=== PATIENT | male | born 1980 | race Caucasian/White ===

== ENCOUNTER 2019-06-04 10:26 | Outpatient (CLI) | payer MEDICAID, SELFPAY ==
[2019-06-04 11:35] LABS: Chol HDL Ratio 5.33 mg/dL (1.0-5.00); Cholesterol 192 mg/dL (0-200); HDL Cholesterol 36 mg/dL (60-100); LDL Cholesterol Calculated 110 mg/dL (50-129); LDL HDL Ratio 3.06 RATIO (0.00-3.22); Triglycerides 229 mg/dL (0-150)
[2019-06-04 12:24] LABS: Estmated Average Glucose 235; Hemoglobin A1C 9.8 % (4.0-6.0)
== END 2019-06-04 10:27 | disposition home or self-care (01) ==
LOC: LAB 10:33
PROVIDERS: Family Provider Family Medicine; PCP Family Medicine; Visit Provider Nurse Practitioner
DX: F31.73 Bipolar disorder, in partial remission, most recent episode manic (principal); Z79.899 Other long term (current) drug therapy
CPT/HCPCS: 80061; 83036

== ENCOUNTER → 2019-07-09 07:54 | Outpatient (BNVA) | payer MEDICAID, SELFPAY | PROVIDERS: Family Provider Family Medicine; PCP Family Medicine; Visit Provider Social Worker Clinical | DX: F43.12 Post-traumatic stress disorder, chronic (principal); F33.1 Major depressive disorder, recurrent, moderate; F10.20 Alcohol dependence, uncomplicated | CPT/HCPCS: 90834 ==

== ENCOUNTER 2019-07-10 10:40 | Emergency (ER) | payer MEDICAID, SELFPAY ==
[2019-06-09 16:46] VITALS: BP 162/82; BMI 64.6
== END 2019-07-10 14:25 | disposition admitted as inpatient to this hospital (09) ==
LOC: ER 07-23 10:20
PROVIDERS: Emergency Provider Emergency Medicine; Family Provider Family Medicine
DX: R00.2 Palpitations (principal); I51.7 Cardiomegaly; F17.210 Nicotine dependence, cigarettes, uncomplicated; E66.01 Morbid (severe) obesity due to excess calories; K21.9 Gastro-esophageal reflux disease without esophagitis; F43.10 Post-traumatic stress disorder, unspecified; Z79.82 Long term (current) use of aspirin
CPT/HCPCS: 36415; 80053; 80307; 81001; 84443; 85025; 93005; 99284; 99285; A9270

== ENCOUNTER 2019-07-10 10:40 | Inpatient (IN) | payer MEDICAID, SELFPAY ==
[2019-06-09 16:46] VITALS: BP 162/82; BMI 64.6
[2019-07-10 10:42] VITALS: BP 172/109; PULSE 78; RESP 20; TEMP 36.6; O2SAT 97; BMI 62.5
--- NOTE | 2019-07-10 11:02 | PC.NURSE ---
Unable to place paper scrubs on patient due to size. Patients clothes checked at this time, no strings present in clothes. Boots and jacket obtained from patient at this time. Patient notified that we will need urine for a sample, states he is unable to go at this time, pt provided with ice water at this time. Sitter present with patient.
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
--- NOTE | 2019-07-10 11:11 | ECG_ITS ---
Measurements Intervals [place] Rate: 73 P: 55 [place]: 219 QRS: 26 QRSD: 93 T: 23 QT: 396 QTc: 437 SINUS RHYTHM WITH FIRST DEGREE AV BLOCK LOW QRS VOLTAGE IN PRECORDIAL LEADS [QRS DEFLECTION < 1.0 mV IN CHEST LEADS] Compared to ECG 11/07/2017 00:48:38 Low QRS voltage now present Electronically Signed On 07-10-2019 22:16:28 BACK CLOSER by Hank Mora M.D. [email or web address]
[2019-07-10 11:36] LABS: Basophils % 0.4 %; Eosinophils % 0.5 %; Hemoglobin 13.2 g/dL (11.7-16.6); Lymphocytes # 1.7 10^3/uL (0.8-4.8); Lymphocytes % 21.3 %; Mean Corpuscular HGB Conc 31.4 g/dL (30.0-36.0); Mean Corpuscular Hemoglobin 25.3 pg (28.0-34.0); Mean Corpuscular Volume 80.6 fL (80-94); Mean Platelet Volume 9.7 fL (7.4-10.4); Monocytes # 0.6 10^3/uL (0.2-0.9); Monocytes % 7.9 %; Neutrophils # 5.7 10^3/uL (1.8-7.7); Neutrophils % 69.4 %; Nucleated Red Blood Cells % 0 %; Platelet Count 294 10^3/cmm (130-400); Red Blood Count 5.21 10^6/uL (4.1-5.3); Red Cell Distribution Width 13.2 % (12.1-15.1); White Blood Count 8.1 10^3/uL (4.0-10.0)
[2019-07-10 12:07] LABS: Alanine Aminotransferase 56 U/L (0-41); Albumin Level 4.4 g/dL (3.5-5.2); Alkaline Phosphatase 80 IU/L (40-130); Anion Gap 15.8 (5-19); Aspartate Amino Transferase 31 U/L (0-40); Blood Urea Nitrogen 11 mg/dL (6-20); Calcium 9.7 mg/dL (8.5-10.5); Carbon Dioxide 27 mmol/L (22-29); Chloride 100 mmol/L (98-107); Globulin 3.3 g/dL (1.3-4.6); Glomerular Filtration Rate 83.2 mL/min (90-130); Glucose 166 mg/dL (65-115); Potassium 3.8 mmol/L (3.5-5.1); Sodium 139 mmol/L (136-145); Thyroid Stimulating Hormone 0.81 uIU/mL (0.27-4.20); Total Bilirubin 0.5 mg/dL (0.15-1.2); Total Protein 7.7 g/dL (6.6-8.7)
[2019-07-10 12:09] LABS: Acetaminophen < 5.0 ug/mL (10-30); Alcohol Level < 10 mg/dL (0-10); Salicylate < 0.3 mg/dL (3-10)
[2019-07-10 13:18] LABS: Urine Color Dark Yellow (Yellow)
[2019-07-10 13:19] LABS: Add Urine Microscopic? YES; Bilirubin Urine 1+ (NEGATIVE); Blood Urine Neg (Negative); Glucose Urine UA Norm (Normal); Ketones Urine 1+ (Negative); Leukocyte Esterase Urine Negative (Negative); Nitrate Urine Negative (Negative); Protein Urine Trace (Negative); Urine Appearance Clear (CLEAR); Urobilinogen Urine 1 mg/dL (Negative); pH Urine 5 (5-7)
[2019-07-10 13:21] LABS: Add Urine Culture? No; Amorphous Sediment Urine TRACE; Bacteria Urine TRACE; Mucus Urine 2+; Squamous Epithelial Cell Urine 0-4 (0-5); WBC Urine 0-4 /hpf (0-5)
[2019-07-10 13:41] LABS: Amphetamines Screen Urine Negative (Negative); Barbiturates Screen Urine Negative (Negative); Benzodiazepines Screen Urine Negative (Negative); Cocaine Screen Urine Negative (Negative); Opiate Screen Urine Negative (Negative); PCP Screen Urine Negative (Negative); THC Screen Urine Negative (Negative)
[2019-07-10 14:19] VITALS: BP 157/81; PULSE 81; RESP 20; O2SAT 99
[2019-07-10 14:38] VITALS: BP 156/84; PULSE 79; RESP 20; TEMP 36.9; O2SAT 99
--- NOTE | 2019-07-10 15:46 | XR_ITS ---
WS: [id number] Right hand, 3 views, 07/10/2019 Clinical Data: POSSIBLE FOREIGN BODY IN RIGHT HAND Comparison: Right hand, 07/15/2018 Findings: No fractures or dislocations are seen. The epiphyses are normal. The soft tissues are unremarkable. T he joint spaces are normal. No radiopaque foreign bodies can be seen. XR/XR hand RT min 3V* [id number] Impression: Negative right hand.
[2019-07-10 16:58] LABS: Glucose Point of Care 158 mg/dL (70-110)
[2019-07-10 19:44] LABS: Glucose Point of Care 140 mg/dL (70-110)
[2019-07-10] MEDS: insulin glargine 100 units/1 mL 60 UNIT SUBCUT (20:31)
[2019-07-10 20:37] VITALS: BP 157/76; PULSE 82; RESP 18; TEMP 36.8; O2SAT 97
[2019-07-11 06:00] VITALS: BP 112/70; PULSE 71; RESP 18; TEMP 36.6; O2SAT 97
[2019-07-11 06:37] LABS: Glucose Point of Care 134 mg/dL (70-110)
[2019-07-11] MEDS: acetaminophen 325 mg Tablet 650 MG PO ×2 (06:54→16:35)
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
[2019-07-11] MEDS: insulin glargine 100 units/1 mL 60 UNIT SUBCUT ×2 (08:38→17:30)
[2019-07-11] MEDS: aspirin 81 mg EC Tablet PO (08:39)
[2019-07-11] MEDS: metformin 500 mg Tablet 1000 MG PO ×2 (08:39→17:29)
[2019-07-11] MEDS: hydroCHLOROthiazide 25 mg Tablet 50 MG PO (08:39)
[2019-07-11] MEDS: pantoprazole DR 40 mg Tablet PO (08:39)
[2019-07-11] MEDS: lisinopril 20 mg Tablet 40 MG PO (08:40)
[2019-07-11] MEDS: spironolactone 25 mg Tablet 50 MG PO (08:40)
[2019-07-11 14:00] VITALS: BP 134/89
[2019-07-11] MEDS: lamoTRIgine 25 mg Tablet PO (15:08)
[2019-07-11] MEDS: neomycin-poly-bacitracin oint 28 gm 1 APPLIC TOPICAL (17:29)
[2019-07-11] MEDS: ziprasidone hcl 40 mg Capsule PO (17:30)
[2019-07-11 20:22] LABS: Glucose Point of Care 114 mg/dL (70-110)
[2019-07-11 20:38] VITALS: BP 117/73; PULSE 76; RESP 16; TEMP 36.4; O2SAT 97
[2019-07-12 06:00] VITALS: BP 123/76; PULSE 70; RESP 24; TEMP 36.6; O2SAT 97; BMI 62.5
[2019-07-12 06:32] LABS: Glucose Point of Care 112 mg/dL (70-110)
[2019-07-12] MEDS: ziprasidone hcl 40 mg Capsule PO ×2 (07:32→16:53)
[2019-07-12] MEDS: aspirin 81 mg EC Tablet PO (08:29)
[2019-07-12] MEDS: metformin 500 mg Tablet 1000 MG PO ×2 (08:30→16:54)
[2019-07-12] MEDS: pantoprazole DR 40 mg Tablet PO (08:30)
[2019-07-12] MEDS: hydroCHLOROthiazide 25 mg Tablet 50 MG PO (08:30)
[2019-07-12] MEDS: lisinopril 20 mg Tablet 40 MG PO (08:31)
[2019-07-12] MEDS: lamoTRIgine 25 mg Tablet PO (08:31)
[2019-07-12] MEDS: spironolactone 25 mg Tablet 50 MG PO (08:31)
[2019-07-12] MEDS: insulin glargine 100 units/1 mL 60 UNIT SUBCUT ×2 (08:32→16:54)
[2019-07-12] MEDS: neomycin-poly-bacitracin oint 28 gm 1 APPLIC TOPICAL ×2 (08:32→16:53)
[2019-07-12 13:22] VITALS: BP 140/84
[2019-07-12] MEDS: acetaminophen 325 mg Tablet 650 MG PO ×2 (13:23→19:34)
[2019-07-12 14:02] VITALS: BP 131/81; PULSE 90; RESP 20; TEMP 37.1; O2SAT 97
--- NOTE | 2019-07-12 14:41 | P.PN_ITS ---
Subjective NPU Subjective: Interval history: Tyree presents today reporting that he slept pretty intensely last night. At first he thought it might be something to do with the medication but we discussed the fact that he gets the same dose of medication in the morning that he does in the evening. We reviewed the fact that he had not gotten his CPAP from respiratory yet but will be here tonight. Given his size and level of apnea is much more likely that absence of the CPAP is the reason for his significant somnolence. He is meeting with his significant other at visitation. He wants to see how that's going and how she thinks he's doing. The plan is after discharge will be moving in a trailer with his significant other is with whom he and possibly some children. He reports eating okay. Mental Status Exam MSE Comments: This is a morbidly obese white male with adequate dressing, grooming and eye contact. No abnormal movements except for mild psychomotor retardation. Cooperative with exam in no acute distress. Speech was normal rate and volume. Mood described as better today affect slightly subdued. Thought process organized. Thought content: Patient denied any suicidal or homicidal ideations, there were no delusions reported noted, he denied any auditory or visual hallucinations. Attention and concentration were intact and memory appeared reliable but none were formally tested. He is alert and oriented ?3. Insight and judgment appeared fair. Vitals/I&O/Wt Last Vital Signs Temp 98.8 F 07/12/19 14:02 Pulse 90 07/12/19 14:02 Resp 20 H 07/12/19 14:02 BP 131/81 07/12/19 14:02 Pulse Ox 97 07/12/19 14:02 Weight last 48 hrs Weight 197.766 kg Data NPU : 07/10/19 11:29 07/10/19 11:29 A&P Additional A&P Information This is a morbidly obese middle-aged white male with a long history of trauma, alcohol use disorder and depression who presents off of medication with signs of cluster B pathology who is open to a medication trial as he presents with reports of suicidal ideation and recent cutting for the first time. 1. Continue current medication. 2. Encourage individual, group and milieu therapy. 3. Encourage continued sober living treatment post discharge. 4. Could consider Vyvanse for his reported binge eating disorder. Involuntary Hold Information 96 Hour Hold: 96 Hour Involuntary Admission: No Attestations NPU Medical Necessity Statement*: Inpatient hospitalization is medically necessary in the clinically appropriate intervention at this time. We will monitor medications and titrate as indicated. Likely length of stay 2-4 days. Coding Level of Care Code Acute Educational Manager for Christin Chang
[2019-07-12 20:45] LABS: Glucose Point of Care 141 mg/dL (70-110)
[2019-07-12] MEDS: trazodone 50 mg Tablet PO (20:45)
[2019-07-12 21:39] VITALS: BP 108/70; PULSE 94; RESP 18; TEMP 36.6; O2SAT 97
--- NOTE | 2019-07-12 21:46 | PC.NURSE ---
20:45 Patient given PRN Trazodone for sleep
[2019-07-12 23:30] VITALS: PULSE 95; RESP 16; O2SAT 96
[2019-07-13 06:00] VITALS: BP 134/72; PULSE 69; RESP 17; TEMP 36.3; O2SAT 96
[2019-07-13 06:21] LABS: Glucose Point of Care 105 mg/dL (70-110)
[2019-07-13] MEDS: ziprasidone hcl 40 mg Capsule PO ×2 (06:28→17:26)
[2019-07-13] MEDS: insulin glargine 100 units/1 mL 60 UNIT SUBCUT ×2 (09:14→17:26)
[2019-07-13] MEDS: hydroCHLOROthiazide 25 mg Tablet 50 MG PO (09:16)
[2019-07-13] MEDS: lisinopril 20 mg Tablet 40 MG PO (09:16)
[2019-07-13] MEDS: pantoprazole DR 40 mg Tablet PO (09:16)
[2019-07-13] MEDS: spironolactone 25 mg Tablet 50 MG PO (09:16)
[2019-07-13] MEDS: lamoTRIgine 25 mg Tablet PO (09:16)
[2019-07-13] MEDS: neomycin-poly-bacitracin oint 28 gm 1 APPLIC TOPICAL ×2 (09:17→17:26)
[2019-07-13] MEDS: aspirin 81 mg EC Tablet PO (09:17)
[2019-07-13] MEDS: metformin 500 mg Tablet 1000 MG PO ×2 (09:17→17:26)
[2019-07-13] MEDS: acetaminophen 325 mg Tablet 650 MG PO (11:06)
[2019-07-13 14:00] VITALS: BP 102/68; PULSE 92; RESP 18; TEMP 36.8; O2SAT 97
[2019-07-13 15:00] LABS: Glucose Point of Care 117 mg/dL (70-110)
--- NOTE | 2019-07-13 16:00 | P.PN_ITS ---
Subjective NPU Subjective: Interval history: Tyree presents today reporting that he is managing the medication fairly well and that he has been in conversation with his family about where they go from here. We had another discussion about Lamictal and the risk for Hudson-Deric syndrome as well as our plan for titration of the medication after discharge. We agree that if he continues to d o well and feels safe that we would discharge tomorrow. Mental Status Exam MSE Comments: This is a morbidly obese white male with adequate dressing, grooming and eye contact. No abnormal movements except for mild psychomotor retardation. Cooperative with exam in no acute distress. Speech was normal ra te and volume. Mood described as pretty good affect brighter. Thought process organized. Thought content: Patient denied any suicidal or homicidal ideations, there were no delusions reported noted, he denied any auditory or visual hallucinations. Attention and concentration were intact and memory appeared reliable but none were formally tested. He is alert and oriented ?3. Insight and judgment appeared fair. Vitals/I&O/Wt Last Vital Signs Temp 98.2 F 07/13/19 14:00 Pulse 92 07/13/19 14:00 Resp 18 07/13/19 14:00 BP 102/68 07/13/19 14:00 Pulse Ox 97 07/13/19 14:00 Weight last 48 hrs Weight 197.766 kg Data NPU : 07/10/19 11:29 07/10/19 11:29 A&P Additional A&P Information This is a morbidly obese middle-aged white male with a long history of trauma, alcohol use disorder and depression who presents off of medication with signs of cluster B pathology who is open to a medication trial as he presents with reports of suicidal ideation and recent cutting for the first time. 1. Continue current medication. 2. Encourage individual, group and milieu therapy. 3. Encourage continued sober living treatment post discharge. 4. Could consider Vyvanse for his reported binge eating disorder. Involuntary Hold Information 96 Hour Hold: 96 Hour Involuntary Admission: No Attestations NPU Medical Necessity Statement*: Inpatient hospitalization is medically necessary in the clinically appropriate intervention at this time. We will monitor medications and titrate as indicated. Likely length of stay 1-2 days. Tentative plan for discharge tomorrow. Coding Level of Care Code Acute Documentation Billing Clerk for Christin Chang
[2019-07-13 17:12] LABS: Glucose Point of Care 130 mg/dL (70-110)
[2019-07-13 19:40] LABS: Glucose Point of Care 139 mg/dL (70-110)
[2019-07-13] MEDS: trazodone 50 mg Tablet PO (20:38)
--- NOTE | 2019-07-13 20:40 | PC.NURSE ---
TRAZODONE 50 MG PO GIVEN SLEEP AIDE.
[2019-07-13 22:00] VITALS: BP 136/83; PULSE 101; RESP 19; TEMP 36.7; O2SAT 97
[2019-07-14 01:01] VITALS: PULSE 90; RESP 16; O2SAT 96
[2019-07-14 06:00] VITALS: BP 142/92; PULSE 84; RESP 20; TEMP 36.3; O2SAT 98
[2019-07-14] MEDS: ziprasidone hcl 40 mg Capsule PO (06:11)
[2019-07-14 06:15] LABS: Glucose Point of Care 113 mg/dL (70-110)
[2019-07-14] MEDS: metformin 500 mg Tablet 1000 MG PO (08:57)
[2019-07-14] MEDS: lisinopril 20 mg Tablet 40 MG PO (08:57)
[2019-07-14] MEDS: aspirin 81 mg EC Tablet PO (08:57)
[2019-07-14] MEDS: pantoprazole DR 40 mg Tablet PO (08:57)
[2019-07-14] MEDS: lamoTRIgine 25 mg Tablet PO (08:58)
[2019-07-14] MEDS: spironolactone 25 mg Tablet 50 MG PO (08:58)
[2019-07-14] MEDS: hydroCHLOROthiazide 25 mg Tablet 50 MG PO (08:59)
[2019-07-14] MEDS: insulin glargine 100 units/1 mL 60 UNIT SUBCUT (09:01)
[2019-07-14 12:01] LABS: Glucose Point of Care 123 mg/dL (70-110)
[2019-07-14 14:10] VITALS: BP 142/92; PULSE 84; RESP 20; TEMP 36.3; O2SAT 98
== END 2019-07-14 14:52 | disposition home or self-care (01) | DRG 881 ==
LOC: ER 14:02 → NP 14:16
PROVIDERS: Admitting Provider Psychiatry & Neurology Psychiatry; Emergency Provider Emergency Medicine; Family Provider Family Medicine; PCP Family Medicine; Visit Provider Psychiatry & Neurology Psychiatry
DX: F32.9 Major depressive disorder, single episode, unspecified (principal); Z68.44 Body mass index [BMI] 60.0-69.9, adult; R45.851 Suicidal ideations; E66.01 Morbid (severe) obesity due to excess calories; E11.9 Type 2 diabetes mellitus without complications; I10 Essential (primary) hypertension; F43.11 Post-traumatic stress disorder, acute; F60.89 Other specific personality disorders
CPT/HCPCS: 12345; 36415; 36416; 73130; 80053; 80307; 81001; 82962; 84443; 85025; 93005; 94660; 96372; 99284; A9270; J1815

== ENCOUNTER 2019-07-14 22:54 | Emergency (ER) | payer MEDICAID, SELFPAY ==
[2019-06-09 16:46] VITALS: BP 162/82; BMI 64.6
[2019-07-14 22:56] VITALS: BP 141/83; PULSE 84; RESP 16; TEMP 36.6; O2SAT 100; BMI 61.0
--- NOTE | 2019-07-14 23:13 | ED_ITS ---
HPI - Psych General: Chief Complaint: Psychiatric Symptoms Stated Complaint: Self harm Time Seen by Provider: 07/14/19 23:13 History of Present Illness: HPI Narrative: Patient is a 38-year-old male comes into the ED for self-harm. Patient has a 2 inch superficial cut to Calf. He was discharged from [facility] today and states that he went home and there is significant amount of stress when the to the department. [facility] ED PFSH: Statuses (acute, chronic, etc) shown below reflect problem list status as previously entered and may not be historically accurate Medical History Binge eating disorder DJD (degenerative joint disease) Gallstones GERD (gastroesophageal reflux disease) GI disease Morbid obesity Nephrolithiasis Nephropathy Posttraumatic stress disorder Tinea cruris Social History Smoking and tobacco status: never smoked Discharge Plan Discharge Prescriptions: No Action Aldactazide 50-50 mg Tablet 1 tab PO DAILY RF: 0 metformin 1,000 mg Tablet 1,000 mg PO BID RF: 0 lisinopril 40 mg Tablet 40 mg PO DAILY RF: 0 Dexilant 30 mg Capsule,Biphase Delayed Releas 30 mg PO DAILY RF: 0 Aspir-81 81 mg Tablet,Delayed Release (Dr/Ec) 81 mg PO DAILY RF: 0 Lantus Solostar U-100 Insulin 100 unit/mL (3 mL) Insulin Pen 60 unit SUBCUT BID RF: 0 lamotrigine 25 mg Tablet 25 mg PO DAILY 17 Days Qty: 38 RF: 0 ziprasidone HCl 40 mg Capsule 40 mg PO 0700,1700 30 Days Qty: 60 RF: 1 Lamictal 100 mg tablet 100 mg PO DAILY 30 Days Qty: 30 RF: 1 Coding Level of Care Code ED Technical Sales Support Specialist for Christin Chang
--- NOTE | 2019-07-14 23:26 | XRR_ITS ---
PROCEDURE INFORMATION: Exam: XR Left Hand Exam date and time: 07/15/2019 12:17 AM Age: 38 years old Clinical indication: Pain; Hand; Left; Additional info: Hand pain TECHNIQUE: Imaging protocol: XR Left hand. Views: 3 or more views. COMPARISON: No relevant prior studies available. FINDINGS: Bones/joints: osseous structures of the hand are without an acute process. Distal radioulnar joint and radiocarpal joints grossly normal. Carpus without fracture. Metacarpals and phalangeal without fracture or dislocation. No erosive changes or periarticular calcifications. Soft tissues: See Bones/joints Finding. XR/XR hand LT min 3V* [id number] IMPRESSION: No acute process.
--- NOTE | 2019-07-14 23:29 | ED_ITS ---
Entered by Kajal Levy, acting as scribe for Nancy Vance MD Jul 14, 2019 22:54 HPI - Psych General: Chief Complaint: Psychiatric Symptoms Stated Complaint: Self harm Time Seen by Provider: 07/14/19 23:13 Source: patient Mode of arrival: EMS Limitations: no limitations History of Present Illness: HPI Narrative: 38 yo m came to the er by [facility] for self harm. 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 Pt is not Si or HI, pt did admit to self harm. Pt has scratched his leg in 3 different spots. Pt states that he was just released from [facility] stress unit this afternoon. 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 police captain) Duration: intermittent Relieving factors: none Exacerbating factors: none Associated symptoms: Reports no associated symptoms; Deny depression Treatments prior to arrival: none If self harm: self-inflicted trauma Review of Systems General: Reports: other (negative unless marked) Const: Denies: fever, chills, body aches or change in appetite Eyes: Denies: blurry vision or eye discomfort ENMT: Denies: throat pain or dental pain Card: Denies: chest pain Resp: Denies: shortness of breath GI: Denies: abdominal pain, nausea, vomiting or diarrhea : Denies: painful urination Musc: Denies: neck pain or back pain Skin/Breast: Denies: rash Neuro: Denies: headache Psych: Denies: depression Carl/Lymph: Denies: easy bruising All/Imm: Denies: hives PFSH ED PFSH: Statuses (acute, chronic, etc) shown below reflect problem list status as previously entered and may not be historically accurate Medical History Binge eating disorder DJD (degenerative joint disease) Gallstones GERD (gastroesophageal reflux disease) GI disease Morbid obesity Nephrolithiasis Nephropathy Posttraumatic stress disorder Tinea cruris Social History Smoking and tobacco status: never smoked Physical Exam Const: COMMON NORMALS: no apparent distress, oriented x3 and healthy appearing HENMT: COMMON NORMALS: normocephalic and head/scalp atraumatic HEAD & SCALP: normocephalic and atraumatic Eye: COMMON NORMALS: PERRL and EOMs intact bilaterally PUPIL: Yes PERRL Neck/C-Spine: COMMON NORMALS: full ROM and supple Chest: COMMONS NORMALS: inspection of chest normal and palpation of chest normal Resp: COMMON NORMALS: normal respiratory effort, no retractions, no use of accessory muscles and clear to auscultation bilaterally AUSCULTATION: clear to auscultation bilaterally Cardio: COMMON NORMALS: regular rate, regular rhythm and no murmurs RATE: regular rate RHYTHM: regular rhythm GI: COMMON NORMALS: normal to inspection, nondistended, normoactive bowel sounds, soft to palpation, non-tender and no masses PALPATION: Yes soft Extremity: COMMON NORMALS: normal to inspection and full ROM OTHER: contusion to left hand Neuro: COMMON NORMALS: oriented x3, moves all extremities and no focal motor deficits Psych: COMMON NORMALS: mental status grossly normal, thought process normal and cooperative THOUGHT PROCESS: normal thought process Skin: COMMON NORMALS: no rashes or lesions noted and no wounds GENERAL SKIN EXAM: no rashes or lesions noted MDM - Psych MDM Narrative: Medical decision making narrative: Patient presents with head contusion x-ray shows no fracture. He is not suicidal or homicidal. I feel he is stable for discharge is return if worsening. Imaging Data^: xr L hand: Attestation: I personally reviewed and interpreted this imaging study as follows: My impression: no acute fx Discharge Plan Discharge Patient Disposition: Home, Self-Care Clinical Impression: Contusion of hand, left Qualifiers: Encounter type: initial encounter Qualified Code(s): S60.222A - Contusion of left hand, initial encounter Condition: Stable Prescriptions: No Action Aldactazide 50-50 mg Tablet 1 tab PO DAILY RF: 0 metformin 1,000 mg Tablet 1,000 mg PO BID RF: 0 lisinopril 40 mg Tablet 40 mg PO DAILY RF: 0 Dexilant 30 mg Capsule,Biphase Delayed Releas 30 mg PO DAILY RF: 0 Aspir-81 81 mg Tablet,Delayed Release (Dr/Ec) 81 mg PO DAILY RF: 0 Lantus Solostar U-100 Insulin 100 unit/mL (3 mL) Insulin Pen 60 unit SUBCUT BID RF: 0 lamotrigine 25 mg Tablet 25 mg PO DAILY 17 Days Qty: 38 RF: 0 ziprasidone HCl 40 mg Capsule 40 mg PO 0700,1700 30 Days Qty: 60 RF: 1 Lamictal 100 mg tablet 100 mg PO DAILY 30 Days Qty: 30 RF: 1 Discharge Orders: Discharge Order (Routine); Ordered 07/15/19 Ordered By: Nancy Vance Referrals: Quita Gutiérrez DO [Primary Care Provider] - 4-7 days Discharge Diet: Advance as tolerated Discharge Activity: Resume usual activity Patient Instructions: Contusion in Adults (ED) Discharge Date/Time: 07/15/19 00:33 Coding Level of Care Code ED Car Storer for g Fwmarvel The documentation recorded by the Cam beltran Stephanie Lyn, accurately reflects the service I personally performed and the decisions made by Pinky jenkins Korby, MD Jul 14, 2019 22:54
--- NOTE | 2019-07-15 | PC.NURSE ---
pt stated he had just been discharged from [facility] this afternoon. He went home and had a disagreement with some room mates, locked himself in the bathroom and began cutting . he has a small superficial scratch on his left calf. he denies SI
[2019-07-15 00:32] VITALS: BP 141/83; PULSE 97; RESP 16; O2SAT 95
== END 2019-07-15 00:33 | disposition home or self-care (01) ==
PROVIDERS: Emergency Provider Emergency Medicine; Family Provider Family Medicine; PCP Family Medicine
DX: S60.222A Contusion of left hand, initial encounter (principal); X58.XXXA Exposure to other specified factors, initial encounter
CPT/HCPCS: 73130; 99284

== ENCOUNTER 2019-07-18 21:15 | Emergency (ER) | payer MEDICAID, SELFPAY ==
[2019-06-09 16:46] VITALS: BP 162/82; BMI 64.6
== END 2019-07-18 22:39 | disposition home or self-care (01) ==
LOC: ER 07-28 14:06
PROVIDERS: Emergency Provider Nurse Practitioner Family; Family Provider Family Medicine
DX: S39.012A Strain of muscle, fascia and tendon of lower back, initial encounter (principal); S16.1XXA Strain of muscle, fascia and tendon at neck level, initial encounter; W19.XXXA Unspecified fall, initial encounter; E66.01 Morbid (severe) obesity due to excess calories; F50.81 Binge eating disorder; K21.9 Gastro-esophageal reflux disease without esophagitis; F43.10 Post-traumatic stress disorder, unspecified; F31.9 Bipolar disorder, unspecified; F17.210 Nicotine dependence, cigarettes, uncomplicated; Z79.82 Long term (current) use of aspirin

== ENCOUNTER 2019-07-18 21:15 | Emergency (ER) | payer MEDICAID, SELFPAY ==
[2019-06-09 16:46] VITALS: BP 162/82; BMI 64.6
[2019-07-18 21:26] VITALS: PULSE 111; RESP 18; TEMP 36.9; O2SAT 96; BMI 62.5
--- NOTE | 2019-07-18 21:32 | XR_ITS ---
WS: [id number] XR wrist RT min 3V* [id number] REASON FOR EXAM: fall FINDINGS: The metacarpals carpals are normal. The ulna and radius show no abnormalities or unusual edema. There is no fractures or dislocations of the wrist or proximal hand noted. XR/XR wrist RT min 3V* [id number] IMPRESSION: No acute fractures of the wrist or proximal hand.
--- NOTE | 2019-07-18 21:33 | XR_ITS ---
WS: [id number] XR forearm RT 2V [id number] REASON FOR EXAM: fall FINDINGS: There is mild spurring off the olecranon process at the elbow. The ulna and radius are normal no fractures or displacement. XR/XR forearm RT 2V [id number] IMPRESSION: No fractures of the forearm.
[2019-07-18 22:17] VITALS: BP 146/88; PULSE 111; RESP 18; TEMP 36.9; O2SAT 97
--- NOTE | 2019-07-18 22:26 | W.ED.FALL ---
HPI - Fall General: Chief Complaint: Fall Stated Complaint: fall Time Seen by Provider: 07/18/19 22:02 History of Present Illness: HPI Narrative: Fell and hit table this evening and has pain to his right forearm. complaint: fall Onset (ago): hour(s) Fall from: standing Fall witnessed: no Place fall occurred: home Loss of consciousness: None Symptoms prior to fall: none Context: tripped/slipped Location of injury - extremities: Right: forearm Severity: mild Severity scale (1-10): 3 Quality: aching Associated symptoms-after fall: Reports no associated symptoms; Denies abdominal pain, chest pain or headache(s) Review of Systems Const: Denies: fever, chills or body aches Eyes: Denies: change in vision or blurry vision ENMT: Denies: throat pain or nasal congestion Card: Denies: chest pain or shortness of breath on exertion Resp: Denies: shortness of breath, productive cough or non-productive cough GI: Denies: abdominal pain, nausea or vomiting : Denies: difficulty urinating Musc: Reports: extremity pain Skin/Breast: Denies: rash Neuro: Denies: headache Psych: Denies: anxiety or depression Carl/Lymph: Denies: easy bruising PFSH ED PFSH: Social History Smoking and tobacco status: never smoked Physical Exam Const: COMMON NORMALS: no apparent distress, average body habitus and oriented x3 HENMT: COMMON NORMALS: normocephalic HEAD & SCALP: normal to inspection and normocephalic FACE & SINUS: normal facial exam Eye: COMMON NORMALS: conjunctivae normal GENERAL EYE: normal appearance of both eyes CONJUNCTIVA: Yes conjunctivae normal Neck/C-Spine: COMMON NORMALS: no JVD Chest: COMMONS NORMALS: inspection of chest normal Resp: COMMON NORMALS: normal respiratory effort and clear to auscultation bilaterally AUSCULTATION: clear to auscultation bilaterally Cardio: COMMON NORMALS: no JVD, regular rate and regular rhythm RATE: regular rate RHYTHM: regular rhythm GI: COMMON NORMALS: normal to inspection, nondistended, normoactive bowel sounds Extremity: COMMON NORMALS: full ROM NARRATIVE EXTREMITY EXAM: Mild bruising to the right forearm middle part has good range of motion no swelling neurovascular status intact distal Neuro: COMMON NORMALS: oriented x3 Course Vital Signs: Vital signs: Vital Signs Temperature 98.5 F 07/18/19 22:17 Pulse Rate 111 H 07/18/19 22:17 Respiratory Rate 18 07/18/19 22:17 Blood Pressure 146/88 07/18/19 22:17 Pulse Oximetry 97 07/18/19 22:17 MDM - Fall Imaging Data^: Xray Ortho: My impression: Right radius with possible vein no misalignment seen in the middle aspect of the bone Discharge Plan Discharge Patient Disposition: Home, Self-Care Clinical Impression: Contusion Qualifiers: Encounter type: initial encounter Contusion area: forearm Laterality: right Qualified Code(s): S50.11XA - Contusion of right forearm, initial encounter Condition: Stable Prescriptions: No Action Aldactazide 50-50 mg Tablet 1 tab PO DAILY RF: 0 metformin 1,000 mg Tablet 1,000 mg PO BID RF: 0 lisinopril 40 mg Tablet 40 mg PO DAILY RF: 0 Dexilant 30 mg Capsule,Biphase Delayed Releas 30 mg PO DAILY RF: 0 aspirin [Aspir-81] 81 mg Tablet,Delayed Release (Dr/Ec) 81 mg PO DAILY RF: 0 Lantus Solostar U-100 Insulin 100 unit/mL (3 mL) Insulin Pen 60 unit SUBCUT BID RF: 0 lamotrigine 25 mg Tablet 25 mg PO DAILY 17 Days Qty: 38 RF: 0 ziprasidone HCl 40 mg Capsule 40 mg PO 0700,1700 30 Days Qty: 60 RF: 1 lamotrigine [Lamictal] 100 mg tablet 100 mg PO DAILY 30 Days Qty: 30 RF: 1 Discharge Orders: Discharge Order (Routine); Ordered 07/18/19 Ordered By: Nilay Sorto Referrals: Quita Gutiérrez DO [Family Provider] - Discharge Diet: Advance as tolerated Discharge Activity: Resume usual activity Patient Instructions: Contusion in Adults (ED) Activity Restrictions/Additional Instructions: Ice to the area. Take ibuprofen for discomfort. Follow-up if no significant provement. Coding Level of Care Code ED Data Processing Control Clerk for Christin Fwd Exam Comprehensive
[2019-07-18 22:38] VITALS: BP 140/88; PULSE 100; RESP 18; TEMP 36.9; O2SAT 100
== END 2019-07-18 22:39 | disposition home or self-care (01) ==
PROVIDERS: Emergency Provider Nurse Practitioner Family; Family Provider Family Medicine
DX: S50.11XA Contusion of right forearm, initial encounter (principal); W18.30XA Fall on same level, unspecified, initial encounter; Y92.009 Unspecified place in unspecified non-institutional (private) residence as the place of occurrence of the external cause
CPT/HCPCS: 73090; 73110; 99281; 99283

== ENCOUNTER 2019-07-21 21:54 | Emergency (ER) | payer MEDICAID, SELFPAY ==
[2019-06-09 16:46] VITALS: BP 162/82; BMI 64.6
== END 2019-07-22 02:12 | disposition admitted as inpatient to this hospital (09) ==
LOC: ER 08-27 11:54
PROVIDERS: Emergency Provider Emergency Medicine; Family Provider Family Medicine
DX: Z76.89 Persons encountering health services in other specified circumstances (principal)

== ENCOUNTER 2019-07-21 21:54 | Inpatient (IN) | payer MEDICAID, SELFPAY ==
[2019-06-09 16:46] VITALS: BP 162/82; BMI 64.6
[2019-07-21 22:09] VITALS: BP 142/105; PULSE 93; RESP 16; TEMP 37; O2SAT 97; BMI 63.7
--- NOTE | 2019-07-21 22:14 | ECG_ITS ---
Measurements Intervals [place] Rate: 91 P: 48 LA: 190 QRS: 10 QRSD: 78 T: -1 QT: 346 QTc: 427 SINUS RHYTHM LOW QRS VOLTAGE IN PRECORDIAL LEADS [QRS DEFLECTION < 1.0 mV IN CHEST LEADS] POSSIBLE ANTERIOR MYOCARDIAL INFARCTION , PROBABLY OLD [30 ms Q WAVE IN V3/V4, OR R < 0.2 mV IN V4] PROBABLE INFERIOR MYOCARDIAL INFARCTION , PROBABLY OLD [35 ms Q WAVE IN II/aVF] Compared to ECG 07/10/2019 11:40:40 Myocardial infarct finding now present First degree AV block no longer present Electronically Signed On 07-22-2019 13:17:37 DELIVERY STOCK CLERK by Laura Knapp M.D. [email or web address]
--- NOTE | 2019-07-21 22:15 | ED_ITS ---
Entered by Sandra Grubbs, acting as scribe for Kimberly Yu HPI - Anxiety General: Chief Complaint: Anxiety Stated Complaint: STRESSED Time Seen by Provider: 07/21/19 22:14 Source: patient and EMS Mode of arrival: EMS History of Present Illness: HPI narrative: 38 y/o male presents to the ED with complaint of stress and anxiety. Pt was recently seen for similar complaints. Pt states he had thoughts of harming himself earlier and wrapped a cord around his throat. Pt is here seeking help. He denies SI/HI at this time. complaint: anxiety Onset (ago): hour(s) Severity: similar to previous episodes Quality: constant History of similar episodes: Yes Provoking factors: emotional stress Relieving factors: nothing Associated symptoms: Deny chest pain, chills, confusion, diaphoresis, fever(s), headache(s), malaise, nausea, palpitations, syncope or vomiting Review of Systems General: Reports: other (negative unless marked) Const: Denies: fever, chills, body aches, fatigue, malaise or diaphoresis Eyes: Denies: change in vision or blurry vision ENMT: Denies: throat pain, painful swallowing, hoarseness, ear pain, ear discharge, Change in hearing or nasal discharge Card: Denies: chest pain, palpitations, irregular heart rhythm, syncope, pre- syncope, shortness of breath on exertion or shortness of breath when lying down Resp: Denies: shortness of breath, productive cough, non-productive cough, wheezing, coughing up blood or chest congestion GI: Denies: abdominal pain, nausea, vomiting, vomiting blood, coffee grounds in vomit, diarrhea, constipation, cramping, blood in stool or black tarry stool : Denies: flank pain, difficulty urinating, painful urination, urinary frequency, urinary urgency, decreased urine ouput, urinary incontinence or blood in urine Musc: Denies: neck pain, back pain, extremity pain, extremity swelling, joint pain, joint swelling, joint warmth or joint stiffness Skin/Breast: Denies: rash, skin tenderness or yellow skin Neuro: Denies: headache, numbness in extremities, weakness in extremities, changes in sensation, lack of coordination, difficulty walking, dizziness, vertigo or confusion Endo: Denies: excessive thirst, tired all the time, cold intolerance, excessive sweating, flushing or hot flashes Carl/Lymph: Denies: easy bruising, easy bleeding, petechiae or enlarged lymph nodes All/Imm: Denies: hives, throat swelling, tongue swelling, facial swelling or acute wheezing PFSH ED PFSH: Social History Smoking and tobacco status: former smoker Physical Exam Const: COMMON NORMALS: no apparent distress, oriented x3 and no limitations EXAM LIMITATIONS: no altered mental status GENERAL APPEARANCE: cooperative and well developed ORIENTATION/CONSCIOUSNESS: Yes awake HENMT: COMMON NORMALS: normocephalic, head/scalp atraumatic, hearing grossly normal bilaterally, external ears normal, EAC's normal, external nose normal and moist oral mucous membranes HEAD & SCALP: normal to inspection, normocephalic and atraumatic FACE & SINUS: normal facial exam and face symmetric NOSE: external nose normal and nares normal EXTERNAL EAR: Yes external ears normal EXTERNAL AUDITORY CANAL: EAC's normal MOUTH: oral and palatal mucosa normal and tongue normal Eye: COMMON NORMALS: PERRL, EOMs intact bilaterally, conjunctivae normal and no scleral icterus GENERAL EYE: normal appearance of both eyes and normal light reflex CONJUNCTIVA: Yes conjunctivae normal SCLERA: sclerae normal CORNEA: Yes corneas normal PUPIL: Yes PERRL DIRECT OPHTHALMOSCOPY: Yes normal light reflex Neck/C-Spine: COMMON NORMALS: full ROM, no lymphadenopathy, supple, no meningeal signs and no JVD GENERAL: Yes normal visual inspection and Yes trachea midline CERVICAL SPINE: Yes cervical ROM normal Chest: COMMONS NORMALS: inspection of chest normal and palpation of chest normal Resp: COMMON NORMALS: normal respiratory effort, no retractions, no use of accessory muscles and clear to auscultation bilaterally EFFORT & INSPECTION: Yes able to speak in complete sentences AUSCULTATION: clear to auscultation bilaterally Cardio: COMMON NORMALS: no JVD, regular rate, regular rhythm, S1 normal heart sound, S2 normal heart sound, no gallops, no clicks, no murmurs and no rub JUGULAR VENOUS DISTENTION: no JVD RATE: regular rate RHYTHM: regular rhyth m HEART SOUNDS: S1 normal and S2 normal GI: COMMON NORMALS: soft to palpation, non-tender, no hepatosplenomegaly and no masses INSPECTION: Yes normal to inspection PALPATION: Yes soft and Yes no hepatosplenomegaly : COMMON NORMALS: Yes no CVA tenderness BLADDER/KIDNEY EXAM: Yes no CVA tenderness Back/Pelvis: COMMON NORMALS: no CVA tenderness, thoracic and lumbar spine normal to inspection, no thoracic nor lumbar tenderness and thoraco-lumbar ROM normal Extremity: COMMON NORMALS: normal to inspection, full ROM, normal capillary refill, no joint enlargement, no clubbing, cyanosis or edema and no calf tenderness Neuro: COMMON NORMALS: oriented x3, CN's II-XII intact bilaterally, moves all extremities, no focal motor deficits and no sensory deficits noted MENINGEAL SIGNS: Yes no meningeal signs Skin: COMMON NORMALS: no rashes or lesions noted, skin turgor normal, no jaundice, no petechiae and no mottling GENERAL SKIN EXAM: no rashes or lesions noted and turgor normal Course Vital Signs: Vital signs: Vital Signs Temperature 98 F 07/22/19 02:23 Pulse Rate 87 07/22/19 02:23 Respiratory Rate 22 H 07/22/19 02:23 Blood Pressure 132/85 07/22/19 02:23 Pulse Oximetry 97 07/22/19 02:23 MDM - Anxiety MDM Narrative: Medical decision making narrative: The case was reviewed with Dr. Mallory. He agrees to admit. Affadvits were placed on the chart. EKG Data^: EKG 1: Attestation: I personally reviewed and interpreted this EKG as follows: EKG interpretation date: 07/21/19 EKG interpretation time: 22:46 Interpretation: Normal sinus rhythm at 91 beats a minute, normal intervals, no blocks, normal QTC. Lab Data: Attestation: I reviewed the patient's lab results. Labs: Lab Results 07/21/19 07/21/19 07/21/19 Range/Units 22:28 22:28 22:28 WBC 9.7 (4.0-10.0) 10^3/ uL RBC 5.32 H (4.1-5.3) 10^6/u L Hgb 13.8 (11.7-16.6) g/dL Hct 43.0 (42.0-52.0) % MCV 80.8 (80-94) fL MCH 25.9 L (28.0-34.0) pg MCHC 32.1 (30.0-36.0) g/dL RDW 14.5 (12.1-15.1) % Plt Count 370 (130-400) 10^3/c mm MPV 9.7 (7.4-10.4) fL Neut % (Auto) 69.0 % Lymph % (Auto) 19.7 % [place] % (Auto) 8.2 % Eos % (Auto) 2.3 % Baso % (Auto) 0.5 % Neut # (Auto) 6.7 (1.8-7.7) 10^3/u L Lymph # (Auto) 1.9 (0.8-4.8) 10^3/u L [place] # (Auto) 0.8 (0.2-0.9) 10^3/u L Eos # (Auto) 0.2 (0.0-0.8) 10^3/u L Baso # (Auto) 0.1 (0.0-0.1) 10^3/u L Nucleated RBC % (a uto) 0 % Nucleated RBCs # 0.0 /100WBC Sodium 133 L (136-145) mmol/L Potassium 3.4 L (3.5-5.1) mmol/L Chloride 94 L (98-107) mmol/L Carbon Dioxide 24 (22-29) mmol/L Anion Gap 18.4 (5-19) BUN 6 (6-20) mg/dL Creatinine 0.8 (0.7-1.2) mg/dL GFR Calculation 107.6 (90-130) mL/min Glucose 158 H (65-115) mg/dL Calcium 9.7 (8.5-10.5) mg/dL Total Bilirubin 0.5 (0.15-1.2) mg/dL AST 37 (0-40) U/L ALT 69 H (0-41) U/L Alkaline Phosphata se 84 (40-130) IU/L Total Protein 7.7 (6.6-8.7) g/dL Albumin 4.4 (3.5-5.2) g/dL Globulin 3.3 (1.3-4.6) g/dL TSH 1.26 (0.27-4.20) uIU/ mL Salicylates < 0.3 L (3-10) mg/dL Urine Opiates Scre en (Negative) ng/mL Acetaminophen < 5.0 L (10-30) ug/mL Ur Barbiturates Sc reen (Negative) ng/mL Phenytoin 0.8 L (10-20) ug/mL Valproic Acid 2.8 L (50-100) mcg/mL Carbamazepine 2.0 L (4.0-12.0) ug/mL Ur Phencyclidine S crn (Negative) ng/mL Ur Amphetamines Sc reen (Negative) ng/mL U Benzodiazepines Scrn (Negative) ng/mL [place] 0.1 L (0.6-1.2) mmol/L Urine Cocaine Scre en (Negative) ng/mL U Marijuana (THC) Screen (Negative) ng/mL Ethyl Alcohol < 10 (0-10) mg/dL 07/21/19 Range/Units 22:40 WBC (4.0-10.0) 10^3/ uL RBC (4.1-5.3) 10^6/u L Hgb (11.7-16.6) g/dL Hct (42.0-52.0) % MCV (80-94) fL MCH (28.0-34.0) pg MCHC (30.0-36.0) g/dL RDW (12.1-15.1) % Plt Count (130-400) 10^3/c mm MPV (7.4-10.4) fL Neut % (Auto) % Lymph % (Auto) % [place] % (Auto) % Eos % (Auto) % Baso % (Auto) % Neut # (Auto) (1.8-7.7) 10^3/u L Lymph # (Auto) (0.8-4.8) 10^3/u L [place] # (Auto) (0.2-0.9) 10^3/u L Eos # (Auto) (0.0-0.8) 10^3/u L Baso # (Auto) (0.0-0.1) 10^3/u L Nucleated RBC % (a uto) % Nucleated RBCs # /100WBC Sodium (136-145) mmol/L Potassium (3.5-5.1) mmol/L Chloride (98-107) mmol/L Carbon Dioxide (22-29) mmol/L Anion Gap (5-19) BUN (6-20) mg/dL Creatinine (0.7-1.2) mg/dL GFR Calculation (90-130) mL/min Glucose (65-115) mg/dL Calcium (8.5-10.5) mg/dL Total Bilirubin (0.15-1.2) mg/dL AST (0-40) U/L ALT (0-41) U/L Alkaline Phosphata se (40-130) IU/L Total Protein (6.6-8.7) g/dL Albumin (3.5-5.2) g/dL Globulin (1.3-4.6) g/dL TSH (0.27-4.20) uIU/ mL Salicylates (3-10) mg/dL Urine Opiates Scre en Negative (Negative) ng/mL Acetaminophen (10-30) ug/mL Ur Barbiturates Sc reen Negative (Negative) ng/mL Phenytoin (10-20) ug/mL Valproic Acid (50-100) mcg/mL Carbamazepine (4.0-12.0) ug/mL Ur Phencyclidine S crn Negative (Negative) ng/mL Ur Amphetamines Sc reen Negative (Negative) ng/mL U Benzodiazepines Scrn Negative (Negative) ng/mL [place] (0.6-1.2) mmol/L Urine Cocaine Scre en Negative (Negative) ng/mL U Marijuana (THC) Screen Negative (Negative) ng/mL Ethyl Alcohol (0-10) mg/dL Discharge Plan Discharge Patient Disposition: Admitted As Inpatient Admit Provider: Jareth Mallory Discharge Date/Time: 07/22/19 02:12 Coding Level of Care Code ED Flue Lining Dipper for Chg Fwd Exam Comprehensive The documentation recorded by the Romie beltran Ashley, accurately reflects the service I personally performed and the decisions made by Aimee jenkins Eli N
[2019-07-21 22:36] LABS: Basophils # 0.1 10^3/uL (0.0-0.1); Basophils % 0.5 %; Eosinophils # 0.2 10^3/uL (0.0-0.8); Eosinophils % 2.3 %; Hemoglobin 13.8 g/dL (11.7-16.6); Lymphocytes # 1.9 10^3/uL (0.8-4.8); Lymphocytes % 19.7 %; Mean Corpuscular HGB Conc 32.1 g/dL (30.0-36.0); Mean Corpuscular Hemoglobin 25.9 pg (28.0-34.0); Mean Corpuscular Volume 80.8 fL (80-94); Mean Platelet Volume 9.7 fL (7.4-10.4); Monocytes # 0.8 10^3/uL (0.2-0.9); Monocytes % 8.2 %; Neutrophils # 6.7 10^3/uL (1.8-7.7); Nucleated Red Blood Cells % 0 %; Platelet Count 370 10^3/cmm (130-400); Red Blood Count 5.32 10^6/uL (4.1-5.3); Red Cell Distribution Width 14.5 % (12.1-15.1); White Blood Count 9.7 10^3/uL (4.0-10.0)
[2019-07-21 22:51] LABS: Amphetamines Screen Urine Negative (Negative); Barbiturates Screen Urine Negative (Negative); Benzodiazepines Screen Urine Negative (Negative); Cocaine Screen Urine Negative (Negative); Opiate Screen Urine Negative (Negative); PCP Screen Urine Negative (Negative); THC Screen Urine Negative (Negative)
[2019-07-21 22:52] LABS: Lithium 0.1 mmol/L (0.6-1.2)
[2019-07-21 22:56] LABS: Acetaminophen < 5.0 ug/mL (10-30); Alanine Aminotransferase 69 U/L (0-41); Albumin Level 4.4 g/dL (3.5-5.2); Alcohol Level < 10 mg/dL (0-10); Alkaline Phosphatase 84 IU/L (40-130); Anion Gap 18.4 (5-19); Aspartate Amino Transferase 37 U/L (0-40); Blood Urea Nitrogen 6 mg/dL (6-20); Calcium 9.7 mg/dL (8.5-10.5); Carbon Dioxide 24 mmol/L (22-29); Chloride 94 mmol/L (98-107); Globulin 3.3 g/dL (1.3-4.6); Glomerular Filtration Rate 107.6 mL/min (90-130); Glucose 158 mg/dL (65-115); Phenytoin Dilantin 0.8 ug/mL (10-20); Potassium 3.4 mmol/L (3.5-5.1); Salicylate < 0.3 mg/dL (3-10); Sodium 133 mmol/L (136-145); Total Bilirubin 0.5 mg/dL (0.15-1.2); Total Protein 7.7 g/dL (6.6-8.7); Valproic Acid Level 2.8 mcg/mL (50-100)
[2019-07-21 23:02] LABS: Thyroid Stimulating Hormone 1.26 uIU/mL (0.27-4.20)
[2019-07-21] MEDS: LORazepam 1 mg Tablet 2 MG PO (23:55)
[2019-07-22 02:23] VITALS: BP 132/85; PULSE 87; RESP 22; TEMP 36.6; O2SAT 97
[2019-07-22 06:00] VITALS: BP 137/85; PULSE 78; RESP 19; TEMP 36.5; O2SAT 95
[2019-07-22 06:31] LABS: Glucose Point of Care 126 mg/dL (70-110)
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
[2019-07-22] MEDS: lamoTRIgine 25 mg Tablet PO (11:32)
[2019-07-22] MEDS: lamoTRIgine 100 mg Tablet PO (11:32)
[2019-07-22] MEDS: lisinopril 20 mg Tablet 40 MG PO (11:32)
[2019-07-22] MEDS: aspirin 81 mg EC Tablet PO (11:32)
[2019-07-22 11:42] VITALS: BP 137/85; PULSE 78; RESP 19; TEMP 36.5; O2SAT 95
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
== END 2019-07-22 12:03 | disposition home or self-care (01) | DRG 882 ==
LOC: ER 23:31 → NP 23:49
PROVIDERS: Admitting Provider Psychiatry & Neurology Psychiatry; Emergency Provider Emergency Medicine; Family Provider Family Medicine; Visit Provider Psychiatry & Neurology Psychiatry
DX: F43.24 Adjustment disorder with disturbance of conduct (principal); R45.851 Suicidal ideations; Z87.891 Personal history of nicotine dependence
CPT/HCPCS: 12345; 36415; 36416; 80053; 80156; 80164; 80178; 80185; 80307; 82962; 84443; 85025; 93005; 99282

== ENCOUNTER 2019-07-24 22:45 | Emergency (ER) | payer MEDICAID, SELFPAY ==
[2019-06-09 16:46] VITALS: BP 162/82; BMI 64.6
[2019-07-24 22:52] VITALS: BP 154/102; PULSE 88; RESP 17; TEMP 36.8; O2SAT 98; BMI 64.0
--- NOTE | 2019-07-24 23:24 | ECG_ITS ---
Measurements Intervals [place] Rate: 87 P: 59 PA: 203 QRS: 9 QRSD: 77 T: 28 QT: 348 QTc: 420 SINUS RHYTHM LOW QRS VOLTAGE IN PRECORDIAL LEADS [QRS DEFLECTION < 1.0 mV IN CHEST LEADS] Compared to ECG 07/21/2019 22:46:29 Myocardial infarct finding no longer present Electronically Signed On 07-25-2019 14:09:00 ELECTRICIAN ASSISTANT by Laura Knapp M.D. [id number]
--- NOTE | 2019-07-24 23:24 | XR_ITS ---
WS: [id number] XR chest 1V portable [id number] REASON FOR EXAM: SOB FINDINGS: The cardiac silhouette is enlarged. The cardiothoracic ratio is 20/36. The peripheral lung show no vascular redistribution. No pneumonia, pleural effusion, pulmonary edema, or mass effect. The hilum and apices normal. No osseous abnormalities. XR/XR chest 1V portable [id number] IMPRESSION: Cardiomegaly slightly larger than previous exam exposed November 07, 2017.
[2019-07-24 23:45] LABS: Basophils # 0.1 10^3/uL (0.0-0.1); Basophils % 0.7 %; Eosinophils # 0.3 10^3/uL (0.0-0.8); Hematocrit 42.4 % (42.0-52.0); Hemoglobin 13.5 g/dL (11.7-16.6); Lymphocytes # 2.6 10^3/uL (0.8-4.8); Lymphocytes % 28.6 %; Mean Corpuscular HGB Conc 31.8 g/dL (30.0-36.0); Mean Corpuscular Hemoglobin 25.8 pg (28.0-34.0); Mean Corpuscular Volume 80.9 fL (80-94); Mean Platelet Volume 9.5 fL (7.4-10.4); Monocytes # 0.8 10^3/uL (0.2-0.9); Monocytes % 8.8 %; Neutrophils # 5.2 10^3/uL (1.8-7.7); Neutrophils % 58.6 %; Nucleated Red Blood Cells % 0 %; Platelet Count 346 10^3/cmm (130-400); Red Blood Count 5.24 10^6/uL (4.1-5.3); Red Cell Distribution Width 14.6 % (12.1-15.1)
--- NOTE | 2019-07-24 23:52 | ED_ITS ---
Entered by Kajal Levy, acting as scribe for Jul 24, 2019 22:45 HPI - SOB/Dyspnea General: Chief Complaint: Shortness of Breath/Dyspnea Stated Complaint: sob Time Seen by Provider: 07/24/19 23:53 Source: patient Mode of arrival: ambulatory Limitations: no limitations History of Present Illness: HPI Narrative: 38 yo m came to the er for shortness of breath. Onset was today. Pt states that his room mate told him that he looked like he was having trouble breathing and that he needed to go get checked out. Pt states that he has not been sick any other ways at this time. 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) Timing: intermittent Severity: mild Exacerbating factors: lying flat and exertion Relieving factors: nothing Associated symptoms: Reports no associated symptoms, chest pain and palpitations; Deny abdominal pain, fever(s), nausea or vomiting Review of Systems General: Reports: other (negative unless marked) Const: Denies: fever Eyes: Denies: change in vision ENMT: Denies: throat pain or painful swallowing Card: Reports: chest pain, palpitations and swelling of feet/ankles; Denies: irregular heart rhythm Resp: Reports: shortness of breath GI: Denies: abdominal pain, nausea or vomiting : Denies: flank pain, difficulty urinating or painful urination Musc: Reports: back pain and extremity swelling Skin/Breast: Denies: rash Neuro: Denies: headache or numbness in extremities PFSH ED PFSH: Medical History Binge eating disorder DJD (degenerative joint disease) Gallstones GERD (gastroesophageal reflux disease) GI disease Morbid obesity Nephrolithiasis Nephropathy Posttraumatic stress disorder Tinea cruris Social History Smoking and tobacco status: current every day smoker Physical Exam Const: GENERAL APPEARANCE: well developed ORIENTATION/CONSCIOUSNESS: Yes oriented to person, Yes oriented to place and Yes oriented to time HENMT: COMMON NORMALS: normocephalic, external ears normal and external nose normal HEAD & SCALP: normocephalic; no scalp tenderness FACE & SINUS: normal facial exam NOSE: external nose normal and no nasal discharge EXTERNAL EAR: Yes external ears normal MOUTH: tongue normal TEETH & GINGIVA: no abnormal tooth and associated gingiva THROAT: posterior oropharynx normal; no peritonsillar mass Eye: COMMON NORMALS: PERRL, EOMs intact bilaterally and conjunctivae normal EYELID: eyelids normal CONJUNCTIVA: Yes conjunctivae normal PUPIL: Yes PERRL Chest: COMMONS NORMALS: inspection of chest normal CHEST: No tenderness Resp: COMMON NORMALS: clear to auscultation bilaterally EFFORT & INSPECTION: No tachypneic, No respiratory distress, No retractions, No uses accessory muscles and No tracheal deviation AUSCULTATION: clear to auscultation bilaterally, no rhonchi, no wheezes and lung sounds not diminished Cardio: COMMON NORMALS: regular rate and regular rhythm RATE: regular rate RHYTHM: regular rhythm HEART SOUNDS: no murmurs PERIPHERAL PULSES: radial pulses present GI: INSPECTION: No abdominal distension AUSCULTATION: No hyperactive bowel sounds and No hypoactive bowel sounds PALPATION: No guarding and No rigid PERCUSSION: no dullness to percussion and no tympanic to percussion : COMMON NORMALS: Yes no CVA tenderness BLADDER/KIDNEY EXAM: Yes no CVA tenderness Back/Pelvis: COMMON NORMALS: no CVA tenderness Extremity: GENERAL: Yes edema (+2) Neuro: SENSORIUM/ORIENTATION: Yes oriented to person, Yes oriented to place and Yes oriented to time Psych: COMMON NORMALS: mental status grossly normal Skin: COMMON NORMALS: no rashes or lesions noted GENERAL SKIN EXAM: no rashes or lesions noted Course Vital Signs: Vital signs: Vital Signs Temperature 98.2 F 07/24/19 22:52 Pulse Rate 78 07/25/19 01:30 Respiratory Rate 20 H 07/25/19 01:30 Blood Pressure 147/85 07/25/19 01:30 Pulse Oximetry 96 07/25/19 01:30 MDM - SOB/Dyspnea MDM Narrative: Medical decision making narrative: No ST changes on EKG. His troponin is negative. His chest x-ray is negative. No other lab abnormalities. He does have a history of PSVT. He is in sinus currently without tachycardia he may have had an episode at home sparking his symptoms. Lab Data: Labs: Lab Results 07/24/19 07/24/19 07/24/19 Range/Units 23:40 23:40 23:40 WBC 9.0 (4.0-10.0) 10^3/ uL RBC 5.24 (4.1-5.3) 10^6/u L Hgb 13.5 (11.7-16.6) g/dL Hct 42.4 (42.0-52.0) % MCV 80.9 (80-94) fL MCH 25.8 L (28.0-34.0) pg MCHC 31.8 (30.0-36.0) g/dL RDW 14.6 (12.1-15.1) % Plt Count 346 (130-400) 10^3/c mm MPV 9.5 (7.4-10.4) fL Neut % (Auto) 58.6 % Lymph % (Auto) 28.6 % Dane % (Auto) 8.8 % Eos % (Auto) 3.0 % Baso % (Auto) 0.7 % Neut # (Auto) 5.2 (1.8-7.7) 10^3/u L Lymph # (Auto) 2.6 (0.8-4.8) 10^3/u L Dane # (Auto) 0.8 (0.2-0.9) 10^3/u L Eos # (Auto) 0.3 (0.0-0.8) 10^3/u L Baso # (Auto) 0.1 (0.0-0.1) 10^3/u L Nucleated RBC % (a uto) 0 % Nucleated RBCs # 0.0 /100WBC Sodium 137 (136-145) mmol/L Potassium 3.9 (3.5-5.1) mmol/L Chloride 101 (98-107) mmol/L Carbon Dioxide 25 (22-29) mmol/L Anion Gap 14.9 (5-19) BUN 14 (6-20) mg/dL Creatinine 0.8 (0.7-1.2) mg/dL GFR Calculation 107.6 (90-130) mL/min Glucose 170 H (65-115) mg/dL Calcium 9.9 (8.5-10.5) mg/dL Total Bilirubin 0.4 (0.15-1.2) mg/dL AST 33 (0-40) U/L ALT 64 H (0-41) U/L Alkaline Phosphata se 85 (40-130) IU/L Troponin T Baselin e 6 (0-15) ng/mL Total Protein 7.5 (6.6-8.7) g/dL Albumin 4.2 (3.5-5.2) g/dL Globulin 3.3 (1.3-4.6) g/dL Discharge Plan Discharge Patient Disposition: Home, Self-Care Clinical Impression: Heart palpitations Condition: Stable Prescriptions: No Action Lamictal 25 mg tablet 25 mg PO DAILY RF: 0 Geodon 40 mg capsule 40 mg PO 0700,1700 RF: 0 Aldactazide 50-50 mg Tablet 1 tab PO DAILY RF: 0 metformin 1,000 mg Tablet 1,000 mg PO BID RF: 0 lisinopril 40 mg Tablet 40 mg PO DAILY RF: 0 Dexilant 30 mg Capsule,Biphase Delayed Releas 30 mg PO DAILY RF: 0 aspirin [Aspir-81] 81 mg Tablet,Delayed Release (Dr/Ec) 81 mg PO DAILY RF: 0 Lantus Solostar U-100 Insulin 100 unit/mL (3 mL) Insulin Pen 60 unit SUBCUT BID RF: 0 lamotrigine [Lamictal] 100 mg tablet 100 mg PO DAILY 30 Days Qty: 30 RF: 1 Discharge Orders: Discharge Order (Routine); Ordered 07/25/19 Ordered By: Gallito Branch Referrals: Quita Gutiérrez DO [Family Provider] - Discharge Diet: Advance as tolerated Discharge Activity: Increase activity as tolerated Activity Restrictions/Additional Instructions: Return for repeated episodes of chest pain, significant shortness of breath, fever, other concerning symptoms. Discharge Date/Time: 07/25/19 01:34 Coding Level of Care Code ED Residential Care Officer for Chg Fwd Exam Problem Focused The documentation recorded by the Cam beltran Stephanie Lyn, accurately reflects the service I personally performed and the decisions made by Jose Carlos jenkins Jeremy John, DO Jul 24, 2019 22:45
[2019-07-25 00:03] LABS: Alanine Aminotransferase 64 U/L (0-41); Albumin Level 4.2 g/dL (3.5-5.2); Alkaline Phosphatase 85 IU/L (40-130); Anion Gap 14.9 (5-19); Aspartate Amino Transferase 33 U/L (0-40); Blood Urea Nitrogen 14 mg/dL (6-20); Calcium 9.9 mg/dL (8.5-10.5); Carbon Dioxide 25 mmol/L (22-29); Chloride 101 mmol/L (98-107); Globulin 3.3 g/dL (1.3-4.6); Glomerular Filtration Rate 107.6 mL/min (90-130); Glucose 170 mg/dL (65-115); Potassium 3.9 mmol/L (3.5-5.1); Sodium 137 mmol/L (136-145); Total Bilirubin 0.4 mg/dL (0.15-1.2); Total Protein 7.5 g/dL (6.6-8.7)
[2019-07-25 00:06] LABS: Troponin(5th) Baseline 6 ng/mL (0-15)
[2019-07-25 00:16] VITALS: BP 135/96; PULSE 87; RESP 17; O2SAT 96
[2019-07-25 01:30] VITALS: BP 147/85; PULSE 78; RESP 20; O2SAT 96
== END 2019-07-25 01:34 | disposition home or self-care (01) ==
PROVIDERS: Emergency Provider Emergency Medicine; Family Provider Family Medicine
DX: R00.2 Palpitations (principal); E66.01 Morbid (severe) obesity due to excess calories; F17.200 Nicotine dependence, unspecified, uncomplicated; Z68.44 Body mass index [BMI] 60.0-69.9, adult
CPT/HCPCS: 71045; 80053; 84484; 85025; 93005; 99282; 99283

== ENCOUNTER → 2019-08-05 10:02 | Outpatient (BNVA) | payer MEDICAID, SELFPAY | PROVIDERS: Family Provider Family Medicine; Visit Provider Nurse Practitioner | DX: F31.73 Bipolar disorder, in partial remission, most recent episode manic (principal); F10.21 Alcohol dependence, in remission | CPT/HCPCS: 99214 ==

== ENCOUNTER 2019-08-27 19:50 | Emergency (ER) | payer MEDICAID, SELFPAY ==
[2019-06-09 16:46] VITALS: BP 162/82; BMI 64.6
[2019-08-27 20:03] VITALS: BP 128/99; PULSE 96; RESP 18; TEMP 36.9; O2SAT 96; BMI 63.1
--- NOTE | 2019-08-27 20:06 | W.ED.BACK ---
HPI - Back Pain/Injury General: Chief Complaint: Fall Stated Complaint: lower back/neck pain due to fall Time Seen by Provider: 08/27/19 20:05 Source: patient Mode of arrival: ambulatory Limitations: no limitations History of Present Illness: HPI Narrative: Patient stepped out onto his back porch and it collapsed under his weight. Patient reports some neck discomfort and some low back pain. Patient does exhibit normal range of motion of the back and neck. Patient appears in mild pain. Patient appears well. Patient is morbidly obese and takes routine medications for diabetes and mental health disorder. Review of Systems General: Reports: 10 or more systems reviewed and unremarkable except in HPI and below Musc: Reports: neck pain and back pain PFSH ED PFSH: Medical History (Updated 08/27/19 @ 21:04 by SCOTTY Cuello) Alcohol dependence, in remission Binge eating disorder Bipolar disorder, in partial remission, most recent episode manic DJD (degenerative joint disease) Gallstones GERD (gastroesophageal reflux disease) GI disease Morbid obesity Nephrolithiasis Nephropathy Posttraumatic stress disorder Tinea cruris Social History (Updated 08/05/19 @ 10:23 by Mona Mcfadden LPN) Smoking and tobacco status: current every day smoker cigarettes Smoking risk assessment/counseling performed?: Yes Tobacco counseling given: counseling >3 minutes Physical Exam Const: COMMON NORMALS: no apparent distress and oriented x3 GENERAL APPEARANCE: cooperative HENMT: COMMON NORMALS: normocephalic, external ears normal, EAC's normal, TM's normal bilaterally and external nose normal HEAD & SCALP: normal to inspection and normocephalic FACE & SINUS: normal facial exam NOSE: external nose normal GENERAL EAR: hearing not grossly impaired EXTERNAL EAR: Yes external ears normal EXTERNAL AUDITORY CANAL: EAC's normal TYMPANIC MEMBRANE: TM's normal bilaterally MOUTH: oral and palatal mucosa normal THROAT: posterior oropharynx normal Eye: COMMON NORMALS: PERRL and EOMs intact bilaterally PUPIL: Yes PERRL Neck/C-Spine: COMMON NORMALS: full ROM and no lymphadenopathy CERVICAL SPINE: Yes paracervical muscle tenderness Lymph: LYMPHATIC: no lymphedema noted Chest: COMMONS NORMALS: inspection of chest normal and palpation of chest normal Resp: COMMON NORMALS: normal respiratory effort and clear to auscultation bilaterally AUSCULTATION: clear to auscultation bilaterally Cardio: COMMON NORMALS: regular rate and regular rhythm RATE: regular rate RHYTHM: regular rhythm GI: COMMON NORMALS: normal to inspection, nondistended, normoactive bowel sounds and non-tender : COMMON NORMALS: Yes no CVA tenderness BLADDER/KIDNEY EXAM: Yes no CVA tenderness Back/Pelvis: COMMON NORMALS: no CVA tenderness LUMBAR SPINE/LOWER BACK: Yes paraspinal muscle tenderness Extremity: COMMON NORMALS: normal to inspection GENERAL: No edema Neuro: COMMON NORMALS: oriented x3, moves all extremities and no focal motor deficits Psych: COMMON NORMALS: mental status grossly normal and cooperative Skin: COMMON NORMALS: no rashes or lesions noted GENERAL SKIN EXAM: no rashes or lesions noted Course Vital Signs: Vital signs: Vital Signs Temperature 98.5 F 08/27/19 20:03 Pulse Rate 96 08/27/19 20:03 Respiratory Rate 18 08/27/19 20:03 Blood Pressure 128/99 08/27/19 20:03 Pulse Oximetry 96 08/27/19 20:03 MDM - Back Pain/Injury MDM Narrative: Medical decision making narrative: Patient comes in today for complaints of injury to the back and neck. On exam patient has muscle tenderness of the low back and neck area. Palpable tenderness of the cervical spine and lumbar spine is noted. Patient moves all extremities well. Patient has good range of motion. Skin is warm and dry and color is pink. Respirations are even lungs are clear to auscultation. Differential diagnosis intervertebral disc disease, facet arthropathy, fracture. Radiographic imaging had to be done prior a CT due to patient size. No fracture or injury was noted of the cervical or lumbar area of the spine. Reviewed exam with patient with recommendations for treatment and follow-up. Patient reports understanding agreed to plan. Discharge Plan Discharge Patient Disposition: Home, Self-Care Clinical Impression: Acute lumbar myofascial strain Qualifiers: Encounter type: initial encounter Qualified Code(s): S39.012A - Strain of muscle, fascia and tendon of lower back, initial encounter Acute cervical myofascial strain Qualifiers: Encounter type: initial encounter Qualified Code(s): S16.1XXA - Strain of muscle, fascia and tendon at neck level, initial encounter Condition: Stable Prescriptions: New diclofenac sodium 75 mg tablet,delayed release (DR/EC) 75 mg PO BID Qty: 14 RF: 0 tizanidine 4 mg tablet 4 mg PO Q8H PRN (Reason: muscle spasticity) Qty: 20 RF: 0 No Action Geodon 40 mg capsule 40 mg PO 0700,1700 Qty: 60 RF: 1 lamotrigine [Lamictal] 100 mg tablet 100 mg PO DAILY 30 Days Qty: 30 RF: 1 Aldactazide 50-50 mg Tablet 1 tab PO DAILY RF: 0 metformin 1,000 mg Tablet 1,000 mg PO BID RF: 0 lisinopril 40 mg Tablet 40 mg PO DAILY RF: 0 Dexilant 30 mg Capsule,Biphase Delayed Releas 30 mg PO DAILY RF: 0 aspirin [Aspir-81] 81 mg Tablet,Delayed Release (Dr/Ec) 81 mg PO DAILY RF: 0 Lantus Solostar U-100 Insulin 100 unit/mL (3 mL) Insulin Pen 60 unit SUBCUT BID RF: 0 Referrals: Quita Gutiérrez DO [Family Provider] - Discharge Diet: Usual diet Discharge Activity: Increase activity as tolerated Patient Instructions: Back Pain (ED) Activity Restrictions/Additional Instructions: Activity as tolerated Gentle stretching and range of motion exercise Follow-up with primary care in one week Return to ER for high fever or new concerns Coding Level of Care Code ED Financial Systems Analyst for Christin Fwd Exam Comprehensive
--- NOTE | 2019-08-27 20:21 | CTR_ITS ---
PROCEDURE INFORMATION: Exam: CT Lumbar Spine Without Contrast Exam date and time: 08/27/2019 8:24 PM Age: 38 years old Clinical indication: Injury or trauma; Fall; Initial encounter; Blunt trauma (contusions or hematomas); Additional info: Fall, injury TECHNIQUE: Imaging protocol: Computed tomography images of the lumbar spine without contrast. Total DLP: 1629.42 mGy-cm Radiation optimization: All CT scans at this facility use at least one of these dose optimization techniques: automated exposure control; mA and/or kV adjustment per patient size (includes targeted exams where dose is matched to clinical indication); or iterative reconstruction. COMPARISON: [place] [id number] 08/29/2013 1:32 AM FINDINGS: Vertebrae: No acute fracture. Normal alignment. L1-L2: No disc herniation. No spinal canal stenosis. No neural foraminal narrowing. L2-L3: No disc herniation. No spinal canal stenosis. No neural foraminal narrowing. L3-L4: No disc herniation. No spinal canal stenosis. No neural foraminal narrowing. L4-L5: No disc herniation. No spinal canal stenosis. No neural foraminal narrowing. L5-S1: No disc herniation. No spinal canal stenosis. No neural foraminal narrowing. Soft tissues: Unremarkable. CT/CT lumbar spine wo con* [id number] IMPRESSION: There is no evidence for acute fracture or malalignment. Radiation Dose CTDIVOL = (mGy): DLP = 1629.42 (mGy-cm)
--- NOTE | 2019-08-27 20:21 | CTR_ITS ---
PROCEDURE INFORMATION: Exam: CT Cervical Spine Without Contrast Exam date and time: 08/27/2019 8:24 PM Age: 38 years old Clinical indication: Injury or trauma; Initial encounter; Blunt trauma; Injury details: Fall through porch; Additional info: Fall injury TECHNIQUE: Imaging protocol: Computed tomography images of the cervical spine without contrast. Total DLP: 1165.42 mGy-cm Radiation optimization: All CT scans at this facility use at least one of these dose optimization techniques: automated exposure control; mA and/or kV adjustment per patient size (includes targeted exams where dose is matched to clinical indication); or iterative reconstruction. COMPARISON: No relevant prior studies available. FINDINGS: Vertebrae: No acute fracture. Normal alignment. C2-C3: No disc herniation. No spinal canal stenosis. No neural foraminal narrowing. C3-C4: No disc herniation. No spinal canal stenosis. No neural foraminal narrowing. C4-C5: No disc herniation. No spinal canal stenosis. No neural foraminal narrowing. C5-C6: No disc herniation. No spinal canal stenosis. No neural foraminal narrowing. C6-C7: No disc herniation. No spinal canal stenosis. No neural foraminal narrowing. C7-T1: No disc herniation. No spinal canal stenosis. No neural foraminal narrowing. Soft tissues: Unremarkable. Lungs: Lung apices are normal. CT/CT cervical spin wo con* [id number] IMPRESSION: There is no evidence for fracture or facet dislocation. Radiation Dose CTDIVOL = (mGy): DLP = 1165.42 (mGy-cm)
[2019-08-27] MEDS: HYDROcodone-acetaminophen 10-325 mg Tablet 1 TAB PO (20:28)
[2019-08-27 21:38] VITALS: BP 166/74; PULSE 98; RESP 17; O2SAT 94
== END 2019-08-27 21:39 | disposition home or self-care (01) ==
PROVIDERS: Emergency Provider Nurse Practitioner Family; Family Provider Family Medicine
DX: S39.012A Strain of muscle, fascia and tendon of lower back, initial encounter (principal); S16.1XXA Strain of muscle, fascia and tendon at neck level, initial encounter; E11.9 Type 2 diabetes mellitus without complications; E66.01 Morbid (severe) obesity due to excess calories; Z68.44 Body mass index [BMI] 60.0-69.9, adult; F17.210 Nicotine dependence, cigarettes, uncomplicated; Z79.4 Long term (current) use of insulin
CPT/HCPCS: 12345; 72125; 72131; 99281; 99283

== ENCOUNTER → 2019-08-31 13:49 | Outpatient (BNVA) | payer MEDICAID, SELFPAY | PROVIDERS: Family Provider Family Medicine; Visit Provider Counselor Mental Health | DX: F31.73 Bipolar disorder, in partial remission, most recent episode manic (principal); F50.81 Binge eating disorder | CPT/HCPCS: 90834 ==

== ENCOUNTER → 2019-09-07 15:47 | Outpatient (BNVA) | payer MEDICAID, SELFPAY | PROVIDERS: Family Provider Family Medicine; Visit Provider Counselor Mental Health | DX: F31.73 Bipolar disorder, in partial remission, most recent episode manic (principal); F43.10 Post-traumatic stress disorder, unspecified; F50.81 Binge eating disorder | CPT/HCPCS: 90832 ==

== ENCOUNTER → 2019-09-14 13:29 | Outpatient (BNVA) | payer MEDICAID, SELFPAY | PROVIDERS: Family Provider Family Medicine; Visit Provider Counselor Mental Health | DX: F31.73 Bipolar disorder, in partial remission, most recent episode manic (principal); F43.10 Post-traumatic stress disorder, unspecified; F50.81 Binge eating disorder; F32.9 Major depressive disorder, single episode, unspecified; E66.01 Morbid (severe) obesity due to excess calories | CPT/HCPCS: 90832 ==

== ENCOUNTER 2019-09-14 20:26 | Emergency (ER) | payer MEDICAID, SELFPAY ==
[2019-06-09 16:46] VITALS: BP 162/82; BMI 64.6
[2019-09-14 20:43] VITALS: BP 183/133; PULSE 105; RESP 18; TEMP 36.5; O2SAT 97; BMI 64.5
--- NOTE | 2019-09-14 20:48 | ED_ITS ---
HPI - Extremity Problem General: Chief complaint: Extremity Injury, Upper Stated complaint: right hand pain Time Seen by Provider: 09/14/19 20:45 Source: patient Mode of arrival: ambulatory Limitations: no limitations History of Present Illness: HPI Narrative: Patient comes in for evaluation of his right hand. Patient reports becoming upset and striking the wall with his hand. Patient appears well. Patient appears in no acute distress. No obvious deformity is noted to the hand. Minimal swelling is noted. Review of Systems General: Reports: 10 or more systems reviewed and unremarkable except in HPI and below Musc: Reports: extremity pain PFSH ED PFSH: Medical History (Updated 09/14/19 @ 21:11 by SCOTTY Cuello) Alcohol dependence, in remission Binge eating disorder Bipolar disorder, in partial remission, most recent episode manic DJD (degenerative joint disease) Gallstones GERD (gastroesophageal reflux disease) GI disease Morbid obesity Nephrolithiasis Nephropathy Posttraumatic stress disorder Tinea cruris Social History (Updated 08/05/19 @ 10:23 by Mona Mcfadden LPN) Smoking and tobacco status: light tobacco smoker cigarettes Smoking risk assessment/counseling performed?: Yes Tobacco counseling given: counseling >3 minutes Physical Exam Const: COMMON NORMALS: no apparent distress and oriented x3 GENERAL APPEARANCE: cooperative HENMT: COMMON NORMALS: normocephalic, TM's normal bilaterally and external nose normal HEAD & SCALP: normal to inspection and normocephalic NOSE: external nose normal TYMPANIC MEMBRANE: TM's normal bilaterally MOUTH: oral and palatal mucosa normal THROAT: posterior oropharynx normal Eye: GENERAL EYE: normal appearance of both eyes Neck/C-Spine: COMMON NORMALS: full ROM Lymph: LYMPHATIC: no lymphadenopathy noted Chest: COMMONS NORMALS: inspection of chest normal Resp: COMMON NORMALS: normal respiratory effort EFFORT & INSPECTION: Yes able to speak in complete sentences Cardio: COMMON NORMALS: regular rate and regular rhythm RATE: regular rate RHYTHM: regular rhythm GI: COMMON NORMALS: non-tender : COMMON NORMALS: Yes no CVA tenderness BLADDER/KIDNEY EXAM: Yes no CVA tenderness Back/Pelvis: COMMON NORMALS: no CVA tenderness and thoracic and lumbar spine normal to inspection Extremity: NARRATIVE EXTREMITY EXAM: Some abrasions are noted to the right knuckles that are healing. Some mild tenderness and swelling is noted to the dorsal hand. Normal range of motion of the hand is noted. Normal cap refill is noted. Neuro: COMMON NORMALS: oriented x3 and moves all extremities Psych: COMMON NORMALS: mental status grossly normal and cooperative Skin: COMMON NORMALS: no rashes or lesions noted GENERAL SKIN EXAM: no rashes or lesions noted Course Vital Signs: Vital signs: Vital Signs Temperature 97.7 F 09/14/19 20:43 Pulse Rate 105 H 09/14/19 20:43 Respiratory Rate 18 09/14/19 20:43 Blood Pressure 183/133 09/14/19 20:43 Pulse Oximetry 97 09/14/19 20:43 MDM - Extremity (Nontraumatic) MDM Narrative: Medical decision making narrative: Patient comes in today for complaints of injury to the right hand. Patient struck a wall earlier today and has pain to the dorsal hand. Exam notes normal range of motion of the hand. Distal cap refill is noted normal. Normal range of motion is noted. Vital signs are normal, except for elevated blood pressure. Differential diagnosis included but not limited to fracture, sprain, contusion. X-ray noted no fracture. Suspect just a contusion. Recommend patient conservatively treat and follow-up as needed. Patient reports understanding. Discharge Plan Discharge Patient Disposition: Home, Self-Care Clinical Impression: Contusion of hand Qualifiers: Encounter type: initial encounter Laterality: right Qualified Code(s): S60.221A - Contusion of right hand, initial encounter Condition: Stable Prescriptions: No Action Geodon 40 mg capsule 40 mg PO 0700,1700 Qty: 60 RF: 1 lamotrigine [Lamictal] 100 mg tablet 100 mg PO DAILY 30 Days Qty: 30 RF: 1 diclofenac sodium 75 mg tablet,delayed release (DR/EC) 75 mg PO BID Qty: 14 RF: 0 tizanidine 4 mg tablet 4 mg PO Q8H PRN (Reason: muscle spasticity) Qty: 20 RF: 0 Aldactazide 50-50 mg Tablet 1 tab PO DAILY RF: 0 metformin 1,000 mg Tablet 1,000 mg PO BID RF: 0 lisinopril 40 mg Tablet 40 mg PO DAILY RF: 0 Dexilant 30 mg Capsule,Biphase Delayed Releas 30 mg PO DAILY RF: 0 aspirin [Aspir-81] 81 mg Tablet,Delayed Release (Dr/Ec) 81 mg PO DAILY RF: 0 Lantus Solostar U-100 Insulin 100 unit/mL (3 mL) Insulin Pen 60 unit SUBCUT BID RF: 0 Referrals: Quita Gutiérrez DO [Family Provider] - Discharge Diet: Usual diet Patient Instructions: Contusion in Adults (ED) Activity Restrictions/Additional Instructions: Activity as tolerated Acetaminophen or ibuprofen for pain Ice or heat to the area Follow-up with primary care in one week Return to ER as needed Coding Level of Care Code ED Prototype Machinist for Christin Fwd Exam Comprehensive
--- NOTE | 2019-09-14 20:48 | XR_ITS ---
WS: [id number] RIGHT HAND: 3 VIEW(S) TECHNIQUE: PA, oblique and lateral. HISTORY: injury COMPARISON: 07/18/2019 No acute fracture or dislocation. Mild soft tissue swelling over the dorsal hand at the level of the metacarpal heads. No fracture iden tified. XR/XR hand RT min 3V* [id number] IMPRESSION: Soft tissue edema. No fracture.
[2019-09-14 21:39] VITALS: BP 163/127; PULSE 107; RESP 18; O2SAT 96
== END 2019-09-14 21:39 | disposition home or self-care (01) ==
PROVIDERS: Emergency Provider Nurse Practitioner Family; Family Provider Family Medicine
DX: S60.221A Contusion of right hand, initial encounter (principal); M79.641 Pain in right hand; W22.8XXA Striking against or struck by other objects, initial encounter; E66.01 Morbid (severe) obesity due to excess calories; Z68.44 Body mass index [BMI] 60.0-69.9, adult; F43.10 Post-traumatic stress disorder, unspecified; F60.89 Other specific personality disorders; F50.81 Binge eating disorder; F17.210 Nicotine dependence, cigarettes, uncomplicated
CPT/HCPCS: 12345; 73130; 99281; 99282

== ENCOUNTER → 2019-09-15 07:41 | Outpatient (BNVA) | payer MEDICAID, SELFPAY | PROVIDERS: Family Provider Family Medicine; Visit Provider Nurse Practitioner | DX: F31.73 Bipolar disorder, in partial remission, most recent episode manic (principal); F10.21 Alcohol dependence, in remission; F41.1 Generalized anxiety disorder | CPT/HCPCS: 99213 ==

== ENCOUNTER → 2019-09-21 08:22 | Outpatient (BNVA) | payer MEDICAID, SELFPAY | PROVIDERS: Family Provider Family Medicine; Visit Provider Counselor Mental Health | DX: F43.11 Post-traumatic stress disorder, acute (principal); F31.73 Bipolar disorder, in partial remission, most recent episode manic; F10.21 Alcohol dependence, in remission; F32.9 Major depressive disorder, single episode, unspecified; M79.641 Pain in right hand; R60.9 Edema, unspecified | CPT/HCPCS: 90832; 73130 ==

== ENCOUNTER 2019-09-25 20:43 | Emergency (ER) | payer MEDICAID, SELFPAY ==
[2019-06-09 16:46] VITALS: BP 162/82; BMI 64.6
[2019-09-25] VITALS (19 sets, daily range): BP systolic 147–187; BP diastolic 95–145; PULSE 116; RESP 24; O2SAT 96–99; BMI 65.9
[2019-09-25] MEDS: HYDROmorphone 1 mg/mL INJ 1 mL 1.5 MG IVP (20:59)
[2019-09-25] MEDS: lactated ringers 1,000 ML 250 ML IV (20:59)
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
== END 2019-09-25 22:15 ==
LOC: ER 21:58
PROVIDERS: Emergency Provider Emergency Medicine; Family Provider Family Medicine; PCP Family Medicine
DX: T21.31XA Burn of third degree of chest wall, initial encounter (principal); T20.20XA Burn of second degree of head, face, and neck, unspecified site, initial encounter; T20.27XA Burn of second degree of neck, initial encounter; T21.22XA Burn of second degree of abdominal wall, initial encounter; T23.102A Burn of first degree of left hand, unspecified site, initial encounter; T23.101A Burn of first degree of right hand, unspecified site, initial encounter; T23.222A Burn of second degree of single left finger (nail) except thumb, initial encounter; X76.XXXA Intentional self-harm by smoke, fire and flames, initial encounter; F17.210 Nicotine dependence, cigarettes, uncomplicated
CPT/HCPCS: 12345; 96374; 99283; J1170

== ENCOUNTER → 2019-10-05 08:40 | Outpatient (BNVA) | payer MEDICAID, SELFPAY | PROVIDERS: Family Provider Family Medicine; PCP Family Medicine; Visit Provider Counselor Mental Health | DX: F10.21 Alcohol dependence, in remission (principal); F31.73 Bipolar disorder, in partial remission, most recent episode manic; F43.10 Post-traumatic stress disorder, unspecified; F32.9 Major depressive disorder, single episode, unspecified | CPT/HCPCS: 90834 ==

== ENCOUNTER → 2019-10-12 08:41 | Outpatient (BNVA) | payer MEDICAID, SELFPAY | PROVIDERS: Family Provider Family Medicine; PCP Family Medicine; Visit Provider Counselor Mental Health | DX: F31.73 Bipolar disorder, in partial remission, most recent episode manic (principal); F43.12 Post-traumatic stress disorder, chronic; F32.9 Major depressive disorder, single episode, unspecified | CPT/HCPCS: 90832 ==

== ENCOUNTER 2019-10-20 19:44 | Emergency (ER) | payer MEDICAID, SELFPAY ==
[2019-10-12 15:15] VITALS: BP 162/82; BMI 64.6
[2019-10-20 19:48] VITALS: BP 158/92; PULSE 79; RESP 18; TEMP 36.6; O2SAT 95; BMI 64.1
--- NOTE | 2019-10-20 21:32 | ED_ITS ---
HPI - Extremity Problem General: Chief complaint: Extremity Injury, Upper Stated complaint: blisters on hand Time Seen by Provider: 10/20/19 21:27 Source: patient Mode of arrival: ambulatory Limitations: no limitations History of Present Illness: HPI Narrative: 39-year-old male states he noticed couple blisters on his left hand today. He denies any new injury. He states they are not painful nature. Patient is unsure how he got them. He denies any worsening or improving factors. Associated symptoms: Deny chest pain, fever(s) or rash Review of Systems Const: Denies: fever(s), chills, body aches or change in appetite Eyes: Denies: blurry vision or eye discomfort ENMT: Denies: throat pain or dental pain Card: Denies: chest pain Resp: Denies: dyspnea GI: Denies: abdominal pain, nausea, vomiting or diarrhea : Denies: dysuria Musc: Denies: neck pain or back pain Skin/Breast: Denies: rash Neuro: Denies: headache(s) Psych: Denies: depression Carl/Lymph: Denies: easy bruising All/Imm: Denies: urticaria PFSH ED PFSH: Medical History (Updated 10/20/19 @ 21:33 by Nancy Vance MD) Alcohol dependence, in remission Benign essential HTN Binge eating disorder Bipolar disorder, in partial remission, most recent episode manic DJD (degenerative joint disease) Dyspnea on exertion Gallstones GERD (gastroesophageal reflux disease) GI disease Morbid obesity Morbid obesity Nephrolithiasis Nephropathy Obstructive sleep apnea Posttraumatic stress disorder Supraventricular tachycardia Tinea cruris Surgical History (System 10/05/19 @ 13:18 by Chayito Rodriguez) H/O oral surgery S/P adenoidectomy S/P cholecystectomy S/P hernia repair S/P knee surgery S/P myringotomy with insertion of tube S/P tendon repair S/P vasectomy Social History (System 10/05/19 @ 13:18 by Chayito Rodriguez) Smoking and tobacco status: current every day smoker cigarettes Smoking risk assessment/counseling performed?: Yes Tobacco counseling given: counseling >3 minutes Physical Exam Const: COMMON NORMALS: no acute distress, patient oriented x3 and healthy appearing HENMT: COMMON NORMALS: normocephalic and atraumatic HEAD & SCALP: normocephalic and atraumatic Eye: COMMON NORMALS: Equal, round and reactive pupils present and EOMs intact bilaterally PUPIL: Yes Equal, round and reactive pupils present Neck/C-Spine: COMMON NORMALS: full ROM and supple Chest: COMMONS NORMALS: normal inspection of the chest and normal palpation of entire chest wall Resp: COMMON NORMALS: normal respiratory effort, No retractions, No use of accessory muscles and clear to auscultation bilaterally AUSCULTATION: clear to auscultation bilaterally Cardio: COMMON NORMALS: regular rate, regular rhythm and No murmurs present (Cardio) RATE: regular rate RHYTHM: regular rhythm GI: COMMON NORMALS: Normal to inspection, nondistended, normoactive bowel sounds present, Soft to palpation, non-tender and no masses PALPATION: Yes Soft to palpation Extremity: COMMON NORMALS: normal to inspection and full ROM Neuro: COMMON NORMALS: patient oriented x3, moves all extremities and no focal motor deficits Psych: COMMON NORMALS: mental status grossly normal, Normal thought process present and cooperative THOUGHT PROCESS: Normal thought process present Skin: COMMON NORMALS: no rashes or lesions noted and no wounds NARRATIVE SKIN EXAM: 2 small blisters to left hand GENERAL SKIN EXAM: no rashes or lesions noted Course Vital Signs: Vital signs: Vital Signs Temperature 97.9 F 10/20/19 19:48 Pulse Rate 79 10/20/19 19:48 Respiratory Rate 18 10/20/19 19:48 Blood Pressure 158/92 10/20/19 19:48 Pulse Oximetry 95 10/20/19 19:48 MDM - Extremity (Nontraumatic) MDM Narrative: Medical decision making narrative: Patient presents with 2 blisters is likely due to an injury. He has no signs of secondary syphilis. Informed patient to follow-up with his primary care doctor in 3 to 5 days and return if it is worsening. He understands and agrees to plan. Discharge Plan Discharge Patient Disposition: Home, Self-Care Clinical Impression: Blister (nonthermal) of left hand, initial encounter Condition: Stable Prescriptions: No Action Geodon 40 mg capsule 40 mg PO 0700,1700 Qty: 60 RF: 1 lamotrigine [Lamictal] 100 mg tablet 100 mg PO DAILY 30 Days Qty: 30 RF: 1 digoxin 125 mcg (0.125 mg) tablet 125 mcg PO DAILY RF: 0 diclofenac sodium 75 mg tablet,delayed release (DR/EC) 75 mg PO BID Qty: 14 RF: 0 metformin 1,000 mg Tablet 1,000 mg PO BID RF: 0 lisinopril 40 mg Tablet 40 mg PO DAILY RF: 0 Dexilant 30 mg Capsule,Biphase Delayed Releas 30 mg PO DAILY RF: 0 aspirin [Aspir-81] 81 mg Tablet,Delayed Release (Dr/Ec) 81 mg PO DAILY RF: 0 Lantus Solostar U-100 Insulin 100 unit/mL (3 mL) Insulin Pen 60 unit SUBCUT BID RF: 0 Discharge Orders: Discharge Order (Routine); Ordered 10/20/19 Ordered By: Nancy Vance Discharge Diet: Advance as tolerated Discharge Activity: Resume usual activity Patient Instructions: Blister (ED) Coding Level of Care Code ED Time Study Clerk for Christin Chang
[2019-10-20 22:21] VITALS: PULSE 86; RESP 18; O2SAT 98
== END 2019-10-20 22:21 | disposition home or self-care (01) ==
PROVIDERS: Emergency Provider Emergency Medicine
DX: S60.522A Blister (nonthermal) of left hand, initial encounter (principal); X58.XXXA Exposure to other specified factors, initial encounter; Z79.4 Long term (current) use of insulin; Z79.82 Long term (current) use of aspirin; I10 Essential (primary) hypertension; K21.9 Gastro-esophageal reflux disease without esophagitis; F17.210 Nicotine dependence, cigarettes, uncomplicated
CPT/HCPCS: 12345; 99281

== ENCOUNTER → 2019-10-22 08:03 | Outpatient (BNVA) | payer MEDICAID, SELFPAY ==
[2019-10-12 15:15] VITALS: BP 162/82; BMI 64.6
== END ==
PROVIDERS: Visit Provider Counselor Mental Health
DX: F31.73 Bipolar disorder, in partial remission, most recent episode manic (principal)
CPT/HCPCS: 90832

== ENCOUNTER 2019-11-09 20:00 | Outpatient (CLI) | payer MEDICAID, SELFPAY ==
[2019-10-12 15:15] VITALS: BP 162/82; BMI 64.6
== END 2019-11-09 20:01 | disposition home or self-care (01) ==
LOC: SLEEP 11-10 10:39
PROVIDERS: Visit Provider Nurse Practitioner Family
DX: G47.30 Sleep apnea, unspecified (principal); R40.0 Somnolence
CPT/HCPCS: 95811

== ENCOUNTER → 2019-11-13 07:59 | Outpatient (BNVA) | payer MEDICAID, SELFPAY ==
[2019-10-12 15:15] VITALS: BP 162/82; BMI 64.6
== END ==
PROVIDERS: Visit Provider Counselor Mental Health
DX: F31.73 Bipolar disorder, in partial remission, most recent episode manic (principal); F43.10 Post-traumatic stress disorder, unspecified; F32.9 Major depressive disorder, single episode, unspecified
CPT/HCPCS: 90832

== ENCOUNTER → 2019-11-20 08:01 | Outpatient (BNVA) | payer MEDICAID, SELFPAY ==
[2019-10-12 15:15] VITALS: BP 162/82; BMI 64.6
== END ==
PROVIDERS: Visit Provider Counselor Mental Health
DX: F31.73 Bipolar disorder, in partial remission, most recent episode manic (principal); F43.10 Post-traumatic stress disorder, unspecified; F32.9 Major depressive disorder, single episode, unspecified
CPT/HCPCS: 90832

== ENCOUNTER → 2019-11-27 08:11 | Outpatient (BNVA) | payer MEDICAID, SELFPAY ==
[2019-10-12 15:15] VITALS: BP 162/82; BMI 64.6
== END ==
PROVIDERS: Visit Provider Counselor Mental Health
DX: F31.73 Bipolar disorder, in partial remission, most recent episode manic (principal); F43.10 Post-traumatic stress disorder, unspecified
CPT/HCPCS: 90832

== ENCOUNTER → 2019-12-03 08:18 | Outpatient (BNVA) | payer MEDICAID, SELFPAY ==
[2019-10-12 15:15] VITALS: BP 162/82; BMI 64.6
== END ==
PROVIDERS: Visit Provider Counselor Mental Health
DX: F31.73 Bipolar disorder, in partial remission, most recent episode manic (principal); F43.10 Post-traumatic stress disorder, unspecified; F32.9 Major depressive disorder, single episode, unspecified
CPT/HCPCS: 90832

== ENCOUNTER → 2019-12-11 10:10 | Outpatient (BNVA) | payer MEDICAID, SELFPAY ==
[2019-10-12 15:15] VITALS: BP 162/82; BMI 64.6
== END ==
PROVIDERS: Visit Provider Counselor Mental Health
DX: F31.73 Bipolar disorder, in partial remission, most recent episode manic (principal); F43.10 Post-traumatic stress disorder, unspecified; F32.9 Major depressive disorder, single episode, unspecified
CPT/HCPCS: 90834

== ENCOUNTER → 2019-12-25 08:14 | Outpatient (BNVA) | payer MEDICAID, SELFPAY ==
[2019-10-12 15:15] VITALS: BP 162/82; BMI 64.6
== END ==
PROVIDERS: Visit Provider Counselor Mental Health
DX: F31.73 Bipolar disorder, in partial remission, most recent episode manic (principal); F43.10 Post-traumatic stress disorder, unspecified; F32.9 Major depressive disorder, single episode, unspecified
CPT/HCPCS: 90832

== ENCOUNTER 2019-12-27 15:56 | Emergency (ER) | payer MEDICAID, SELFPAY ==
[2019-10-12 15:15] VITALS: BP 162/82; BMI 64.6
[2019-12-27 15:59] VITALS: BP 149/72; PULSE 89; RESP 14; TEMP 36.9; O2SAT 99; BMI 64.5
--- NOTE | 2019-12-27 17:33 | XRR_ITS ---
PROCEDURE INFORMATION: Exam: XR Chest, 1 View Exam date and time: 12/27/2019 6:06 PM Age: 39 years old Clinical indication: Left-sided chest pain; Prior surgery; Surgery type: Gb, hernia TECHNIQUE: Imaging protocol: XR of the chest Views: 1 view. COMPARISON: AR XR chest 1V portable [id number] 07/25/2019 1:08 AM FINDINGS: Lungs: Lungs are well aerated without a focal area of consolidation. Pleural space: Unremarkable. No pleural effusion. No pneumothorax. Heart/Mediastinum: The cardiac silhouette appears enlarged, some of which is magnification related to the AP projection. Bones/joints: Unremarkable. XR/XR chest 1V portable [id number] IMPRESSION: Lungs are well aerated without a focal area of consolidation.
--- NOTE | 2019-12-27 17:33 | ECG_ITS ---
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 Measurements Intervals [place] Rate: 86 P: 52 UT: 215 QRS: 35 QRSD: 88 T: 16 QT: 331 QTc: 397 Interpretive Statements SINUS RHYTHM WITH FIRST DEGREE AV BLOCK LOW QRS VOLTAGE IN PRECORDIAL LEADS [QRS DEFLECTION < 1.0 mV IN CHEST LEADS] Compared to ECG 07/24/2019 22:59:39 First degree AV block now present Electronically Signed On 12-28-2019 21:29:52 CDT by Laura Knapp M.D. [id number]
[2019-12-27 17:56] VITALS: BP 130/67; PULSE 77; RESP 18; O2SAT 98
--- NOTE | 2019-12-27 18:01 | W.ED.CHESTPA ---
HPI - Chest Pain General: Chief Complaint: Chest Pain Stated Complaint: CHEST PAIN Time Seen by Provider: 12/27/19 17:33 Source: patient Mode of arrival: ambulatory Limitations: no limitations History of Present Illness: HPI narrative: Patient is a 39-year-old male who presents to ED today with a complaint of intermittent chest pains that have been present over the past 3 days. Patient tells me pain seems to come on at rest. He has not found any aggravating factors to his discomfort. He states pain will last between 1-1.5 hours and then subside on its own. He will then have several hours of being completely asymptomatic. Patient denies shortness of breath, difficulty breathing, cough. He denies fever/chills. His pain does not seem to be positional or exertional. Currently he is rating his pain at a 2/10. Patient tells me he has a history of PSVT, HTN, elevated cholesterol, cardiomegaly. Last stress test on file was performed in 2012 and was normal. MD complaint: chest pain Onset (ago): day(s) Timing of current episode: episodic Prior episodes: Yes Onset: during rest Pain location: substernal and left chest Relieving factors: nothing Exacerbating factors: nothing Associated symptoms: Deny abdominal pain, dyspnea, fever(s), nausea, palpitations, syncope or vomiting Treatment prior to arrival: none Risk Factors: Coronary artery disease risk factors: smoking history, hyperlipidemia and hypertension Review of Systems Const: Denies: fever(s), chills or body aches Eyes: Denies: change in vision, blurry vision, photophobia, floaters or seeing flashes Card: Reports: chest pain; Denies: palpitations, irregular heart rhythm, edema, swelling of feet/ankles, lightheadedness, syncope, pre-syncope, dyspnea on exertion, orthopnea or leg pain with exertion Resp: Denies: dyspnea, productive cough, change in phlegm color, hemoptysis or chest congestion GI: Denies: abdominal pain, nausea, vomiting or diarrhea : Denies: flank pain, difficulty urinating, dysuria, urinary frequency or urinary urgency Musc: Denies: neck pain or back pain Skin/Breast: Denies: rash Neuro: Denies: headache(s) PFS ED PFSH: Medical History (Updated 12/27/19 @ 20:03 by BILLIE Willett) Alcohol dependence, in remission Benign essential HTN Binge eating disorder Bipolar disorder, in partial remission, most recent episode manic DJD (degenerative joint disease) Dyspnea on exertion Gallstones GERD (gastroesophageal reflux disease) GI disease Morbid obesity Morbid obesity Nephrolithiasis Nephropathy Obstructive sleep apnea Posttraumatic stress disorder Supraventricular tachycardia Tinea cruris Surgical History (System 10/05/19 @ 13:18 by Chayito Rodriguez) H/O oral surgery S/P adenoidectomy S/P cholecystectomy S/P hernia repair S/P knee surgery S/P myringotomy with insertion of tube S/P tendon repair S/P vasectomy Social History (System 10/05/19 @ 13:18 by Chayito Rodriguez) Smoking and tobacco status: current every day smoker cigarettes Smoking risk assessment/counseling performed?: Yes Tobacco counseling given: counseling >3 minutes Physical Exam Const: COMMON NORMALS: no acute distress, patient oriented x3, no limitations and alert NUTRITIONAL APPEARANCE: obese (BMI of over 64) morbidly obese ORIENTATION/CONSCIOUSNESS: Yes oriented to person, Yes oriented to place and Yes oriented to time HENMT: COMMON NORMALS: normocephalic and atraumatic HEAD & SCALP: normocephalic and atraumatic Chest: COMMONS NORMALS: normal inspection of the chest OTHER: TTP L sternal border Resp: COMMON NORMALS: normal respiratory effort and clear to auscultation bilaterally AUSCULTATION: clear to auscultation bilaterally Cardio: COMMON NORMALS: regular rate and regular rhythm RATE: regular rate RHYTHM: regular rhythm GI: COMMON NORMALS: Normal to inspection, nondistended, normoactive bowel sounds present, Soft to palpation, non-tender, No hepatosplenomegaly present and no masses PALPATION: Yes Soft to palpation and Yes No hepatosplenomegaly present Extremity: COMMON NORMALS: normal to inspection GENERAL: Yes normal exam except as noted Neuro: COMMON NORMALS: patient oriented x3 SENSORIUM/ORIENTATION: Yes alert, Yes oriented to person, Yes oriented to place and Yes oriented to time Skin: COMMON NORMALS: no rashes or lesions noted GENERAL SKIN EXAM: no rashes or lesions noted Course Vital Signs: Vital signs: Vital Signs Temperature 98.5 F 12/27/19 15:59 Pulse Rate 77 12/27/19 17:56 Respiratory Rate 18 12/27/19 17:56 Blood Pressure 130/67 12/27/19 17:56 Pulse Oximetry 98 12/27/19 17:56 MDM - Chest Pain MDM Narrative: Medical decision making narrative: Patient clinically appears well. He currently is in no acute distress. Initial and repeat EKG showing no acute changes. Initial troponin is normal at 7. There is no need for a second troponin as patient has had intermittent symptoms for 3 days now. His HEART is 2. Patient has mildly elevated liver enzymes. These actually appear lower than his baseline. He does have a history of fatty liver and previous alcohol abuse. Glucose at 330. Patient tells me he has been taking his diabetic medications as prescribed. He needs to follow-up with PCP for this. He has no signs or symptoms of DKA. BUN/Cr mildly elevated at 25/1.4. Urine is dark on exam. Patient tells me he has not been drinking very much water. He was given a liter of fluids here and recommend continuing fluids at home. Again he needs to follow-up with PCP and have these repeated in approximately a week. Will go ahead and schedule patient for an outpatient stress test. Lab Data: Labs: Lab Results 12/27/19 12/27/19 12/27/19 Range/Units 18:00 18:00 18:00 WBC 11.8 H (4.0-10.0) 10^3/ uL RBC 4.40 (4.1-5.3) 10^6/u L Hgb 11.7 (11.7-16.6) g/dL Hct 36.5 L (42.0-52.0) % MCV 83.0 (80-94) fL MCH 26.6 L (28.0-34.0) pg MCHC 32.1 (30.0-36.0) g/dL RDW 13.6 (12.1-15.1) % Plt Count 297 (130-400) 10^3/c mm MPV 10.2 (7.4-10.4) fL Neut % (Auto) 63.8 % Lymph % (Auto) 24.8 % [place] % (Auto) 9.0 % Eos % (Auto) 1.3 % Baso % (Auto) 0.7 % Neut # (Auto) 7.56 (1.8-7.7) 10^3/u L Lymph # (Auto) 2.9 (0.8-4.8) 10^3/u L [place] # (Auto) 1.1 H (0.2-0.9) 10^3/u L Eos # (Auto) 0.2 (0.0-0.8) 10^3/u L Baso # (Auto) 0.1 (0.0-0.1) 10^3/u L Nucleated RBC % (a uto) 0 % Nucleated RBCs # 0.0 /100WBC Sodium 131 L (136-145) mmol/L Potassium 5.0 (3.5-5.1) mmol/L Chloride 94 L (98-107) mmol/L Carbon Dioxide 24 (22-29) mmol/L Anion Gap 18.0 (5-19) BUN 25 H (6-20) mg/dL Creatinine 1.4 H (0.7-1.2) mg/dL GFR Calculation 56.1 L (90-130) mL/min Glucose 330 H (65-115) mg/dL Calculated Osmolal ity 282 L (285-295) mOsm/k g Calcium 10.3 (8.5-10.5) mg/dL Total Bilirubin 0.5 (0.15-1.2) mg/dL AST 45 H (0-40) U/L ALT 79 H (0-41) U/L Alkaline Phosphata se 85 (40-130) IU/L Troponin T Baselin e 7 (0-15) ng/L Total Protein 7.3 (6.6-8.7) g/dL Albumin 4.7 (3.5-5.2) g/dL Globulin 2.6 (1.3-4.6) g/dL Digoxin (0.6-1.2) ng/mL 12/27/19 Range/Units 18:58 WBC (4.0-10.0) 10^3/ uL RBC (4.1-5.3) 10^6/u L Hgb (11.7-16.6) g/dL Hct (42.0-52.0) % MCV (80-94) fL MCH (28.0-34.0) pg MCHC (30.0-36.0) g/dL RDW (12.1-15.1) % Plt Count (130-400) 10^3/c mm MPV (7.4-10.4) fL Neut % (Auto) % Lymph % (Auto) % [place] % (Auto) % Eos % (Auto) % Baso % (Auto) % Neut # (Auto) (1.8-7.7) 10^3/u L Lymph # (Auto) (0.8-4.8) 10^3/u L [place] # (Auto) (0.2-0.9) 10^3/u L Eos # (Auto) (0.0-0.8) 10^3/u L Baso # (Auto) (0.0-0.1) 10^3/u L Nucleated RBC % (a uto) % Nucleated RBCs # /100WBC Sodium (136-145) mmol/L Potassium (3.5-5.1) mmol/L Chloride (98-107) mmol/L Carbon Dioxide (22-29) mmol/L Anion Gap (5-19) BUN (6-20) mg/dL Creatinine (0.7-1.2) mg/dL GFR Calculation (90-130) mL/min Glucose (65-115) mg/dL Calculated Osmolal ity (285-295) mOsm/k g Calcium (8.5-10.5) mg/dL Total Bilirubin (0.15-1.2) mg/dL AST (0-40) U/L ALT (0-41) U/L Alkaline Phosphata se (40-130) IU/L Troponin T Baselin e (0-15) ng/L Total Protein (6.6-8.7) g/dL Albumin (3.5-5.2) g/dL Globulin (1.3-4.6) g/dL Digoxin 1.1 (0.6-1.2) ng/mL EKG Data^: EKG 1: EKG interpretation date: 12/27/19 EKG interpretation time: 16:03 Interpretation: Normal sinus rhythm with first-degree AV block Rate [address] elevation or depression changes noted Discharge Plan Discharge Patient Disposition: Home Clinical Impression: Non-cardiac chest pain, Mild renal insufficiency, Elevated LFTs Condition: Stable Prescriptions: No Action Geodon 40 mg capsule 40 mg PO 0700,1700 Qty: 60 RF: 1 lamotrigine [Lamictal] 100 mg tablet 100 mg PO DAILY 30 Days Qty: 30 RF: 1 digoxin 125 mcg (0.125 mg) tablet 125 mcg PO DAILY RF: 0 Lantus Solostar U-100 Insulin 100 unit/mL (3 mL) insulin pen 60 unit SUBCUT BID Qty: 15 RF: 0 diclofenac sodium 75 mg tablet,delayed release (DR/EC) 75 mg PO BID Qty: 14 RF: 0 metformin 1,000 mg Tablet 1,000 mg PO BID RF: 0 lisinopril 40 mg Tablet 40 mg PO DAILY RF: 0 Dexilant 30 mg Capsule,Biphase Delayed Releas 30 mg PO DAILY RF: 0 aspirin [Aspir-81] 81 mg Tablet,Delayed Release (Dr/Ec) 81 mg PO DAILY RF: 0 Discharge Orders: Discharge Order (Routine); Ordered 12/27/19 Ordered By: Stephanie Brewer Activity Restrictions/Additional Instructions: As discussed case management should contact you to set you up with your outpatient stress test. We spoke about your glucose being elevated and your kidney labs being mildly elevated. Continue to drink plenty of fluids. These labs can be rechecked through primary care in approximately a week. Return to the emergency department for worsening chest pain, shortness of breath, fevers, difficulty breathing, any other concerns you may have. Coding Level of Care Code ED Cutting Machine Tender Decorative for Christin Chang Exam Comprehensive
[2019-12-27 18:12] LABS: Basophils # 0.1 10^3/uL (0.0-0.1); Basophils % 0.7 %; Eosinophils # 0.2 10^3/uL (0.0-0.8); Eosinophils % 1.3 %; Hematocrit 36.5 % (42.0-52.0); Hemoglobin 11.7 g/dL (11.7-16.6); Lymphocytes # 2.9 10^3/uL (0.8-4.8); Lymphocytes % 24.8 %; Mean Corpuscular HGB Conc 32.1 g/dL (30.0-36.0); Mean Corpuscular Hemoglobin 26.6 pg (28.0-34.0); Mean Platelet Volume 10.2 fL (7.4-10.4); Monocytes # 1.1 10^3/uL (0.2-0.9); Neutrophils # 7.56 10^3/uL (1.8-7.7); Neutrophils % 63.8 %; Nucleated Red Blood Cells % 0 %; Platelet Count 297 10^3/cmm (130-400); Red Cell Distribution Width 13.6 % (12.1-15.1); White Blood Count 11.8 10^3/uL (4.0-10.0)
[2019-12-27 18:40] LABS: Alanine Aminotransferase 79 U/L (0-41); Albumin Level 4.7 g/dL (3.5-5.2); Alkaline Phosphatase 85 IU/L (40-130); Aspartate Amino Transferase 45 U/L (0-40); Blood Urea Nitrogen 25 mg/dL (6-20); Calcium 10.3 mg/dL (8.5-10.5); Carbon Dioxide 24 mmol/L (22-29); Chloride 94 mmol/L (98-107); Globulin 2.6 g/dL (1.3-4.6); Glomerular Filtration Rate 56.1 mL/min (90-130); Glucose 330 mg/dL (65-115); Osmolality Calculated 282 mOsm/kg (285-295); Sodium 131 mmol/L (136-145); Total Bilirubin 0.5 mg/dL (0.15-1.2); Total Protein 7.3 g/dL (6.6-8.7)
[2019-12-27 18:44] LABS: Troponin(5th) Baseline 7 ng/L (0-15)
[2019-12-27 18:56] VITALS: BP 130/83; PULSE 78; RESP 19; O2SAT 97
[2019-12-27] MEDS: sodium chloride 0.9% 1,000 ML 999 ML IV (19:07)
[2019-12-27 19:24] LABS: Digoxin 1.1 ng/mL (0.6-1.2)
--- NOTE | 2019-12-27 19:33 | ECG_ITS ---
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 Measurements Intervals [place] Rate: 80 P: 61 MD: 209 QRS: 42 QRSD: 86 T: 13 QT: 336 QTc: 389 Interpretive Statements SINUS RHYTHM LOW QRS VOLTAGE IN PRECORDIAL LEADS [QRS DEFLECTION < 1.0 mV IN CHEST LEADS] NONSPECIFIC T-WAVE ABNORMALITY Compared to ECG 12/27/2019 16:03:36 T-wave abnormality now present First degree AV block no longer present Electronically Signed On 12-28-2019 21:41:28 CDT by Laura Knapp M.D. [id number]
[2019-12-27 20:07] VITALS: BP 147/89; PULSE 81; RESP 18; O2SAT 100
--- NOTE | 2019-12-28 09:12 | PC.SOCIAL ---
Called patient to verify PCP who he indicates is Toña LATHAMP. Sent email to Ann davison to update this to account. Sent stress test referral/ order to [facility]. Called Sandra to let her know. They will schedule. Confirmation that fax was successfully sent. Pt updated they should be calling him with an appointment.
--- NOTE | 2020-01-07 14:08 | DCPLANNER ---
Patient had a stress test scheduled for 01.06.20 - patient did attend stress test.
== END 2019-12-27 20:19 | disposition home or self-care (01) ==
PROVIDERS: Emergency Provider Physician Assistant; PCP Nurse Practitioner Family
DX: R07.89 Other chest pain (principal); N28.9 Disorder of kidney and ureter, unspecified; R79.89 Other specified abnormal findings of blood chemistry; Z79.82 Long term (current) use of aspirin; Z79.4 Long term (current) use of insulin; I10 Essential (primary) hypertension; F17.210 Nicotine dependence, cigarettes, uncomplicated
CPT/HCPCS: 12345; 36415; 71045; 80053; 80162; 84484; 85025; 93005; 96360; 99283; 99284; J7030

== ENCOUNTER 2020-01-07 07:37 | Outpatient (CLI) | payer MEDICAID, SELFPAY ==
[2019-10-12 15:15] VITALS: BP 162/82; BMI 64.6
[2020-01-07 07:42] VITALS: BMI 63.6
--- NOTE | 2020-01-07 07:44 | ECG_ITS ---
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 Interpretive Statements NAME OF STUDY: LEXISCAN SESTAMIBI STRESS TEST INDICATION: [Chest Pain] Procedure procedure: At the baseline the blood pressure was 114/60, oxygen saturation 97% with a heart rate of 69. The electrocardiogram showed normal sinus rhythm. Lexiscan was infused over a period Of 20 seconds. A total of 0.4 mg of Lexiscan was infused. The stress phase was continued for a total of 5 minutes. Heart rate at the end of stress phase was 82, oxygen saturation of 98% with a blood pressure of 105/59mmHg. The EKG at the peak infusion revealed sinus rhythm with no significant new changes. Sestamibi was injected 20 seconds after the Lexiscan infusion. Blood pressure at the end of recovery phase was 109/65mmHg, oxygen saturation of 98% with a heart rate of 79 beats per minute. Conclusions: 1. Normal EKG response to Lexiscan infusion. 2. No Lexiscan induced chest pain or cardiac arrhythmia. Mild shortness of breath that improved by the end of procedure. 3. Normal heart rate and blood pressure response. 4. Sestamibi/sestamibi perfusion scan pending see separate report. RESULTS TO VIKAS PARRA [facility] Electronically Signed On 01-08-2020 17:54:53 CDT by Munir Najera M.D. [id number]
--- NOTE | 2020-01-07 07:44 | NMCV_ITS ---
NM babatunde perf SPECT r/s* [id number] Tyree Buckley Age: 39 Gender: M : 1980 Exam Date: 01/07/2020 08:36 Ordering Phys: Stephanie Brewer Technologist: MARIAJOSE Arechiga Exam Location: [facility] Indications: CHEST PAIN STRESS TEST Please see separate stress test [facility] for full findings IMAGE PROTOCOL Rest/Stress 1 Lexiscan Day Radiopharmaceutical Dose (mCi) Administration Site Administered by Rest: Tc-99m 11.5 IV MARIAJOSE Shane Sestamibi Stress:Tc-99m 35.1 IV MARIAJOSE Shane Sestamibi Rest: 07-Jan-2020 60 Discovery 630 Stress: 07-Jan-2020 30 Discovery 630 0.4mg Lexiscan. Images obtained in supine and prone position. SPECT RESULTS Technical Quality: Good Raw Data Analysis: Soft tissue attenuation Image Corrections: No attenuation or motion correction applied Summed Stress Score: 5 Summed Rest Score: 8 Summed Difference Score: 0 PERFUSION FINDINGS There is a moderate size, fixed perfusion defect seen in the apical to mid inferior wall. Likely attenuation artifact as myocardial unction is normal and prone imaging shows improved uptake. FUNCTIONAL RESULTS (calculated via Gated SPECT) Stress Image LV EF (%): 60 Stress EDV (mL):142 TID: 0.91 Stress ESV (mL):57 FUNCTIONAL FINDINGS: There is normal left ventricular systolic function. IMPRESSIONS 1. Abnormal myocardial perfusion imaging with fixed defect of apical to mid inferior wall. Likely attenuation artifact as myocardial function is normal and prone imaging shows improvement. Clinical correlation is advised. 2. Normal LV function with EF of 60%. Munir Najera MD (Electronically Signed) Final Date: 07 January 2020 12:22 S
--- NOTE | 2020-01-07 09:39 | SUR.PREOP ---
Patient reports no pain or discomfort prior to the start of the procedure.
[2020-01-07] MEDS: regadenoson 0.4 Mg/5 ml Syringe IVP (09:40)
[2020-01-07 10:18] VITALS: BP 106/64; PULSE 72
== END 2020-01-07 07:38 | disposition home or self-care (01) ==
LOC: CDL 07:37
PROVIDERS: PCP Nurse Practitioner Family; Visit Provider Physician Assistant
DX: R07.9 Chest pain, unspecified (principal)
CPT/HCPCS: 78452; 93017; A9500; J2785

== ENCOUNTER → 2020-01-08 09:10 | Outpatient (BNVA) | payer MEDICAID, SELFPAY ==
[2019-10-12 15:15] VITALS: BP 162/82; BMI 64.6
== END ==
PROVIDERS: PCP Nurse Practitioner Family; Visit Provider Counselor Mental Health
DX: F31.73 Bipolar disorder, in partial remission, most recent episode manic (principal); F43.10 Post-traumatic stress disorder, unspecified; F32.9 Major depressive disorder, single episode, unspecified
CPT/HCPCS: 90832

== ENCOUNTER → 2020-01-12 08:22 | Outpatient (BNVA) | payer MEDICAID, SELFPAY ==
[2019-10-12 15:15] VITALS: BP 162/82; BMI 64.6
== END ==
PROVIDERS: PCP Nurse Practitioner Family; Visit Provider Counselor Mental Health
DX: F31.73 Bipolar disorder, in partial remission, most recent episode manic (principal); F43.10 Post-traumatic stress disorder, unspecified; F32.9 Major depressive disorder, single episode, unspecified; F10.21 Alcohol dependence, in remission
CPT/HCPCS: 90832

== ENCOUNTER 2020-01-22 20:24 | Emergency (ER) | payer MEDICAID, SELFPAY ==
[2019-10-12 15:15] VITALS: BP 162/82; BMI 64.6
[2020-01-22 21:17] LABS: Basophils # 0.1 10^3/uL (0.0-0.1); Basophils % 0.8 %; Eosinophils # 0.1 10^3/uL (0.0-0.8); Eosinophils % 0.9 %; Hematocrit 39.1 % (42.0-52.0); Hemoglobin 12.7 g/dL (11.7-16.6); Lymphocytes # 2.6 10^3/uL (0.8-4.8); Lymphocytes % 27.6 %; Mean Corpuscular HGB Conc 32.5 g/dL (30.0-36.0); Mean Corpuscular Hemoglobin 27.2 pg (28.0-34.0); Mean Corpuscular Volume 83.7 fL (80-94); Mean Platelet Volume 10.3 fL (7.4-10.4); Monocytes # 0.8 10^3/uL (0.2-0.9); Monocytes % 8.2 %; Neutrophils # 5.85 10^3/uL (1.8-7.7); Neutrophils % 61.9 %; Nucleated Red Blood Cells % 0 %; Platelet Count 348 10^3/cmm (130-400); Red Blood Count 4.67 10^6/uL (4.1-5.3); Red Cell Distribution Width 13.6 % (12.1-15.1); White Blood Count 9.5 10^3/uL (4.0-10.0)
[2020-01-22 21:19] VITALS: BP 115/86; PULSE 105; RESP 20; TEMP 36.8; O2SAT 99; BMI 62.6
--- NOTE | 2020-01-22 21:32 | W.ED.RECABL ---
HPI - Recheck/Abnormal Lab/Rx General: Chief Complaint: Recheck/Abnormal Lab/Rx Stated Complaint: hyperglycemia Time Seen by Provider: 01/22/20 21:32 Source: patient Mode of arrival: ambulatory Limitations: no limitations History of Present Illness: HPI narrative: Patient reports for the last 3 months he has had difficulty with his blood sugar running as high as 600. Patient appears well. Patient appears in no acute distress. Review of Systems General: Reports: 10 or more systems reviewed and unremarkable except in HPI and below Endo: Reports: other (High blood sugar) PFS ED PFSH: Medical History (Updated 01/23/20 @ 01:17 by SCOTTY Cuello) Alcohol dependence, in remission Benign essential HTN Binge eating disorder Bipolar disorder, in partial remission, most recent episode manic DJD (degenerative joint disease) Dyspnea on exertion Gallstones GERD (gastroesophageal reflux disease) GI disease Morbid obesity Morbid obesity Nephrolithiasis Nephropathy Obstructive sleep apnea Posttraumatic stress disorder Supraventricular tachycardia Tinea cruris Surgical History H/O oral surgery S/P adenoidectomy S/P cholecystectomy S/P hernia repair S/P knee surgery S/P myringotomy with insertion of tube S/P tendon repair S/P vasectomy Social History Smoking and tobacco status: current every day smoker cigarettes Smoking risk assessment/counseling performed?: Yes Tobacco counseling given: counseling >3 minutes Physical Exam Const: COMMON NORMALS: no acute distress and patient oriented x3 GENERAL APPEARANCE: cooperative HENMT: COMMON NORMALS: normocephalic and Normal external nose present HEAD & SCALP: normal to inspection and normocephalic NOSE: Normal external nose present MOUTH: Normal oral and palatal mucosa present THROAT: posterior oropharynx normal Eye: GENERAL EYE: appearance normal, both eyes and all related structures Neck/C-Spine: COMMON NORMALS: full ROM Lymph: LYMPHATIC: no lymphadenopathy noted Chest: COMMONS NORMALS: normal inspection of the chest Resp: COMMON NORMALS: normal respiratory effort EFFORT & INSPECTION: Yes able to speak in complete sentences Cardio: COMMON NORMALS: regular rate and regular rhythm RATE: regular rate RHYTHM: regular rhythm GI: COMMON NORMALS: non-tender : COMMON NORMALS: Yes no CVA tenderness BLADDER/KIDNEY EXAM: Yes no CVA tenderness Back/Pelvis: COMMON NORMALS: no CVA tenderness and thoracic and lumbar spine normal to inspection Extremity: COMMON NORMALS: normal to inspection Neuro: COMMON NORMALS: patient oriented x3 and moves all extremities Psych: COMMON NORMALS: mental status grossly normal and cooperative Skin: COMMON NORMALS: no rashes or lesions noted GENERAL SKIN EXAM: no rashes or lesions noted Course Vital Signs: Vital signs: Vital Signs Temperature 98.3 F 01/22/20 21:19 Pulse Rate 111 H 01/22/20 21:46 Respiratory Rate 17 01/22/20 21:46 Blood Pressure 131/91 01/22/20 21:46 Pulse Oximetry 98 01/22/20 21:46 MDM - Recheck/Abnormal Lab/Rx MDM Narrative: Medical decision making narrative: Patient comes in today for concerns of high blood glucose. On exam patient appears well. Respirations are even lungs are clear to auscultation. Skin is warm and dry. Differential diagnosis includes but not limited to diabetic acidosis, uncontrolled diabetes, electrolyte abnormality. Laboratory values noted and normal blood cell count, some mild hyponatremia, elevated glucose at 460, and elevated creatinine at 1.7. Patient had no ketones in serum. Patient was infused with 2 L of IV fluids to correct his mild dehydration. Patient was given 10 units of insulin which lowered his blood glucose from 460 to the 380s. Patient appeared well. Reviewed exam with patient with recommendations for increasing Lantus to 75 units twice a day and continuing with recommendations of fast acting insulin 10 units before each meal. Patient reported understanding of care plan and need for follow-up. Lab Data: Labs: Lab Results 01/22/20 01/22/20 01/22/20 Range/Units 21:11 21:11 21:11 WBC 9.5 (4.0-10.0) 10^3/ uL RBC 4.67 (4.1-5.3) 10^6/u L Hgb 12.7 (11.7-16.6) g/dL Hct 39.1 L (42.0-52.0) % MCV 83.7 (80-94) fL MCH 27.2 L (28.0-34.0) pg MCHC 32.5 (30.0-36.0) g/dL RDW 13.6 (12.1-15.1) % Plt Count 348 (130-400) 10^3/c mm MPV 10.3 (7.4-10.4) fL Neut % (Auto) 61.9 % Lymph % (Auto) 27.6 % [place] % (Auto) 8.2 % Eos % (Auto) 0.9 % Baso % (Auto) 0.8 % Neut # (Auto) 5.85 (1.8-7.7) 10^3/u L Lymph # (Auto) 2.6 (0.8-4.8) 10^3/u L [place] # (Auto) 0.8 (0.2-0.9) 10^3/u L Eos # (Auto) 0.1 (0.0-0.8) 10^3/u L Baso # (Auto) 0.1 (0.0-0.1) 10^3/u L Nucleated RBC % (a uto) 0 % Nucleated RBCs # 0.0 /100WBC Sodium 128 L (136-145) mmol/L Potassium 4.4 (3.5-5.1) mmol/L Chloride 92 L (98-107) mmol/L Carbon Dioxide 22 (22-29) mmol/L Anion Gap 18.4 (5-19) BUN 37 H (6-20) mg/dL Creatinine 1.7 H (0.7-1.2) mg/dL GFR Calculation 44.9 L (90-130) mL/min Glucose 466 H (65-115) mg/dL POC Glucose (70-110) mg/dL Calculated Osmolal ity 284 L (285-295) mOsm/k g Calcium 9.9 (8.5-10.5) mg/dL Total Bilirubin 0.5 (0.15-1.2) mg/dL AST 86 H (0-40) U/L ALT 143 H (0-41) U/L Alkaline Phosphata se 101 (40-130) IU/L Total Protein 7.8 (6.6-8.7) g/dL Albumin 4.4 (3.5-5.2) g/dL Globulin 3.4 (1.3-4.6) g/dL Urine Color (Yellow) Urine Appearance (CLEAR) Urine pH (5-7) Ur Specific Gravit y (1.005-1.030) Urine Protein (Negative) Urine Glucose (UA) (Normal) Urine Ketones (Negative) Urine Blood (Negative) Urine Nitrate (Negative) Urine Bilirubin (NEGATIVE) Urine Urobilinogen (Negative) mg/dL Ur Leukocyte Bethanie ase (Negative) Serum Ketones Negative (Negative) 01/22/20 01/23/20 Range/Units 21:48 01:10 WBC (4.0-10.0) 10^3/ uL RBC (4.1-5.3) 10^6/u L Hgb (11.7-16.6) g/dL Hct (42.0-52.0) % MCV (80-94) fL MCH (28.0-34.0) pg MCHC (30.0-36.0) g/dL RDW (12.1-15.1) % Plt Count (130-400) 10^3/c mm MPV (7.4-10.4) fL Neut % (Auto) % Lymph % (Auto) % [place] % (Auto) % Eos % (Auto) % Baso % (Auto) % Neut # (Auto) (1.8-7.7) 10^3/u L Lymph # (Auto) (0.8-4.8) 10^3/u L [place] # (Auto) (0.2-0.9) 10^3/u L Eos # (Auto) (0.0-0.8) 10^3/u L Baso # (Auto) (0.0-0.1) 10^3/u L Nucleated RBC % (a uto) % Nucleated RBCs # /100WBC Sodium (136-145) mmol/L Potassium (3.5-5.1) mmol/L Chloride (98-107) mmol/L Carbon Dioxide (22-29) mmol/L Anion Gap (5-19) BUN (6-20) mg/dL Creatinine (0.7-1.2) mg/dL GFR Calculation (90-130) mL/min Glucose (65-115) mg/dL POC Glucose 356 (70-110) mg/dL Calculated Osmolal ity (285-295) mOsm/k g Calcium (8.5-10.5) mg/dL Total Bilirubin (0.15-1.2) mg/dL AST (0-40) U/L ALT (0-41) U/L Alkaline Phosphata se (40-130) IU/L Total Protein (6.6-8.7) g/dL Albumin (3.5-5.2) g/dL Globulin (1.3-4.6) g/dL Urine Color Yellow (Yellow) Urine Appearance Clear (CLEAR) Urine pH 5 (5-7) Ur Specific Gravit y 1.020 (1.005-1.030) Urine Protein Neg (Negative) Urine Glucose (UA) 4+ H (Normal) Urine Ketones Negative (Negative) Urine Blood Neg (Negative) Urine Nitrate Negative (Negative) Urine Bilirubin Neg (NEGATIVE) Urine Urobilinogen Norm (Negative) mg/dL Ur Leukocyte Bethanie ase Negative (Negative) Serum Ketones (Negative) Discharge Plan Discharge Patient Disposition: Home Clinical Impression: Uncontrolled diabetes mellitus with hyperglycemia Qualifiers: Diabetes mellitus type: type 2 Qualified Code(s): E11.65 - Type 2 diabetes mellitus with hyperglycemia Condition: Stable Prescriptions: Changed Lantus Solostar U-100 Insulin 100 unit/mL (3 mL) insulin pen 75 unit SUBCUT BID Qty: 15 RF: 0 No Action Geodon 40 mg capsule 40 mg PO 0700,1700 Qty: 60 RF: 1 lamotrigine [Lamictal] 100 mg tablet 100 mg PO DAILY 30 Days Qty: 30 RF: 1 Victoza 2-Henri 0.6 mg/0.1 mL (18 mg/3 mL) pen injector 1.8 mg SUBCUT DAILY RF: 0 insulin aspart U-100 [Novolog PenFill U-100 Insulin] 100 unit/mL cartridge 10 unit SUBCUT TID RF: 0 digoxin 125 mcg (0.125 mg) tablet 125 mcg PO DAILY RF: 0 diclofenac sodium 75 mg tablet,delayed release (DR/EC) 75 mg PO BID Qty: 14 RF: 0 metformin 1,000 mg Tablet 1,000 mg PO BID RF: 0 lisinopril 40 mg Tablet 40 mg PO DAILY RF: 0 Dexilant 30 mg Capsule,Biphase Delayed Releas 30 mg PO DAILY RF: 0 aspirin [Aspir-81] 81 mg Tablet,Delayed Release (Dr/Ec) 81 mg PO DAILY RF: 0 Discharge Orders: Discharge Order (Routine); Ordered 01/23/20 Ordered By: Wyatt Barker Referrals: AIDA,VIKAS R, STAFF PHARMACIST [Primary Care Provider] - Discharge Diet: Usual diet Discharge Activity: Increase activity as tolerated Patient Instructions: Diabetic Hyperglycemia (ED) Activity Restrictions/Additional Instructions: Continue with routine care. Increase Lantus to 75 units twice a day. Continue with recommendations for NovoLog 10 units with each meal. Drink plenty of water. Follow-up with primary care in 1 week. Return to the emergency department for new concerns. Coding Level of Care Code ED Power Press Supervisor for Christin Fwmarvel Exam Comprehensive
[2020-01-22 21:43] LABS: Alanine Aminotransferase 143 U/L (0-41); Albumin Level 4.4 g/dL (3.5-5.2); Alkaline Phosphatase 101 IU/L (40-130); Anion Gap 18.4 (5-19); Aspartate Amino Transferase 86 U/L (0-40); Blood Urea Nitrogen 37 mg/dL (6-20); Calcium 9.9 mg/dL (8.5-10.5); Carbon Dioxide 22 mmol/L (22-29); Chloride 92 mmol/L (98-107); Globulin 3.4 g/dL (1.3-4.6); Glomerular Filtration Rate 44.9 mL/min (90-130); Glucose 466 mg/dL (65-115); Osmolality Calculated 284 mOsm/kg (285-295); Potassium 4.4 mmol/L (3.5-5.1); Sodium 128 mmol/L (136-145); Total Bilirubin 0.5 mg/dL (0.15-1.2); Total Protein 7.8 g/dL (6.6-8.7)
[2020-01-22 21:46] VITALS: BP 131/91; PULSE 111; RESP 17; O2SAT 98
[2020-01-22 21:49] LABS: Ketone (Acetest) Serum Negative (Negative)
[2020-01-22 21:56] LABS: Add Urine Microscopic? NO
[2020-01-22 21:58] LABS: Bilirubin Urine Neg (NEGATIVE); Blood Urine Neg (Negative); Glucose Urine UA 4+ (Normal); Ketones Urine Negative (Negative); Nitrate Urine Negative (Negative); Protein Urine Neg (Negative); Urine Appearance Clear (CLEAR); Urine Color Yellow (Yellow); pH Urine 5 (5-7)
[2020-01-22 21:59] LABS: Leukocyte Esterase Urine Negative (Negative); Urobilinogen Urine Norm (Negative)
[2020-01-22] MEDS: potassium chloride ER 10 mEq Tablet PO (23:45)
[2020-01-22] MEDS: insulin regular-human 100 units/1 mL 10 UNIT IVP (23:50)
[2020-01-23] MEDS: sodium chloride 0.9% 1,000 ML 999 ML IV ×2 (00:06→01:45)
--- NOTE | 2020-01-23 01:12 | PC.NURSE ---
Blood glucose at 0112 is 356 ER Physician is aware.
[2020-01-23 01:15] LABS: Glucose Point of Care 356 mg/dL (70-110)
[2020-01-23 02:46] VITALS: BP 132/62; PULSE 100; RESP 18; O2SAT 99
== END 2020-01-23 02:47 | disposition home or self-care (01) ==
PROVIDERS: Emergency Provider Nurse Practitioner Family; PCP Nurse Practitioner Family
DX: E11.65 Type 2 diabetes mellitus with hyperglycemia (principal); Z79.4 Long term (current) use of insulin; Z79.82 Long term (current) use of aspirin; I10 Essential (primary) hypertension; F17.210 Nicotine dependence, cigarettes, uncomplicated
CPT/HCPCS: 12345; 36415; 36416; 80053; 81003; 82009; 82962; 85025; 96360; 96361; 96374; 99283; J1815; J7030

== ENCOUNTER → 2020-01-25 07:40 | Outpatient (BNVA) | payer MEDICAID, SELFPAY ==
[2019-10-12 15:15] VITALS: BP 162/82; BMI 64.6
== END ==
PROVIDERS: PCP Nurse Practitioner Family; Visit Provider Nurse Practitioner
DX: F43.10 Post-traumatic stress disorder, unspecified (principal); F31.73 Bipolar disorder, in partial remission, most recent episode manic; F10.21 Alcohol dependence, in remission
CPT/HCPCS: 99213

== ENCOUNTER → 2020-02-05 09:02 | Outpatient (BNVA) | payer MEDICAID, SELFPAY ==
[2019-10-12 15:15] VITALS: BP 162/82; BMI 64.6
== END ==
PROVIDERS: PCP Nurse Practitioner Family; Visit Provider Counselor Mental Health
DX: F31.73 Bipolar disorder, in partial remission, most recent episode manic (principal); F43.10 Post-traumatic stress disorder, unspecified; F32.9 Major depressive disorder, single episode, unspecified
CPT/HCPCS: 90834

== ENCOUNTER → 2020-02-19 07:46 | Outpatient (BNVA) | payer MEDICAID, SELFPAY ==
[2019-10-12 15:15] VITALS: BP 162/82; BMI 64.6
== END ==
PROVIDERS: PCP Nurse Practitioner Family; Visit Provider Counselor Mental Health
DX: F31.73 Bipolar disorder, in partial remission, most recent episode manic (principal); F43.10 Post-traumatic stress disorder, unspecified; F32.9 Major depressive disorder, single episode, unspecified; F60.89 Other specific personality disorders
CPT/HCPCS: 90832

== ENCOUNTER → 2020-03-04 08:57 | Outpatient (BNVA) | payer MEDICAID, SELFPAY ==
[2019-10-12 15:15] VITALS: BP 162/82; BMI 64.6
== END ==
PROVIDERS: PCP Nurse Practitioner Family; Visit Provider Counselor Mental Health
DX: F31.73 Bipolar disorder, in partial remission, most recent episode manic (principal); F43.10 Post-traumatic stress disorder, unspecified; F32.9 Major depressive disorder, single episode, unspecified
CPT/HCPCS: 90832

== ENCOUNTER → 2020-03-11 08:24 | Outpatient (BNVA) | payer MEDICAID, SELFPAY ==
[2019-10-12 15:15] VITALS: BP 162/82; BMI 64.6
== END ==
PROVIDERS: PCP Nurse Practitioner Family; Visit Provider Counselor Mental Health
DX: F31.73 Bipolar disorder, in partial remission, most recent episode manic (principal); F43.10 Post-traumatic stress disorder, unspecified; F32.9 Major depressive disorder, single episode, unspecified; F60.89 Other specific personality disorders; F50.81 Binge eating disorder
CPT/HCPCS: 90834

== ENCOUNTER → 2020-03-14 07:42 | Outpatient (BNVA) | payer MEDICAID, SELFPAY ==
[2019-10-12 15:15] VITALS: BP 162/82; BMI 64.6
== END ==
PROVIDERS: PCP Nurse Practitioner Family; Visit Provider Nurse Practitioner
DX: F43.10 Post-traumatic stress disorder, unspecified (principal); F10.21 Alcohol dependence, in remission; F31.73 Bipolar disorder, in partial remission, most recent episode manic
CPT/HCPCS: 99213

== ENCOUNTER → 2020-03-25 08:31 | Outpatient (BNVA) | payer MEDICAID, SELFPAY ==
[2019-10-12 15:15] VITALS: BP 162/82; BMI 64.6
== END ==
PROVIDERS: PCP Nurse Practitioner Family; Visit Provider Counselor Mental Health
DX: F31.73 Bipolar disorder, in partial remission, most recent episode manic (principal); F50.81 Binge eating disorder; F32.9 Major depressive disorder, single episode, unspecified; F43.10 Post-traumatic stress disorder, unspecified
CPT/HCPCS: 90832

== ENCOUNTER 2020-04-18 09:19 | Outpatient (CLI) | payer MEDICAID, SELFPAY ==
[2019-10-12 15:15] VITALS: BP 162/82; BMI 64.6
--- NOTE | 2020-04-18 09:26 | XR_ITS ---
WS: [id number] Exam: XR shoulder RT min 2V* [id number] Date/Time of Exam: 04/18/2020 9:28 AM Reason For Exam: PAIN IN RIGHT SHOULDER No fracture or dislocation. Minimal DJD at the AC joint. Normal soft tissues. XR/XR shoulder RT min 2V* [id number] IMPRESSION: 1. Minimal AC joint DJD. No fracture.
== END 2020-04-18 09:20 | disposition home or self-care (01) ==
LOC: RAD 09:23
PROVIDERS: PCP Nurse Practitioner Family; Visit Provider Nurse Practitioner Family
DX: M25.511 Pain in right shoulder (principal)
CPT/HCPCS: 73030

== ENCOUNTER → 2020-05-20 08:34 | Outpatient (BNVA) | payer OTHER, SELFPAY ==
[2020-04-21 08:35] VITALS: BP 162/82; BMI 64.6
== END ==
PROVIDERS: PCP Nurse Practitioner Family; Visit Provider Nurse Practitioner
DX: F31.73 Bipolar disorder, in partial remission, most recent episode manic (principal); Z79.899 Other long term (current) drug therapy
CPT/HCPCS: 80061; 83036

== ENCOUNTER 2020-05-21 11:56 | Emergency (ER) | payer MEDICAID, SELFPAY ==
[2020-04-21 08:35] VITALS: BP 162/82; BMI 64.6
[2020-05-21 11:58] VITALS: BP 175/123; PULSE 95; RESP 18; TEMP 36.9; O2SAT 97; BMI 62.4
[2020-05-21 12:06] VITALS: BP 151/89; PULSE 101; RESP 18; O2SAT 98
--- NOTE | 2020-05-21 12:06 | ED_ITS ---
HPI - Extremity Problem General: Chief complaint: Extremity Injury, Upper Stated complaint: R SHOULDER PAIN Time Seen by Provider: 05/21/20 12:01 Source: patient Mode of arrival: ambulatory Limitations: no limitations History of Present Illness: HPI Narrative: 39-year-old male patient states that in 1997 he injured his right shoulder pitching while playing baseball. Over the years he has had pain on and off to the right shoulder. Over the last month he has had increased pain and discomfort. Primary care had done check x- rays of his shoulder and it noted arthritis changes. Patient denies any falls or new injuries. Patient appears well. Patient appears obese. Patient has a history of diabetes, and hypertension. MD Complaint: joint pain Review of Systems General: Reports: 10 or more systems reviewed and unremarkable except in HPI and below Musc: Reports: other (Right shoulder pain.) PFS ED PFSH: Medical History (Updated 05/21/20 @ 12:09 by SCOTTY Cuello) Alcohol dependence, in remission Benign essential HTN Binge eating disorder Bipolar disorder, in partial remission, most recent episode manic DJD (degenerative joint disease) Dyspnea on exertion Gallstones GERD (gastroesophageal reflux disease) GI disease Morbid obesity Morbid obesity Nephrolithiasis Nephropathy Obstructive sleep apnea Posttraumatic stress disorder Supraventricular tachycardia Tinea cruris Surgical History H/O oral surgery S/P adenoidectomy S/P cholecystectomy S/P hernia repair S/P knee surgery S/P myringotomy with insertion of tube S/P tendon repair S/P vasectomy Social History (Updated 04/14/20 @ 15:10 by Marva Barth RN) Smoking and tobacco status: current every day smoker e-cigarettes E-Cigarette Details: vaporizer device and with nicotine Smoking risk assessment/counseling performed?: Yes Tobacco counseling given: counseling >3 minutes Alcohol intake: former Year of sobriety/quit date alcohol: 11mo Adopted: Yes Caregiver/support person: No Lives independently: Yes Household members: spouse Housing: Apartment Marital status: Number of children: 2 Highest education level completed: Some College, No Degree service: Yes status: Medically Discharged/Retired branch: [employer] Current occupational status: disabled Pets and animals: Yes Pets & animals: dog(s) History of recent travel: No Leisure activites: games Sexually active: Yes Current gender identity: Male Leda/Mandaeism: None Special leda needs: No Agree to transfusion: Yes Financial difficulty paying for basics: Not Very Hard Physical Exam Const: COMMON NORMALS: no acute distress and patient oriented x3 GENERAL APPEARANCE: cooperative HENMT: COMMON NORMALS: normocephalic and Normal external nose present HEAD & SCALP: normal to inspection and normocephalic NOSE: Normal external nose present MOUTH: Normal oral and palatal mucosa present THROAT: posterior oropharynx normal Neck/C-Spine: COMMON NORMALS: full ROM Chest: COMMONS NORMALS: normal inspection of the chest Resp: COMMON NORMALS: normal respiratory effort EFFORT & INSPECTION: Yes able to speak in complete sentences Cardio: COMMON NORMALS: regular rate and regular rhythm RATE: regular rate RHYTHM: regular rhythm GI: COMMON NORMALS: non-tender Back/Pelvis: COMMON NORMALS: thoracic and lumbar spine normal to inspection Extremity: NARRATIVE EXTREMITY EXAM: Patient has some anterior tenderness to the right shoulder area. Patient has some reduction in abduction and abduction. Pulses and sensations are normal. Neuro: COMMON NORMALS: patient oriented x3 and moves all extremities Psych: COMMON NORMALS: mental status grossly normal and cooperative Skin: COMMON NORMALS: no rashes or lesions noted GENERAL SKIN EXAM: no rashes or lesions noted Course Vital Signs: Vital signs: Vital Signs Temperature 98.4 F 05/21/20 11:58 Pulse Rate 95 05/21/20 11:58 Respiratory Rate 18 05/21/20 11:58 Blood Pressure 175/123 05/21/20 11:58 Pulse Oximetry 97 05/21/20 11:58 MDM - Extremity (Nontraumatic) MDM Narrative: Medical decision making narrative: Patient comes in today for complaints of injury to the right shoulder 22 years ago. Patient reports waxing and waning of pain to the shoulder over the last few years. Over the last month patient reports worsening discomfort. Patient has some reduction in range of motion of the shoulder with some anterior tenderness on palpation. Differential diagnosis includes impingement syndrome, frozen shoulder syndrome, rotator cuff syndrome/injury. Suspect patient may have a old rotator cuff injury that has worsened over the years. Patient also reported a previous x-ray in the primary care office over the last month that showed some arthritic changes. Discussed patient's need to follow-up with primary care for further evaluation and treatment may be with MRI or orthopedic referral. Patient requested orthopedic referral I had placed a case management request and to assist with the referral. Patient be given a few hydrocodone for breakthrough pain but is to use it sparingly and may be at night just for rest. Discussed risk of addiction. Patient reported understanding of plan. Discharge Plan Discharge Patient Disposition: Home Clinical Impression: Pain in right shoulder Qualifiers: Chronicity: acute Qualified Code(s): M25.511 - Pain in right shoulder Condition: Stable Prescriptions: New hydrocodone-acetaminophen 5-325 mg tablet 1 tab PO TID PRN (Reason: pain) Qty: 12 RF: 0 No Action Victoza 2-Henri 0.6 mg/0.1 mL (18 mg/3 mL) pen injector 1.8 mg SUBCUT DAILY RF: 0 insulin aspart U-100 [Novolog PenFill U-100 Insulin] 100 unit/mL cartridge 10 unit SUBCUT TID RF: 0 digoxin 125 mcg (0.125 mg) tablet 125 mcg PO DAILY RF: 0 Geodon 40 mg capsule 40 mg PO 0700,1700 Qty: 60 RF: 2 lamotrigine [Lamictal] 100 mg tablet 100 mg PO DAILY 30 Days Qty: 30 RF: 2 diclofenac sodium 75 mg tablet,delayed release (DR/EC) 75 mg PO BID Qty: 14 RF: 0 metformin 1,000 mg Tablet 1,000 mg PO BID RF: 0 lisinopril 40 mg Tablet 40 mg PO DAILY RF: 0 Dexilant 30 mg Capsule,Biphase Delayed Releas 30 mg PO DAILY RF: 0 aspirin [Aspir-81] 81 mg Tablet,Delayed Release (Dr/Ec) 81 mg PO DAILY RF: 0 Lantus Solostar U-100 Insulin 100 unit/mL (3 mL) insulin pen 75 unit SUBCUT BID Qty: 15 RF: 0 Discharge Orders: Discharge ED (Routine); Ordered 05/21/20 Ordered By: Wyatt Barker Referrals: VIKAS PARRA FNP [Primary Care Provider] - Discharge Diet: Usual diet Discharge Activity: Increase activity as tolerated Patient Instructions: Arthralgia (ED) Activity Restrictions/Additional Instructions: Activity as tolerated. Gentle stretching and range of motion exercises for the shoulder. Use ice or heat to the area for further comfort relief. Continue with meloxicam as directed. Use hydrocodone medication for breakthrough pain or for rest at bedtime. Follow-up with primary care or orthopedics regarding further evaluation with MRI. Return to the emergency department for new concerns. Coding Level of Care Code ED Hospitality Team Member for Christin Chang
[2020-05-21 12:23] VITALS: PULSE 101
[2020-05-21 12:24] VITALS: BP 151/89; PULSE 101; RESP 18; TEMP 37.1; O2SAT 98
--- NOTE | 2020-05-23 08:16 | DCPLANNER ---
logistics solution manager had message to schedule a follow up appointment for patient with ortho. logistics solution manager called the ortho clinc, spoke with Josephine, gave clinic patients information. logistics solution manager was told that patients information would be printed and reviewed. Clinic will call patient with appointment information.
--- NOTE | 2020-05-24 10:58 | DCPLANNER ---
Patient has a follow up appointment scheduled for Sunday, June 07, 2020 at 9:[address] Govea. Clinic will call patient with appointment information.
--- NOTE | 2020-07-15 14:06 | DCPLANNER ---
Patient had a follow up appointment scheduled with ortho - patient did attend appointment.
== END 2020-05-21 12:28 | disposition home or self-care (01) ==
PROVIDERS: Emergency Provider Nurse Practitioner Family; PCP Nurse Practitioner Family
DX: M25.511 Pain in right shoulder (principal); Z79.4 Long term (current) use of insulin; Z79.82 Long term (current) use of aspirin; I10 Essential (primary) hypertension; F17.290 Nicotine dependence, other tobacco product, uncomplicated
CPT/HCPCS: 12345; 99281

== ENCOUNTER 2020-06-03 17:52 | Emergency (ER) | payer MEDICAID, SELFPAY ==
[2020-05-24 16:28] VITALS: BP 132/80; BMI 61.5
[2020-06-03 19:22] VITALS: BP 196/112; PULSE 106; RESP 24; TEMP 36.8; O2SAT 96; BMI 62.4
--- NOTE | 2020-06-03 20:22 | W.ED.BACK ---
HPI - Back Pain/Injury General: Chief Complaint: Back Pain/Injury Stated Complaint: R LOWER BACK PAIN, COVID SYMPTOMS Time Seen by Provider: 06/03/20 20:22 Source: patient Mode of arrival: ambulatory Limitations: no limitations History of Present Illness: HPI Narrative: Patient comes in today for complaints of upper respiratory symptoms since last Saturday. Patient also reports some low back pain. Patient does have chronic back pain and has been using acetaminophen for his pain that has been unable to control it with acetaminophen alone. Patient appears well. Patient appears in no acute distress. Review of Systems General: Reports: 10 or more systems reviewed and unremarkable except in HPI and below Const: Reports: malaise Musc: Reports: back pain PFSH ED PFSH: Medical History (Updated 06/03/20 @ 21:05 by SCOTTY Cuello) Alcohol dependence, in remission Benign essential HTN Binge eating disorder Bipolar disorder, in partial remission, most recent episode manic DJD (degenerative joint disease) Dyspnea on exertion Gallstones GERD (gastroesophageal reflux disease) GI disease Morbid obesity Morbid obesity Nephrolithiasis Nephropathy Obstructive sleep apnea Posttraumatic stress disorder Supraventricular tachycardia Tinea cruris Surgical History H/O oral surgery S/P adenoidectomy S/P cholecystectomy S/P hernia repair S/P knee surgery S/P myringotomy with insertion of tube S/P tendon repair S/P vasectomy Social History (Updated 04/14/20 @ 15:10 by Marva Barth RN) Smoking and tobacco status: current every day smoker e-cigarettes E-Cigarette Details: vaporizer device and with nicotine Smoking risk assessment/counseling performed?: Yes Tobacco counseling given: counseling >3 minutes Alcohol intake: former Year of sobriety/quit date alcohol: 11mo Adopted: Yes Caregiver/support person: No Lives independently: Yes Household members: spouse Housing: Apartment Marital status: Number of children: 2 Highest education level completed: Some College, No Degree service: Yes status: Medically Discharged/Retired branch: [employer] Current occupational status: disabled Pets and animals: Yes Pets & animals: dog(s) History of recent travel: No Leisure activites: games Sexually active: Yes Current gender identity: Male Leda/Worship: None Special leda needs: No Agree to transfusion: Yes Financial difficulty paying for basics: Not Very Hard Physical Exam Const: COMMON NORMALS: no acute distress and patient oriented x3 GENERAL APPEARANCE: cooperative HENMT: COMMON NORMALS: normocephalic, TM's normal bilaterally and Normal external nose present HEAD & SCALP: normal to inspection and normocephalic NOSE: Normal external nose present TYMPANIC MEMBRANE: TM's normal bilaterally MOUTH: Normal oral and palatal mucosa present Eye: GENERAL EYE: appearance normal, both eyes and all related structures Neck/C-Spine: COMMON NORMALS: full ROM Chest: COMMONS NORMALS: normal inspection of the chest Resp: COMMON NORMALS: normal respiratory effort EFFORT & INSPECTION: Yes able to speak in complete sentences Cardio: COMMON NORMALS: regular rate and regular rhythm RATE: regular rate RHYTHM: regular rhythm GI: COMMON NORMALS: non-tender Back/Pelvis: COMMON NORMALS: thoracic and lumbar spine normal to inspection Extremity: COMMON NORMALS: normal to inspection Neuro: COMMON NORMALS: patient oriented x3 and moves all extremities Psych: COMMON NORMALS: mental status grossly normal and cooperative Skin: COMMON NORMALS: no rashes or lesions noted GENERAL SKIN EXAM: no rashes or lesions noted Course Vital Signs: Vital signs: Vital Signs Temperature 98.3 F 06/03/20 19:22 Pulse Rate 92 06/03/20 21:29 Respiratory Rate 24 H 06/03/20 19:22 Blood Pressure 167/97 06/03/20 21:29 Pulse Oximetry 92 06/03/20 21:29 MDM - Back Pain/Injury MDM Narrative: Medical decision making narrative: Patient comes in today for upper respiratory symptoms since last Saturday and concern for COVID-19. Patient also reports some back pain. On exam patient has some muscle tenderness in his low back. Lungs were clear to auscultation. Vital signs were normal except for some mild elevation in blood pressure. Differential diagnosis includes acute exacerbation of chronic back pain. Upper respiratory infection, viral syndrome, COVID-19, lumbar strain, intervertebral disc disease, facet arthropathy. Reviewed exam with patient with recommendations for treatment and follow-up. Patient's COVID-19 was positive. Medical Records: Attestation: I reviewed the patient's medical records. Lab Data: Labs: Lab Results 06/03/20 Range/Units 19:52 SARS-CoV-2 Ag (Rap id) Positive H (Negative) Discharge Plan Discharge Patient Disposition: Home Clinical Impression: COVID-19 Degenerated intervertebral disc Qualifiers: Spinal region: lumbar Qualified Code(s): M51.36 - Other intervertebral disc degeneration, lumbar region Condition: Stable Prescriptions: Continued hydrocodone-acetaminophen 5-325 mg tablet 1 tab PO TID PRN (Reason: pain) Qty: 12 RF: 0 No Action Victoza 2-Henri 0.6 mg/0.1 mL (18 mg/3 mL) pen injector 1.8 mg SUBCUT DAILY RF: 0 insulin aspart U-100 [Novolog PenFill U-100 Insulin] 100 unit/mL cartridge 10 unit SUBCUT TID RF: 0 digoxin 125 mcg (0.125 mg) tablet 125 mcg PO DAILY RF: 0 Geodon 40 mg capsule 40 mg PO 0700,1700 Qty: 60 RF: 2 lamotrigine [Lamictal] 100 mg tablet 100 mg PO DAILY 30 Days Qty: 30 RF: 2 diclofenac sodium 75 mg tablet,delayed release (DR/EC) 75 mg PO BID Qty: 14 RF: 0 metformin 1,000 mg Tablet 1,000 mg PO BID RF: 0 lisinopril 40 mg Tablet 40 mg PO DAILY RF: 0 Dexilant 30 mg Capsule,Biphase Delayed Releas 30 mg PO DAILY RF: 0 aspirin [Aspir-81] 81 mg Tablet,Delayed Release (Dr/Ec) 81 mg PO DAILY RF: 0 Lantus Solostar U-100 Insulin 100 unit/mL (3 mL) insulin pen 75 unit SUBCUT BID Qty: 15 RF: 0 Discharge Orders: Discharge ED (Routine); Ordered 06/03/20 Ordered By: Wyatt Barker Referrals: VIKAS PARRA, [employer] [Primary Care Provider] - Discharge Diet: Usual diet Discharge Activity: Increase activity as tolerated Patient Instructions: Back Pain (ED) Activity Restrictions/Additional Instructions: Activity as tolerated. Gentle stretching and range of motion exercises. Drink plenty of fluids. Use acetaminophen to help with pain and fever. Follow-up with primary care for further treatment. Return to the emergency room for chest pain or shortness of breath regarding your COVID-19 symptoms. Coding Level of Care Code ED Medical Dermatologist for Christin Fwmarvel Exam Comprehensive
[2020-06-03 20:27] VITALS: BP 191/115; PULSE 102; O2SAT 93
[2020-06-03 20:33] LABS: SARS Covid-2 Antigen Positive (Negative)
[2020-06-03] MEDS: HYDROcodone-acetaminophen 7.5-325 mg Tablet 1 TAB PO (21:23)
[2020-06-03 21:29] VITALS: BP 167/97; PULSE 92; O2SAT 92
== END 2020-06-03 21:42 | disposition home or self-care (01) ==
PROVIDERS: Emergency Medicine; Emergency Provider Nurse Practitioner Family; PCP Nurse Practitioner Family
DX: M51.36 Other intervertebral disc degeneration, lumbar region (principal); U07.1 COVID-19; Z79.4 Long term (current) use of insulin; Z79.82 Long term (current) use of aspirin; I10 Essential (primary) hypertension; F17.290 Nicotine dependence, other tobacco product, uncomplicated
CPT/HCPCS: 12345; 87426; 99281; 99283; 99291

== ENCOUNTER → 2020-06-06 08:47 | Outpatient (BNVA) | payer MEDICAID, SELFPAY ==
[2020-05-24 16:28] VITALS: BP 132/80; BMI 61.5
== END ==
PROVIDERS: PCP Nurse Practitioner Family; Visit Provider Counselor Mental Health
DX: F31.73 Bipolar disorder, in partial remission, most recent episode manic (principal); F50.81 Binge eating disorder; F32.9 Major depressive disorder, single episode, unspecified; F43.10 Post-traumatic stress disorder, unspecified
CPT/HCPCS: 90834

== ENCOUNTER → 2020-06-21 08:57 | Outpatient (BNVA) | payer MEDICAID, SELFPAY ==
[2020-05-24 16:28] VITALS: BP 132/80; BMI 61.5
== END ==
PROVIDERS: PCP Nurse Practitioner Family; Visit Provider Counselor Mental Health
DX: F31.73 Bipolar disorder, in partial remission, most recent episode manic (principal); F50.81 Binge eating disorder; F32.9 Major depressive disorder, single episode, unspecified; F43.10 Post-traumatic stress disorder, unspecified
CPT/HCPCS: 90832

== ENCOUNTER → 2020-07-11 09:07 | Outpatient (BNVA) | payer MEDICAID, SELFPAY ==
[2020-07-05 09:13] VITALS: BP 132/80; BMI 61.5
== END ==
PROVIDERS: PCP Nurse Practitioner Family; Visit Provider Counselor Mental Health
DX: F31.73 Bipolar disorder, in partial remission, most recent episode manic (principal); F50.81 Binge eating disorder; F32.9 Major depressive disorder, single episode, unspecified; F43.10 Post-traumatic stress disorder, unspecified
CPT/HCPCS: 90832

== ENCOUNTER 2020-08-02 14:15 | Emergency (ER) | payer MEDICAID, SELFPAY ==
[2020-07-05 09:13] VITALS: BP 132/80; BMI 61.5
[2020-08-02 14:29] VITALS: BP 120/85; PULSE 99; RESP 18; TEMP 37.4; O2SAT 95; BMI 59.1
--- NOTE | 2020-08-02 14:48 | XRR_ITS ---
PROCEDURE INFORMATION: Exam: XR Chest Exam date and time: 08/02/2020 2:49 PM Age: 39 years old Clinical indication: Chest pain; Type not specified; Additional info: Cp TECHNIQUE: Imaging protocol: XR of the chest Views: 1 view. COMPARISON: CR XR chest 1V portable [id number] 12/27/2019 5:38 PM FINDINGS: Lungs: Unremarkable. No consolidation. Pleural spaces: Unremarkable. No pleural effusion. No pneumothorax. Heart/Mediastinum: There is cardiomegaly for projection. Bones/joints: Unremarkable. XR/XR chest 1V portable [id number] IMPRESSION: 1. Cardiomegaly for projection 2. Otherwise No acute findings.
--- NOTE | 2020-08-02 14:48 | ECG_ITS ---
[facility] Test Date: 2020-08-02 Pat Name: Tyree Buckley Department: Room: Gender: Male Eligibility Services Representative: : 1980 Requested By: Rosa M Tadeo I Order Number: [id number] Reading MD: ELIEZER RUVALCABA Measurements Intervals [place] Rate: 99 P: 28 MT: 172 QRS: 47 QRSD: 102 T: 34 QT: 332 QTc: 427 Interpretive Statements SINUS RHYTHM Compared to ECG 12/27/2019 19:12:03 T-wave abnormality no longer present Electronically Signed On 08-02-2020 19:52:33 OFFICE ADMINISTRATOR by ELIEZER RUVALCABA [id number]
[2020-08-02 15:02] VITALS: BP 114/87; PULSE 88; RESP 18; O2SAT 96
--- NOTE | 2020-08-02 15:03 | PC.NURSE ---
patient c/o chest pain 09/10, tolerated pain at this time. no acute distress noted
[2020-08-02 15:14] LABS: Basophils % 0.7 %; Eosinophils # 0.1 10^3/uL (0.0-0.8); Eosinophils % 2.2 %; Hematocrit 45.3 % (42.0-52.0); Lymphocytes # 1.1 10^3/uL (0.8-4.8); Lymphocytes % 18.5 %; Mean Corpuscular HGB Conc 33.1 g/dL (30.0-36.0); Mean Corpuscular Hemoglobin 26.1 pg (28.0-34.0); Mean Corpuscular Volume 78.8 fL (80-94); Mean Platelet Volume 9.5 fL (7.4-10.4); Monocytes # 0.6 10^3/uL (0.2-0.9); Monocytes % 10.3 %; Neutrophils # 3.98 10^3/uL (1.8-7.7); Neutrophils % 67.5 %; Nucleated Red Blood Cells % 0 %; Platelet Count 232 10^3/cmm (130-400); Red Blood Count 5.75 10^6/uL (4.1-5.3); Red Cell Distribution Width 13.8 % (12.1-15.1); White Blood Count 5.9 10^3/uL (4.0-10.0)
[2020-08-02 15:17] LABS: Add Urine Microscopic? NO
[2020-08-02 15:40] LABS: Alanine Aminotransferase 38 U/L (0-41); Albumin Level 4.1 g/dL (3.5-5.2); Alkaline Phosphatase 82 IU/L (40-130); Aspartate Amino Transferase 27 U/L (0-40); Blood Urea Nitrogen 5 mg/dL (6-20); Calcium 8.9 mg/dL (8.5-10.5); Carbon Dioxide 24 mmol/L (22-29); Chloride 95 mmol/L (98-107); Globulin 2.6 g/dL (1.3-4.6); Glomerular Filtration Rate 124.9 mL/min (90-130); Glucose 223 mg/dL (65-115); NT Pro B Type Natriuretic Pept 173 pg/mL (0-125); Osmolality Calculated 276 mOsm/kg (285-295); Sodium 131 mmol/L (136-145); Total Bilirubin 0.9 mg/dL (0.15-1.2); Total Protein 6.7 g/dL (6.6-8.7)
[2020-08-02 15:47] LABS: Troponin(5th) Baseline 8 ng/L (0-15)
[2020-08-02 15:50] LABS: Anion Gap 15.4 (5-19)
[2020-08-02 15:51] LABS: Potassium 3.4 mmol/L (3.5-5.1)
[2020-08-02] MEDS: nitroglycerin 1 gm/inch oint Pkt 1 INCH TOPICAL (15:54)
--- NOTE | 2020-08-02 15:56 | PC.NURSE ---
patient stated he received aspirin by EMT prior to ER, c/o chest pain 08/10 at this time. no acute distress noted
[2020-08-02 15:59] VITALS: BP 126/67; PULSE 96; RESP 20; O2SAT 97
[2020-08-02 16:01] LABS: Bilirubin Urine Neg (Negative); Blood Urine Neg (Negative); Glucose Urine UA 1+ (Normal); Ketones Urine Negative (Negative); Leukocyte Esterase Urine Negative (Negative); Nitrate Urine Negative (Negative); Protein Urine Neg (Negative); Sulfosalicylic Acid Urine Negative (Negative); Urine Appearance Clear (CLEAR); Urine Color Yellow (Yellow); Urobilinogen Urine Norm (Negative); pH Urine 8 (5-7)
--- NOTE | 2020-08-02 16:05 | ED_ITS ---
HPI - Chest Pain General: Chief Complaint: Chest Pain Stated Complaint: CHEST PAIN Time Seen by Provider: 08/02/20 14:21 Source: patient Mode of arrival: EMS Limitations: no limitations History of Present Illness: MD complaint: chest pain Onset (ago): hour(s) (10) Timing of current episode: constant Onset: during rest Pain location: left chest Pain radiation: none Severity: moderate Quality: aching Relieving factors: nothing Exacerbating factors: nothing Associated symptoms: Reports nausea; Deny abdominal pain, diaphoresis, dyspnea, fever(s), leg edema, palpitations, sense of impending doom, syncope or vomiting Treatment prior to arrival: aspirin Review of Systems General: Reports: 10 or more systems reviewed and unremarkable except in HPI and below Const: Denies: fever(s) or diaphoresis Eyes: Denies: change in vision or blurry vision ENMT: Denies: throat pain, enlarged tonsils, odynophagia, hoarseness, mouth pain or swelling of lips/tongue Card: Denies: palpitations or syncope Resp: Denies: dyspnea GI: Reports: nausea; Denies: abdominal pain or vomiting : Denies: flank pain, dysuria, urinary frequency, urinary urgency or urinary hesitancy Musc: Denies: neck pain, back pain or extremity swelling Skin/Breast: Denies: rash, pruritus or erythema Neuro: Denies: headache(s), numbness in extremities or weakness in extremities Endo: Denies: polyuria, polydipsia or tired all the time PFSH ED PFSH: Medical History (Updated 08/02/20 @ 18:09 by Rosa M Tadeo MD, [facility]) Alcohol dependence, in remission Benign essential HTN Binge eating disorder Bipolar disorder, in partial remission, most recent episode manic DJD (degenerative joint disease) Dyspnea on exertion Gallstones GERD (gastroesophageal reflux disease) GI disease Morbid obesity Morbid obesity Nephrolithiasis Nephropathy Obstructive sleep apnea Posttraumatic stress disorder Supraventricular tachycardia Tinea cruris Surgical History (Reviewed 08/02/20 @ 16:13 by Rosa M Tadeo MD, [facility]) H/O oral surgery S/P adenoidectomy S/P cholecystectomy S/P hernia repair S/P knee surgery S/P myringotomy with insertion of tube S/P tendon repair S/P vasectomy Social History (Reviewed 08/02/20 @ 16:13 by Rosa M Tadeo MD, [facility]) Smoking and tobacco status: current every day smoker e-cigarettes E-Cigarette Details: vaporizer device and with nicotine Smoking risk assessment/counseling performed?: Yes Tobacco counseling given: counseling >3 minutes Alcohol intake: former Year of sobriety/quit date alcohol: 11mo Adopted: Yes Caregiver/support person: No Lives independently: Yes Household members: spouse Housing: Apartment Marital status: Number of children: 2 Highest education level completed: Some College, No Degree service: Yes status: Medically Discharged/Retired branch: [employer] Current occupational status: disabled Pets and animals: Yes Pets & animals: dog(s) History of recent travel: No Leisure activites: games Sexually active: Yes Current gender identity: Male Leda/Sabianist: None Special leda needs: No Agree to transfusion: Yes Financial difficulty paying for basics: Not Very Hard Physical Exam Const: COMMON NORMALS: no acute distress, patient oriented x3, no limitations, healthy appearing, alert and well nourished NUTRITIONAL APPEARANCE: obese morbidly obese HENMT: COMMON NORMALS: normocephalic, atraumatic and moist oral mucous membranes HEAD & SCALP: normocephalic and atraumatic Eye: COMMON NORMALS: Equal, round and reactive pupils present, EOMs intact bilaterally, conjunctivae normal and no scleral icterus CONJUNCTIVA: Yes conjunctivae normal PUPIL: Yes Equal, round and reactive pupils present Neck/C-Spine: COMMON NORMALS: no meningeal signs and no JVD Resp: COMMON NORMALS: normal respiratory effort, No retractions, No use of accessory muscles, clear to auscultation bilaterally and percussion normal AUSCULTATION: clear to auscultation bilaterally PERCUSSION: percussion normal Cardio: COMMON NORMALS: no JVD, regular rate, regular rhythm, S1 normal heart sound present, S2 normal heart sound present, No gallops present (Cardio), No clicks present (Cardio), No murmurs present (Cardio), No rub (Cardio) and Peripheral pulses 2+ throughout RATE: regular rate RHYTHM: regular rhythm HEART SOUNDS: S1 normal heart sound present and S2 normal heart sound present PERIPHERAL PULSES: Peripheral pulses 2+ throughout GI: COMMON NORMALS: Normal to inspection, nondistended, normoactive bowel sounds present, Soft to palpation, non-tender, No hepatosplenomegaly present, no masses and no bruits PALPATION: Yes Soft to palpation and Yes No hepatosplenomegaly present Extremity: COMMON NORMALS: normal to inspection, full ROM, capillary refill normal, no calf tenderness and no pedal edema Neuro: COMMON NORMALS: patient oriented x3 SENSORIUM/ORIENTATION: Yes alert MENINGEAL SIGNS: Yes no meningeal signs Skin: COMMON NORMALS: no rashes or lesions noted, no wounds, turgor normal, no jaundice, no petechiae and no mottling GENERAL SKIN EXAM: no rashes or lesions noted and turgor normal Course Reevaluation(s): Reevaluation #1: Discussed his lab and imaging findings with him. Negative for acute findings. Negative high-sensitivity troponin x2. We will discharge him home with no new orders. He voiced understanding and is in agreement with the plan. Time: 18:09 Vital Signs: Vital signs: Vital Signs Temperature 99.4 F 08/02/20 14:29 Pulse Rate 20 L 08/02/20 18:27 Respiratory Rate 86 H 08/02/20 18:27 Blood Pressure 101/59 08/02/20 18:27 Pulse Oximetry 96 08/02/20 18:27 MDM - Chest Pain MDM Narrative: Medical decision making narrative: 39-year-old male who presents to the emergency department with chest pain. Evaluation in the emergency department is unremarkable, he is discharged home with no new orders. Heart score is 2 for risk factors, low risk for a major adverse cardiac event in the next 6 weeks. He is discharged home with no new orders. Medical Records: Attestation: I reviewed the patient's medical records. Lab Data: Attestation: I reviewed the patient's lab results. Labs: Lab Results 08/02/20 08/02/20 08/02/20 Range/Units 14:50 14:58 14:58 WBC 5.9 (4.0-10.0) 10^3/ uL RBC 5.75 H (4.1-5.3) 10^6/u L Hgb 15.0 (11.7-16.6) g/dL Hct 45.3 (42.0-52.0) % MCV 78.8 L (80-94) fL MCH 26.1 L (28.0-34.0) pg MCHC 33.1 (30.0-36.0) g/dL RDW 13.8 (12.1-15.1) % Plt Count 232 (130-400) 10^3/c mm MPV 9.5 (7.4-10.4) fL Neut % (Auto) 67.5 % Lymph % (Auto) 18.5 % Cooke % (Auto) 10.3 % Eos % (Auto) 2.2 % Baso % (Auto) 0.7 % Neut # (Auto) 3.98 (1.8-7.7) 10^3/u L Lymph # (Auto) 1.1 (0.8-4.8) 10^3/u L Cooke # (Auto) 0.6 (0.2-0.9) 10^3/u L Eos # (Auto) 0.1 (0.0-0.8) 10^3/u L Baso # (Auto) 0.0 (0.0-0.1) 10^3/u L Nucleated RBC % (a uto) 0 % Nucleated RBCs # 0.0 /100WBC Sodium 131 L (136-145) mmol/L Potassium 3.4 L (3.5-5.1) mmol/L Chloride 95 L (98-107) mmol/L Carbon Dioxide 24 (22-29) mmol/L Anion Gap 15.4 (5-19) BUN 5 L (6-20) mg/dL Creatinine 0.7 (0.7-1.2) mg/dL GFR Calculation 124.9 (90-130) mL/min Glucose 223 H (65-115) mg/dL Calculated Osmolal ity 276 L (285-295) mOsm/k g Calcium 8.9 (8.5-10.5) mg/dL Total Bilirubin 0.9 (0.15-1.2) mg/dL AST 27 (0-40) U/L ALT 38 (0-41) U/L Alkaline Phosphata se 82 (40-130) IU/L Troponin T Baselin e (0-15) ng/L Troponin T 120 Min rosanna (0-15) ng/L Delta Troponin T (0-10) ABS# NT-Pro-B Natriuret Pep 173 H (0-125) pg/mL Total Protein 6.7 (6.6-8.7) g/dL Albumin 4.1 (3.5-5.2) g/dL Globulin 2.6 (1.3-4.6) g/dL Urine Color Yellow (Yellow) Urine Appearance Clear (CLEAR) Urine pH 8 H (5-7) Ur Specific Gravit y 1.010 (1.005-1.030) Urine Protein Neg (Negative) Urine Glucose (UA) 1+ (Normal) Urine Ketones Negative (Negative) Urine Blood Neg (Negative) Urine Nitrate Negative (Negative) Urine Bilirubin Neg (Negative) Prot Sulfosalicyli c Acd Negative (Negative) Urine Urobilinogen Norm (Negative) mg/dL Ur Leukocyte Bethanie ase Negative (Negative) 08/02/20 08/02/20 Range/Units 14:58 16:56 WBC (4.0-10.0) 10^3/ uL RBC (4.1-5.3) 10^6/u L Hgb (11.7-16.6) g/dL Hct (42.0-52.0) % MCV (80-94) fL MCH (28.0-34.0) pg MCHC (30.0-36.0) g/dL RDW (12.1-15.1) % Plt Count (130-400) 10^3/c mm MPV (7.4-10.4) fL Neut % (Auto) % Lymph % (Auto) % Cooke % (Auto) % Eos % (Auto) % Baso % (Auto) % Neut # (Auto) (1.8-7.7) 10^3/u L Lymph # (Auto) (0.8-4.8) 10^3/u L Cooke # (Auto) (0.2-0.9) 10^3/u L Eos # (Auto) (0.0-0.8) 10^3/u L Baso # (Auto) (0.0-0.1) 10^3/u L Nucleated RBC % (a uto) % Nucleated RBCs # /100WBC Sodium (136-145) mmol/L Potassium (3.5-5.1) mmol/L Chloride (98-107) mmol/L Carbon Dioxide (22-29) mmol/L Anion Gap (5-19) BUN (6-20) mg/dL Creatinine (0.7-1.2) mg/dL GFR Calculation (90-130) mL/min Glucose (65-115) mg/dL Calculated Osmolal ity (285-295) mOsm/k g Calcium (8.5-10.5) mg/dL Total Bilirubin (0.15-1.2) mg/dL AST (0-40) U/L ALT (0-41) U/L Alkaline Phosphata se (40-130) IU/L Troponin T Baselin e 8 (0-15) ng/L Troponin T 120 Min rosanna 10.95 (0-15) ng/L Delta Troponin T 2.95 (0-10) ABS# NT-Pro-B Natriuret Pep (0-125) pg/mL Total Protein (6.6-8.7) g/dL Albumin (3.5-5.2) g/dL Globulin (1.3-4.6) g/dL Urine Color (Yellow) Urine Appearance (CLEAR) Urine pH (5-7) Ur Specific Gravit y (1.005-1.030) Urine Protein (Negative) Urine Glucose (UA) (Normal) Urine Ketones (Negative) Urine Blood (Negative) Urine Nitrate (Negative) Urine Bilirubin (Negative) Prot Sulfosalicyli c Acd (Negative) Urine Urobilinogen (Negative) mg/dL Ur Leukocyte Bethanie ase (Negative) Imaging Data^: CXR: Attestation: I personally reviewed and interpreted this imaging study as follows: Radiologist's impression: [address] [address] XRay Report Signed Patient: Tyree Buckley #: [id number] : 1980Acct#:[id number] Age/Sex: 39 / MADM Date: 08/02/20 Loc: ERRoom/Bed: Attending Dr: Ordering Provider/Ordering MD: Rosa M Tadeo MD, [facility] Date of Service: 08/02/20 Procedure(s): XR chest 1V portable [id number] Accession Number(s): [id number] Report Number: [id number] PROCEDURE INFORMATION: Exam: XR Chest Exam date and time: 08/02/2020 2:49 PM Age: 39 years old Clinical indication: Chest pain; Type not specified; Additional info: Cp TECHNIQUE: Imaging protocol: XR of the chest Views: 1 view. COMPARISON: CR XR chest 1V portable [id number] 12/27/2019 5:38 PM FINDINGS: Lungs: Unremarkable. No consolidation. Pleural spaces: Unremarkable. No pleural effusion. No pneumothorax. Heart/Mediastinum: There is cardiomegaly for projection. Bones/joints: Unremarkable. XR/XR chest 1V portable [id number] IMPRESSION: 1. Cardiomegaly for projection 2. Otherwise No acute findings. Dictated By:Leo Cornelius Signed By:Inna Cornelius Date/Time:08/02/201536 DD/ 34 EKG Data^: EKG 1: Attestation: I personally reviewed and interpreted this EKG as follows: EKG interpretation date: 08/02/20 EKG interpretation time: 14:43 Prior EKG tracings: not available for review Interpretation: Normal sinus rhythm. Heart rate 99 bpm. Normal axis. No ST changes. EKG 2: Attestation: I personally reviewed and interpreted this EKG as follows: EKG interpretation date: 08/02/20 EKG interpretation time: 16:57 Prior EKG tracings: available for review Interpretation: Normal sinus rhythm. Heart rate 89 bpm. Normal axis. No ST changes. No significant change from earlier today Discharge Plan Discharge Patient Disposition: Home Clinical Impression: Chest pain, non-cardiac Condition: Stable Prescriptions: Continued Victoza 2-Henri 0.6 mg/0.1 mL (18 mg/3 mL) pen injector 1.8 mg SUBCUT QAM RF: 0 insulin aspart U-100 [Novolog PenFill U-100 Insulin] 100 unit/mL cartridge 10 unit SUBCUT TID RF: 0 digoxin 125 mcg (0.125 mg) tablet 125 mcg PO QAM RF: 0 metformin 1,000 mg Tablet 1,000 mg PO BID RF: 0 lisinopril 40 mg Tablet 40 mg PO QAM RF: 0 Lantus Solostar U-100 Insulin 100 unit/mL (3 mL) insulin pen 75 unit SUBCUT BID Qty: 15 RF: 0 aspirin 81 mg Tablet,Delayed Release (Dr/Ec) 81 mg PO QAM RF: 0 amlodipine 10 mg tablet 10 mg PO DAILY RF: 0 metoprolol tartrate 50 mg Tablet 50 mg PO BID RF: 0 ProAir HFA 90 mcg/actuation Hfa Aerosol Inhaler 2 puff INHALATION Q6H PRN (Reason: Shortness Of Breath) RF: 0 Lamictal 100 mg tablet 100 mg PO QAM RF: 0 Discharge Orders: Discharge ED (Routine); Ordered 08/02/20 Ordered By: Rosa M Tadeo Referrals: Toña Ivey, SOLOIST DANCER [Primary Care Provider] - 1-3 days Discharge Diet: Usual diet Discharge Activity: Increase activity as tolerated Patient Instructions: Noncardiac Chest Pain (ED) Activity Restrictions/Additional Instructions: Return for any new or worsening symptoms. Follow-up with your primary care provider within 3 days. Continue your home medications as prescribed. Coding Level of Care Code ED Wheel Aligner for Christin Fwd Exam Comprehensive
[2020-08-02 16:28] VITALS: BP 105/58; PULSE 90; RESP 20; O2SAT 96
--- NOTE | 2020-08-02 16:28 | PC.NURSE ---
patient denied any chest pain at this time.
--- NOTE | 2020-08-02 16:48 | ECG_ITS ---
[facility] Test Date: 2020-08-02 Pat Name: Tyree Buckley Department: Room: Gender: Male Sales Correspondence Clerk: : 1980 Requested By: Rosa M Tadeo I Order Number: [id number] Reading MD: ELIEZER RUVALCABA Measurements Intervals [place] Rate: 89 P: 53 SD: 208 QRS: 43 QRSD: 106 T: 42 QT: 357 QTc: 435 Interpretive Statements SINUS RHYTHM Compared to ECG 08/02/2020 14:43:11 No significant changes Electronically Signed On 08-02-2020 20:00:54 AOC OPERATIONS INTELLIGENCE OFFICER by ELIEZER RUVALCABA [id number]
--- NOTE | 2020-08-02 17:20 | PC.PHAR ---
pt states he takes care of his own medications-danny states they havent filled insulin since jan and feb 2020-pts metoprolol hasnt been filled since 02/01/20-pts other bp medcations were filled in apr 2020 for 30d/s-pts digoxin last filled 04/26/20 30d/s-pt states he hasnt had filled for a while because he has a build up of some of his medications
[2020-08-02 17:48] LABS: Troponin 5 2HR 10.95 ng/L (0-15); Troponin 5 2HR Delta 2.95 ABS# (0-10)
[2020-08-02 18:27] VITALS: BP 101/59; PULSE 20; RESP 86; O2SAT 96
== END 2020-08-02 18:30 | disposition home or self-care (01) ==
PROVIDERS: Emergency Provider Family Medicine; PCP Nurse Practitioner Family
DX: R07.89 Other chest pain (principal); Z79.4 Long term (current) use of insulin; Z79.82 Long term (current) use of aspirin; I10 Essential (primary) hypertension; F17.290 Nicotine dependence, other tobacco product, uncomplicated
CPT/HCPCS: 71045; 80053; 81003; 83880; 84484; 85025; 93005; 99284

== ENCOUNTER → 2020-08-10 11:35 | Outpatient (BNVA) | payer MEDICAID, SELFPAY ==
[2020-07-05 09:13] VITALS: BP 132/80; BMI 61.5
== END ==
PROVIDERS: PCP Nurse Practitioner Family; Visit Provider Counselor Mental Health
DX: F31.73 Bipolar disorder, in partial remission, most recent episode manic (principal); F50.81 Binge eating disorder; F32.9 Major depressive disorder, single episode, unspecified; F43.10 Post-traumatic stress disorder, unspecified
CPT/HCPCS: 90834; 90832

== ENCOUNTER → 2020-08-29 07:58 | Outpatient (BNVA) | payer MEDICAID, SELFPAY ==
[2020-07-05 09:13] VITALS: BP 132/80; BMI 61.5
== END ==
PROVIDERS: PCP Nurse Practitioner Family; Visit Provider Counselor Mental Health
DX: F31.73 Bipolar disorder, in partial remission, most recent episode manic (principal); F43.10 Post-traumatic stress disorder, unspecified; F50.81 Binge eating disorder; F32.9 Major depressive disorder, single episode, unspecified
CPT/HCPCS: 90791

== ENCOUNTER → 2020-09-05 07:33 | Outpatient (BNVA) | payer MEDICAID, SELFPAY ==
[2020-08-29 12:34] VITALS: BP 132/80; BMI 61.5
== END ==
PROVIDERS: PCP Nurse Practitioner Family; Visit Provider Counselor Mental Health
DX: F31.73 Bipolar disorder, in partial remission, most recent episode manic (principal); F50.81 Binge eating disorder; F32.0 Major depressive disorder, single episode, mild; F43.10 Post-traumatic stress disorder, unspecified
CPT/HCPCS: 90834

== ENCOUNTER → 2020-09-19 07:50 | Outpatient (BNVA) | payer MEDICAID, SELFPAY ==
[2020-09-16 13:12] VITALS: BP 132/80; BMI 61.5
== END ==
PROVIDERS: PCP Nurse Practitioner Family; Visit Provider Counselor Mental Health
DX: F31.73 Bipolar disorder, in partial remission, most recent episode manic (principal); F50.81 Binge eating disorder; F32.9 Major depressive disorder, single episode, unspecified; F43.10 Post-traumatic stress disorder, unspecified
CPT/HCPCS: 90834

== ENCOUNTER → 2020-10-03 07:51 | Outpatient (BNVA) | payer MEDICAID, SELFPAY ==
[2020-09-16 13:12] VITALS: BP 132/80; BMI 61.5
== END ==
PROVIDERS: PCP Nurse Practitioner Family; Visit Provider Counselor Mental Health
DX: F31.73 Bipolar disorder, in partial remission, most recent episode manic (principal); F50.81 Binge eating disorder; F32.9 Major depressive disorder, single episode, unspecified; F43.10 Post-traumatic stress disorder, unspecified
CPT/HCPCS: 90832

== ENCOUNTER → 2020-10-24 08:20 | Outpatient (BNVA) | payer MEDICAID, SELFPAY ==
[2020-09-16 13:12] VITALS: BP 132/80; BMI 61.5
== END ==
PROVIDERS: PCP Nurse Practitioner Family; Visit Provider Counselor Mental Health
DX: F31.73 Bipolar disorder, in partial remission, most recent episode manic (principal); F50.81 Binge eating disorder; F32.9 Major depressive disorder, single episode, unspecified; F43.10 Post-traumatic stress disorder, unspecified
CPT/HCPCS: 90832

== ENCOUNTER 2020-12-12 09:18 | Outpatient (RCR) | payer OTHER, SELFPAY ==
[2020-09-16 13:12] VITALS: BP 132/80; BMI 61.5
== END 2020-12-31 23:59 | disposition home or self-care (01) ==
LOC: SPT 09:18
PROVIDERS: PCP Nurse Practitioner Family; Referring Provider Orthopaedic Surgery; Visit Provider Orthopaedic Surgery
DX: S46.001D Unspecified injury of muscle(s) and tendon(s) of the rotator cuff of right shoulder, subsequent encounter (principal); X58.XXXD Exposure to other specified factors, subsequent encounter
CPT/HCPCS: 97110; 97161; 97530

== ENCOUNTER 2020-12-12 09:20 | Outpatient (RCR) | payer OTHER, SELFPAY ==
[2020-09-16 13:12] VITALS: BP 132/80; BMI 61.5
== END 2020-12-31 23:59 | disposition home or self-care (01) ==
LOC: SPT 09:20
PROVIDERS: PCP Nurse Practitioner Family; Referring Provider Family Medicine; Visit Provider Family Medicine
DX: M25.579 Pain in unspecified ankle and joints of unspecified foot (principal)
CPT/HCPCS: 97110; 97162

== ENCOUNTER → 2020-12-23 08:39 | Outpatient (BNVA) | payer OTHER, MEDICAID, SELFPAY ==
[2020-09-16 13:12] VITALS: BP 132/80; BMI 61.5
== END ==
PROVIDERS: PCP Nurse Practitioner Family; Visit Provider Counselor Mental Health
DX: F31.73 Bipolar disorder, in partial remission, most recent episode manic (principal); F50.81 Binge eating disorder; F32.9 Major depressive disorder, single episode, unspecified; F43.10 Post-traumatic stress disorder, unspecified
CPT/HCPCS: 90834

== ENCOUNTER 2021-01-01 06:00 | Outpatient (RCR) | payer OTHER, SELFPAY ==
[2020-09-16 13:12] VITALS: BP 132/80; BMI 61.5
== END 2021-01-31 23:59 | disposition home or self-care (01) ==
LOC: SPT 06:00
PROVIDERS: PCP Nurse Practitioner Family; Referring Provider Family Medicine; Visit Provider Family Medicine
DX: M25.579 Pain in unspecified ankle and joints of unspecified foot (principal)
CPT/HCPCS: 97110

== ENCOUNTER 2021-01-01 06:00 | Outpatient (RCR) | payer OTHER, MEDICAID, SELFPAY ==
[2020-09-16 13:12] VITALS: BP 132/80; BMI 61.5
== END 2021-01-31 23:59 | disposition home or self-care (01) ==
LOC: SPT 06:00
PROVIDERS: PCP Nurse Practitioner Family; Referring Provider Orthopaedic Surgery; Visit Provider Orthopaedic Surgery
DX: S46.001D Unspecified injury of muscle(s) and tendon(s) of the rotator cuff of right shoulder, subsequent encounter (principal); X58.XXXD Exposure to other specified factors, subsequent encounter
CPT/HCPCS: 97110; 97164

== ENCOUNTER 2021-01-12 20:27 | Emergency (ER) | payer OTHER, MEDICAID, SELFPAY ==
[2020-09-16 13:12] VITALS: BP 132/80; BMI 61.5
[2021-01-12 20:51] VITALS: BP 189/109; PULSE 87; RESP 18; TEMP 37.1; O2SAT 98; BMI 58.9
--- NOTE | 2021-01-12 21:31 | W.ED.EXTPRO ---
HPI - Extremity Problem General: Chief complaint: Extremity Problem,Nontraumatic Stated complaint: LEFT LEG INJURY Time Seen by Provider: 01/12/21 21:31 History of Present Illness: HPI Narrative: 40-year-old male patient comes in with complaints of discomfort and change in color to the left lower leg. Patient has a old laceration to the left lower leg that he reports a change in the coloration of the scarring over the last 2 days. Patient also reports some increased pain and discomfort to the area. Patient appears well. Patient appears no acute distress. Patient is morbidly obese with diabetes mellitus. Review of Systems General: Reports: 10 or more systems reviewed and unremarkable except in HPI and below Musc: Reports: other (Left lower leg pain) PFSH ED PFSH: Medical History Alcohol dependence, in remission Benign essential HTN Binge eating disorder Bipolar disorder, in partial remission, most recent episode manic DJD (degenerative joint disease) Dyspnea on exertion Gallstones GERD (gastroesophageal reflux disease) GI disease Morbid obesity Morbid obesity Nephrolithiasis Nephropathy Obstructive sleep apnea Posttraumatic stress disorder Supraventricular tachycardia Tinea cruris Surgical History H/O oral surgery S/P adenoidectomy S/P cholecystectomy S/P hernia repair S/P knee surgery S/P myringotomy with insertion of tube S/P tendon repair S/P vasectomy Family History Other Adopted Social History Smoking and tobacco status: current every day smoker e-cigarettes E-Cigarette Details: vaporizer device and with nicotine Smoking risk assessment/counseling performed?: Yes Tobacco counseling given: counseling >3 minutes Alcohol intake: former Year of sobriety/quit date alcohol: 11mo Adopted: Yes Caregiver/support person: No Lives independently: Yes Household members: spouse Housing: Apartment Marital status: Number of children: 2 Highest education level completed: Some College, No Degree service: Yes status: Medically Discharged/Retired branch: [employer] Current occupational status: disabled Pets and animals: Yes Pets & animals: dog(s) History of recent travel: No Leisure activites: games Sexually active: Yes Current gender identity: Male Leda/Amish: None Special leda needs: No Agree to transfusion: Yes Financial difficulty paying for basics: Not Very Hard Physical Exam Const: COMMON NORMALS: no acute distress and patient oriented x3 GENERAL APPEARANCE: cooperative HENMT: COMMON NORMALS: normocephalic and Normal external nose present HEAD & SCALP: normal to inspection and normocephalic NOSE: Normal external nose present Eye: GENERAL EYE: appearance normal, both eyes and all related structures Neck/C-Spine: COMMON NORMALS: full ROM Lymph: LYMPHATIC: no lymphadenopathy noted Chest: COMMONS NORMALS: normal inspection of the chest Resp: COMMON NORMALS: normal respiratory effort EFFORT & INSPECTION: Yes able to speak in complete sentences Cardio: COMMON NORMALS: regular rate and regular rhythm RATE: regular rate RHYTHM: regular rhythm GI: COMMON NORMALS: non-tender Back/Pelvis: COMMON NORMALS: thoracic and lumbar spine normal to inspection Extremity: NARRATIVE EXTREMITY EXAM: Mild redness and tenderness noted to the posterior left lower leg. Distal pulses intact. Neuro: COMMON NORMALS: patient oriented x3 and moves all extremities Psych: COMMON NORMALS: mental status grossly normal and cooperative Skin: COMMON NORMALS: no rashes or lesions noted GENERAL SKIN EXAM: no rashes or lesions noted Course Vital Signs: Vital signs: Vital Signs Temperature 98.7 F 01/12/21 20:51 Pulse Rate 87 01/12/21 20:51 Respiratory Rate 18 01/12/21 20:51 Blood Pressure 189/109 01/12/21 20:51 Pulse Oximetry 98 01/12/21 20:51 MDM - Extremity (Nontraumatic) MDM Narrative: Medical decision making narrative: Patient came in with increased discomfort to the left lower leg with change in coloration of the scar from a previous old injury. On exam patient has tenderness at the area of scarring. No obvious significant redness or fluctuation in the tissue is noted. Distal pulses are intact. No popliteal angle pain is noted. No significant swelling is noted to the extremity. Differential diagnosis includes but not limited to cellulitis, DVT, muscle strain. X-ray noted no significant abnormality or sign of fracture. No sign of DVT was noted. Due to the patient's history of diabetes mellitus I am concerned for a mild cellulitis we will cover with cephalexin 4 times a day for the next 7 days. Patient will also use the mupirocin ointment to the scarred area. Patient reported understanding and agreed to plan. Discharge Plan Discharge Patient Disposition: Home Clinical Impression: Cellulitis Qualifiers: Site of cellulitis: extremity Site of cellulitis of extremity: lower extremity Laterality: left Qualified Code(s): L03.116 - Cellulitis of left lower limb Condition: Stable Prescriptions: New cephalexin 500 mg capsule 500 mg PO QID 7 Days Qty: 28 RF: 0 mupirocin 2 % ointment 1 applic topical BID Qty: 22 RF: 0 No Action Victoza 2-Henri 0.6 mg/0.1 mL (18 mg/3 mL) pen injector 1.8 mg SUBCUT QAM RF: 0 insulin aspart U-100 [Novolog PenFill U-100 Insulin] 100 unit/mL cartridge 10 unit SUBCUT TID RF: 0 digoxin 125 mcg (0.125 mg) tablet 125 mcg PO QAM RF: 0 pantoprazole 20 mg tablet,delayed release (DR/EC) 20 mg PO DAILY RF: 0 simvastatin 20 mg tablet 20 mg PO DAILY RF: 0 isosorbide mononitrate 30 mg tablet extended release 24 hr 30 mg PO DAILY 30 Days Qty: 30 RF: 5 metformin 1,000 mg Tablet 1,000 mg PO BID RF: 0 lisinopril 40 mg Tablet 40 mg PO QAM RF: 0 Lantus Solostar U-100 Insulin 100 unit/mL (3 mL) insulin pen 75 unit SUBCUT BID Qty: 15 RF: 0 aspirin 81 mg Tablet,Delayed Release (Dr/Ec) 81 mg PO QAM RF: 0 amlodipine 10 mg tablet 10 mg PO DAILY RF: 0 Lamictal 100 mg tablet 100 mg PO QAM RF: 0 metoprolol tartrate 50 mg tablet 100 mg PO BID RF: 0 Discharge Orders: Discharge ED (Routine); Ordered 01/12/21 Ordered By: Wyatt Barker Referrals: Toña Ivey, GEOSPATIAL IMAGERY INTELLIGENCE ANALYST [Primary Care Provider] - Discharge Diet: Usual diet Discharge Activity: Increase activity as tolerated Patient Instructions: Cellulitis (ED), Opioid Safety Activity Restrictions/Additional Instructions: Home and rest. Elevate leg. Take antibiotics 4 times a day for the next 7 days. Use antibiotic ointment to the wound site twice a day for the next 7 days. Drink plenty of water with medication. Follow-up with primary care in 1 week for recheck. Return to the ER for worsening redness and swelling or high fever. Coding Level of Care Code ED Corporate General Manager for Christin Chang
--- NOTE | 2021-01-12 21:47 | XRR_ITS ---
PROCEDURE INFORMATION: Exam: XR Left Tibia and Fibula Exam date and time: 01/12/2021 9:47 PM Age: 40 years old Clinical indication: Pain; Lower leg; Left TECHNIQUE: Imaging protocol: XR Left tibia and fibula. Views: 2 views. COMPARISON: No relevant prior studies available. FINDINGS: Bones/joints: No fracture or other acute osseous abnormality. Soft tissues: Mild soft tissue edema. XR/XR tibia fibula LT 2V [id number] IMPRESSION: 1. Mild soft tissue edema. 2. No acute fracture demonstrated.
[2021-01-12] MEDS: cephALEXin 500 mg Capsule PO (22:27)
[2021-01-12 22:44] VITALS: PULSE 89; RESP 18; TEMP 37.1; O2SAT 98
== END 2021-01-12 22:40 | disposition home or self-care (01) ==
PROVIDERS: Emergency Provider Nurse Practitioner Family; PCP Nurse Practitioner Family
DX: L03.116 Cellulitis of left lower limb (principal); I10 Essential (primary) hypertension; E11.21 Type 2 diabetes mellitus with diabetic nephropathy; E66.01 Morbid (severe) obesity due to excess calories; F17.210 Nicotine dependence, cigarettes, uncomplicated; Z79.4 Long term (current) use of insulin
CPT/HCPCS: 73590; 99283

== ENCOUNTER → 2021-01-19 08:40 | Outpatient (BNVA) | payer OTHER, MEDICAID, SELFPAY ==
[2020-09-16 13:12] VITALS: BP 132/80; BMI 61.5
== END ==
PROVIDERS: PCP Nurse Practitioner Family; Visit Provider Counselor Mental Health
DX: F31.73 Bipolar disorder, in partial remission, most recent episode manic (principal); F50.81 Binge eating disorder; F32.9 Major depressive disorder, single episode, unspecified; F43.10 Post-traumatic stress disorder, unspecified
CPT/HCPCS: 90834

== ENCOUNTER 2021-01-24 18:03 | Emergency (ER) | payer OTHER, MEDICAID, SELFPAY ==
[2020-09-16 13:12] VITALS: BP 132/80; BMI 61.5
--- NOTE | 2021-01-24 18:16 | ECG_ITS ---
[facility] Test Date: 2021-01-24 Pat Name: Tyree Buckley Department: Room: Gender: Male Curriculum Coordinator: : 1980 Requested By: Nancy Vance Order Number: [id number] Hermes MD: Munir Najera M.D. Measurements Intervals [place] Rate: 73 P: 57 MA: 236 QRS: 30 QRSD: 83 T: 28 QT: 375 QTc: 414 Interpretive Statements SINUS RHYTHM WITH FIRST DEGREE AV BLOCK POSSIBLE ANTERIOR MYOCARDIAL INFARCTION , PROBABLY OLD [30 ms Q WAVE IN V3/V4, OR R < 0.2 mV IN V4] Compared to ECG 01/24/2021 18:17:49 Myocardial infarct finding now present Electronically Signed On 01-24-2021 21:38:50 CDT by Munir Najera M.D. [id number]
--- NOTE | 2021-01-24 18:16 | XRR_ITS ---
PROCEDURE INFORMATION: Exam: XR Chest Exam date and time: 01/24/2021 6:16 PM Age: 40 years old Clinical indication: Sternal or substernal pain; Patient HX: Chest pain x today; Additional info: Cp TECHNIQUE: Imaging protocol: XR of the chest. Views: 1 view. COMPARISON: CR XR chest 1V portable [id number] 08/02/2020 2:57 PM FINDINGS: Lungs: Lungs are clear. Pleural spaces: There is no pleural effusion or pneumothorax. Heart/Mediastinum: There is moderate cardiac enlargement. Bones/joints: Bones are unremarkable. XR/XR chest 1V portable [id number] IMPRESSION: No acute findings.
[2021-01-24 18:20] VITALS: BP 127/76; PULSE 78; RESP 18; TEMP 36.8; O2SAT 94
--- NOTE | 2021-01-24 20:16 | ECG_ITS ---
[facility] Test Date: 2021-01-24 Pat Name: Tyree Buckley Department: Room: Gender: Male Pallet Stone Inserter: : 1980 Requested By: Nancy Vance Order Number: [id number] Hermes MD: Munir Najera M.D. Measurements Intervals [place] Rate: 74 P: 64 CO: 228 QRS: 37 QRSD: 92 T: 42 QT: 382 QTc: 425 Interpretive Statements SINUS RHYTHM WITH FIRST DEGREE AV BLOCK LOW QRS VOLTAGE IN PRECORDIAL LEADS [QRS DEFLECTION < 1.0 mV IN CHEST LEADS] Compared to ECG 08/02/2020 16:46:58 First degree AV block now present Low QRS voltage now present Electronically Signed On 01-24-2021 21:40:00 CDT by Munir Najera M.D. [id number]
--- NOTE | 2021-01-24 20:34 | W.ED.CHESTPA ---
HPI - Chest Pain General: Chief Complaint: Chest Pain Stated Complaint: CHEST PAIN Time Seen by Provider: 01/24/21 20:32 Source: patient Mode of arrival: ambulatory Limitations: no limitations History of Present Illness: HPI narrative: 40-year-old male who has multiple medical issues along with morbid obesity. He states that the days had intermittent headaches along with mild chest pains. He states the pains been on and off. States that his pain is currently a 2 out of 10. Denies any shortness of breath. States the pain is been a sharp pain in his chest and his head. Denies any nausea. Denies any diaphoresis. Denies any worsening improving factors. Associated symptoms: Deny abdominal pain, dyspnea, fever(s), nausea or vomiting Review of Systems Const: Denies: fever(s), chills, body aches or change in appetite Eyes: Denies: blurry vision or eye discomfort ENMT: Denies: throat pain or dental pain Card: Reports: chest pain Resp: Denies: dyspnea GI: Denies: abdominal pain, nausea, vomiting or diarrhea : Denies: dysuria Musc: Denies: neck pain or back pain Skin/Breast: Denies: rash Neuro: Reports: headache(s) Psych: Denies: depression Carl/Lymph: Denies: easy bruising All/Imm: Denies: urticaria PFSH ED PFSH: Medical History Alcohol dependence, in remission Benign essential HTN Binge eating disorder Bipolar disorder, in partial remission, most recent episode manic DJD (degenerative joint disease) Dyspnea on exertion Gallstones GERD (gastroesophageal reflux disease) GI disease Morbid obesity Morbid obesity Nephrolithiasis Nephropathy Obstructive sleep apnea Posttraumatic stress disorder Supraventricular tachycardia Tinea cruris Surgical History H/O oral surgery S/P adenoidectomy S/P cholecystectomy S/P hernia repair S/P knee surgery S/P myringotomy with insertion of tube S/P tendon repair S/P vasectomy Family History Other Adopted Social History Smoking and tobacco status: current every day smoker e-cigarettes E-Cigarette Details: vaporizer device and with nicotine Smoking risk assessment/counseling performed?: Yes Tobacco counseling given: counseling >3 minutes Alcohol intake: former Year of sobriety/quit date alcohol: 11mo Adopted: Yes Caregiver/support person: No Lives independently: Yes Household members: spouse Housing: Apartment Marital status: Number of children: 2 Highest education level completed: Some College, No Degree service: Yes status: Medically Discharged/Retired branch: [employer] Current occupational status: disabled Pets and animals: Yes Pets & animals: dog(s) History of recent travel: No Leisure activites: games Sexually active: Yes Current gender identity: Male Leda/Adventist: None Special leda needs: No Agree to transfusion: Yes Financial difficulty paying for basics: Not Very Hard Physical Exam Const: COMMON NORMALS: no acute distress and patient oriented x3 NUTRITIONAL APPEARANCE: obese HENMT: COMMON NORMALS: normocephalic and atraumatic HEAD & SCALP: normocephalic and atraumatic Eye: COMMON NORMALS: Equal, round and reactive pupils present and EOMs intact bilaterally PUPIL: Yes Equal, round and reactive pupils present Neck/C-Spine: COMMON NORMALS: full ROM and supple Chest: COMMONS NORMALS: normal inspection of the chest and normal palpation of entire chest wall Resp: COMMON NORMALS: normal respiratory effort, No retractions, No use of accessory muscles and clear to auscultation bilaterally AUSCULTATION: clear to auscultation bilaterally Cardio: COMMON NORMALS: regular rate, regular rhythm and No murmurs present (Cardio) RATE: regular rate RHYTHM: regular rhythm GI: COMMON NORMALS: Normal to inspection, nondistended, normoactive bowel sounds present, Soft to palpation, non-tender and no masses PALPATION: Yes Soft to palpation Extremity: COMMON NORMALS: normal to inspection and full ROM Neuro: COMMON NORMALS: patient oriented x3, moves all extremities and no focal motor deficits Psych: COMMON NORMALS: mental status grossly normal, Normal thought process present and cooperative THOUGHT PROCESS: Normal thought process present Skin: COMMON NORMALS: no rashes or lesions noted and no wounds GENERAL SKIN EXAM: no rashes or lesions noted Course Vital Signs: Vital signs: Vital Signs Temperature 98.2 F 01/24/21 18:20 Pulse Rate 66 01/24/21 22:46 Respiratory Rate 18 01/24/21 22:46 Blood Pressure 108/60 01/24/21 22:46 Pulse Oximetry 98 01/24/21 22:46 MDM - Chest Pain MDM Narrative: Medical decision making narrative: Patient presents here with chest pain along with headache very typical nature. She is a well-appearing here is no signs of acute coronary syndrome. His troponin here is negative EKG is negative. He feels much improved he is stable for discharge Lab Data: Labs: Lab Results 01/24/21 01/24/21 01/24/21 Range/Units 21:20 21:20 21:20 WBC 9.1 (4.0-10.0) 10^3/ uL RBC 5.93 H (4.1-5.3) 10^6/u L Hgb 15.5 (11.7-16.6) g/dL Hct 47.8 (42.0-52.0) % MCV 80.6 (80-94) fl MCH 26.1 L (28.0-34.0) pg MCHC 32.4 (30.0-36.0) g/dL RDW 13.1 (12.1-15.1) % Plt Count 326 (130-400) 10^3/c mm MPV 10.0 (7.4-10.4) fL Neut % (Auto) 52.6 % Lymph % (Auto) 34.8 % Tyler % (Auto) 6.6 % Eos % (Auto) 4.1 % Baso % (Auto) 1.3 % Neut # (Auto) 4.76 (1.8-7.7) 10^3/u L Lymph # (Auto) 3.2 (0.8-4.8) 10^3/u L Tyler # (Auto) 0.6 (0.2-0.9) 10^3/u L Eos # (Auto) 0.4 (0.0-0.8) 10^3/u L Baso # (Auto) 0.1 (0.0-0.1) 10^3/u L Nucleated RBC % (a uto) 0 % Nucleated RBCs # 0.0 /100WBC Sodium 136 (136-145) mmol/L Potassium 3.7 (3.5-5.1) mmol/L Chloride 96 L (98-107) mmol/L Carbon Dioxide 27 (22-29) mmol/L Anion Gap 16.7 (5-19) BUN 10 (6-20) mg/dL Creatinine 0.6 L (0.7-1.2) mg/dL GFR Calculation 148.5 H (90-130) mL/min Glucose 323 H (65-115) mg/dL Calculated Osmolal ity 294 (285-295) mOsm/k g Calcium 9.3 (8.5-10.5) mg/dL Total Bilirubin 0.5 (0.15-1.2) mg/dL AST 24 (0-40) U/L ALT 52 H (0-41) U/L Alkaline Phosphata se 110 (40-130) IU/L Troponin T Baselin e 6 (0-15) ng/L Total Protein 6.6 (6.6-8.7) g/dL Albumin 4.1 (3.5-5.2) g/dL Globulin 2.5 (1.3-4.6) g/dL Digoxin 0.3 L (0.6-1.2) ng/mL Imaging Data^: CXR: Attestation: I personally reviewed and interpreted this imaging study as follows: My impression: no acute abnormality EKG Data^: EKG 1: Attestation: I personally reviewed and interpreted this EKG as follows: EKG interpretation date: 01/24/21 EKG interpretation time: 18:17 Interpretation: nsr hr [address] or t wave abnormalities qrs 92 qtc 409 Discharge Plan Discharge Patient Disposition: Home Clinical Impression: Chest pain Qualifiers: Chest pain type: unspecified Qualified Code(s): R07.9 - Chest pain, unspecified Head ache Qualifiers: Headache type: unspecified Headache chronicity pattern: episodic headache Intractability: not intractable Qualified Code(s): R51.9 - Headache, unspecified Condition: Stable Prescriptions: No Action Victoza 2-Henri 0.6 mg/0.1 mL (18 mg/3 mL) pen injector 1.8 mg SUBCUT QAM RF: 0 insulin aspart U-100 [Novolog PenFill U-100 Insulin] 100 unit/mL cartridge 10 unit SUBCUT TID RF: 0 digoxin 125 mcg (0.125 mg) tablet 125 mcg PO QAM RF: 0 pantoprazole 20 mg tablet,delayed release (DR/EC) 20 mg PO DAILY RF: 0 simvastatin 20 mg tablet 20 mg PO DAILY RF: 0 isosorbide mononitrate 30 mg tablet extended release 24 hr 30 mg PO DAILY 30 Days Qty: 30 RF: 5 metformin 1,000 mg Tablet 1,000 mg PO BID RF: 0 lisinopril 40 mg Tablet 40 mg PO QAM RF: 0 Lantus Solostar U-100 Insulin 100 unit/mL (3 mL) insulin pen 75 unit SUBCUT BID Qty: 15 RF: 0 aspirin 81 mg Tablet,Delayed Release (Dr/Ec) 81 mg PO QAM RF: 0 amlodipine 10 mg tablet 10 mg PO DAILY RF: 0 Lamictal 100 mg tablet 100 mg PO QAM RF: 0 metoprolol tartrate 50 mg tablet 100 mg PO BID RF: 0 mupirocin 2 % ointment 1 applic topical BID Qty: 22 RF: 0 Discharge Orders: Discharge ED (Routine); Ordered 01/24/21 Ordered By: Nancy Vance Referrals: Toña Ivey AIRBRUSH PAINTER [Primary Care Provider] - Discharge Diet: Advance as tolerated Discharge Activity: Resume usual activity Patient Instructions: Headache, Chest Pain (ED) Coding Level of Care Code ED Vector Control Specialist for Valentinag Fwd Exam Comprehensive
[2021-01-24 21:33] LABS: Basophils # 0.1 10^3/uL (0.0-0.1); Basophils % 1.3 %; Eosinophils # 0.4 10^3/uL (0.0-0.8); Eosinophils % 4.1 %; Hematocrit 47.8 % (42.0-52.0); Hemoglobin 15.5 g/dL (11.7-16.6); Lymphocytes # 3.2 10^3/uL (0.8-4.8); Lymphocytes % 34.8 %; Mean Corpuscular HGB Conc 32.4 g/dL (30.0-36.0); Mean Corpuscular Hemoglobin 26.1 pg (28.0-34.0); Mean Corpuscular Volume 80.6 fl (80-94); Monocytes # 0.6 10^3/uL (0.2-0.9); Monocytes % 6.6 %; Neutrophils # 4.76 10^3/uL (1.8-7.7); Neutrophils % 52.6 %; Nucleated Red Blood Cells % 0 %; Platelet Count 326 10^3/cmm (130-400); Red Blood Count 5.93 10^6/uL (4.1-5.3); Red Cell Distribution Width 13.1 % (12.1-15.1); White Blood Count 9.1 10^3/uL (4.0-10.0)
[2021-01-24 21:36] VITALS: BP 150/84; PULSE 72; RESP 22; O2SAT 97
[2021-01-24 21:49] LABS: Alanine Aminotransferase 52 U/L (0-41); Albumin Level 4.1 g/dL (3.5-5.2); Alkaline Phosphatase 110 IU/L (40-130); Anion Gap 16.7 (5-19); Aspartate Amino Transferase 24 U/L (0-40); Blood Urea Nitrogen 10 mg/dL (6-20); Calcium 9.3 mg/dL (8.5-10.5); Carbon Dioxide 27 mmol/L (22-29); Chloride 96 mmol/L (98-107); Digoxin 0.3 ng/mL (0.6-1.2); Globulin 2.5 g/dL (1.3-4.6); Glomerular Filtration Rate 148.5 mL/min (90-130); Glucose 323 mg/dL (65-115); Osmolality Calculated 294 mOsm/kg (285-295); Potassium 3.7 mmol/L (3.5-5.1); Sodium 136 mmol/L (136-145); Total Bilirubin 0.5 mg/dL (0.15-1.2); Total Protein 6.6 g/dL (6.6-8.7)
[2021-01-24 21:50] LABS: Troponin(5th) Baseline 6 ng/L (0-15)
[2021-01-24] MEDS: diphenhydrAMINE 50 mg/mL SDV 1mL IVP (22:39)
[2021-01-24] MEDS: metoclopramide 5 mg/mL SDV 2 mL 10 MG IVP (22:40)
[2021-01-24 22:46] VITALS: BP 108/60; PULSE 66; RESP 18; O2SAT 98
[2021-01-24 23:12] VITALS: BP 129/67; PULSE 69; RESP 20; O2SAT 95
== END 2021-01-24 23:13 | disposition home or self-care (01) ==
PROVIDERS: Emergency Provider Emergency Medicine; PCP Nurse Practitioner Family
DX: R07.9 Chest pain, unspecified (principal); R51.9 Headache, unspecified; I10 Essential (primary) hypertension; E66.01 Morbid (severe) obesity due to excess calories; Z68.44 Body mass index [BMI] 60.0-69.9, adult; F17.210 Nicotine dependence, cigarettes, uncomplicated
CPT/HCPCS: 36415; 71045; 80053; 80162; 84484; 85025; 93005; 96374; 96375; 99284; J1200; J2765

== ENCOUNTER 2021-02-01 06:00 | Outpatient (RCR) | payer OTHER, MEDICAID, SELFPAY ==
[2020-09-16 13:12] VITALS: BP 132/80; BMI 61.5
== END 2021-03-02 23:59 | disposition home or self-care (01) ==
LOC: SPT 06:00
PROVIDERS: PCP Nurse Practitioner Family; Referring Provider Family Medicine; Visit Provider Family Medicine
DX: M12.50 Traumatic arthropathy, unspecified site (principal)
CPT/HCPCS: 97110

== ENCOUNTER 2021-02-08 22:03 | Emergency (ER) | payer OTHER, MEDICAID, SELFPAY ==
[2020-09-16 13:12] VITALS: BP 132/80; BMI 61.5
[2021-02-08 22:25] VITALS: BP 161/99; PULSE 133; RESP 20; TEMP 36.8; O2SAT 98; BMI 60.4
[2021-02-08 22:35] VITALS: BP 160/92; PULSE 109; TEMP 36.6; O2SAT 97
--- NOTE | 2021-02-08 22:35 | ED_ITS ---
HPI - Skin/Abscess/Foreign Bdy General: Chief complaint: Skin/Abscess/Foreign Body Stated complaint: rash on face Time Seen by Provider: 02/08/21 22:33 History of Present Illness: HPI narrative: 40-year-old male patient comes in today with redness to the face. It is patterned as a mask. Patient reports just noticing it tonight. Patient appears well. Patient appears no acute distress. Patient denies any new medications or changes in routine. I do note however patient has recently shaved his gannon. Review of Systems General: Reports: 10 or more systems reviewed and unremarkable except in HPI and below Skin/Breast: Reports: other (Rash to face.) PFSH ED PFSH: Medical History Alcohol dependence, in remission Benign essential HTN Binge eating disorder Bipolar disorder, in partial remission, most recent episode manic DJD (degenerative joint disease) Dyspnea on exertion Gallstones GERD (gastroesophageal reflux disease) GI disease Morbid obesity Morbid obesity Nephrolithiasis Nephropathy Obstructive sleep apnea Posttraumatic stress disorder Supraventricular tachycardia Tinea cruris Surgical History H/O oral surgery S/P adenoidectomy S/P cholecystectomy S/P hernia repair S/P knee surgery S/P myringotomy with insertion of tube S/P tendon repair S/P vasectomy Family History Other Adopted Social History Smoking and tobacco status: current every day smoker e-cigarettes E-Cigarette Details: vaporizer device and with nicotine Smoking risk assessment/counseling performed?: Yes Tobacco counseling given: counseling >3 minutes Alcohol intake: former Year of sobriety/quit date alcohol: 11mo Adopted: Yes Caregiver/support person: No Lives independently: Yes Household members: spouse Housing: Apartment Marital status: Number of children: 2 Highest education level completed: Some College, No Degree service: Yes status: Medically Discharged/Retired branch: [employer] Current occupational status: disabled Pets and animals: Yes Pets & animals: dog(s) History of recent travel: No Leisure activites: games Sexually active: Yes Current gender identity: Male Leda/Druze: None Special leda needs: No Agree to transfusion: Yes Financial difficulty paying for basics: Not Very Hard Physical Exam Const: COMMON NORMALS: no acute distress and patient oriented x3 GENERAL APPEARANCE: cooperative HENMT: COMMON NORMALS: normocephalic and Normal external nose present HEAD & SCALP: normal to inspection and normocephalic NOSE: Normal external nose present MOUTH: Normal oral and palatal mucosa present Eye: GENERAL EYE: appearance normal, both eyes and all related structures Neck/C-Spine: COMMON NORMALS: full ROM Lymph: LYMPHATIC: no lymphadenopathy noted Chest: COMMONS NORMALS: normal inspection of the chest Resp: COMMON NORMALS: normal respiratory effort EFFORT & INSPECTION: Yes able to speak in complete sentences Cardio: COMMON NORMALS: regular rate and regular rhythm RATE: regular rate RHYTHM: regular rhythm GI: COMMON NORMALS: non-tender : COMMON NORMALS: Yes no CVA tenderness BLADDER/KIDNEY EXAM: Yes no CVA tenderness Back/Pelvis: COMMON NORMALS: no CVA tenderness and thoracic and lumbar spine normal to inspection Extremity: COMMON NORMALS: normal to inspection Neuro: COMMON NORMALS: patient oriented x3 and moves all extremities Psych: COMMON NORMALS: mental status grossly normal and cooperative Skin: COMMON NORMALS: no rashes or lesions noted NARRATIVE SKIN EXAM: Patient has a red masklike rash to the face. Mainly involving his forehead bilateral facial cheeks and nose. GENERAL SKIN EXAM: no rashes or lesions noted Course Vital Signs: Vital signs: Vital Signs Temperature 97.9 F 02/08/21 22:35 Pulse Rate 109 H 02/08/21 22:35 Respiratory Rate 20 H 02/08/21 22:25 Blood Pressure 160/92 02/08/21 22:35 Pulse Oximetry 97 02/08/21 22:35 MDM - Skin/Abscess/Foreign Bdy MDM Narrative: Medical decision making narrative: Patient comes in for evaluation of mask-like rash to the face. On exam we note a red mildly indurated rash to the facial cheeks nose and forehead. Patient also has some lending consultant redness in other areas of the face. Patient reports that has some mild burning to it vital signs are normal. Differential diagnosis includes but not limited to rosacea, seborrheic dermatitis, perioral dermatitis, cellulitis. I will start patient on some doxycycline mainly to cover for rosacea and for cellulitis type rash. Patient was also placed on some hydrocortisone to cover for just a mild dermatitis. Encourage patient to follow-up with primary care for further instruction. Or return to the ER for worsening symptoms. Discharge Plan Discharge Patient Disposition: Home Clinical Impression: Dermatitis of face Condition: Stable Prescriptions: New doxycycline monohydrate 100 mg capsule 100 mg PO BID 10 Days Qty: 20 RF: 0 hydrocortisone 1 % cream 1 applic topical BID Qty: 28.4 RF: 0 No Action Victoza 2-Henri 0.6 mg/0.1 mL (18 mg/3 mL) pen injector 1.8 mg SUBCUT QAM RF: 0 insulin aspart U-100 [Novolog PenFill U-100 Insulin] 100 unit/mL cartridge 10 unit SUBCUT TID RF: 0 digoxin 125 mcg (0.125 mg) tablet 125 mcg PO QAM RF: 0 pantoprazole 20 mg tablet,delayed release (DR/EC) 20 mg PO DAILY RF: 0 simvastatin 20 mg tablet 20 mg PO DAILY RF: 0 isosorbide mononitrate 30 mg tablet extended release 24 hr 30 mg PO DAILY 30 Days Qty: 30 RF: 5 metformin 1,000 mg Tablet 1,000 mg PO BID RF: 0 lisinopril 40 mg Tablet 40 mg PO QAM RF: 0 Lantus Solostar U-100 Insulin 100 unit/mL (3 mL) insulin pen 75 unit SUBCUT BID Qty: 15 RF: 0 aspirin 81 mg Tablet,Delayed Release (Dr/Ec) 81 mg PO QAM RF: 0 amlodipine 10 mg tablet 10 mg PO DAILY RF: 0 Lamictal 100 mg tablet 100 mg PO QAM RF: 0 metoprolol tartrate 50 mg tablet 100 mg PO BID RF: 0 mupirocin 2 % ointment 1 applic topical BID Qty: 22 RF: 0 Discharge Orders: Discharge ED (Routine); Ordered 02/08/21 Ordered By: Wyatt Barker Referrals: Toña Ivey, [employer] MANAGER [Primary Care Provider] - Discharge Diet: Usual diet Discharge Activity: Increase activity as tolerated Patient Instructions: Opioid Safety, Seborrheic Dermatitis Activity Restrictions/Additional Instructions: Drink plenty of water with medication. Use hydrocortisone cream twice a day to the face. Use doxycycline twice a day for the next 10 days. Avoid direct sunlight while taking doxycycline as you may be more sensitive to the sun. Follow-up with primary care in 1 week for recheck. Return to the ER for new concerns. Coding Level of Care Code ED Public Address System Mechanic for Christin Chang
[2021-02-08] MEDS: doxycycline 100 mg Tablet PO (23:06)
== END 2021-02-08 23:09 | disposition home or self-care (01) ==
PROVIDERS: Emergency Provider Nurse Practitioner Family; PCP Nurse Practitioner Family
DX: L30.9 Dermatitis, unspecified (principal); Z79.82 Long term (current) use of aspirin; Z79.4 Long term (current) use of insulin; I10 Essential (primary) hypertension; F17.290 Nicotine dependence, other tobacco product, uncomplicated
CPT/HCPCS: 99282

== ENCOUNTER → 2021-02-20 12:26 | Outpatient (BNVA) | payer OTHER, SELFPAY ==
[2020-09-16 13:12] VITALS: BP 132/80; BMI 61.5
== END ==
PROVIDERS: PCP Nurse Practitioner Family; Visit Provider Registered Nurse Neonatal Intensive Care
DX: M79.643 Pain in unspecified hand (principal); M79.644 Pain in right finger(s); Z68.44 Body mass index [BMI] 60.0-69.9, adult; F17.290 Nicotine dependence, other tobacco product, uncomplicated; Z71.89 Other specified counseling
CPT/HCPCS: 73130

== ENCOUNTER 2021-03-03 06:00 | Outpatient (RCR) | payer OTHER, MEDICAID, SELFPAY ==
[2020-09-16 13:12] VITALS: BP 132/80; BMI 61.5
== END 2021-04-02 23:59 | disposition home or self-care (01) ==
LOC: SPT 06:00
PROVIDERS: PCP Nurse Practitioner Family; Referring Provider Family Medicine; Visit Provider Family Medicine
DX: M19.071 Primary osteoarthritis, right ankle and foot (principal)
CPT/HCPCS: 97110

== ENCOUNTER 2021-03-12 21:53 | Emergency (ER) | payer OTHER, MEDICAID, SELFPAY ==
[2020-09-16 13:12] VITALS: BP 132/80; BMI 61.5
--- NOTE | 2021-03-12 21:54 | XRR_ITS ---
PROCEDURE INFORMATION: Exam: XR Left Ankle Exam date and time: 03/12/2021 9:54 PM Age: 40 years old Clinical indication: Pain; Ankle; Left; Additional info: Injury TECHNIQUE: Imaging protocol: XR Left ankle. Views: 3 or more views. COMPARISON: CR Ankle 3 views, LEFT* [id number] 03/28/2016 7:48 PM FINDINGS: Bones/joints: No fracture or other acute osseous abnormality. No joint narrowing, dislocation, or effusion noted. Soft tissues: Mild soft tissue edema. XR/XR ankle LT min 3V* [id number] IMPRESSION: 1. No acute fracture demonstrated. 2. There is no interval change from the prior examination. Radiation Dose CTDIVOL = (mGy): DLP = (mGy-cm)
[2021-03-12 22:10] VITALS: BP 167/93; PULSE 111; RESP 18; TEMP 37; O2SAT 98
--- NOTE | 2021-03-12 22:16 | W.ED.EXTPRO ---
HPI - Extremity Problem General: Chief complaint: Extremity Injury, Lower Stated complaint: Mahesh frost injury Time Seen by Provider: 03/12/21 22:16 History of Present Illness: HPI Narrative: Patient is a 40-year-old male comes to the ED with left ankle injury. Just prior to arrival patient was walking on the road and then stepped up onto a curb and twisted his left ankle foot. He reports some mild pain on left foot and ankle. He is able to weight-bear but does cause some mild discomfort. Mild swelling to lateral aspect of foot and ankle. Patient denies any other injuries or complaints. Associated symptoms: Deny chest pain, fever(s) or rash Review of Systems Const: Denies: fever(s), chills or fatigue Eyes: Denies: change in vision or eye discomfort ENMT: Denies: throat pain, odynophagia, nasal discharge or nasal congestion Card: Denies: chest pain, palpitations, edema, swelling of feet/ankles, dyspnea on exertion or orthopnea Resp: Denies: dyspnea, productive cough or non-productive cough GI: Denies: abdominal pain, nausea, vomiting, diarrhea, constipation or hematochezia : Denies: flank pain, difficulty urinating, dysuria or hematuria Musc: Reports: extremity pain (Left ankle), extremity swelling (Left ankle) and limited range of motion (Left ankle); Denies: neck pain or back pain Skin/Breast: Denies: rash or new lesions Neuro: Denies: headache(s), numbness in extremities or weakness in extremities PFS ED PFSH: Medical History Alcohol dependence, in remission Benign essential HTN Binge eating disorder Bipolar disorder, in partial remission, most recent episode manic DJD (degenerative joint disease) Dyspnea on exertion Gallstones GERD (gastroesophageal reflux disease) GI disease Morbid obesity Morbid obesity Nephrolithiasis Nephropathy Obstructive sleep apnea Posttraumatic stress disorder Supraventricular tachycardia Tinea cruris Surgical History H/O oral surgery S/P adenoidectomy S/P cholecystectomy S/P hernia repair S/P knee surgery S/P myringotomy with insertion of tube S/P tendon repair S/P vasectomy Family History Other Adopted Social History Smoking and tobacco status: current every day smoker e-cigarettes E-Cigarette Details: vaporizer device and with nicotine Smoking risk assessment/counseling performed?: Yes Tobacco counseling given: counseling >3 minutes Alcohol intake: former Year of sobriety/quit date alcohol: 11mo Adopted: Yes Caregiver/support person: No Lives independently: Yes Household members: spouse Housing: Apartment Marital status: Number of children: 2 Highest education level completed: Some College, No Degree service: Yes status: Medically Discharged/Retired branch: [employer] Current occupational status: disabled Pets and animals: Yes Pets & animals: dog(s) History of recent travel: No Leisure activites: games Sexually active: Yes Current gender identity: Male Leda/Hoahaoism: None Special leda needs: No Agree to transfusion: Yes Financial difficulty paying for basics: Not Very Hard Physical Exam Const: COMMON NORMALS: no acute distress, patient oriented x3 and alert GENERAL APPEARANCE: cooperative and comfortable NUTRITIONAL APPEARANCE: obese HENMT: COMMON NORMALS: normocephalic HEAD & SCALP: normocephalic MOUTH: Normal oral and palatal mucosa present THROAT: posterior oropharynx normal and uvula midline Neck/C-Spine: COMMON NORMALS: supple GENERAL: Yes normal visual inspection Resp: COMMON NORMALS: normal respiratory effort, No retractions, No use of accessory muscles and clear to auscultation bilaterally AUSCULTATION: clear to auscultation bilaterally Cardio: COMMON NORMALS: regular rate, regular rhythm, S1 normal heart sound present, S2 normal heart sound present, No gallops present (Cardio), No clicks present (Cardio), No murmurs present (Cardio) and Peripheral pulses 2+ throughout RATE: regular rate RHYTHM: regular rhythm HEART SOUNDS: S1 normal heart sound present and S2 normal heart sound present PERIPHERAL PULSES: Peripheral pulses 2+ throughout GI: COMMON NORMALS: Normal to inspection, nondistended, normoactive bowel sounds present, Soft to palpation, non-tender and no masses PALPATION: Yes Soft to palpation : COMMON NORMALS: Yes no CVA tenderness BLADDER/KIDNEY EXAM: Yes no CVA tenderness Back/Pelvis: COMMON NORMALS: no CVA tenderness Extremity: LEFT LOWER EXTREMITY: Yes ankle joint Left ankle: Yes inspection (No deformity, ecchymosis or swelling seen.), Yes palpation (Nontender), Yes ROM (Full) and Yes neurovascular exam (Intact) and Yes foot & digits Left foot and digits: Yes inspection (No deformity, swelling or ecchymosis seen.), Yes palpation (Tenderness over lateral aspect of foot.), Yes ROM (Full) and Yes neurovascular exam (Intact) Neuro: COMMON NORMALS: patient oriented x3 and moves all extremities SENSORIUM/ORIENTATION: Yes alert Skin: GENERAL SKIN EXAM: dry skin Course Vital Signs: Vital signs: Vital Signs Temperature 98.6 F 03/12/21 22:10 Pulse Rate 111 H 03/12/21 22:10 Respiratory Rate 18 03/12/21 22:10 Blood Pressure 167/93 03/12/21 22:10 Pulse Oximetry 98 03/12/21 22:10 MDM - Extremity (Nontraumatic) MDM Narrative: Medical decision making narrative: Patient is a 40-year-old male comes to the ED with left foot/ankle injury. Exam is benign. X-ray of left foot and ankle show no acute fractures or findings. Patient was diagnosed with left foot injury and discharged home. Rest, ice and elevate left foot and take [id number] Tylenol or Motrin for pain. Return to ED precautions given. Follow-up with PCP in 7 to 10 days for reevaluation. Patient understood and agreed with plan. Imaging Data^: Xray Ortho: Attestation: I personally reviewed and interpreted this imaging study as follows: Radiologist's impression: [address] [id number] ReportSigned Patient: Tyree Buckley #: [id number]: 1980Acct#:[id number]/Sex: 40 / MADM Date: 03/12/21Loc: ERRoom/Bed:Attending Dr: Ordering Provider/Ordering MD: Nancy Vance MD Date of Service: 03/12/21 Procedure(s): XR ankle LT min 3V* [id number] Accession Number(s): [id number] Report Number: [id number] PROCEDURE INFORMATION: Exam: XR Left Ankle Exam date and time: 03/12/2021 9:54 PM Age: 40 years old Clinical indication: Pain; Ankle; Left; Additional info: Injury TECHNIQUE: Imaging protocol: XR Left ankle. Views: 3 or more views. COMPARISON: CR Ankle 3 views, LEFT* [id number] 03/28/2016 7:48 PM FINDINGS: Bones/joints: No fracture or other acute osseous abnormality. No joint narrowing, dislocation, or effusion noted. Soft tissues: Mild soft tissue edema. XR/XR ankle LT min 3V* [id number] IMPRESSION: 1. No acute fracture demonstrated. 2. There is no interval change from the prior examination. Radiation Dose CTDIVOL = (mGy): DLP = (mGy-cm) Dictated By:Matt Guthrie MDSigned By:Matt Guthrie MDSigned Date/Time:03/13/21 0058DD/ [address] [id number] ReportSigned Patient: Tyree Buckley #: [id number]: 1980Acct#:[id number]/Sex: 40 / MADM Date: 03/12/21Loc: ERRoom/Bed:Attending Dr: Ordering Provider/Ordering MD: Homero Khanna Date of Service: 03/12/21 Procedure(s): XR foot LT 2V 97719 Accession Number(s): [id number] Report Number: [id number] PROCEDURE INFORMATION: Exam: XR Left Foot Exam date and time: 03/12/2021 10:49 PM Age: 40 years old Clinical indication: Pain; Foot; Left; Additional info: Trauma TECHNIQUE: Imaging protocol: XR Left foot. Views: 1 or 2 views. COMPARISON: CR Foot 3 views, LEFT* [id number] 03/23/2016 3:59 PM FINDINGS: Bones/joints: No fracture or other acute osseous abnormality. No acute or chronic joint abnormality demonstrated. Soft tissues: The soft tissues appear unremarkable. XR/XR foot LT 2V 88175 IMPRESSION: 1. No acute fracture demonstrated. 2. There is no significant change from the prior examination. Radiation Dose CTDIVOL = (mGy): DLP = (mGy-cm) Dictated By:Matt Guthrie MDSigned By:Matt Guthrie MDSigned Date/Time:03/13/21 0057DD/ 2249 Discharge Plan Discharge Patient Disposition: Home Clinical Impression: Injury of foot, left Qualifiers: Encounter type: initial encounter Qualified Code(s): S99.922A - Unspecified injury of left foot, initial encounter Condition: Stable Prescriptions: No Action Victoza 2-Henri 0.6 mg/0.1 mL (18 mg/3 mL) pen injector 1.8 mg SUBCUT QAM RF: 0 insulin aspart U-100 [Novolog PenFill U-100 Insulin] 100 unit/mL cartridge 10 unit SUBCUT TID RF: 0 (DME) Custom Molded Orthotics See Rx Instructions .Route .MEDSUPPLY Qty: 1 RF: 0 digoxin 125 mcg (0.125 mg) tablet 125 mcg PO QAM RF: 0 pantoprazole 20 mg tablet,delayed release (DR/EC) 20 mg PO DAILY RF: 0 simvastatin 20 mg tablet 20 mg PO DAILY RF: 0 isosorbide mononitrate 30 mg tablet extended release 24 hr 30 mg PO DAILY 30 Days Qty: 30 RF: 5 cephalexin [Keflex] 750 mg capsule 750 mg PO BID 7 Days Qty: 14 RF: 0 silver sulfadiazine 1 % cream 1 applic topical BID 14 Days Qty: 50 RF: 0 acetaminophen-codeine 300-30 mg tablet 1 tab PO Q6H PRN (Reason: pain) 7 Days Qty: 10 RF: 0 hydrocortisone 1 % cream 1 applic topical BID Qty: 28.4 RF: 0 metformin 1,000 mg Tablet 1,000 mg PO BID RF: 0 lisinopril 40 mg Tablet 40 mg PO QAM RF: 0 Lantus Solostar U-100 Insulin 100 unit/mL (3 mL) insulin pen 75 unit SUBCUT BID Qty: 15 RF: 0 aspirin 81 mg Tablet,Delayed Release (Dr/Ec) 81 mg PO QAM RF: 0 amlodipine 10 mg tablet 10 mg PO DAILY RF: 0 Lamictal 100 mg tablet 100 mg PO QAM RF: 0 metoprolol tartrate 50 mg tablet 100 mg PO BID RF: 0 mupirocin 2 % ointment 1 applic topical BID Qty: 22 RF: 0 Discharge Orders: Discharge ED (Routine); Ordered 03/12/21 Ordered By: Homero Clemencia Referrals: Toña Ivey FNP [Primary Care Provider] - Discharge Diet: Regular Discharge Activity: Increase activity as tolerated Activity Restrictions/Additional Instructions: Follow-up with medical provider as directed in 7 to 10 days for reevaluation. Rest, ice and elevate left foot. Take [id number] Tylenol or ibuprofen for pain. Take medications as prescribed. Return to the ER or your medical provider if condition worsens. Please read and understand discharge instructions. Thank you for choosing [facility] for your healthcare needs today. Please realize this is an emergency room and that we are providing you with a medical screening exam and this may not be complete and all inclusive of all the testing and or work up that you may need to determine your ailment or severity of your illness. It is very important that you follow up as instructed or that you return to the Emergency Department should you have concerns or if your condition changes or worsens in any way. Coding Level of Care Code ED Research Editor for Christin Chang Exam Comprehensive
--- NOTE | 2021-03-12 22:49 | XRR_ITS ---
PROCEDURE INFORMATION: Exam: XR Left Foot Exam date and time: 03/12/2021 10:49 PM Age: 40 years old Clinical indication: Pain; Foot; Left; Additional info: Trauma TECHNIQUE: Imaging protocol: XR Left foot. Views: 1 or 2 views. COMPARISON: CR Foot 3 views, LEFT* [id number] 03/23/2016 3:59 PM FINDINGS: Bones/joints: No fracture or other acute osseous abnormality. No acute or chronic joint abnormality demonstrated. Soft tissues: The soft tissues appear unremarkable. XR/XR foot LT 2V 68301 IMPRESSION: 1. No acute fracture demonstrated. 2. There is no significant change from the prior examination. Radiation Dose CTDIVOL = (mGy): DLP = (mGy-cm)
== END 2021-03-12 23:15 | disposition home or self-care (01) ==
PROVIDERS: Emergency Provider Physician Assistant; PCP Nurse Practitioner Family
DX: S99.922A Unspecified injury of left foot, initial encounter (principal); Z79.4 Long term (current) use of insulin; Z79.82 Long term (current) use of aspirin; I10 Essential (primary) hypertension; F17.290 Nicotine dependence, other tobacco product, uncomplicated; X50.1XXA Overexertion from prolonged static or awkward postures, initial encounter
CPT/HCPCS: 73610; 73620; 99282

== ENCOUNTER 2021-03-14 21:13 | Emergency (ER) | payer OTHER, MEDICAID, SELFPAY ==
[2020-09-16 13:12] VITALS: BP 132/80; BMI 61.5
[2021-03-14 21:34] VITALS: BP 173/109; PULSE 97; RESP 16; TEMP 36.8; O2SAT 95
--- NOTE | 2021-03-14 21:59 | ED_ITS ---
HPI - Wound/Laceration General: Chief Complaint: Wound/Laceration Time Seen by Provider: 03/14/21 21:58 History of Present Illness: HPI narrative: Patient is a 40-year-old male who comes to the ED with right toe wound. Patient has a past medical history of diabetes type 2, morbid obesity and hypertension. Patient had his toenail removed by Dr. Womack on March 09. Since removal he has been taking Keflex as prescribed and cleaning, applying Silvadene cream and rebandaging right great toe daily. Today he noticed some possible pus on the medial aspect of great toenail and wanted to be evaluated. His pain is improving but still has some mild tenderness post removal of nail. Associated symptoms: Denies chills, fever(s), nausea or vomiting Review of Systems Const: Denies: fever(s), chills or fatigue Eyes: Denies: change in vision or eye discomfort ENMT: Denies: throat pain, odynophagia, nasal discharge or nasal congestion Card: Denies: chest pain, palpitations, edema, swelling of feet/ankles, dyspnea on exertion or orthopnea Resp: Denies: dyspnea, productive cough or non-productive cough GI: Denies: abdominal pain, nausea, vomiting, diarrhea, constipation or hematochezia : Denies: flank pain, difficulty urinating, dysuria or hematuria Musc: Reports: extremity pain (Right great toe); Denies: neck pain, back pain or extremity swelling Skin/Breast: Reports: surgical incision (Right great toenail removed by - Postop erythema and warmth.); Denies: rash or new lesions Neuro: Denies: headache(s), numbness in extremities or weakness in extremities PFSH ED PFSH: Medical History Alcohol dependence, in remission Benign essential HTN Binge eating disorder Bipolar disorder, in partial remission, most recent episode manic DJD (degenerative joint disease) Dyspnea on exertion Gallstones GERD (gastroesophageal reflux disease) GI disease Morbid obesity Morbid obesity Nephrolithiasis Nephropathy Obstructive sleep apnea Posttraumatic stress disorder Supraventricular tachycardia Tinea cruris Surgical History H/O oral surgery S/P adenoidectomy S/P cholecystectomy S/P hernia repair S/P knee surgery S/P myringotomy with insertion of tube S/P tendon repair S/P vasectomy Family History Other Adopted Social History Smoking and tobacco status: current every day smoker e-cigarettes E-Cigarette Details: vaporizer device and with nicotine Smoking risk assessment/counseling performed?: Yes Tobacco counseling given: counseling >3 minutes Alcohol intake: former Year of sobriety/quit date alcohol: 11mo Adopted: Yes Caregiver/support person: No Lives independently: Yes Household members: spouse Housing: Apartment Marital status: Number of children: 2 Highest education level completed: Some College, No Degree service: Yes status: Medically Discharged/Retired branch: [employer] Current occupational status: disabled Pets and animals: Yes Pets & animals: dog(s) History of recent travel: No Leisure activites: games Sexually active: Yes Current gender identity: Male Leda/Faith: None Special leda needs: No Agree to transfusion: Yes Financial difficulty paying for basics: Not Very Hard Physical Exam Const: COMMON NORMALS: no acute distress, patient oriented x3 and alert GENERAL APPEARANCE: cooperative and comfortable NUTRITIONAL APPEARANCE: obese HENMT: COMMON NORMALS: normocephalic HEAD & SCALP: normocephalic MOUTH: Normal oral and palatal mucosa present THROAT: posterior oropharynx normal and uvula midline Neck/C-Spine: COMMON NORMALS: supple GENERAL: Yes normal visual inspection Resp: COMMON NORMALS: normal respiratory effort, No retractions, No use of accessory muscles and clear to auscultation bilaterally AUSCULTATION: clear to auscultation bilaterally Cardio: COMMON NORMALS: regular rate, regular rhythm, S1 normal heart sound present, S2 normal heart sound present, No gallops present (Cardio), No clicks present (Cardio), No murmurs present (Cardio) and Peripheral pulses 2+ throughout RATE: regular rate RHYTHM: regular rhythm HEART SOUNDS: S1 normal heart sound present and S2 normal heart sound present PERIPHERAL PULSES: Peripheral pulses 2+ throughout GI: COMMON NORMALS: Normal to inspection, nondistended, normoactive bowel sounds present, Soft to palpation, non-tender and no masses PALPATION: Yes Soft to palpation : COMMON NORMALS: Yes no CVA tenderness BLADDER/KIDNEY EXAM: Yes no CVA tenderness Back/Pelvis: COMMON NORMALS: no CVA tenderness Extremity: NARRATIVE EXTREMITY EXAM: Right foot?great toe post nail removal. Some mild erythema and warmth noted. No purulent drainage. GENERAL: Yes normal exam except as noted Neuro: COMMON NORMALS: patient oriented x3 and moves all extremities SENSORIUM/ORIENTATION: Yes alert Skin: NARRATIVE SKIN EXAM: Right foot?great toe post nail removal. Some mild erythema and warmth noted. No purulent drainage. GENERAL SKIN EXAM: dry skin Course Vital Signs: Vital signs: Vital Signs Temperature 98.2 F 03/14/21 21:34 Pulse Rate 68 03/14/21 23:20 Respiratory Rate 18 03/14/21 23:20 Blood Pressure 112/78 03/14/21 23:20 Pulse Oximetry 98 03/14/21 23:20 MDM - Wound/Laceration MDM Narrative: Medical decision making narrative: Patient is a 40-year-old male comes to the ED for evaluation of right great toe post op nail removal. Right great toe appears to be healing well there is a little bit of erythema and warmth around the nailbed. No purulent drainage seen. X-ray of right foot showed no bone fractures or signs of osteomyelitis seen. Patient was given a dose of Rocephin IM while here in the ED to help with some possible mild postop cellulitis. Patient diagnosed with status post surgical removal of nail on toe of right foot. He was told to continue taking his previously prescribed cephalexin. He is going to contact Dr. Womack to have a follow-up appointment for reevaluation in the next 7 to 10 days. Return to ED precautions given. Patient understood and agree with plan. Imaging Data^: Xray Ortho: Attestation: I personally reviewed and interpreted this imaging study as follows: My impression: Right foot x-ray?no acute fractures or great toe bone destruction seen. Radiologist's impression: [address] [place] [address] XRay Report Signed Patient: Tyree Buckley Unit #: [id number] : 1980 Age/Sex: 40 / M ADM Date: 03/14/21 Loc: ER Room/Bed: Attending Dr: Ordering Provider/Ordering MD: Homero Khanna Date of Service: 03/14/21 Procedure(s): XR foot RT min 3V* 38522 Accession Number(s): [id number] Report Number: [id number] PROCEDURE INFORMATION: Exam: XR Right Foot Exam date and time: 03/14/2021 10:24 PM Age: 40 years old Clinical indication: Pain; Foot; Right; Additional info: Great toe possible infection TECHNIQUE: Imaging protocol: XR Right foot. Views: 3 or more views. COMPARISON: No relevant prior studies available. FINDINGS: Bones/joints: Mild 1st metatarsophalangeal joint osteoarthritis, negative for acute findings. Soft tissues: Normal. XR/XR foot RT min 3V* [id number] IMPRESSION: Mild 1st metatarsophalangeal joint osteoarthritis, negative for acute findings. Radiation Dose CTDIVOL = (mGy): DLP = (mGy-cm) Dictated By: Med Millard MD Signed By: Med Millard MD Signed Date/Time: 03/15/21 0013 DD/ 23 Discharge Plan Discharge Patient Disposition: Home Clinical Impression: Status post surgical removal of nail matrix of toe of right foot Condition: Stable Prescriptions: No Action Victoza 2-Henri 0.6 mg/0.1 mL (18 mg/3 mL) pen injector 1.8 mg SUBCUT QAM RF: 0 insulin aspart U-100 [Novolog PenFill U-100 Insulin] 100 unit/mL cartridge 10 unit SUBCUT TID RF: 0 (DME) Custom Molded Orthotics See Rx Instructions .Route .MEDSUPPLY Qty: 1 RF: 0 digoxin 125 mcg (0.125 mg) tablet 125 mcg PO QAM RF: 0 pantoprazole 20 mg tablet,delayed release (DR/EC) 20 mg PO DAILY RF: 0 simvastatin 20 mg tablet 20 mg PO DAILY RF: 0 isosorbide mononitrate 30 mg tablet extended release 24 hr 30 mg PO DAILY 30 Days Qty: 30 RF: 5 cephalexin [Keflex] 750 mg capsule 750 mg PO BID 7 Days Qty: 14 RF: 0 silver sulfadiazine 1 % cream 1 applic topical BID 14 Days Qty: 50 RF: 0 acetaminophen-codeine 300-30 mg tablet 1 tab PO Q6H PRN (Reason: pain) 7 Days Qty: 10 RF: 0 hydrocortisone 1 % cream 1 applic topical BID Qty: 28.4 RF: 0 metformin 1,000 mg Tablet 1,000 mg PO BID RF: 0 lisinopril 40 mg Tablet 40 mg PO QAM RF: 0 Lantus Solostar U-100 Insulin 100 unit/mL (3 mL) insulin pen 75 unit SUBCUT BID Qty: 15 RF: 0 aspirin 81 mg Tablet,Delayed Release (Dr/Ec) 81 mg PO QAM RF: 0 amlodipine 10 mg tablet 10 mg PO DAILY RF: 0 Lamictal 100 mg tablet 100 mg PO QAM RF: 0 metoprolol tartrate 50 mg tablet 100 mg PO BID RF: 0 mupirocin 2 % ointment 1 applic topical BID Qty: 22 RF: 0 Discharge Orders: Discharge ED (Routine); Ordered 03/14/21 Ordered By: Homero Khanna Referrals: Toña Ivey FNP [Primary Care Provider] - Discharge Diet: Regular Discharge Activity: Resume usual activity Activity Restrictions/Additional Instructions: Follow-up with medical provider as directed. Contact Dr. Womack tomorrow morning to set up an appointment with him to have right great toe reevaluated in the next 7 to 10 days. Continue taking medications as prescribed. Make sure to keep right great toe clean daily and apply either triple antibiotic ointment or Silvadene and bandage return to the ER or your medical provider if condition worsens. Please read and understand discharge instructions. Thank you for choosing [facility] for your healthcare needs today. Please realize this is an emergency room and that we are providing you with a medical screening exam and this may not be complete and all inclusive of all the testing and or work up that you may need to determine your ailment or severity of your illness. It is very important that you follow up as instructed or that you return to the Emergency Department should you have concerns or if your condition changes or worsens in any way. Coding Level of Care Code ED Towboat Operator for Christin Chang Exam Comprehensive
--- NOTE | 2021-03-14 22:24 | XRR_ITS ---
PROCEDURE INFORMATION: Exam: XR Right Foot Exam date and time: 03/14/2021 10:24 PM Age: 40 years old Clinical indication: Pain; Foot; Right; Additional info: Great toe possible infection TECHNIQUE: Imaging protocol: XR Right foot. Views: 3 or more views. COMPARISON: No relevant prior studies available. FINDINGS: Bones/joints: Mild 1st metatarsophalangeal joint osteoarthritis, negative for acute findings. Soft tissues: Normal. XR/XR foot RT min 3V* [id number] IMPRESSION: Mild 1st metatarsophalangeal joint osteoarthritis, negative for acute findings. Radiation Dose CTDIVOL = (mGy): DLP = (mGy-cm)
[2021-03-14] MEDS: cefTRIAXone 1,000 MG in lidocaine 1% 2.1 ML 1 MG IM (23:14)
[2021-03-14] MEDS: neomycin-poly-bacitracin oint 0.9 gm Pkt 1 APPLIC TOPICAL (23:14)
--- NOTE | 2021-03-14 23:15 | PC.NURSE ---
Applied dressing to L great toe with telfa and kerlex.
[2021-03-14 23:20] VITALS: BP 112/78; PULSE 68; RESP 18; O2SAT 98
== END 2021-03-14 23:22 | disposition home or self-care (01) ==
PROVIDERS: Emergency Provider Physician Assistant; PCP Nurse Practitioner Family
DX: Z03.89 Encounter for observation for other suspected diseases and conditions ruled out (principal); Z98.890 Other specified postprocedural states; I10 Essential (primary) hypertension; F17.290 Nicotine dependence, other tobacco product, uncomplicated
CPT/HCPCS: 73630; 96372; 99283; J0696

== ENCOUNTER → 2021-03-16 08:23 | Outpatient (BNVA) | payer OTHER, MEDICAID, SELFPAY ==
[2020-09-16 13:12] VITALS: BP 132/80; BMI 61.5
== END ==
PROVIDERS: PCP Nurse Practitioner Family; Referring Provider Family Medicine; Visit Provider Internal Medicine
DX: E11.9 Type 2 diabetes mellitus without complications (principal); B35.1 Tinea unguium; Z98.890 Other specified postprocedural states; Z79.4 Long term (current) use of insulin; F17.210 Nicotine dependence, cigarettes, uncomplicated; Z71.6 Tobacco abuse counseling
CPT/HCPCS: 99204

== ENCOUNTER 2021-03-18 18:20 | Emergency (ER) | payer OTHER, MEDICAID, SELFPAY ==
[2020-09-16 13:12] VITALS: BP 132/80; BMI 61.5
[2021-03-18 18:42] VITALS: BP 167/123; PULSE 101; RESP 18; TEMP 36.9; O2SAT 97; BMI 59.5
--- NOTE | 2021-03-18 18:59 | W.ED.EXTPRO ---
HPI - Extremity Problem General: Chief complaint: Extremity Problem,Nontraumatic Stated complaint: R Big toe Infected Time Seen by Provider: 03/18/21 18:58 History of Present Illness: HPI Narrative: 40-year-old male patient with diabetes had a toenail removed about 1 week ago. Patient states he was evaluated on Saturday and started on some cephalexin 750 mg due to some concerns of purulent drainage from the wound. Patient completed the cephalexin yesterday but was still concerned due to some redness and swelling in the toe. Patient appears well. Patient denies any fever or chills. Respirations are even lungs are clear to auscultation. Review of Systems General: Reports: 10 or more systems reviewed and unremarkable except in HPI and below Skin/Breast: Reports: other (Redness to great toe at site of toenail removal) PFS ED PFSH: Medical History Alcohol dependence, in remission Benign essential HTN Binge eating disorder Bipolar disorder, in partial remission, most recent episode manic DJD (degenerative joint disease) Dyspnea on exertion Gallstones GERD (gastroesophageal reflux disease) GI disease Morbid obesity Morbid obesity Nephrolithiasis Nephropathy Obstructive sleep apnea Posttraumatic stress disorder Supraventricular tachycardia Tinea cruris Surgical History H/O oral surgery S/P adenoidectomy S/P cholecystectomy S/P hernia repair S/P knee surgery S/P myringotomy with insertion of tube S/P tendon repair S/P vasectomy Family History Other Adopted Social History Smoking risk assessment/counseling performed?: Yes Tobacco counseling given: counseling >3 minutes Alcohol intake: former Year of sobriety/quit date alcohol: 11mo Adopted: Yes Caregiver/support person: No Lives independently: Yes Household members: spouse Housing: Apartment Marital status: Number of children: 2 Highest education level completed: Some College, No Degree service: Yes status: Medically Discharged/Retired branch: [employer] Current occupational status: disabled Pets and animals: Yes Pets & animals: dog(s) History of recent travel: No Leisure activites: games Sexually active: Yes Current gender identity: Male Leda/Christianity: None Special leda needs: No Agree to transfusion: Yes Financial difficulty paying for basics: Not Very Hard Physical Exam Const: COMMON NORMALS: no acute distress and patient oriented x3 GENERAL APPEARANCE: cooperative HENMT: COMMON NORMALS: normocephalic and Normal external nose present HEAD & SCALP: normal to inspection and normocephalic NOSE: Normal external nose present Eye: GENERAL EYE: appearance normal, both eyes and all related structures Neck/C-Spine: COMMON NORMALS: full ROM Chest: COMMONS NORMALS: normal inspection of the chest Resp: COMMON NORMALS: normal respiratory effort EFFORT & INSPECTION: Yes able to speak in complete sentences Cardio: COMMON NORMALS: regular rate and regular rhythm RATE: regular rate RHYTHM: regular rhythm GI: COMMON NORMALS: non-tender Extremity: NARRATIVE EXTREMITY EXAM: Minimal redness and swelling is noted to the great toe of the right foot. Bloody wound noted to the area of toenail avulsion. No streaking or significant swelling is noted to the foot. Neuro: COMMON NORMALS: patient oriented x3 and moves all extremities Psych: COMMON NORMALS: mental status grossly normal and cooperative Skin: COMMON NORMALS: no rashes or lesions noted GENERAL SKIN EXAM: no rashes or lesions noted Course Vital Signs: Vital signs: Vital Signs Temperature 98.4 F 03/18/21 18:42 Pulse Rate 101 H 03/18/21 18:42 Respiratory Rate 18 03/18/21 18:42 Blood Pressure 167/123 03/18/21 18:42 Pulse Oximetry 97 03/18/21 18:42 MDM - Extremity (Nontraumatic) MDM Narrative: Medical decision making narrative: 40-year-old male patient comes in for evaluation of wound from a toenail removal. Patient had been on some cephalexin but completed the course but continues to have some redness and swelling to the toe. On exam we note some mild redness and swelling to the great toe of the right foot. Healing wound is noted. No significant swelling or redness is noted to the main foot though. Differential diagnosis includes but not limited to wound infection, cellulitis, osteomyelitis. X-ray noted no bony destruction or fracture. Recommended switching from cephalexin to ciprofloxacin for better coverage. We will also add mupirocin to the treatment with applications to the open wound on the toe until healed. Patient also knows to follow-up with roll slicing machine tender in 2 to 3 days, or follow-up with the ER for high fever or worsening symptoms. Discharge Plan Discharge Patient Disposition: Home Clinical Impression: Wound infection Condition: Stable Prescriptions: New Cipro 500 mg tablet 500 mg PO BID Qty: 14 RF: 0 Continued mupirocin 2 % ointment 1 applic topical BID Qty: 22 RF: 0 No Action Victoza 2-Henri 0.6 mg/0.1 mL (18 mg/3 mL) pen injector 1.8 mg SUBCUT QAM RF: 0 insulin aspart U-100 [Novolog PenFill U-100 Insulin] 100 unit/mL cartridge 10 unit SUBCUT TID RF: 0 (DME) Custom Molded Orthotics See Rx Instructions .Route .MEDSUPPLY Qty: 1 RF: 0 digoxin 125 mcg (0.125 mg) tablet 125 mcg PO QAM RF: 0 pantoprazole 20 mg tablet,delayed release (DR/EC) 20 mg PO DAILY RF: 0 simvastatin 20 mg tablet 20 mg PO DAILY RF: 0 isosorbide mononitrate 30 mg tablet extended release 24 hr 30 mg PO DAILY 30 Days Qty: 30 RF: 5 cephalexin [Keflex] 750 mg capsule 750 mg PO BID 7 Days Qty: 14 RF: 0 silver sulfadiazine 1 % cream 1 applic topical BID 14 Days Qty: 50 RF: 0 acetaminophen-codeine 300-30 mg tablet 1 tab PO Q6H PRN (Reason: pain) 7 Days Qty: 10 RF: 0 hydrocortisone 1 % cream 1 applic topical BID Qty: 28.4 RF: 0 metformin 1,000 mg Tablet 1,000 mg PO BID RF: 0 lisinopril 40 mg Tablet 40 mg PO QAM RF: 0 Lantus Solostar U-100 Insulin 100 unit/mL (3 mL) insulin pen 75 unit SUBCUT BID Qty: 15 RF: 0 aspirin 81 mg Tablet,Delayed Release (Dr/Ec) 81 mg PO QAM RF: 0 amlodipine 10 mg tablet 10 mg PO DAILY RF: 0 Lamictal 100 mg tablet 100 mg PO QAM RF: 0 metoprolol tartrate 50 mg tablet 100 mg PO BID RF: 0 Discharge Orders: Discharge ED (Routine); Ordered 03/18/21 Ordered By: Wyatt Barker Referrals: Toña Ivey, [employer] MOLD MAKER [Primary Care Provider] - Discharge Diet: Usual diet Discharge Activity: Increase activity as tolerated Patient Instructions: Wound Infection (ED), Opioid Safety Activity Restrictions/Additional Instructions: Keep wound clean and dry. Use Cipro 500 mg twice a day for the next 7 days. Use mupirocin ointment twice a day to the wound until healed. Follow-up with roll slicing machine tender and 3 to 5 days for recheck. Return to the ER for new concerns. Coding Level of Care Code ED Small Piece Cutter for Christin Fwd Exam Comprehensive
--- NOTE | 2021-03-18 19:08 | XRR_ITS ---
PROCEDURE INFORMATION: Exam: XR Right Foot Exam date and time: 03/18/2021 7:08 PM Age: 40 years old Clinical indication: Condition or disease; Other: Cellulitis; Additional info: Cellulitis great toe TECHNIQUE: Imaging protocol: XR Right foot. Views: 3 or more views. COMPARISON: CR (LOW EXM, ) 03/14/2021 10:29 PM FINDINGS: Bones/joints: Normal. Mild degenerative changes Soft tissues: Normal. No significant swelling. No gas in the soft tissues XR/XR foot RT min 3V* [id number] IMPRESSION: No significant findings. Radiation Dose CTDIVOL = (mGy): DLP = (mGy-cm)
[2021-03-18] MEDS: ciprofloxacin 500 mg Tablet PO (20:21)
[2021-03-18] MEDS: mupirocin oint 22 gm 1 APPLIC TOPICAL (20:21)
[2021-03-18 20:38] VITALS: BP 159/89; PULSE 89; RESP 18; O2SAT 97
== END 2021-03-18 20:30 | disposition home or self-care (01) ==
PROVIDERS: Emergency Provider Nurse Practitioner Family; PCP Nurse Practitioner Family
DX: L76.82 Other postprocedural complications of skin and subcutaneous tissue (principal); L08.9 Local infection of the skin and subcutaneous tissue, unspecified; Z79.84 Long term (current) use of oral hypoglycemic drugs; Z79.82 Long term (current) use of aspirin; Z79.4 Long term (current) use of insulin; I10 Essential (primary) hypertension
CPT/HCPCS: 73630; 99283

== ENCOUNTER 2021-05-18 20:08 | Emergency (ER) | payer OTHER, MEDICAID, SELFPAY ==
[2020-09-16 13:12] VITALS: BP 132/80; BMI 61.5
[2021-05-18 20:32] VITALS: BP 141/96; PULSE 97; RESP 18; TEMP 36.6; O2SAT 97; BMI 60.2
--- NOTE | 2021-05-18 20:47 | W.ED.EXTPRO ---
HPI - Extremity Problem General: Chief complaint: Extremity Injury, Upper Stated complaint: LEFT HAND INJURY Time Seen by Provider: 05/18/21 20:38 History of Present Illness: HPI Narrative: Patient arrives via ambulance with an abrasion to left hand. Patient punched a bedroom door window and hand started bleeding and he felt he had some shards of glass in his hand. Tetanus is up-to-date MD Complaint: extremity pain Onset (ago): minute(s) Location: left and upper extremity Associated symptoms: Reports no associated symptoms; Deny chest pain, fever(s) or rash Review of Systems Const: Denies: fever(s), chills or body aches Eyes: Denies: change in vision or blurry vision ENMT: Denies: throat pain or nasal congestion Card: Denies: chest pain or dyspnea on exertion Resp: Denies: dyspnea, productive cough or non-productive cough GI: Denies: abdominal pain, nausea or vomiting : Denies: difficulty urinating Musc: Denies: extremity pain Skin/Breast: Reports: other (Cut and abrasion to left hand from punching a window in a door.); Denies: rash Neuro: Denies: headache(s) Psych: Denies: anxiety or depression Carl/Lymph: Denies: easy bruising PFSH ED PFSH: Medical History Alcohol dependence, in remission Benign essential HTN Binge eating disorder Bipolar disorder, in partial remission, most recent episode manic DJD (degenerative joint disease) Dyspnea on exertion Gallstones GERD (gastroesophageal reflux disease) GI disease Hx MRSA infection Morbid obesity Morbid obesity Nephrolithiasis Nephropathy Obstructive sleep apnea Posttraumatic stress disorder Supraventricular tachycardia Tinea cruris Surgical History H/O oral surgery History of ankle surgery S/P adenoidectomy S/P cholecystectomy S/P hernia repair S/P knee surgery S/P myringotomy with insertion of tube S/P tendon repair S/P vasectomy Family History Other Adopted Social History Smoking risk assessment/counseling performed?: Yes Tobacco counseling given: counseling >3 minutes Alcohol intake: former Year of sobriety/quit date alcohol: 11mo Adopted: Yes Caregiver/support person: No Lives independently: Yes Household members: spouse Housing: Apartment Marital status: Number of children: 2 Highest education level completed: Some College, No Degree service: Yes status: Medically Discharged/Retired branch: [employer] Current occupational status: disabled Pets and animals: Yes Pets & animals: dog(s) History of recent travel: No Leisure activites: games Sexually active: Yes Current gender identity: Male Leda/Synagogue: None Special leda needs: No Agree to transfusion: Yes Financial difficulty paying for basics: Not Very Hard Physical Exam Const: COMMON NORMALS: no acute distress GENERAL APPEARANCE: cooperative Psych: COMMON NORMALS: mental status grossly normal APPEARANCE: Yes grossly normal ATTITUDE: Yes calm Skin: OTHER: Patient has 1 abrasion to his left hand dorsal surface below the #4 knuckle. Area was clean 3 small. Pieces of glass less than 1 mm found on the arm nothing in his cut. Area was cleaned bone and movement neurovascular status intact. Course Vital Signs: Vital signs: Vital Signs Temperature 98 F 05/18/21 20:32 Pulse Rate 97 05/18/21 20:32 Respiratory Rate 18 05/18/21 20:32 Blood Pressure 141/96 05/18/21 20:32 Pulse Oximetry 97 05/18/21 20:32 Discharge Plan Discharge Patient Disposition: Home Clinical Impression: Abrasion Condition: Stable Prescriptions: No Action (DME) Custom Molded Orthotics See Rx Instructions .Route .MEDSUPPLY Qty: 1 RF: 0 digoxin 125 mcg (0.125 mg) tablet 125 mcg PO QAM RF: 0 pantoprazole 20 mg tablet,delayed release (DR/EC) 20 mg PO DAILY RF: 0 simvastatin 20 mg tablet 20 mg PO DAILY RF: 0 isosorbide mononitrate 30 mg tablet extended release 24 hr 30 mg PO DAILY 30 Days Qty: 30 RF: 5 silver sulfadiazine 1 % cream 1 applic topical BID 14 Days Qty: 50 RF: 0 acetaminophen-codeine 300-30 mg tablet 1 tab PO Q6H PRN (Reason: pain) 7 Days Qty: 10 RF: 0 sulfamethoxazole-trimethoprim [Bactrim DS] 800-160 mg tablet 1 tab PO BID 7 Days Qty: 14 RF: 0 Lantus Solostar U-100 Insulin 100 unit/mL (3 mL) insulin pen 75 unit SUBCUT BID Qty: 15 RF: 0 Victoza 2-Henri 0.6 mg/0.1 mL (18 mg/3 mL) pen injector 1.8 mg SUBCUT QAM Qty: 6 RF: 0 metformin 1,000 mg tablet 1,000 mg PO BID Qty: 180 RF: 0 insulin aspart U-100 [Novolog Flexpen U-100 Insulin] 100 unit/mL (3 mL) insulin pen 10 unit SUBCUT TID Qty: 15 RF: 0 hydrocortisone 1 % cream 1 applic topical BID Qty: 28.4 RF: 0 lisinopril 40 mg Tablet 40 mg PO QAM RF: 0 aspirin 81 mg Tablet,Delayed Release (Dr/Ec) 81 mg PO QAM RF: 0 amlodipine 10 mg tablet 10 mg PO DAILY RF: 0 Lamictal 100 mg tablet 100 mg PO QAM RF: 0 metoprolol tartrate 50 mg tablet 100 mg PO BID RF: 0 mupirocin 2 % ointment 1 applic topical BID Qty: 22 RF: 0 Discharge Orders: Discharge ED (Routine); Ordered 05/18/21 Ordered By: Pavan Sorto Referrals: Toña Ivey, LAUNCH OPERATOR [Primary Care Provider] - Discharge Diet: Usual diet Discharge Activity: Resume usual activity Patient Instructions: Abrasion (ED) Activity Restrictions/Additional Instructions: Can use Neosporin and/or Vaseline petroleum jelly keep areas of abrasion moist. Watch for any small bits of glass coming out. Keep clean. Follow-up your primary care provider as needed. Coding Level of Care Code ED Academic Director for Christin Chang
== END 2021-05-18 20:55 | disposition home or self-care (01) ==
PROVIDERS: Emergency Provider Nurse Practitioner Family; PCP Family Medicine
DX: S60.512A Abrasion of left hand, initial encounter (principal); Z79.84 Long term (current) use of oral hypoglycemic drugs; Z79.82 Long term (current) use of aspirin; Z79.4 Long term (current) use of insulin; I10 Essential (primary) hypertension; W22.09XA Striking against other stationary object, initial encounter
CPT/HCPCS: 99281

== ENCOUNTER → 2021-05-24 16:39 | Outpatient (BNVA) | payer OTHER, MEDICAID, SELFPAY ==
[2020-09-16 13:12] VITALS: BP 132/80; BMI 61.5
== END ==
PROVIDERS: PCP Family Medicine; Visit Provider Family Medicine
DX: S69.90XA Unspecified injury of unspecified wrist, hand and finger(s), initial encounter (principal); W22.8XXA Striking against or struck by other objects, initial encounter
CPT/HCPCS: 73130

== ENCOUNTER 2021-05-28 07:19 | Emergency (ER) | payer OTHER, MEDICAID, SELFPAY ==
[2020-09-16 13:12] VITALS: BP 132/80; BMI 61.5
--- NOTE | 2021-05-28 07:20 | CTR_ITS ---
PROCEDURE INFORMATION: Exam: CT Abdomen And Pelvis With Contrast Exam date and time: 05/28/2021 7:20 AM Age: 40 years old Clinical indication: Abdominal pain; Prior surgery; Surgery date: 6+ months; Patient HX: Periumbilical pain x 1 day, HX multiple hernia repairs; Additional info: Abd pain TECHNIQUE: Imaging protocol: Computed tomography of the abdomen and pelvis with contrast. Radiation optimization: All CT scans at this facility use at least one of these dose optimization techniques: automated exposure control; mA and/or kV adjustment per patient size (includes targeted exams where dose is matched to clinical indication); or iterative reconstruction. Contrast material: VISIPAQUE 320; Contrast volume: 95 ml; Contrast route: INTRAVENOUS (IV); COMPARISON: CT abdomen pelvis w con* [id number] 05/14/2019 11:28 PM RADIATION DOSE METRICS: Total DLP (mGy-cm): 1910.6 FINDINGS: Tubes, catheters and devices: Previous anterior abdominal wall mesh repair. Liver: Mild diffuse hypoattenuation of the liver is present consistent with hepatic steatosis. Gallbladder and bile ducts: The gallbladder is surgically absent, with metallic clips in the gallbladder fossa. No extrahepatic biliary ductal dilatation or calculus. Pancreas: Normal. No ductal dilation. Spleen: Normal. No splenomegaly. Adrenal glands: Normal. No mass. Kidneys and ureters: Slight interval increase in mild right renal pelvicaliectasis. Stomach and bowel: Unremarkable. No obstruction. No mucosal thickening. Appendix: The vermiform appendix is normal. Intraperitoneal space: No free air. No significant fluid collection. Vasculature: Unremarkable. No abdominal aortic aneurysm. Lymph nodes: No enlarged lymph nodes. Urinary bladder: Unremarkable as visualized. Reproductive: Unremarkable as visualized. Bones/joints: Mild L4-L5 retrolisthesis. Soft tissues: Persistent paraumbilical diastasis recti. CT/CT abdomen pelvis w con* [id number] IMPRESSION: 1. Slight interval increase in mild right renal pelvicaliectasis. No obstructing calculus or mass identified. Clinical correlation with the patient's specific symptomatology is recommended. 2. Previous anterior abdominal wall mesh repair. 3. Persistent paraumbilical diastasis recti. 4. Fatty infiltration of the liver. 5. Prior cholecystectomy.
[2021-05-28 07:24] VITALS: BP 164/108; PULSE 78; RESP 18; TEMP 36.7; O2SAT 97; BMI 60.1
--- NOTE | 2021-05-28 07:45 | ED_ITS ---
HPI - General Adult General: Chief complaint: Abdominal Pain Stated complaint: ABD PAIN Time Seen by Provider: 05/28/21 07:20 History of Present Illness: HPI narrative: Patient is a 40-year-old male with history of DM, morbid obesity, hx of epigastric hernia s/p multiple repairs (most recently in 2016 with mesh) presenting to the emergency room with complaints of acute epigastric bulge and pain for the last 20 minutes. Patient tells me that he was at home when noticed midepigastric bulge and pain. Patient reports significant pain. Denies any nausea/vomiting, fever/chills. Reports still able to pass gas. Denies any difficulty stooling. Patient denies any melena hematochezia, or urinary complaints. Other prior abdominal surgeries include cholecystectomy. No hx of kidney stones. Onset: 20 minutes ago Duration:20 minutes Location:home Severity:moderate Review of Systems Narrative: Constitutional: No fever, no chills. HEENT: No vision changes CV: No chest pain, no palpitations PULM: no cough, no dyspnea. GI: +mid-epgiastric hernia and abdominal pain, no N/V/D. : No dysuria MSKEL: No muscle pain SKIN: No new rashes, no lesions. NEURO: No headache, no focal weakness. HEME: No visible bruises PSYCH: Normal mood PFSH ED PFSH: Medical History Alcohol dependence, in remission Benign essential HTN Binge eating disorder Bipolar disorder, in partial remission, most recent episode manic DJD (degenerative joint disease) Dyspnea on exertion Gallstones GERD (gastroesophageal reflux disease) GI disease Hx MRSA infection Morbid obesity Morbid obesity Nephrolithiasis Nephropathy Obstructive sleep apnea Posttraumatic stress disorder Supraventricular tachycardia Tinea cruris Surgical History H/O oral surgery History of ankle surgery S/P adenoidectomy S/P cholecystectomy S/P hernia repair S/P knee surgery S/P myringotomy with insertion of tube S/P tendon repair S/P vasectomy Family History Other Adopted Social History Smoking and tobacco status: current every day smoker (VAPE) e-cigarettes E- Cigarette Details: vaporizer device and with nicotine Smoking risk assessment/counseling performed?: Yes Tobacco counseling given: counseling >3 minutes Alcohol intake: former Year of sobriety/quit date alcohol: 11mo Adopted: Yes Caregiver/support person: No Lives independently: Yes Household members: spouse Housing: Apartment Marital status: Number of children: 2 Highest education level completed: Some College, No Degree service: Yes status: Medically Discharged/Retired branch: [employer] Current occupational status: disabled Pets and animals: Yes Pets & animals: dog(s) History of recent travel: No Leisure activites: games Sexually active: Yes Current gender identity: Male Leda/Restorationist: None Special leda needs: No Agree to transfusion: Yes Financial difficulty paying for basics: Not Very Hard Physical Exam Narrative: EXAM NARRATIVE: Head: Atraumatic Eyes: PERRL, conjunctiva without injection ENT: Mucous membrane moist NECK: Supple, ROM intact LUNGS: LCTAB, no crackles/rhonchi CV: RRR ABDOMEN: Soft, +moderate mid-epigastric abdominal buldge reducible with mild tenderness to palpation. No superficial hernia erythema/warmth. Hernia does not appear to be reducible. NO guarding rebound, guarding, rigidity. No CVA ten derness to percussion. Neg Cai/Neg McBurney's point tenderness, no suprabupic tenderness to palpation. EXTREMITY: Normal ROM SKIN: No rash or erythema NEURO: Awake and alert, no focal motor deficits PSYCH: Normal mood and affect Course Vital Signs: Vital signs: Vital Signs Temperature 98.0 F 05/28/21 07:24 Pulse Rate 79 05/28/21 08:34 Respiratory Rate 18 05/28/21 07:24 Blood Pressure 175/121 05/28/21 08:34 Pulse Oximetry 95 05/28/21 08:34 MDM - General Adult MDM Narrative: Medical decision making narrative: This 40-year-old male with a history of multiple epigastric hernia repairs presenting to the emergency room with acute abdominal bulge and pain. There is no signs of any erythema, crepitus, warmth to suggest that this is strangulated hernia. Possible incarceration at the present time. Workup: CBC, CMP, lipase, lactic acid, CT abdomen pelvis Prevention: Pain medicine, IVF Work-up today showed count 7.6. Lactic acid within normal limit today. CT abdomen pelvis did not show any signs of incarcerated hernia or gross hernia. Patient's mesh appears to be working and intact. Given the fact the patient has no signs of hernia and intact mesh with reassuring blood work, I do not suspect the patient has acute incarcerated or strangulated hernia at this point time. Patient received GI cocktail the emergency room with significant improvement in pain. Patient is able to tolerate p.o. without any difficulty. Lipase wnl. Present time, patient tells me that he will follow-up with his provider at the [place] [facility] for further evaluation of his abdominal pain Incidental findings of R renal pelvicaliectasis discussed extensively with patient. Patient received a copy of the CT report with the documented findings. Patient is instructed to follow up urgently with specialists. I have given patient follow up with our piano case and bench assembler to be seen by our outpatient Urologist for the R renal pelvicaliectasis. Patient aware of a call from our piano case and bench assembler to schedule for appointment(s) and verbalizes understanding of the importance of following up. Rx tylenol PRN abd pain, maalox/pepcid PRN dyspepsia, and zofran PRN nausea/vomiting Disposition: Discharge. Patient counseled regarding diagnostic impression, treatment plan. Patient given ED strict return precautions to return for continuation, worsening, or development of new symptoms. Instructed to f/u w/ PCP regarding symptoms today. Patient verbalized understanding. Lab Data: Labs: Lab Results 05/28/21 05/28/21 05/28/21 08:37 08:37 08:37 WBC 7.6 10^3/uL 10^3/ uL (4.0-10.0) RBC 6.20 10^6/uL H 10 ^6/uL (4.1-5.3) Hgb 16.2 g/dL g/dL (11.7-16.6) Hct 51.6 % % (42.0-52.0) MCV 83.2 fl fl (80-94) MCH 26.1 pg L pg (28.0-34.0) MCHC 31.4 g/dL g/dL (30.0-36.0) RDW 12.9 % % (12.1-15.1) Plt Count 313 10^3/cmm 10^3 /cmm (130-400) MPV 10.1 fL fL (7.4-10.4) Neut % (Auto) 54.1 % % Lymph % (Auto) 34.3 % % Gentry % (Auto) 7.4 % % Eos % (Auto) 2.5 % % Baso % (Auto) 1.2 % % Neut # (Auto) 4.11 10^3/uL 10^3 /uL (1.8-7.7) Lymph # (Auto) 2.6 10^3/uL 10^3/ uL (0.8-4.8) Gentry # (Auto) 0.6 10^3/uL 10^3/ uL (0.2-0.9) Eos # (Auto) 0.2 10^3/uL 10^3/ uL (0.0-0.8) Baso # (Auto) 0.1 10^3/uL 10^3/ uL (0.0-0.1) Nucleated RBC % (a uto) 0 % % Nucleated RBCs # 0.0 /100WBC /100W BC PT INR APTT Sodium 134 mmol/L L mmol /L (136-145) Potassium 4.0 mmol/L mmol/L (3.5-5.1) Chloride 97 mmol/L L mmol/ L (98-107) Carbon Dioxide 23 mmol/L mmol/L (22-29) Anion Gap 18.0 (5-19) BUN 12 mg/dL mg/dL (6-20) Creatinine 0.7 mg/dL mg/dL (0.7-1.2) GFR Calculation 124.3 mL/min mL/m in (90-130) Glucose 328 mg/dL H mg/dL (65-115) Calculated Osmolal ity 291 mOsm/kg mOsm/ kg (285-295) Lactate 1.4 mmol/L mmol/L (0.5-2.2) Calcium 8.8 mg/dL mg/dL (8.5-10.5) Total Bilirubin 0.9 mg/dL mg/dL (0.15-1.2) AST 39 U/L U/L (0-40) ALT 65 U/L H U/L (0-41) Alkaline Phosphata se 106 IU/L IU/L (40-130) Total Protein 7.4 g/dL g/dL (6.6-8.7) Albumin 4.1 g/dL g/dL (3.5-5.2) Globulin 3.3 g/dL g/dL (1.3-4.6) Lipase 45 U/L U/L (13-60) Urine Color Urine Appearance Urine pH Ur Specific Gravit y Urine Protein Urine Glucose (UA) Urine Ketones Urine Blood Urine Nitrate Urine Bilirubin Urine Urobilinogen Ur Leukocyte Bethanie ase 3 05/28/21 05/28/21 08:37 08:53 WBC RBC Hgb Hct MCV MCH MCHC RDW Plt Count MPV Neut % (Auto) Lymph % (Auto) Gentry % (Auto) Eos % (Auto) Baso % (Auto) Neut # (Auto) Lymph # (Auto) Gentry # (Auto) Eos # (Auto) Baso # (Auto) Nucleated RBC % (a uto) Nucleated RBCs # PT 13.20 SECONDS SEC ONDS (12.1-14.9) INR 0.97 (0.8-1.2) APTT 26.0 SECONDS SECO NDS (23.9-36.7) Sodium Potassium Chloride Carbon Dioxide Anion Gap BUN Creatinine GFR Calculation Glucose Calculated Osmolal ity Lactate Calcium Total Bilirubin AST ALT Alkaline Phosphata se Total Protein Albumin Globulin Lipase Urine Color Straw (Yellow) Urine Appearance Clear (CLEAR) Urine pH 5 (5-7) Ur Specific Gravit y 1.020 (1.005-1.030) Urine Protein Neg (Negative) Urine Glucose (UA) 4+ H (Normal) Urine Ketones Negative (Negative) Urine Blood Neg (Negative) Urine Nitrate Negative (Negative) Urine Bilirubin Neg (Negative) Urine Urobilinogen Norm mg/dL mg/dL (Negative) Ur Leukocyte Bethanie ase Negative (Negative) Imaging Data^: Other Imaging: Radiologist's impression: [address] [id number] Scan ReportSigned with Addenda Patient: Tyree Buckley #: [id number]: 1980Acct#:[id number]/Sex: 40 / MADM Date: 05/28/21Loc: ERRoom/Bed:Attending Dr: Ordering Provider/Ordering MD: Anabel Amaro MD Date of Service: 05/28/21 Procedure(s): CT abdomen pelvis w con* [id number] Accession Number(s): [id number] Report Number: [id number]/CT abdomen pelvis w con* [id number] THIS REPORT CONTAINS FINDINGS THAT MAY BE CRITICAL TO PATIENT CARE. The findings were verbally communicated by me to DR. ANABEL AMARO via telephone conference at 9:28 AM MATHEMATICAL SCIENCES PROFESSOR on 05/28/2021. The findings were acknowledged and understood. Addendum Dictated By: Dann Yeboah MDAddendum Signed By: Dann Yeboah MDSigned Date/Time:05/28/21 0930Addendum Cosigned By: PROCEDURE INFORMATION: Exam: CT Abdomen And Pelvis With Contrast Exam date and time: 05/28/2021 7:20 AM Age: 40 years old Clinical indication: Abdominal pain; Prior surgery; Surgery date: 6+ months; Patient HX: Periumbilical pain x 1 day, HX multiple hernia repairs; Additional info: Abd pain TECHNIQUE: Imaging protocol: Computed tomography of the abdomen and pelvis with contrast. Radiation optimization: All CT scans at this facility use at least one of these dose optimization techniques: automated exposure control; mA and/or kV adjustment per patient size (includes targeted exams where dose is matched to clinical indication); or iterative reconstruction. Contrast material: VISIPAQUE 320; Contrast volume: 95 ml; Contrast route: INTRAVENOUS (IV); COMPARISON: CT abdomen pelvis w con* [id number] 05/14/2019 11:28 PM RADIATION DOSE METRICS: Total DLP (mGy-cm): 1910.6 FINDINGS: Tubes, catheters and devices: Previous anterior abdominal wall mesh repair. Liver: Mild diffuse hypoattenuation of the liver is present consistent with hepatic steatosis. Gallbladder and bile ducts: The gallbladder is surgically absent, with metallic clips in the gallbladder fossa. No extrahepatic biliary ductal dilatation or calculus. Pancreas: Normal. No ductal dilation. Spleen: Normal. No splenomegaly. Adrenal glands: Normal. No mass. Kidneys and ureters: Slight interval increase in mild right renal pelvicaliectasis. Stomach and bowel: Unremarkable. No obstruction. No mucosal thickening. Appendix: The vermiform appendix is normal. Intraperitoneal space: No free air. No significant fluid collection. Vasculature: Unremarkable. No abdominal aortic aneurysm. Lymph nodes: No enlarged lymph nodes. Urinary bladder: Unremarkable as visualized. Reproductive: Unremarkable as visualized. Bones/joints: Mild L4-L5 retrolisthesis. Soft tissues: Persistent paraumbilical diastasis recti. CT/CT abdomen pelvis w con* [id number] IMPRESSION: 1. Slight interval increase in mild right renal pelvicaliectasis. No obstructing calculus or mass identified. Clinical correlation with the patient's specific symptomatology is recommended. 2. Previous anterior abdominal wall mesh repair. 3. Persistent paraumbilical diastasis recti. 4. Fatty infiltration of the liver. 5. Prior cholecystectomy. Dictated By:Dann Yeboah MDSigned By:Dann Yeboah MDSigned Date/Time:05/28/21918DD/ 9 Discharge Plan Discharge Prescriptions: No Action (DME) Custom Molded Orthotics See Rx Instructions .Route .MEDSUPPLY Qty: 1 RF: 0 digoxin 125 mcg (0.125 mg) tablet 125 mcg PO QAM RF: 0 pantoprazole 20 mg tablet,delayed release (DR/EC) 20 mg PO DAILY RF: 0 simvastatin 20 mg tablet 20 mg PO DAILY RF: 0 isosorbide mononitrate 30 mg tablet extended release 24 hr 30 mg PO DAILY 30 Days Qty: 30 RF: 5 silver sulfadiazine 1 % cream 1 applic topical BID 14 Days Qty: 50 RF: 0 cephalexin 500 mg capsule 500 mg PO BID Qty: 14 RF: 0 Lantus Solostar U-100 Insulin 100 unit/mL (3 mL) insulin pen 75 unit SUBCUT BID Qty: 15 RF: 0 Victoza 2-Henri 0.6 mg/0.1 mL (18 mg/3 mL) pen injector 1.8 mg SUBCUT QAM Qty: 6 RF: 0 metformin 1,000 mg tablet 1,000 mg PO BID Qty: 180 RF: 0 insulin aspart U-100 [Novolog Flexpen U-100 Insulin] 100 unit/mL (3 mL) insulin pen 10 unit SUBCUT TID Qty: 15 RF: 0 hydrocortisone 1 % cream 1 applic topical BID Qty: 28.4 RF: 0 lisinopril 40 mg Tablet 40 mg PO QAM RF: 0 aspirin 81 mg Tablet,Delayed Release (Dr/Ec) 81 mg PO QAM RF: 0 amlodipine 10 mg tablet 10 mg PO DAILY RF: 0 Lamictal 100 mg tablet 100 mg PO QAM RF: 0 metoprolol tartrate 50 mg tablet 100 mg PO BID RF: 0 mupirocin 2 % ointment 1 applic topical BID Qty: 22 RF: 0 Coding Level of Care Code ED Slice Plug Cutter Operator for Christin Chang
[2021-05-28] MEDS: sodium chloride 0.9% 1,000 ML 999 ML IV (08:28)
[2021-05-28] MEDS: HYDROmorphone 1 mg/mL INJ 1 mL 0.5 MG IVP (08:30)
[2021-05-28 08:34] VITALS: BP 175/121; PULSE 79; O2SAT 95
[2021-05-28 08:47] LABS: Basophils # 0.1 10^3/uL (0.0-0.1); Basophils % 1.2 %; Eosinophils # 0.2 10^3/uL (0.0-0.8); Eosinophils % 2.5 %; Hematocrit 51.6 % (42.0-52.0); Hemoglobin 16.2 g/dL (11.7-16.6); Lymphocytes # 2.6 10^3/uL (0.8-4.8); Lymphocytes % 34.3 %; Mean Corpuscular HGB Conc 31.4 g/dL (30.0-36.0); Mean Corpuscular Hemoglobin 26.1 pg (28.0-34.0); Mean Corpuscular Volume 83.2 fl (80-94); Mean Platelet Volume 10.1 fL (7.4-10.4); Monocytes # 0.6 10^3/uL (0.2-0.9); Monocytes % 7.4 %; Neutrophils # 4.11 10^3/uL (1.8-7.7); Neutrophils % 54.1 %; Nucleated Red Blood Cells % 0 %; Platelet Count 313 10^3/cmm (130-400); Red Cell Distribution Width 12.9 % (12.1-15.1); White Blood Count 7.6 10^3/uL (4.0-10.0)
[2021-05-28 09:00] LABS: Add Urine Microscopic? NO; Charge for UA Resulting for Rev
[2021-05-28] MEDS: iodixanol 320 mg/mL 100mL Btl IV (09:05)
[2021-05-28 09:07] LABS: Albumin Level 4.1 g/dL (3.5-5.2); Alkaline Phosphatase 106 IU/L (40-130); Aspartate Amino Transferase 39 U/L (0-40); Blood Urea Nitrogen 12 mg/dL (6-20); Calcium 8.8 mg/dL (8.5-10.5); Carbon Dioxide 23 mmol/L (22-29); Chloride 97 mmol/L (98-107); Globulin 3.3 g/dL (1.3-4.6); Glomerular Filtration Rate 124.3 mL/min (90-130); Glucose 328 mg/dL (65-115); Lipase 45 U/L (13-60); Osmolality Calculated 291 mOsm/kg (285-295); Sodium 134 mmol/L (136-145); Total Bilirubin 0.9 mg/dL (0.15-1.2); Total Protein 7.4 g/dL (6.6-8.7)
[2021-05-28 09:08] LABS: Lactate (Lactic Acid level) 1.4 mmol/L (0.5-2.2)
[2021-05-28 09:09] LABS: Urine Appearance Clear (CLEAR); Urine Color Straw (Yellow); pH Urine 5 (5-7)
[2021-05-28 09:10] LABS: Bilirubin Urine Neg (Negative); Blood Urine Neg (Negative); Glucose Urine UA 4+ (Normal); Ketones Urine Negative (Negative); Leukocyte Esterase Urine Negative (Negative); Nitrate Urine Negative (Negative); Protein Urine Neg (Negative); Urobilinogen Urine Norm (Negative)
[2021-05-28 09:14] LABS: INR 0.97 (0.8-1.2)
[2021-05-28 09:37] LABS: Alanine Aminotransferase 65 U/L (0-41)
[2021-05-28 11:21] VITALS: BP 175/121; PULSE 79; O2SAT 95
--- NOTE | 2021-05-30 09:29 | DCPLANNER ---
Addendum entered by Katie Espinosa 06/16/21 06:02: university manager was contacted and was told that patient could follow up with primary care physician. Original Note: university manager had message to schedule a follow up appointment for patient with Dr. Mitchell. university manager sent patients information to Rosibel Giordano at Dr. Ghosh office thru task architect manager. Patients information will be printed and reviewed. Clinic will call patient with appointment information. Patient has [facility] insurance, case sealer sent patients information to Alysia with [facility], for the authorization process could be started.
== END 2021-05-28 11:22 | disposition home or self-care (01) ==
PROVIDERS: Emergency Provider Emergency Medicine
DX: R10.9 Unspecified abdominal pain (principal); Z79.82 Long term (current) use of aspirin; Z79.4 Long term (current) use of insulin; I10 Essential (primary) hypertension; F17.290 Nicotine dependence, other tobacco product, uncomplicated
CPT/HCPCS: 74177; 80053; 81003; 83605; 83690; 85025; 85610; 85730; 96361; 96374; 99284; J1170; J7030; Q9967

== ENCOUNTER → 2021-06-08 09:56 | Outpatient (BNVA) | payer OTHER, MEDICAID, SELFPAY ==
[2020-09-16 13:12] VITALS: BP 132/80; BMI 61.5
== END ==
PROVIDERS: Visit Provider Internal Medicine
DX: E11.9 Type 2 diabetes mellitus without complications (principal); B35.1 Tinea unguium; Z79.4 Long term (current) use of insulin; Z79.84 Long term (current) use of oral hypoglycemic drugs; Z68.43 Body mass index [BMI] 50.0-59.9, adult
CPT/HCPCS: 99214

== ENCOUNTER 2021-06-13 07:46 | Outpatient (CLI) | payer MEDICAID, SELFPAY ==
[2021-06-12 09:39] VITALS: BP 132/80; BMI 61.5
[2021-06-13 09:17] LABS: Estmated Average Glucose 309; Hemoglobin A1C 12.4 % (4.0-6.0)
[2021-06-13 09:20] LABS: Alanine Aminotransferase 45 U/L (0-41); Albumin Level 4.1 g/dL (3.5-5.2); Alkaline Phosphatase 104 IU/L (40-130); Anion Gap 19.1 (5-19); Aspartate Amino Transferase 29 U/L (0-40); Blood Urea Nitrogen 9 mg/dL (6-20); Carbon Dioxide 21 mmol/L (22-29); Chloride 98 mmol/L (98-107); Chol HDL Ratio 4.88 mg/dL (1.0-5.00); Cholesterol 166 mg/dL (0-200); Globulin 2.8 g/dL (1.3-4.6); Glomerular Filtration Rate 124.3 mL/min (90-130); Glucose 300 mg/dL (65-115); HDL Cholesterol 34 mg/dL (60-100); LDL Cholesterol Calculated 89 mg/dL (50-129); LDL HDL Ratio 2.62 RATIO (0.00-3.22); Osmolality Calculated 288 mOsm/kg (285-295); Potassium 4.1 mmol/L (3.5-5.1); Sodium 134 mmol/L (136-145); Thyroid Stimulating Hormone 0.86 uIU/mL (0.27-4.20); Total Bilirubin 0.8 mg/dL (0.15-1.2); Total Protein 6.9 g/dL (6.6-8.7); Triglycerides 213 mg/dL (0-150)
[2021-06-13 10:08] LABS: Cortisol Random 0.77 ug/dL (2.47-19.5)
== END 2021-06-13 07:47 | disposition home or self-care (01) ==
PROVIDERS: Visit Provider Internal Medicine
DX: E11.9 Type 2 diabetes mellitus without complications (principal); E66.01 Morbid (severe) obesity due to excess calories; I47.1 Supraventricular tachycardia; R07.89 Other chest pain
CPT/HCPCS: 36415; 80053; 80061; 82533; 83036; 84443

== ENCOUNTER 2021-06-26 19:39 | Emergency (ER) | payer OTHER, MEDICAID, SELFPAY ==
[2021-06-12 09:39] VITALS: BP 132/80; BMI 61.5
[2021-06-26 21:34] VITALS: BP 159/108; PULSE 87; RESP 20; TEMP 36.8; O2SAT 97; BMI 58.8
--- NOTE | 2021-06-26 23:00 | XRR_ITS ---
PROCEDURE INFORMATION: Exam: XR Lumbosacral Spine Exam date and time: 06/26/2021 11:00 PM Age: 40 years old Clinical indication: Other: Low back pain; Patient HX: Fell today lower back pain; Additional info: Fall injury with low back pain TECHNIQUE: Imaging protocol: XR of the lumbosacral spine. Views: 2 or 3 views. COMPARISON: CT lumbar spine wo con* [id number] 08/27/2019 8:35 PM FINDINGS: Bones/joints: Normal. No acute fracture. Normal alignment. Soft tissues: Unremarkable. XR/XR lumbar spine 2-3V* [id number] IMPRESSION: No acute findings.
--- NOTE | 2021-06-26 23:01 | ED_ITS ---
HPI - Fall General: Chief Complaint: Fall Stated Complaint: Injury Back,Finger lt Hand Time Seen by Provider: 06/26/21 22:35 History of Present Illness: HPI Narrative: Patient is a 40-year-old male comes to the ED with back pain and left finger injury after fall. Patient states fall occurred a couple hours prior to arrival. Says he was helping a [employer] hallway some trash. He picked up a microwave and use the cord to try to swing it into a trash pile. He says the cord broke during mid swing causing him to fall backwards onto lower back. He is not sure how it happened but he noticed that his left hand third digit had small cut to the distal tip of nail and nailbed. Patient is worried about the cut on his finger since he has diabetes and is concerned it could get infected or not heal well. His back pain is located in his lower back and does not radiate anywhere else. He rates his back pain currently an 8 out of 10. He has not taken anything for his back pain. Denies any bladder or bowel incontinence, pelvic anesthesia or weakness to lower extrem ities. Patient is up-to-date on his tetanus. Associated symptoms-after fall: Denies abdominal pain, chest pain, headache(s), hematuria or neck pain Review of Systems Const: Denies: fever(s), chills or fatigue Eyes: Denies: change in vision or eye discomfort ENMT: Denies: throat pain, odynophagia, nasal discharge or nasal congestion Card: Denies: chest pain, palpitations, edema, swelling of feet/ankles, dyspnea on exertion or orthopnea Resp: Denies: dyspnea, productive cough or non-productive cough GI: Denies: abdominal pain, nausea, vomiting, diarrhea, constipation or hematochezia : Denies: flank pain, difficulty urinating, dysuria or hematuria Musc: Reports: back pain; Denies: neck pain or extremity swelling Skin/Breast: Reports: new lesions (Superficial cut to distal tip of third digit.); Denies: rash Neuro: Denies: headache(s), numbness in extremities or weakness in extremities [facility] ED PFSH: Medical History Alcohol dependence, in remission Benign essential HTN Binge eating disorder Bipolar disorder, in partial remission, most recent episode manic DJD (degenerative joint disease) Dyspnea on exertion Gallstones GERD (gastroesophageal reflux disease) GI disease Hx MRSA infection Morbid obesity Morbid obesity Nephrolithiasis Nephropathy Obstructive sleep apnea Posttraumatic stress disorder Supraventricular tachycardia Tinea cruris Surgical History H/O oral surgery History of ankle surgery S/P adenoidectomy S/P cholecystectomy S/P hernia repair S/P knee surgery S/P myringotomy with insertion of tube S/P tendon repair S/P vasectomy Family History Other Adopted Social History Smoking risk assessment/counseling performed?: Yes Tobacco counseling given: counseling >3 minutes Alcohol intake: former Year of sobriety/quit date alcohol: 11mo Adopted: Yes Caregiver/support person: No Lives independently: Yes Household members: spouse Housing: Apartment Marital status: Number of children: 2 Highest education level completed: Some College, No Degree service: Yes status: Medically Discharged/Retired branch: [employer] Current occupational status: disabled Pets and animals: Yes Pets & animals: dog(s) History of recent travel: No Leisure activites: games Sexually active: Yes Current gender identity: Male Leda/Zoroastrianism: None Special leda needs: No Agree to transfusion: Yes Financial difficulty paying for basics: Not Very Hard Physical Exam Const: COMMON NORMALS: no acute distress, patient oriented x3 and alert GENERAL APPEARANCE: cooperative and comfortable NUTRITIONAL APPEARANCE: obese morbidly obese HENMT: COMMON NORMALS: normocephalic HEAD & SCALP: normocephalic MOUTH: Normal oral and palatal mucosa present THROAT: posterior oropharynx normal and uvula midline Neck/C-Spine: COMMON NORMALS: supple GENERAL: Yes normal visual inspection Resp: COMMON NORMALS: normal respiratory effort, No retractions, No use of accessory muscles and clear to auscultation bilaterally AUSCULTATION: clear to auscultation bilaterally Cardio: COMMON NORMALS: regular rate, regular rhythm, S1 normal heart sound present, S2 normal heart sound present, No gallops present (Cardio), No clicks present (Cardio), No murmurs present (Cardio) and Peripheral pulses 2+ throughout RATE: regular rate RHYTHM: regular rhythm HEART SOUNDS: S1 normal heart sound present and S2 normal heart sound present PERIPHERAL PUL SES: Peripheral pulses 2+ throughout GI: COMMON NORMALS: Normal to inspection, nondistended, normoactive bowel sounds present, Soft to palpation, non-tender and no masses PALPATION: Yes Soft to palpation : COMMON NORMALS: Yes no CVA tenderness BLADDER/KIDNEY EXAM: Yes no CVA tenderness Back/Pelvis: COMMON NORMALS: no CVA tenderness LUMBAR SPINE/LOWER BACK: Yes pain with ROM, No lumbar spinal tenderness and Yes paraspinal muscle tenderness Lumbar paraspinal muscle tenderness: bilateral Bilateral lumbar paraspinal muscle tenderness: L3, L4 and L5 Extremity: NARRATIVE EXTREMITY EXAM: Left hand?third digit?distal lateral edge of nail and nailbed has small laceration. No active bleeding. GENERAL: Yes normal exam except as noted Neuro: COMMON NORMALS: patient oriented x3 and moves all extremities SENSORIUM/ORIENTATION: Yes alert Skin: GENERAL SKIN EXAM: dry skin Course ED course: The nurse irrigated the cut on third digit of left hand extensively with normal saline. Then finger was soaked in iodine wash to help disinfected. Nurse then applied triple antibiotic ointment on finger and Band-Aid was applied. Vital Signs: Vital signs: Vital Signs Temperature 98.3 F 06/26/21 21:34 Pulse Rate 82 06/27/21 01:27 Respiratory Rate 18 06/27/21 01:27 Blood Pressure 142/78 06/27/21 01:27 Pulse Oximetry 100 06/27/21 01:27 MDM - Fall MDM Narrative: Medical decision making narrative: Patient is a 40-year-old male who comes to the ED with an injury to lower back and third digit on left hand. Patient was throwing some trash away and fell backwards landing on his lower back. He now has pain in his lower back does not radiate anywhere and he denies any pain radiating down his legs. Denies cauda equina symptoms. Patient up-to-date on tetanus. Patient also has a small laceration to the very distal lateral edge of fingernail and nailbed. Patient also has some para lumbar spinal muscle tenderness bilaterally but no other acute exam findings. Vital stable. No active bleeding. The nurse irrigated the cut with normal saline and then cleaned it with an iodine wash. Triple antibiotic ointment and Band-Aid was applied. X-ray of lumbar spine and left hand showed no acute fractures or findings. Patient was diagnosed with lower back pain and a cut to finger. He was discharged home with a prophylactic prescription for cephalexin, Flexeril and ibuprofen 800 mg tablets. He was told to follow-up with his PCP in 7 to 10 days for reevaluation. Return to ED precautions given. Patient understood and agree with plan. Imaging Data^: Xray Ortho: Attestation: I personally reviewed and interpreted this imaging study as follows: Radiologist's impression: [facility] [address] [place] [address]. [place] [address] XRay Report Signed Patient: Tyree Buckley Unit #: [id number] : 1980 Age/Sex: 40 / M ADM Date: 06/26/21 Loc: ER Room/Bed: Attending Dr: Ordering Provider/Ordering MD: Homero Khanna Date of Service: 06/26/21 Procedure(s): XR lumbar spine 2-3V* [id number] Accession Number(s): [id number] Report Number: [id number] PROCEDURE INFORMATION: Exam: XR Lumbosacral Spine Exam date and time: 06/26/2021 11:00 PM Age: 40 years old Clinical indication: Other: Low back pain; Patient HX: Fell today lower back pain; Additional info: Fall injury with low back pain TECHNIQUE: Imaging protocol: XR of the lumbosacral spine. Views: 2 or 3 views. COMPARISON: CT lumbar spine wo con* [id number] 08/27/2019 8:35 PM FINDINGS: Bones/joints: Normal. No acute fracture. Normal alignment. Soft tissues: Unremarkable. XR/XR lumbar spine 2-3V* [id number] IMPRESSION: No acute findings. Dictated By: Shiv Kelsey Signed By: Shiv Kelsey Signed Date/Time: 06/27/21 0026 DD/ [address] [address] [place] [address] XRay Report Signed Patient: Tyree Buckley Unit #: [id number] : 1980 Age/Sex: 40 / M ADM Date: 06/26/21 Loc: ER Room/Bed: Attending Dr: Ordering Provider/Ordering MD: Homero Khanna Date of Service: 06/26/21 Procedure(s): XR hand LT min 3V* [id number] Accession Number(s): [id number] Report Number: [id number] PROCEDURE INFORMATION: Exam: XR Left Hand Exam date and time: 06/26/2021 11:02 PM Age: 40 years old Clinical indication: Injury or trauma; Fall; Blunt trauma (contusions or hematomas); Hand; Left; Injury date: [place]; Injury details: Fell today pain to 4th fnger; Additional info: Injury to distal end of 3rd digit-distal nail bed injury TECHNIQUE: Imaging protocol: XR Left hand. Views: 3 or more views. COMPARISON: CR XR hand LT min 3V* [id number] 05/24/2021 4:42 PM FINDINGS: Bones/joints: Normal. Soft tissues: Normal. XR/XR hand LT min 3V* [id number] IMPRESSION: No acute findings. Dictated By: Shiv Kelsey Signed By: Shiv Kelsey Signed Date/Time: 06/27/2125 DD/ 01 Discharge Plan Discharge Patient Disposition: Home Clinical Impression: Cut of finger Low back pain Qualifiers: Chronicity: acute Back pain laterality: bilateral Sciatica presence: without sciatica Qualified Code(s): M54.50 - Low back pain, unspecified Condition: Stable Prescriptions: New cephalexin 500 mg capsule 500 mg PO Q6H 3 Days Qty: 12 RF: 0 cyclobenzaprine 10 mg tablet 10 mg PO BID PRN (Reason: muscle spasm) Qty: 20 RF: 0 ibuprofen 800 mg tablet 800 mg PO Q8H PRN (Reason: pain) Qty: 30 RF: 0 No Action (DME) Custom Molded Orthotics See Rx Instructions .Route .MEDSUPPLY Qty: 1 RF: 0 Lantus Solostar U-100 Insulin 100 unit/mL (3 mL) insulin pen 78 unit SUBCUT BID Qty: 15 RF: 3 dexamethasone 1 mg tablet 1 mg PO ONCE Qty: 1 RF: 0 digoxin 125 mcg (0.125 mg) tablet 125 mcg PO QAM RF: 0 pantoprazole 20 mg tablet,delayed release (DR/EC) 20 mg PO DAILY RF: 0 simvastatin 20 mg tablet 20 mg PO DAILY RF: 0 isosorbide mononitrate 30 mg tablet extended release 24 hr 30 mg PO DAILY 30 Days Qty: 30 RF: 5 (DME) Diabetic shoes with 3 sets of insoles See Rx Instructions .Route .MEDSUPPLY Qty: 1 RF: 0 Victoza 2-Henri 0.6 mg/0.1 mL (18 mg/3 mL) pen injector 1.8 mg SUBCUT QAM Qty: 6 RF: 0 metformin 1,000 mg tablet 1,000 mg PO BID Qty: 180 RF: 0 insulin aspart U-100 [Novolog Flexpen U-100 Insulin] 100 unit/mL (3 mL) insulin pen 10 unit SUBCUT TID Qty: 15 RF: 0 hydrocortisone 1 % cream 1 applic topical BID Qty: 28.4 RF: 0 lisinopril 40 mg Tablet 40 mg PO QAM RF: 0 aspirin 81 mg Tablet,Delayed Release (Dr/Ec) 81 mg PO QAM RF: 0 amlodipine 10 mg tablet 10 mg PO DAILY RF: 0 Lamictal 100 mg tablet 100 mg PO QAM RF: 0 metoprolol tartrate 50 mg tablet 100 mg PO BID RF: 0 mupirocin 2 % ointment 1 applic topical BID Qty: 22 RF: 0 Discharge Orders: Discharge ED (Routine); Ordered 06/27/21 Ordered By: Homero Khanna Referrals: [facility] [Primary Care Provider] - Discharge Diet: Regular Discharge Activity: Increase activity as tolerated Patient Instructions: Acute Low Back Pain (ED) Activity Restrictions/Additional Instructions: Follow-up with medical provider as directed in 7 to 10 days reevaluation. Take medications as prescribed. Cyclobenzaprine is a muscle relaxer and can cause some drowsiness so take at night before going to bed. Stretch lower back out daily and apply cold pack or heat on lower back to help with symptoms as well. Clean cut on finger daily apply triple antibiotic ointment on it and bandaged to keep covered. Return to the ER or your medical provider if condition worsens. Please read and understand discharge instructions. Thank you for choosing [facility] for your healthcare needs today. Please realize this is an emergency room and that we are providing you with a medical screening exam and this may not be complete and all inclusive of all the testing and or work up that you may need to determine your ailment or severity of your illness. It is very important that you follow up as instructed or that you return to the Emergency Department should you have concerns or if your condition changes or worsens in any way. Coding Level of Care Code ED Sap [employer] Architect for Christin Chang Exam Comprehensive
--- NOTE | 2021-06-26 23:02 | XRR_ITS ---
PROCEDURE INFORMATION: Exam: XR Left Hand Exam date and time: 06/26/2021 11:02 PM Age: 40 years old Clinical indication: Injury or trauma; Fall; Blunt trauma (contusions or hematomas); Hand; Left; Injury date: ; Injury details: Fell today pain to 4th fnger; Additional info: Injury to distal end of 3rd digit-distal nail bed injury TECHNIQUE: Imaging protocol: XR Left hand. Views: 3 or more views. COMPARISON: CR XR hand LT min 3V* [id number] 05/24/2021 4:42 PM FINDINGS: Bones/joints: Normal. Soft tissues: Normal. XR/XR hand LT min 3V* [id number] IMPRESSION: No acute findings.
[2021-06-26] MEDS: neomycin-poly-bacitracin oint 0.9 gm Pkt 1 APPLIC TOPICAL (23:32)
[2021-06-26] MEDS: HYDROcodone-acetaminophen 7.5-325 mg Tablet 1 TAB PO (23:32)
[2021-06-26] MEDS: orphenadrine 30 mg/mL Inj 2 mL 60 MG IM (23:33)
[2021-06-27 01:27] VITALS: BP 142/78; PULSE 82; RESP 18; O2SAT 100
== END 2021-06-27 01:29 | disposition home or self-care (01) ==
PROVIDERS: Emergency Provider Physician Assistant
DX: M54.50 Low back pain, unspecified (principal); S61.213A Laceration without foreign body of left middle finger without damage to nail, initial encounter; Z79.84 Long term (current) use of oral hypoglycemic drugs; Z79.82 Long term (current) use of aspirin; Z79.4 Long term (current) use of insulin; I25.10 Atherosclerotic heart disease of native coronary artery without angina pectoris
CPT/HCPCS: 72100; 73130; 96372; 99283; J2360

== ENCOUNTER → 2021-06-27 10:02 | Outpatient (BNVA) | payer OTHER, MEDICAID, SELFPAY ==
[2021-06-12 09:39] VITALS: BP 132/80; BMI 61.5
== END ==
PROVIDERS: Visit Provider Counselor Mental Health
DX: F31.73 Bipolar disorder, in partial remission, most recent episode manic (principal); F50.81 Binge eating disorder; F32.9 Major depressive disorder, single episode, unspecified; F43.10 Post-traumatic stress disorder, unspecified
CPT/HCPCS: 90832

== ENCOUNTER → 2021-07-13 08:48 | Outpatient (BNVA) | payer OTHER, MEDICAID, SELFPAY ==
[2021-06-12 09:39] VITALS: BP 132/80; BMI 61.5
== END ==
PROVIDERS: PCP Family Medicine; Visit Provider Counselor Mental Health
DX: F31.73 Bipolar disorder, in partial remission, most recent episode manic (principal); F50.81 Binge eating disorder; F32.9 Major depressive disorder, single episode, unspecified; F43.10 Post-traumatic stress disorder, unspecified
CPT/HCPCS: 90832

== ENCOUNTER → 2021-08-07 10:00 | Outpatient (BNVA) | payer MEDICAID, SELFPAY ==
[2021-06-12 09:39] VITALS: BP 132/80; BMI 61.5
== END ==
PROVIDERS: PCP Family Medicine; Visit Provider Counselor Mental Health
DX: F31.73 Bipolar disorder, in partial remission, most recent episode manic (principal); F50.81 Binge eating disorder; F32.9 Major depressive disorder, single episode, unspecified; F43.10 Post-traumatic stress disorder, unspecified
CPT/HCPCS: 90832

== ENCOUNTER 2021-08-12 15:44 | Outpatient (CLI) | payer OTHER, MEDICAID, SELFPAY ==
[2021-06-12 09:39] VITALS: BP 132/80; BMI 61.5
--- NOTE | 2021-08-12 16:00 | XRR_ITS ---
PROCEDURE INFORMATION: Exam: XR Right Tibia and Fibula Exam date and time: 08/12/2021 4:00 PM Age: 40 years old Clinical indication: Injury or trauma; Fall; Blunt trauma; Lower leg; Right; Additional info: Pain after fall TECHNIQUE: Imaging protocol: XR Right tibia and fibula. Views: 2 views. COMPARISON: No relevant prior studies available. FINDINGS: Bones/joints: No fracture or dislocation is seen. Soft tissues: Mild soft tissue swelling is seen in the lateral leg. XR/XR tibia fibula RT 2V [id number] IMPRESSION: No fracture or dislocation.
--- NOTE | 2021-08-12 16:00 | XRR_ITS ---
PROCEDURE INFORMATION: Exam: XR Lumbosacral Spine Exam date and time: 08/12/2021 4:00 PM Age: 40 years old Clinical indication: Injury or trauma; Fall; Blunt trauma (contusions or hematomas); Additional info: Pain after fall TECHNIQUE: Imaging protocol: XR of the lumbosacral spine. Views: 2 or 3 views. COMPARISON: CT abdomen pelvis w con* [id number] 05/28/2021 9:04 AM FINDINGS: Bones/joints: Normal. No acute fracture. Mild retrolisthesis of L4 over L5 is again noted. Soft tissues: Unremarkable. XR/XR lumbar spine 2-3V* [id number] IMPRESSION: No lumbar spine fracture.
== END 2021-08-12 15:45 | disposition home or self-care (01) ==
PROVIDERS: PCP Family Medicine; Visit Provider Nurse Practitioner
DX: M79.604 Pain in right leg (principal); M54.50 Low back pain, unspecified; W19.XXXA Unspecified fall, initial encounter
CPT/HCPCS: 72100; 73590

== ENCOUNTER 2021-08-15 15:02 | Emergency (ER) | payer OTHER, MEDICAID, SELFPAY ==
[2021-06-12 09:39] VITALS: BP 132/80; BMI 61.5
[2021-08-15 15:19] VITALS: BP 205/108; PULSE 78; RESP 18; TEMP 36.9; O2SAT 96; BMI 58.1
--- NOTE | 2021-08-15 15:25 | ED_ITS ---
HPI - Fall General: Chief Complaint: Fall Stated Complaint: Left Hip/Leg burning Time Seen by Provider: 08/15/21 15:24 Source: patient Mode of arrival: ambulatory Limitations: no limitations History of Present Illness: Patient is a 40-year-old male who presents to ED today with a complaint of left lateral thigh burning and tingling following a fall approximately 3 days ago. Patient states he fell while rollerskating. He was subsequently seen at the walk-in clinic and at that point was complaining of some lower back pain and right lower leg pain. He had XRs of these areas performed which were negative. Discharged with Zanaflex and Ketorolac (he didn't fill this because insurance wouldn't cover). He states since that visit he then began developing some tingling to the lateral aspect of his left leg and complains of some minor hip and knee pain. Patient is full weight bearing ambulatory without a limp. He has no other injuries or complaints at this time. MD complaint: fall Onset (ago): day(s) Fall from: standing Fall witnessed: yes, by family and yes, by bystander Loss of consciousness: None Prolonged down time: no Symptoms prior to fall: none Context: tripped/slipped Quality: burning Associated symptoms-after fall: Denies abdominal pain, chest pain, difficulty walking, headache(s), hematuria or neck pain Review of Systems Card: Denies: chest pain Resp: Denies: dyspnea GI: Denies: abdominal pain : Denies: flank pain, dysuria or hematuria Musc: Reports: back pain, extremity pain and joint pain; Denies: neck pain, extremity swelling, joint swelling, joint redness, joint warmth or limited range of motion Neuro: Reports: sensory changes; Denies: headache(s), weakness in extremities, difficulty walking or dizziness [facility] ED PFSH: Medical History Alcohol dependence, in remission Benign essential HTN Binge eating disorder Bipolar disorder, in partial remission, most recent episode manic DJD (degenerative joint disease) Dyspnea on exertion Gallstones GERD (gastroesophageal reflux disease) GI disease Hx MRSA infection Morbid obesity Morbid obesity Nephrolithiasis Nephropathy Obstructive sleep apnea Posttraumatic stress disorder Supraventricular tachycardia Tinea cruris Surgical History H/O oral surgery History of ankle surgery S/P adenoidectomy S/P cholecystectomy S/P hernia repair S/P knee surgery S/P myringotomy with insertion of tube S/P tendon repair S/P vasectomy Family History Other Adopted Social History Smoking and tobacco status: former smoker Smoking risk assessment/counseling performed?: Yes Tobacco counseling given: counseling >3 minutes Alcohol intake: former Year of sobriety/quit date alcohol: 11mo Adopted: Yes Caregiver/support person: No Lives independently: Yes Household members: spouse Housing: Apartment Marital status: Number of children: 2 Highest education level completed: Some College, No Degree service: Yes status: Medically Discharged/Retired branch: [employer] Current occupational status: disabled Pets and animals: Yes Pets & animals: dog(s) History of recent travel: No Leisure activites: games Sexually active: Yes Current gender identity: Male Leda/Pentecostalism: None Special leda needs: No Agree to transfusion: Yes Financial difficulty paying for basics: Not Very Hard Physical Exam Const: COMMON NORMALS: no acute distress, patient oriented x3, no limitations and alert GENERAL APPEARANCE: cooperative NUTRITIONAL APPEARANCE: obese morbidly obese ORIENTATION/CONSCIOUSNESS: Yes awake, Yes oriented to person, Yes oriented to place and Yes oriented to time HENMT: COMMON NORMALS: normocephalic and atraumatic HEAD & SCALP: normocephalic and atraumatic Back/Pelvis: LUMBAR SPINE/LOWER BACK: Yes normal to inspection, Yes lumbar ROM normal and Yes paraspinal muscle tenderness Lumbar paraspinal muscle tenderness: left PELVIS: Yes buttocks normal SACROILIAC JOINTS: Yes SI joints normal Extremity: GENERAL: Yes normal exam except as noted OTHER: pt has very minor tenderness throughout L knee/hip with full ROM to these areas; again he is full weight bearing with no limp; I don't see an indication for XR imaging based on his exam Neuro: TAMARA COMA SCALE: document GCS findings Tamara coma scale eye opening: Spontaneous Plessis coma scale verbal response: Orientated Plessis coma scale motor response: Obey commands Plessis coma scale total score: 15 COMMON NORMALS: patient oriented x3, moves all extremities, no focal motor deficits, no sensory deficits noted and gait normal SENSORIUM/ORIENTATION: Yes alert, Yes oriented to person, Yes oriented to place and Yes oriented to time GAIT: Yes Normal gait present MOTOR EXAM: 5/5 motor strength present throughout Skin: COMMON NORMALS: no rashes or lesions noted GENERAL SKIN EXAM: no rashes or lesions noted TRAUMA: no lacerations or abrasions Course Vital Signs: Vital signs: Vital Signs Temperature 98.4 F 08/15/21 15:19 Pulse Rate 96 08/15/21 15:28 Respiratory Rate 18 08/15/21 15:28 Blood Pressure 205/108 08/15/21 15:28 Pulse Oximetry 96 08/15/21 15:28 MDM - Fall Medical Decision Making Patient had normal lumbar XRs performed just a few days ago following the fall. He has no acute neurological emergency. Most likely patient having some mild lumbar radiculopathy from recent fall/strain. Recommend continuing to take muscl e relaxer prescribed at urgent care and will add NSAIDS here. Follow up with PCP in 1-2 weeks if symptoms persist. Discharge Plan Discharge Patient Disposition: Home Clinical Impression: Lumbar back sprain Qualifiers: Encounter type: initial encounter Qualified Code(s): S33.5XXA - Sprain of ligaments of lumbar spine, initial encounter Condition: Stable Prescriptions: New ibuprofen 800 mg tablet 800 mg PO Q8H PRN (Reason: pain) Qty: 20 0RF Discontinued ketorolac 10 mg tablet 10 mg PO TID PRN (Reason: pain) 5 Days Qty: 15 0RF No Action (DME) Custom Molded Orthotics See Rx Instructions .Route .MEDSUPPLY Qty: 1 0RF Rx Instructions: As directed [facility] Lantus Solostar U-100 Insulin 100 unit/mL (3 mL) insulin pen 78 unit SUBCUT BID Qty: 15 3RF Rx Instructions: Inject 78 units twice a day. tizanidine 4 mg capsule 4 mg PO BID PRN (Reason: muscle spasticity) 7 Days Qty: 7 0RF digoxin 125 mcg (0.125 mg) tablet 125 mcg PO QAM 0RF pantoprazole 20 mg tablet,delayed release (DR/EC) 20 mg PO DAILY 0RF simvastatin 20 mg tablet 20 mg PO DAILY 0RF isosorbide mononitrate 30 mg tablet extended release 24 hr 30 mg PO DAILY 30 Days Qty: 30 5RF (DME) Diabetic shoes with 3 sets of insoles See Rx Instructions .Route .MEDSUPPLY Qty: 1 0RF Rx Instructions: As directed by [employer] Betty 2-Henri 0.6 mg/0.1 mL (18 mg/3 mL) pen injector 1.8 mg SUBCUT QAM Qty: 6 0RF Rx Instructions: see pharmacy comment metformin 1,000 mg tablet 1,000 mg PO BID Qty: 180 0RF Rx Instructions: Take one tablet by mouth twice a day. insulin aspart U-100 [Novolog Flexpen U-100 Insulin] 100 unit/mL (3 mL) insulin pen 10 unit SUBCUT TID Qty: 15 0RF Rx Instructions: Administer 10 units subcut three times a day before meals. hydrocortisone 1 % cream 1 applic topical BID Qty: 28.4 0RF lisinopril 40 mg Tablet 40 mg PO QAM 0RF aspirin 81 mg Tablet,Delayed Release (Dr/Ec) 81 mg PO QAM 0RF amlodipine 10 mg tablet 10 mg PO DAILY 0RF metoprolol tartrate 50 mg tablet 100 mg PO BID 0RF Rx Instructions: see pharmacy comment Discharge Orders: Discharge ED (Routine); Ordered 08/15/21 Ordered By: Stephanie Brewer Referrals: Manda Raza MD [Primary Care Provider] - Coding Level of Care Code ED Network Support Manager for Christin Chang
[2021-08-15 15:28] VITALS: BP 205/108; PULSE 96; RESP 18; O2SAT 96
[2021-08-15] MEDS: orphenadrine 30 mg/mL Inj 2 mL 60 MG IM (15:42)
[2021-08-15] MEDS: dexamethasone 10 mg/mL INJ 8 MG IM (15:42)
== END 2021-08-15 16:15 | disposition home or self-care (01) ==
PROVIDERS: Emergency Provider Physician Assistant; PCP Family Medicine
DX: S33.5XXA Sprain of ligaments of lumbar spine, initial encounter (principal); Z79.84 Long term (current) use of oral hypoglycemic drugs; Z79.82 Long term (current) use of aspirin; Z79.4 Long term (current) use of insulin; I10 Essential (primary) hypertension; Z87.891 Personal history of nicotine dependence; W19.XXXA Unspecified fall, initial encounter; Y92.331 Roller skating rink as the place of occurrence of the external cause
CPT/HCPCS: 96372; 99283; J1100; J2360

== ENCOUNTER 2021-08-15 20:48 | Emergency (ER) | payer OTHER, MEDICAID, SELFPAY ==
[2021-06-12 09:39] VITALS: BP 132/80; BMI 61.5
[2021-08-15 20:56] VITALS: BP 190/100; PULSE 99; RESP 16; TEMP 36.6; O2SAT 99; BMI 58.1
--- NOTE | 2021-08-15 21:15 | ED_ITS ---
HPI - General Adult General: Chief complaint: General Medical Stated complaint: Injury Fell-Left Leg Knot\Hurts to walk\Here earli Time Seen by Provider: 08/15/21 21:06 History of Present Illness: Patient is a 40-year-old male comes to the ED with a swollen tender nodule on left lateral thigh. Patient says he noticed it at home today. Denies any injury to the left leg to cause tender nodule. He was seen here in the ED earlier today August 15 for lower back pain. Denies any ches t pain, shortness of breath or hemoptysis. He takes a daily baby aspirin but is not on any blood thinners. Associated symptoms: Deny chest pain, dyspnea, headache(s), nausea, rash, palpitations or vomiting Review of Systems Const: Denies: fever(s), chills or fatigue Eyes: Denies: change in vision or eye discomfort ENMT: Denies: throat pain, odynophagia, nasal discharge or nasal congestion Card: Denies: chest pain, palpitations, edema, swelling of feet/ankles, dyspnea on exertion or orthopnea Resp: Denies: dyspnea, productive cough or non-productive cough GI: Denies: abdominal pain, nausea, vomiting, diarrhea, constipation or hematochezia : Denies: flank pain, difficulty urinating, dysuria or hematuria Musc: Reports: extremity pain (Tender nodule on left thigh); Denies: neck pain, back pain or extremity swelling Skin/Breast: Denies: rash or new lesions Neuro: Denies: headache(s), numbness in extremities or weakness in extremities [facility] ED PFSH: Medical History Alcohol dependence, in remission Benign essential HTN Binge eating disorder Bipolar disorder, in partial remission, most recent episode manic DJD (degenerative joint disease) Dyspnea on exertion Gallstones GERD (gastroesophageal reflux disease) GI disease Hx MRSA infection Morbid obesity Morbid obesity Nephrolithiasis Nephropathy Obstructive sleep apnea Posttraumatic stress disorder Supraventricular tachycardia Tinea cruris Surgical History H/O oral surgery History of ankle surgery S/P adenoidectomy S/P cholecystectomy S/P hernia repair S/P knee surgery S/P myringotomy with insertion of tube S/P tendon repair S/P vasectomy Family History Other Adopted Social History Smoking and tobacco status: former smoker Smoking risk assessment/counseling performed?: Yes Tobacco counseling given: counseling >3 minutes Alcohol intake: former Year of sobriety/quit date alcohol: 11mo Adopted: Yes Caregiver/support person: No Lives independently: Yes Household members: spouse Housing: Apartment Marital status: Number of children: 2 Highest education level completed: Some College, No Degree service: Yes status: Medically Discharged/Retired branch: [employer] Current occupational status: disabled Pets and animals: Yes Pets & animals: dog(s) History of recent travel: No Leisure activites: games Sexually active: Yes Current gender identity: Male Leda/Lutheran: None Special leda needs: No Agree to transfusion: Yes Financial difficulty paying for basics: Not Very Hard Physical Exam Const: COMMON NORMALS: no acute distress, patient oriented x3 and alert GENERAL APPEARANCE: cooperative and comfortable NUTRITIONAL APPEARANCE: obese morbidly obese HENMT: COMMON NORMALS: normocephalic HEAD & SCALP: normocephalic MOUTH: Normal oral and palatal mucosa present THROAT: posterior oropharynx normal and uvula midline Neck/C-Spine: COMMON NORMALS: supple GENERAL: Yes normal visual inspection Resp: COMMON NORMALS: normal respiratory effort, No retractions, No use of accessory muscles and clear to auscultation bilaterally AUSCULTATION: clear to auscultation bilaterally Cardio: COMMON NORMALS: regular rate, regular rhythm, S1 normal heart sound present, S2 normal heart sound present, No gallops present (Cardio), No clicks present (Cardio), No murmurs present (Cardio) and Peripheral pulses 2+ throughout RATE: regular rate RHYTHM: regular rhythm HEART SOUNDS: S1 normal heart sound present and S2 normal heart sound present PERIPHERAL PULSES: Peripheral pulses 2+ throughout GI: COMMON NORMALS: Normal to inspection, nondistended, normoactive bowel sounds present, Soft to palpation, non-tender and no masses PALPATION: Yes Soft to palpation : COMMON NORMALS: Yes no CVA tenderness BLADDER/KIDNEY EXAM: Yes no CVA tenderness Back/Pelvis: COMMON NORMALS: no CVA tenderness Extremity: NARRATIVE EXTREMITY EXAM: Patient has some palpable tenderness over left lateral thigh, but no palpable nodule. findings likely suggestive of a sore muscle. Neuro: COMMON NORMALS: patient oriented x3 and moves all extremities SENSORIUM/ORIENTATION: Yes alert Skin: GENERAL SKIN EXAM: dry skin Course Vital Signs: Vital signs: Vital Signs Temperature 98 F 08/15/21 20:56 Pulse Rate 89 08/15/21 22:23 Respiratory Rate 20 H 08/15/21 22:23 Blood Pressure 125/95 08/15/21 22:23 Pulse Oximetry 98 08/15/21 22:23 MDM - General Adult Medical Decision Making Patient is a 40-year-old male that comes to the ED with a tender nodule on lateral aspect of left thigh. Patient did have a fall a couple days ago but states he did not think he hit his left side of his body and only injured his right foot and back. Today he noticed a tender nodule today. Denies any chest pain, shortness of breath or hemoptysis. Vitals are stable. Patient is morbidly obese and appears in no acute distress or pain. Tenderness to palpation of left lateral thigh but no palpable nodule or mass noted. Rest of exam is benign. Ultrasound venous duplex of left leg showed no DVTs. Left thigh pain is likely sore muscle. Patient diagnosed with musculoskeletal thigh pain and discharged home. Is told to follow-up with his PCP in 7 to 10 days for reevaluation. Return to ED precautions given. Patient understood agree with plan. Lab Data Radiology Impressions Venous Duplex 08/15/21 21:21 IMPRESSION: No evidence of deep vein thrombosis. Discharge Plan Discharge Patient Disposition: Home Clinical Impression: Musculoskeletal pain of left thigh Condition: Stable Prescriptions: No Action (DME) Custom Molded Orthotics See Rx Instructions .Route .MEDSUPPLY Qty: 1 0RF Rx Instructions: As directed J P & O Lantus Solostar U-100 Insulin 100 unit/mL (3 mL) insulin pen 78 unit SUBCUT BID Qty: 15 3RF Rx Instructions: Inject 78 units twice a day. tizanidine 4 mg capsule 4 mg PO BID PRN (Reason: muscle spasticity) 7 Days Qty: 7 0RF digoxin 125 mcg (0.125 mg) tablet 125 mcg PO QAM 0RF pantoprazole 20 mg tablet,delayed release (DR/EC) 20 mg PO DAILY 0RF simvastatin 20 mg tablet 20 mg PO DAILY 0RF isosorbide mononitrate 30 mg tablet extended release 24 hr 30 mg PO DAILY 30 Days Qty: 30 5RF (DME) Diabetic shoes with 3 sets of insoles See Rx Instructions .Route .MEDSUPPLY Qty: 1 0RF Rx Instructions: As directed by [facility] Betty 2-Henri 0.6 mg/0.1 mL (18 mg/3 mL) pen injector 1.8 mg SUBCUT QAM Qty: 6 0RF Rx Instructions: see pharmacy comment metformin 1,000 mg tablet 1,000 mg PO BID Qty: 180 0RF Rx Instructions: Take one tablet by mouth twice a day. insulin aspart U-100 [Novolog Flexpen U-100 Insulin] 100 unit/mL (3 mL) insulin pen 10 unit SUBCUT TID Qty: 15 0RF Rx Instructions: Administer 10 units subcut three times a day before meals. hydrocortisone 1 % cream 1 applic topical BID Qty: 28.4 0RF ibuprofen 800 mg tablet 800 mg PO Q8H PRN (Reason: pain) Qty: 20 0RF lisinopril 40 mg Tablet 40 mg PO QAM 0RF aspirin 81 mg Tablet,Delayed Release (Dr/Ec) 81 mg PO QAM 0RF amlodipine 10 mg tablet 10 mg PO DAILY 0RF metoprolol tartrate 50 mg tablet 100 mg PO BID 0RF Rx Instructions: see pharmacy comment Discharge Orders: Discharge ED (Routine); Ordered 08/15/21 Ordered By: Homero Khanna Referrals: Manda Raza MD [Primary Care Provider] - Discharge Diet: Regular Discharge Activity: Increase activity as tolerated Activity Restrictions/Additional Instructions: Follow-up with medical provider as directed in 7 to 10 days for evaluation. Continue taking all home medications as previously prescribed. Return to the ER or your medical provider if condition worsens. Please read and understand discharge instructions. Thank you for choosing [facility] for your healthcare needs today. Please realize this is an emergency room and that we are providing you with a medical screening exam and this may not be complete and all inclusive of all the testing and or work up that you may need to determine your ailment or severity of your illness. It is very important that you follow up as instructed or that you return to the Emergency Department should you have concerns or if your condition changes or worsens in any way. Coding Level of Care Code ED Lamps Tester And Inspector for Christin Fwd Exam Comprehensive
--- NOTE | 2021-08-15 21:21 | USR_ITS ---
PROCEDURE INFORMATION: Exam: US Duplex Left Lower Extremity Veins, Limited Exam date and time: 08/15/2021 9:21 PM Age: 40 years old Clinical indication: Pain; Leg, upper; Left; Additional info: Tender, swollen nodule on thigh TECHNIQUE: Imaging protocol: Real-time Duplex ultrasound of the Left Lower Extremity with 2-D jose scale, color Doppler flow and spectral waveform analysis with image documentation. Limited exam focused on the left lower extremity veins. COMPARISON: CT abdomen pelvis w con* [id number] 05/28/2021 9:04 AM FINDINGS: Left deep veins: Unremarkable. The common femoral, femoral, proximal profunda femoral and popliteal veins are patent without thrombus. Normal Doppler waveforms. Normal compressibility and/or augmentation response. Left superficial veins: Unremarkable. Saphenofemoral junction is patent without thrombus. Soft tissues: Unremarkable. US/CV venous duplex [facility] [id number] IMPRESSION: No evidence of deep vein thrombosis.
[2021-08-15 22:23] VITALS: BP 125/95; PULSE 89; RESP 20; O2SAT 98
== END 2021-08-15 22:24 | disposition home or self-care (01) ==
PROVIDERS: Emergency Provider Physician Assistant; PCP Family Medicine
DX: M79.652 Pain in left thigh (principal); Z79.84 Long term (current) use of oral hypoglycemic drugs; Z79.4 Long term (current) use of insulin; Z79.82 Long term (current) use of aspirin; I10 Essential (primary) hypertension; Z87.891 Personal history of nicotine dependence
CPT/HCPCS: 93971; 99282

== ENCOUNTER → 2021-08-21 08:32 | Outpatient (BNVA) | payer OTHER, MEDICAID, SELFPAY ==
[2021-06-12 09:39] VITALS: BP 132/80; BMI 61.5
== END ==
PROVIDERS: PCP Family Medicine; Visit Provider Counselor Mental Health
DX: F31.73 Bipolar disorder, in partial remission, most recent episode manic (principal); F50.81 Binge eating disorder; F32.9 Major depressive disorder, single episode, unspecified; F43.10 Post-traumatic stress disorder, unspecified
CPT/HCPCS: 90832

== ENCOUNTER 2021-08-27 00:42 | Emergency (ER) | payer OTHER, MEDICAID, SELFPAY ==
[2021-06-12 09:39] VITALS: BP 132/80; BMI 61.5
--- NOTE | 2021-08-27 00:48 | W.ED.LOWEXIN ---
Documented by User: SCOTTY Cuello 08/27/21 02:14 HPI - Extremity Injury (Lower) General: Chief Complaint: Extremity Problem,Nontraumatic Stated Complaint: POSSIBLE LEG INFECTION Time Seen by Provider: 08/27/21 00:45 History of Present Illness: 40-year-old male patient comes in today with some redness to the anterior right lower leg. Patient reports falling 1 week ago and bruising his leg while skating. Over the last 2 to 3 days patient has noticed increasing pain and discomfort to the right lower extremity. Patient denies any calf pain or any significant swelling. Patient does have a history of diabetes, peripheral neuropathy, obstructive sleep apnea, morbid obesity, SVT, and alcoholism. MD complaint: leg injury Onset (ago): day(s) Type of Injury: blunt Review of Systems General: Reports: 10 or more systems reviewed and unremarkable except in HPI and below Const: Denies: fever(s) Card: Denies: chest pain Resp: Denies: dyspnea Musc: Reports: extremity pain (Right lower leg) PFSH ED PFSH: Medical History Alcohol dependence, in remission Benign essential HTN Binge eating disorder Bipolar disorder, in partial remission, most recent episode manic DJD (degenerative joint disease) Dyspnea on exertion Gallstones GERD (gastroesophageal reflux disease) GI disease Hx MRSA infection Morbid obesity Morbid obesity Nephrolithiasis Nephropathy Obstructive sleep apnea Posttraumatic stress disorder Supraventricular tachycardia Tinea cruris Surgical History H/O oral surgery History of ankle surgery S/P adenoidectomy S/P cholecystectomy S/P hernia repair S/P knee surgery S/P myringotomy with insertion of tube S/P tendon repair S/P vasectomy Family History Other Adopted Social History Smoking and tobacco status: former smoker Smoking risk assessment/counseling performed?: Yes Tobacco counseling given: counseling >3 minutes Alcohol intake: former Year of sobriety/quit date alcohol: 11mo Adopted: Yes Caregiver/support person: No Lives independently: Yes Household members: spouse Housing: Apartment Marital status: Number of children: 2 Highest education level completed: Some College, No Degree service: Yes status: Medically Discharged/Retired branch: [employer] Current occupational status: disabled Pets and animals: Yes Pets & animals: dog(s) History of recent travel: No Leisure activites: games Sexually active: Yes Current gender identity: Male Leda/Adventism: None Special leda needs: No Agree to transfusion: Yes Financial difficulty paying for basics: Not Very Hard Physical Exam Const: COMMON NORMALS: alert HENMT: COMMON NORMALS: atraumatic HEAD & SCALP: atraumatic Neck/C-Spine: COMMON NORMALS: full ROM Resp: COMMON NORMALS: normal respiratory effort and clear to auscultation bilaterally AUSCULTATION: clear to auscultation bilaterally Cardio: COMMON NORMALS: regular rate and regular rhythm RATE: regular rate RHYTHM: regular rhythm GI: COMMON NORMALS: non-tender Extremity: NARRATIVE EXTREMITY EXAM: Negative Homans' sign to the right lower leg, no swelling to the foot, prompt capillary refill and normal pulses. RIGHT LOWER EXTREMITY: Yes lower leg (Contusion right lateral leg, localized erythema to the anterior) Right lower leg: Yes inspection, Yes palpation and Yes neurovascular exam Neuro: SENSORIUM/ORIENTATION: Yes alert Skin: RASHES: rashes noted (Right lower leg erythema with warmth) Course Vital Signs: Vital signs: Vital Signs Temperature 98.5 F 08/27/21 01:05 Pulse Rate 90 08/27/21 01:05 Respiratory Rate 18 08/27/21 01:05 Blood Pressure 145/75 08/27/21 01:05 Pulse Oximetry 98 08/27/21 01:05 MDM - Extremity Injury (Lower) Medical Decision Making 40-year-old male patient comes in today with redness and bruising from an injury over the last week. On exam patient has area of erythema and warmth to the right lower extremity and anterior aspect. Patient also has a noticeable contusion to the right lower leg proximally to the extremity. Distal pulses are intact. No significant swelling is noted. Cap refill is intact. Differential diagnosis includes DVT, cellulitis, contusion. Negative Homans' sign and no other sign of DVT is noted. Patient has tenderness to the anterior aspect, patient has mild cellulitis. Patient was given 1 g of ceftriaxone. We will continue with cephalexin 500 mg every 6 hours for 7 days. Patient reported understanding of care plan and need for follow-up or return to the ER. Lab Data : 08/27/21 01:08/27/21 01: Laboratory Results WBC 8.5 10^3/uL (4.0-10.0) 08/27/21: RBC 5.55 10^6/uL (4.1-5.3) H 08/27/21 01: Hgb 14.8 g/dL (11.7-16.6) 08/27/21 01: Hct 44.1 % (42.0-52.0) 08/27/21 01: MCV 79.5 fl (80-94) L 08/27/21 01: MCH 26.7 pg (28.0-34.0) L 08/27/21: MCHC 33.6 g/dL (30.0-36.0) 08/27/21: RDW 12.6 % (12.1-15.1) 08/27/21: Plt Count 310 10^3/cmm (130-400) 08/27/21 01: MPV 10.0 fL (7.4-10.4) 08/27/21 01: Neut % (Auto) 53.6 % 08/27/21 01: Lymph % (Auto) 32.2 % 08/27/21 01: [place] % (Auto) 9.5 % 08/27/21 01: Eos % (Auto) 3.1 % 08/27/21 01: Baso % (Auto) 1.1 % 08/27/21: Neut # (Auto) 4.57 10^3/uL (1.8-7.7) 08/27/21 01: Lymph # (Auto) 2.7 10^3/uL (0.8-4.8) 08/27/21 01: [place] # (Auto) 0.8 10^3/uL (0.2-0.9) 08/27/21 01: Eos # (Auto) 0.3 10^3/uL (0.0-0.8) 08/27/21 01: Baso # (Auto) 0.1 10^3/uL (0.0-0.1) 08/27/21 01:29 Nucleated RBC % (auto) 0 % 08/27/21 01: Nucleated RBCs # 0.0 /100WBC 08/27/21 01:29 Sodium 134 mmol/L (136-145) L 08/27/21 01:29 Potassium 3.4 mmol/L (3.5-5.1) L 08/27/21 01:29 Chloride 97 mmol/L (98-107) L 08/27/21 01:29 Carbon Dioxide 25 mmol/L (22-29) 08/27/21 01:29 Anion Gap 15.4 (5-19) 08/27/21 01:29 BUN 7 mg/dL (6-20) 08/27/21 01:29 Creatinine 0.6 mg/dL (0.7-1.2) L 08/27/21 01:29 GFR Calculation 148.5 mL/min (90-130) H 08/27/21 01:29 Glucose 335 mg/dL (65-115) H 08/27/21 01:29 Calculated Osmolality 289 mOsm/kg (285-295) 08/27/21 01:29 Calcium 9.3 mg/dL (8.5-10.5) 08/27/21 01:29 Total Bilirubin 0.6 mg/dL (0.15-1.2) 08/27/21 01:29 AST 23 U/L (0-40) 08/27/21 01:29 ALT 38 U/L (0-41) 08/27/21 01:29 Alkaline Phosphatase 104 IU/L (40-130) 08/27/21 01:29 C-Reactive Protein 21.5 mg/L (0.0-4.9) H 08/27/21 01:29 Total Protein 6.8 g/dL (6.6-8.7) 08/27/21 01:29 Albumin 4.0 g/dL (3.5-5.2) 08/27/21 01:29 Globulin 2.8 g/dL (1.3-4.6) 08/27/21 01:29 Discharge Plan Discharge Patient Disposition: Home Clinical Impression: Cellulitis Qualifiers: Site of cellulitis: extremity Site of cellulitis of extremity: lower extremity Laterality: right Qualified Code(s): L03.115 - Cellulitis of right lower limb Condition: Stable Prescriptions: New cephalexin 500 mg capsule 500 mg PO Q6H 7 Days Qty: 28 0RF No Action (DME) Custom Molded Orthotics See Rx Instructions .Route .MEDSUPPLY Qty: 1 0RF Rx Instructions: As directed [employer] [place] Solostar U-100 Insulin 100 unit/mL (3 mL) insulin pen 78 unit SUBCUT BID Qty: 15 3RF Rx Instructions: Inject 78 units twice a day. tizanidine 4 mg capsule 4 mg PO BID PRN (Reason: muscle spasticity) 7 Days Qty: 7 0RF digoxin 125 mcg (0.125 mg) tablet 125 mcg PO QAM 0RF pantoprazole 20 mg tablet,delayed release (DR/EC) 20 mg PO DAILY 0RF simvastatin 20 mg tablet 20 mg PO DAILY 0RF isosorbide mononitrate 30 mg tablet extended release 24 hr 30 mg PO DAILY 30 Days Qty: 30 5RF (DME) Diabetic shoes with 3 sets of insoles See Rx Instructions .Route .MEDSUPPLY Qty: 1 0RF Rx Instructions: As directed by [employer]LL[employer]O Victoza 2-Henri 0.6 mg/0.1 mL (18 mg/3 mL) pen injector 1.8 mg SUBCUT QAM Qty: 6 0RF Rx Instructions: see pharmacy comment metformin 1,000 mg tablet 1,000 mg PO BID Qty: 180 0RF Rx Instructions: Take one tablet by mouth twice a day. insulin aspart U-100 [Novolog Flexpen U-100 Insulin] 100 unit/mL (3 mL) insulin pen 10 unit SUBCUT TID Qty: 15 0RF Rx Instructions: Administer 10 units subcut three times a day before meals. hydrocortisone 1 % cream 1 applic topical BID Qty: 28.4 0RF ibuprofen 800 mg tablet 800 mg PO Q8H PRN (Reason: pain) Qty: 20 0RF lisinopril 40 mg Tablet 40 mg PO QAM 0RF aspirin 81 mg Tablet,Delayed Release (Dr/Ec) 81 mg PO QAM 0RF amlodipine 10 mg tablet 10 mg PO DAILY 0RF metoprolol tartrate 50 mg tablet 100 mg PO BID 0RF Rx Instructions: see pharmacy comment Discharge Orders: Discharge ED (Routine); Ordered 08/27/21 Ordered By: Wyatt Barker Referrals: Manda Raza MD [Primary Care Provider] - Discharge Diet: Usual diet Discharge Activity: Increase activity as tolerated Patient Instructions: Cellulitis (ED) Activity Restrictions/Additional Instructions: Home and rest. Elevate leg. Take antibiotics as directed. Drink plenty of water with medications. Monitor blood sugar. Follow-up with primary care in 3 days. Return to ER for high fever greater than 100.3, increasing redness and swelling, or new concerns. Coding Level of Care Code ED Roll Form Operator for Chg Fwd Exam Comprehensive Documented by User: Gallito Branch DO 08/27/21 03:04 HPI - Extremity Injury (Lower) General: Chief Complaint: Extremity Problem,Nontraumatic Stated Complaint: POSSIBLE LEG INFECTION Time Seen by Provider: 08/27/21 00:45 PFSH ED PFSH: Medical History Alcohol dependence, in remission Benign essential HTN Binge eating disorder Bipolar disorder, in partial remission, most recent episode manic DJD (degenerative joint disease) Dyspnea on exertion Gallstones GERD (gastroesophageal reflux disease) GI disease Hx MRSA infection Morbid obesity Morbid obesity Nephrolithiasis Nephropathy Obstructive sleep apnea Posttraumatic stress disorder Supraventricular tachycardia Tinea cruris Surgical History H/O oral surgery History of ankle surgery S/P adenoidectomy S/P cholecystectomy S/P hernia repair S/P knee surgery S/P myringotomy with insertion of tube S/P tendon repair S/P vasectomy Family History Other Adopted Social History Smoking and tobacco status: former smoker Smoking risk assessment/counseling performed?: Yes Tobacco counseling given: counseling >3 minutes Alcohol intake: former Year of sobriety/quit date alcohol: 11mo Adopted: Yes Caregiver/support person: No Lives independently: Yes Household members: spouse Housing: Apartment Marital status: Number of children: 2 Highest education level completed: Some College, No Degree service: Yes status: Medically Discharged/Retired branch: [employer] Current occupational status: disabled Pets and animals: Yes Pets & animals: dog(s) History of recent travel: No Leisure activites: games Sexually active: Yes Current gender identity: Male Leda/Adventism: None Special leda needs: No Agree to transfusion: Yes Financial difficulty paying for basics: Not Very Hard Course Vital Signs: Vital signs: Vital Signs Temperature 98.5 F 08/27/21 01:05 Pulse Rate 90 08/27/21 01:05 Respiratory Rate 18 08/27/21 01:05 Blood Pressure 145/75 08/27/21 01:05 Pulse Oximetry 98 08/27/21 01:05 MDM - Extremity Injury (Lower) Medical Decision Making 40-year-old male patient comes in today with redness and bruising from an injury over the last week. On exam patient has area of erythema and warmth to the right lower extremity and anterior aspect. Patient also has a noticeable contusion to the right lower leg proximally to the extremity. Distal pulses are intact. No significant swelling is noted. Cap refill is intact. Differential diagnosis includes DVT, cellulitis, contusion. Negative Homans' sign and no other sign of DVT is noted. Patient has tenderness to the anterior aspect, patient has mild cellulitis. Patient was given 1 g of ceftriaxone. We will continue with cephalexin 500 mg every 6 hours for 7 days. Patient reported understanding of care plan and need for follow-up or return to the ER. This patient was originally seen by SCOTTY Lee.? I agree with his history, evaluation, and treatment. Lab Data : 08/27/21 01:29 08/27/21 01:29 Laboratory Results WBC 8.5 10^3/uL (4.0-10.0) 08/27/21: RBC 5.55 10^6/uL (4.1-5.3) H 08/27/21: Hgb 14.8 g/dL (11.7-16.6) 08/27/21: Hct 44.1 % (42.0-52.0) 08/27/21: MCV 79.5 fl (80-94) L 08/27/21: MCH 26.7 pg (28.0-34.0) L 08/27/21 01: MCHC 33.6 g/dL (30.0-36.0) 08/27/21 01: RDW 12.6 % (12.1-15.1) 08/27/21 01: Plt Count 310 10^3/cmm (130-400) 08/27/21 01: MPV 10.0 fL (7.4-10.4) 08/27/21 01: Neut % (Auto) 53.6 % 08/27/21 01: Lymph % (Auto) 32.2 % 08/27/21 01: [place] % (Auto) 9.5 % 08/27/21 01: Eos % (Auto) 3.1 % 08/27/21 01: Baso % (Auto) 1.1 % 08/27/21 01: Neut # (Auto) 4.57 10^3/uL (1.8-7.7) 08/27/21 01: Lymph # (Auto) 2.7 10^3/uL (0.8-4.8) 08/27/21 01: [place] # (Auto) 0.8 10^3/uL (0.2-0.9) 08/27/21 01: Eos # (Auto) 0.3 10^3/uL (0.0-0.8) 08/27/21 01: Baso # (Auto) 0.1 10^3/uL (0.0-0.1) 08/27/21 01: Nucleated RBC % (auto) 0 % 08/27/21 01: Nucleated RBCs # 0.0 /100WBC 08/27/21 01: Sodium 134 mmol/L (136-145) L 08/27/21 01: Potassium 3.4 mmol/L (3.5-5.1) L 08/27/21 01: Chloride 97 mmol/L (98-107) L 08/27/21 01: Carbon Dioxide 25 mmol/L (22-29) 08/27/21 01: Anion Gap 15.4 (5-19) 08/27/21 01: BUN 7 mg/dL (6-20) 08/27/21 01:29 Creatinine 0.6 mg/dL (0.7-1.2) L 08/27/21 01:29 GFR Calculation 148.5 mL/min (90-130) H 08/27/21 01:29 Glucose 335 mg/dL (65-115) H 08/27/21 01:29 Calculated Osmolality 289 mOsm/kg (285-295) 08/27/21 01:29 Calcium 9.3 mg/dL (8.5-10.5) 08/27/21 01:29 Total Bilirubin 0.6 mg/dL (0.15-1.2) 08/27/21 01:29 AST 23 U/L (0-40) 08/27/21 01:29 ALT 38 U/L (0-41) 08/27/21 01:29 Alkaline Phosphatase 104 IU/L (40-130) 08/27/21 01:29 C-Reactive Protein 21.5 mg/L (0.0-4.9) H 08/27/21 01:29 Total Protein 6.8 g/dL (6.6-8.7) 08/27/21 01:29 Albumin 4.0 g/dL (3.5-5.2) 08/27/21 01:29 Globulin 2.8 g/dL (1.3-4.6) 08/27/21 01:29 Discharge Plan Discharge Patient Disposition: Home Clinical Impression: Cellulitis Qualifiers: Site of cellulitis: extremity Site of cellulitis of extremity: lower extremity Laterality: right Qualified Code(s): L03.115 - Cellulitis of right lower limb Condition: Stable Prescriptions: New cephalexin 500 mg capsule 500 mg PO Q6H 7 Days Qty: 28 0RF No Action (DME) Custom Molded Orthotics See Rx Instructions .Route .MEDSUPPLY Qty: 1 0RF Rx Instructions: As directed [employer] O Lantus Solostar U-100 Insulin 100 unit/mL (3 mL) insulin pen 78 unit SUBCUT BID Qty: 15 3RF Rx Instructions: Inject 78 units twice a day. tizanidine 4 mg capsule 4 mg PO BID PRN (Reason: muscle spasticity) 7 Days Qty: 7 0RF digoxin 125 mcg (0.125 mg) tablet 125 mcg PO QAM 0RF pantoprazole 20 mg tablet,delayed release (DR/EC) 20 mg PO DAILY 0RF simvastatin 20 mg tablet 20 mg PO DAILY 0RF isosorbide mononitrate 30 mg tablet extended release 24 hr 30 mg PO DAILY 30 Days Qty: 30 5RF (DME) Diabetic shoes with 3 sets of insoles See Rx Instructions .Route .MEDSUPPLY Qty: 1 0RF Rx Instructions: As directed by [facility] Victoza 2-Henri 0.6 mg/0.1 mL (18 mg/3 mL) pen injector 1.8 mg SUBCUT QAM Qty: 6 0RF Rx Instructions: see pharmacy comment metformin 1,000 mg tablet 1,000 mg PO BID Qty: 180 0RF Rx Instructions: Take one tablet by mouth twice a day. insulin aspart U-100 [Novolog Flexpen U-100 Insulin] 100 unit/mL (3 mL) insulin pen 10 unit SUBCUT TID Qty: 15 0RF Rx Instructions: Administer 10 units subcut three times a day before meals. hydrocortisone 1 % cream 1 applic topical BID Qty: 28.4 0RF ibuprofen 800 mg tablet 800 mg PO Q8H PRN (Reason: pain) Qty: 20 0RF lisinopril 40 mg Tablet 40 mg PO QAM 0RF aspirin 81 mg Tablet,Delayed Release (Dr/Ec) 81 mg PO QAM 0RF amlodipine 10 mg tablet 10 mg PO DAILY 0RF metoprolol tartrate 50 mg tablet 100 mg PO BID 0RF Rx Instructions: see pharmacy comment Discharge Orders: Discharge ED (Routine); Ordered 08/27/21 Ordered By: Wyatt Barker Referrals: Manda Raza MD [Primary Care Provider] - Discharge Diet: Usual diet Discharge Activity: Increase activity as tolerated Patient Instructions: Cellulitis (ED) Activity Restrictions/Additional Instructions: Home and rest. Elevate leg. Take antibiotics as directed. Drink plenty of water with medications. Monitor blood sugar. Follow-up with primary care in 3 days. Return to ER for high fever greater than 100.3, increasing redness and swelling, or new concerns. Coding Level of Care Code ED Roll Form Operator for Christin Fwd Exam Comprehensive
[2021-08-27 00:50] VITALS: BP 160/102; PULSE 94; RESP 18; TEMP 36.9; O2SAT 97; BMI 58.1
[2021-08-27 01:05] VITALS: BP 145/75; PULSE 90; RESP 18; TEMP 36.9; O2SAT 98
[2021-08-27 01:34] LABS: Basophils # 0.1 10^3/uL (0.0-0.1); Basophils % 1.1 %; Eosinophils # 0.3 10^3/uL (0.0-0.8); Eosinophils % 3.1 %; Hematocrit 44.1 % (42.0-52.0); Hemoglobin 14.8 g/dL (11.7-16.6); Lymphocytes # 2.7 10^3/uL (0.8-4.8); Lymphocytes % 32.2 %; Mean Corpuscular HGB Conc 33.6 g/dL (30.0-36.0); Mean Corpuscular Hemoglobin 26.7 pg (28.0-34.0); Mean Corpuscular Volume 79.5 fl (80-94); Monocytes # 0.8 10^3/uL (0.2-0.9); Monocytes % 9.5 %; Neutrophils # 4.57 10^3/uL (1.8-7.7); Neutrophils % 53.6 %; Nucleated Red Blood Cells % 0 %; Platelet Count 310 10^3/cmm (130-400); Red Blood Count 5.55 10^6/uL (4.1-5.3); Red Cell Distribution Width 12.6 % (12.1-15.1); White Blood Count 8.5 10^3/uL (4.0-10.0)
[2021-08-27 01:57] LABS: Alanine Aminotransferase 38 U/L (0-41); Alkaline Phosphatase 104 IU/L (40-130); Anion Gap 15.4 (5-19); Aspartate Amino Transferase 23 U/L (0-40); Blood Urea Nitrogen 7 mg/dL (6-20); C Reactive Protein 21.5 mg/L (0.0-4.9); Calcium 9.3 mg/dL (8.5-10.5); Carbon Dioxide 25 mmol/L (22-29); Chloride 97 mmol/L (98-107); Globulin 2.8 g/dL (1.3-4.6); Glomerular Filtration Rate 148.5 mL/min (90-130); Glucose 335 mg/dL (65-115); Osmolality Calculated 289 mOsm/kg (285-295); Potassium 3.4 mmol/L (3.5-5.1); Sodium 134 mmol/L (136-145); Total Bilirubin 0.6 mg/dL (0.15-1.2); Total Protein 6.8 g/dL (6.6-8.7)
[2021-08-27] MEDS: cefTRIAXone 1,000 MG in lidocaine 1% 2.1 ML 2.1 MG IM (03:00)
[2021-08-27 03:04] VITALS: BP 145/75; PULSE 90; RESP 18; TEMP 36.9; O2SAT 98
== END 2021-08-27 03:05 | disposition home or self-care (01) ==
PROVIDERS: Emergency Provider Nurse Practitioner Family; PCP Family Medicine
DX: L03.115 Cellulitis of right lower limb (principal); Z79.84 Long term (current) use of oral hypoglycemic drugs; Z79.82 Long term (current) use of aspirin; Z79.4 Long term (current) use of insulin; I10 Essential (primary) hypertension; Z87.891 Personal history of nicotine dependence
CPT/HCPCS: 80053; 85025; 86140; 96372; 99283; J0696

== ENCOUNTER → 2021-09-15 09:37 | Outpatient (BNVA) | payer OTHER, MEDICAID, SELFPAY ==
[2021-06-12 09:39] VITALS: BP 132/80; BMI 61.5
== END ==
PROVIDERS: PCP Family Medicine; Visit Provider Counselor Mental Health
DX: F31.73 Bipolar disorder, in partial remission, most recent episode manic (principal); F50.81 Binge eating disorder; F32.9 Major depressive disorder, single episode, unspecified; F43.10 Post-traumatic stress disorder, unspecified
CPT/HCPCS: 90832

== ENCOUNTER → 2021-09-21 14:24 | Outpatient (BNVA) | payer OTHER, MEDICAID, SELFPAY ==
[2021-06-12 09:39] VITALS: BP 132/80; BMI 61.5
== END ==
PROVIDERS: PCP Family Medicine; Visit Provider Counselor Mental Health
DX: F31.73 Bipolar disorder, in partial remission, most recent episode manic (principal); F50.81 Binge eating disorder; F32.9 Major depressive disorder, single episode, unspecified; F43.10 Post-traumatic stress disorder, unspecified
CPT/HCPCS: 90834

== ENCOUNTER 2021-09-26 20:34 | Emergency (ER) | payer OTHER, MEDICAID, SELFPAY ==
[2021-06-12 09:39] VITALS: BP 132/80; BMI 61.5
[2021-09-26 20:45] VITALS: BP 158/108; PULSE 71; RESP 20; TEMP 36.4; O2SAT 97; BMI 57.5
--- NOTE | 2021-09-26 20:53 | ED.C_ITS ---
HPI - Psych General: Chief Complaint: Psychiatric Symptoms Stated Complaint: Anxiety Time Seen by Provider: 09/26/21 20:53 History of Present Illness: Mr. Buckley is a 41-year-old gentleman with complex past medical history and psychiatric see history who presents to the emergency department due to depression and feeling overwhelmed. He reports recent social stressors have made his depression worse. He is currently in the process of going through divorce and him and his soon-to-be ex- are behind in rent adding stress to his current symptoms. He reports feeling overwhelmed regarding circumstances today and crying in bed at which point his called EMS. He does endorse cutting his legs superficially last night and thoughts of cutting again today to however he denies that this was for self injury. He does it at times for stress release and taking his mind off current situation. He denies suicidal or homicidal ideation or intent. He has a very remote history of suicide attempt however no recent suicidal thoughts. He follows with [facility] and believes that therapy is helping. Due to issues with losing weight he is not currently on medication however feels that outside the current stressors he has been doing okay. Otherwise denies medical complaints. No other specific changes in health, exacerbating, or alleviating factors identified. Onset (ago): day(s) History of same: Yes Context: not taking psychiatric medications and significant life stressor Review of Systems General: Reports: 10 or more systems reviewed and unremarkable except in HPI and below PFSH ED PFSH: Medical History Alcohol dependence, in remission Benign essential HTN Binge eating disorder Bipolar disorder, in partial remission, most recent episode manic DJD (degenerative joint disease) Dyspnea on exertion Gallstones GERD (gastroesophageal reflux disease) GI disease Hx MRSA infection Morbid obesity Morbid obesity Nephrolithiasis Nephropathy Obstructive sleep apnea Posttraumatic stress disorder Supraventricular tachycardia Tinea cruris Surgical History H/O oral surgery History of ankle surgery S/P adenoidectomy S/P cholecystectomy S/P hernia repair S/P knee surgery S/P myringotomy with insertion of tube S/P tendon repair S/P vasectomy Family History Other Adopted Social History Smoking and tobacco status: current every day smoker (VAPE) e-cigarettes E- Cigarette Details: vaporizer device and without nicotine Smoking risk assessment/counseling performed?: Yes Tobacco counseling given: counseling >3 minutes Alcohol intake: former Year of sobriety/quit date alcohol: 11mo Adopted: Yes Caregiver/support person: No Lives independently: Yes Household members: spouse Housing: Apartment Marital status: Number of children: 2 Highest education level completed: Some College, No Degree service: Yes status: Medically Discharged/Retired branch: [employer] Current occupational status: disabled Pets and animals: Yes Pets & animals: dog(s) History of recent travel: No Leisure activites: games Sexually active: Yes Current gender identity: Male Leda/Zoroastrianism: None Special leda needs: No Agree to transfusion: Yes Financial difficulty paying for basics: Not Very Hard Physical Exam Const: COMMON NORMALS: alert GENERAL APPEARANCE: cooperative and well developed HENMT: COMMON NORMALS: normocephalic and atraumatic HEAD & SCALP: normocephalic and atraumatic Eye: COMMON NORMALS: conjunctivae normal CONJUNCTIVA: Yes conjunctivae normal SCLERA: sclerae normal Neck/C-Spine: COMMON NORMALS: supple GENERAL: Yes trachea midline Resp: COMMON NORMALS: normal respiratory effort EFFORT & INSPECTION: Yes able to speak in complete sentences Cardio: COMMON NORMALS: regular rate and regular rhythm RATE: regular rate RHYTHM: regular rhythm GI: COMMON NORMALS: Soft to palpation PALPATION: Yes Soft to palpation and No Tenderness to palpation present (GI) PERCUSSION: normal to percussion Extremity: GENERAL: Yes normal exam except as noted and No edema Neuro: COMMON NORMALS: moves all extremities SENSORIUM/ORIENTATION: Yes al ert and No Orientation impaired Psych: COMMON NORMALS: mental status grossly normal and Normal thought process present MOOD & AFFECT: Yes depressed mood THOUGHT PROCESS: Normal thought process present Skin: NARRATIVE SKIN EXAM: superficial thigh lacerations. Tdap uptodate Course ED course: - Patient was seen and evaluated by me at bedside -Vital signs obtained - Initial evaluation notable for exam as above, no injuries requiring repair. -Discussed with psychiatry who performed teleconsult. Patient safe for discharge, he denies suicidal or homicidal ideation. - Upon serial reexamination after treatment the patient was similar - Based on patient history, evaluation, and testing as interpreted the most likely cause of the patient's condition is depression - The results of ED evaluation were discussed with the patient including followup plan, and return precautions. The patient verbalized understanding and felt safe for discharge. - Patient discharged in satisfactory condition. Note: Click bubbles or prepopulated cabrera in note writing are used for assistance with data collection and billing and are inherently more limited than narrative and other text portions of this note. Please use narrative for additional clinical history and defer to narrative/free test for any case of contradictory information. If information appears in only free text or click bubble it should be considered present or absent as reported. Please contact note financial writer for clarifications of clinical information or contradictory information. MDM is a brief summary, contradictory or erroneous seeming information should be clarified and full note should be reviewed. Vital Signs: Vital signs: Vital Signs Temperature 97.6 F 09/26/21 20:45 Pulse Rate 71 09/26/21 20:45 Respiratory Rate 20 H 09/26/21 20:45 Blood Pressure 158/108 09/26/21 20:45 Pulse Oximetry 97 09/26/21 20:45 MDM - Psych Medical Decision Making 41 yo male presenting for MHE. teleconsult with psych. Denies HI/SI. Cutting related injuries minor. Satisfactory for outpatient management as patient does not desire admission and no indications for 96hr hold. Medical Records I reviewed the patient's medical records. Lab Data I reviewed the patient's lab results. Discharge Plan Discharge Patient Disposition: Home Clinical Impression: Depression, Deliberate self-cutting Condition: Stable Prescriptions: No Action (DME) Custom Molded Orthotics See Rx Instructions .Route .MEDSUPPLY Qty: 1 0RF Rx Instructions: As directed J P & O Lantus Solostar U-100 Insulin 100 unit/mL (3 mL) insulin pen 78 unit SUBCUT BID Qty: 15 3RF Rx Instructions: Inject 78 units twice a day. tizanidine 4 mg capsule 4 mg PO BID PRN (Reason: muscle spasticity) 7 Days Qty: 7 0RF digoxin 125 mcg (0.125 mg) tablet 125 mcg PO QAM 0RF pantoprazole 20 mg tablet,delayed release (DR/EC) 20 mg PO DAILY 0RF isosorbide mononitrate 30 mg tablet extended release 24 hr 30 mg PO DAILY 30 Days Qty: 30 5RF (DME) Diabetic shoes with 3 sets of insoles See Rx Instructions .Route .MEDSUPPLY Qty: 1 0RF Rx Instructions: As directed by SHELLI&O metformin 1,000 mg tablet 1,000 mg PO BID Qty: 180 0RF Rx Instructions: Take one tablet by mouth twice a day. insulin aspart U-100 [Novolog Flexpen U-100 Insulin] 100 unit/mL (3 mL) insulin pen 10 unit SUBCUT TID Qty: 15 3RF Rx Instructions: Administer 10 units subcut three times a day before meals. Victoza 2-Henri 0.6 mg/0.1 mL (18 mg/3 mL) pen injector 1.8 mg SUBCUT QAM Qty: 9 3RF Rx Instructions: see pharmacy comment lisinopril 40 mg Tablet 40 mg PO QAM 0RF aspirin 81 mg Tablet,Delayed Release (Dr/Ec) 81 mg PO QAM 0RF metoprolol tartrate 50 mg tablet 100 mg PO BID 0RF atorvastatin 20 mg Tablet 20 mg PO QPM 0RF albuterol sulfate 90 mcg/actuation Hfa Aerosol Inhaler 2 puff INHALATION Q6H PRN (Reason: Shortness Of Breath) 0RF Vitamin D3 25 mcg (1,000 unit) Tablet 25 mcg PO DAILY 0RF Discharge Orders: Discharge ED (Routine); Ordered 09/26/21 Ordered By: Jr Sue Discharge Diet: Usual diet Discharge Activity: Resume usual activity Patient Instructions: Depression (ED) Activity Restrictions/Additional Instructions: Thank you for visiting the emergency department. You were seen and evaluated for depression and self-harm behavior. After discussion with psychiatry and ED evaluation it is reasonable to discharge you. Please ensure that you follow-up with your mental health provider within the next few days. Return to the emergency department for thoughts of hurting yourself or others, or anything else that you are concerned about and feel needs emergency department evaluation. Coding Level of Care Code ED Chemistry Technical Officer for Christin Chang
--- NOTE | 2021-09-26 21:21 | PC.PHAR ---
PT STATES HE HAS NOT TAKEN ANY OF HIS MEDICATIONS FOR AT LEAST 2 WEEKS. STATES HE TAKES ISOSORBIDE MONONITRATE, LISINOPRIL, PANTOPRAZOLE, AND TIZANIDINE - PT STATES HE ONLY FILLS AT [facility] BUT NONE OF THESE MEDS SHOW ON EXTERNAL MED LIST.
== END 2021-09-26 22:55 | disposition home or self-care (01) ==
PROVIDERS: Emergency Provider Emergency Medicine
DX: F41.9 Anxiety disorder, unspecified (principal); F32.A Depression, unspecified; S80.922A Unspecified superficial injury of left lower leg, initial encounter; S80.921A Unspecified superficial injury of right lower leg, initial encounter; X78.9XXA Intentional self-harm by unspecified sharp object, initial encounter; F17.290 Nicotine dependence, other tobacco product, uncomplicated
CPT/HCPCS: 99283

== ENCOUNTER → 2021-09-28 07:19 | Outpatient (BNVA) | payer OTHER, MEDICAID, SELFPAY ==
[2021-06-12 09:39] VITALS: BP 132/80; BMI 61.5
== END ==
PROVIDERS: Visit Provider Counselor Mental Health
DX: F31.73 Bipolar disorder, in partial remission, most recent episode manic (principal); F32.9 Major depressive disorder, single episode, unspecified; F43.10 Post-traumatic stress disorder, unspecified; F50.81 Binge eating disorder
CPT/HCPCS: 90834

== ENCOUNTER → 2021-10-04 10:12 | Outpatient (BNVA) | payer OTHER, MEDICAID, SELFPAY ==
[2021-06-12 09:39] VITALS: BP 132/80; BMI 61.5
== END ==
PROVIDERS: Referring Provider Family Medicine; Visit Provider Orthopaedic Surgery
DX: M25.511 Pain in right shoulder (principal); F17.210 Nicotine dependence, cigarettes, uncomplicated
CPT/HCPCS: 99213

== ENCOUNTER 2021-11-03 17:05 | Emergency (ER) | payer OTHER, MEDICAID, SELFPAY ==
[2021-06-12 09:39] VITALS: BP 132/80; BMI 61.5
--- NOTE | 2021-11-03 17:10 | XRR_ITS ---
PROCEDURE INFORMATION: Exam: XR Right Knee Exam date and time: 11/03/2021 5:21 PM Age: 41 years old Clinical indication: Injury or trauma; Fall; Sprain or strain and swelling (edema); Patella or knee; Right; Additional info: Right knee pain and injury TECHNIQUE: Imaging protocol: XR Right knee. Views: 3 views. COMPARISON: No relevant prior studies available. FINDINGS: Bones/joints: Small tricompartmental osteophytes compatible with osteoarthritis. No acute fracture or dislocation or joint effusion. Soft tissues: Normal. Other findings: Three nonweightbearing views submitted. XR/XR knee RT 3V* [id number] IMPRESSION: No acute fracture.
[2021-11-03 17:37] VITALS: BP 158/104; PULSE 117; RESP 18; TEMP 36.4; O2SAT 97; BMI 57.4
--- NOTE | 2021-11-03 17:50 | ED_ITS ---
HPI - Extremity Problem General: Chief complaint: Extremity Problem,Nontraumatic Stated complaint: right knee pain, injury Time Seen by Provider: 11/03/21 17:36 History of Present Illness: Patient is a 41-year-old male that comes to the ED with right knee pain. Patient denies any falls or trauma to cause right knee pain. Symptoms started today. He said [place] and when he was on his walk back home he started feeling the right knee pain. He rates his pain currently a 3 out of 10. Any weightbearing causes worsening pain. Associated symptoms: Deny chest pain, fever(s) or rash Review of Systems Const: Denies: fever(s), chills or fatigue Eyes: Denies: change in vision or eye discomfort ENMT: Denies: throat pain, odynophagia, nasal discharge or nasal congestion Card: Denies: chest pain, palpitations, edema, swelling of feet/ankles, dyspnea on exertion or orthopnea Resp: Denies: dyspnea, productive cough or non-productive cough GI: Denies: abdominal pain, nausea, vomiting, diarrhea, constipation or hematochezia : Denies: flank pain, difficulty urinating, dysuria or hematuria Musc: Reports: extremity pain (right knee pain); Denies: neck pain, back pain or extremity swelling Skin/Breast: Denies: rash or new lesions Neuro: Denies: headache(s), numbness in extremities or weakness in extremities [facility] ED PFSH: Medical History Alcohol dependence, in remission Benign essential HTN Binge eating disorder Bipolar disorder, in partial remission, most recent episode manic DJD (degenerative joint disease) Dyspnea on exertion Gallstones GERD (gastroesophageal reflux disease) GI disease Hx MRSA infection Morbid obesity Morbid obesity Nephrolithiasis Nephropathy Obstructive sleep apnea Posttraumatic stress disorder Supraventricular tachycardia Tinea cruris Surgical History H/O oral surgery History of ankle surgery S/P adenoidectomy S/P cholecystectomy S/P hernia repair S/P knee surgery S/P myringotomy with insertion of tube S/P tendon repair S/P vasectomy Family History Other Adopted Social History Smoking and tobacco status: current every day smoker (VAPE) e-cigarettes E- Cigarette Details: vaporizer device and without nicotine Smoking risk assessment/counseling performed?: Yes Tobacco counseling given: counseling >3 minutes Alcohol intake: former Year of sobriety/quit date alcohol: 11mo Adopted: Yes Caregiver/support person: No Lives independently: Yes Household members: spouse Housing: Apartment Marital status: Number of children: 2 Highest education level completed: Some College, No Degree service: Yes status: Medically Discharged/Retired branch: [employer] Current occupational status: disabled Pets and animals: Yes Pets & animals: dog(s) History of recent travel: No Leisure activites: games Sexually active: Yes Current gender identity: Male Leda/Jainism: None Special leda needs: No Agree to transfusion: Yes Financial difficulty paying for basics: Not Very Hard Physical Exam Const: COMMON NORMALS: no acute distress, patient oriented x3 and alert GENERAL APPEARANCE: cooperative NUTRITIONAL APPEARANCE: obese morbidly obese HENMT: COMMON NORMALS: normocephalic HEAD & SCALP: normocephalic MOUTH: Normal oral and palatal mucosa present THROAT: posterior oropharynx normal and uvula midline Neck/C-Spine: COMMON NORMALS: supple GENERAL: Yes normal visual inspection Resp: COMMON NORMALS: normal respiratory effort, No retractions, No use of accessory muscles and clear to auscultation bilaterally AUSCULTATION: clear to auscultation bilaterally Cardio: COMMON NORMALS: regular rate, regular rhythm, S1 normal heart sound present, S2 normal heart sound present, No gallops present (Cardio), No clicks present (Cardio), No murmurs present (Cardio) and Peripheral pulses 2+ thr oughout RATE: regular rate RHYTHM: regular rhythm HEART SOUNDS: S1 normal heart sound present and S2 normal heart sound present PERIPHERAL PULSES: Peripheral pulses 2+ throughout GI: COMMON NORMALS: Normal to inspection, nondistended, normoactive bowel sounds present, Soft to palpation, non-tender and no masses INSPECTION: Yes central obesity PALPATION: Yes Soft to palpation : COMMON NORMALS: Yes no CVA tenderness BLADDER/KIDNEY EXAM: Yes no CVA tenderness Back/Pelvis: COMMON NORMALS: no CVA tenderness Extremity: COMMON NORMALS: normal to inspection and full ROM Neuro: COMMON NORMALS: patient oriented x3 and moves all extremities SENSORIUM/ORIENTATION: Yes alert Skin: GENERAL SKIN EXAM: dry skin Course Vital Signs: Vital signs: Vital Signs Temperature 97.6 F 11/03/21 17:37 Pulse Rate 117 H 11/03/21 17:37 Respiratory Rate 18 11/03/21 17:37 Blood Pressure 158/104 11/03/21 17:37 Pulse Oximetry 97 11/03/21 17:37 MDM - Extremity (Nontraumatic) Medical Decision Making Patient is a 41-year-old male comes to the ED with right knee pain. Symptoms started after he walked to [employer] and on his way back home he started feeling pain in his right knee. Patient is morbidly obese and no other significant exam findings noted. X-ray right knee shows no acute fractures or findings. I think his right knee pain is due to being morbidly obese and being more up and active walking today. he Was diagnosed with a right knee pain and was discharged home. He was told to follow-up with his PCP in the next week for reevaluation. Return ED precautions given. Patient understood and agreed with plan. Lab Data Radiology Impressions Knee X-Ray 11/03/21 17:10 IMPRESSION: No acute fracture. Discharge Plan Discharge Patient Disposition: Home Clinical Impression: Knee pain, right Qualifiers: Chronicity: acute Qualified Code(s): M25.561 - Pain in right knee Condition: Stable Prescriptions: No Action (DME) Custom Molded Orthotics See Rx Instructions .Route .MEDSUPPLY Qty: 1 0RF Rx Instructions: As directed J P & O Buck Foxar U-100 Insulin 100 unit/mL (3 mL) insulin pen 78 unit SUBCUT BID Qty: 15 3RF Rx Instructions: Inject 78 units twice a day. tizanidine 4 mg capsule 4 mg PO BID PRN (Reason: muscle spasticity) 7 Days Qty: 7 0RF digoxin 125 mcg (0.125 mg) tablet 125 mcg PO QAM 0RF pantoprazole 20 mg tablet,delayed release (DR/EC) 20 mg PO DAILY 0RF isosorbide mononitrate 30 mg tablet extended release 24 hr 30 mg PO DAILY 30 Days Qty: 30 5RF (DME) Diabetic shoes with 3 sets of insoles See Rx Instructions .Route .MEDSUPPLY Qty: 1 0RF Rx Instructions: As directed by SHELLI&O metformin 1,000 mg tablet 1,000 mg PO BID Qty: 180 0RF Rx Instructions: Take one tablet by mouth twice a day. insulin aspart U-100 [Novolog Flexpen U-100 Insulin] 100 unit/mL (3 mL) insulin pen 10 unit SUBCUT TID Qty: 15 3RF Rx Instructions: Administer 10 units subcut three times a day before meals. Victoza 2-Henri 0.6 mg/0.1 mL (18 mg/3 mL) pen injector 1.8 mg SUBCUT QAM Qty: 9 3RF Rx Instructions: see pharmacy comment lisinopril 40 mg Tablet 40 mg PO QAM 0RF aspirin 81 mg Tablet,Delayed Release (Dr/Ec) 81 mg PO QAM 0RF metoprolol tartrate 50 mg tablet 100 mg PO BID 0RF atorvastatin 20 mg Tablet 20 mg PO QPM 0RF albuterol sulfate 90 mcg/actuation Hfa Aerosol Inhaler 2 puff INHALATION Q6H PRN (Reason: Shortness Of Breath) 0RF Vitamin D3 25 mcg (1,000 unit) Tablet 25 mcg PO DAILY 0RF Discharge Orders: Discharge ED (Routine); Ordered 11/03/21 Ordered By: Homero Khanna Discharge Diet: Regular Discharge Activity: Increase activity as tolerated Activity Restrictions/Additional Instructions: Follow-up with medical provider as directed in the next 5 to 7 days reevaluation. Rest, ice and elevate right leg to help with symptoms. Take [id number] Tylenol or Motrin for any pain. Return to the ER or your medical provider if condition worsens. Please read and understand discharge instructions. Thank you for choosing [facility] for your healthcare needs today. Please realize this is an emergency room and that we are providing you with a medical screening exam and this may not be complete and all inclusive of all the testing and or work up that you may need to determine your ailment or severity of your illness. It is very important that you follow up as instructed or that you return to the Emergency Department should you have concerns or if your condition changes or worsens in any way. Coding Level of Care Code ED Director Of Social Services for Christin Fwmarvel Exam Comprehensive
[2021-11-03] MEDS: HYDROcodone-acetaminophen 7.5-325 mg Tablet 1 TAB PO (18:30)
== END 2021-11-03 18:38 | disposition home or self-care (01) ==
PROVIDERS: Emergency Provider Physician Assistant
DX: M25.561 Pain in right knee (principal); E66.01 Morbid (severe) obesity due to excess calories; Z68.43 Body mass index [BMI] 50.0-59.9, adult
CPT/HCPCS: 73562; 99283

== ENCOUNTER → 2021-12-25 10:07 | Outpatient (BNVA) | payer MEDICAID, SELFPAY ==
[2021-06-12 09:39] VITALS: BP 132/80; BMI 61.5
== END ==
PROVIDERS: PCP Nurse Practitioner Family; Visit Provider Internal Medicine Cardiovascular Disease
DX: I10 Essential (primary) hypertension (principal); E66.01 Morbid (severe) obesity due to excess calories; Z68.43 Body mass index [BMI] 50.0-59.9, adult; I47.1 Supraventricular tachycardia; G47.33 Obstructive sleep apnea (adult) (pediatric); E11.9 Type 2 diabetes mellitus without complications; F17.290 Nicotine dependence, other tobacco product, uncomplicated; Z79.4 Long term (current) use of insulin; Z79.84 Long term (current) use of oral hypoglycemic drugs
CPT/HCPCS: 99214

== ENCOUNTER 2021-12-27 15:51 | Emergency (ER) | payer OTHER, MEDICAID, SELFPAY ==
[2021-06-12 09:39] VITALS: BP 132/80; BMI 61.5
[2021-12-27 16:44] VITALS: BP 167/97; PULSE 86; RESP 18; TEMP 36.1; O2SAT 96; BMI 57.4
[2021-12-27 16:56] LABS: Glucose Point of Care 312 mg/dL (70-110)
[2021-12-27 17:12] LABS: Basophils # 0.1 10^3/uL (0.0-0.1); Basophils % 1.1 %; Eosinophils # 0.2 10^3/uL (0.0-0.8); Eosinophils % 2.3 %; Hematocrit 47.1 % (42.0-52.0); Hemoglobin 15.2 g/dL (11.7-16.6); Lymphocytes # 2.7 10^3/uL (0.8-4.8); Lymphocytes % 32.5 %; Mean Corpuscular HGB Conc 32.3 g/dL (30.0-36.0); Mean Corpuscular Hemoglobin 26.2 pg (28.0-34.0); Mean Corpuscular Volume 81.2 fl (80-94); Mean Platelet Volume 9.8 fL (7.4-10.4); Monocytes # 0.7 10^3/uL (0.2-0.9); Neutrophils # 4.58 10^3/uL (1.8-7.7); Neutrophils % 55.9 %; Nucleated Red Blood Cells % 0 %; Platelet Count 299 10^3/cmm (130-400); Red Cell Distribution Width 13.2 % (12.1-15.1); White Blood Count 8.2 10^3/uL (4.0-10.0)
--- NOTE | 2021-12-27 17:19 | ECG_ITS ---
[facility] Test Date: 2021-12-27 Pat Name: Tyree Buckley Department: Room: Gender: Male Application Integration Architect: : 1980 Requested By: Wyatt Hinojosa Order Number: [id number] Hermes MD: Mich Rivas M.D. Measurements Intervals [place] Rate: 88 P: 55 KS: 206 QRS: 31 QRSD: 95 T: 46 QT: 371 QTc: 450 Interpretive Statements SINUS RHYTHM Compared to ECG 01/24/2021 19:04:56 First degree AV block no longer present Myocardial infarct finding no longer present Electronically Signed On 12-28-2021 21:22:24 CDT by Mich Rivas M.D. [id number]
[2021-12-27 17:38] LABS: Alanine Aminotransferase 38 U/L (0-41); Alkaline Phosphatase 104 IU/L (40-130); Aspartate Amino Transferase 24 U/L (0-40); Blood Urea Nitrogen 9 mg/dL (6-20); Calcium 9.4 mg/dL (8.5-10.5); Carbon Dioxide 28 mmol/L (22-29); Chloride 99 mmol/L (98-107); Globulin 2.7 g/dL (1.3-4.6); Glomerular Filtration Rate 123.7 mL/min (90-130); Glucose 293 mg/dL (65-115); Osmolality Calculated 293 mOsm/kg (285-295); Sodium 137 mmol/L (136-145); Total Bilirubin 0.4 mg/dL (0.15-1.2); Total Protein 6.7 g/dL (6.6-8.7)
[2021-12-27 17:43] LABS: Troponin(5th) Baseline 7 ng/L (0-15)
[2021-12-27 18:36] VITALS: BP 138/74; BP 151/81; BP 163/99
--- NOTE | 2021-12-27 18:36 | W.ED.DIZZY ---
HPI - Dizziness General: Chief Complaint: Dizziness Stated Complaint: dizzy, light headed Time Seen by Provider: 12/27/21 18:36 History of Present Illness: HPI Narrative: 41-year-old male patient comes in today with complaints of dizziness. Patient reports approximately 2 to 3 hours ago patient was setting playing a computer he felt dizzy. Patient reports increased dizziness with change of position. Patient is able to ambulate without difficulty. Patient appears nontoxic. Patient appears in no pain. Associated symptoms: Denies chest pain Review of Systems Const: Denies: fever(s) Card: Denies: chest pain Resp: Denies: dyspnea Neuro: Reports: dizziness; Denies: weakness in extremities or difficulty walking PFSH ED PFSH: Medical History Alcohol dependence, in remission Benign essential HTN Binge eating disorder Bipolar disorder, in partial remission, most recent episode manic DJD (degenerative joint disease) Dyspnea on exertion Gallstones GERD (gastroesophageal reflux disease) GI disease Hx MRSA infection Morbid obesity Morbid obesity Nephrolithiasis Nephropathy Obstructive sleep apnea Posttraumatic stress disorder Supraventricular tachycardia Tinea cruris Surgical History H/O oral surgery History of ankle surgery S/P adenoidectomy S/P cholecystectomy S/P hernia repair S/P knee surgery S/P myringotomy with insertion of tube S/P tendon repair S/P vasectomy Family History Other Adopted Social History Smoking and tobacco status: current some day smoker e-cigarettes E-Cigarette Details: vaporizer device and without nicotine Smoking risk assessment/counseling performed?: Yes Tobacco counseling given: counseling >3 minutes Alcohol intake: former Year of sobriety/quit date alcohol: 11mo Adopted: Yes Caregiver/support person: No Lives independently: Yes Household members: spouse Housing: Apartment Marital status: Number of children: 2 Highest education level completed: Some College, No Degree service: Yes status: Medically Discharged/Retired branch: [employer] Current occupational status: disabled Pets and animals: Yes Pets & animals: dog(s) History of recent travel: No Leisure activites: games Sexually active: Yes Current gender identity: Male Leda/Hinduism: None Special leda needs: No Agree to transfusion: Yes Financial difficulty paying for basics: Not Very Hard Physical Exam Const: COMMON NORMALS: alert HENMT: COMMON NORMALS: normocephalic HEAD & SCALP: normocephalic Neck/C-Spine: COMMON NORMALS: full ROM Resp: COMMON NORMALS: normal respiratory effort and clear to auscultation bilaterally AUSCULTATION: clear to auscultation bilaterally Cardio: COMMON NORMALS: regular rate and regular rhythm RATE: regular rate RHYTHM: regular rhythm GI: COMMON NORMALS: non-tender Extremity: COMMON NORMALS: normal to inspection and full ROM Neuro: SENSORIUM/ORIENTATION: Yes alert Skin: COMMON NORMALS: no rashes or lesions noted GENERAL SKIN EXAM: no rashes or lesions noted Course Vital Signs: Vital signs: Vital Signs Temperature 96.9 F L 12/27/21 16:44 Pulse Rate 89 12/27/21 18:37 Respiratory Rate 16 12/27/21 18:37 Blood Pressure 163/99 12/27/21 18:37 Pulse Oximetry 95 12/27/21 18:37 Oxygen Delivery Me thod 12/27/21 18:37 MDM - Dizziness Medical Decision Making Patient comes in today for concerns of dizziness. Patient appears nontoxic. Respirations are even lungs are decreased in the bases. Heart rates regular without normal tones. Carotids are auscultated without any bruits. No edema is noted in lower extremities. Patient moves all extremities well. No focal neural deficits are noted. Differential diagnosis includes but not limited to benign positional vertigo, orthostatic hypotension, Anxiety, stroke syndrome, malingering. Patient ambulates well without any signs of other abnormalities or neural deficits. Suspect patient probably has benign positional vertigo. We will treat patient with some antihistamine to help with his dizziness. Patient reported understanding of care plan and need for follow-up or return to the ER. Lab Data : 12/27/21 17:00 12/27/21 17:00 Laboratory Results WBC 8.2 10^3/uL (4.0-10.0) 12/27/21 17:00 RBC 5.80 10^6/uL (4.1-5.3) H 12/27/21 17:00 Hgb 15.2 g/dL (11.7-16.6) 12/27/21 17:00 Hct 47.1 % (42.0-52.0) 12/27/21 17:00 MCV 81.2 fl (80-94) 12/27/21 17:00 MCH 26.2 pg (28.0-34.0) L 12/27/21 17:00 MCHC 32.3 g/dL (30.0-36.0) 12/27/21 17:00 RDW 13.2 % (12.1-15.1) 12/27/21 17:00 Plt Count 299 10^3/cmm (130-400) 12/27/21 17:00 MPV 9.8 fL (7.4-10.4) 12/27/21 17:00 Neut % (Auto) 55.9 % 12/27/21 17:00 Lymph % (Auto) 32.5 % 12/27/21 17:00 Overton % (Auto) 8.0 % 12/27/21 17:00 Eos % (Auto) 2.3 % 12/27/21 17:00 Baso % (Auto) 1.1 % 12/27/21 17:00 Neut # (Auto) 4.58 10^3/uL (1.8-7.7) 12/27/21 17:00 Lymph # (Auto) 2.7 10^3/uL (0.8-4.8) 12/27/21 17:00 Overton # (Auto) 0.7 10^3/uL (0.2-0.9) 12/27/21 17:00 Eos # (Auto) 0.2 10^3/uL (0.0-0.8) 12/27/21 17:00 Baso # (Auto) 0.1 10^3/uL (0.0-0.1) 12/27/21 17:00 Nucleated RBC % (auto) 0 % 12/27/21 17:00 Nucleated RBCs # 0.0 /100WBC 12/27/21 17:00 Sodium 137 mmol/L (136-145) 12/27/21 17:00 Potassium 4.0 mmol/L (3.5-5.1) 12/27/21 17:00 Chloride 99 mmol/L (98-107) 12/27/21 17:00 Carbon Dioxide 28 mmol/L (22-29) 12/27/21 17:00 Anion Gap 14.0 (5-19) 12/27/21 17:00 BUN 9 mg/dL (6-20) 12/27/21 17:00 Creatinine 0.7 mg/dL (0.7-1.2) 12/27/21 17:00 GFR Calculation 123.7 mL/min (90-130) 12/27/21 17:00 Glucose 293 mg/dL (65-115) H 12/27/21 17:00 POC Glucose 312 mg/dL (70-110) H 12/27/21 16:52 Calculated Osmolality 293 mOsm/kg (285-295) 12/27/21 17:00 Calcium 9.4 mg/dL (8.5-10.5) 12/27/21 17:00 Total Bilirubin 0.4 mg/dL (0.15-1.2) 12/27/21 17:00 AST 24 U/L (0-40) 12/27/21 17:00 ALT 38 U/L (0-41) 12/27/21 17:00 Alkaline Phosphatase 104 IU/L (40-130) 12/27/21 17:00 Troponin T Baseline 7 ng/L (0-15) 12/27/21 17:00 Total Protein 6.7 g/dL (6.6-8.7) 12/27/21 17:00 Albumin 4.0 g/dL (3.5-5.2) 12/27/21 17:00 Globulin 2.7 g/dL (1.3-4.6) 12/27/21 17:00 Discharge Plan Discharge Patient Disposition: Home Clinical Impression: Benign paroxysmal positional vertigo Qualifiers: Laterality: unspecified laterality Qualified Code(s): H81.10 - Benign paroxysmal vertigo, unspecified ear Condition: Stable Prescriptions: New Flonase Allergy Relief 50 mcg/actuation spray,suspension 1 spray intranasal BID Qty: 16 0RF Rx Instructions: administer into each nostril cetirizine 10 mg tablet 10 mg PO BID PRN (Reason: dizziness) Qty: 60 0RF No Action (DME) Custom Molded Orthotics See Rx Instructions .Route .MEDSUPPLY Qty: 1 0RF Rx Instructions: As directed J P & O Lantus Solostar U-100 Insulin 100 unit/mL (3 mL) insulin pen 78 unit SUBCUT BID Qty: 15 3RF Rx Instructions: Inject 78 units twice a day. tizanidine 4 mg capsule 4 mg PO BID PRN (Reason: muscle spasticity) 7 Days Qty: 7 0RF digoxin 125 mcg (0.125 mg) tablet 125 mcg PO QAM pantoprazole 20 mg tablet,delayed release (DR/EC) 20 mg PO DAILY (DME) Diabetic shoes with 3 sets of insoles See Rx Instructions .Route .MEDSUPPLY Qty: 1 0RF Rx Instructions: As directed by SHELLI&O isosorbide mononitrate 60 mg tablet extended release 24 hr 60 mg PO DAILY Qty: 90 3RF metformin 1,000 mg tablet 1,000 mg PO BID Qty: 180 0RF Rx Instructions: Take one tablet by mouth twice a day. insulin aspart U-100 [Novolog Flexpen U-100 Insulin] 100 unit/mL (3 mL) insulin pen 10 unit SUBCUT TID Qty: 15 3RF Rx Instructions: Administer 10 units subcut three times a day before meals. Victoza 2-Henri 0.6 mg/0.1 mL (18 mg/3 mL) pen injector 1.8 mg SUBCUT QAM Qty: 9 3RF Rx Instructions: see pharmacy comment lisinopril 40 mg Tablet 40 mg PO QAM aspirin 81 mg Tablet,Delayed Release (Dr/Ec) 81 mg PO QAM metoprolol tartrate 50 mg tablet 100 mg PO BID atorvastatin 20 mg Tablet 20 mg PO QPM albuterol sulfate 90 mcg/actuation Hfa Aerosol Inhaler 2 puff INHALATION Q6H PRN (Reason: Shortness Of Breath) Vitamin D3 25 mcg (1,000 unit) Tablet 25 mcg PO DAILY Discharge Orders: Discharge ED (Routine); Ordered 12/27/21 Ordered By: Wyatt Barker Referrals: Toña Ivey, CEPHALOMETRIC TRACER [Primary Care Provider] - Discharge Diet: Usual diet Discharge Activity: Increase activity as tolerated Patient Instructions: Benign Paroxysmal Positional Vertigo (ED) Activity Restrictions/Additional Instructions: Take cetirizine 10 mg 1 tablet twice a day to control dizziness. Drink plenty of water with meds. Use Flonase 1 spray each nostril twice a day to help with nasal drainage and equalizing pressure in the ears to control dizziness. Follow-up with primary care in 1 week. Return to ER for severe headache, fever greater than 100.4, or chest pain, or new concerns. Coding Level of Care Code ED Lawn And Garden Technician for Chg Fwd Exam Comprehensive
[2021-12-27 18:37] VITALS: BP 163/99; PULSE 89; RESP 16; O2SAT 95
[2021-12-27] MEDS: cetirizine 10 mg Tablet PO (18:54)
== END 2021-12-27 18:56 | disposition home or self-care (01) ==
PROVIDERS: Emergency Provider Nurse Practitioner Family; PCP Nurse Practitioner Family
DX: H81.10 Benign paroxysmal vertigo, unspecified ear (principal); Z79.84 Long term (current) use of oral hypoglycemic drugs; Z79.82 Long term (current) use of aspirin; Z79.4 Long term (current) use of insulin; I10 Essential (primary) hypertension; F17.290 Nicotine dependence, other tobacco product, uncomplicated
CPT/HCPCS: 36416; 80053; 82962; 84484; 85025; 93005; 99285

== ENCOUNTER → 2022-01-02 09:28 | Outpatient (BNVA) | payer OTHER, MEDICAID, SELFPAY ==
[2021-06-12 09:39] VITALS: BP 132/80; BMI 61.5
== END ==
PROVIDERS: PCP Nurse Practitioner Family; Visit Provider Podiatrist Foot & Ankle Surgery
DX: E11.8 Type 2 diabetes mellitus with unspecified complications (principal); E11.42 Type 2 diabetes mellitus with diabetic polyneuropathy; L60.3 Nail dystrophy; M21.41 Flat foot [pes planus] (acquired), right foot; M21.42 Flat foot [pes planus] (acquired), left foot; Z79.84 Long term (current) use of oral hypoglycemic drugs; Z79.4 Long term (current) use of insulin
CPT/HCPCS: 11721

== ENCOUNTER 2022-01-21 11:18 | Emergency (ER) | payer OTHER, MEDICAID, SELFPAY ==
[2021-06-12 09:39] VITALS: BP 132/80; BMI 61.5
[2022-01-21 11:36] VITALS: BP 167/91; PULSE 74; RESP 16; TEMP 36.6; O2SAT 98; BMI 58.5
--- NOTE | 2022-01-21 11:51 | XRR_ITS ---
PROCEDURE INFORMATION: Exam: XR Right Foot Exam date and time: 01/21/2022 12:09 PM Age: 41 years old Clinical indication: Pain; Foot; Right; Additional info: Possible foreign body TECHNIQUE: Imaging protocol: Radiologic exam of the Right foot. Views: 3 or more views. COMPARISON: No relevant prior studies available. FINDINGS: Bones/joints: There is a benign os peroneus accessory ossicle. Enthesophytes are present off the os calcis at the Achilles insertion and plantar fascia origin. Soft tissues: There are benign-appearing soft tissue calcifications. XR/XR foot RT min 3V* 66070 IMPRESSION: No acute findings.Non acute findings as described above.
--- NOTE | 2022-01-21 12:33 | ED_ITS ---
HPI - Extremity Problem General: Chief complaint: Extremity Injury, Lower Stated complaint: glass in right foot Time Seen by Provider: 01/21/22 11:43 Source: patient Mode of arrival: wheelchair Limitations: no limitations History of Present Illness: 41-year-old male with a history of type 2 diabetes presents to the ER today for possible foreign body in the right foot. Patient reports he thinks he might of stepped on a piece of glass yesterday. Patient reports over the last 24 hours is become increasingly painful to bear weight on the right foot. Patient reports he had his roommate look at the bottom of the foot and there is an area that appears to have some broken skin where the pain is. Patient denies seeing the glass he stepped on though. Patient denies any bleeding or discharge from the area of pain. Patient reports he has some neuropathy but still has feeling in his feet. Review of Systems General: Reports: 10 or more systems reviewed and unremarkable except in HPI and below PFSH ED PFSH: Medical History Alcohol dependence, in remission Benign essential HTN Binge eating disorder Bipolar disorder, in partial remission, most recent episode manic DJD (degenerative joint disease) Dyspnea on exertion Gallstones GERD (gastroesophageal reflux disease) GI disease Hx MRSA infection Morbid obesity Morbid obesity Nephrolithiasis Nephropathy Obstructive sleep apnea Posttraumatic stress disorder Supraventricular tachycardia Tinea cruris Surgical History H/O oral surgery History of ankle surgery S/P adenoidectomy S/P cholecystectomy S/P hernia repair S/P knee surgery S/P myringotomy with insertion of tube S/P tendon repair S/P vasectomy Family History Other Adopted Social History Smoking and tobacco status: current every day smoker (VAPE) e-cigarettes E- Cigarette Details: vaporizer device and without nicotine Smoking risk assessment/counseling performed?: Yes Tobacco counseling given: counseling >3 minutes Alcohol intake: former Year of sobriety/quit date alcohol: 11mo Adopted: Yes Caregiver/support person: No Lives independently: Yes Household members: spouse Housing: Apartment Marital status: Number of children: 2 Highest education level completed: Some College, No Degree service: Yes status: Medically Discharged/Retired branch: [employer] Current occupational status: disabled Pets and animals: Yes Pets & animals: dog(s) History of recent travel: No Leisure activites: games Sexually active: Yes Current gender identity: Male Leda/Faith: None Special leda needs: No Agree to transfusion: Yes Financial difficulty paying for basics: Not Very Hard Physical Exam Const: COMMON NORMALS: no acute distress, patient oriented x3, no limitations, alert and well nourished Resp: COMMON NORMALS: normal respiratory effort EFFORT & INSPECTION: Yes able to speak in complete sentences Cardio: COMMON NORMALS: regular rate and regular rhythm RATE: regular rate RHYTHM: regular rhythm Extremity: NARRATIVE EXTREMITY EXAM: There is no erythema or signs of infection noted. There is an area on the plantar aspect of the right foot that has a callus/hard area. Patient reports there is mild tenderness with deep palpation of that area. No obvious signs of injury of a piece of glass or obvious piece of glass or foreign body noted. Neuro: COMMON NORMALS: patient oriented x3 SENSORIUM/ORIENTATION: Yes alert Psych: COMMON NORMALS: mental status grossly normal, Normal thought process present and cooperative THOUGHT PROCESS: Normal thought process present Skin: NARRATIVE SKIN EXAM: Of aThere is an area harder piece of callus that is noted. No obvious foreign body or piece of glass is noted of that area. This is only mildly tender to palpation. Course ED course: 41-year-old male presents to the ER today with concerns of a piece of glass or foreign body in the right foot. Patient reports he thinks he stepped on it yesterday and has become increasingly painful over the last 24 hours. Patient reports he has not seen anything in the bottom of his foot however a roommate thinks he saw something. He reports pain is with weightbearing. Denies any bleeding or signs of infection. Patient reports he is a type II diabetic and concerned for infection. Using pickups, I palpated and searched the area of concern. No obvious foreign body is noted. I was not able to remove anything. We will go ahead and get an x-ray at this time. Vital Signs: Vital signs: Vital Signs Temperature 97.9 F 01/21/22 11:36 Pulse Rate 74 01/21/22 11:36 Respiratory Rate 16 01/21/22 11:36 Blood Pressure 167/91 01/21/22 11:36 Pulse Oximetry 98 01/21/22 11:36 Oxygen Delivery Me thod 01/21/22 11:36 MDM - Extremity (Nontraumatic) Medical Decision Making 41-year-old male presents to the ER today with concerns of a piece of glass or foreign body in the right foot. Patient reports he thinks he stepped on it yesterday and has become increasingly painful over the last 24 hours. Patient reports he has not seen anything in the bottom of his foot however a roommate thinks he saw something. He reports pain is with weightbearing. Denies any bleeding or signs of infection. Patient reports he is a type II diabetic and concerned for infection. X-ray is normal. No foreign body seen on x-ray. Discussed findings with patient. I would recommend he try PRID drawing salve over area of concern. He should follow-up with his PCP in a couple of days. If pain persists I would recommend a referral to podiatry. I think this is more of a corn/callus that is causing pain versus a foreign body. Return to the ER with new or worsening symptoms. Patient verbalized understanding and was in agreement with the treatment plan. Lab Data Radiology Impressions Foot X-Ray 01/21/22 11:51 IMPRESSION: No acute findings.Non acute findings as described above. Critical Care Time Critical Care Time: Critical Care Time: No Discharge Plan Discharge Patient Disposition: Home Clinical Impression: Acute pain of right foot Condition: Stable Prescriptions: No Action (DME) Custom Molded Orthotics See Rx Instructions .Route .MEDSUPPLY Qty: 1 0RF Rx Instructions: As directed J P & O Lantus Solostar U-100 Insulin 100 unit/mL (3 mL) insulin pen 78 unit SUBCUT BID Qty: 15 3RF Rx Instructions: Inject 78 units twice a day. tizanidine 4 mg capsule 4 mg PO BID PRN (Reason: muscle spasticity) 7 Days Qty: 7 0RF digoxin 125 mcg (0.125 mg) tablet 125 mcg PO QAM pantoprazole 20 mg tablet,delayed release (DR/EC) 20 mg PO DAILY (DME) Diabetic shoes with 3 sets of insoles See Rx Instructions .Route .MEDSUPPLY Qty: 1 0RF Rx Instructions: As directed by SHELL[facility]O isosorbide mononitrate 60 mg tablet extended release 24 hr 60 mg PO DAILY Qty: 90 3RF metformin 1,000 mg tablet 1,000 mg PO BID Qty: 180 0RF Rx Instructions: Take one tablet by mouth twice a day. insulin aspart U-100 [Novolog Flexpen U-100 Insulin] 100 unit/mL (3 mL) insulin pen 10 unit SUBCUT TID Qty: 15 3RF Rx Instructions: Administer 10 units subcut three times a day before meals. Victoza 2-Henri 0.6 mg/0.1 mL (18 mg/3 mL) pen injector 1.8 mg SUBCUT QAM Qty: 9 3RF Rx Instructions: see pharmacy comment lisinopril 40 mg Tablet 40 mg PO QAM aspirin 81 mg Tablet,Delayed Release (Dr/Ec) 81 mg PO QAM metoprolol tartrate 50 mg tablet 100 mg PO BID Flonase Allergy Relief 50 mcg/actuation spray,suspension 1 spray intranasal BID Qty: 16 0RF Rx Instructions: administer into each nostril cetirizine 10 mg tablet 10 mg PO BID PRN (Reason: dizziness) Qty: 60 0RF atorvastatin 20 mg Tablet 20 mg PO QPM albuterol sulfate 90 mcg/actuation Hfa Aerosol Inhaler 2 puff INHALATION Q6H PRN (Reason: Shortness Of Breath) Vitamin D3 25 mcg (1,000 unit) Tablet 25 mcg PO DAILY Discharge Orders: Discharge ED (Routine); Ordered 01/21/22 Ordered By: Amaya Mendosa Referrals: Toña Ivey, ELASTIC ATTACHER OVERLOCK [Primary Care Provider] - Discharge Diet: Diabetic Discharge Activity: Increase activity as tolerated Patient Instructions: Opioid Safety Activity Restrictions/Additional Instructions: Do daily foot checks. Follow-up with PCP in 2 to 3 days and discuss possible referral to podiatry if pain continues. Return to the ER with new or worsening symptoms. Coding Level of Care Code ED Writer Technical Publications for Christin Fwd Exam Expanded Problem Focused
== END 2022-01-21 13:01 | disposition home or self-care (01) ==
PROVIDERS: Emergency Provider Physician Assistant; PCP Nurse Practitioner Family
DX: M79.671 Pain in right foot (principal); Z79.84 Long term (current) use of oral hypoglycemic drugs; Z79.82 Long term (current) use of aspirin; Z79.4 Long term (current) use of insulin; F17.290 Nicotine dependence, other tobacco product, uncomplicated; I10 Essential (primary) hypertension; E11.9 Type 2 diabetes mellitus without complications
CPT/HCPCS: 73630; 99283

== ENCOUNTER 2022-03-11 11:25 | Emergency (ER) | payer OTHER, SELFPAY ==
[2021-06-12 09:39] VITALS: BP 132/80; BMI 61.5
[2022-03-11 11:29] VITALS: BP 175/99; PULSE 98; RESP 18; TEMP 36.7; O2SAT 97; BMI 58.8
--- NOTE | 2022-03-11 11:33 | XRR_ITS ---
PROCEDURE INFORMATION: Exam: XR Right Foot Exam date and time: 03/11/2022 11:49 AM Age: 41 years old Clinical indication: Injury or trauma; Other: Hit side medial side of foot with softball; Blunt trauma; Right; Additional info: Softball injury TECHNIQUE: Imaging protocol: Radiologic exam of the Right foot. Views: 3 or more views. COMPARISON: No relevant prior studies available. FINDINGS: Bones/joints: Negative for acute bone abnormality Soft tissues: Normal. XR/XR foot RT min 3V* 11618 IMPRESSION: No acute findings.
--- NOTE | 2022-03-11 11:48 | ED_ITS ---
HPI - General Adult General: Chief complaint: Extremity Injury, Lower Stated complaint: Softball to the Right foot Time Seen by Provider: 03/11/22 11:47 History of Present Illness: Patient is a 41-year-old male with history diabetes, hypertension who presents the emergency room with complaints of right inner foot pain. 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 Since then, patient reports pain with ambulation and mild swelling of the right inner foot. This happened yesterday afternoon around 2 PM. Patient would like to get imaging today to determine whether he has any injuries. Denies any anticoagulation, any ankle pain, or any other focal pain or injuries. Onset:2pm yesterday Duration: ongoing Location:outside Severity:mild/moderate Associated symptoms: Deny chest pain, dyspnea, nausea, rash, palpitations or vomiting Review of Systems Const: Denies: fever(s) or chills Eyes: Denies: change in vision ENMT: Denies: mouth pain Card: Denies: chest pain or palpitations Resp: Denies: dyspnea or non-productive cough GI: Denies: abdominal pain, nausea, vomiting or diarrhea : Denies: dysuria Musc: Reports: extremity pain (R inner foot pain) Skin/Breast: Denies: rash or new lesions Neuro: Denies: weakness in extremities Psych: Reports: other (Normal mood) Carl/Lymph: Denies: easy bruising PFS ED PFSH: Medical History Alcohol dependence, in remission Benign essential HTN Binge eating disorder Bipolar disorder, in partial remission, most recent episode manic DJD (degenerative joint disease) Dyspnea on exertion Gallstones GERD (gastroesophageal reflux disease) GI disease Hx MRSA infection Morbid obesity Morbid obesity Nephrolithiasis Nephropathy Obstructive sleep apnea Posttraumatic stress disorder Supraventricular tachycardia Tinea cruris Surgical History H/O oral surgery History of ankle surgery S/P adenoidectomy S/P cholecystectomy S/P hernia repair S/P knee surgery S/P myringotomy with insertion of tube S/P tendon repair S/P vasectomy Family History Other Adopted Social History Smoking and tobacco status: current every day smoker (VAPE) e-cigarettes E- Cigarette Details: vaporizer device and without nicotine Smoking risk assessment/counseling performed?: Yes Tobacco counseling given: counseling >3 minutes Alcohol intake: former Year of sobriety/quit date alcohol: 11mo Adopted: Yes Caregiver/support person: No Lives independently: Yes Household members: spouse Housing: Apartment Marital status: Number of children: 2 Highest education level completed: Some College, No Degree service: Yes status: Medically Discharged/Retired branch: [employer] Current occupational status: disabled Pets and animals: Yes Pets & animals: dog(s) History of recent travel: No Leisure activites: games Sexually active: Yes Current gender identity: Male Leda/Worship: None Special leda needs: No Agree to transfusion: Yes Financial difficulty paying for basics: Not Very Hard Physical Exam Const: COMMON NORMALS: alert HENMT: COMMON NORMALS: atraumatic HEAD & SCALP: atraumatic MOUTH: moist mucous membranes not abnormal Eye: COMMON NORMALS: EOMs intact bilaterally and conjunctivae normal CONJUNCTIVA: Yes conjunctivae normal Neck/C-Spine: COMMON NORMALS: full ROM and supple Resp: COMMON NORMALS: normal respiratory effort and clear to auscultation bilaterally AUSCULTATION: clear to auscultation bilaterally Cardio: COMMON NORMALS: regular rate RATE: regular rate GI: COMMON NORMALS: Soft to palpation and non-tender PALPATION: Yes Soft to palpation OTHER: No focal TTP. NO guarding rebound, guarding, rigidity. No CVA tenderness to percussion. Neg Cai/Neg McBurney's point tenderness, no suprabupic tenderness to palpation. Extremity: COMMON NORMALS: full ROM NARRATIVE EXTREMITY EXAM: +R inner foot tenderness to palpation, no ankle tenderness to palpation +No lisfranc area tenderness +2+DP/Pt pulses on the R foot + Sensation intact in the right lower extremity Neuro: SENSORIUM/ORIENTATION: Yes alert MOTOR EXAM: No Abnormal motor strength present and Other motor observations present (no focal motor deficits) Psych: COMMON NORMALS: speech normal SPEECH: Yes normal speech MOOD & AFFECT: Yes euthymic mood Course Vital Signs: Vital signs: Vital Signs Temperature 98.0 F 03/11/22 11:29 Pulse Rate 98 03/11/22 11:29 Respiratory Rate 18 03/11/22 11:29 Blood Pressure 175/99 03/11/22 11:29 Pulse Oximetry 97 03/11/22 11:29 Oxygen Delivery Me thod 03/11/22 11:29 MDM - General Adult Medical Decision Making Patient is a 41-year-old male with history diabetes, hypertension who presents the emergency room with complaints of right inner foot pain. On exam patient has a R medial foot midfoot tenderness to palpation. Neurovascular exam intact. XR foot is negative for any findings. Patient is instructed to follow up with PCP for repeat XR if pain is persistent. Rx: Tylenol, lidocaine patch, and menthol PRN pain Disposition: Discharge. Patient counseled regarding diagnostic impression, treatment plan. Patient given ED strict return precautions to return for continuation, worsening, or development of new symptoms. Instructed to f/u w/ PCP regarding symptoms today. Patient verbalized understanding. f Lab Data Radiology Impressions Foot X-Ray 03/11/22 11:33 IMPRESSION: No acute findings. Imaging Data Other Imaging: Radiologist's impression: [address] [address] XRay Report Signed Patient: Tyree Buckley Unit #: [id number] : 1980 Age/Sex: 41 / M ADM Date: 03/11/22 Loc: ER Room/Bed: Attending Dr: Ordering Provider/Ordering MD: Anabel Amaro MD Date of Service: 03/11/22 Procedure(s): XR foot RT min 3V* [id number] Accession Number(s): [id number] Report Number: [id number] PROCEDURE INFORMATION: Exam: XR Right Foot Exam date and time: 03/11/2022 11:49 AM Age: 41 years old Clinical indication: Injury or trauma; Other: Hit side medial side of foot with softball; Blunt trauma; Right; Additional info: Softball injury TECHNIQUE: Imaging protocol: Radiologic exam of the Right foot. Views: 3 or more views. COMPARISON: No relevant prior studies available. FINDINGS: Bones/joints:? Negative for acute bone abnormality Soft tissues: Normal. XR/XR foot RT min 3V* [id number] IMPRESSION: No acute findings. ? Dictated By: Leo Cornelius Signed By: Leo Cornelius Signed Date/Time: 03/11/22 1224 DD/ 1149 Discharge Plan Discharge Patient Disposition: Home Clinical Impression: Foot pain Condition: Stable Prescriptions: New acetaminophen 500 mg tablet 500 mg PO Q6H PRN (Reason: pain) 5 Days Qty: 20 0RF lidocaine 5 % adhesive patch,medicated 1 patch topical DAILY PRN (Reason: pain) 30 Days Qty: 30 0RF Rx Instructions: leave on most painful area for up to 12 hrs Biofreeze (menthol) 5 % gel 1 ea topical BID PRN (Reason: pain) 10 Days Qty: 1 0RF No Action (DME) Custom Molded Orthotics See Rx Instructions .Route .MEDSUPPLY Qty: 1 0RF Rx Instructions: As directed J P & O Lantus Solostar U-100 Insulin 100 unit/mL (3 mL) insulin pen 78 unit SUBCUT BID Qty: 15 3RF Rx Instructions: Inject 78 units twice a day. tizanidine 4 mg capsule 4 mg PO BID PRN (Reason: muscle spasticity) 7 Days Qty: 7 0RF digoxin 125 mcg (0.125 mg) tablet 125 mcg PO QAM pantoprazole 20 mg tablet,delayed release (DR/EC) 20 mg PO DAILY (DME) Diabetic shoes with 3 sets of insoles See Rx Instructions .Route .MEDSUPPLY Qty: 1 0RF Rx Instructions: As directed by SHELLI&O isosorbide mononitrate 60 mg tablet extended release 24 hr 60 mg PO DAILY Qty: 90 3RF metformin 1,000 mg tablet 1,000 mg PO BID Qty: 180 0RF Rx Instructions: Take one tablet by mouth twice a day. insulin aspart U-100 [Novolog Flexpen U-100 Insulin] 100 unit/mL (3 mL) insulin pen 10 unit SUBCUT TID Qty: 15 3RF Rx Instructions: Administer 10 units subcut three times a day before meals. Victoza 2-Henri 0.6 mg/0.1 mL (18 mg/3 mL) pen injector 1.8 mg SUBCUT QAM Qty: 9 3RF Rx Instructions: see pharmacy comment lisinopril 40 mg Tablet 40 mg PO QAM aspirin 81 mg Tablet,Delayed Release (Dr/Ec) 81 mg PO QAM metoprolol tartrate 50 mg tablet 100 mg PO BID Flonase Allergy Relief 50 mcg/actuation spray,suspension 1 spray intranasal BID Qty: 16 0RF Rx Instructions: administer into each nostril cetirizine 10 mg tablet 10 mg PO BID PRN (Reason: dizziness) Qty: 60 0RF atorvastatin 20 mg Tablet 20 mg PO QPM albuterol sulfate 90 mcg/actuation Hfa Aerosol Inhaler 2 puff INHALATION Q6H PRN (Reason: Shortness Of Breath) Vitamin D3 25 mcg (1,000 unit) Tablet 25 mcg PO DAILY Discharge Orders: Discharge ED (Routine); Ordered 03/11/22 Ordered By: Anabel Amaro Referrals: Toña Ivey HEALTH SCIENCES MANAGER [Primary Care Provider] - Discharge Diet: Advance as tolerated Discharge Activity: Increase activity as tolerated Patient Instructions: Arthralgia (ED), Pain Management Activity Restrictions/Additional Instructions: Come back if you have any new or concerning issues. Repeat x-ray in 1 week to ensure that there is no any occult fracture. Come back to the emergency have any new concerning complaints. Please use your medicine as instructed for pain control. 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
== END 2022-03-11 12:37 | disposition home or self-care (01) ==
PROVIDERS: Emergency Provider Emergency Medicine; PCP Nurse Practitioner Family
DX: M79.671 Pain in right foot (principal); Z79.84 Long term (current) use of oral hypoglycemic drugs; Z79.02 Long term (current) use of antithrombotics/antiplatelets; Z79.82 Long term (current) use of aspirin; Z79.4 Long term (current) use of insulin; F17.290 Nicotine dependence, other tobacco product, uncomplicated; I10 Essential (primary) hypertension
CPT/HCPCS: 73630; 99283

== ENCOUNTER 2022-03-14 17:09 | Emergency (ER) | payer OTHER, SELFPAY ==
[2021-06-12 09:39] VITALS: BP 132/80; BMI 61.5
--- NOTE | 2022-03-14 17:15 | XRR_ITS ---
PROCEDURE INFORMATION: Exam: XR Left Hand Exam date and time: 03/14/2022 6:14 PM Age: 41 years old Clinical indication: Pain; Hand; Left; Additional info: Possibly broken TECHNIQUE: Imaging protocol: Radiologic exam of the Left hand. Views: 3 or more views. COMPARISON: No relevant prior studies available. FINDINGS: Bones/joints: Osseous structures are intact. Negative for fracture. Joint spaces are preserved. Soft tissues: Normal. XR/XR hand LT min 3V* [id number] IMPRESSION: No acute findings.
[2022-03-14 18:01] VITALS: BP 181/96; PULSE 85; RESP 18; TEMP 36.4; O2SAT 96; BMI 58.8
--- NOTE | 2022-03-14 18:53 | W.ED.EXTPRO ---
HPI - Extremity Problem General: Chief complaint: Extremity Injury, Upper Stated complaint: left finger injury Time Seen by Provider: 03/14/22 18:52 History of Present Illness: 41-year-old male patient was walking his dog and the dog got under foot causing him to fall and catch himself. Patient injured his left middle finger during the fall. This incident occurred this afternoon. On exam patient has some mild swelling but no obvious deformity. Associated symptoms: Deny fever(s) Review of Systems General: Reports: 10 or more systems reviewed and unremarkable except in HPI and below Const: Denies: fever(s) Musc: Reports: extremity pain PFS ED PFSH: Medical History Alcohol dependence, in remission Benign essential HTN Binge eating disorder Bipolar disorder, in partial remission, most recent episode manic DJD (degenerative joint disease) Dyspnea on exertion Gallstones GERD (gastroesophageal reflux disease) GI disease Hx MRSA infection Morbid obesity Morbid obesity Nephrolithiasis Nephropathy Obstructive sleep apnea Posttraumatic stress disorder Supraventricular tachycardia Tinea cruris Surgical History H/O oral surgery History of ankle surgery S/P adenoidectomy S/P cholecystectomy S/P hernia repair S/P knee surgery S/P myringotomy with insertion of tube S/P tendon repair S/P vasectomy Family History Other Adopted Social History Smoking and tobacco status: current every day smoker (VAPE) e-cigarettes E-Cigarette Details: vaporizer device and without nicotine Smoking risk assessment/counseling performed?: Yes Tobacco counseling given: counseling >3 minutes Alcohol intake: former Year of sobriety/quit date alcohol: 11mo Adopted: Yes Caregiver/support person: No Lives independently: Yes Household members: spouse Housing: Apartment Marital status: Number of children: 2 Highest education level completed: Some College, No Degree service: Yes status: Medically Discharged/Retired branch: [employer] Current occupational status: disabled Pets and animals: Yes Pets & animals: dog(s) History of recent travel: No Leisure activites: games Sexually active: Yes Current gender identity: Male Leda/Denominational: None Special leda needs: No Agree to transfusion: Yes Financial difficulty paying for basics: Not Very Hard Physical Exam Const: COMMON NORMALS: alert HENMT: COMMON NORMALS: normocephalic HEAD & SCALP: normocephalic Neck/C-Spine: COMMON NORMALS: full ROM Resp: COMMON NORMALS: normal respiratory effort Cardio: COMMON NORMALS: regular rate RATE: regular rate Extremity: LEFT UPPER EXTREMITY: Yes hand & digits (Tenderness to the proximal phalanx left middle finger) Left hand and digits: Yes inspection, Yes palpation and Yes ROM Neuro: SENSORIUM/ORIENTATION: Yes alert Course Vital Signs: Vital signs: Vital Signs Temperature 97.6 F 03/14/22 18:01 Pulse Rate 85 03/14/22 18:01 Respiratory Rate 18 03/14/22 18:01 Blood Pressure 181/96 03/14/22 18:01 Pulse Oximetry 96 03/14/22 18:01 Oxygen Delivery Me thod 03/14/22 18:01 MDM - Extremity (Nontraumatic) Medical Decision Making Patient comes in for injury to the left hand middle finger. On exam there is some swelling and tenderness on palpation to the middle finger of the left hand. No obvious deformity. Differential diagnosis includes fracture, sprain, contusion. X-ray notes no fracture. Reviewed exam with patient with recommendations for treatment and follow-up. They reported understanding agreed to plan. Lab Data Radiology Impressions Hand X-Ray 03/14/22 17:15 IMPRESSION: No acute findings. Discharge Plan Discharge Patient Disposition: Home Clinical Impression: Finger sprain Qualifiers: Encounter type: initial encounter Finger: middle finger Sprain of finger site: interphalangeal joint Laterality: left Qualified Code(s): S63.633A - Sprain of interphalangeal joint of left middle finger, initial encounter Condition: Stable Prescriptions: No Action (DME) Custom Molded Orthotics See Rx Instructions .Route .MEDSUPPLY Qty: 1 0RF Rx Instructions: As directed J P & O Lantus Solostar U-100 Insulin 100 unit/mL (3 mL) insulin pen 78 unit SUBCUT BID Qty: 15 3RF Rx Instructions: Inject 78 units twice a day. tizanidine 4 mg capsule 4 mg PO BID PRN (Reason: muscle spasticity) 7 Days Qty: 7 0RF digoxin 125 mcg (0.125 mg) tablet 125 mcg PO QAM pantoprazole 20 mg tablet,delayed release (DR/EC) 20 mg PO DAILY (DME) Diabetic shoes with 3 sets of insoles See Rx Instructions .Route .MEDSUPPLY Qty: 1 0RF Rx Instructions: As directed by SHELLI&O isosorbide mononitrate 60 mg tablet extended release 24 hr 60 mg PO DAILY Qty: 90 3RF metformin 1,000 mg tablet 1,000 mg PO BID Qty: 180 0RF Rx Instructions: Take one tablet by mouth twice a day. insulin aspart U-100 [Novolog Flexpen U-100 Insulin] 100 unit/mL (3 mL) insulin pen 10 unit SUBCUT TID Qty: 15 3RF Rx Instructions: Administer 10 units subcut three times a day before meals. Victoza 2-Henri 0.6 mg/0.1 mL (18 mg/3 mL) pen injector 1.8 mg SUBCUT QAM Qty: 9 3RF Rx Instructions: see pharmacy comment lisinopril 40 mg Tablet 40 mg PO QAM aspirin 81 mg Tablet,Delayed Release (Dr/Ec) 81 mg PO QAM metoprolol tartrate 50 mg tablet 100 mg PO BID Flonase Allergy Relief 50 mcg/actuation spray,suspension 1 spray intranasal BID Qty: 16 0RF Rx Instructions: administer into each nostril cetirizine 10 mg tablet 10 mg PO BID PRN (Reason: dizziness) Qty: 60 0RF atorvastatin 20 mg Tablet 20 mg PO QPM albuterol sulfate 90 mcg/actuation Hfa Aerosol Inhaler 2 puff INHALATION Q6H PRN (Reason: Shortness Of Breath) Vitamin D3 25 mcg (1,000 unit) Tablet 25 mcg PO DAILY acetaminophen 500 mg tablet 500 mg PO Q6H PRN (Reason: pain) 5 Days Qty: 20 0RF lidocaine 5 % adhesive patch,medicated 1 patch topical DAILY PRN (Reason: pain) 30 Days Qty: 30 0RF Rx Instructions: leave on most painful area for up to 12 hrs Biofreeze (menthol) 5 % gel 1 ea topical BID PRN (Reason: pain) 10 Days Qty: 1 0RF Discharge Orders: Discharge ED (Routine); Ordered 03/14/22 Ordered By: Wyatt Barker Referrals: Toña Ivey FNP [Primary Care Provider] - Discharge Diet: Usual diet Discharge Activity: Increase activity as tolerated Patient Instructions: Finger Sprain (ED) Activity Restrictions/Additional Instructions: Take the third and fourth finger together to support the injured finger. Use acetaminophen or ibuprofen as needed for pain. Increase activity as tolerated. Follow-up with primary care for further instruction. Return to ED for new concerns. Coding Level of Care Code ED [employer] Laminating Operator for Christin Chang
== END 2022-03-14 19:10 | disposition home or self-care (01) ==
PROVIDERS: Emergency Provider Nurse Practitioner Family; PCP Nurse Practitioner Family
DX: S63.633A Sprain of interphalangeal joint of left middle finger, initial encounter (principal); Z79.84 Long term (current) use of oral hypoglycemic drugs; Z79.82 Long term (current) use of aspirin; Z79.4 Long term (current) use of insulin; F17.290 Nicotine dependence, other tobacco product, uncomplicated; I10 Essential (primary) hypertension; W01.0XXA Fall on same level from slipping, tripping and stumbling without subsequent striking against object, initial encounter
CPT/HCPCS: 73130; 99283

== ENCOUNTER 2022-04-08 14:29 | Emergency (ER) | payer OTHER, SELFPAY ==
[2022-03-15 08:05] VITALS: BP 132/80; BMI 61.5
[2022-04-08] VITALS (7 sets, daily range): BP systolic 135–187; BP diastolic 70–110; PULSE 70–85; RESP 15–20; O2SAT 94–100; BMI 58.1
--- NOTE | 2022-04-08 14:37 | ECG_ITS ---
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 Measurements Intervals [place] Rate: 82 P: 59 MA: 209 QRS: 28 QRSD: 89 T: 37 QT: 350 QTc: 411 Interpretive Statements SINUS RHYTHM Compared to ECG 12/27/2021 17:19:57 No significant changes Electronically Signed On 04-08-2022 15:56:43 ETL INFORMATICA ARCHITECT by Laura Knapp M.D. [email or web address]
--- NOTE | 2022-04-08 14:43 | XRR_ITS ---
PROCEDURE INFORMATION: Exam: XR Chest Exam date and time: 04/08/2022 3:53 PM Age: 41 years old Clinical indication: Pain; Chest pressure; Additional info: Chest pain TECHNIQUE: Imaging protocol: Radiologic exam of the chest. Views: 1 view. COMPARISON: CR XR chest 1V portable [id number] 01/24/2021 6:52 PM FINDINGS: Lungs: Cardiac silhouette size, and vascularity are somewhat accentuated, likely related to poor inspiration/expansion however clinical correlation for mild CHF should be obtained. Upper lungs are clear. Lung bases are suboptimally assessed. Pleural spaces: No pleural effusion. No pneumothorax. Heart/Mediastinum: As above. Bones/joints: No acute osseous findings. Other findings: Single view was submitted. XR/XR chest 1V portable [id number] IMPRESSION: 1. Accentuated cardiac silhouette size and vascularity. See discussion above. 2. No obvious acute consolidation. Suboptimal lung base assessment. Followup including lateral view may be obtained if clinically indicated.
--- NOTE | 2022-04-08 14:45 | W.ED.CHESTPA ---
HPI - Chest Pain General: Chief Complaint: Chest Pain Stated Complaint: CHEST PAIN Time Seen by Provider: 04/08/22 14:31 History of Present Illness: 39-year-old male with a history of hypertension, diabetes, hyperlipidemia and obesity who presents with chest pain. He has been having the pain off and on since yesterday. He had attributed it to eating jalapeno peppers yesterday morning and had tried antacids yesterday with some relief. Today the pain started coming on with exertion. He states he started having pain this morning and its been constant all day. With activity, did become more severe, stating his pain was 8 out of a 10 at its worst today. He states is currently 4 out of 10. He was given 4 baby aspirin by EMS. He tried antacids today without improvement. Patient states he has a history of SVT. No prior history of coronary artery disease. He has had a stress test in the past. No history of DVT or pulmonary emboli. He denies leg pain or leg swelling. Associated symptoms: Reports dyspnea; Deny abdominal pain, fever(s), nausea or vomiting Review of Systems Const: Denies: fever(s) ENMT: Denies: throat pain, ear or mastoid pain, nasal discharge, nasal congestion or sinus pain Card: Reports: chest pain and dyspnea on exertion; Denies: edema, swelling of feet/ankles, orthopnea or leg pain with exertion Resp: Reports: dyspnea; Denies: wheezing GI: Denies: abdominal pain, nausea, vomiting or diarrhea Musc: Denies: extremity pain or extremity swelling Skin/Breast: Reports: other (foot pain. ); Denies: rash Neuro: Denies: headache(s) Psych: Denies: difficulty concentrating PFSH ED PFSH: Medical History Alcohol dependence, in remission Benign essential HTN Binge eating disorder Bipolar disorder, in partial remission, most recent episode manic DJD (degenerative joint disease) Dyspnea on exertion Gallstones GERD (gastroesophageal reflux disease) GI disease Hx MRSA infection Morbid obesity Morbid obesity Nephrolithiasis Nephropathy Obstructive sleep apnea Posttraumatic stress disorder Supraventricular tachycardia Tinea cruris Surgical History H/O oral surgery History of ankle surgery S/P adenoidectomy S/P cholecystectomy S/P hernia repair S/P knee surgery S/P myringotomy with insertion of tube S/P tendon repair S/P vasectomy Family History Other Adopted Social History Smoking and tobacco status: current every day smoker e-cigarettes E-Cigarette Details: vaporizer device and without nicotine Smoking risk assessment/counseling performed?: Yes Tobacco counseling given: counseling >3 minutes Alcohol intake: former Year of sobriety/quit date alcohol: 11mo Adopted: Yes Caregiver/support person: No Lives independently: Yes Household members: spouse Housing: Apartment Marital status: Number of children: 2 Highest education level completed: Some College, No Degree service: Yes status: Medically Discharged/Retired branch: [employer] Current occupational status: disabled Pets and animals: Yes Pets & animals: dog(s) History of recent travel: No Leisure activites: games Sexually active: Yes Current gender identity: Male Leda/Lutheran: None Special leda needs: No Agree to transfusion: Yes Financial difficulty paying for basics: Not Very Hard Physical Exam Const: COMMON NORMALS: no acute distress, patient oriented x3 and alert OTHER: Patient is obese HENMT: COMMON NORMALS: normocephalic, atraumatic, external ears normal, Normal nasal mucous membranes and turbinates present and moist oral mucous membranes HEAD & SCALP: normocephalic and atraumatic NOSE: Normal nasal mucous membranes and turbinates present EXTERNAL EAR: Yes external ears normal Eye: COMMON NORMALS: Equal, round and reactive pupils present, EOMs intact bilaterally and conjunctivae normal CONJUNCTIVA: Yes conjunctivae normal PUPIL: Yes Equal, round and reactive pupils present Neck/C-Spine: COMMON NORMALS: full ROM and no JVD Resp: COMMON NORMALS: normal respiratory effort, No use of accessory muscles and clear to auscultation bilaterally AUSCULTATION: clear to auscultation bilaterally Cardio: COMMON NORMALS: no JVD, regular rate, regular rhythm, S1 normal heart sound present and S2 normal heart sound present RATE: regular rate RHYTHM: regular rhythm HEART SOUNDS: S1 normal heart sound present and S2 normal heart sound present GI: COMMON NORMALS: Normal to inspection, nondistended, normoactive bowel sounds present, Soft to palpation and non-tender PALPATION: Yes Soft to palpation Extremity: GENERAL: No calf tenderness and No edema OTHER: Negative Homans bilaterally Neuro: COMMON NORMALS: patient oriented x3 SENSORIUM/ORIENTATION: Yes alert Skin: COMMON NORMALS: no rashes or lesions noted GENERAL SKIN EXAM: no rashes or lesions noted Course ED course: Patient's been evaluated in the emergency department. He presents with chest pain. He does have associated hypertension with slightly elevated blood pressure readings here. He has had serial EKGs as well as serial troponins both of which remain unremarkable. His EKG he has no acute ischemic changes. Repeat EKG remains unchanged. His first troponin was 6, repeat troponin remains unchanged at 6. His D-dimer was negative. Chest x-ray is unremarkable other than cardiomegaly which is unchanged from prior. Pain was 2 out of 10, relieved with nitro. He does have persistently slightly elevated blood pressure readings, systolics 140s to 180s, diastolics in the 90s to 100s. With normal EKGs and negative troponins, I do not feel the patient needs emergent admission. He has stress test about a year ago which was unremarkable. I have instructed the patient he needs to check his blood pressure daily and record those values. He needs to continue on a baby aspirin daily. Have instructed him to follow-up with his primary care doctor this week for blood pressure evaluation and to get set up for an outpatient stress test. Has been instructed to return to the ER if his blood pressure remains persistently high or if his chest pain returns and worsens and persists. Vital Signs: Vital signs: Vital Signs Pulse Rate 70 04/08/22 18:29 Respiratory Rate 20 H 04/08/22 18:29 Blood Pressure 144/96 04/08/22 18:29 Pulse Oximetry 100 04/08/22 18:29 Oxygen Delivery Me thod 04/08/22 15:09 MDM - Chest Pain Medical Decision Making -year-old male with a history of hypertension, diabetes, hyperlipidemia and obesity who presents with chest pain. He has been having exertional chest pain but constant all day today. EKG appears normal. We will obtain a chest x-ray and serial troponins. We will give the patient nitroglycerin in the ER to see if it helps. He is already been given aspirin per EMS. We will also obtain a D-dimer. [place] includes acid reflux, cardiac ischemia, PE, chest wall pain, pancreatitis. Lab Data : 04/08/22 14:44 04/08/22 14:44 Radiology Impressions Chest X-Ray 04/08/22 14:43 IMPRESSION: 1. Accentuated cardiac silhouette size and vascularity. See discussion above. 2. No obvious acute consolidation. Suboptimal lung base assessment. Followup including lateral view may be obtained if clinically indicated. Laboratory Results WBC 9.0 10^3/uL (4.0-10.0) 04/08/22 14:44 RBC 5.74 10^6/uL (4.1-5.3) H 04/08/22 14:44 Hgb 15.1 g/dL (11.7-16.6) 04/08/22 14:44 Hct 46.1 % (42.0-52.0) 04/08/22 14:44 MCV 80.3 fl (80-94) 04/08/22 14:44 MCH 26.3 pg (28.0-34.0) L 04/08/22 14:44 MCHC 32.8 g/dL (30.0-36.0) 04/08/22 14:44 RDW 13.1 % (12.1-15.1) 04/08/22 14:44 Plt Count 333 10^3/cmm (130-400) 04/08/22 14:44 MPV 9.7 fL (7.4-10.4) 04/08/22 14:44 Neut % (Auto) 54.8 % 04/08/22 14:44 Lymph % (Auto) 32.9 % 04/08/22 14:44 [place] % (Auto) 7.4 % 04/08/22 14:44 Eos % (Auto) 3.3 % 04/08/22 14:44 Baso % (Auto) 1.2 % 04/08/22 14:44 Neut # (Auto) 4.90 10^3/uL (1.8-7.7) 04/08/22 14:44 Lymph # (Auto) 3.0 10^3/uL (0.8-4.8) 04/08/22 14:44 [place] # (Auto) 0.7 10^3/uL (0.2-0.9) 04/08/22 14:44 Eos # (Auto) 0.3 10^3/uL (0.0-0.8) 04/08/22 14:44 Baso # (Auto) 0.1 10^3/uL (0.0-0.1) 04/08/22 14:44 Nucleated RBC % (auto) 0 % 04/08/22 14:44 Nucleated RBCs # 0.0 /100WBC 04/08/22 14:44 D-Dimer 0.31 ug/mIFEU (0-0.59) 04/08/22 14:44 Sodium 133 mmol/L (136-145) L 04/08/22 14:44 Potassium 4.1 mmol/L (3.5-5.1) 04/08/22 14:44 Chloride 97 mmol/L (98-107) L 04/08/22 14:44 Carbon Dioxide 26 mmol/L (22-29) 04/08/22 14:44 Anion Gap 14.1 (5-19) 04/08/22 14:44 BUN 8 mg/dL (6-20) 04/08/22 14:44 Creatinine 0.7 mg/dL (0.7-1.2) 04/08/22 14:44 GFR Calculation 123.7 mL/min (90-130) 04/08/22 14:44 Glucose 274 mg/dL (65-115) H 04/08/22 14:44 Calculated Osmolality 284 mOsm/kg (285-295) L 04/08/22 14:44 Calcium 9.2 mg/dL (8.5-10.5) 04/08/22 14:44 Total Bilirubin 0.3 mg/dL (0.15-1.2) 04/08/22 14:44 AST 23 U/L (0-40) 04/08/22 14:44 ALT 43 U/L (0-41) H 04/08/22 14:44 Alkaline Phosphatase 113 U/L (40-130) 04/08/22 14:44 Troponin T Baseline 6 ng/L (0-15) 04/08/22 14:44 Troponin T 120 Minute 6.00 ng/L (0-15) 04/08/22 18:17 NT-Pro-B Natriuret Pep 27 pg/mL (0-125) 04/08/22 14:44 Total Protein 7.1 g/dL (6.6-8.7) 04/08/22 14:44 Albumin 4.3 g/dL (3.5-5.2) 04/08/22 14:44 Globulin 2.8 g/dL (1.3-4.6) 04/08/22 14:44 Lipase 36 U/L (13-60) 04/08/22 14:44 Digoxin < 0.3 ng/mL (0.6-1.2) L 04/08/22 14:44 EKG Data EKG 1: EKG interpretation date: 04/08/22 EKG interpretation time: 14:53 Interpretation: Normal sinus rhythm, normal axis, normal intervals, no acute ST or T wave changes EKG 2: EKG interpretation date: 04/08/22 EKG interpretation time: 16:53 Interpretation: Normal sinus rhythm, first-degree AV block, no ST or T wave changes Discharge Plan Discharge Patient Disposition: Home Clinical Impression: Chest pain, Benign essential HTN Condition: Stable Prescriptions: No Action (DME) Custom Molded Orthotics See Rx Instructions .Route .MEDSUPPLY Qty: 1 0RF Rx Instructions: As directed J P & O Lantus Solostar U-100 Insulin 100 unit/mL (3 mL) insulin pen 78 unit SUBCUT BID Qty: 15 3RF Rx Instructions: Inject 78 units twice a day. tizanidine 4 mg capsule 4 mg PO BID PRN (Reason: muscle spasticity) 7 Days Qty: 7 0RF digoxin 125 mcg (0.125 mg) tablet 125 mcg PO QAM pantoprazole 20 mg tablet,delayed release (DR/EC) 20 mg PO DAILY (DME) Diabetic shoes with 3 sets of insoles See Rx Instructions .Route .MEDSUPPLY Qty: 1 0RF Rx Instructions: As directed by SHELLI&O isosorbide mononitrate 60 mg tablet extended release 24 hr 60 mg PO DAILY Qty: 90 3RF metformin 1,000 mg tablet 1,000 mg PO BID Qty: 180 0RF Rx Instructions: Take one tablet by mouth twice a day. insulin aspart U-100 [Novolog Flexpen U-100 Insulin] 100 unit/mL (3 mL) insulin pen 10 unit SUBCUT TID Qty: 15 3RF Rx Instructions: Administer 10 units subcut three times a day before meals. Victoza 2-Henri 0.6 mg/0.1 mL (18 mg/3 mL) pen injector 1.8 mg SUBCUT QAM Qty: 9 3RF lisinopril 40 mg Tablet 40 mg PO QAM aspirin 81 mg Tablet,Delayed Release (Dr/Ec) 81 mg PO QAM metoprolol tartrate 50 mg tablet 100 mg PO BID cetirizine 10 mg tablet 10 mg PO BID PRN (Reason: dizziness) Qty: 60 0RF Flonase Allergy Relief 50 mcg/actuation spray,suspension 1 spray intranasal BID PRN (Reason: Nasal Congestion) Rx Instructions: administer into each nostril atorvastatin 20 mg Tablet 20 mg PO QPM albuterol sulfate 90 mcg/actuation Hfa Aerosol Inhaler 2 puff INHALATION Q6H PRN (Reason: Shortness Of Breath) cholecalciferol (vitamin D3) [Vitamin D3] 25 mcg (1,000 unit) Tablet 25 mcg PO DAILY lidocaine 5 % adhesive patch,medicated 1 patch topical DAILY PRN (Reason: pain) 30 Days Qty: 30 0RF Rx Instructions: leave on most painful area for up to 12 hrs Discharge Orders: Discharge ED (Routine); Ordered 04/08/22 Ordered By: Janette Avina Referrals: Toña Ivey FNP [Primary Care Provider] - Discharge Diet: Advance as tolerated Discharge Activity: Resume usual activity Patient Instructions: Chest Pain (ED), Opioid Safety, Pain Management Activity Restrictions/Additional Instructions: Continue current medications. Check your blood pressure and keep a record of his values all your blood pressure was slightly elevated here. If you are having persistently elevated blood pressure readings, you need to follow-up with your primary care doctor to have adjustments in her blood pressure medications. Take a baby aspirin daily. If you have worsening chest pain, return to the ER. Follow-up with your primary care doctor to get set up for stress test as an outpatient. Coding Level of Care Code ED Shipping Point Inspector for Christin Chang Exam Comprehensive
[2022-04-08 14:55] LABS: Basophils # 0.1 10^3/uL (0.0-0.1); Basophils % 1.2 %; Eosinophils # 0.3 10^3/uL (0.0-0.8); Eosinophils % 3.3 %; Hematocrit 46.1 % (42.0-52.0); Hemoglobin 15.1 g/dL (11.7-16.6); Lymphocytes % 32.9 %; Mean Corpuscular HGB Conc 32.8 g/dL (30.0-36.0); Mean Corpuscular Hemoglobin 26.3 pg (28.0-34.0); Mean Corpuscular Volume 80.3 fl (80-94); Mean Platelet Volume 9.7 fL (7.4-10.4); Monocytes # 0.7 10^3/uL (0.2-0.9); Monocytes % 7.4 %; Neutrophils % 54.8 %; Nucleated Red Blood Cells % 0 %; Platelet Count 333 10^3/cmm (130-400); Red Blood Count 5.74 10^6/uL (4.1-5.3); Red Cell Distribution Width 13.1 % (12.1-15.1)
--- NOTE | 2022-04-08 15:00 | PC.NURSE ---
PT PLACED ON CONTINUOUS NIBP, SPO2, AND CM
[2022-04-08] MEDS: nitroglycerin 0.4 mg sublingual Tablet SUBLINGUAL (15:12)
[2022-04-08 15:13] LABS: D Dimer 0.31 ug/mIFEU (0-0.59)
[2022-04-08 15:25] LABS: Troponin(5th) Baseline 6 ng/L (0-15)
[2022-04-08 15:36] LABS: Digoxin < 0.3 ng/mL (0.6-1.2)
[2022-04-08 15:41] LABS: Alanine Aminotransferase 43 U/L (0-41); Albumin Level 4.3 g/dL (3.5-5.2); Alkaline Phosphatase 113 U/L (40-130); Anion Gap 14.1 (5-19); Aspartate Amino Transferase 23 U/L (0-40); Blood Urea Nitrogen 8 mg/dL (6-20); Calcium 9.2 mg/dL (8.5-10.5); Carbon Dioxide 26 mmol/L (22-29); Chloride 97 mmol/L (98-107); Globulin 2.8 g/dL (1.3-4.6); Glomerular Filtration Rate 123.7 mL/min (90-130); Glucose 274 mg/dL (65-115); Lipase 36 U/L (13-60); NT Pro B Type Natriuretic Pept 27 pg/mL (0-125); Osmolality Calculated 284 mOsm/kg (285-295); Potassium 4.1 mmol/L (3.5-5.1); Sodium 133 mmol/L (136-145); Total Bilirubin 0.3 mg/dL (0.15-1.2); Total Protein 7.1 g/dL (6.6-8.7)
--- NOTE | 2022-04-08 16:44 | ECG_ITS ---
[facility] Test Date: 2022-04-08 Pat Name: Tyree Buckley Department: Room: Gender: Male Band Tumbler: : 1980 Requested By: Janette Avina Order Number: [id number] Mirza MD: Laura Knapp M.D. Measurements Intervals [place] Rate: 71 P: 54 AL: 227 QRS: 18 QRSD: 80 T: 13 QT: 372 QTc: 405 Interpretive Statements SINUS RHYTHM WITH FIRST DEGREE AV BLOCK Compared to ECG 04/08/2022 14:37:12 First degree AV block now present Electronically Signed On 04-10-2022 12:14:42 ASSOCIATE DATA SCIENTIST by Laura Knapp M.D. [id number]
[2022-04-08 19:02] LABS: Troponin 5 2HR Delta 0 ABS# (0-10)
== END 2022-04-08 19:01 | disposition home or self-care (01) ==
PROVIDERS: Emergency Provider Emergency Medicine; PCP Nurse Practitioner Family
DX: I10 Essential (primary) hypertension (principal); E11.9 Type 2 diabetes mellitus without complications; E78.5 Hyperlipidemia, unspecified; Z68.43 Body mass index [BMI] 50.0-59.9, adult; E66.01 Morbid (severe) obesity due to excess calories; F17.290 Nicotine dependence, other tobacco product, uncomplicated; Z79.4 Long term (current) use of insulin; Z79.84 Long term (current) use of oral hypoglycemic drugs; Z79.82 Long term (current) use of aspirin
CPT/HCPCS: 71045; 80053; 80162; 83690; 83880; 84484; 85025; 85378; 93005; 99285

== ENCOUNTER → 2022-04-24 15:14 | Outpatient (BNVA) | payer OTHER, MEDICAID, SELFPAY ==
[2022-03-15 08:05] VITALS: BP 132/80; BMI 61.5
== END ==
PROVIDERS: PCP Nurse Practitioner Family; Referring Provider Family Medicine; Visit Provider Orthopaedic Surgery
DX: M19.011 Primary osteoarthritis, right shoulder (principal)
CPT/HCPCS: 73030; 99213

== ENCOUNTER → 2022-05-08 09:29 | Outpatient (BNVA) | payer OTHER, SELFPAY ==
[2022-03-15 08:05] VITALS: BP 132/80; BMI 61.5
== END ==
PROVIDERS: PCP Nurse Practitioner Family; Visit Provider Podiatrist Foot & Ankle Surgery
DX: E11.42 Type 2 diabetes mellitus with diabetic polyneuropathy (principal); L60.3 Nail dystrophy; M21.41 Flat foot [pes planus] (acquired), right foot; M21.42 Flat foot [pes planus] (acquired), left foot; S90.31XA Contusion of right foot, initial encounter; Z79.84 Long term (current) use of oral hypoglycemic drugs; Z79.4 Long term (current) use of insulin; W21.07XA Struck by softball, initial encounter
CPT/HCPCS: 11721; 73630; 99214

== ENCOUNTER → 2022-05-14 08:38 | Outpatient (BNVA) | payer OTHER, SELFPAY ==
[2022-03-15 08:05] VITALS: BP 132/80; BMI 61.5
== END ==
PROVIDERS: PCP Nurse Practitioner Family; Visit Provider Podiatrist Foot & Ankle Surgery
DX: E11.42 Type 2 diabetes mellitus with diabetic polyneuropathy (principal); Z79.4 Long term (current) use of insulin; L60.3 Nail dystrophy; M21.41 Flat foot [pes planus] (acquired), right foot; M21.42 Flat foot [pes planus] (acquired), left foot; S90.31XA Contusion of right foot, initial encounter; M84.374A Stress fracture, right foot, initial encounter for fracture; Z79.84 Long term (current) use of oral hypoglycemic drugs; W21.07XA Struck by softball, initial encounter
CPT/HCPCS: 73600; 73630

== ENCOUNTER 2022-05-14 14:00 | Outpatient (CLI) | payer OTHER, SELFPAY ==
[2022-03-15 08:05] VITALS: BP 132/80; BMI 61.5
== END 2022-05-14 14:01 | disposition home or self-care (01) ==
LOC: SPT 14:02
PROVIDERS: PCP Nurse Practitioner Family; Visit Provider Podiatrist Foot & Ankle Surgery
DX: E11.42 Type 2 diabetes mellitus with diabetic polyneuropathy (principal); Z46.89 Encounter for fitting and adjustment of other specified devices; M25.571 Pain in right ankle and joints of right foot; L60.3 Nail dystrophy; M21.41 Flat foot [pes planus] (acquired), right foot; M21.42 Flat foot [pes planus] (acquired), left foot
CPT/HCPCS: 11721; 97760; 99213; L4361

== ENCOUNTER → 2022-05-21 09:17 | Outpatient (BNVA) | payer OTHER, SELFPAY ==
[2022-03-15 08:05] VITALS: BP 132/80; BMI 61.5
== END ==
PROVIDERS: PCP Nurse Practitioner Family; Visit Provider Podiatrist Foot & Ankle Surgery
DX: E11.42 Type 2 diabetes mellitus with diabetic polyneuropathy (principal); M84.374A Stress fracture, right foot, initial encounter for fracture; W21.03XA Struck by baseball, initial encounter; L60.3 Nail dystrophy; M21.41 Flat foot [pes planus] (acquired), right foot; M21.42 Flat foot [pes planus] (acquired), left foot; Z79.4 Long term (current) use of insulin; Z79.84 Long term (current) use of oral hypoglycemic drugs; S90.31XA Contusion of right foot, initial encounter
CPT/HCPCS: 11721; 73630; 99213

== ENCOUNTER → 2022-05-22 09:10 | Outpatient (BNVA) | payer OTHER, SELFPAY ==
[2022-03-15 08:05] VITALS: BP 132/80; BMI 61.5
== END ==
PROVIDERS: PCP Nurse Practitioner Family; Visit Provider Student in an Organized Health Care Education/Training Program
DX: M65.4 Radial styloid tenosynovitis [de Quervain] (principal); M24.831 Other specific joint derangements of right wrist, not elsewhere classified
CPT/HCPCS: 20610; 73110; 99204

== ENCOUNTER → 2022-06-05 09:43 | Outpatient (BNVA) | payer MEDICAID, SELFPAY ==
[2022-03-15 08:05] VITALS: BP 132/80; BMI 61.5
== END ==
PROVIDERS: PCP Nurse Practitioner Family; Visit Provider Podiatrist Foot & Ankle Surgery
DX: E11.42 Type 2 diabetes mellitus with diabetic polyneuropathy (principal); L60.3 Nail dystrophy; M21.41 Flat foot [pes planus] (acquired), right foot; M21.42 Flat foot [pes planus] (acquired), left foot; M84.374A Stress fracture, right foot, initial encounter for fracture; Z79.84 Long term (current) use of oral hypoglycemic drugs; S90.31XA Contusion of right foot, initial encounter; X58.XXXA Exposure to other specified factors, initial encounter; Z79.4 Long term (current) use of insulin
CPT/HCPCS: 73630; 99214

== ENCOUNTER 2022-06-07 11:53 | Outpatient (CLI) | payer MEDICAID, SELFPAY ==
[2022-03-15 08:05] VITALS: BP 132/80; BMI 61.5
--- NOTE | 2022-06-07 12:12 | XRR_ITS ---
PROCEDURE INFORMATION: Exam: XR Right Hand Exam date and time: 06/07/2022 12:28 PM Age: 41 years old Clinical indication: Injury or trauma; Other: Laceration; Right; Injury details: Cut 1st digit, taking a chunk out of it and physician wants to make sure that no debri remains. HX tendon repair on pointer finger on RT hand; Prior surgery; Additional info: Pain in R thumb/eval for foreign body or other cause of pain TECHNIQUE: Imaging protocol: Radiologic exam of the Right hand. Views: 1 or 2 views. COMPARISON: CR XR hand RT min 3V* [id number] 02/20/2021 12:30 PM FINDINGS: Bones/joints: No fracture or dislocation. Soft tissues: Normal. No radiopaque foreign body identified. XR/XR hand RT 2V [id number] IMPRESSION: No acute finding.
== END 2022-06-07 11:54 | disposition home or self-care (01) ==
PROVIDERS: PCP Nurse Practitioner Family; Visit Provider Family Medicine
DX: S61.011A Laceration without foreign body of right thumb without damage to nail, initial encounter (principal); W45.8XXA Other foreign body or object entering through skin, initial encounter
CPT/HCPCS: 73120

== ENCOUNTER → 2022-06-18 14:08 | Outpatient (BNVA) | payer MEDICAID, SELFPAY ==
[2022-03-15 08:05] VITALS: BP 132/80; BMI 61.5
== END ==
PROVIDERS: PCP Nurse Practitioner Family; Visit Provider Podiatrist Foot & Ankle Surgery
DX: E11.42 Type 2 diabetes mellitus with diabetic polyneuropathy (principal); L60.3 Nail dystrophy; M21.41 Flat foot [pes planus] (acquired), right foot; M21.42 Flat foot [pes planus] (acquired), left foot; Z79.84 Long term (current) use of oral hypoglycemic drugs; Z79.4 Long term (current) use of insulin
CPT/HCPCS: 99214

== ENCOUNTER 2022-06-23 20:59 | Emergency (ER) | payer OTHER, SELFPAY ==
[2022-03-15 08:05] VITALS: BP 132/80; BMI 61.5
[2022-06-23 21:01] VITALS: BP 169/108; PULSE 92; RESP 18; TEMP 37; O2SAT 97; BMI 60.0
--- NOTE | 2022-06-23 21:24 | ED_ITS ---
HPI - Extremity Problem General: Chief complaint: Extremity Injury, Lower Stated complaint: GLASS IN THE FOOT Time Seen by Provider: 06/23/22 21:07 Source: patient Mode of arrival: ambulatory Limitations: no limitations History of Present Illness: Patient is a 41-year-old male who presents to ED today with a concern that he might have glass in his left foot. Patient states earlier today he broke something on the kitchen floor and in the process of sweeping the glass shards, he believes he stepped on one. MD Complaint: extremity pain Onset (ago): hour(s) Location: left and lower extremity (foot) Radiation: none Exacerbating factors: weight bearing Associated symptoms: Reports no associated symptoms Review of Systems Musc: Reports: extremity pain (L foot); Denies: extremity swelling PFSH ED PFSH: Medical History Alcohol dependence, in remission Benign essential HTN Binge eating disorder Bipolar disorder, in partial remission, most recent episode manic Contusion of right foot Crepitus of joint of right wrist De Quervain's tenosynovitis, right DJD (degenerative joint disease) Dyspnea on exertion Gallstones GERD (gastroesophageal reflux disease) GI disease Hx MRSA infection Morbid obesity Morbid obesity Nephrolithiasis Nephropathy Obstructive sleep apnea Posttraumatic stress disorder Supraventricular tachycardia Tinea cruris Surgical History H/O oral surgery History of ankle surgery S/P adenoidectomy S/P cholecystectomy S/P hernia repair S/P knee surgery S/P myringotomy with insertion of tube S/P tendon repair S/P vasectomy Family History Other Adopted Social History Smoking and tobacco status: current every day smoker e-cigarettes E-Cigarette Details: vaporizer device and without nicotine Smoking risk assessment/counseling performed?: Yes Tobacco counseling given: counseling >3 minutes Alcohol intake: former Year of sobriety/quit date alcohol: 11mo Adopted: Yes Caregiver/support person: No Lives independently: Yes Household members: spouse Housing: Apartment Marital status: Number of children: 2 Highest education level completed: Some College, No Degree service: Yes status: Medically Discharged/Retired branch: [employer] Current occupational status: disabled Pets and animals: Yes Pets & animals: dog(s) History of recent travel: No Leisure activites: games Sexually active: Yes Current gender identity: Male Leda/Caodaism: None Special leda needs: No Agree to transfusion: Yes Financial difficulty paying for basics: Not Very Hard Physical Exam Const: COMMON NORMALS: no acute distress, no limitations and alert NUTRITIONAL APPEARANCE: obese morbidly obese Extremity: GENERAL: Yes normal exam except as noted LEFT LOWER EXTREMITY: Yes foot & digits OTHER: a very small jesus of glass palpated on patient's proximal plantar surface; this was easily expressed manually; will obtain XR to assess for any further retained pieces; no redness, swelling, drainage Neuro: SENSORIUM/ORIENTATION: Yes alert Course Vital Signs: Vital signs: Vital Signs Temperature 98.6 F 06/23/22 21:01 Pulse Rate 92 06/23/22 21:01 Respiratory Rate 18 06/23/22 21:01 Blood Pressure 169/108 06/23/22 21:01 Pulse Oximetry 97 06/23/22 21:01 Oxygen Delivery Me thod 06/23/22 21:01 MDM - Extremity (Nontraumatic) Medical Decision Making Small jesus of glass was easily removed manually-it was not embedded into foot. XR negative. Return to ED precautions given. Lab Data Radiology Impressions Foot X-Ray 06/23/22 21:24 IMPRESSION: No acute findings. No definite foreign body noted. Discharge Plan Discharge Patient Disposition: Home Clinical Impression: Foreign body in left foot Qualifiers: Encounter type: initial encounter Qualified Code(s): S90.852A - Superficial foreign body, left foot, initial encounter Condition: Stable Prescriptions: No Action (DME) Custom Molded Orthotics See Rx Instructions .Route .MEDSUPPLY Qty: 1 0RF Rx Instructions: As directed J P & O Lantus Solostar U-100 Insulin 100 unit/mL (3 mL) insulin pen 78 unit SUBCUT BID Qty: 15 3RF Rx Instructions: Inject 78 units twice a day. tizanidine 4 mg capsule 4 mg PO BID PRN (Reason: muscle spasticity) 7 Days Qty: 7 0RF digoxin 125 mcg (0.125 mg) tablet 125 mcg PO QAM pantoprazole 20 mg tablet,delayed release (DR/EC) 20 mg PO DAILY (DME) Diabetic shoes with 3 sets of insoles See Rx Instructions .Route .MEDSUPPLY Qty: 1 0RF Rx Instructions: As directed by SHELLI&O isosorbide mononitrate 60 mg tablet extended release 24 hr 60 mg PO DAILY Qty: 90 3RF triamcinolone acetonide [Kenalog] 40 mg/mL suspension 40 mg intra-articular ONCE Qty: 1 0RF ropivacaine (PF) 5 mg/mL (0.5 %) solution 5 mg intrathecal ONCE Qty: 0.75 0RF (DME) Cam boot to right See Rx Instructions .Route .MEDSUPPLY Qty: 1 0RF Rx Instructions: As directed (DME) Diabetic High Top Velcro Tennis Shoes with Custom Molded Orthotics See Rx Instructions .Route .MEDSUPPLY Qty: 1 0RF Rx Instructions: As directed HOME metformin 1,000 mg tablet 1,000 mg PO BID Qty: 180 0RF Rx Instructions: Take one tablet by mouth twice a day. insulin aspart U-100 [Novolog FlexPen U-100 Insulin] 100 unit/mL (3 mL) insulin pen 10 unit SUBCUT TID Qty: 15 3RF Rx Instructions: Administer 10 units subcut three times a day before meals. Victoza 2-Henri 0.6 mg/0.1 mL (18 mg/3 mL) pen injector 1.8 mg SUBCUT QAM Qty: 9 3RF lisinopril 40 mg Tablet 40 mg PO QAM aspirin 81 mg Tablet,Delayed Release (Dr/Ec) 81 mg PO QAM metoprolol tartrate 50 mg tablet 100 mg PO BID cetirizine 10 mg tablet 10 mg PO BID PRN (Reason: dizziness) Qty: 60 0RF Flonase Allergy Relief 50 mcg/actuation spray,suspension 1 spray intranasal BID PRN (Reason: Nasal Congestion) Rx Instructions: administer into each nostril atorvastatin 20 mg Tablet 20 mg PO QPM albuterol sulfate 90 mcg/actuation Hfa Aerosol Inhaler 2 puff INHALATION Q6H PRN (Reason: Shortness Of Breath) cholecalciferol (vitamin D3) [Vitamin D3] 25 mcg (1,000 unit) Tablet 25 mcg PO DAILY Discharge Orders: Discharge ED (Routine); Ordered 06/23/22 Ordered By: Stephanie Brewer Referrals: Toña Ivey FNP [Primary Care Provider] - Coding Level of Care Code ED Territory Outside Sales Manager for Christin Chang
--- NOTE | 2022-06-23 21:24 | XRR_ITS ---
PROCEDURE INFORMATION: Exam: XR Left Foot Exam date and time: 06/23/2022 9:30 PM Age: 41 years old Clinical indication: Injury or trauma; Blunt trauma; Left; Injury date: Today; Prior surgery; Surgery date: 6+ months; Surgery type: Ankle surgery; Patient HX: Stepped on glass-was some in ball of foot. They have removed what they see; Additional info: Poss glass in foot TECHNIQUE: Imaging protocol: Radiologic exam of the Left foot. Views: 3 or more views. COMPARISON: No relevant prior studies available. FINDINGS: Bones/joints: Normal. Soft tissues: Normal. XR/XR foot LT min 3V* [id number] IMPRESSION: No acute findings. No definite foreign body noted.
== END 2022-06-23 22:10 | disposition home or self-care (01) ==
PROVIDERS: Emergency Provider Physician Assistant; PCP Nurse Practitioner Family
DX: S90.852A Superficial foreign body, left foot, initial encounter (principal); W22.8XXA Striking against or struck by other objects, initial encounter; Z79.4 Long term (current) use of insulin; Z79.82 Long term (current) use of aspirin; F17.290 Nicotine dependence, other tobacco product, uncomplicated; I10 Essential (primary) hypertension
CPT/HCPCS: 73630; 99283

== ENCOUNTER → 2022-06-25 15:07 | Outpatient (BNVA) | payer OTHER, SELFPAY ==
[2022-03-15 08:05] VITALS: BP 132/80; BMI 61.5
== END ==
PROVIDERS: PCP Family Medicine; Visit Provider Nurse Practitioner Family
DX: I10 Essential (primary) hypertension (principal); I47.1 Supraventricular tachycardia; R07.89 Other chest pain
CPT/HCPCS: 99214

== ENCOUNTER → 2022-07-05 10:05 | Outpatient (BNVA) | payer MEDICAID, SELFPAY ==
[2022-03-15 08:05] VITALS: BP 132/80; BMI 61.5
== END ==
PROVIDERS: PCP Family Medicine; Visit Provider Student in an Organized Health Care Education/Training Program
DX: M65.4 Radial styloid tenosynovitis [de Quervain] (principal); M24.831 Other specific joint derangements of right wrist, not elsewhere classified
CPT/HCPCS: 99213

== ENCOUNTER → 2022-07-11 14:44 | Outpatient (BNVA) | payer MEDICAID, SELFPAY ==
[2022-03-15 08:05] VITALS: BP 132/80; BMI 61.5
== END ==
PROVIDERS: PCP Family Medicine; Visit Provider Thoracic Surgery (Cardiothoracic Vascular Surgery)
DX: S61.216D Laceration without foreign body of right little finger without damage to nail, subsequent encounter (principal); X58.XXXD Exposure to other specified factors, subsequent encounter
CPT/HCPCS: 10060; 99213

== ENCOUNTER → 2022-08-21 13:08 | Outpatient (BNVA) | payer MEDICAID, SELFPAY ==
[2022-03-15 08:05] VITALS: BP 132/80; BMI 61.5
== END ==
PROVIDERS: PCP Family Medicine; Visit Provider Orthopaedic Surgery
DX: M25.511 Pain in right shoulder (principal); E11.42 Type 2 diabetes mellitus with diabetic polyneuropathy; L60.3 Nail dystrophy; M21.41 Flat foot [pes planus] (acquired), right foot; M21.42 Flat foot [pes planus] (acquired), left foot
CPT/HCPCS: 11721; 99213

== ENCOUNTER 2022-09-07 06:00 | Outpatient (RCR) | payer OTHER, SELFPAY ==
[2022-03-15 08:05] VITALS: BP 132/80; BMI 61.5
== END 2022-09-30 23:59 | disposition home or self-care (01) ==
LOC: SPT 06:00
PROVIDERS: Visit Provider Orthopaedic Surgery
DX: M25.511 Pain in right shoulder (principal)
CPT/HCPCS: 97110; 97161

== ENCOUNTER 2022-09-13 14:35 | Outpatient (CLI) | payer MEDICAID, SELFPAY ==
[2022-03-15 08:05] VITALS: BP 132/80; BMI 61.5
== END 2022-09-13 14:36 | disposition home or self-care (01) ==
LOC: SPT 14:36
PROVIDERS: Visit Provider Student in an Organized Health Care Education/Training Program
DX: Z46.89 Encounter for fitting and adjustment of other specified devices (principal); M25.531 Pain in right wrist
CPT/HCPCS: 97760; 99213; L3908

== ENCOUNTER 2022-09-27 08:09 | Outpatient (CLI) | payer OTHER, SELFPAY ==
[2022-03-15 08:05] VITALS: BP 132/80; BMI 61.5
--- NOTE | 2022-09-27 08:45 | MR_ITS ---
WS: [id number] MRI RIGHT WRIST without CONTRAST. COMPARISON: None Multiplanar, multisequence imaging is performed without contrast. History: Prior wrist fracture 1998. Now with pain sensation and popping. No marrow edema or fracture. Normal carpal alignment. No osteochondral lesions. Marker is placed jessenia g the dorsal surface of the hand at the level of the proximal second metacarpal. There is no underlyi ng abnormality. There is a very small amount of fluid near the distal radial ulnar joint. There is also narrowing and small osteophyte involving the distal radial ulnar joint. Increased signal towards the ulnar portion of the TFCC. This is predominantly intrasubstance and suspect there is a tear especially correlating with the small amount of fluid in the distal radial ulnar joint. The flexion-extension tendons appear normal. No loose bodies are identified. MR/MR wrist RT wo con* [id number] IMPRESSION: 1. No fractures or marrow edema or displacement. No loose bodies. 2. Abnormal signal in the TFCC. Highly suspicious for tear especially towards the ulnar styloid portion of the complex. There is a small amount of fluid in t he distal radioulnar joint along with arthritis.
== END 2022-09-27 08:10 | disposition home or self-care (01) ==
PROVIDERS: Visit Provider Student in an Organized Health Care Education/Training Program
DX: M24.831 Other specific joint derangements of right wrist, not elsewhere classified (principal)
CPT/HCPCS: 73221

== ENCOUNTER 2022-10-01 06:00 | Outpatient (RCR) | payer OTHER, SELFPAY ==
[2022-03-15 08:05] VITALS: BP 132/80; BMI 61.5
== END 2022-10-31 23:59 | disposition home or self-care (01) ==
LOC: SPT 06:00
PROVIDERS: Visit Provider Orthopaedic Surgery
DX: M25.511 Pain in right shoulder (principal)
CPT/HCPCS: 97110

== ENCOUNTER → 2022-10-03 09:36 | Outpatient (BNVA) | payer MEDICAID, SELFPAY ==
[2022-03-15 08:05] VITALS: BP 132/80; BMI 61.5
== END ==
PROVIDERS: Visit Provider Nurse Practitioner Family
DX: M24.831 Other specific joint derangements of right wrist, not elsewhere classified (principal); E66.01 Morbid (severe) obesity due to excess calories; Z68.43 Body mass index [BMI] 50.0-59.9, adult
CPT/HCPCS: 99213

== ENCOUNTER → 2022-10-15 09:57 | Outpatient (BNVA) | payer MEDICAID, SELFPAY ==
[2022-03-15 08:05] VITALS: BP 132/80; BMI 61.5
== END ==
PROVIDERS: Visit Provider Student in an Organized Health Care Education/Training Program
DX: S63.591A Other specified sprain of right wrist, initial encounter (principal); X58.XXXA Exposure to other specified factors, initial encounter; M24.831 Other specific joint derangements of right wrist, not elsewhere classified
CPT/HCPCS: 99213

== ENCOUNTER 2022-11-03 12:54 | Emergency (ER) | payer OTHER, SELFPAY ==
[2022-03-15 08:05] VITALS: BP 132/80; BMI 61.5
[2022-11-03 12:55] VITALS: BP 132/71; PULSE 65; RESP 18; TEMP 36.9; O2SAT 97
[2022-11-03 13:05] LABS: Glucose Point of Care 162 mg/dL (70-110)
--- NOTE | 2022-11-03 13:22 | W.ED.WEAKNES ---
HPI - Weakness General: Chief complaint: Weakness Stated complaint: WEAKNESS Time Seen by Provider: 11/03/22 12:57 Source: patient and EMS Mode of arrival: EMS Limitations: no limitations History of Present Illness: 42-year-old male states that he has a long history of diabetes he states that he is feeling slightly fatigued this morning states blood sugar was in the 80s that is very atypical for him. He did eat at 162 down he has no other complaints denies any fever denies any pain anywhere. Associated symptoms: Denies chest pain, chills, dysuria, fever(s), headache(s), nausea or vomiting Review of Systems Const: Reports: fatigue and malaise; Denies: fever(s) or chills ENMT: Denies: throat pain or dental pain Card: Denies: chest pain Resp: Denies: dyspnea GI: Denies: abdominal pain, nausea, vomiting or diarrhea : Denies: dysuria Musc: Denies: neck pain or back pain Skin/Breast: Denies: rash Neuro: Denies: headache(s) PFSH ED PFSH: Medical History Alcohol dependence, in remission Benign essential HTN Binge eating disorder Bipolar disorder, in partial remission, most recent episode manic Contusion of right foot Crepitus of joint of right wrist De Quervain's tenosynovitis, right DJD (degenerative joint disease) Dyspnea on exertion Gallstones GERD (gastroesophageal reflux disease) GI disease Hx MRSA infection Morbid obesity Morbid obesity Nephrolithiasis Nephropathy Obstructive sleep apnea Posttraumatic stress disorder Supraventricular tachycardia Tinea cruris Surgical History H/O oral surgery History of ankle surgery S/P adenoidectomy S/P cholecystectomy S/P hernia repair S/P knee surgery S/P myringotomy with insertion of tube S/P tendon repair S/P vasectomy Family History Other Adopted Social History Smoking and tobacco status: current every day smoker e-cigarettes E-Cigarette Details: vaporizer device and without nicotine Smoking risk assessment/counseling performed?: Yes Tobacco counseling given: counseling >3 minutes Alcohol intake: former Year of sobriety/quit date alcohol: 11mo Substance/Drug Use: current Other substance/drug use details: CBD Adopted: Yes Caregiver/support person: No Lives independently: Yes Household members: spouse Housing: Apartment Marital status: Number of children: 2 Highest education level completed: Some College, No Degree service: Yes status: Medically Discharged/Retired branch: [employer] Current occupational status: disabled Pets and animals: Yes Pets & animals: dog(s) Leisure activites: games Sexually active: Yes Do you think of yourself as: Straight/Heterosexual Current gender identity: Male Leda/Scientology: None Special leda needs: No Agree to transfusion: Yes Financial difficulty paying for basics: Not Very Hard Physical Exam Const: COMMON NORMALS: no acute distress, average body habitus and patient oriented x3 HENMT: COMMON NORMALS: normocephalic and atraumatic HEAD & SCALP: normocephalic and atraumatic Eye: COMMON NORMALS: Equal, round and reactive pupils present PUPIL: Yes Equal, round and reactive pupils present Neck/C-Spine: COMMON NORMALS: full ROM Chest: COMMONS NORMALS: normal inspection of the chest Resp: COMMON NORMALS: normal respiratory effort Cardio: COMMON NORMALS: regular rate and regular rhythm RATE: regular rate RHYTHM: regular rhythm GI: INSPECTION: Yes normal to inspection Extremity: COMMON NORMALS: normal to inspection Neuro: COMMON NORMALS: patient oriented x3 Psych: COMMON NORMALS: mental status grossly normal Course Vital Signs: Vital signs: Vital Signs Temperature 98.4 F 11/03/22 12:55 Pulse Rate 66 11/03/22 13:36 Respiratory Rate 18 11/03/22 12:55 Blood Pressure 144/72 11/03/22 13:36 Pulse Oximetry 97 11/03/22 13:36 Oxygen Delivery Me thod Room Air 11/03/22 13:36 MDM - Weakness Medical Decision Making Patient presents here with some mild hypoglycemia at home his blood sugars here have been normal he feels improved blood work is normal he is stable for discharge she is to follow-up with PCP and return if worsening. No critically low episodes. Medical Records I reviewed the patient's medical records. Lab Data I reviewed the patient's lab results. 11/03/22 13:12 11/03/22 13:12 Laboratory Results WBC 7.4 10^3/uL (4.0-10.0) 11/03/22 13:12 RBC 6.01 10^6/uL (4.1-5.3) H 11/03/22 13:12 Hgb 15.7 g/dL (11.7-16.6) 11/03/22 13:12 Hct 48.4 % (42.0-52.0) 11/03/22 13:12 MCV 80.5 fl (80-94) 11/03/22 13:12 MCH 26.1 pg (28.0-34.0) L 11/03/22 13:12 MCHC 32.4 g/dL (30.0-36.0) 11/03/22 13:12 RDW 13.2 % (12.1-15.1) 11/03/22 13:12 Plt Count 269 10^3/cmm (130-400) 11/03/22 13:12 MPV 9.7 fL (7.4-10.4) 11/03/22 13:12 Neut % (Auto) 58.3 % 11/03/22 13:12 Lymph % (Auto) 30.0 % 11/03/22 13:12 Lanier % (Auto) 7.2 % 11/03/22 13:12 Eos % (Auto) 3.2 % 11/03/22 13:12 Baso % (Auto) 0.9 % 11/03/22 13:12 Neut # (Auto) 4.31 10^3/uL (1.8-7.7) 11/03/22 13:12 Lymph # (Auto) 2.2 10^3/uL (0.8-4.8) 11/03/22 13:12 Lanier # (Auto) 0.5 10^3/uL (0.2-0.9) 11/03/22 13:12 Eos # (Auto) 0.2 10^3/uL (0.0-0.8) 11/03/22 13:12 Baso # (Auto) 0.1 10^3/uL (0.0-0.1) 11/03/22 13:12 Nucleated RBC % (auto) 0 % 11/03/22 13:12 Nucleated RBCs # 0.0 /100WBC 11/03/22 13:12 Sodium 139 mmol/L (136-145) 11/03/22 13:12 Potassium 3.7 mmol/L (3.5-5.1) 11/03/22 13:12 Chloride 100 mmol/L (98-107) 11/03/22 13:12 Carbon Dioxide 28 mmol/L (22-29) 11/03/22 13:12 Anion Gap 14.7 (5-19) 11/03/22 13:12 BUN 11 mg/dL (6-20) 11/03/22 13:12 Creatinine 0.6 mg/dL (0.7-1.2) L 11/03/22 13:12 GFR Calculation 147.0 mL/min (90-130) H 11/03/22 13:12 Glucose 153 mg/dL (65-115) H 11/03/22 13:12 POC Glucose 162 mg/dL (70-110) H 11/03/22 13:01 Calculated Osmolality 290 mOsm/kg (285-295) 11/03/22 13:12 Calcium 8.9 mg/dL (8.5-10.5) 11/03/22 13:12 Total Bilirubin 0.6 mg/dL (0.15-1.2) 11/03/22 13:12 AST 26 U/L (0-40) 11/03/22 13:12 ALT 39 U/L (0-41) 11/03/22 13:12 Alkaline Phosphatase 79 U/L (40-130) 11/03/22 13:12 Total Protein 6.8 g/dL (6.6-8.7) 11/03/22 13:12 Albumin 4.1 g/dL (3.5-5.2) 11/03/22 13:12 Globulin 2.7 g/dL (1.3-4.6) 11/03/22 13:12 Discharge Plan Discharge Patient Disposition: Home Clinical Impression: Weakness, Hypoglycemia Condition: Stable Prescriptions: No Action (DME) Custom Molded Orthotics See Rx Instructions .Route .MEDSUPPLY Qty: 1 0RF Rx Instructions: As directed J P & O Lantus Solostar U-100 Insulin 100 unit/mL (3 mL) insulin pen 78 unit SUBCUT BID Qty: 15 3RF Rx Instructions: Inject 78 units twice a day. tizanidine 4 mg capsule 4 mg PO BID PRN (Reason: muscle spasticity) 7 Days Qty: 7 0RF digoxin 125 mcg (0.125 mg) tablet 125 mcg PO QAM pantoprazole 20 mg tablet,delayed release (DR/EC) 20 mg PO DAILY (DME) Diabetic shoes with 3 sets of insoles See Rx Instructions .Route .MEDSUPPLY Qty: 1 0RF Rx Instructions: As directed by SHELLI&O isosorbide mononitrate 60 mg tablet extended release 24 hr 60 mg PO DAILY Qty: 90 3RF hydralazine 25 mg tablet 25 mg PO BID amlodipine 10 mg tablet 10 mg PO DAILY Jardiance 25 mg tablet 25 mg PO DAILY (DME) Cam boot to right See Rx Instructions .Route .MEDSUPPLY Qty: 1 0RF Rx Instructions: As directed (DME) Diabetic High Top Velcro Tennis Shoes with Custom Molded Orthotics See Rx Instructions .Route .MEDSUPPLY Qty: 1 0RF Rx Instructions: As directed HOME (DME) cock up wrist splint See Rx Instructions .Route .MEDSUPPLY Qty: 1 0RF Rx Instructions: As directed metformin 1,000 mg tablet 1,000 mg PO BID Qty: 180 0RF Rx Instructions: Take one tablet by mouth twice a day. insulin aspart U-100 [Novolog FlexPen U-100 Insulin] 100 unit/mL (3 mL) insulin pen 10 unit SUBCUT TID Qty: 15 3RF Rx Instructions: Administer 10 units subcut three times a day before meals. Victoza 2-Henri 0.6 mg/0.1 mL (18 mg/3 mL) pen injector 1.8 mg SUBCUT QAM Qty: 9 3RF diazepam [Valium] 10 mg tablet 10 mg PO ONCE PRN (Reason: anxiety) Qty: 1 0RF Rx Instructions: tAKE TABLET 1 HR PRIOR TO mri lisinopril 40 mg tablet 30 mg PO QAM aspirin 81 mg Tablet,Delayed Release (Dr/Ec) 81 mg PO QAM metoprolol tartrate 50 mg tablet 100 mg PO BID cetirizine 10 mg tablet 10 mg PO BID PRN (Reason: dizziness) Qty: 60 0RF atorvastatin 20 mg Tablet 20 mg PO QPM albuterol sulfate 90 mcg/actuation Hfa Aerosol Inhaler 2 puff INHALATION Q6H PRN (Reason: Shortness Of Breath) cholecalciferol (vitamin D3) [Vitamin D3] 25 mcg (1,000 unit) Tablet 25 mcg PO DAILY Discharge Orders: Discharge ED (Routine); Ordered 11/03/22 Ordered By: Nancy Vance Discharge Diet: Advance as tolerated Discharge Activity: Resume usual activity Patient Instructions: Hypoglycemia in a Person with Diabetes (ED), Weakness (ED) Coding Level of Care Code ED Form Setter [employer] Forms for Christin Chang
[2022-11-03 13:30] LABS: Basophils # 0.1 10^3/uL (0.0-0.1); Basophils % 0.9 %; Eosinophils # 0.2 10^3/uL (0.0-0.8); Eosinophils % 3.2 %; Hematocrit 48.4 % (42.0-52.0); Hemoglobin 15.7 g/dL (11.7-16.6); Lymphocytes # 2.2 10^3/uL (0.8-4.8); Mean Corpuscular HGB Conc 32.4 g/dL (30.0-36.0); Mean Corpuscular Hemoglobin 26.1 pg (28.0-34.0); Mean Corpuscular Volume 80.5 fl (80-94); Mean Platelet Volume 9.7 fL (7.4-10.4); Monocytes # 0.5 10^3/uL (0.2-0.9); Monocytes % 7.2 %; Neutrophils # 4.31 10^3/uL (1.8-7.7); Neutrophils % 58.3 %; Nucleated Red Blood Cells % 0 %; Platelet Count 269 10^3/cmm (130-400); Red Blood Count 6.01 10^6/uL (4.1-5.3); Red Cell Distribution Width 13.2 % (12.1-15.1); White Blood Count 7.4 10^3/uL (4.0-10.0)
[2022-11-03 13:36] VITALS: BP 144/72; PULSE 66; O2SAT 97
[2022-11-03 13:43] LABS: Alanine Aminotransferase 39 U/L (0-41); Albumin Level 4.1 g/dL (3.5-5.2); Alkaline Phosphatase 79 U/L (40-130); Aspartate Amino Transferase 26 U/L (0-40); Blood Urea Nitrogen 11 mg/dL (6-20); Calcium 8.9 mg/dL (8.5-10.5); Carbon Dioxide 28 mmol/L (22-29); Chloride 100 mmol/L (98-107); Globulin 2.7 g/dL (1.3-4.6); Glucose 153 mg/dL (65-115); Osmolality Calculated 290 mOsm/kg (285-295); Sodium 139 mmol/L (136-145); Total Bilirubin 0.6 mg/dL (0.15-1.2); Total Protein 6.8 g/dL (6.6-8.7)
[2022-11-03 13:44] LABS: Anion Gap 14.7 (5-19); Potassium 3.7 mmol/L (3.5-5.1)
== END 2022-11-03 14:08 | disposition home or self-care (01) ==
PROVIDERS: Emergency Provider Emergency Medicine; PCP Nurse Practitioner Family
DX: R53.1 Weakness (principal); E11.649 Type 2 diabetes mellitus with hypoglycemia without coma; Z79.82 Long term (current) use of aspirin; Z79.4 Long term (current) use of insulin; Z79.84 Long term (current) use of oral hypoglycemic drugs; I10 Essential (primary) hypertension; F17.290 Nicotine dependence, other tobacco product, uncomplicated
CPT/HCPCS: 36416; 80053; 82962; 85025; 99283

== ENCOUNTER 2022-11-24 19:22 | Emergency (ER) | payer OTHER, SELFPAY ==
[2022-03-15 08:05] VITALS: BP 132/80; BMI 61.5
[2022-11-24 19:32] VITALS: BP 154/102; PULSE 107; RESP 18; TEMP 36.9; O2SAT 97
--- NOTE | 2022-11-24 21:01 | USR_ITS ---
PROCEDURE INFORMATION: Exam: US Duplex Left Lower Extremity Veins, Limited Exam date and time: 11/24/2022 10:00 PM Age: 42 years old Clinical indication: Pain; Leg, lower; Left; Additional info: Pain swelling left calf TECHNIQUE: Imaging protocol: Real-time duplex ultrasound of the left extremity with 2-D jose scale, color Doppler flow and spectral waveform analysis including responses to compression and other maneuvers (when performed) with image documentation. Limited exam focused on the left lower extremity veins. COMPARISON: CT abdomen pelvis w con* [id number] 05/28/2021 9:04 AM FINDINGS: Left deep veins: Unremarkable. The common femoral, femoral, proximal profunda femoral and popliteal veins are patent without thrombus. Normal Doppler waveforms. Normal compressibility and/or augmentation response. Left superficial veins: Unremarkable. Saphenofemoral junction is patent without thrombus. Soft tissues: Unremarkable. US/CV venous duplex [facility] [id number] IMPRESSION: No evidence of deep vein thrombosis.
--- NOTE | 2022-11-24 22:00 | PC.NURSE ---
to Ultrasound via wheelchair
[2022-11-24 23:36] VITALS: BP 152/85; PULSE 91; RESP 17; O2SAT 98
[2022-11-24] MEDS: oxyCODONE-APAP 5-325 mg Tablet 2 TAB PO (23:58)
--- NOTE | 2022-11-27 21:30 | ED_ITS ---
HPI - Extremity Problem General: Chief complaint: Extremity Injury, Lower Stated complaint: left leg injury Time Seen by Provider: 11/24/22 23:24 Source: patient History of Present Illness: 42 year old male who injured his left leg three days ago. He felt a pop, and had swelling. He continued activities including a softball game and other things. He presents with left leg swelling, increasing pain, and trouble weight bearing. The pain seemed to worsen today despite being three days in. No fever. No chest pain or shortness of breath. MD Complaint: extremity pain and extremity swelling Onset (ago): day(s) Pain Consistency: constant Location: left and lower extremity Radiation: none Exacerbating factors: weight bearing Associated symptoms: Reports rash; Deny arthralgias, chest pain, fever(s) or short of breath Review of Systems Const: Denies: fever(s) Eyes: Denies: change in vision Card: Denies: chest pain Resp: Denies: dyspnea or productive cough GI: Denies: abdominal pain or nausea : Denies: flank pain Musc: Reports: joint swelling; Denies: joint redness Skin/Breast: Reports: rash Neuro: Denies: numbness in extremities PFSH ED PFSH: Medical History Alcohol dependence, in remission Benign essential HTN Binge eating disorder Bipolar disorder, in partial remission, most recent episode manic Contusion of right foot Crepitus of joint of right wrist De Quervain's tenosynovitis, right DJD (degenerative joint disease) Dyspnea on exertion Gallstones GERD (gastroesophageal reflux disease) GI disease Hx MRSA infection Morbid obesity Morbid obesity Nephrolithiasis Nephropathy Obstructive sleep apnea Posttraumatic stress disorder Supraventricular tachycardia Tinea cruris Surgical History H/O oral surgery History of ankle surgery S/P adenoidectomy S/P cholecystectomy S/P hernia repair S/P knee surgery S/P myringotomy with insertion of tube S/P tendon repair S/P vasectomy Family History Other Adopted Social History Smoking and tobacco status: current every day smoker e-cigarettes E-Cigarette Details: vaporizer device and without nicotine Smoking risk assessment/counseling performed?: Yes Tobacco counseling given: counseling >3 minutes Alcohol intake: former Year of sobriety/quit date alcohol: 11mo Substance/Drug Use: current Other substance/drug use details: CBD Adopted: Yes Caregiver/support person: No Lives independently: Yes Household members: spouse Housing: Apartment Marital status: Number of children: 2 Highest education level completed: Some College, No Degree service: Yes status: Medically Discharged/Retired branch: [employer] Current occupational status: disabled Pets and animals: Yes Pets & animals: dog(s) Leisure activites: games Sexually active: Yes Do you think of yourself as: Straight/Heterosexual Current gender identity: Male Leda/Presybeterian: None Special leda needs: No Agree to transfusion: Yes Financial difficulty paying for basics: Not Very Hard Course Vital Signs: Vital signs: Vital Signs Temperature 98.4 F 11/24/22 19:32 Pulse Rate 91 11/24/22 23:36 Respiratory Rate 17 11/24/22 23:36 Blood Pressure 152/85 11/24/22 23:36 Pulse Oximetry 98 11/24/22 23:36 Oxygen Delivery Me thod Room Air 11/24/22 23:36 MDM - Extremity (Nontraumatic) Medical Decision Making Ultrasound for DVT is negative. Patient likely has a tennis leg versus medial soleus strain, vs plantaris rupture based on exam. Protected weight bearing, early motion, and decrease activities. Ice. PCP follow up. Lab Data Radiology Impressions Venous Duplex 11/24/22 21:01 IMPRESSION: No evidence of deep vein thrombosis. Discharge Plan Discharge Patient Disposition: Home Clinical Impression: Strain of calf muscle Condition: Stable Prescriptions: New ketorolac 10 mg tablet 10 mg PO TID PRN (Reason: pain) Qty: 10 0RF No Action (DME) Custom Molded Orthotics See Rx Instructions .Route .MEDSUPPLY Qty: 1 0RF Rx Instructions: As directed J P & O Lantus Solostar U-100 Insulin 100 unit/mL (3 mL) insulin pen 78 unit SUBCUT BID Qty: 15 3RF Rx Instructions: Inject 78 units twice a day. tizanidine 4 mg capsule 4 mg PO BID PRN (Reason: muscle spasticity) 7 Days Qty: 7 0RF digoxin 125 mcg (0.125 mg) tablet 125 mcg PO QAM pantoprazole 20 mg tablet,delayed release (DR/EC) 20 mg PO DAILY (DME) Diabetic shoes with 3 sets of insoles See Rx Instructions .Route .MEDSUPPLY Qty: 1 0RF Rx Instructions: As directed by SHELLI&O isosorbide mononitrate 60 mg tablet extended release 24 hr 60 mg PO DAILY Qty: 90 3RF hydralazine 25 mg tablet 25 mg PO BID amlodipine 10 mg tablet 10 mg PO DAILY Jardiance 25 mg tablet 25 mg PO DAILY (DME) Cam boot to right See Rx Instructions .Route .MEDSUPPLY Qty: 1 0RF Rx Instructions: As directed (DME) Diabetic High Top Velcro Tennis Shoes with Custom Molded Orthotics See Rx Instructions .Route .MEDSUPPLY Qty: 1 0RF Rx Instructions: As directed HOME (DME) cock up wrist splint See Rx Instructions .Route .MEDSUPPLY Qty: 1 0RF Rx Instructions: As directed metformin 1,000 mg tablet 1,000 mg PO BID Qty: 180 0RF Rx Instructions: Take one tablet by mouth twice a day. insulin aspart U-100 [Novolog FlexPen U-100 Insulin] 100 unit/mL (3 mL) insulin pen 10 unit SUBCUT TID Qty: 15 3RF Rx Instructions: Administer 10 units subcut three times a day before meals. Victoza 2-Henri 0.6 mg/0.1 mL (18 mg/3 mL) pen injector 1.8 mg SUBCUT QAM Qty: 9 3RF diazepam [Valium] 10 mg tablet 10 mg PO ONCE PRN (Reason: anxiety) Qty: 1 0RF Rx Instructions: tAKE TABLET 1 HR PRIOR TO mri lisinopril 40 mg tablet 30 mg PO QAM aspirin 81 mg Tablet,Delayed Release (Dr/Ec) 81 mg PO QAM metoprolol tartrate 50 mg tablet 100 mg PO BID cetirizine 10 mg tablet 10 mg PO BID PRN (Reason: dizziness) Qty: 60 0RF atorvastatin 20 mg Tablet 20 mg PO QPM albuterol sulfate 90 mcg/actuation Hfa Aerosol Inhaler 2 puff INHALATION Q6H PRN (Reason: Shortness Of Breath) cholecalciferol (vitamin D3) [Vitamin D3] 25 mcg (1,000 unit) Tablet 25 mcg PO DAILY Discharge Orders: Discharge ED (Routine); Ordered 11/24/22 Ordered By: Gallito Branch Referrals: Toña Ivey, [facility] [employer] [employer] [facility] [Primary Care Provider] - 4-7 days Patient Instructions: Muscle Strain (ED), Opioid Safety, Pain Management Activity Restrictions/Additional Instructions: Ice frequently. Protected weightbearing with crutches. Follow-up with your doctor. Physical therapy may be needed for ongoing symptoms. Medication as directed. Coding Level of Care Code ED Radiation Control Specialist for Christin Chang
== END 2022-11-25 00:05 | disposition home or self-care (01) ==
PROVIDERS: Emergency Provider Emergency Medicine; PCP Nurse Practitioner Family
DX: S86.112A Strain of other muscle(s) and tendon(s) of posterior muscle group at lower leg level, left leg, initial encounter (principal); Z79.82 Long term (current) use of aspirin; Z79.84 Long term (current) use of oral hypoglycemic drugs; Z79.4 Long term (current) use of insulin; F17.290 Nicotine dependence, other tobacco product, uncomplicated; I10 Essential (primary) hypertension; X58.XXXA Exposure to other specified factors, initial encounter
CPT/HCPCS: 93971; 99284; E0114

== ENCOUNTER 2022-12-04 22:24 | Emergency (ER) | payer OTHER, SELFPAY ==
[2022-03-15 08:05] VITALS: BP 132/80; BMI 61.5
--- NOTE | 2022-12-04 22:25 | XRR_ITS ---
PROCEDURE INFORMATION: Exam: XR Right Wrist Exam date and time: 12/04/2022 10:44 PM Age: 42 years old Clinical indication: Injury or trauma; Other: Punched wall; Blunt trauma (contusions or hematomas); Wrist; Right TECHNIQUE: Imaging protocol: Radiologic exam of the right wrist. Views: 3 or more views. COMPARISON: CR XR hand RT min 3V* [id number] 02/20/2021 12:30 PM FINDINGS: Bones/joints: No acute fracture or dislocation is noted. The skeletal structures seem age-appropriate. Mild right wrist degenerative change. Soft tissues: Unremarkable. XR/XR wrist RT min 3V* [id number] IMPRESSION: No acute findings.
[2022-12-04 22:26] VITALS: BP 157/116; PULSE 86; RESP 16; TEMP 36.7; O2SAT 94; BMI 58.8
--- NOTE | 2022-12-04 23:30 | W.ED.EXTPRO ---
HPI - Extremity Problem General: Chief complaint: Extremity Injury, Upper Stated complaint: Right wrist injury Time Seen by Provider: 12/04/22 22:32 History of Present Illness: 42 yo male patient presents with right wrist pain. Pt states he banged it against a wall yesterday and has pain and swelling today. Pt denies any numbness or tingling. pt is walking back to room holdnig cell phone and keys in right hand. Associated symptoms: Deny chest pain, fever(s) or rash Review of Systems Const: Denies: fever(s), chills, body aches, change in appetite, change in weight, fatigue, malaise or diaphoresis Eyes: Denies: change in vision, blurry vision, blind spots, photophobia, eye discomfort, eye discharge, eye redness, floaters or seeing flashes ENMT: Denies: throat pain, uvular edema, enlarged tonsils, odynophagia, hoarseness, mouth pain, swelling of lips/tongue, oral sores, bleeding gums, dental pain, dry mouth, ear or mastoid pain, ear discharge, change in hearing, tinnitus, disequilibrium, nasal discharge, nasal congestion, post nasal drip or sinus pain Card: Denies: chest pain, palpitations, irregular heart rhythm, edema, swelling of feet/ankles, lightheadedness, syncope, pre-syncope, dyspnea on exertion, orthopnea, leg pain with exertion or acrocyanosis Resp: Denies: dyspnea, productive cough, non-productive cough, wheezing, stridor, pain on inspiration, change in phlegm color, hemoptysis or chest congestion GI: Denies: abdominal pain, nausea, vomiting, hematemesis, dysphagia, diarrhea, constipation, GI cramping, change in bowel habits or rectal pain : Denies: flank pain, dysuria, urinary frequency, urinary urgency, urinary hesitancy or hematuria Musc: Denies: neck pain, back pain, joint pain, joint swelling, joint redness, joint warmth or deformity Skin/Breast: Denies: rash, pruritus, erythema, sores, new lesions, changes in skin color or dry skin Neuro: Denies: headache(s), numbness in extremities, weakness in extremities, sensory changes, lack of coordination, difficulty walking, frequent falls, dizziness, vertigo, confusion, behavioral changes, Slurred speech present, difficulty communicating thoughts or seizure-like activity Psych: Denies: anxiety, depression, suicidal ideation or homicidal ideation Endo: Denies: polyuria, polydipsia, tired all the time, cold intolerance, excessive sweating, flushing, hot flashes or heat intolerance Carl/Lymph: Denies: easy bruising, easy bleeding, petechiae, purpura, enlarged lymph nodes or tender lymph nodes All/Imm: Denies: urticaria, throat swelling, tongue swelling, facial swelling, acute wheezing or itchy eyes PFSH ED PFSH: Medical History Alcohol dependence, in remission Benign essential HTN Binge eating disorder Bipolar disorder, in partial remission, most recent episode manic Contusion of right foot Crepitus of joint of right wrist De Quervain's tenosynovitis, right DJD (degenerative joint disease) Dyspnea on exertion Gallstones GERD (gastroesophageal reflux disease) GI disease Hx MRSA infection Morbid obesity Morbid obesity Nephrolithiasis Nephropathy Obstructive sleep apnea Posttraumatic stress disorder Supraventricular tachycardia Tinea cruris Surgical History H/O oral surgery History of ankle surgery S/P adenoidectomy S/P cholecystectomy S/P hernia repair S/P knee surgery S/P myringotomy with insertion of tube S/P tendon repair S/P vasectomy Family History Other Adopted Social History Smoking and tobacco status: current every day smoker e-cigarettes E-Cigarette Details: vaporizer device and without nicotine Smoking risk assessment/counseling performed?: Yes Tobacco counseling given: counseling >3 minutes Alcohol intake: former Year of sobriety/quit date alcohol: 11mo Substance/Drug Use: current Other substance/drug use details: CBD Adopted: Yes Caregiver/support person: No Lives independently: Yes Household members: spouse Housing: Apartment Marital status: Number of children: 2 Highest education level completed: Some College, No Degree service: Yes status: Medically Discharged/Retired branch: [employer] Current occupational status: disabled Pets and animals: Yes Pets & animals: dog(s) Leisure activites: games Sexually active: Yes Do you think of yourself as: Straight/Heterosexual Current gender identity: Male Leda/Buddhist: None Special leda needs: No Agree to transfusion: Yes Financial difficulty paying for basics: Not Very Hard Physical Exam Const: COMMON NORMALS: no acute distress and patient oriented x3 HENMT: THROAT: no uvular edema Resp: COMMON NORMALS: normal respiratory effort and No retractions Cardio: COMMON NORMALS: regular rate and regular rhythm RATE: regular rate RHYTHM: regular rhythm Extremity: NARRATIVE EXTREMITY EXAM: right wrist has diffuse tenderness and swelling pt is NVi distally. Neuro: COMMON NORMALS: patient oriented x3 Psych: COMMON NORMALS: mental status grossly normal, denies homicidal ideation and denies suicidal ideation Skin: COMMON NORMALS: no rashes or lesions noted and no wounds GENERAL SKIN EXAM: no rashes or lesions noted Course Vital Signs: Vital signs: Vital Signs Temperature 98.0 F 12/04/22 22:26 Pulse Rate 86 12/04/22 22:26 Respiratory Rate 16 12/04/22 22:26 Blood Pressure 157/116 12/04/22 22:26 Pulse Oximetry 94 12/04/22 22:26 Oxygen Delivery Me thod Room Air 12/04/22 22:26 MDM - Extremity (Nontraumatic) Medical Decision Making Patient is well appearing non toxic and in no acute distress. 42 yo male patient presents with right wrist pain. Pt states he banged it against a wall yesterday and has pain and swelling today. Pt denies any numbness or tingling. pt is walking back to room holdnig cell phone and keys in right hand. xray does not reveal any fracture or dislocation. Pt is nvi distally. Patient did not want a plint as he states he has one at home he will use. Patient advised if no improvement to follow up for xray in 1-2 weeks. Return precautions and home care reveiwed Lab Data Radiology Impressions Wrist X-Ray 12/04/22 22:25 IMPRESSION: No acute findings. Discharge Plan Discharge Patient Disposition: Home Clinical Impression: Sprain and strain of wrist Condition: Stable Prescriptions: No Action (DME) Custom Molded Orthotics See Rx Instructions .Route .MEDSUPPLY Qty: 1 0RF Rx Instructions: As directed J P & O Lantus Solostar U-100 Insulin 100 unit/mL (3 mL) insulin pen 78 unit SUBCUT BID Qty: 15 3RF Rx Instructions: Inject 78 units twice a day. tizanidine 4 mg capsule 4 mg PO BID PRN (Reason: muscle spasticity) 7 Days Qty: 7 0RF digoxin 125 mcg (0.125 mg) tablet 125 mcg PO QAM pantoprazole 20 mg tablet,delayed release (DR/EC) 20 mg PO DAILY (DME) Diabetic shoes with 3 sets of insoles See Rx Instructions .Route .MEDSUPPLY Qty: 1 0RF Rx Instructions: As directed by SHELLI&O isosorbide mononitrate 60 mg tablet extended release 24 hr 60 mg PO DAILY Qty: 90 3RF hydralazine 25 mg tablet 25 mg PO BID amlodipine 10 mg tablet 10 mg PO DAILY Jardiance 25 mg tablet 25 mg PO DAILY (DME) Cam boot to right See Rx Instructions .Route .MEDSUPPLY Qty: 1 0RF Rx Instructions: As directed (DME) Diabetic High Top Velcro Tennis Shoes with Custom Molded Orthotics See Rx Instructions .Route .MEDSUPPLY Qty: 1 0RF Rx Instructions: As directed HOME (DME) cock up wrist splint See Rx Instructions .Route .MEDSUPPLY Qty: 1 0RF Rx Instructions: As directed metformin 1,000 mg tablet 1,000 mg PO BID Qty: 180 0RF Rx Instructions: Take one tablet by mouth twice a day. insulin aspart U-100 [Novolog FlexPen U-100 Insulin] 100 unit/mL (3 mL) insulin pen 10 unit SUBCUT TID Qty: 15 3RF Rx Instructions: Administer 10 units subcut three times a day before meals. Victoza 2-Henri 0.6 mg/0.1 mL (18 mg/3 mL) pen injector 1.8 mg SUBCUT QAM Qty: 9 3RF diazepam [Valium] 10 mg tablet 10 mg PO ONCE PRN (Reason: anxiety) Qty: 1 0RF Rx Instructions: tAKE TABLET 1 HR PRIOR TO mri lisinopril 40 mg tablet 30 mg PO QAM aspirin 81 mg Tablet,Delayed Release (Dr/Ec) 81 mg PO QAM metoprolol tartrate 50 mg tablet 100 mg PO BID cetirizine 10 mg tablet 10 mg PO BID PRN (Reason: dizziness) Qty: 60 0RF atorvastatin 20 mg Tablet 20 mg PO QPM albuterol sulfate 90 mcg/actuation Hfa Aerosol Inhaler 2 puff INHALATION Q6H PRN (Reason: Shortness Of Breath) cholecalciferol (vitamin D3) [Vitamin D3] 25 mcg (1,000 unit) Tablet 25 mcg PO DAILY ketorolac 10 mg tablet 10 mg PO TID PRN (Reason: pain) Qty: 10 0RF Discharge Orders: Discharge ED (Routine); Ordered 12/04/22 Ordered By: Rashmi Smith Referrals: Toña Ivey FNP [Primary Care Provider] - Discharge Diet: Advance as tolerated Discharge Activity: Increase activity as tolerated Patient Instructions: Opioid Safety, Pain Management Activity Restrictions/Additional Instructions: Please wear wrist splint Ice Elevate follow up for repat xray if no improvement in 1 week Coding Level of Care Code ED Shell Mold Bonding Machine Operator for Christin Chang
== END 2022-12-04 23:47 | disposition home or self-care (01) ==
PROVIDERS: Emergency Provider Registered Nurse; PCP Nurse Practitioner Family
DX: S63.501A Unspecified sprain of right wrist, initial encounter (principal); S66.911A Strain of unspecified muscle, fascia and tendon at wrist and hand level, right hand, initial encounter; Z79.4 Long term (current) use of insulin; Z79.84 Long term (current) use of oral hypoglycemic drugs; Z79.82 Long term (current) use of aspirin; F17.290 Nicotine dependence, other tobacco product, uncomplicated; I10 Essential (primary) hypertension; W22.8XXA Striking against or struck by other objects, initial encounter
CPT/HCPCS: 73110; 99283

== ENCOUNTER → 2023-01-07 13:45 | Outpatient (BNVA) | payer MEDICAID, SELFPAY ==
[2022-03-15 08:05] VITALS: BP 132/80; BMI 61.5
== END ==
PROVIDERS: PCP Nurse Practitioner Family; Visit Provider Internal Medicine Cardiovascular Disease
DX: R07.9 Chest pain, unspecified (principal); F31.73 Bipolar disorder, in partial remission, most recent episode manic; I10 Essential (primary) hypertension; R06.00 Dyspnea, unspecified; E66.01 Morbid (severe) obesity due to excess calories; Z68.43 Body mass index [BMI] 50.0-59.9, adult; G47.33 Obstructive sleep apnea (adult) (pediatric); E11.9 Type 2 diabetes mellitus without complications; I47.1 Supraventricular tachycardia; Z79.4 Long term (current) use of insulin
CPT/HCPCS: 99214

== ENCOUNTER 2023-01-26 10:23 | Emergency (ER) | payer OTHER, SELFPAY ==
[2022-03-15 08:05] VITALS: BP 132/80; BMI 61.5
[2023-01-26 10:25] VITALS: BP 128/76; PULSE 99; RESP 18; TEMP 36.8; O2SAT 97; BMI 58.6
--- NOTE | 2023-01-26 10:33 | W.ED.GENADLT ---
HPI - General Adult General: Chief complaint: General Medical Stated complaint: heat exhaustion Time Seen by Provider: 01/26/23 10:28 Source: patient Mode of arrival: EMS Limitations: no limitations History of Present Illness: 42yo male Presents via EMS for evaluation of possible heat exhaustion. 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 Patient reports he does have a history of heat exhaustion and was concerned that it may be starting again. Patient reports that he did drink over a gallon of water this morning. He denies increased activities over the past few days, fever, chills, recent illness PFSH ED PFSH: Medical History Alcohol dependence, in remission Benign essential HTN Binge eating disorder Bipolar disorder, in partial remission, most recent episode manic Contusion of right foot Crepitus of joint of right wrist De Quervain's tenosynovitis, right DJD (degenerative joint disease) Dyspnea on exertion Gallstones GERD (gastroesophageal reflux disease) GI disease Hx MRSA infection Morbid obesity Morbid obesity Nephrolithiasis Nephropathy Obstructive sleep apnea Posttraumatic stress disorder Psychiatric care Supraventricular tachycardia Tinea cruris Surgical History H/O oral surgery History of ankle surgery S/P adenoidectomy S/P cholecystectomy S/P hernia repair S/P knee surgery S/P myringotomy with insertion of tube S/P tendon repair S/P vasectomy Family History Other Adopted Social History Smoking and tobacco status: current every day smoker e-cigarettes E-Cigarette Details: vaporizer device and without nicotine Smoking risk assessment/counseling performed?: Yes Tobacco counseling given: counseling >3 minutes Alcohol intake: former Year of sobriety/quit date alcohol: 11mo Substance/Drug Use: current Other substance/drug use details: CBD Adopted: Yes Caregiver/support person: No Lives independently: Yes Household members: spouse Housing: Apartment Marital status: Number of children: 2 Highest education level completed: Some College, No Degree service: Yes status: Medically Discharged/Retired branch: [employer] Current occupational status: disabled Pets and animals: Yes Pets & animals: dog(s) Leisure activites: games Sexually active: Yes Do you think of yourself as: Straight/Heterosexual Current gender identity: Male Leda/Holiness: None Special leda needs: No Agree to transfusion: Yes Financial difficulty paying for basics: Not Very Hard Physical Exam Const: COMMON NORMALS: no acute distress and alert GENERAL APPEARANCE: cooperative NUTRITIONAL APPEARANCE: obese (BMI 58.7) OTHER: Patient is sitting upright on the stretcher in no acute distress. He is able to give history with no difficulty. No family is at bedside at time of exam HENMT: COMMON NORMALS: normocephalic and Normal external nose present HEAD & SCALP: normocephalic NOSE: Normal external nose present MOUTH: lip normal Eye: GENERAL EYE: appearance normal, both eyes and all related structures Chest: CHEST: Yes Symmetrical chest wall rise Resp: COMMON NORMALS: normal respiratory effort EFFORT & INSPECTION: Yes able to speak in complete sentences Cardio: COMMON NORMALS: regular rate and regular rhythm RATE: regular rate RHYTHM: regular rhythm GI: COMMON NORMALS: Soft to palpation PALPATION: Yes Soft to palpation Extremity: COMMON NORMALS: full ROM and capillary refill normal Neuro: SENSORIUM/ORIENTATION: Yes alert SPEECH: speech normal Psych: COMMON NORMALS: cooperative and speech normal ATTITUDE: Yes calm SPEECH: Yes normal speech Course Vital Signs: Vital signs: Vital Signs Temperature 98.2 F 01/26/23 10:25 Pulse Rate 99 01/26/23 10:25 Respiratory Rate 18 01/26/23 10:25 Blood Pressure 128/76 01/26/23 10:25 Pulse Oximetry 97 01/26/23 10:25 Oxygen Delivery Me thod Room Air 01/26/23 10:25 MDM - General Adult Medical Decision Making 42yo male With a history of diabetes and hypertension here via EMS for concern of possible heat exhaustion. Patient reports that he did have softball practice this morning where he began to experience cramping in his calves and tingling in his upper body. 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 Patient states that he is still having some cramping in his legs. Reports that he does have a history of heat exhaustion and was concerned that it may be returning. Patient denies any recent illness, fever, cough, congestion, difficulty breathing, shortness of breath, chest pain. Patient is nontoxic in appearance. Vital signs are stable. Sodium noted to be mildly decreased at 131, glucose is elevated at 188. CK is noted to be in the normal range. No indication of dehydration noted on labs today. Discussed findings with patient. Advised his symptoms were likely related to heat cramps. Encouraged patient to increase his fluid intake and use electrolyte drinks when he is active in the heat. Recommend he continue to monitor for symptoms. Advised to follow-up with primary care, call Saturday with an update of symptoms and to discuss recheck. Emergency department if any rapid worsening symptoms and as needed. Differential Diagnosis Heat related illness, , dehydration, hypoglycemia Medical Records I reviewed the patient's medical records. Lab Data I reviewed the patient's lab results. 01/26/23 10:44 01/26/23 10:44 Laboratory Results WBC 8.44 10^3/uL (3.29-11.43) 01/26/23 10:44 RBC 5.94 10^6/uL (3.85-5.65) H 01/26/23 10:44 Hgb 15.70 g/dL (11.27-16.99) 01/26/23 10:44 Hct 48.8 % (37-53) 01/26/23 10:44 MCV 82.2 fl (82-101) 01/26/23 10:44 MCH 26.4 pg (27-33) L 01/26/23 10:44 MCHC 32.2 g/dL (30-55) 01/26/23 10:44 RDW 13.2 % (12.1-15.1) 01/26/23 10:44 Plt Count 318 10^3/cmm (157-399) 01/26/23 10:44 MPV 9.6 fL (7.4-10.4) 01/26/23 10:44 Neut % (Auto) 63.4 % 01/26/23 10:44 Lymph % (Auto) 25.7 % 01/26/23 10:44 Coles % (Auto) 7.6 % 01/26/23 10:44 Eos % (Auto) 1.9 % 01/26/23 10:44 Baso % (Auto) 0.9 % 01/26/23 10:44 Neut # (Auto) 5.35 10^3/uL (1.8-7.7) 01/26/23 10:44 Lymph # (Auto) 2.2 10^3/uL (0.8-4.8) 01/26/23 10:44 Coles # (Auto) 0.6 10^3/uL (0.2-0.9) 01/26/23 10:44 Eos # (Auto) 0.2 10^3/uL (0.0-0.8) 01/26/23 10:44 Baso # (Auto) 0.1 10^3/uL (0.0-0.1) 01/26/23 10:44 Nucleated RBC % (auto) 0 % 01/26/23 10:44 Nucleated RBCs # 0.0 /100WBC 01/26/23 10:44 Sodium 131 mmol/L (136-145) L 01/26/23 10:44 Potassium 4.0 mmol/L (3.5-5.1) 01/26/23 10:44 Chloride 94 mmol/L (98-107) L 01/26/23 10:44 Carbon Dioxide 26 mmol/L (22-29) 01/26/23 10:44 Anion Gap 15.0 (5-19) 01/26/23 10:44 BUN 8 mg/dL (6-20) 01/26/23 10:44 Creatinine 0.8 mg/dL (0.7-1.2) 01/26/23 10:44 GFR Calculation 105.5 mL/min (90-130) 01/26/23 10:44 Glucose 188 mg/dL (65-115) H 01/26/23 10:44 POC Glucose 180 mg/dL (70-110) H 01/26/23 10:42 Calculated Osmolality 275 mOsm/kg (285-295) L 01/26/23 10:44 Calcium 9.5 mg/dL (8.5-10.5) 01/26/23 10:44 Creatine Kinase 64 U/L (39-308) 01/26/23 10:44 Discharge Plan Discharge Patient Disposition: Home Clinical Impression: Heat cramp, initial encounter Condition: Stable Prescriptions: No Action (DME) Custom Molded Orthotics See Rx Instructions .Route .MEDSUPPLY Qty: 1 0RF Rx Instructions: As directed J P [employer] O Lantus Solostar U-100 Insulin 100 unit/mL (3 mL) insulin pen 78 unit SUBCUT BID Qty: 15 3RF Rx Instructions: Inject 78 units twice a day. tizanidine 4 mg capsule 4 mg PO BID PRN (Reason: muscle spasticity) 7 Days Qty: 7 0RF digoxin 125 mcg (0.125 mg) tablet 125 mcg PO QAM pantoprazole 20 mg tablet,delayed release (DR/EC) 20 mg PO DAILY (DME) Diabetic shoes with 3 sets of insoles See Rx Instructions .Route .MEDSUPPLY Qty: 1 0RF Rx Instructions: As directed by [facility] isosorbide mononitrate 60 mg tablet extended release 24 hr 60 mg PO DAILY Qty: 90 3RF amlodipine 10 mg tablet 10 mg PO DAILY Jardiance 25 mg tablet 25 mg PO DAILY (DME) Cam boot to right See Rx Instructions .Route .MEDSUPPLY Qty: 1 0RF Rx Instructions: As directed ([facility] [place]) Diabetic High Top Velcro Tennis Shoes with Custom Molded Orthotics See Rx Instructions .Route .MEDSUPPLY Qty: 1 0RF Rx Instructions: As directed HOME hydralazine 50 mg tablet 50 mg PO BID Qty: 60 5RF (DME) cock up wrist splint See Rx Instructions .Route .MEDSUPPLY Qty: 1 0RF Rx Instructions: As directed metformin 1,000 mg tablet 1,000 mg PO BID Qty: 180 0RF Rx Instructions: Take one tablet by mouth twice a day. insulin aspart U-100 [Novolog FlexPen U-100 Insulin] 100 unit/mL (3 mL) insulin pen 10 unit SUBCUT TID Qty: 15 3RF Rx Instructions: Administer 10 units subcut three times a day before meals. lisinopril 40 mg tablet 30 mg PO QAM aspirin 81 mg Tablet,Delayed Release (Dr/Ec) 81 mg PO QAM metoprolol tartrate 50 mg tablet 100 mg PO BID cetirizine 10 mg tablet 10 mg PO BID PRN (Reason: dizziness) Qty: 60 0RF atorvastatin 20 mg Tablet 20 mg PO QPM albuterol sulfate 90 mcg/actuation Hfa Aerosol Inhaler 2 puff INHALATION Q6H PRN (Reason: Shortness Of Breath) cholecalciferol (vitamin D3) [Vitamin D3] 25 mcg (1,000 unit) Tablet 25 mcg PO DAILY ketorolac 10 mg tablet 10 mg PO TID PRN (Reason: pain) Qty: 10 0RF Discharge Orders: Discharge ED (Routine); Ordered 01/26/23 Ordered By: Darryn Molina Referrals: Toña Ivey, LENS GRINDER [Primary Care Provider] - Discharge Diet: Usual diet Discharge Activity: Increase activity as tolerated Patient Instructions: Heat Cramps - Adult Activity Restrictions/Additional Instructions: Continue to monitor your symptoms Increase fluid intake. Drink an electrolyte solution when out in the heat (gatorade, powerade, etc) Follow up with your doctor, call Saturday with an update of symptoms and for a recheck Return to the emergency department as needed Coding Level of Care Code ED Receiving Room Clerk for Christin Chang
[2023-01-26 10:46] LABS: Glucose Point of Care 180 mg/dL (70-110)
[2023-01-26 10:50] LABS: Basophils # 0.1 10^3/uL (0.0-0.1); Basophils % 0.9 %; Eosinophils # 0.2 10^3/uL (0.0-0.8); Eosinophils % 1.9 %; Hematocrit 48.8 % (37-53); Lymphocytes # 2.2 10^3/uL (0.8-4.8); Lymphocytes % 25.7 %; Mean Corpuscular HGB Conc 32.2 g/dL (30-55); Mean Corpuscular Hemoglobin 26.4 pg (27-33); Mean Corpuscular Volume 82.2 fl (82-101); Mean Platelet Volume 9.6 fL (7.4-10.4); Monocytes # 0.6 10^3/uL (0.2-0.9); Monocytes % 7.6 %; Neutrophils # 5.35 10^3/uL (1.8-7.7); Neutrophils % 63.4 %; Nucleated Red Blood Cells % 0 %; Platelet Count 318 10^3/cmm (157-399); Red Blood Count 5.94 10^6/uL (3.85-5.65); Red Cell Distribution Width 13.2 % (12.1-15.1); White Blood Count 8.44 10^3/uL (3.29-11.43)
[2023-01-26 11:15] LABS: Blood Urea Nitrogen 8 mg/dL (6-20); Calcium 9.5 mg/dL (8.5-10.5); Carbon Dioxide 26 mmol/L (22-29); Chloride 94 mmol/L (98-107); Creatine Phosphokinase 64 U/L (39-308); Glomerular Filtration Rate 105.5 mL/min (90-130); Glucose 188 mg/dL (65-115); Osmolality Calculated 275 mOsm/kg (285-295); Sodium 131 mmol/L (136-145)
[2023-01-26 11:32] VITALS: RESP 18; O2SAT 98
== END 2023-01-26 11:35 | disposition home or self-care (01) ==
PROVIDERS: Emergency Provider Nurse Practitioner; PCP Nurse Practitioner Family
DX: T67.2XXA Heat cramp, initial encounter (principal); X30.XXXA Exposure to excessive natural heat, initial encounter; Y93.64 Activity, baseball
CPT/HCPCS: 36415; 36416; 80048; 82550; 82962; 85025; 99283

== ENCOUNTER → 2023-01-29 07:45 | Outpatient (BNVA) | payer OTHER, SELFPAY ==
[2022-03-15 08:05] VITALS: BP 132/80; BMI 61.5
== END ==
PROVIDERS: PCP Nurse Practitioner Family; Visit Provider Podiatrist Foot & Ankle Surgery
DX: E11.42 Type 2 diabetes mellitus with diabetic polyneuropathy; L60.3 Nail dystrophy; M21.41 Flat foot [pes planus] (acquired), right foot; M21.42 Flat foot [pes planus] (acquired), left foot; E11.8 Type 2 diabetes mellitus with unspecified complications; Z79.84 Long term (current) use of oral hypoglycemic drugs; Z79.4 Long term (current) use of insulin
CPT/HCPCS: 11721

== ENCOUNTER 2023-03-04 08:20 | Emergency (ER) | payer OTHER, SELFPAY ==
[2022-03-15 08:05] VITALS: BP 132/80; BMI 61.5
[2023-03-04 08:22] VITALS: BP 176/95; PULSE 79; RESP 18; TEMP 36.4; O2SAT 97; BMI 58.3
[2023-03-04 08:25] VITALS: BP 176/95; PULSE 75; RESP 18; O2SAT 98
--- NOTE | 2023-03-04 08:43 | XRR_ITS ---
PROCEDURE INFORMATION: Exam: XR Chest Exam date and time: 03/04/2023 8:59 AM Age: 42 years old Clinical indication: Cough and dyspnea; Additional info: Dyspnea/cough TECHNIQUE: Imaging protocol: Radiologic exam of the chest. Views: 1 view. COMPARISON: CR XR chest 1V portable [id number] 04/08/2022 3:53 PM FINDINGS: Lungs: The lung parenchyma is clear. Pleural spaces: No pneumothorax. No pleural effusion. Heart/Mediastinum: The heart is mildly enlarged for size, similar to prior exam. Bones/joints: Unremarkable. XR/XR chest 1V portable [id number] IMPRESSION: Stable mild cardiomegaly.
--- NOTE | 2023-03-04 08:43 | ECG_ITS ---
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 Measurements Intervals [place] Rate: 70 P: 48 [place]: 221 QRS: 34 QRSD: 102 T: 30 QT: 406 QTc: 439 Interpretive Statements SINUS RHYTHM WITH FIRST DEGREE AV BLOCK LOW QRS VOLTAGE IN PRECORDIAL LEADS [QRS DEFLECTION < 1.0 mV IN CHEST LEADS] Compared to ECG 04/08/2022 16:53:10 Low QRS voltage now present Electronically Signed On 03-04-2023 10:28:21 CDT by Laura Knapp M.D. [email or web address]
[2023-03-04 08:54] LABS: ABG PH Result 7.41 (7.35-7.45); Alveolar-Arterial Oxygen Gradi 2.6 mmHg (5-10); Arterial Blood Gas Hematocrit 47.8 % (42-52); Base Excess ABG 1.8 mmol/L (-2.0-2.0); Blood Gas Allen Test Pos; Blood Gas Operator Identificat CAK; Blood Gas Sample Site Radial, left; Blood Gas Sample Type Arterial; Carboxyhemoglobin 1.2 %THgb (0.4-20.1); HCO3 ABG 26.9 mmol/L (22-26); HGB O2 Sat 95.1 % (95-100); Ionized Calcium Level - ABG 1.2 mmol/L (1.1-1.4); Methemoglobin 0.1 % (0.4-1.5); Oxygen Device ROOM AIR; Oxygen Saturation ABG 96.4; Total Hemoglobin 15.6 g/dL (14-18)
[2023-03-04 08:55] LABS: Basophils # 0.1 10^3/uL (0.0-0.1); Basophils % 1.6 %; Eosinophils # 0.3 10^3/uL (0.0-0.8); Eosinophils % 4.6 %; Hematocrit 47.5 % (37-53); Lymphocytes # 1.9 10^3/uL (0.8-4.8); Lymphocytes % 27.3 %; Mean Corpuscular HGB Conc 32.6 g/dL (30-55); Mean Corpuscular Hemoglobin 26.6 pg (27-33); Mean Corpuscular Volume 81.5 fl (82-101); Mean Platelet Volume 9.6 fL (7.4-10.4); Monocytes # 0.5 10^3/uL (0.2-0.9); Monocytes % 6.7 %; Neutrophils % 59.5 %; Nucleated Red Blood Cells % 0 %; Platelet Count 300 10^3/cmm (157-399); Red Blood Count 5.83 10^6/uL (3.85-5.65); Red Cell Distribution Width 13.3 % (12.1-15.1); White Blood Count 6.89 10^3/uL (3.29-11.43)
[2023-03-04] MEDS: ondansetron 2 mg/ML SDV 2 mL 4 MG IVP (09:09)
[2023-03-04] MEDS: sodium chloride 0.9% 1,000 ML 999 ML IV (09:10)
--- NOTE | 2023-03-04 09:15 | ED_ITS ---
HPI - Nausea/Vomiting/Diarrhea General: Chief complaint: Nausea/Vomiting/Diarrhea Stated complaint: diabetic Time Seen by Provider: 03/04/23 08:21 Source: patient Mode of arrival: ambulatory History of Present Illness: 42-year-old male presents emergency room complaining of nausea and vomiting that began overnight. He taken his Ozempic which she has been on for a while and overnight began to have nausea vomiting denies any fever sweats or chills any anosmia or cough. His blood sugars did improve after he took the Ozempic his blood sugar on arrival here is 179. He denies any hematemesis or coffee-ground emesis no dysuria urgency or frequency no abdominal pain no chest pain or shortness of breath or cough MD elicited complaint: nausea and vomiting Onset (ago): minute(s) Associated nausea: Yes Associated abdominal pain: No Exacerbating factors: none Relieving factors: none Associated symtoms: Reports fatigue, anorexia, malaise and nausea; Denies anxiety, bloating, change in vision, chest pain, cough, diaphoresis, decreased urine output, dizziness, dysuria, epistaxis, fecal incontinence, fevers/chills, headache(s), myalgias, numbness, palpitations, rash, short of breath, syncope, tenesmus, tinnitus or weakness Review of Systems Const: Reports: fatigue and malaise; Denies: fever(s), chills or diaphoresis Eyes: Denies: change in vision ENMT: Denies: throat pain, ear or mastoid pain, tinnitus, nasal congestion or epistaxis Card: Denies: chest pain, palpitations or syncope Resp: Denies: dyspnea, productive cough or non-productive cough GI: Reports: nausea and vomiting; Denies: abdominal pain, diarrhea, bloating or fecal incontinence : Denies: dysuria, urinary frequency or urinary urgency Skin/Breast: Denies: rash or pruritus Neuro: Denies: headache(s) or dizziness Psych: Denies: anxiety PFSH ED PFSH: Medical History Alcohol dependence, in remission Benign essential HTN Binge eating disorder Bipolar disorder, in partial remission, most recent episode manic Contusion of right foot Crepitus of joint of right wrist De Quervain's tenosynovitis, right DJD (degenerative joint disease) Dyspnea on exertion Gallstones GERD (gastroesophageal reflux disease) GI disease Hx MRSA infection Morbid obesity Morbid obesity Nephrolithiasis Nephropathy Obstructive sleep apnea Posttraumatic stress disorder Psychiatric care Supraventricular tachycardia Tinea cruris Surgical History H/O oral surgery History of ankle surgery S/P adenoidectomy S/P cholecystectomy S/P hernia repair S/P knee surgery S/P myringotomy with insertion of tube S/P tendon repair S/P vasectomy Family History Other Adopted Social History Smoking and tobacco status: current every day smoker e-cigarettes E-Cigarette Details: vaporizer device and without nicotine Smoking risk assessment/counseling performed?: Yes Tobacco counseling given: counseling >3 minutes Alcohol intake: former Year of sobriety/quit date alcohol: 11mo Substance/Drug Use: current Other substance/drug use details: CBD Adopted: Yes Caregiver/support person: No Lives independently: Yes Household members: spouse Housing: Apartment Marital status: Number of children: 2 Highest education level completed: Some College, No Degree service: Yes status: Medically Discharged/Retired branch: [employer] Current occupational status: disabled Pets and animals: Yes Pets & animals: dog(s) Leisure activites: games Sexually active: Yes Do you think of yourself as: Straight/Heterosexual Current gender identity: Male Leda/Restorationism: None Special leda needs: No Agree to transfusion: Yes Financial difficulty paying for basics: Not Very Hard Physical Exam Const: GENERAL APPEARANCE: cooperative and comfortable ORIENTATION/CONSCIOUSNESS: Yes awake, Yes oriented to person, Yes oriented to place and Yes oriented to time HENMT: COMMON NORMALS: normocephalic, atraumatic and hearing grossly normal bilaterally HEAD & SCALP: normocephalic and atraumatic Resp: COMMON NORMALS: normal respiratory effort, No retractions, No use of accessory muscles and clear to auscultation bilaterally AUSCULTATION: clear to auscultation bilaterally Cardio: COMMON NORMALS: regular rate, regular rhythm and No murmurs present (Cardio) RATE: regular rate RHYTHM: regular rhythm GI: COMMON NORMALS: Soft to palpation and No hepatosplenomegaly present AUSCULTATION: Yes normoactive bowel sounds PALPATION: Yes Soft to palpation, No Tenderness to palpation present (GI), No Guarding due to palpation present (GI) and Yes No hepatosplenomegaly present Extremity: COMMON NORMALS: normal to inspection, capillary refill normal, no clubbing, cyanosis or edema, no calf tenderness and no pedal edema Neuro: SENSORIUM/ORIENTATION: Yes oriented to person, Yes oriented to place and Yes oriented to time Skin: COMMON NORMALS: no rashes or lesions noted GENERAL SKIN EXAM: no rashes or lesions noted Course Vital Signs: Vital signs: Vital Signs Temperature 97.6 F 03/04/23 08:22 Pulse Rate 67 03/04/23 10:59 Respiratory Rate 15 03/04/23 10:59 Blood Pressure 142/91 03/04/23 10:59 Pulse Oximetry 99 03/04/23 10:59 Oxygen Delivery Me thod Room Air 03/04/23 10:43 MDM - Nausea/Vomiting/Diarrhea Medical Decision Making Labs reviewed. Patient has improved with fluids and nausea medication will discharge patient home promethazine suspect this is in large part driven by the Ozempic. There is no sign of DKA clear liquid diet advance as tolerated discussed with primary care if they wish to continue the Ozempic. Medical Records I reviewed the patient's medical records. Lab Data I reviewed the patient's lab results. 03/04/23 08:48 03/04/23 08:48 Radiology Impressions Chest X-Ray 03/04/23 08:43 IMPRESSION: Stable mild cardiomegaly. Laboratory Results WBC 6.89 10^3/uL (3.29-11.43) 03/04/23 08:48 RBC 5.83 10^6/uL (3.85-5.65) H 03/04/23 08:48 Hgb 15.50 g/dL (11.27-16.99) 03/04/23 08:48 Hct 47.5 % (37-53) 03/04/23 08:48 MCV 81.5 fl (82-101) L 03/04/23 08:48 MCH 26.6 pg (27-33) L 03/04/23 08:48 MCHC 32.6 g/dL (30-55) 03/04/23 08:48 RDW 13.3 % (12.1-15.1) 03/04/23 08:48 Plt Count 300 10^3/cmm (157-399) 03/04/23 08:48 MPV 9.6 fL (7.4-10.4) 03/04/23 08:48 Neut % (Auto) 59.5 % 03/04/23 08:48 Lymph % (Auto) 27.3 % 03/04/23 08:48 [place] % (Auto) 6.7 % 03/04/23 08:48 Eos % (Auto) 4.6 % 03/04/23 08:48 Baso % (Auto) 1.6 % 03/04/23 08:48 Neut # (Auto) 4.10 10^3/uL (1.8-7.7) 03/04/23 08:48 Lymph # (Auto) 1.9 10^3/uL (0.8-4.8) 03/04/23 08:48 [place] # (Auto) 0.5 10^3/uL (0.2-0.9) 03/04/23 08:48 Eos # (Auto) 0.3 10^3/uL (0.0-0.8) 03/04/23 08:48 Baso # (Auto) 0.1 10^3/uL (0.0-0.1) 03/04/23 08:48 Nucleated RBC % (auto) 0 % 03/04/23 08:48 Nucleated RBCs # 0.0 /100WBC 03/04/23 08:48 Specimen Type Arterial 03/04/23 08:43 Sample Site Radial, left 03/04/23 08:43 ABG pH 7.41 (7.35-7.45) 03/04/23 08:43 ABG pCO2 43.0 mmHg (35-45) 03/04/23 08:43 ABG pO2 78.0 mmHg (80.0-100.0) L 03/04/23 08:43 ABG HCO3 26.9 mmol/L (22-26) H 03/04/23 08:43 ABG O2 Saturation 96.4 03/04/23 08:43 ABG Base Excess 1.8 mmol/L (-2.0-2.0) 03/04/23 08:43 Zeus Test Pos 03/04/23 08:43 A-a O2 Gradient 2.6 mmHg (5-10) L 03/04/23 08:43 Hematocrit 47.8 % (42-52) 03/04/23 08:43 Hgb O2 Saturation 95.1 % (95-100) 03/04/23 08:43 Carboxyhemoglobin 1.2 %THgb (0.4-20.1) 03/04/23 08:43 Methemoglobin 0.1 % (0.4-1.5) L 03/04/23 08:43 Total Hemoglobin 15.6 g/dL (14-18) 03/04/23 08:43 Sodium 140.0 mmol/L (131-143) 03/04/23 08:43 Potassium 4.0 mmol/L (3.5-5.0) 03/04/23 08:43 Glucose 227.0 mg/dL (70-115) H 03/04/23 08:43 Ionized Calcium 1.2 mmol/L (1.1-1.4) 03/04/23 08:43 O2 Delivery Device Room air 03/04/23 08:43 FiO2 21.0 % 03/04/23 08:43 Molding Cutter ID Cak 03/04/23 08:43 Sodium 139 mmol/L (136-145) 03/04/23 08:48 Potassium 4.4 mmol/L (3.5-5.1) 03/04/23 08:48 Chloride 103 mmol/L (98-107) 03/04/23 08:48 Carbon Dioxide 26 mmol/L (22-29) 03/04/23 08:48 Anion Gap 14.4 (5-19) 03/04/23 08:48 BUN 7 mg/dL (6-20) 03/04/23 08:48 Creatinine 0.8 mg/dL (0.7-1.2) 03/04/23 08:48 GFR Calculation 105.5 mL/min (90-130) 03/04/23 08:48 Glucose 233 mg/dL (65-115) H 03/04/23 08:48 Calculated Osmolality 293 mOsm/kg (285-295) 03/04/23 08:48 Lactic Acid 1.7 mmol/L (0.5-2.2) 03/04/23 08:48 Calcium 9.2 mg/dL (8.5-10.5) 03/04/23 08:48 Total Bilirubin 0.5 mg/dL (0.15-1.2) 03/04/23 08:48 AST 30 U/L (0-40) 03/04/23 08:48 ALT 40 U/L (0-41) 03/04/23 08:48 Alkaline Phosphatase 91 U/L (40-130) 03/04/23 08:48 Total Protein 6.9 g/dL (6.6-8.7) 03/04/23 08:48 Albumin 4.0 g/dL (3.5-5.2) 03/04/23 08:48 Globulin 2.9 g/dL (1.3-4.6) 03/04/23 08:48 Lipase 24 U/L (13-60) 03/04/23 08:48 Urine Color Yellow (Yellow) 03/04/23 08:56 Urine Appearance Hazy (CLEAR) A 03/04/23 08:56 Urine pH 7 (5-7) 03/04/23 08:56 Ur Specific [place] 1.015 (1.005-1.030) 03/04/23 08:56 Urine Protein 1+ (Negative) H 03/04/23 08:56 Urine Glucose (UA) 1+ (Normal) H 03/04/23 08:56 Urine Ketones Negative (Negative) 03/04/23 08:56 Urine Blood Neg (Negative) 03/04/23 08:56 Urine Nitrate Negative (Negative) 03/04/23 08:56 Urine Bilirubin Neg (Negative) 03/04/23 08:56 Urine Urobilinogen Norm mg/dL (Negative) 03/04/23 08:56 Ur Leukocyte Esterase Negative (Negative) 03/04/23 08:56 Urine RBC 0-4 /hpf (0-2) H 03/04/23 08:56 Urine WBC 0-4 /hpf (0-5) H 03/04/23 08:56 Ur Squamous Epith Cells 0-4 /hpf (0-5) H 03/04/23 08:56 Amorphous Sediment 4+ /hpf 03/04/23 08:56 Urine Bacteria Trace /hpf (NONE) 03/04/23 08:56 Serum Ketones Negative (Negative) 03/04/23 08:48 All radiology interpretation(s) finalized by discharge Discharge Plan Discharge Patient Disposition: Home Clinical Impression: Nausea & vomiting, Medication side effects Condition: Stable Prescriptions: New promethazine 25 mg tablet 25 mg PO Q6H PRN (Reason: nausea and vomiting) Qty: 20 0RF No Action (DME) Custom Molded Orthotics See Rx Instructions .Route .MEDSUPPLY Qty: 1 0RF Rx Instructions: As directed J P & O Lantus Solostar U-100 Insulin 100 unit/mL (3 mL) insulin pen 78 unit SUBCUT BID Qty: 15 3RF Rx Instructions: Inject 78 units twice a day. tizanidine 4 mg capsule 4 mg PO BID PRN (Reason: muscle spasticity) 7 Days Qty: 7 0RF digoxin 125 mcg (0.125 mg) tablet 125 mcg PO QAM pantoprazole 20 mg tablet,delayed release (DR/EC) 20 mg PO DAILY (DME) Diabetic shoes with 3 sets of insoles See Rx Instructions .Route .MEDSUPPLY Qty: 1 0RF Rx Instructions: As directed by SHELLI&O isosorbide mononitrate 60 mg tablet extended release 24 hr 60 mg PO DAILY Qty: 90 3RF amlodipine 10 mg tablet 10 mg PO DAILY Jardiance 25 mg tablet 25 mg PO DAILY (DME) Cam boot to right See Rx Instructions .Route .MEDSUPPLY Qty: 1 0RF Rx Instructions: As directed (DME) Diabetic High Top Velcro Tennis Shoes with Custom Molded Orthotics See Rx Instructions .Route .MEDSUPPLY Qty: 1 0RF Rx Instructions: As directed HOME hydralazine 50 mg tablet 50 mg PO BID Qty: 60 5RF (DME) cock up wrist splint See Rx Instructions .Route .MEDSUPPLY Qty: 1 0RF Rx Instructions: As directed metformin 1,000 mg tablet 1,000 mg PO BID Qty: 180 0RF Rx Instructions: Take one tablet by mouth twice a day. lisinopril 40 mg tablet 30 mg PO QAM aspirin 81 mg Tablet,Delayed Release (Dr/Ec) 81 mg PO QAM metoprolol tartrate 50 mg tablet 100 mg PO BID cetirizine 10 mg tablet 10 mg PO BID PRN (Reason: Allergic Symptoms) Novolog FlexPen U-100 Insulin 100 unit/mL (3 mL) insulin pen 15 unit SUBCUT TID Rx Instructions: Administer 15 units subcut three times a day before meals. atorvastatin 20 mg Tablet 20 mg PO QPM albuterol sulfate 90 mcg/actuation Hfa Aerosol Inhaler 2 puff INHALATION Q6H PRN (Reason: Shortness Of Breath) cholecalciferol (vitamin D3) [Vitamin D3] 25 mcg (1,000 unit) Tablet 25 mcg PO DAILY ketorolac 10 mg tablet 10 mg PO TID PRN (Reason: pain) Qty: 10 0RF Discharge Orders: Discharge ED (Routine); Ordered 03/04/23 Ordered By: Miquel Marlow Referrals: Toña Ivey, PASTEURIZING MACHINE OPERATOR [Primary Care Provider] - Patient Instructions: Opioid Safety, Pain Management Coding Level of Care Code ED Street Openings Inspector for Christin Chang
[2023-03-04 09:16] LABS: Alanine Aminotransferase 40 U/L (0-41); Alkaline Phosphatase 91 U/L (40-130); Anion Gap 14.4 (5-19); Aspartate Amino Transferase 30 U/L (0-40); Blood Urea Nitrogen 7 mg/dL (6-20); Calcium 9.2 mg/dL (8.5-10.5); Carbon Dioxide 26 mmol/L (22-29); Chloride 103 mmol/L (98-107); Globulin 2.9 g/dL (1.3-4.6); Glomerular Filtration Rate 105.5 mL/min (90-130); Glucose 233 mg/dL (65-115); Lipase 24 U/L (13-60); Osmolality Calculated 293 mOsm/kg (285-295); Potassium 4.4 mmol/L (3.5-5.1); Sodium 139 mmol/L (136-145); Total Bilirubin 0.5 mg/dL (0.15-1.2); Total Protein 6.9 g/dL (6.6-8.7)
[2023-03-04 09:17] LABS: Lactic Sepsis W/Reflex 1.7 mmol/L (0.5-2.2)
[2023-03-04 09:19] LABS: Ketone (Acetest) Serum Negative (Negative)
[2023-03-04 09:36] LABS: Bilirubin Urine Neg (Negative); Blood Urine Neg (Negative); Glucose Urine UA 1+ (Normal); Ketones Urine Negative (Negative); Leukocyte Esterase Urine Negative (Negative); Nitrate Urine Negative (Negative); Protein Urine 1+ (Negative); Specific Gravity, Urine 1.015 (1.005-1.030); Urine Appearance Hazy (CLEAR); Urine Color Yellow (Yellow); Urobilinogen Urine Norm (Negative); pH Urine 7 (5-7)
[2023-03-04 09:37] LABS: Add Urine Culture? No; Add Urine Microscopic? YES; Amorphous Sediment Urine 4+ /hpf; Bacteria Urine TRACE /hpf; RBC Urine 0-4 /hpf (0-2); Squamous Epithelial Cell Urine 0-4 /hpf (0-5); WBC Urine 0-4 /hpf (0-5)
--- NOTE | 2023-03-04 09:44 | PC.PHAR ---
waiting for [facility] med list to be faxed- pt sts he takes whatever is on the list
[2023-03-04 10:43] VITALS: BP 142/91; PULSE 67; RESP 15; O2SAT 99
[2023-03-04] MEDS: promethazine 25 mg/mL SDV 1 mL IM (10:44)
[2023-03-04 10:59] VITALS: BP 142/91; PULSE 67; RESP 15; O2SAT 99
== END 2023-03-04 11:00 | disposition home or self-care (01) ==
PROVIDERS: Emergency Provider Family Medicine; PCP Nurse Practitioner Family
DX: R11.2 Nausea with vomiting, unspecified (principal); T50.995A Adverse effect of other drugs, medicaments and biological substances, initial encounter; Z79.4 Long term (current) use of insulin; Z79.84 Long term (current) use of oral hypoglycemic drugs; Z79.82 Long term (current) use of aspirin; F17.290 Nicotine dependence, other tobacco product, uncomplicated; I10 Essential (primary) hypertension
CPT/HCPCS: 36415; 36600; 71045; 80051; 80053; 81001; 82009; 82330; 82805; 83605; 83690; 85025; 93005; 96361; 96372; 96374; 99285; J2405; J2550; J7030

== ENCOUNTER 2023-03-21 05:38 | Emergency (ER) | payer OTHER, SELFPAY ==
[2022-03-15 08:05] VITALS: BP 132/80; BMI 61.5
[2023-03-21 05:39] VITALS: BP 140/80; PULSE 76; RESP 20; TEMP 36.7; O2SAT 99; BMI 58.1
--- NOTE | 2023-03-21 05:40 | ECG_ITS ---
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 Measurements Intervals [place] Rate: 75 P: 52 FL: 230 QRS: 30 QRSD: 93 T: 12 QT: 377 QTc: 423 Interpretive Statements SINUS RHYTHM WITH FIRST DEGREE AV BLOCK LOW QRS VOLTAGE IN PRECORDIAL LEADS [QRS DEFLECTION < 1.0 mV IN CHEST LEADS] Compared to ECG 03/04/2023 08:49:38 No significant changes Electronically Signed On 03-22-2023 0:46:50 CDT by Mich Rivas M.D. [email or web address]
--- NOTE | 2023-03-21 05:43 | XRR_ITS ---
PROCEDURE INFORMATION: Exam: XR Chest Exam date and time: 03/21/2023 5:57 AM Age: 42 years old Clinical indication: Cough and shortness of breath; Sternal or substernal pain; Additional info: Dyspnea/cough TECHNIQUE: Imaging protocol: Radiologic exam of the chest. Views: 1 view. COMPARISON: CR XR chest 1V portable [id number] 03/04/2023 8:59 AM FINDINGS: Lungs: Unremarkable. No consolidation. Pleural spaces: Unremarkable. No pleural effusion. No pneumothorax. Heart/Mediastinum: Unremarkable. No cardiomegaly. Bones/joints: Unremarkable. XR/XR chest 1V portable [id number] IMPRESSION: No acute findings.
--- NOTE | 2023-03-21 05:45 | W.ED.CHESTPA ---
HPI - Chest Pain General: Chief Complaint: Chest Pain Stated Complaint: Cp Time Seen by Provider: 03/21/23 05:41 Source: patient Mode of arrival: ambulatory History of Present Illness: 42-year-old male presents emergency room complaining of chest pain via EMS. Chest pain began last night after he ate Serbian food does not radiate, no associated shortness of breath or diaphoresis. He took some Tums before he went to bed that seem to help and then worsened again this morning when he woke up around 430 its resolved at this time. EKG showed no changes serial cardiac enzymes are negative. Pain began again overnight. He has a history of SVT however his rate is controlled when he arrives here. Stress testing in January 2020 was negative. Patient is a diabetic. He was seen earlier this month with chest discomfort that seem to be more GI in nature. His symptoms resolved with thought it might be his Ozempic, decreasing it did seem to help. MD complaint: chest pain Onset (ago): hour(s) Timing of current episode: episodic Prior episodes: Yes Onset: during rest Pain location: substernal Pain radiation: none Relieving factors: nothing Exacerbating factors: nothing Associated symptoms: Reports leg edema and nausea; Deny abdominal pain, diaphoresis, dyspnea, fever(s), palpitations, sense of impending doom, syncope or vomiting Treatment prior to arrival: none Review of Systems Const: Denies: fever(s), chills or diaphoresis Card: Denies: chest pain, palpitations or syncope Resp: Denies: dyspnea GI: Reports: nausea; Denies: abdominal pain or vomiting : Denies: dysuria, urinary frequency or urinary urgency Musc: Denies: neck pain or back pain Skin/Breast: Denies: rash PFSH ED PFSH: Medical History (Updated 03/21/23 @ 09:14 by Miquel Marlow DO) Alcohol dependence, in remission Benign essential HTN Binge eating disorder Bipolar disorder, in partial remission, most recent episode manic Diabetic peripheral neuropathy associated with type 2 diabetes mellitus DM type 2 (diabetes mellitus, type 2) GERD (gastroesophageal reflux disease) Hx MRSA infection Morbid obesity Nephrolithiasis Nephropathy Obstructive sleep apnea Posttraumatic stress disorder Supraventricular tachycardia Tinea cruris Surgical History H/O oral surgery History of ankle surgery S/P adenoidectomy S/P cholecystectomy S/P hernia repair S/P knee surgery S/P myringotomy with insertion of tube S/P tendon repair S/P vasectomy Family History Other Adopted Social History Smoking and tobacco/nicotine status: current every day tobacco/nicotine user e-cigarettes E-Cigarette Details: vaporizer device and without nicotine Alcohol intake: former Year of sobriety/quit date alcohol: 11mo Substance/Drug Use: current Other substance/drug use details: CBD Adopted: Yes Caregiver/support person: No Lives independently: Yes Household members: spouse Housing: Apartment Marital status: Number of children: 2 Highest education level completed: Some College, No Degree service: Yes status: Medically Discharged/Retired branch: [employer] Current occupational status: disabled Pets and animals: Yes Pets & animals: dog(s) Leisure activites: games Sexually active: Yes Do you think of yourself as: Straight/Heterosexual Current gender identity: Male Leda/Voodoo: None Special leda needs: No Agree to transfusion: Yes Physical Exam Const: COMMON NORMALS: no acute distress GENERAL APPEARANCE: cooperative and comfortable NUTRITIONAL APPEARANCE: obese morbidly obese (BMI 58) ORIENTATION/CONSCIOUSNESS: Yes awake, Yes oriented to person, Yes oriented to place and Yes oriented to time HENMT: COMMON NORMALS: normocephalic, atraumatic and hearing grossly normal bilaterally HEAD & SCALP: normocephalic and atraumatic Resp: COMMON NORMALS: normal respiratory effort, No retractions, No use of accessory muscles and clear to auscultation bilaterally AUSCULTATION: clear to auscultation bilaterally Cardio: COMMON NORMALS: regular rate, regular rhythm and No murmurs present (Cardio) RATE: regular rate RHYTHM: regular rhythm GI: COMMON NORMALS: Soft to palpation and No hepatosplenomegaly present AUSCULTATION: Yes normoactive bowel sounds PALPATION: Yes Soft to palpation, No Tenderness to palpation present (GI), No Guarding due to palpation present (GI) and Yes No hepatosplenomegaly present Extremity: COMMON NORMALS: normal to inspection, capillary refill normal, no clubbing, cyanosis or edema, no calf tenderness and no pedal edema Neuro: SENSORIUM/ORIENTATION: Yes oriented to person, Yes oriented to place and Yes oriented to time Skin: COMMON NORMALS: no rashes or lesions noted GENERAL SKIN EXAM: no rashes or lesions noted Course Vital Signs: Vital signs: Vital Signs Temperature 98.1 F 03/21/23 05:39 Pulse Rate 76 03/21/23 05:39 Respiratory Rate 20 H 03/21/23 05:39 Blood Pressure 140/80 03/21/23 05:39 Pulse Oximetry 98 03/21/23 05:50 MDM - Chest Pain Medical Decision Making EKG does not show any acute ST changes reviewed as found in the chart. Troponins did not show any significant elevation. Suspect this may still be related to the Ozempic is taking a reduced dose. He is feeling somewhat better now we will discharge him home recommend he stop the Ozempic completely start Reglan to use as needed follow-up with his primary care doctor we will set him up for an outpatient graded exercise stress test. Medical Records I reviewed the patient's medical records. Lab Data I reviewed the patient's lab results. 03/21/23 05:41 03/21/23 05:41 Radiology Impressions Chest X-Ray 03/21/23 05:43 IMPRESSION: No acute findings. Laboratory Results WBC 8.85 10^3/uL (3.29-11.43) 03/21/23 05:41 RBC 5.57 10^6/uL (3.85-5.65) 03/21/23 05:41 Hgb 15.10 g/dL (11.27-16.99) 03/21/23 05:41 Hct 45.5 % (37-53) 03/21/23 05:41 MCV 81.7 fl (82-101) L 03/21/23 05:41 MCH 27.1 pg (27-33) 03/21/23 05:41 MCHC 33.2 g/dL (30-55) 03/21/23 05:41 RDW 13.2 % (12.1-15.1) 03/21/23 05:41 Plt Count 317 10^3/cmm (157-399) 03/21/23 05:41 MPV 9.8 fL (7.4-10.4) 03/21/23 05:41 Neut % (Auto) 55.6 % 03/21/23 05:41 Lymph % (Auto) 29.0 % 03/21/23 05:41 [place] % (Auto) 8.0 % 03/21/23 05:41 Eos % (Auto) 6.0 % 03/21/23 05:41 Baso % (Auto) 0.9 % 03/21/23 05:41 Neut # (Auto) 4.92 10^3/uL (1.8-7.7) 03/21/23 05:41 Lymph # (Auto) 2.6 10^3/uL (0.8-4.8) 03/21/23 05:41 [place] # (Auto) 0.7 10^3/uL (0.2-0.9) 03/21/23 05:41 Eos # (Auto) 0.5 10^3/uL (0.0-0.8) 03/21/23 05:41 Baso # (Auto) 0.1 10^3/uL (0.0-0.1) 03/21/23 05:41 Nucleated RBC % (auto) 0 % 03/21/23 05:41 Nucleated RBCs # 0.0 /100WBC 03/21/23 05:41 D-Dimer 0.45 ug/mLFEU (0-0.59) 03/21/23 05:41 Sodium 139 mmol/L (136-145) 03/21/23 05:41 Potassium 4.2 mmol/L (3.5-5.1) 03/21/23 05:41 Chloride 100 mmol/L (98-107) 03/21/23 05:41 Carbon Dioxide 26 mmol/L (22-29) 03/21/23 05:41 Anion Gap 17.2 (5-19) 03/21/23 05:41 BUN 9 mg/dL (6-20) 03/21/23 05:41 Creatinine 0.7 mg/dL (0.7-1.2) 03/21/23 05:41 GFR Calculation 123.1 mL/min (90-130) 03/21/23 05:41 Glucose 251 mg/dL (65-115) H 03/21/23 05:41 Calculated Osmolality 295 mOsm/kg (285-295) 03/21/23 05:41 Calcium 9.2 mg/dL (8.5-10.5) 03/21/23 05:41 Total Bilirubin 0.5 mg/dL (0.15-1.2) 03/21/23 05:41 AST 24 U/L (0-40) 03/21/23 05:41 ALT 37 U/L (0-41) 03/21/23 05:41 Alkaline Phosphatase 96 U/L (40-130) 03/21/23 05:41 Troponin T Baseline 8 ng/L (0-15) 03/21/23 05:41 Troponin T 120 Minute 7.14 ng/L (0-15) 03/21/23 07:29 Delta Troponin T -0.86 ABS# (0-10) L 03/21/23 07:29 Total Protein 6.9 g/dL (6.6-8.7) 03/21/23 05:41 Albumin 4.2 g/dL (3.5-5.2) 03/21/23 05:41 Globulin 2.7 g/dL (1.3-4.6) 03/21/23 05:41 All radiology interpretation(s) finalized by discharge Discharge Plan Discharge Patient Disposition: Home Clinical Impression: Atypical chest pain, Diabetic gastroparesis, Medication side effect Condition: Stable Prescriptions: New Reglan 10 mg tablet 10 mg PO Q6H PRN (Reason: nausea and vomiting) Qty: 30 0RF No Action (DME) Custom Molded Orthotics See Rx Instructions .Route .MEDSUPPLY Qty: 1 0RF Rx Instructions: As directed J P & O [place] U-100 Insulin 100 unit/mL (3 mL) insulin pen 78 unit SUBCUT BID Qty: 15 3RF Rx Instructions: Inject 78 units twice a day. tizanidine 4 mg capsule 4 mg PO BID PRN (Reason: muscle spasticity) 7 Days Qty: 7 0RF digoxin 125 mcg (0.125 mg) tablet 125 mcg PO QAM pantoprazole 20 mg tablet,delayed release (DR/EC) 20 mg PO DAILY (DME) Diabetic shoes with 3 sets of insoles See Rx Instructions .Route .MEDSUPPLY Qty: 1 0RF Rx Instructions: As directed by SHELLI&O isosorbide mononitrate 60 mg tablet extended release 24 hr 60 mg PO DAILY Qty: 90 3RF amlodipine 10 mg tablet 10 mg PO DAILY Jardiance 25 mg tablet 25 mg PO DAILY (DME) Cam boot to right See Rx Instructions .Route .MEDSUPPLY Qty: 1 0RF Rx Instructions: As directed (DME) Diabetic High Top Velcro Tennis Shoes with Custom Molded Orthotics See Rx Instructions .Route .MEDSUPPLY Qty: 1 0RF Rx Instructions: As directed HOME hydralazine 50 mg tablet 50 mg PO BID Qty: 60 5RF (DME) cock up wrist splint See Rx Instructions .Route .MEDSUPPLY Qty: 1 0RF Rx Instructions: As directed metformin 1,000 mg tablet 1,000 mg PO BID Qty: 180 0RF Rx Instructions: Take one tablet by mouth twice a day. lisinopril 40 mg tablet 30 mg PO QAM aspirin 81 mg Tablet,Delayed Release (Dr/Ec) 81 mg PO QAM metoprolol tartrate 50 mg tablet 100 mg PO BID cetirizine 10 mg tablet 10 mg PO BID PRN (Reason: Allergic Symptoms) Novolog FlexPen U-100 Insulin 100 unit/mL (3 mL) insulin pen 15 unit SUBCUT TID Rx Instructions: Administer 15 units subcut three times a day before meals. promethazine 25 mg tablet 25 mg PO Q6H PRN (Reason: nausea and vomiting) Qty: 20 0RF atorvastatin 20 mg Tablet 20 mg PO QPM albuterol sulfate 90 mcg/actuation Hfa Aerosol Inhaler 2 puff INHALATION Q6H PRN (Reason: Shortness Of Breath) cholecalciferol (vitamin D3) [Vitamin D3] 25 mcg (1,000 unit) Tablet 25 mcg PO DAILY ketorolac 10 mg tablet 10 mg PO TID PRN (Reason: pain) Qty: 10 0RF Discharge Orders: Discharge ED (Routine); Ordered 03/21/23 Ordered By: Miquel Marlow Referrals: Toña Ivey, ASSOCIATE PROFESSOR OF BIBLICAL STUDIES [Primary Care Provider] - Patient Instructions: Opioid Safety, Pain Management Coding Level of Care Code ED Dba Developer for Christin Chang
[2023-03-21 05:50] VITALS: O2SAT 98
[2023-03-21] MEDS: lidocaine 2% viscous 15 ML, aluminum-mag hydrox-simethicon 30 ML, sucralfate oral liq 1 GM PO (05:55)
[2023-03-21] MEDS: metoclopramide 5 mg/mL SDV 2 mL 10 MG IVP (05:58)
[2023-03-21 06:07] LABS: Basophils # 0.1 10^3/uL (0.0-0.1); Basophils % 0.9 %; D Dimer 0.45 ug/mLFEU (0-0.59); Eosinophils # 0.5 10^3/uL (0.0-0.8); Hematocrit 45.5 % (37-53); Lymphocytes # 2.6 10^3/uL (0.8-4.8); Mean Corpuscular HGB Conc 33.2 g/dL (30-55); Mean Corpuscular Hemoglobin 27.1 pg (27-33); Mean Corpuscular Volume 81.7 fl (82-101); Mean Platelet Volume 9.8 fL (7.4-10.4); Monocytes # 0.7 10^3/uL (0.2-0.9); Neutrophils # 4.92 10^3/uL (1.8-7.7); Neutrophils % 55.6 %; Nucleated Red Blood Cells % 0 %; Platelet Count 317 10^3/cmm (157-399); Red Blood Count 5.57 10^6/uL (3.85-5.65); Red Cell Distribution Width 13.2 % (12.1-15.1); White Blood Count 8.85 10^3/uL (3.29-11.43)
[2023-03-21 06:12] LABS: Troponin(5th) Baseline 8 ng/L (0-15)
[2023-03-21 06:17] LABS: Alanine Aminotransferase 37 U/L (0-41); Albumin Level 4.2 g/dL (3.5-5.2); Alkaline Phosphatase 96 U/L (40-130); Anion Gap 17.2 (5-19); Aspartate Amino Transferase 24 U/L (0-40); Blood Urea Nitrogen 9 mg/dL (6-20); Calcium 9.2 mg/dL (8.5-10.5); Carbon Dioxide 26 mmol/L (22-29); Chloride 100 mmol/L (98-107); Globulin 2.7 g/dL (1.3-4.6); Glomerular Filtration Rate 123.1 mL/min (90-130); Glucose 251 mg/dL (65-115); Osmolality Calculated 295 mOsm/kg (285-295); Potassium 4.2 mmol/L (3.5-5.1); Sodium 139 mmol/L (136-145); Total Bilirubin 0.5 mg/dL (0.15-1.2); Total Protein 6.9 g/dL (6.6-8.7)
--- NOTE | 2023-03-21 07:20 | ECG_ITS ---
[facility] Test Date: 2023-03-21 Pat Name: Tyree Buckley Department: Room: Gender: Male Canvas Baster: : 1980 Requested By: Miquel Aragon Order Number: [id number] Hermes MD: Mich Rivas M.D. Measurements Intervals [place] Rate: 75 P: 57 LA: 223 QRS: 39 QRSD: 89 T: 14 QT: 388 QTc: 435 Interpretive Statements SINUS RHYTHM WITH FIRST DEGREE AV BLOCK Compared to ECG 03/21/2023 05:40:38 No significant changes Electronically Signed On 03-22-2023 1:30:21 CDT by Mich Rivas M.D. [email or web address]
[2023-03-21 07:54] LABS: Troponin 5 2HR 7.14 ng/L (0-15)
[2023-03-21 07:55] LABS: Troponin 5 2HR Delta -0.86 ABS# (0-10)
--- NOTE | 2023-03-22 17:57 | DCPLANNER ---
I sent a referral to heart care service since patient has [employer] insurance for the graded exercise stress test. Heart care will contact patient to see if this test is needed so that the [facility] insurance will pay.
== END 2023-03-21 09:37 | disposition home or self-care (01) ==
PROVIDERS: Emergency Provider Family Medicine; PCP Nurse Practitioner Family
DX: R07.89 Other chest pain (principal); E11.43 Type 2 diabetes mellitus with diabetic autonomic (poly)neuropathy; K31.84 Gastroparesis; T50.995A Adverse effect of other drugs, medicaments and biological substances, initial encounter; Z79.4 Long term (current) use of insulin; Z79.84 Long term (current) use of oral hypoglycemic drugs; Z79.82 Long term (current) use of aspirin; F17.290 Nicotine dependence, other tobacco product, uncomplicated; I10 Essential (primary) hypertension; E11.42 Type 2 diabetes mellitus with diabetic polyneuropathy
CPT/HCPCS: 36415; 71045; 80053; 84484; 85025; 85378; 93005; 96374; 99284; J2765

== ENCOUNTER 2023-03-22 07:35 | Outpatient (CLI) | payer OTHER, MEDICAID, SELFPAY ==
[2022-03-15 08:05] VITALS: BP 132/80; BMI 61.5
--- NOTE | 2023-03-22 08:00 | USCV_ITS ---
Tyree Buckley Age: 42 Gender: M : 1980 Exam Date: 03/22/2023 08:24 Ordering Phys: Manda Raza MD Technologist: Giselle Reynaga [place] [facility] [place]ication: cardiomyopathy BP: 181 / 87 HR: 71 Rhythm: Sinus Technical Quality: MEASUREMENTS (Male / Female) Normal Values 2D ECHO LV Diastolic Diameter PLAX 4.4 cm 4.2 - 5.9 / 3.9 - 5.3 cm LV Systolic Diameter PLAX 2.1 cm IVS Diastolic Thickness 1.5 cm 0.6 - 1.0 / 0.6 - 0.9 cm IVS Systolic Thickness 1.7 cm LVPW Diastolic Thickness 1.0 cm 0.6 - 1.0 / 0.6 - 0.9 cm LVPW Systolic Thickness 2.4 cm LVOT Diameter 2.1 cm LV Ejection Fraction 2D Teich 83.0 % LV Ejection Fraction MOD 2C 44.3 % LV Ejection Fraction 2C AL 47.6 % LA Diameter 3.7 cm LA Width 3.8 cm LA Height 5.4 cm RA Width 4.7 cm RA Height 5.6 cm Aorta at Sinotubular Diameter 3.2 cm IVC Diameter 1.8 cm M-MODE Aortic Annulus Diameter 2.7 cm LA Ao Ratio MM 1.5 MV E Point Septal Separation 0.2 cm DOPPLER AV Peak Velocity 126.0 cm/s LVOT Peak Velocity 67.0 cm/s AV Area Cont Eq vti 2.5 cm squared AV Area Cont Eq pk 1.8 cm squared MV Peak Velocity 91.0 cm/s MV Area PHT 4.4 cm squared Mitral E to A Ratio 1.6 MV E' Velocity 45.0 cm/s Mitral E to MV E' Ratio 6.8 Mitral E to LV E' Lateral Ratio 7.2 Mitral E to LV E' Septal Ratio 6.5 TR Peak Velocity 70.7 cm/s TR Peak Gradient 2.0 mmHg Right Atrial Pressure 5.0 mmHg Pulmonary Artery Systolic Pressu 7.0 mmHg PV Peak Velocity 153.0 cm/s RV Acceleration Time 0.1 s RV Ejection Time 0.4 s RV AcT/ET 0.4 FINDINGS Left Ventricle Normal LV size with the possibly normal ejection fraction of 55%. No gross wall motion normalities noted Right Ventricle The right ventricle is normal in size and function. Right Atrium The right atrium is normal in size. Left Atrium Mildly dilated left atrium Mitral Valve No gross abnormalities noted Aortic Valve No gross abnormalities noted Tricuspid Valve No gross abnormalities noted Pulmonic Valve No gross abnormalities noted Pericardium Normal pericardium without effusion. Aorta Normal ascending aorta dimension. IVC The inferior vena cava appears normal. CONCLUSIONS Normal LV size with the possibly normal ejection fraction of 55%. No gross wall motion abnormalities noted. Mildly dilated left atrium There is no pericardial effusion. There are no intracardiac masses. Compared to the previous study from 09/29/2018, there may not be a significant change Dr Mich Rivas MD FACC (Electronically Signed) Final Date: 22 March 2023 12:49 S
== END 2023-03-22 07:36 | disposition home or self-care (01) ==
PROVIDERS: PCP Nurse Practitioner Family; Visit Provider Family Medicine
DX: I42.9 Cardiomyopathy, unspecified (principal); I51.7 Cardiomegaly
CPT/HCPCS: 93306

== ENCOUNTER → 2023-04-02 08:48 | Outpatient (BNVA) | payer MEDICAID, SELFPAY ==
[2022-03-15 08:05] VITALS: BP 132/80; BMI 61.5
== END ==
PROVIDERS: PCP Nurse Practitioner Family; Referring Provider Family Medicine; Visit Provider Nurse Practitioner Family
DX: I10 Essential (primary) hypertension (principal); R07.89 Other chest pain
CPT/HCPCS: 99214

== ENCOUNTER 2023-04-03 18:56 | Emergency (ER) | payer OTHER, SELFPAY ==
[2022-03-15 08:05] VITALS: BP 132/80; BMI 61.5
[2023-04-03 18:59] VITALS: BP 177/116; PULSE 102; RESP 18; TEMP 36.8; O2SAT 96; BMI 58.1
--- NOTE | 2023-04-03 20:15 | W.ED.WOUNDLC ---
HPI - Wound/Laceration General: Chief Complaint: Wound/Laceration Stated Complaint: Stitches Trying to Come Out Time Seen by Provider: 04/03/23 20:09 Source: patient Mode of arrival: ambulatory Limitations: no limitations History of Present Illness: 42-year-old male with a head surgery last week on his left thumb he had a tendon release for decor veins he had this done at [facility] states he is concerned because he had felt like a string was loose on the suture he denies any redness denies any bleeding denies any pain just when have the suture check. Associated symptoms: Denies chills, fever(s), nausea or vomiting Review of Systems Const: Denies: fever(s), chills, body aches or change in appetite ENMT: Denies: throat pain or dental pain Card: Denies: chest pain Resp: Denies: dyspnea GI: Denies: abdominal pain, nausea, vomiting or diarrhea Musc: Denies: neck pain or back pain Skin/Breast: Denies: rash Neuro: Denies: headache(s) PFSH ED PFSH: Medical History Alcohol dependence, in remission Benign essential HTN Binge eating disorder Bipolar disorder, in partial remission, most recent episode manic Diabetic peripheral neuropathy associated with type 2 diabetes mellitus DM type 2 (diabetes mellitus, type 2) GERD (gastroesophageal reflux disease) Hx MRSA infection Morbid obesity Nephrolithiasis Nephropathy Obstructive sleep apnea Posttraumatic stress disorder Supraventricular tachycardia Tinea cruris Surgical History H/O oral surgery History of ankle surgery S/P adenoidectomy S/P cholecystectomy S/P hernia repair S/P knee surgery S/P myringotomy with insertion of tube S/P tendon repair S/P vasectomy Family History Other Adopted Social History Smoking and tobacco/nicotine status: current every day tobacco/nicotine user e-cigarettes E-Cigarette Details: vaporizer device and without nicotine Alcohol intake: former Year of sobriety/quit date alcohol: 11mo Substance/Drug Use: current Other substance/drug use details: CBD Adopted: Yes Caregiver/support person: No Lives independently: Yes Household members: spouse Housing: Apartment Marital status: Number of children: 2 Highest education level completed: Some College, No Degree service: Yes status: Medically Discharged/Retired branch: [employer] Current occupational status: disabled Pets and animals: Yes Pets & animals: dog(s) Leisure activites: games Sexually active: Yes Do you think of yourself as: Straight/Heterosexual Current gender identity: Male Leda/Anglican: None Special leda needs: No Agree to transfusion: Yes Physical Exam Const: COMMON NORMALS: no acute distress and patient oriented x3 HENMT: COMMON NORMALS: normocephalic and atraumatic HEAD & SCALP: normocephalic and atraumatic Neck/C-Spine: COMMON NORMALS: supple Chest: COMMONS NORMALS: normal inspection of the chest Resp: COMMON NORMALS: normal respiratory effort Extremity: OTHER: Sutures in place to left wrist no bleeding no redness wound is well-appearing Neuro: COMMON NORMALS: patient oriented x3 Psych: COMMON NORMALS: mental status grossly normal Skin: COMMON NORMALS: no rashes or lesions noted GENERAL SKIN EXAM: no rashes or lesions noted Course Vital Signs: Vital signs: Vital Signs Temperature 98.2 F 04/03/23 20:27 Pulse Rate 102 H 04/03/23 20:27 Respiratory Rate 18 04/03/23 20:27 Blood Pressure 177/116 04/03/23 20:27 Pulse Oximetry 96 04/03/23 20:27 Oxygen Delivery Me thod Room Air 04/03/23 18:59 MDM - Wound/Laceration Medical Decision Making Patient presents with wound check his sutures are in place wounds well-appearing he is stable for discharge at this time he is to follow-up next week as scheduled with his hand surgeon No radiology studies performed this visit Discharge Plan Discharge Patient Disposition: Home Clinical Impression: Visit for wound check Condition: Stable Prescriptions: No Action (DME) Custom Molded Orthotics See Rx Instructions .Route .MEDSUPPLY Qty: 1 0RF Rx Instructions: As directed [facility] P [employer] O Lantus Solostar U-100 Insulin 100 unit/mL (3 mL) insulin pen 78 unit SUBCUT BID Qty: 15 3RF Rx Instructions: Inject 78 units twice a day. tizanidine 4 mg capsule 4 mg PO BID PRN (Reason: muscle spasticity) 7 Days Qty: 7 0RF digoxin 125 mcg (0.125 mg) tablet 125 mcg PO QAM pantoprazole 20 mg tablet,delayed release (DR/EC) 20 mg PO DAILY (DME) Diabetic shoes with 3 sets of insoles See Rx Instructions .Route .MEDSUPPLY Qty: 1 0RF Rx Instructions: As directed by [facility] isosorbide mononitrate 60 mg tablet extended release 24 hr 60 mg PO DAILY Qty: 90 3RF amlodipine 10 mg tablet 10 mg PO DAILY Jardiance 25 mg tablet 25 mg PO DAILY (DME) Cam boot to right See Rx Instructions .Route .MEDSUPPLY Qty: 1 0RF Rx Instructions: As directed ([facility] [place]) Diabetic High Top Velcro Tennis Shoes with Custom Molded Orthotics See Rx Instructions .Route .MEDSUPPLY Qty: 1 0RF Rx Instructions: As directed HOME hydralazine 50 mg tablet 50 mg PO BID Qty: 60 5RF (DME) cock up wrist splint See Rx Instructions .Route .MEDSUPPLY Qty: 1 0RF Rx Instructions: As directed metformin 1,000 mg tablet 1,000 mg PO BID Qty: 180 0RF Rx Instructions: Take one tablet by mouth twice a day. lisinopril 40 mg tablet 30 mg PO QAM aspirin 81 mg Tablet,Delayed Release (Dr/Ec) 81 mg PO QAM metoprolol tartrate 50 mg tablet 100 mg PO BID cetirizine 10 mg tablet 10 mg PO BID PRN (Reason: Allergic Symptoms) Novolog FlexPen U-100 Insulin 100 unit/mL (3 mL) insulin pen 15 unit SUBCUT TID Rx Instructions: Administer 15 units subcut three times a day before meals. promethazine 25 mg tablet 25 mg PO Q6H PRN (Reason: nausea and vomiting) Qty: 20 0RF Reglan 10 mg tablet 10 mg PO Q6H PRN (Reason: nausea and vomiting) Qty: 30 0RF atorvastatin 20 mg Tablet 20 mg PO QPM albuterol sulfate 90 mcg/actuation Hfa Aerosol Inhaler 2 puff INHALATION Q6H PRN (Reason: Shortness Of Breath) cholecalciferol (vitamin D3) [Vitamin D3] 25 mcg (1,000 unit) Tablet 25 mcg PO DAILY ketorolac 10 mg tablet 10 mg PO TID PRN (Reason: pain) Qty: 10 0RF Discharge Orders: Discharge ED (Routine); Ordered 04/03/23 Ordered By: Nancy Vance Referrals: Toañ Ivey MEDICAL PHYSICS RESEARCHER [Primary Care Provider] - 1-3 days Discharge Diet: Advance as tolerated Discharge Activity: Resume usual activity Patient Instructions: Care For Your Stitches (ED) Coding Level of Care Code ED Medical Billing Associate for Crhistin Chang
[2023-04-03 20:27] VITALS: BP 177/116; PULSE 102; RESP 18; TEMP 36.8; O2SAT 96
== END 2023-04-03 20:28 | disposition home or self-care (01) ==
PROVIDERS: Emergency Provider Emergency Medicine; PCP Nurse Practitioner Family
DX: Z48.01 Encounter for change or removal of surgical wound dressing (principal); Z79.82 Long term (current) use of aspirin; Z79.4 Long term (current) use of insulin; Z79.84 Long term (current) use of oral hypoglycemic drugs; Z98.890 Other specified postprocedural states; F17.290 Nicotine dependence, other tobacco product, uncomplicated; I10 Essential (primary) hypertension; E11.42 Type 2 diabetes mellitus with diabetic polyneuropathy
CPT/HCPCS: 99281

== ENCOUNTER → 2023-04-09 12:44 | Outpatient (BNVA) | payer OTHER, MEDICAID, SELFPAY ==
[2022-03-15 08:05] VITALS: BP 132/80; BMI 61.5
== END ==
PROVIDERS: PCP Nurse Practitioner Family; Visit Provider Student in an Organized Health Care Education/Training Program
DX: M17.11 Unilateral primary osteoarthritis, right knee (principal); M65.342 Trigger finger, left ring finger
CPT/HCPCS: 20550; 20610; 73560; 73565; 99214; J3301; J3490

== ENCOUNTER → 2023-04-30 08:00 | Outpatient (BNVA) | payer OTHER, SELFPAY ==
[2022-03-15 08:05] VITALS: BP 132/80; BMI 61.5
== END ==
PROVIDERS: PCP Nurse Practitioner Family; Visit Provider Podiatrist Foot & Ankle Surgery
DX: E11.8 Type 2 diabetes mellitus with unspecified complications (principal); E11.42 Type 2 diabetes mellitus with diabetic polyneuropathy; L60.3 Nail dystrophy; Z79.4 Long term (current) use of insulin; Z79.84 Long term (current) use of oral hypoglycemic drugs
CPT/HCPCS: 11721

== ENCOUNTER → 2023-07-02 13:07 | Outpatient (BNVA) | payer OTHER, SELFPAY ==
[2022-03-15 08:05] VITALS: BP 132/80; BMI 61.5
== END ==
PROVIDERS: PCP Nurse Practitioner Family; Referring Provider Nurse Practitioner Family; Visit Provider Podiatrist Foot & Ankle Surgery
DX: E11.42 Type 2 diabetes mellitus with diabetic polyneuropathy; M21.41 Flat foot [pes planus] (acquired), right foot; M21.42 Flat foot [pes planus] (acquired), left foot; M76.71 Peroneal tendinitis, right leg; Z79.84 Long term (current) use of oral hypoglycemic drugs; Z79.4 Long term (current) use of insulin
CPT/HCPCS: 99213

== ENCOUNTER 2023-07-04 10:59 | Outpatient (CLI) | payer MEDICAID, SELFPAY ==
[2022-03-15 08:05] VITALS: BP 132/80; BMI 61.5
--- NOTE | 2023-07-04 11:34 | FL_ITS ---
WS: [id number] Modified barium swallow, 07/04/2023 Clinical Data: Oral dysphagia Comparison: None. Fluoroscopy time: 1min [id number] # of spot films: 1 Findings: The patient had difficulty with oral preparation. There was oral residue which did clear with multipl e swallows. There was premature spillage. There was residual barium on the vallecula and piriform sin uses but they cleared with swallowing. There was no aspiration or penetration. The barium tablet was only visualized in the oropharynx and hypopharynx but the limits of the equipment did not allow visu alization in the esophagus or stomach. Impression: 1. Difficulty with oral preparation and premature spillage but residue cleaned with multiple swallows . 2. Residual barium in the vallecula and piriform sinuses cleared with swallowing. 3. Negative for aspiration or penetration.
== END 2023-07-04 11:00 | disposition home or self-care (01) ==
LOC: RAD 11:00
PROVIDERS: PCP Nurse Practitioner Family; Visit Provider Family Medicine
DX: R13.11 Dysphagia, oral phase (principal)
CPT/HCPCS: 74230; 92611

== ENCOUNTER → 2023-07-23 09:05 | Outpatient (BNVA) | payer MEDICAID, SELFPAY ==
[2022-03-15 08:05] VITALS: BP 132/80; BMI 61.5
== END ==
PROVIDERS: PCP Family Medicine; Visit Provider Nurse Practitioner Family
DX: I10 Essential (primary) hypertension (principal); I47.10 Supraventricular tachycardia, unspecified; M17.11 Unilateral primary osteoarthritis, right knee; M65.342 Trigger finger, left ring finger; M23.306 Other meniscus derangements, unspecified meniscus, right knee
CPT/HCPCS: 99213; 99214

== ENCOUNTER → 2023-07-25 08:37 | Outpatient (BNVA) | payer MEDICAID, SELFPAY ==
[2022-03-15 08:05] VITALS: BP 132/80; BMI 61.5
== END ==
PROVIDERS: PCP Family Medicine; Referring Provider Family Medicine; Visit Provider Surgery
DX: R13.10 Dysphagia, unspecified (principal); R10.9 Unspecified abdominal pain; K21.9 Gastro-esophageal reflux disease without esophagitis
CPT/HCPCS: 99204

== ENCOUNTER 2023-08-09 07:02 | Outpatient (CLI) | payer OTHER, SELFPAY ==
[2022-03-15 08:05] VITALS: BP 132/80; BMI 61.5
--- NOTE | 2023-08-09 07:15 | MR_ITS ---
WS: [id number] MRI RIGHT KNEE HISTORY: KNEE PAIN COMPARISON: 11/17/2014 Anterior cruciate ligament: Intact. Posterior cruciate ligament: Intact. Medial collateral ligament: Intact. Posterior lateral corner structures: Intact. Medial menisci: Abnormal signal involving a large portion of the posterior horn. Does appear to be a radial tear towards the free edge and additional increased signal toward the mid and posterior body e xtending to the super articular surface. Anterior horn is partially subluxed. Lateral meniscus: Intact. Normal signal, size and shape. Extensor mechanism: Distal quadriceps tendon and patellar tendons are intact. Fluid and soft tissue: Very small suprapatellar joint effusion. No Payne's cyst. Osseous and articular structures: Patellofemoral compartment: Normal position of the patella. Mild chondromalacia along the patellar em inence and medial patellar facet. Medial compartment: Moderate narrowing with small marginal osteophytes. Moderate diffuse chondromalac ia. Greater involvement of the cartilage along the weightbearing surface of the femoral condyle. Lateral compartment: Mild narrowing of the lateral compartment with mild chondromalacia. Small subcho ndral cyst lateral tibial plateau. IMPRESSION: 1. The study is compromised by body habitus. 2. Radial tear posterior horn medial meniscus with additional increasing signal throughout the anthropology instructor ior horn extending to the super articular surface. 3. Anterior horn of the medial meniscus is partially extruded from the joint line. 4. No ACL tear. 5. Mild chondromalacia of the patellar eminence and medial patellar facet. 6. Moderate narrowing medial compartment with marginal osteophytes and moderate diffuse chondromalaci a. 7. Mild narrowing of the lateral compartment with mild chondromalacia.
== END 2023-08-09 07:03 | disposition home or self-care (01) ==
LOC: RAD 07:03
PROVIDERS: PCP Family Medicine; Visit Provider Student in an Organized Health Care Education/Training Program
DX: S83.241A Other tear of medial meniscus, current injury, right knee, initial encounter (principal); X58.XXXA Exposure to other specified factors, initial encounter; M22.41 Chondromalacia patellae, right knee; M25.761 Osteophyte, right knee
CPT/HCPCS: 73721

== ENCOUNTER → 2023-08-15 07:40 | Outpatient (BNVA) | payer OTHER, SELFPAY ==
[2022-03-15 08:05] VITALS: BP 132/80; BMI 61.5
== END ==
PROVIDERS: PCP Family Medicine; Visit Provider Physician Assistant
DX: M17.11 Unilateral primary osteoarthritis, right knee; S83.241A Other tear of medial meniscus, current injury, right knee, initial encounter; X58.XXXA Exposure to other specified factors, initial encounter
CPT/HCPCS: 20610; 99213; J7318

== ENCOUNTER 2023-08-28 09:33 | Day surgery (SDC) | payer MEDICAID, SELFPAY ==
[2022-03-15 08:05] VITALS: BP 132/80; BMI 61.5
[2023-08-28 10:01] VITALS: BP 189/106; PULSE 74; RESP 18; TEMP 36.5; O2SAT 97; BMI 58.9
[2023-08-28] MEDS: sodium chloride 0.9% 1,000 ML 30 ML IV (10:24)
[2023-08-28 10:26] LABS: Glucose Point of Care 199 mg/dL (70-110)
--- NOTE | 2023-08-28 10:27 | ANES.PREANE2 ---
Pre-Anesthetic Assessment Height/Weight: Height 1.78 m Weight 186.426 kg Temp Pulse Resp BP Pulse Ox O2 Del Method 97.7 F 74 18 189/106 97 Room Air 08/28/23 10:08/28/23 10:08/28/23 10:08/28/23 10:01 08/28/23 10:08/28/23 10:01 Preop Diagnosis: Gerd, Dysphagia, Abdominal Pain. Operation Date: 08/28/23 11:00 Proposed Procedures p 85889 egd w/ balloon dial 97572 colonoscopy G0105 screen colon h risk K21.9,R10.9,R13.10(Not Applicable) - Onur Scott DO s Colonoscopy(Not Applicable) - Onur Scott DO Last intake: Intake Last Liquid Date 08/27/23 Last Liquid Time 21:30 Last Solid Date 08/26/23 Last Solid Time 21:00 Social Tobacco (denies vaping today.) and No alcohol (sober 2 years) Exam alert, oriented x 3, clear to auscultation bilaterally and regular rate & rhythm Airway Submandibular: within normal limits Cervical ROM: within normal limits Mallampati: Class II Dentition: chipped and loose Comments: Comments: extremely poor dentition multiple missing and chipped visible tooth decay. Pulmonary Asthma (exercise induced per patient) and Sleep Apnea (CPAP compliant) CV/HEM Arrythmia (PSVT last episode greater than a year per patient) and Hypertension None reported Hepatic Fatty Liver GI Gastroesophageal Reflux Disease Metabolic Diabetes Mellitus (Last A1C 9 per patient), Hyperlipidemia and Morbid Obesity [facility] [place] None reported Neuropsych Anxiety, Bipolar and Depression Anesthetic Plan ASA status: 3 Anesthesia: General and MAC Medications/Allergies Home Medications Medication Instructions Recorded Confirmed Last Taken Type digoxin 125 mcg (0.125 mg) tablet 125 mcg PO QAM 09/21/19 08/28/23 08/27/23 History aspirin 81 mg tablet,delayed 81 mg PO QAM 08/02/20 08/28/23 08/27/23 History release metoprolol tartrate 50 mg tablet 100 mg PO BID 08/18/20 08/28/23 08/27/23 History metformin 1,000 mg tablet 1,000 mg PO BID #180 tabs 04/17/21 08/28/23 08/27/23 08:00 Rx insulin glargine 100 unit/mL (3 78 unit (0.78 mL) SUBCUT BID #15 mL 06/09/21 08/28/23 08/21/23 Rx mL) subcutaneous pen (Lantus Solostar U-100 Insulin) albuterol sulfate 90 mcg/actuation 2 puff inhalation Q6H PRN 09/26/21 08/28/23 Unknown History aerosol inhaler Shortness Of Breath atorvastatin 20 mg tablet 20 mg PO QPM 09/26/21 08/28/23 08/27/23 History cholecalciferol (vitamin D3) 25 25 mcg PO QAM 09/26/21 08/28/23 08/27/23 History mcg (1,000 unit) tablet (Vitamin D3) High Top Velcro Tennis Shoes #1 ea 06/18/22 08/15/23 Unknown Rx amlodipine 10 mg tablet 10 mg PO DAILY 06/25/22 08/28/23 08/27/23 History empagliflozin 25 mg tablet 25 mg PO QAM 06/25/22 08/28/23 08/27/23 History (Jardiance) lisinopril 40 mg tablet 30 mg PO QAM 06/25/22 08/28/23 08/27/23 History ketorolac 10 mg tablet 10 mg PO TID PRN pain #10 tabs 11/24/22 08/28/23 08/27/23 Rx hydralazine 50 mg tablet 50 mg PO BID #60 tabs 01/07/23 08/28/23 08/27/23 Rx cetirizine 10 mg tablet 10 mg PO BID PRN Allergic Symptoms 01/26/23 08/28/23 08/27/23 History insulin aspart U-100 100 unit/mL 15 unit SUBCUT TID 01/26/23 08/28/23 08/27/23 12:00 History (3 mL) subcutaneous pen (Novolog 15 FlexPen U-100 Insulin aspart) Diabetic shoes #1 ea 07/02/23 08/15/23 Unknown Rx pantoprazole 40 mg tablet,delayed 40 mg PO BID 6 weeks #84 tabs 07/25/23 08/28/23 08/27/23 Rx release (Protonix) isosorbide mononitrate 60 mg 60 mg PO QAM 08/26/23 08/28/23 08/27/23 History tablet,extended release 24 hr Allergies Allergy/AdvReac Type Severity Reaction Status Date / Time fentanyl Allergy ADR-Itching Verified 08/28/23 09:57 morphine Allergy ADR-Confusi Verified 08/28/23 09:57 on Current Medications Generic Name Dose Route Start Last Admin Trade Name Eduardoq PRN Reason Stop Dose Admin Sodium Chloride 1,000 mls @ 30 mls/hr 08/28/23 10:00 08/28/23 10:24 Sodium Chloride 0.9% IV 08/29/23 09:59 30 mls/hr .Q24H RAUL Administration PFSH Anesthesia Medical History Diabetic peripheral neuropathy associated with type 2 diabetes mellitus Hx MRSA infection DM type 2 (diabetes mellitus, type 2) Obstructive sleep apnea Morbid obesity Benign essential HTN Supraventricular tachycardia Alcohol dependence, in remission Bipolar disorder, in partial remission, most recent episode manic Posttraumatic stress disorder Binge eating disorder Tinea cruris Nephropathy Nephrolithiasis GERD (gastroesophageal reflux disease) Surgical History [place]ophagogastroduoden[place]) [place] [facility] [place]x [place] [facility] [place] History of ankle surgery S/P cholecystectomy S/P knee surgery S/P adenoidectomy S/P vasectomy S/P hernia repair H/O oral surgery S/P tendon repair S/P myringotomy with insertion of tube Family History Other Adopted Social History Smoking and tobacco/nicotine status: current every day tobacco/nicotine user e-cigarettes E-Cigarette Details: vaporizer device and without nicotine Alcohol intake: former Year of sobriety/quit date alcohol: 11mo Substance/Drug Use: current Other substance/drug use details: CBD Adopted: Yes Caregiver/support person: No Lives independently: Yes Household members: spouse Housing: Apartment Marital status: Number of children: 2 Highest education level completed: Some College, No Degree service: Yes status: Medically Discharged/Retired branch: [employer] Current occupational status: disabled Pets and animals: Yes Pets & animals: dog(s) Leisure activites: games Sexually active: Yes Do you think of yourself as: Straight/Heterosexual Current gender identity: Male Leda/Evangelical: None Special leda needs: No Agree to transfusion: Yes Data Anesthesia Cardiac Studies: Echocardiogram 03/22/23 Sestamibi Stress Test (Cardiology) 01/07/20
--- NOTE | 2023-08-28 10:58 | P.HP_ITS ---
Providers/Chief Complaint Primary Care Provider: Manda Raza MD Chief Complaint: K21.9 History of Present Illness Tyree Buckley is a 42 year old male Review of Systems General: Reports: 10 or more systems reviewed and unremarkable except in HPI and below Medications/Allergies Home Medications Medication Instructions Recorded Confirmed Last Taken Type digoxin 125 mcg (0.125 mg) tablet 125 mcg PO QAM 09/21/19 08/28/23 08/27/23 History aspirin 81 mg tablet,delayed 81 mg PO QAM 08/02/20 08/28/23 08/27/23 History release metoprolol tartrate 50 mg tablet 100 mg PO BID 08/18/20 08/28/23 08/27/23 History metformin 1,000 mg tablet 1,000 mg PO BID #180 tabs 04/17/21 08/28/23 08/27/23 08:00 Rx insulin glargine 100 unit/mL (3 78 unit (0.78 mL) SUBCUT BID #15 mL 06/09/21 08/28/23 08/21/23 Rx mL) subcutaneous pen (Lantus Solostar U-100 Insulin) albuterol sulfate 90 mcg/actuation 2 puff inhalation Q6H PRN 09/26/21 08/28/23 Unknown History aerosol inhaler Shortness Of Breath atorvastatin 20 mg tablet 20 mg PO QPM 09/26/21 08/28/23 08/27/23 History cholecalciferol (vitamin D3) 25 25 mcg PO QAM 09/26/21 08/28/23 08/27/23 History mcg (1,000 unit) tablet (Vitamin D3) High Top Velcro Tennis Shoes #1 ea 06/18/22 08/15/23 Unknown Rx amlodipine 10 mg tablet 10 mg PO DAILY 06/25/22 08/28/23 08/27/23 History empagliflozin 25 mg tablet 25 mg PO QAM 06/25/22 08/28/23 08/27/23 History (Jardiance) lisinopril 40 mg tablet 30 mg PO QAM 06/25/22 08/28/23 08/27/23 History ketorolac 10 mg tablet 10 mg PO TID PRN pain #10 tabs 11/24/22 08/28/23 08/27/23 Rx hydralazine 50 mg tablet 50 mg PO BID #60 tabs 01/07/23 08/28/23 08/27/23 Rx cetirizine 10 mg tablet 10 mg PO BID PRN Allergic Symptoms 01/26/23 08/28/23 08/27/23 History insulin aspart U-100 100 unit/mL 15 unit SUBCUT TID 01/26/23 08/28/23 08/27/23 12:00 History (3 mL) subcutaneous pen (Novolog 15 FlexPen U-100 Insulin aspart) Diabetic shoes #1 ea 07/02/23 08/15/23 Unknown Rx pantoprazole 40 mg tablet,delayed 40 mg PO BID 6 weeks #84 tabs 07/25/23 08/28/23 08/27/23 Rx release (Protonix) isosorbide mononitrate 60 mg 60 mg PO QAM 08/26/23 08/28/23 08/27/23 History tablet,extended release 24 hr Allergies Allergy/AdvReac Type Severity Reaction Status Date / Time fentanyl Allergy ADR-Itching Verified 08/28/23 09:57 morphine Allergy ADR-Confusi Verified 08/28/23 09:57 on PFSH Acute PFSH: Medical History Diabetic peripheral neuropathy associated with type 2 diabetes mellitus Hx MRSA infection DM type 2 (diabetes mellitus, type 2) Obstructive sleep apnea Morbid obesity Benign essential HTN Supraventricular tachycardia Alcohol dependence, in remission Bipolar disorder, in partial remission, most recent episode manic Posttraumatic stress disorder Binge eating disorder Tinea cruris Nephropathy Nephrolithiasis GERD (gastroesophageal reflux disease) Surgical History [place]) [place] [facility] [place] [facility] [place] of ankle surgery S/P cholecystectomy S/P knee surgery S/P adenoidectomy S/P vasectomy S/P hernia repair H/O oral surgery S/P tendon repair S/P myringotomy with insertion of tube Family History Other Adopted Social History Smoking and tobacco/nicotine status: current every day tobacco/nicotine user e- cigarettes E-Cigarette Details: vaporizer device and without nicotine Alcohol intake: former Year of sobriety/quit date alcohol: 11mo Substance/Drug Use: current Other substance/drug use details: CBD Adopted: Yes Caregiver/support person: No Lives independently: Yes Household members: spouse Housing: Apartment Marital status: Number of children: 2 Highest education level completed: Some College, No Degree service: Yes status: Medically Discharged/Retired branch: [employer] Current occupational status: disabled Pets and animals: Yes Pets & animals: dog(s) Leisure activites: games Sexually active: Yes Do you think of yourself as: Straight/Heterosexual Current gender identity: Male Leda/Scientologist: None Special leda needs: No Agree to transfusion: Yes Vitals/I&O/Wt Last Vital Signs Temp 97.7 F 08/28/23 10:01 Pulse 74 08/28/23 10:01 Resp 18 08/28/23 10:01 BP 189/106 08/28/23 10:01 Pulse Ox 97 08/28/23 10:01 O2 Del Method Room Air 08/28/23 10:01 Weight last 48 hrs Weight 411 lb A&P Assessment and plan (1) Colon cancer screening: (2) Dysphagia: Plan EGD with possible balloon dilation Colonoscopy Attestations Medical Necessity Statement*: Home Coding Level of Care Code Acute Code for Chg Fwd Diagnoses Colon cancer screening Z12.11 Dysphagia R13.10
[2023-08-28 11:30] VITALS: BP 191/111; PULSE 66; RESP 14; TEMP 36.4; O2SAT 100
[2023-08-28 11:40] VITALS: BP 188/112; PULSE 60; RESP 16; O2SAT 100
[2023-08-28 11:50] VITALS: BP 160/104; PULSE 70; RESP 18; O2SAT 96
--- NOTE | 2023-08-28 12:30 | ANE.PACU2 ---
Inpatient post-anesthesia follow up: Airway intact: Yes Vital signs: Temperature 97.5 F Pulse Rate 70 Respiratory Rate 18 Blood Pressure 160/104 Pulse Oximetry 96 Oxygen Delivery Me thod Room Air Oxygen Flow Rate Fraction of Inspir ed Oxygen Hydration adequate: Yes Nausea and vomiting: No Pain level: 1 Mental status: Baseline
== END 2023-08-28 12:34 | disposition home or self-care (01) ==
PROVIDERS: PCP Family Medicine; Visit Provider Surgery
PROC: 0DJD8ZZ Inspection of Lower Intestinal Tract, Via Natural or Artificial Opening Endoscopic (ICD-10-PCS; CPT 45378; 2023-08-28 11:00)
DX: Z12.11 Encounter for screening for malignant neoplasm of colon (principal); D12.8 Benign neoplasm of rectum; K21.9 Gastro-esophageal reflux disease without esophagitis; Z79.82 Long term (current) use of aspirin; Z79.4 Long term (current) use of insulin; R13.10 Dysphagia, unspecified; K29.70 Gastritis, unspecified, without bleeding; E11.42 Type 2 diabetes mellitus with diabetic polyneuropathy; K52.9 Noninfective gastroenteritis and colitis, unspecified; Z86.14 Personal history of Methicillin resistant Staphylococcus aureus infection; G47.33 Obstructive sleep apnea (adult) (pediatric); E66.01 Morbid (severe) obesity due to excess calories; Z68.43 Body mass index [BMI] 50.0-59.9, adult; I10 Essential (primary) hypertension; F17.200 Nicotine dependence, unspecified, uncomplicated
CPT/HCPCS: 36416; 43239; 45380; 45385; 82962; 88305; 88342; J2704; J3490; J7030

== ENCOUNTER → 2023-09-09 09:34 | Outpatient (BNVA) | payer MEDICAID, SELFPAY ==
[2022-03-15 08:05] VITALS: BP 132/80; BMI 61.5
== END ==
PROVIDERS: PCP Family Medicine; Visit Provider Surgery
DX: Z09 Encounter for follow-up examination after completed treatment for conditions other than malignant neoplasm (principal); R13.10 Dysphagia, unspecified; K31.819 Angiodysplasia of stomach and duodenum without bleeding; K76.0 Fatty (change of) liver, not elsewhere classified; E66.01 Morbid (severe) obesity due to excess calories; K63.5 Polyp of colon
CPT/HCPCS: 99214

== ENCOUNTER 2023-09-16 18:50 | Emergency (ER) | payer MEDICAID, SELFPAY ==
[2022-03-15 08:05] VITALS: BP 132/80; BMI 61.5
--- NOTE | 2023-09-16 18:52 | XRR_ITS ---
PROCEDURE INFORMATION: Exam: XR Chest Exam date and time: 09/16/2023 6:57 PM Age: 42 years old Clinical indication: Cough and shortness of breath; Additional info: SOB TECHNIQUE: Imaging protocol: Radiologic exam of the chest. Views: 1 view. COMPARISON: CR XR chest 1V portable [id number] 03/21/2023 5:57 AM FINDINGS: Lungs: Unremarkable. No consolidation. Pleural spaces: Unremarkable. No pleural effusion. No pneumothorax. Heart/Mediastinum: Unremarkable. No cardiomegaly. Bones/joints: Unremarkable. XR/XR chest 1V portable [id number] IMPRESSION: No acute findings.
[2023-09-16 19:04] VITALS: BP 177/111; PULSE 97; RESP 18; TEMP 36.9; O2SAT 93
--- NOTE | 2023-09-16 20:15 | ED_ITS ---
Documented by User: BILLIE Nash 09/17/23 00:17 HPI - URI/Sore Throat General: Chief Complaint: Upper Respiratory Infection Stated Complaint: cough, sob Time Seen by Provider: 09/16/23 19:41 Source: patient Mode of arrival: ambulatory Limitations: no limitations History of Present Illness: Patient is a 42-year-old male present to the emergency department complaining of cough for the past few days. Cough is not productive. He is also complaining of some pain with coughing, however he does not feel short of breath. He notes he is also having some congestion and upper respiratory symptoms with a history of sinus infections. He states he is just concerned that this will become a bronchitis, as he has had this in the past. He denies any fever, vomiting, or any other symptoms at this time. He is taking cough medicine and states that this is not helping. MD elicited complaint: cough Onset (ago): day(s) Consistency: constant Severity: moderate Able to tolerate fluids by mouth: Yes Associated symptoms: Reports nasal congestion; Deny abdominal pain, chills, chest pain, diarrhea, ear or mastoid pain, fever(s), headache(s), nausea or vomiting Review of Systems General: Reports: 10 or more systems reviewed and unremarkable except in HPI and below Const: Denies: fever(s), chills or fatigue Eyes: Denies: change in vision ENMT: Reports: nasal discharge and nasal congestion; Denies: throat pain or ear or mastoid pain Card: Denies: chest pain, palpitations, swelling of feet/ankles or lightheadedness Resp: Reports: non-productive cough; Denies: dyspnea or wheezing GI: Denies: abdominal pain, nausea, vomiting, diarrhea or constipation : Denies: flank pain, difficulty urinating, dysuria or urinary frequency Musc: Denies: neck pain, back pain or joint pain Skin/Breast: Denies: rash Neuro: Denies: headache(s), numbness in extremities or weakness in extremities PFS ED PFSH: Medical History Morbid obesity Diabetic peripheral neuropathy associated with type 2 diabetes mellitus Hx MRSA infection DM type 2 (diabetes mellitus, type 2) Obstructive sleep apnea Morbid obesity Benign essential HTN Supraventricular tachycardia Alcohol dependence, in remission Bipolar disorder, in partial remission, most recent episode manic Posttraumatic stress disorder Binge eating disorder Tinea cruris Nephropathy Nephrolithiasis GERD (gastroesophageal reflux disease) Surgical History [place]) [place] [facility] [place] [facility] [place] of ankle surgery S/P cholecystectomy S/P knee surgery S/P adenoidectomy S/P vasectomy S/P hernia repair H/O oral surgery S/P tendon repair S/P myringotomy with insertion of tube Family History Other Adopted Social History Smoking and tobacco/nicotine status: current every day tobacco/nicotine user e- cigarettes E-Cigarette Details: vaporizer device and without nicotine Alcohol intake: former Year of sobriety/quit date alcohol: 11mo Substance/Drug Use: current Other substance/drug use details: CBD Adopted: Yes Caregiver/support person: No Lives independently: Yes Household members: spouse Housing: Apartment Marital status: Number of children: 2 Highest education level completed: Some College, No Degree service: Yes status: Medically Discharged/Retired branch: [employer] Current occupational status: disabled Pets and animals: Yes Pets & animals: dog(s) Leisure activites: games Sexually active: Yes Do you think of yourself as: Straight/Heterosexual Current gender identity: Male Leda/Evangelical: None Special leda needs: No Agree to transfusion: Yes Physical Exam Const: COMMON NORMALS: no acute distress and healthy appearing GENERAL APPEARANCE: cooperative, comfortable and well developed NUTRITIONAL APPEARANCE: obese morbidly obese HENMT: COMMON NORMALS: normocephalic, atraumatic, hearing grossly normal bilaterally, external ears normal, EAC's normal, TM's normal bilaterally, Normal external nose present and Normal nasal mucous membranes and turbinates present HEAD & SCALP: normal to inspection, normocephalic and atraumatic FACE & SINUS: normal facial exam and sinuses nontender NOSE: Normal external nose present, Normal nares present, No nasal polyps present and Normal nasal mucous membranes and turbinates present EXTERNAL EAR: Yes external ears normal EXTERNAL AUDITORY CANAL: EAC's normal TYMPANIC MEMBRANE: TM's normal bilaterally MOUTH: Normal oral and palatal mucosa present THROAT: posterior oropharynx normal and tonsils normal Eye: COMMON NORMALS: EOMs intact bilaterally, conjunctivae normal and normal visual cabrera by confrontation GENERAL EYE: appearance normal, both eyes and all related structures CONJUNCTIVA: Yes conjunctivae normal Neck/C-Spine: COMMON NORMALS: full ROM, no lymphadenopathy, supple and no meningeal signs GENERAL: Yes normal visual inspection Chest: COMMONS NORMALS: normal inspection of the chest Resp: COMMON NORMALS: normal respiratory effort and clear to auscultation bilaterally EFFORT & INSPECTION: Yes able to speak in complete sentences A USCULTATION: clear to auscultation bilaterally Cardio: COMMON NORMALS: regular rate, regular rhythm, S1 normal heart sound present and S2 normal heart sound present RATE: regular rate RHYTHM: regular rhythm HEART SOUNDS: S1 normal heart sound present, S2 normal heart sound present, no gallops, no murmurs and no rubs GI: COMMON NORMALS: Soft to palpation and No hepatosplenomegaly present INSPECTION: Yes normal to inspection PALPATION: Yes Soft to palpation and Yes No hepatosplenomegaly present Extremity: COMMON NORMALS: normal to inspection, full ROM and capillary refill normal Neuro: MENINGEAL SIGNS: Yes no meningeal signs Skin: COMMON NORMALS: no rashes or lesions noted GENERAL SKIN EXAM: no rashes or lesions noted Course Vital Signs: Vital signs: Vital Signs Temperature 98.5 F 09/16/23 19:04 Pulse Rate 84 09/16/23 20:48 Respiratory Rate 20 H 09/16/23 20:48 Blood Pressure 174/89 09/16/23 20:48 Pulse Oximetry 95 09/16/23 20:48 Oxygen Delivery Me thod Room Air 09/16/23 19:04 MDM - URI/Sore Throat Medical Decision Making Patient seen and evaluated due to cough for the past few days. On arrival patient's vitals unremarkable have remained stable throughout his ED course. Examination showed an obese male, however normal to cardiopulmonary auscultation. Chest x-ray obtained unremarkable. Swab for flu was positive for influenza B. I instructed the patient on return precautions such as if he begins to develop shortness of breath or any severe worsening of his cough. I will treat with Promethazine DM and informed him to take Tylenol for any fevers or myalgias. Contagion precaution given to patient. All other questions and concerns addressed at this time. Lab Data Radiology Impressions Chest X-Ray 09/16/23 18:52 IMPRESSION: No acute findings. Laboratory Results Influenza Type A Ag negative (Negative) 09/16/23 20:03 Influenza Type B Ag positive (Negative) H 09/16/23 20:03 SARS-CoV-2 Ag (Rapid) negative (Negative) 09/16/23 20:03 No radiology studies performed this visit Discharge Plan Discharge Patient Disposition: Home Clinical Impression: Influenza B Condition: Stable Prescriptions: New promethazine-DM 6.25-15 mg/5 mL syrup 10 ml PO Q6H PRN (Reason: cough) Qty: 118 0RF No Action Lantus Solostar U-100 Insulin 100 unit/mL (3 mL) insulin pen 78 unit SUBCUT BID Qty: 15 3RF Rx Instructions: Inject 78 units twice a day. digoxin 125 mcg (0.125 mg) tablet 125 mcg PO QAM amlodipine 10 mg tablet 10 mg PO DAILY Jardiance 25 mg tablet 25 mg PO QAM ([facility] [place]) Diabetic shoes See Rx Instructions .Route .MEDSUPPLY Qty: 1 0RF Rx Instructions: with one pair of custom molded inserts As directed by the margy mcknight ([facility] [place]) Diabetic High Top Velcro Tennis Shoes with Custom Molded Orthotics See Rx Instructions .Route .MEDSUPPLY Qty: 1 0RF Rx Instructions: As directed HOME hydralazine 50 mg tablet 50 mg PO BID Qty: 60 5RF pantoprazole [Protonix] 40 mg tablet,delayed release (DR/EC) 40 mg PO BID 42 Days Qty: 84 1RF metformin 1,000 mg tablet 1,000 mg PO BID Qty: 180 0RF Rx Instructions: Take one tablet by mouth twice a day. lisinopril 40 mg tablet 30 mg PO QAM aspirin 81 mg Tablet,Delayed Release (Dr/Ec) 81 mg PO QAM metoprolol tartrate 50 mg tablet 100 mg PO BID cetirizine 10 mg tablet 10 mg PO BID PRN (Reason: Allergic Symptoms) insulin aspart U-100 [Novolog FlexPen U-100 Insulin] 100 unit/mL (3 mL) insulin pen 15 unit SUBCUT TID Rx Instructions: Administer 15 units subcut three times a day before meals. atorvastatin 20 mg Tablet 20 mg PO QPM albuterol sulfate 90 mcg/actuation Hfa Aerosol Inhaler 2 puff INHALATION Q6H PRN (Reason: Shortness Of Breath) cholecalciferol (vitamin D3) [Vitamin D3] 25 mcg (1,000 unit) Tablet 25 mcg PO QAM ketorolac 10 mg tablet 10 mg PO TID PRN (Reason: pain) Qty: 10 0RF Hold Instructions: Resume on 08/30/23. isosorbide mononitrate 60 mg tablet extended release 24 hr 60 mg PO QAM Discharge Orders: Discharge ED (Routine); Ordered 09/16/23 Ordered By: Jorge Del Rosario Referrals: Beverly Doss DO [Primary Care Provider] - Discharge Diet: Usual diet Discharge Activity: Increase activity as tolerated Patient Instructions: Influenza (ED) Activity Restrictions/Additional Instructions: Tylenol for any fevers. Cough medicine as needed. Continue your Zyrtec. Monitor for any worsening of symptoms such as increased breathing difficulties, and return for reevaluation. Otherwise, you may follow-up with your primary care provider. Plenty of fluids. Contagion precaution. Coding Level of Care Code ED Tour Narrator for Chg Fwd Documented by User: Miquel Marlow DO 09/18/23 06:03 HPI - URI/Sore Throat General: Chief Complaint: Upper Respiratory Infection Stated Complaint: cough, sob Time Seen by Provider: 09/16/23 19:41 PFSH ED PFSH: Medical History Morbid obesity Diabetic peripheral neuropathy associated with type 2 diabetes mellitus Hx MRSA infection DM type 2 (diabetes mellitus, type 2) Obstructive sleep apnea Morbid obesity Benign essential HTN Supraventricular tachycardia Alcohol dependence, in remission Bipolar disorder, in partial remission, most recent episode manic Posttraumatic stress disorder Binge eating disorder Tinea cruris Nephropathy Nephrolithiasis GERD (gastroesophageal reflux disease) Surgical History [place]ast[place]) [place] [facility] [place] [facility] [place] of ankle surgery S/P cholecystectomy S/P knee surgery S/P adenoidectomy S/P vasectomy S/P hernia repair H/O oral surgery S/P tendon repair S/P myringotomy with insertion of tube Family History Other Adopted Social History Smoking and tobacco/nicotine status: current every day tobacco/nicotine user e- cigarettes E-Cigarette Details: vaporizer device and without nicotine Alcohol intake: former Year of sobriety/quit date alcohol: 11mo Substance/Drug Use: current Other substance/drug use details: CBD Adopted: Yes Caregiver/support person: No Lives independently: Yes Household members: spouse Housing: Apartment Marital status: Number of children: 2 Highest education level completed: Some College, No Degree service: Yes status: Medically Discharged/Retired branch: [employer] Current occupational status: disabled Pets and animals: Yes Pets & animals: dog(s) Leisure activites: games Sexually active: Yes Do you think of yourself as: Straight/Heterosexual Current gender identity: Male Leda/Evangelical: None Special leda needs: No Agree to transfusion: Yes Course Vital Signs: Vital signs: Vital Signs Temperature 98.5 F 09/16/23 19:04 Pulse Rate 84 09/16/23 20:48 Respiratory Rate 20 H 09/16/23 20:48 Blood Pressure 174/89 09/16/23 20:48 Pulse Oximetry 95 09/16/23 20:48 Oxygen Delivery Me thod Room Air 09/16/23 19:04 MDM - URI/Sore Throat Medical Decision Making Patient seen and evaluated due to cough for the past few days. On arrival patient's vitals unremarkable have remained stable throughout his ED course. Examination showed an obese male, however normal to cardiopulmonary auscultation. Chest x-ray obtained unremarkable. Swab for flu was positive for influenza B. I instructed the patient on return precautions such as if he begins to develop shortness of breath or any severe worsening of his cough. I will treat with Promethazine DM and informed him to take Tylenol for any fevers or myalgias. Contagion precaution given to patient. All other questions and concerns addressed at this time. Chart reviewed Lab Data Radiology Impressions Chest X-Ray 09/16/23 18:52 IMPRESSION: No acute findings. Laboratory Results Influenza Type A Ag negative (Negative) 09/16/23 20:03 Influenza Type B Ag positive (Negative) H 09/16/23 20:03 SARS-CoV-2 Ag (Rapid) negative (Negative) 09/16/23 20:03 Discharge Plan Discharge Patient Disposition: Home Clinical Impression: Influenza B Condition: Stable Prescriptions: New promethazine-DM 6.25-15 mg/5 mL syrup 10 ml PO Q6H PRN (Reason: cough) Qty: 118 0RF No Action Lantus Solostar U-100 Insulin 100 unit/mL (3 mL) insulin pen 78 unit SUBCUT BID Qty: 15 3RF Rx Instructions: Inject 78 units twice a day. digoxin 125 mcg (0.125 mg) tablet 125 mcg PO QAM amlodipine 10 mg tablet 10 mg PO DAILY Jardiance 25 mg tablet 25 mg PO QAM (DME) Diabetic shoes See Rx Instructions .Route .MEDSUPPLY Qty: 1 0RF Rx Instructions: with one pair of custom molded inserts As directed by the margy mcknight ([facility] [place]) Diabetic High Top Velcro Tennis Shoes with Custom Molded Orthotics See Rx Instructions .Route .MEDSUPPLY Qty: 1 0RF Rx Instructions: As directed HOME hydralazine 50 mg tablet 50 mg PO BID Qty: 60 5RF pantoprazole [Protonix] 40 mg tablet,delayed release (DR/EC) 40 mg PO BID 42 Days Qty: 84 1RF metformin 1,000 mg tablet 1,000 mg PO BID Qty: 180 0RF Rx Instructions: Take one tablet by mouth twice a day. lisinopril 40 mg tablet 30 mg PO QAM aspirin 81 mg Tablet,Delayed Release (Dr/Ec) 81 mg PO QAM metoprolol tartrate 50 mg tablet 100 mg PO BID cetirizine 10 mg tablet 10 mg PO BID PRN (Reason: Allergic Symptoms) insulin aspart U-100 [Novolog FlexPen U-100 Insulin] 100 unit/mL (3 mL) insulin pen 15 unit SUBCUT TID Rx Instructions: Administer 15 units subcut three times a day before meals. atorvastatin 20 mg Tablet 20 mg PO QPM albuterol sulfate 90 mcg/actuation Hfa Aerosol Inhaler 2 puff INHALATION Q6H PRN (Reason: Shortness Of Breath) cholecalciferol (vitamin D3) [Vitamin D3] 25 mcg (1,000 unit) Tablet 25 mcg PO QAM ketorolac 10 mg tablet 10 mg PO TID PRN (Reason: pain) Qty: 10 0RF Hold Instructions: Resume on 08/30/23. isosorbide mononitrate 60 mg tablet extended release 24 hr 60 mg PO QAM Discharge Orders: Discharge ED (Routine); Ordered 09/16/23 Ordered By: Jorge Del Rosario Referrals: Beverly Doss DO [Primary Care Provider] - Discharge Diet: Usual diet Discharge Activity: Increase activity as tolerated Patient Instructions: Influenza (ED) Activity Restrictions/Additional Instructions: Tylenol for any fevers. Cough medicine as needed. Continue your Zyrtec. Monitor for any worsening of symptoms such as increased breathing difficulties, and return for reevaluation. Otherwise, you may follow-up with your primary care provider. Plenty of fluids. Contagion precaution. Coding Level of Care Code ED Tour Narrator for Christin Chang
[2023-09-16 20:30] LABS: Influenza A by IFA negative (Negative); Influenza B by IFA positive (Negative); SARS Covid-2 Antigen negative (Negative)
[2023-09-16 20:48] VITALS: BP 174/89; PULSE 84; RESP 20; O2SAT 95
== END 2023-09-16 20:49 | disposition home or self-care (01) ==
PROVIDERS: Emergency Provider Physician Assistant; PCP Family Medicine
DX: J10.1 Influenza due to other identified influenza virus with other respiratory manifestations (principal); Z79.82 Long term (current) use of aspirin; Z79.84 Long term (current) use of oral hypoglycemic drugs; Z79.4 Long term (current) use of insulin; Z11.52 Encounter for screening for COVID-19; F17.290 Nicotine dependence, other tobacco product, uncomplicated; I10 Essential (primary) hypertension; E11.42 Type 2 diabetes mellitus with diabetic polyneuropathy; E11.21 Type 2 diabetes mellitus with diabetic nephropathy
CPT/HCPCS: 71045; 87426; 87804; 99284

== ENCOUNTER 2023-09-22 18:27 | Emergency (ER) | payer MEDICAID, SELFPAY ==
[2022-03-15 08:05] VITALS: BP 132/80; BMI 61.5
[2023-09-22 18:38] VITALS: BP 129/70; PULSE 84; RESP 17; TEMP 36.6; O2SAT 95; BMI 58.1
--- NOTE | 2023-09-22 19:44 | ED_ITS ---
HPI - Neck Pain/Injury General: Chief Complaint: Neck Pain/Injury Stated Complaint: NECK AND SHOULDER TINGLING Time Seen by Provider: 09/22/23 19:05 History of Present Illness: 43-year-old male patient comes in today for complaints of lower cervical spine pain with radiation of numbness in the upper extremities. 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 Patient reports he started having some pain and discomfort on Saturday. Patient did perform in the weightlifting meet on Saturday but only does bench presses and lifting. Patient has normal range of motion of extremities. Patient denies any falls or injuries. Patient appears nontoxic. Review of Systems General: Reports: 10 or more systems reviewed and unremarkable except in HPI and below PFSH ED PFSH: Medical History Morbid obesity Diabetic peripheral neuropathy associated with type 2 diabetes mellitus Hx MRSA infection DM type 2 (diabetes mellitus, type 2) Obstructive sleep apnea Morbid obesity Benign essential HTN Supraventricular tachycardia Alcohol dependence, in remission Bipolar disorder, in partial remission, most recent episode manic Posttraumatic stress disorder Binge eating disorder Tinea cruris Nephropathy Nephrolithiasis GERD (gastroesophageal reflux disease) Surgical History History of [place]ophagogastroduodenoscopy ([place]) 6[place] [facility] [place] [facility] [place] History of ankle surgery S/P cholecystectomy S/P knee surgery S/P adenoidectomy S/P vasectomy S/P hernia repair H/O oral surgery S/P tendon repair S/P myringotomy with insertion of tube Family History Other Adopted Social History Smoking and tobacco/nicotine status: current every day tobacco/nicotine user e- cigarettes E-Cigarette Details: vaporizer device and without nicotine Alcohol intake: former Year of sobriety/quit date alcohol: 11mo Substance/Drug Use: current Other substance/drug use details: CBD Adopted: Yes Caregiver/support person: No Lives independently: Yes Household members: spouse Housing: Apartment Marital status: Number of children: 2 Highest education level completed: Some College, No Degree service: Yes status: Medically Discharged/Retired branch: [employer] Current occupational status: disabled Pets and animals: Yes Pets & animals: dog(s) Leisure activites: games Sexually active: Yes Do you think of yourself as: Straight/Heterosexual Current gender identity: Male Leda/Amish: None Special leda needs: No Agree to transfusion: Yes Physical Exam Const: COMMON NORMALS: alert HENMT: COMMON NORMALS: normocephalic HEAD & SCALP: normocephalic Neck/C-Spine: CERVICAL SPINE: Yes Cervical spine tenderness C6 and C7 Chest: COMMONS NORMALS: normal palpation of entire chest wall Resp: COMMON NORMALS: normal respiratory effort Cardio: COMMON NORMALS: regular rate RATE: regular rate Back/Pelvis: COMMON NORMALS: thoracic and lumbar spine normal to inspection Extremity: COMMON NORMALS: normal to inspection Neuro: SENSORIUM/ORIENTATION: Yes alert Skin: COMMON NORMALS: turgor normal GENERAL SKIN EXAM: turgor normal Course Vital Signs: Vital signs: Vital Signs Temperature 98 F 09/22/23 18:38 Pulse Rate 84 09/22/23 18:38 Respiratory Rate 17 09/22/23 18:38 Blood Pressure 129/70 09/22/23 18:38 Pulse Oximetry 95 09/22/23 18:38 Oxygen Delivery Me thod Room Air 09/22/23 18:38 MDM - Neck Pain/Injury Medical Decision Making 43-year-old male patient comes in today for complaints of neck pain with radiation of numbness down both extremities. On exam patient appears nontoxic. Patient moves all extremities well. Patient does have some tenderness along the cervical spine at around C7 and C6 area. Differential diagnosis includes intervertebral disc disease, facet arthropathy, cervical strain. No signs of severe injury or illnesses noted. Believe patient probably has some intervertebral disc disease that is chronic and has exacerbated. No recent injuries are reported. Recommend acetaminophen along with an NSAID and muscle relaxer for pain improvement. Recommended repeat evaluation in 7 to 10 days by primary care and at that time he may need to have further evaluation with imaging to rule out significant disc protrusion. Patient reports understanding of care plan and need for follow-up or return to the ER. No radiology studies performed this visit Discharge Plan Discharge Patient Disposition: Home Clinical Impression: Cervical radiculopathy Condition: Stable Prescriptions: New celecoxib 200 mg capsule 200 mg PO BID Qty: 20 0RF cyclobenzaprine 10 mg tablet 10 mg PO BID PRN (Reason: muscle spasm) Qty: 20 0RF No Action Lantus Solostar U-100 Insulin 100 unit/mL (3 mL) insulin pen 78 unit SUBCUT BID Qty: 15 3RF Rx Instructions: Inject 78 units twice a day. digoxin 125 mcg (0.125 mg) tablet 125 mcg PO QAM amlodipine 10 mg tablet 10 mg PO DAILY Jardiance 25 mg tablet 25 mg PO QAM (DME) Diabetic shoes See Rx Instructions .Route .MEDSUPPLY Qty: 1 0RF Rx Instructions: with one pair of custom molded inserts As directed by the margy mcknight (DME) Diabetic High Top Velcro Tennis Shoes with Custom Molded Orthotics See Rx Instructions .Route .MEDSUPPLY Qty: 1 0RF Rx Instructions: As directed HOME hydralazine 50 mg tablet 50 mg PO BID Qty: 60 5RF pantoprazole [Protonix] 40 mg tablet,delayed release (DR/EC) 40 mg PO BID 42 Days Qty: 84 1RF metformin 1,000 mg tablet 1,000 mg PO BID Qty: 180 0RF Rx Instructions: Take one tablet by mouth twice a day. lisinopril 40 mg tablet 30 mg PO QAM aspirin 81 mg Tablet,Delayed Release (Dr/Ec) 81 mg PO QAM metoprolol tartrate 50 mg tablet 100 mg PO BID cetirizine 10 mg tablet 10 mg PO BID PRN (Reason: Allergic Symptoms) insulin aspart U-100 [Novolog FlexPen U-100 Insulin] 100 unit/mL (3 mL) insulin pen 15 unit SUBCUT TID Rx Instructions: Administer 15 units subcut three times a day before meals. atorvastatin 20 mg Tablet 20 mg PO QPM albuterol sulfate 90 mcg/actuation Hfa Aerosol Inhaler 2 puff INHALATION Q6H PRN (Reason: Shortness Of Breath) cholecalciferol (vitamin D3) [Vitamin D3] 25 mcg (1,000 unit) Tablet 25 mcg PO QAM ketorolac 10 mg tablet 10 mg PO TID PRN (Reason: pain) Qty: 10 0RF Hold Instructions: Resume on 08/30/23. isosorbide mononitrate 60 mg tablet extended release 24 hr 60 mg PO QAM promethazine-DM 6.25-15 mg/5 mL syrup 10 ml PO Q6H PRN (Reason: cough) Qty: 118 0RF Discharge Orders: Discharge ED (Routine); Ordered 09/22/23 Ordered By: Wyatt Barker Referrals: Beverly Doss DO [Primary Care Provider] - Patient Instructions: Cervical Radiculopathy (ED) Activity Restrictions/Additional Instructions: Activity as tolerated. Take celecoxib 200 mg twice a day for pain and inflammation. Use cyclobenzaprine for muscle laxation. Use ice or heat for further pain relief. Gentle stretching and range of motion exercises. Follow- up with primary care in 3 to 5 days for recheck. Return to ED for new concerns or worsening symptoms such as high fever or shortness of breath. Coding Level of Care Code ED Track Laminating Machine Tender for Christin Chang
[2023-09-22] MEDS: ketorolac 30 mg/mL INJ IM (20:00)
[2023-09-22] MEDS: cyclobenzaprine 10 mg Tablet PO (20:00)
[2023-09-22 20:10] VITALS: BP 129/70; PULSE 84; RESP 17; TEMP 36.6; O2SAT 95
== END 2023-09-22 20:11 | disposition home or self-care (01) ==
PROVIDERS: Emergency Provider Nurse Practitioner Family; PCP Family Medicine
DX: M54.12 Radiculopathy, cervical region (principal); Z79.82 Long term (current) use of aspirin; Z79.84 Long term (current) use of oral hypoglycemic drugs; Z79.4 Long term (current) use of insulin; F17.290 Nicotine dependence, other tobacco product, uncomplicated; E11.42 Type 2 diabetes mellitus with diabetic polyneuropathy; I10 Essential (primary) hypertension
CPT/HCPCS: 96372; 99284; J1885

== ENCOUNTER → 2023-10-01 10:06 | Outpatient (BNVA) | payer MEDICAID, SELFPAY ==
[2022-03-15 08:05] VITALS: BP 132/80; BMI 61.5
== END ==
PROVIDERS: PCP Family Medicine; Visit Provider Podiatrist Foot & Ankle Surgery
DX: E11.42 Type 2 diabetes mellitus with diabetic polyneuropathy (principal); I73.9 Peripheral vascular disease, unspecified; L60.3 Nail dystrophy; Z79.4 Long term (current) use of insulin
CPT/HCPCS: 11721

== ENCOUNTER 2023-11-14 10:15 | Outpatient (CLI) | payer OTHER, SELFPAY ==
[2022-03-15 08:05] VITALS: BP 132/80; BMI 61.5
== END 2023-11-14 10:16 | disposition home or self-care (01) ==
LOC: SPT 10:16
PROVIDERS: PCP Family Medicine; Visit Provider Student in an Organized Health Care Education/Training Program
DX: Z46.89 Encounter for fitting and adjustment of other specified devices (principal); M25.561 Pain in right knee
CPT/HCPCS: 20610; 97760; 99213; J3301; L1852

== ENCOUNTER 2023-11-18 20:54 | Emergency (ER) | payer OTHER, MEDICAID, SELFPAY ==
[2022-03-15 08:05] VITALS: BP 132/80; BMI 61.5
[2023-11-18 21:17] LABS: Glucose Point of Care 225 mg/dL (70-110)
--- NOTE | 2023-11-18 21:56 | CTR_ITS ---
PROCEDURE INFORMATION: Exam: CT Head Without Contrast Exam date and time: 11/18/2023 10:01 PM Age: 43 years old Clinical indication: Visual disturbance; Additional info: Acute blurry vision TECHNIQUE: Imaging protocol: Computed tomography of the head without contrast. Radiation optimization: All CT scans at this facility use at least one of these dose optimization techniques: automated exposure control; mA and/or kV adjustment per patient size (includes targeted exams where dose is matched to clinical indication); or iterative reconstruction. COMPARISON: CT cervical spin wo con* [id number] 08/27/2019 8:31 PM RADIATION DOSE METRICS: Total DLP (mGy-cm): 1114.2 FINDINGS: Brain: Normal. No hemorrhage. Unremarkable white matter. No mass effect. Cerebral ventricles: No ventriculomegaly. Paranasal sinuses: Visualized sinuses are unremarkable. No fluid levels. Mastoid air cells: Visualized mastoid air cells are well aerated. Bones: Unremarkable. No acute fracture. Soft tissues: Unremarkable. CT/CT head wo con* [id number] IMPRESSION: No acute intracranial abnormality.
[2023-11-18 21:58] VITALS: BP 145/93; PULSE 71; RESP 18; O2SAT 94
--- NOTE | 2023-11-18 22:20 | W.ED.HA ---
HPI - Headache General: Chief Complaint: Headache Stated Complaint: pressure/blurriness in eyes Time Seen by Provider: 11/18/23 21:19 Source: patient Mode of arrival: ambulatory Limitations: no limitations History of Present Illness: Patient presents emergency department today for evaluation treatment of complaints of bilateral blurry vision and pressure behind bilateral eyes. Patient states is not really a headache but just discomfort behind both eyes. Patient is unsure whether it started suddenly or developed with time. He denies injury or trauma to his head recently. He has not been sick recently. He denies nasal congestion or sinus congestion. Patient does wear corrective lenses. He is denying visual field loss including any peripheral vision loss or central vision loss. Patient is a diabetic. He also takes a daily aspirin. Patient has not been vomiting. No fever. Review of Systems General: Reports: 10 or more systems reviewed and unremarkable except in HPI and below PFSH ED PFSH: Medical History Morbid obesity Diabetic peripheral neuropathy associated with type 2 diabetes mellitus Hx MRSA infection DM type 2 (diabetes mellitus, type 2) Obstructive sleep apnea Morbid obesity Benign essential HTN Supraventricular tachycardia Alcohol dependence, in remission Bipolar disorder, in partial remission, most recent episode manic Posttraumatic stress disorder Binge eating disorder Tinea cruris Nephropathy Nephrolithiasis GERD (gastroesophageal reflux disease) Surgical History History of esophagogastroduodenoscopy (EGD) 6-7 yrs ago at [facility] [place] Hx of colonoscopy [facility] [place] History of ankle surgery S/P cholecystectomy S/P knee surgery S/P adenoidectomy S/P vasectomy S/P hernia repair H/O oral surgery S/P tendon repair S/P myringotomy with insertion of tube Family History Other Adopted Social History Smoking and tobacco/nicotine status: current some day tobacco/nicotine user e-cigarettes E-Cigarette Details: vaporizer device and without nicotine Alcohol intake: former Year of sobriety/quit date alcohol: 11mo Substance/Drug Use: current Other substance/drug use details: CBD Adopted: Yes Caregiver/support person: No Lives independently: Yes Household members: spouse Housing: Apartment Marital status: Number of children: 2 Highest education level completed: Some College, No Degree service: Yes status: Medically Discharged/Retired branch: [employer] Current occupational status: disabled Pets and animals: Yes Pets & animals: dog(s) Leisure activites: games Sexually active: Yes Do you think of yourself as: Straight/Heterosexual Current gender identity: Male Leda/Hinduism: None Special leda needs: No Agree to transfusion: Yes Physical Exam Const: COMMON NORMALS: no acute distress, patient oriented x3 and alert OTHER: Patient is pleasant, social. He is laughing. Eye: COMMON NORMALS: Equal, round and reactive pupils present, EOMs intact bilaterally and conjunctivae normal CONJUNCTIVA: Yes conjunctivae normal PUPIL: Yes Equal, round and reactive pupils present Neck/C-Spine: COMMON NORMALS: no JVD OTHER: Full range of motion to the neck. Lymph: LYMPHATIC: no lymphadenopathy noted Resp: COMMON NORMALS: normal respiratory effort, No retractions and No use of accessory muscles Cardio: COMMON NORMALS: no JVD and regular rate RATE: regular rate GI: OTHER: Abdomen soft. Nontender on palpation. Back/Pelvis: COMMON NORMALS: thoracic and lumbar spine normal to inspection and thoraco-lumbar ROM normal Extremity: COMMON NORMALS: normal to inspection and full ROM OTHER: Patient is independently ambulatory and weightbearing. Neuro: COMMON NORMALS: patient oriented x3 SENSORIUM/ORIENTATION: Yes alert OTHER: No meningeal signs. Skin: COMMON NORMALS: no rashes or lesions noted and turgor normal GENERAL SKIN EXAM: no rashes or lesions noted and turgor normal Course Vital Signs: Vital signs: Vital Signs Pulse Rate 71 11/18/23 21:58 Respiratory Rate 18 11/18/23 21:58 Blood Pressure 174/82 11/18/23 22:45 Pulse Oximetry 96 11/18/23 22:45 Oxygen Delivery Me thod Room Air 11/18/23 22:45 MDM - Headache Medical Decision Making Patient presented to the emergency department today for complaints of pressure behind the eyes bilaterally and bilateral blurred vision. Patient does wear corrective lenses. He indicates no vomiting, no fever. When asked about his headache he indicates it is not a headache but just a pressure behind the eyes. He states he has not had any nasal congestion or sinus congestion recently. Pain does not radiate. Patient has not been dizzy or lightheaded. He has been eating and drinking without any difficulty. Patient is a diabetic and states he receives annual diabetic eye exams. Patient's lab work shows no signs of elevated white blood cell count concerning for infection. Physical examination shows no obvious physical abnormalities or flexions to the eyes. Scan shows no signs of masses, lesions, or bleeds. Second opinion provided by Dr. Corey who agrees that through the ER, no emergent findings are appreciated. Patient's visual acuity is left eye 20/25, right eye 20/30, and corrected 20/20. Patient complains of a blurry vision but denies visual field loss including peripheral visual field loss or central visual field loss. He indicates that his symptoms are to both eyes. This makes concerns for things like retinal detachment, retinal vein occlusion, etc. much less likely. Patient is requested to call his watch and clock repair clerk in the morning to request an eye examination for further evaluation of the back wall of his eye. However, strict return precautions were given to the patient for which she would need to come back to the emergency department. He verbalizes understanding and agreement to treatment plan. Differential Diagnosis Unlikely migraine, tension headache, subarachnoid hemorrhage, meningitis, sinusitis or postconcussion syndrome Lab Data 11/18/23 22:22 11/18/23 22:[address] 11/18/23 21:56 IMPRESSION: No acute intracranial abnormality. Laboratory Results WBC 10.30 10^3/uL (3.29-11.43) 11/18/23 22: RBC 5.85 10^6/uL (3.85-5.65) H 11/18/23 22:22 Hgb 15.30 g/dL (11.27-16.99) 11/18/23 22:22 Hct 46.4 % (37-53) 11/18/23 22:22 MCV 79.3 fl (82-101) L 11/18/23 22:22 MCH 26.2 pg (27-33) L 11/18/23 22: MCHC 33.0 g/dL (30-55) 11/18/23 22:22 RDW 13.6 % (12.1-15.1) 11/18/23 22:22 Plt Count 297 10^3/cmm (157-399) 11/18/23 22:22 MPV 9.3 fL (7.4-10.4) 11/18/23 22:22 Neut % (Auto) 61.6 % 11/18/23 22:22 Lymph % (Auto) 28.1 % 11/18/23 22:22 [place] % (Auto) 7.8 % 11/18/23 22:22 Eos % (Auto) 0.9 % 11/18/23 22:22 Baso % (Auto) 1.0 % 11/18/23 22:22 Neut # (Auto) 6.36 10^3/uL (1.8-7.7) 11/18/23 22:22 Lymph # (Auto) 2.9 10^3/uL (0.8-4.8) 11/18/23 22:22 [place] # (Auto) 0.8 10^3/uL (0.2-0.9) 11/18/23 22:22 Eos # (Auto) 0.1 10^3/uL (0.0-0.8) 11/18/23 22:22 Baso # (Auto) 0.1 10^3/uL (0.0-0.1) 11/18/23 22:22 Nucleated RBC % (auto) 0 % 11/18/23 22:22 Nucleated RBCs # 0.0 /100WBC 11/18/23 22:22 Sodium 136 mmol/L (136-145) 11/18/23 22:22 Potassium 3.7 mmol/L (3.5-5.1) 11/18/23 22:22 Chloride 99 mmol/L (98-107) 11/18/23 22:22 Carbon Dioxide 26 mmol/L (22-29) 11/18/23 22:22 Anion Gap 14.7 (5-19) 11/18/23 22:22 BUN 13 mg/dL (6-20) 11/18/23 22:22 Creatinine 0.7 mg/dL (0.7-1.2) 11/18/23 22:22 GFR Calculation 122.5 mL/min (90-130) 11/18/23 22:22 Glucose 231 mg/dL (65-115) H 11/18/23 22:22 POC Glucose 225 mg/dL (70-110) H 11/18/23 21:13 Calculated Osmolality 289 mOsm/kg (285-295) 11/18/23 22:22 Calcium 8.8 mg/dL (8.5-10.5) 11/18/23 22:22 Total Bilirubin 0.4 mg/dL (0.15-1.2) 11/18/23 22:22 AST 15 U/L (0-40) 11/18/23 22:22 ALT 28 U/L (0-41) 11/18/23 22:22 Alkaline Phosphatase 98 U/L (40-130) 11/18/23 22:22 Total Protein 6.7 g/dL (6.6-8.7) 11/18/23 22:22 Albumin 3.9 g/dL (3.5-5.2) 11/18/23 22:22 Globulin 2.8 g/dL (1.3-4.6) 11/18/23 22:22 All radiology interpretation(s) finalized by discharge Discharge Plan Discharge Patient Disposition: Home Clinical Impression: Vision changes Condition: Stable Prescriptions: No Action Lantus Solostar U-100 Insulin 100 unit/mL (3 mL) insulin pen 78 unit SUBCUT BID Qty: 15 3RF Rx Instructions: Inject 78 units twice a day. digoxin 125 mcg (0.125 mg) tablet 125 mcg PO QAM amlodipine 10 mg tablet 10 mg PO DAILY Jardiance 25 mg tablet 25 mg PO QAM (DME) Diabetic shoes See Rx Instructions .Route .MEDSUPPLY Qty: 1 0RF Rx Instructions: with one pair of custom molded inserts As directed by the margy mcknight (DME) Diabetic High Top Velcro Tennis Shoes with Custom Molded Orthotics See Rx Instructions .Route .MEDSUPPLY Qty: 1 0RF Rx Instructions: As directed HOME hydralazine 50 mg tablet 50 mg PO BID Qty: 60 5RF pantoprazole [Protonix] 40 mg tablet,delayed release (DR/EC) 40 mg PO BID 42 Days Qty: 84 1RF (DME) RIGHT KNEE HEAD OF ACADEMIC TECHNOLOGY BRACE See Rx Instructions .Route .MEDSUPPLY Qty: 1 0RF Rx Instructions: As directed metformin 1,000 mg tablet 1,000 mg PO BID Qty: 180 0RF Rx Instructions: Take one tablet by mouth twice a day. lisinopril 40 mg tablet 30 mg PO QAM aspirin 81 mg Tablet,Delayed Release (Dr/Ec) 81 mg PO QAM metoprolol tartrate 50 mg tablet 100 mg PO BID cetirizine 10 mg tablet 10 mg PO BID PRN (Reason: Allergic Symptoms) insulin aspart U-100 [Novolog FlexPen U-100 Insulin] 100 unit/mL (3 mL) insulin pen 15 unit SUBCUT TID Rx Instructions: Administer 15 units subcut three times a day before meals. celecoxib 200 mg capsule 200 mg PO BID Qty: 20 0RF cyclobenzaprine 10 mg tablet 10 mg PO BID PRN (Reason: muscle spasm) Qty: 20 0RF atorvastatin 20 mg Tablet 20 mg PO QPM albuterol sulfate 90 mcg/actuation Hfa Aerosol Inhaler 2 puff INHALATION Q6H PRN (Reason: Shortness Of Breath) cholecalciferol (vitamin D3) [Vitamin D3] 25 mcg (1,000 unit) Tablet 25 mcg PO QAM ketorolac 10 mg tablet 10 mg PO TID PRN (Reason: pain) Qty: 10 0RF Hold Instructions: Resume on 08/30/23. isosorbide mononitrate 60 mg tablet extended release 24 hr 60 mg PO QAM promethazine-DM 6.25-15 mg/5 mL syrup 10 ml PO Q6H PRN (Reason: cough) Qty: 118 0RF Discharge Orders: Discharge ED (Routine); Ordered 11/19/23 Ordered By: Dorys Allen Referrals: Beverly Doss DO [Primary Care Provider] - Discharge Diet: Usual diet Discharge Activity: Increase activity as tolerated Patient Instructions: Blurred Vision (ED) Activity Restrictions/Additional Instructions: Based on the description of your symptoms we did check several things. I did look at some lab work just to make sure we were not dealing with any signs of any infection and, lab work appears unremarkable. I also scanned your head to make sure there were no signs of any growing masses, lesions, or bleeds causing interference with your optic nerves. We found no abnormalities on your head scan. Based of these negative findings, the big, emergent concerns regarding visual changes are ruled out here today but, there is still on examination we would like you to have. Please call your watch and clock repair clerk first thing in the morning to discuss having an eye examination. They have special lamps and medications to do a thorough examination of the inside of your eyeball to look at the back wall for any signs of abnormalities. We highly recommend you have this evaluation done to complete the evaluation of your visual changes from today. If you develop fever, stiff neck, vomiting, or loss of visual field either in the periphery or centrally located in your vision you need to return back to the ER immediately. Coding Level of Care Code ED [facility] for Christin Chang
[2023-11-18 22:28] LABS: Basophils # 0.1 10^3/uL (0.0-0.1); Eosinophils # 0.1 10^3/uL (0.0-0.8); Eosinophils % 0.9 %; Hematocrit 46.4 % (37-53); Lymphocytes # 2.9 10^3/uL (0.8-4.8); Lymphocytes % 28.1 %; Mean Corpuscular Hemoglobin 26.2 pg (27-33); Mean Corpuscular Volume 79.3 fl (82-101); Mean Platelet Volume 9.3 fL (7.4-10.4); Monocytes # 0.8 10^3/uL (0.2-0.9); Monocytes % 7.8 %; Neutrophils # 6.36 10^3/uL (1.8-7.7); Neutrophils % 61.6 %; Nucleated Red Blood Cells % 0 %; Platelet Count 297 10^3/cmm (157-399); Red Blood Count 5.85 10^6/uL (3.85-5.65); Red Cell Distribution Width 13.6 % (12.1-15.1)
[2023-11-18 22:44] LABS: Alanine Aminotransferase 28 U/L (0-41); Albumin Level 3.9 g/dL (3.5-5.2); Alkaline Phosphatase 98 U/L (40-130); Anion Gap 14.7 (5-19); Aspartate Amino Transferase 15 U/L (0-40); Blood Urea Nitrogen 13 mg/dL (6-20); Calcium 8.8 mg/dL (8.5-10.5); Carbon Dioxide 26 mmol/L (22-29); Chloride 99 mmol/L (98-107); Creatinine Clr Calc Pharmacy 223.3943; Globulin 2.8 g/dL (1.3-4.6); Glomerular Filtration Rate 122.5 mL/min (90-130); Glucose 231 mg/dL (65-115); Osmolality Calculated 289 mOsm/kg (285-295); Potassium 3.7 mmol/L (3.5-5.1); Sodium 136 mmol/L (136-145); Total Bilirubin 0.4 mg/dL (0.15-1.2); Total Protein 6.7 g/dL (6.6-8.7)
[2023-11-18 22:45] VITALS: BP 174/82; O2SAT 96
[2023-11-19 00:28] VITALS: BP 167/71; PULSE 79; RESP 18; O2SAT 97
== END 2023-11-19 00:31 | disposition home or self-care (01) ==
PROVIDERS: Emergency Provider Physician Assistant; PCP Family Medicine
DX: H53.9 Unspecified visual disturbance (principal); Z79.4 Long term (current) use of insulin; Z79.82 Long term (current) use of aspirin; Z79.84 Long term (current) use of oral hypoglycemic drugs; F17.290 Nicotine dependence, other tobacco product, uncomplicated; E11.42 Type 2 diabetes mellitus with diabetic polyneuropathy; I10 Essential (primary) hypertension
CPT/HCPCS: 36415; 36416; 70450; 80053; 82962; 85025; 99284

== ENCOUNTER → 2023-12-25 12:18 | Outpatient (BNVA) | payer MEDICAID, SELFPAY ==
[2022-03-15 08:05] VITALS: BP 132/80; BMI 61.5
== END ==
PROVIDERS: PCP Family Medicine; Visit Provider Internal Medicine Cardiovascular Disease
DX: I47.10 Supraventricular tachycardia, unspecified (principal); I10 Essential (primary) hypertension; E11.51 Type 2 diabetes mellitus with diabetic peripheral angiopathy without gangrene; Z79.4 Long term (current) use of insulin; R06.00 Dyspnea, unspecified; F32.9 Major depressive disorder, single episode, unspecified; F31.73 Bipolar disorder, in partial remission, most recent episode manic; F10.21 Alcohol dependence, in remission; E66.01 Morbid (severe) obesity due to excess calories; Z68.43 Body mass index [BMI] 50.0-59.9, adult
CPT/HCPCS: 99213

== ENCOUNTER → 2023-12-31 10:42 | Outpatient (BNVA) | payer MEDICAID, SELFPAY ==
[2022-03-15 08:05] VITALS: BP 132/80; BMI 61.5
== END ==
PROVIDERS: PCP Family Medicine; Visit Provider Podiatrist Foot & Ankle Surgery
DX: E11.42 Type 2 diabetes mellitus with diabetic polyneuropathy (principal); I73.9 Peripheral vascular disease, unspecified; L60.3 Nail dystrophy; Z79.4 Long term (current) use of insulin; Z79.84 Long term (current) use of oral hypoglycemic drugs
CPT/HCPCS: 11721

== ENCOUNTER 2024-01-10 12:15 | Emergency (ER) | payer OTHER, MEDICAID, SELFPAY ==
[2022-03-15 08:05] VITALS: BP 132/80; BMI 61.5
[2024-01-10 12:22] VITALS: BP 151/87; PULSE 75; RESP 18; TEMP 36.7; O2SAT 97; BMI 58.8
--- NOTE | 2024-01-10 13:20 | ED_ITS ---
HPI - Headache General: Chief Complaint: Headache Stated Complaint: headache Time Seen by Provider: 01/10/24 13:19 Source: patient Mode of arrival: ambulatory Limitations: no limitations History of Present Illness: Patient is a 43-year-old male here with complaints of a migraine headache over the past 2 days. He states he a has a longstanding history of migraine headaches. He states he does not see a neurologist or primary care headache specialist for his headaches. He has no prophylactic or abortive therapies at home. He states he usually just comes to the emergency department when he has a severe headache. He states he tried OTC analgesics without relief. He states his symptoms today feel identical to previous migraines. He has no neck pain or stiffness or fevers or visual changes. MD elicited complaint: headache and migraine Pertinent past history: migraines Onset (ago): day(s) Onset description: gradually Location: frontal and retro-orbital Severity: moderate Pain scale (0-10): 6 Exacerbating factors: light Relieving factors: nothing Associated symptoms: Reports no associated symptoms; Deny chest pain, confusion, fever(s), lightheadedness, malaise, nausea or vomiting Treatments prior to arrival: acetaminophen and ibuprofen Review of Systems Const: Denies: fever(s), chills, body aches, fatigue or malaise Eyes: Reports: photophobia; Denies: change in vision, blurry vision, floaters or seeing flashes ENMT: Denies: throat pain, odynophagia, ear or mastoid pain, nasal discharge, nasal congestion or sinus pain Card: Denies: chest pain, palpitations or lightheadedness Resp: Denies: dyspnea GI: Denies: nausea or vomiting Musc: Denies: neck pain Neuro: Reports: headache(s); Denies: numbness in extremities, weakness in extremities, sensory changes, lack of coordination, difficulty walking, frequent falls, dizziness, vertigo, confusion, behavioral changes, Slurred speech present or difficulty communicating thoughts PFSH ED PFSH: Medical History Morbid obesity Diabetic peripheral neuropathy associated with type 2 diabetes mellitus Hx MRSA infection DM type 2 (diabetes mellitus, type 2) Obstructive sleep apnea Morbid obesity Benign essential HTN Supraventricular tachycardia Alcohol dependence, in remission Bipolar disorder, in partial remission, most recent episode manic Posttraumatic stress disorder Binge eating disorder Tinea cruris Nephropathy Nephrolithiasis GERD (gastroesophageal reflux disease) Surgical History History of esophagogastroduodenoscopy (EGD) 6-7 yrs ago at [facility] [place] Hx of colonoscopy [facility] [place] History of ankle surgery S/P cholecystectomy S/P knee surgery S/P adenoidectomy S/P vasectomy S/P hernia repair H/O oral surgery S/P tendon repair S/P myringotomy with insertion of tube Family History Other Adopted Social History Smoking and tobacco/nicotine status: current every day tobacco/nicotine user e- cigarettes E-Cigarette Details: vaporizer device and without nicotine Alcohol intake: former Year of sobriety/quit date alcohol: 11mo Substance/Drug Use: current Other substance/drug use details: CBD Adopted: Yes Caregiver/support person: No Lives independently: Yes Household members: spouse Housing: Apartment Marital status: Number of children: 2 Highest education level completed: Some College, No Degree service: Yes status: Medically Discharged/Retired branch: [employer] Current occupational status: disabled Pets and animals: Yes Pets & animals: dog(s) Leisure activites: games Sexually active: Yes Do you think of yourself as: Straight/Heterosexual Current gender identity: Male Leda/Jainism: None Special leda needs: No Agree to transfusion: Yes Physical Exam Const: COMMON NORMALS: no acute distress, patient oriented x3, no limitations and alert GENERAL APPEARANCE: cooperative NUTRITIONAL APPEARANCE: obese morbidly obese (BMI is 58.8) ORIENTATION/CONSCIOUSNESS: Yes awake, Yes oriented to person, Yes oriented to place and Yes oriented to time HENMT: COMMON NORMALS: normocephalic and atraumatic HEAD & SCALP: normal to inspection, normocephalic and atraumatic FACE & SINUS: normal facial exam, sinuses nontender and face symmetric Eye: COMMON NORMALS: Equal, round and reactive pupils present and EOMs intact bilaterally GENERAL EYE: appearance normal, both eyes and all related structures and normal light reflex PUPIL: Yes Equal, round and reactive pupils present DIRECT OPHTHALMOSCOPY: Yes normal light reflex Neck/C-Spine: COMMON NORMALS: full ROM, no lymphadenopathy and no meningeal signs Neuro: TAMARA COMA SCALE: document GCS findings Tamara coma scale eye opening: Spontaneous [place] coma scale verbal response: Orientated Tamara coma scale motor response: Obey commands Tamara coma scale total score: 15 COMMON NORMALS: patient oriented x3, CN's II-XII intact bilaterally, moves all extremities, no focal motor deficits, no sensory deficits noted and gait normal SENSORIUM/ORIENTATION: Yes alert, Yes oriented to person, Yes oriented to place and Yes oriented to time MENINGEAL SIGNS: Yes no meningeal signs MOTOR EXAM: 5/5 motor strength present throughout Skin: COMMON NORMALS: no rashes or lesions noted GENERAL SKIN EXAM: no rashes or lesions noted Course Vital Signs: Vital signs: Vital Signs Temperature 98.1 F 01/10/24 12:22 Pulse Rate 75 01/10/24 12:22 Respiratory Rate 18 01/10/24 12:22 Blood Pressure 151/87 01/10/24 12:22 Pulse Oximetry 97 01/10/24 12:22 Oxygen Delivery Me thod Room Air 01/10/24 12:22 MDM - Headache Medical Decision Making Pain trending downward after IV fluids/medications given here. He feels comfortable going home at this time. Return precautions discussed. Differential Diagnosis Likely migraine, tension headache, headache and meningitis Medical Records I reviewed the patient's medical records. No radiology studies performed this visit Discharge Plan Discharge Patient Disposition: Home Clinical Impression: Headache, migraine Qualifiers: Migraine type: unspecified Status migrainosus presence: without status migrainosus Intractability: not intractable Qualified Code(s): G43.909 - Migraine, unspecified, not intractable, without status migrainosus Condition: Stable Prescriptions: No Action Lantus Solostar U-100 Insulin 100 unit/mL (3 mL) insulin pen 78 unit SUBCUT BID Qty: 15 3RF Rx Instructions: Inject 78 units twice a day. digoxin 125 mcg (0.125 mg) tablet 125 mcg PO QAM amlodipine 10 mg tablet 10 mg PO DAILY Jardiance 25 mg tablet 25 mg PO QAM (DME) Diabetic shoes See Rx Instructions .Route .MEDSUPPLY Qty: 1 0RF Rx Instructions: with one pair of custom molded inserts As directed by the shoe gumelissa (DME) Diabetic High Top Velcro Tennis Shoes with Custom Molded Orthotics See Rx Instructions .Route .MEDSUPPLY Qty: 1 0RF Rx Instructions: As directed HOME hydralazine 50 mg tablet 50 mg PO BID Qty: 60 5RF pantoprazole [Protonix] 40 mg tablet,delayed release (DR/EC) 40 mg PO BID 42 Days Qty: 84 1RF (DME) RIGHT KNEE DIRECTOR UTILIZATION MANAGEMENT BRACE See Rx Instructions .Route .MEDSUPPLY Qty: 1 0RF Rx Instructions: As directed metformin 1,000 mg tablet 1,000 mg PO BID Qty: 180 0RF Rx Instructions: Take one tablet by mouth twice a day. lisinopril 40 mg tablet 30 mg PO QAM aspirin 81 mg Tablet,Delayed Release (Dr/Ec) 81 mg PO QAM metoprolol tartrate 50 mg tablet 100 mg PO BID cetirizine 10 mg tablet 10 mg PO BID PRN (Reason: Allergic Symptoms) insulin aspart U-100 [Novolog FlexPen U-100 Insulin] 100 unit/mL (3 mL) insulin pen 15 unit SUBCUT TID Rx Instructions: Administer 15 units subcut three times a day before meals. cyclobenzaprine 10 mg tablet 10 mg PO BID PRN (Reason: muscle spasm) Qty: 20 0RF atorvastatin 20 mg Tablet 20 mg PO QPM albuterol sulfate 90 mcg/actuation Hfa Aerosol Inhaler 2 puff INHALATION Q6H PRN (Reason: Shortness Of Breath) cholecalciferol (vitamin D3) [Vitamin D3] 25 mcg (1,000 unit) Tablet 25 mcg PO QAM ketorolac 10 mg tablet 10 mg PO TID PRN (Reason: pain) Qty: 10 0RF Hold Instructions: Resume on 08/30/23. isosorbide mononitrate 60 mg tablet extended release 24 hr 60 mg PO QAM promethazine-DM 6.25-15 mg/5 mL syrup 10 ml PO Q6H PRN (Reason: cough) Qty: 118 0RF Discharge Orders: Discharge ED (Routine); Ordered 01/10/24 Ordered By: Stephanie Brewer Referrals: Beverly Doss DO [Primary Care Provider] - Patient Instructions: Headache - Migraine (Adult), Migraine Headache (ED) Coding Level of Care Code ED [employer] Sales Manager for Valentinag Charlene
[2024-01-10] MEDS: ketorolac 60 mg/2 mL INJ 30 MG IVP (13:47)
[2024-01-10] MEDS: diphenhydrAMINE 50 mg/mL SDV 1mL IVP (13:48)
[2024-01-10] MEDS: ondansetron 2 mg/ML SDV 2 mL 4 MG IVP (13:50)
[2024-01-10] MEDS: sodium chloride 0.9% 1,000 ML 999 ML IV (13:51)
== END 2024-01-10 14:51 | disposition home or self-care (01) ==
PROVIDERS: Emergency Provider Physician Assistant; PCP Family Medicine
DX: G43.909 Migraine, unspecified, not intractable, without status migrainosus (principal)
CPT/HCPCS: 96374; 96375; 99284; J1200; J1885; J2405; J7030

== ENCOUNTER 2024-02-08 10:58 | Emergency (ER) | payer OTHER, MEDICAID, SELFPAY ==
[2022-03-15 08:05] VITALS: BP 132/80; BMI 61.5
[2024-02-08 10:59] VITALS: BP 167/120; PULSE 88; RESP 20; TEMP 36.6; O2SAT 95; BMI 59.5
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
[2024-02-08] MEDS: HYDROcodone-acetaminophen 5-325 mg Tablet 1 TAB PO (11:53)
[2024-02-08] MEDS: tetanus-dipt-pertussis 0.5 mL SDV IM (11:53)
[2024-02-08 12:10] VITALS: BP 158/101; PULSE 76; RESP 16; O2SAT 97
== END 2024-02-08 12:09 | disposition home or self-care (01) ==
PROVIDERS: Emergency Provider Emergency Medicine; PCP Family Medicine
DX: S61.412A Laceration without foreign body of left hand, initial encounter (principal); Z79.4 Long term (current) use of insulin; Z79.84 Long term (current) use of oral hypoglycemic drugs; F17.290 Nicotine dependence, other tobacco product, uncomplicated; E11.42 Type 2 diabetes mellitus with diabetic polyneuropathy; I10 Essential (primary) hypertension; W25.XXXA Contact with sharp glass, initial encounter; Z23 Encounter for immunization
CPT/HCPCS: 73130; 90715; 99283

== ENCOUNTER 2024-02-13 07:19 | Emergency (ER) | payer OTHER, MEDICAID, SELFPAY ==
[2022-03-15 08:05] VITALS: BP 132/80; BMI 61.5
--- NOTE | 2024-02-13 07:29 | XR_ITS ---
WS: [id number] XR finger LT min 2V [id number] REASON FOR EXAM: L 5th finger FINDINGS: Examination is unchanged compared to previous study of 02/08/2024. No fracture or dislocation identifie d. No radiopaque soft tissue foreign body. XR/XR finger LT min 2V [id number] IMPRESSION: Stable examination with no acute abnormality.
[2024-02-13 07:44] VITALS: BP 144/92; PULSE 74; RESP 16; TEMP 36.9; O2SAT 98; BMI 58.8
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
[2024-02-13 09:30] VITALS: BP 124/74; PULSE 76; O2SAT 96
== END 2024-02-13 09:31 | disposition home or self-care (01) ==
PROVIDERS: Emergency Provider Family Medicine; PCP Family Medicine
DX: S63.617A Unspecified sprain of left little finger, initial encounter (principal); Z79.4 Long term (current) use of insulin; Z79.84 Long term (current) use of oral hypoglycemic drugs; Z79.82 Long term (current) use of aspirin; F17.290 Nicotine dependence, other tobacco product, uncomplicated; E11.42 Type 2 diabetes mellitus with diabetic polyneuropathy; I10 Essential (primary) hypertension; W22.09XA Striking against other stationary object, initial encounter
CPT/HCPCS: 73140; 99283

== ENCOUNTER → 2024-02-18 08:55 | Outpatient (BNVA) | payer OTHER, MEDICAID, SELFPAY ==
[2022-03-15 08:05] VITALS: BP 132/80; BMI 61.5
== END ==
PROVIDERS: PCP Family Medicine; Visit Provider Student in an Organized Health Care Education/Training Program
DX: S63.617A Unspecified sprain of left little finger, initial encounter; M20.022 Boutonniere deformity of left finger(s); W22.8XXA Striking against or struck by other objects, initial encounter
CPT/HCPCS: 73130; 99213

== ENCOUNTER 2024-03-15 18:53 | Emergency (ER) | payer OTHER, MEDICAID, SELFPAY ==
[2024-02-27 15:55] VITALS: BP 126/80; BMI 59.7
[2024-03-15 18:59] VITALS: BP 182/130; PULSE 90; RESP 18; TEMP 36.7; O2SAT 98
--- NOTE | 2024-03-15 18:59 | XRR_ITS ---
PROCEDURE INFORMATION: Exam: XR Left Knee Exam date and time: 03/15/2024 7:48 PM Age: 43 years old Clinical indication: Pain; Knee; Left; Prior surgery; Surgery date: 6+ months; Surgery type: Lt meniscus repair x 2; Additional info: Lt lateral/posterior knee pain; HX lt meniscus repair x 2 TECHNIQUE: Imaging protocol: Radiologic exam of the left knee. Views: 3 views. COMPARISON: CR XR foot LT min 3V* [id number] 06/23/2022 9:30 PM FINDINGS: Bones/joints: Moderate tricompartmental osteoarthritis with marginal osteophytes. No evidence of acute fracture or subluxation. Small joint effusion. Questionable intra-articular bodies in the posterior joint recess. Soft tissues: No gross soft tissue abnormality. XR/XR knee LT 3V* [id number] IMPRESSION: 1. Osteoarthritis without evidence of acute fracture or subluxation.
--- NOTE | 2024-03-15 19:27 | ED_ITS ---
HPI - Extremity Problem General: Chief complaint: Extremity Injury, Lower Stated complaint: left knee/leg pain Time Seen by Provider: 03/15/24 19:26 History of Present Illness: 43-year-old male patient comes in today with injury to the left knee. Patient reports playing flag football this morning when he twisted his knee wrong. Patient does have a history of of meniscal tear to the knee in the past and has had to have repair of the tears. Patient does see Dr. Khanna for his orthopedic surgery. Patient appears nontoxic. Patient came in due to persistent pain. Patient reports injury occurred this morning around 8:00. Related Data Home Medications Medication Instructions Recorded Confirmed digoxin 125 mcg (0.125 mg) tablet 125 mcg PO QAM 09/21/19 02/25/24 aspirin 81 mg tablet,delayed 81 mg PO QAM 08/02/20 02/25/24 release metoprolol tartrate 50 mg tablet 100 mg PO BID 08/18/20 02/25/24 albuterol sulfate 90 mcg/actuation 2 puff inhalation Q6H PRN 09/26/21 02/25/24 aerosol inhaler Shortness Of Breath atorvastatin 20 mg tablet 20 mg PO QPM 09/26/21 02/25/24 cholecalciferol (vitamin D3) 25 25 mcg PO QAM 09/26/21 02/25/24 mcg (1,000 unit) tablet (Vitamin D3) amlodipine 10 mg tablet 10 mg PO DAILY 06/25/22 02/25/24 empagliflozin 25 mg tablet 25 mg PO QAM 06/25/22 02/25/24 (Jardiance) lisinopril 40 mg tablet 30 mg PO QAM 06/25/22 02/25/24 cetirizine 10 mg tablet 10 mg PO BID PRN Allergic Symptoms 01/26/23 02/25/24 insulin aspart U-100 100 unit/mL 15 unit SUBCUT TID 01/26/23 02/25/24 (3 mL) subcutaneous pen (Novolog FlexPen U-100 Insulin aspart) isosorbide mononitrate 60 mg 60 mg PO QAM 08/26/23 02/25/24 tablet,extended release 24 hr Lactobacillus acidophilus 1 tab PO DAILY 02/19/24 02/25/24 blood-glucose sensor 02/19/24 02/25/24 calcium polycarbophil 625 mg tablet 625 mg PO DAILY PRN 02/19/24 02/25/24 diclofenac sodium 1 % topical gel 2 g topical ONCE PRN 02/19/24 02/25/24 (Arthritis Pain (diclofenac)) glipizide 10 mg tablet 10 mg PO TID 02/19/24 02/25/24 lamotrigine 200 mg tablet 200 mg PO DAILY 02/19/24 02/25/24 omega 4-aal-ndg-fish oil 1,000 mg 1 cap PO TID 02/19/24 02/25/24 (120 mg-180 mg) capsule (Fish Oil) omeprazole 40 mg capsule,delayed 40 mg PO DAILY 02/19/24 02/25/24 release psyllium 2 tsp PO DAILY PRN 02/19/24 02/25/24 rosuvastatin 40 mg tablet 40 mg PO DAILY 02/19/24 02/25/24 Previous Rx's Medication Instructions Recorded metformin 1,000 mg tablet 1,000 mg PO BID #180 tabs 04/17/21 insulin glargine 100 unit/mL (3 78 unit (0.78 mL) SUBCUT BID #15 mL 06/09/21 mL) subcutaneous pen (Lantus Solostar U-100 Insulin) High Top Velcro Tennis Shoes #1 ea 06/18/22 ketorolac 10 mg tablet 10 mg PO TID PRN pain #10 tabs 11/24/22 hydralazine 50 mg tablet 50 mg PO BID #60 tabs 01/07/23 Diabetic shoes #1 ea 07/02/23 pantoprazole 40 mg tablet,delayed 40 mg PO BID 6 weeks #84 tabs 07/25/23 release (Protonix) promethazine-DM 6.25 mg-15 mg/5 mL 10 ml PO Q6H PRN cough #118 mL 09/16/23 oral syrup cyclobenzaprine 10 mg tablet 10 mg PO BID PRN muscle spasm #20 09/22/23 tabs RIGHT KNEE STATE SU[employer] BRACE #1 ea 11/14/23 diclofenac sodium 50 mg 50 mg PO BID PRN pain #14 tabs 02/08/24 tablet,delayed release diclofenac sodium 75 mg 75 mg PO Q12H PRN pain #20 tabs 02/13/24 tablet,delayed release PIP extension splint #1 ea 02/18/24 amoxicillin 875 mg tablet 875 mg PO BID 7 days #14 tabs 02/25/24 hydrocodone 5 mg-acetaminophen 325 1 tab PO Q6H PRN pain 3 days #10 03/15/24 mg tablet tabs Allergies Allergy/AdvReac Type Severity Reaction Status Date / Time fentanyl Allergy ADR-Itching Verified 03/15/24 19:03 morphine AdvReac ADR-Confusi Verified 03/15/24 19:03 on Review of Systems General: Reports: 10 or more systems reviewed and unremarkable except in HPI and below Musc: Reports: joint pain (Left knee pain) PFSH ED PFSH: Medical History Morbid obesity Diabetic peripheral neuropathy associated with type 2 diabetes mellitus Hx MRSA infection DM type 2 (diabetes mellitus, type 2) Obstructive sleep apnea Morbid obesity Benign essential HTN Supraventricular tachycardia Alcohol dependence, in remission Bipolar disorder, in partial remission, most recent episode manic Posttraumatic stress disorder Binge eating disorder Tinea cruris Nephropathy Nephrolithiasis GERD (gastroesophageal reflux disease) Surgical History History of esophagogastroduodenoscopy (EGD) 6-7 yrs ago at [facility] [place] Hx of colonoscopy [facility] [place] History of ankle surgery S/P cholecystectomy S/P knee surgery S/P adenoidectomy S/P vasectomy S/P hernia repair H/O oral surgery S/P tendon repair S/P myringotomy with insertion of tube Family History Other Adopted Social History Smoking and tobacco/nicotine status: current some day tobacco/nicotine user e- cigarettes E-Cigarette Details: vaporizer device and without nicotine Alcohol intake: former Year of sobriety/quit date alcohol: 11mo Substance/Drug Use: current Other substance/drug use details: CBD Adopted: Yes Caregiver/support person: No Lives independently: Yes Household members: spouse Housing: Apartment Marital status: Number of children: 2 Highest education level completed: Some College, No Degree service: Yes status: Medically Discharged/Retired branch: [employer] Current occupational status: disabled Pets and animals: Yes Pets & animals: dog(s) Leisure activites: games Sexually active: Yes Do you think of yourself as: Straight/Heterosexual Current gender identity: Male Leda/Protestant: None Special leda needs: No Agree to transfusion: Yes Physical Exam Const: COMMON NORMALS: alert HENMT: COMMON NORMALS: normocephalic HEAD & SCALP: normocephalic Neck/C-Spine: COMMON NORMALS: full ROM Resp: COMMON NORMALS: normal respiratory effort and clear to auscultation bilaterally AUSCULTATION: clear to auscultation bilaterally Cardio: COMMON NORMALS: regular rate RATE: regular rate Back/Pelvis: COMMON NORMALS: thoracic and lumbar spine normal to inspection Extremity: LEFT LOWER EXTREMITY: Yes knee joint (No significant swelling, no redness.) Left knee: Yes inspection, Yes palpation and Yes ROM (Decreased range of motion due to pain) Neuro: SENSORIUM/ORIENTATION: Yes alert Skin: COMMON NORMALS: turgor normal GENERAL SKIN EXAM: turgor normal Course Vital Signs: Vital signs: Vital Signs Temperature 98.1 F 03/15/24 18:59 Pulse Rate 88 03/15/24 20:17 Respiratory Rate 18 03/15/24 18:59 Blood Pressure 162/92 03/15/24 20:17 Pulse Oximetry 98 03/15/24 20:17 Oxygen Delivery Me thod Room Air 03/15/24 19:42 MDM - Extremity (Nontraumatic) Medical Decision Making 43-year-old male patient comes in today for complaints of left knee pain. On exam patient appears nontoxic. Patient appears no acute distress. Respirations are even. Lungs are clear to auscultation. Patient has some joint line tenderness to the left knee with minimal swelling and no redness. Differential diagnosis includes meniscal injury, patellar fracture, osteoarthritis, sprain, tibial plateau fracture, ligament injury. Wet read of the x-ray of the knee noted no fracture or dislocation. Patient degenerative changes. Patient be treated for a sprain of the knee with recommendations for follow-up and reevaluation. Patient reported understanding. XR interpretation done by ED provider, pending radiology final review Discharge Plan Discharge Patient Disposition: Home Clinical Impression: Left knee sprain Qualifiers: Encounter type: initial encounter Involved ligament of knee: unspecified ligament Qualified Code(s): S83.92XA - Sprain of unspecified site of left knee, initial encounter Condition: Stable Prescriptions: New hydrocodone-acetaminophen 5-325 mg tablet 1 tab PO Q6H PRN (Reason: pain) 3 Days Qty: 10 0RF Rx Instructions: dx: knee sprain No Action Lantus Solostar U-100 Insulin 100 unit/mL (3 mL) insulin pen 78 unit SUBCUT BID Qty: 15 3RF Rx Instructions: Inject 78 units twice a day. digoxin 125 mcg (0.125 mg) tablet 125 mcg PO QAM amlodipine 10 mg tablet 10 mg PO DAILY Jardiance 25 mg tablet 25 mg PO QAM (DME) Diabetic shoes See Rx Instructions .Route .MEDSUPPLY Qty: 1 0RF Rx Instructions: with one pair of custom molded inserts As directed by the shoe roxanna diclofenac sodium [Arthritis Pain (diclofenac)] 1 % gel 2 g topical ONCE PRN Rx Instructions: apply to single elbow, wrist or hand; for hand includes palm/fingers/back of hand rosuvastatin 40 mg tablet 40 mg PO DAILY glipizide 10 mg tablet 10 mg PO TID Lactobacillus acidophilus Tablet,Chewable 1 tab PO DAILY lamotrigine 200 mg tablet 200 mg PO DAILY psyllium Powder 2 tsp PO DAILY PRN Rx Instructions: mix into at least 4 oz water or juice before administering calcium polycarbophil 625 mg tablet 625 mg PO DAILY PRN omeprazole 40 mg capsule,delayed release(DR/EC) 40 mg PO DAILY (DME) blood-glucose sensor Device See Rx Instructions .Route Rx Instructions: As directed omega 1-osm-csb-fish oil [Fish Oil] 1,000 mg (120 mg-180 mg) capsule 1 cap PO TID (DME) PIP extension splint See Rx Instructions .Route .MEDSUPPLY Qty: 1 0RF Rx Instructions: As directed amoxicillin 875 mg tablet 875 mg PO BID 7 Days Qty: 14 0RF (DME) Diabetic High Top Velcro Tennis Shoes with Custom Molded Orthotics See Rx Instructions .Route .MEDSUPPLY Qty: 1 0RF Rx Instructions: As directed HOME hydralazine 50 mg tablet 50 mg PO BID Qty: 60 5RF pantoprazole [Protonix] 40 mg tablet,delayed release (DR/EC) 40 mg PO BID 42 Days Qty: 84 1RF (DME) RIGHT KNEE STATE [employer]ACE See Rx Instructions .Route .MEDSUPPLY Qty: 1 0RF Rx Instructions: As directed metformin 1,000 mg tablet 1,000 mg PO BID Qty: 180 0RF Rx Instructions: Take one tablet by mouth twice a day. lisinopril 40 mg tablet 30 mg PO QAM aspirin 81 mg Tablet,Delayed Release (Dr/Ec) 81 mg PO QAM metoprolol tartrate 50 mg tablet 100 mg PO BID cetirizine 10 mg tablet 10 mg PO BID PRN (Reason: Allergic Symptoms) insulin aspart U-100 [Novolog FlexPen U-100 Insulin] 100 unit/mL (3 mL) insulin pen 15 unit SUBCUT TID Rx Instructions: Administer 15 units subcut three times a day before meals. cyclobenzaprine 10 mg tablet 10 mg PO BID PRN (Reason: muscle spasm) Qty: 20 0RF diclofenac sodium 50 mg tablet,delayed release (DR/EC) 50 mg PO BID PRN (Reason: pain) Qty: 14 0RF diclofenac sodium 75 mg tablet,delayed release (DR/EC) 75 mg PO Q12H PRN (Reason: pain) Qty: 20 0RF atorvastatin 20 mg Tablet 20 mg PO QPM albuterol sulfate 90 mcg/actuation Hfa Aerosol Inhaler 2 puff INHALATION Q6H PRN (Reason: Shortness Of Breath) cholecalciferol (vitamin D3) [Vitamin D3] 25 mcg (1,000 unit) Tablet 25 mcg PO QAM ketorolac 10 mg tablet 10 mg PO TID PRN (Reason: pain) Qty: 10 0RF Hold Instructions: Resume on 08/30/23. isosorbide mononitrate 60 mg tablet extended release 24 hr 60 mg PO QAM promethazine-DM 6.25-15 mg/5 mL syrup 10 ml PO Q6H PRN (Reason: cough) Qty: 118 0RF Discharge Orders: Discharge ED (Routine); Ordered 03/15/24 Ordered By: Wyatt Barker Referrals: Beverly Doss DO [Primary Care Provider] - Discharge Diet: Usual diet Discharge Activity: Increase activity as tolerated Patient Instructions: Knee Pain (ED) Activity Restrictions/Additional Instructions: Activity as tolerated. Use crutches to help with ambulation. Use ice along with acetaminophen and ibuprofen to control pain. Use hydrocodone for severe pain. Follow-up with primary care for further instructions. Return to ED for new concerns. Coding Level of Care Code ED Car Runner for Christin Chang
[2024-03-15] MEDS: HYDROcodone-acetaminophen 7.5-325 mg Tablet 1 TAB PO (19:41)
[2024-03-15 19:42] VITALS: BP 184/100; PULSE 98; O2SAT 98
[2024-03-15 20:17] VITALS: BP 162/92; PULSE 88; O2SAT 98
== END 2024-03-15 20:15 | disposition home or self-care (01) ==
PROVIDERS: Emergency Provider Nurse Practitioner Family; PCP Family Medicine
DX: S83.92XA Sprain of unspecified site of left knee, initial encounter (principal); Z79.4 Long term (current) use of insulin; Z79.84 Long term (current) use of oral hypoglycemic drugs; Z79.82 Long term (current) use of aspirin; E11.42 Type 2 diabetes mellitus with diabetic polyneuropathy; I10 Essential (primary) hypertension; F17.290 Nicotine dependence, other tobacco product, uncomplicated; X50.1XXA Overexertion from prolonged static or awkward postures, initial encounter; Y93.62 Activity, american flag or touch football
CPT/HCPCS: 73562; 99283

== ENCOUNTER → 2024-03-20 08:26 | Outpatient (BNVA) | payer OTHER, SELFPAY ==
[2024-02-27 15:55] VITALS: BP 126/80; BMI 59.7
== END ==
PROVIDERS: PCP Family Medicine; Visit Provider Student in an Organized Health Care Education/Training Program
DX: S83.92XA Sprain of unspecified site of left knee, initial encounter (principal); R03.0 Elevated blood-pressure reading, without diagnosis of hypertension; X58.XXXA Exposure to other specified factors, initial encounter
CPT/HCPCS: 99213

== ENCOUNTER → 2024-03-25 09:18 | Outpatient (BNVA) | payer MEDICAID, SELFPAY ==
[2024-02-27 15:55] VITALS: BP 126/80; BMI 59.7
== END ==
PROVIDERS: PCP Family Medicine; Referring Provider Family Medicine; Visit Provider Nurse Practitioner Family
DX: L91.8 Other hypertrophic disorders of the skin (principal); L82.1 Other seborrheic keratosis; D22.5 Melanocytic nevi of trunk; F17.200 Nicotine dependence, unspecified, uncomplicated; B07.8 Other viral warts
CPT/HCPCS: 17110; 99203

== ENCOUNTER → 2024-03-31 08:06 | Outpatient (BNVA) | payer OTHER, SELFPAY ==
[2024-02-27 15:55] VITALS: BP 126/80; BMI 59.7
== END ==
PROVIDERS: PCP Family Medicine; Visit Provider Podiatrist Foot & Ankle Surgery
DX: S63.619A Unspecified sprain of unspecified finger, initial encounter (principal); M20.029 Boutonniere deformity of unspecified finger(s); X58.XXXA Exposure to other specified factors, initial encounter
CPT/HCPCS: 11721; 73130; 99213

== ENCOUNTER 2024-04-02 12:23 | Outpatient (RCR) | payer SELFPAY ==
[2024-02-27 15:55] VITALS: BP 126/80; BMI 59.7
== END 2024-04-02 23:59 | disposition home or self-care (01) ==
LOC: SOT 12:23
PROVIDERS: Visit Provider Student in an Organized Health Care Education/Training Program
DX: M20.022 Boutonniere deformity of left finger(s) (principal)
CPT/HCPCS: 97110; 97165; L3925

== ENCOUNTER 2024-04-03 06:00 | Outpatient (RCR) | payer OTHER, SELFPAY ==
[2024-02-27 15:55] VITALS: BP 126/80; BMI 59.7
== END 2024-05-02 23:59 | disposition home or self-care (01) ==
LOC: SOT 06:00
PROVIDERS: Visit Provider Student in an Organized Health Care Education/Training Program
DX: M20.022 Boutonniere deformity of left finger(s) (principal)
CPT/HCPCS: 97110; 97140

== ENCOUNTER 2024-04-04 16:08 | Emergency (ER) | payer OTHER, MEDICAID, SELFPAY ==
[2024-02-27 15:55] VITALS: BP 126/80; BMI 59.7
[2024-04-04 16:16] VITALS: BP 164/118; PULSE 84; RESP 20; TEMP 36.8; O2SAT 98; BMI 60.2
--- NOTE | 2024-04-04 16:25 | XRR_ITS ---
PROCEDURE INFORMATION: Exam: XR Left Knee Exam date and time: 04/04/2024 5:09 PM Age: 43 years old Clinical indication: Left; Prior surgery; Surgery date: 6+ months; Surgery type: Lt meniscus repair x 2; Patient HX: Lt knee pain after twisting incident/hearing pop today; HX meniscus repair x 2 per PT TECHNIQUE: Imaging protocol: Radiologic exam of the left knee. Views: 1 or 2 views. COMPARISON: DX XR knee LT 3V* [id number] 03/17/2024 12:19 PM FINDINGS: Bones/joints: Tricompartmental small marginal osteophyte formation. Soft tissues: Normal. XR/XR knee LT 1-2V [id number] IMPRESSION: There are tricompartmental small marginal osteophyte formations consistent with primary osteoarthritic change.
--- NOTE | 2024-04-04 18:38 | ED_ITS ---
HPI - Extremity Problem General: Chief complaint: Extremity Injury, Lower Stated complaint: knee pain Time Seen by Provider: 04/04/24 17:56 History of Present Illness: 43-year-old male well-known to the emerg ency department. He states that he injured his knee twice now in 2 weeks bowling. Earlier this afternoon, he felt and heard a pop in his knee during bowling. He had immediate pain. He had some swelling. Pain is to the back of the knee he says. He has significant increa sed pain with weightbearing Related Data Home Medications Medication Instructions Recorded Confirmed digoxin 125 mcg (0.125 mg) tablet 125 mcg PO QAM 09/21/19 03/31/24 aspirin 81 mg tablet,delayed 81 mg PO QAM 08/02/20 03/31/24 release metoprolol tartrate 50 mg tablet 100 mg PO BID 08/18/20 03/31/24 albuterol sulfate 90 mcg/actuation 2 puff inhalation Q6H PRN 09/26/21 03/31/24 aerosol inhaler Shortness Of Breath atorvastatin 20 mg tablet 20 mg PO QPM 09/26/21 03/31/24 cholecalciferol (vitamin D3) 25 25 mcg PO QAM 09/26/21 03/31/24 mcg (1,000 unit) tablet (Vitamin D3) amlodipine 10 mg tablet 10 mg PO DAILY 06/25/22 03/31/24 empagliflozin 25 mg tablet 25 mg PO QAM 06/25/22 03/31/24 (Jardiance) lisinopril 40 mg tablet 30 mg PO QAM 06/25/22 03/31/24 cetirizine 10 mg tablet 10 mg PO BID PRN Allergic Symptoms 01/26/23 03/31/24 insulin aspart U-100 100 unit/mL 15 unit SUBCUT TID 01/26/23 03/31/24 (3 mL) subcutaneous pen (Novolog FlexPen U-100 Insulin aspart) isosorbide mononitrate 60 mg 60 mg PO QAM 08/26/23 03/31/24 tablet,extended release 24 hr Lactobacillus acidophilus 1 tab PO DAILY 02/19/24 03/31/24 blood-glucose sensor 02/19/24 03/31/24 calcium polycarbophil 625 mg tablet 625 mg PO DAILY PRN 02/19/24 03/31/24 diclofenac sodium 1 % topical gel 2 g topical ONCE PRN 02/19/24 03/31/24 (Arthritis Pain (diclofenac)) glipizide 10 mg tablet 10 mg PO TID 02/19/24 03/31/24 lamotrigine 200 mg tablet 200 mg PO DAILY 02/19/24 03/31/24 omega 7-unb-xap-fish oil 1,000 mg 1 cap PO TID 02/19/24 03/31/24 (120 mg-180 mg) capsule (Fish Oil) omeprazole 40 mg capsule,delayed 40 mg PO DAILY 02/19/24 03/31/24 release psyllium 2 tsp PO DAILY PRN 02/19/24 03/31/24 rosuvastatin 40 mg tablet 40 mg PO DAILY 02/19/24 03/31/24 Previous Rx's Medication Instructions Recorded metformin 1,000 mg tablet 1,000 mg PO BID #180 tabs 04/17/21 insulin glargine 100 unit/mL (3 78 unit (0.78 mL) SUBCUT BID #15 mL 06/09/21 mL) subcutaneous pen (Lantus Solostar U-100 Insulin) High Top Velcro Tennis Shoes #1 ea 06/18/22 ketorolac 10 mg tablet 10 mg PO TID PRN pain #10 tabs 11/24/22 hydralazine 50 mg tablet 50 mg PO BID #60 tabs 01/07/23 Diabetic shoes #1 ea 07/02/23 pantoprazole 40 mg tablet,delayed 40 mg PO BID 6 weeks #84 tabs 07/25/23 release (Protonix) promethazine-DM 6.25 mg-15 mg/5 mL 10 ml PO Q6H PRN cough #118 mL 09/16/23 oral syrup cyclobenzaprine 10 mg tablet 10 mg PO BID PRN muscle spasm #20 09/22/23 tabs 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 #1 ea 11/14/23 diclofenac sodium 75 mg 75 mg PO Q12H PRN pain #20 tabs 02/13/24 tablet,delayed release PIP extension splint #1 ea 02/18/24 amoxicillin 875 mg tablet 875 mg PO BID 7 days #14 tabs 02/25/24 prednisone 20 mg tablet 20 mg PO DAILY #15 tabs 03/20/24 diclofenac sodium 50 mg 50 mg PO BID PRN pain #14 tabs 04/04/24 tablet,delayed release Allergies Allergy/AdvReac Type Severity Reaction Status Date / Time fentanyl Allergy ADR-Itching Verified 03/31/24 08:37 morphine AdvReac ADR-Confusi Verified 03/31/24 08:37 on PFSH ED PFSH: Medical History Morbid obesity Diabetic peripheral neuropathy associated with type 2 diabetes mellitus Hx MRSA infection DM type 2 (diabetes mellitus, type 2) Obstructive sleep apnea Morbid obesity Benign essential HTN Supraventricular tachycardia Alcohol dependence, in remission Bipolar disorder, in partial remission, most recent episode manic Posttraumatic stress disorder Binge eating disorder Tinea cruris Nephropathy Nephrolithiasis GERD (gastroesophageal reflux disease) Surgical History [place]) [place] [facility] [place] [facility] [place] of ankle surgery S/P cholecystectomy S/P knee surgery S/P adenoidectomy S/P vasectomy S/P hernia repair H/O oral surgery S/P tendon repair S/P myringotomy with insertion of tube Family History Other Adopted Social History Smoking and tobacco/nicotine status: unknown if used tobacco/nicotine Alcohol intake: former Year of sobriety/quit date alcohol: 11mo Substance/Drug Use: current Other substance/drug use details: CBD Adopted: Yes Caregiver/support person: No Lives independently: Yes Household members: spouse Housing: Apartment Marital status: Number of children: 2 Highest education level completed: Some College, No Degree service: Yes status: Medically Discharged/Retired branch: [employer] Current occupational status: disabled Pets and animals: Yes Pets & animals: dog(s) Leisure activites: games Sexually active: Yes Do you think of yourself as: Straight/Heterosexual Current gender identity: Male Leda/Orthodoxy: None Special leda needs: No Agree to transfusion: Yes Physical Exam Const: COMMON NORMALS: no acute distress GENERAL APPEARANCE: cooperative; not ill appearing and not frail appearing HENMT: COMMON NORMALS: normocephalic, atraumatic and Normal external nose present HEAD & SCALP: normocephalic and atraumatic FACE & SINUS: normal facial exam and face symmetric NOSE: Normal external nose present Eye: COMMON NORMALS: Equal, round and reactive pupils present and EOMs intact bilaterally PUPIL: Yes Equal, round and reactive pupils present Neck/C-Spine: GENERAL: Yes trachea midline Chest: CHEST: Yes Symmetrical chest wall rise Resp: COMMON NORMALS: normal respiratory effort, No retractions and No use of accessory muscles Cardio: COMMON NORMALS: regular rate and regular rhythm RATE: regular rate RHYTHM: regular rhythm GI: COMMON NORMALS: Normal to inspection, nondistended, normoactive bowel sounds present Extremity: NARRATIVE EXTREMITY EXAM: Exam the left lower extremity reveals no deformity. There is a slight knee joint effusion. No joint line tenderness. No MCL or LCL tenderness. There is tenderness to the posterior knee. Extensor mechanism is intact. Neuro: TAMARA COMA SCALE: document GCS findings Tamara coma scale eye opening: Spontaneous Corning coma scale verbal response: Orientated Corning coma scale motor response: Obey commands Corning coma scale total score: 15 SENSORY EXAM: Yes extremities (intact) Psych: COMMON NORMALS: speech normal SPEECH: Yes normal speech Skin: COMMON NORMALS: no rashes or lesions noted GENERAL SKIN EXAM: no rashes or lesions noted Course Vital Signs: Vital signs: Vital Signs Temperature 98.3 F 04/04/24 16:16 Pulse Rate 71 04/04/24 18:47 Respiratory Rate 20 H 04/04/24 16:16 Blood Pressure 198/92 04/04/24 18:47 Pulse Oximetry 98 04/04/24 18:47 Oxygen Delivery Me thod Room Air 04/04/24 16:16 MDM - Extremity (Nontraumatic) Medical Decision Making 43-year-old male with knee injury. He has minimal effusion. No deformity. X- ray shows no fractures. There is tricompartmental osteoarthritic change. No ligamentous injury evidence. Potentially meniscal injury. Leg is too big for our knee immobilizer here. He is encouraged to compress with Phillip wrap. Use crutches for weightbearing until he is able to weight-bear on his own. He can follow-up with orthopedics or his primary. Ice and anti-inflammatories. Lab Data Radiology Impressions Knee X-Ray 04/04/24 16:25 IMPRESSION: There are tricompartmental small marginal osteophyte formations consistent with primary osteoarthritic change. All radiology interpretation(s) finalized by discharge Discharge Plan Discharge Patient Disposition: Home Clinical Impression: Injury of knee, left, Osteoarthritis of left knee Condition: Stable Prescriptions: Continued diclofenac sodium 50 mg tablet,delayed release (DR/EC) 50 mg PO BID PRN (Reason: pain) Qty: 14 0RF No Action Lantus Solostar U-100 Insulin 100 unit/mL (3 mL) insulin pen 78 unit SUBCUT BID Qty: 15 3RF Rx Instructions: Inject 78 units twice a day. digoxin 125 mcg (0.125 mg) tablet 125 mcg PO QAM amlodipine 10 mg tablet 10 mg PO DAILY Jardiance 25 mg tablet 25 mg PO QAM (DME) Diabetic shoes See Rx Instructions .Route .MEDSUPPLY Qty: 1 0RF Rx Instructions: with one pair of custom molded inserts As directed by the shoe roxanna prednisone 20 mg tablet 20 mg PO DAILY Qty: 15 0RF Rx Instructions: 60mg X3 days 40mg X2 days 20mg X 2days diclofenac sodium [Arthritis Pain (diclofenac)] 1 % gel 2 g topical ONCE PRN Rx Instructions: apply to single elbow, wrist or hand; for hand includes palm/fingers/back of hand rosuvastatin 40 mg tablet 40 mg PO DAILY glipizide 10 mg tablet 10 mg PO TID Lactobacillus acidophilus Tablet,Chewable 1 tab PO DAILY lamotrigine 200 mg tablet 200 mg PO DAILY psyllium Powder 2 tsp PO DAILY PRN Rx Instructions: mix into at least 4 oz water or juice before administering calcium polycarbophil 625 mg tablet 625 mg PO DAILY PRN omeprazole 40 mg capsule,delayed release(DR/EC) 40 mg PO DAILY (DME) blood-glucose sensor Device See Rx Instructions .Route Rx Instructions: As directed omega 6-wre-srz-fish oil [Fish Oil] 1,000 mg (120 mg-180 mg) capsule 1 cap PO TID (DME) PIP extension splint See Rx Instructions .Route .MEDSUPPLY Qty: 1 0RF Rx Instructions: As directed amoxicillin 875 mg tablet 875 mg PO BID 7 Days Qty: 14 0RF (DME) Diabetic High Top Velcro Tennis Shoes with Custom Molded Orthotics See Rx Instructions .Route .MEDSUPPLY Qty: 1 0RF Rx Instructions: As directed HOME hydralazine 50 mg tablet 50 mg PO BID Qty: 60 5RF pantoprazole [Protonix] 40 mg tablet,delayed release (DR/EC) 40 mg PO BID 42 Days Qty: 84 1RF (DME) 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 See Rx Instructions .Route .MEDSUPPLY Qty: 1 0RF Rx Instructions: As directed metformin 1,000 mg tablet 1,000 mg PO BID Qty: 180 0RF Rx Instructions: Take one tablet by mouth twice a day. lisinopril 40 mg tablet 30 mg PO QAM aspirin 81 mg Tablet,Delayed Release (Dr/Ec) 81 mg PO QAM metoprolol tartrate 50 mg tablet 100 mg PO BID cetirizine 10 mg tablet 10 mg PO BID PRN (Reason: Allergic Symptoms) insulin aspart U-100 [Novolog FlexPen U-100 Insulin] 100 unit/mL (3 mL) in sulin pen 15 unit SUBCUT TID Rx Instructions: Administer 15 units subcut three times a day before meals. cyclobenzaprine 10 mg tablet 10 mg PO BID PRN (Reason: muscle spasm) Qty: 20 0RF diclofenac sodium 75 mg tablet,delayed release (DR/EC) 75 mg PO Q12H PRN (Reason: pain) Qty: 20 0RF atorvastatin 20 mg Tablet 20 mg PO QPM albuterol sulfate 90 mcg/actuation Hfa Aerosol Inhaler 2 puff INHALATION Q6H PRN (Reason: Shortness Of Breath) cholecalciferol (vitamin D3) [Vitamin D3] 25 mcg (1,000 unit) Tablet 25 mcg PO QAM ketorolac 10 mg tablet 10 mg PO TID PRN (Reason: pain) Qty: 10 0RF Hold Instructions: Resume on 08/30/23. isosorbide mononitrate 60 mg tablet extended release 24 hr 60 mg PO QAM promethazine-DM 6.25-15 mg/5 mL syrup 10 ml PO Q6H PRN (Reason: cough) Qty: 118 0RF Discharge Orders: Discharge ED (Routine); Ordered 04/04/24 Ordered By: Gallito Branch Patient Instructions: Osteoarthritis (ED), Swollen Knee Joint (ED), Knee Pain (ED), Opioid Safety, Pain Management Activity Restrictions/Additional Instructions: Ice frequently, especially for the next 48 hours. Medication as directed. Use crutches for weightbearing as tolerated. Follow-up with your doctor next week. Coding Level of Care Code ED Substation Electrician for Christin Chang
[2024-04-04] MEDS: oxyCODONE-APAP 5-325 mg Tablet 2 TAB PO (18:42)
[2024-04-04] MEDS: ketorolac 30 mg/mL INJ 60 MG IM (18:43)
[2024-04-04 18:47] VITALS: BP 198/92; PULSE 71; O2SAT 98
== END 2024-04-04 18:47 | disposition home or self-care (01) ==
PROVIDERS: Emergency Provider Emergency Medicine
DX: S89.92XA Unspecified injury of left lower leg, initial encounter (principal); M17.12 Unilateral primary osteoarthritis, left knee; X58.XXXA Exposure to other specified factors, initial encounter; Y93.54 Activity, bowling; E11.42 Type 2 diabetes mellitus with diabetic polyneuropathy; I10 Essential (primary) hypertension; Z79.84 Long term (current) use of oral hypoglycemic drugs; Z79.82 Long term (current) use of aspirin; Z79.4 Long term (current) use of insulin
CPT/HCPCS: 73560; 96372; 99284; J1885

== ENCOUNTER → 2024-04-15 08:18 | Outpatient (BNVA) | payer MEDICAID, SELFPAY ==
[2024-02-27 15:55] VITALS: BP 126/80; BMI 59.7
== END ==
PROVIDERS: Visit Provider Nurse Practitioner Family
DX: L91.8 Other hypertrophic disorders of the skin (principal); F17.200 Nicotine dependence, unspecified, uncomplicated; B07.8 Other viral warts
CPT/HCPCS: 11900; 99213

== ENCOUNTER → 2024-05-12 08:13 | Outpatient (BNVA) | payer OTHER, SELFPAY ==
[2024-02-27 15:55] VITALS: BP 126/80; BMI 59.7
== END ==
PROVIDERS: PCP Family Medicine; Visit Provider Student in an Organized Health Care Education/Training Program
DX: S63.617A Unspecified sprain of left little finger, initial encounter; M20.022 Boutonniere deformity of left finger(s); X58.XXXA Exposure to other specified factors, initial encounter
CPT/HCPCS: 99213

== ENCOUNTER 2024-05-21 09:46 | Outpatient (RCR) | payer SELFPAY ==
[2024-02-27 15:55] VITALS: BP 126/80; BMI 59.7
== END 2024-06-02 23:59 | disposition home or self-care (01) ==
LOC: SOT 09:46
PROVIDERS: Visit Provider Student in an Organized Health Care Education/Training Program
DX: M20.022 Boutonniere deformity of left finger(s) (principal)
CPT/HCPCS: 97110; 97140; 97165

== ENCOUNTER 2024-06-03 06:30 | Outpatient (RCR) | payer SELFPAY ==
[2024-02-27 15:55] VITALS: BP 126/80; BMI 59.7
== END 2024-07-03 23:59 | disposition home or self-care (01) ==
LOC: SOT 06:30
PROVIDERS: Visit Provider Student in an Organized Health Care Education/Training Program
DX: M20.022 Boutonniere deformity of left finger(s) (principal)
CPT/HCPCS: 97110; 97140

== ENCOUNTER → 2024-06-25 08:25 | Outpatient (BNVA) | payer SELFPAY ==
[2024-02-27 15:55] VITALS: BP 126/80; BMI 59.7
== END ==
PROVIDERS: Visit Provider Student in an Organized Health Care Education/Training Program
DX: S83.92XA Sprain of unspecified site of left knee, initial encounter (principal); R03.0 Elevated blood-pressure reading, without diagnosis of hypertension; X50.1XXA Overexertion from prolonged static or awkward postures, initial encounter; Y93.62 Activity, american flag or touch football
CPT/HCPCS: 20610; 99213; J3301

== ENCOUNTER → 2024-06-30 08:19 | Outpatient (BNVA) | payer OTHER, SELFPAY ==
[2024-02-27 15:55] VITALS: BP 126/80; BMI 59.7
== END ==
PROVIDERS: Visit Provider Podiatrist Foot & Ankle Surgery
DX: E11.8 Type 2 diabetes mellitus with unspecified complications (principal); E11.42 Type 2 diabetes mellitus with diabetic polyneuropathy; I73.9 Peripheral vascular disease, unspecified; L60.3 Nail dystrophy; S63.617A Unspecified sprain of left little finger, initial encounter; M20.022 Boutonniere deformity of left finger(s); X58.XXXA Exposure to other specified factors, initial encounter; Z79.4 Long term (current) use of insulin; Z79.84 Long term (current) use of oral hypoglycemic drugs
CPT/HCPCS: 11721; 99213

== ENCOUNTER → 2024-07-03 07:53 | Outpatient (BNVA) | payer MEDICAID, SELFPAY ==
[2024-02-27 15:55] VITALS: BP 126/80; BMI 59.7
== END ==
PROVIDERS: Visit Provider Nurse Practitioner Family
DX: L91.8 Other hypertrophic disorders of the skin (principal); L81.4 Other melanin hyperpigmentation; B07.8 Other viral warts; L29.89 Other pruritus; L53.8 Other specified erythematous conditions
CPT/HCPCS: 17110; 99213

== ENCOUNTER 2024-07-07 16:14 | Outpatient (CLI) | payer OTHER, SELFPAY ==
[2024-02-27 15:55] VITALS: BP 126/80; BMI 59.7
--- NOTE | 2024-07-07 07:15 | MR_ITS ---
WS: [id number] MRI LEFT KNEE NONCONTRAST TECHNIQUE: Axial PD, coronal PD fat sat, coronal PD, sagittal PD, and sagittal PD fat-sat images obtained. CLINICAL INFORMATION: R/O meniscal tear COMPARISON: MRI 2008 FINDINGS: Moderate tricompartmental arthritis advanced for patient this age. This is progressed since 2008. Distal quadriceps and patella tendons are intact. Hypertrophic patella. Grade III chondromalacia patella. Soft tissue edema about the joint line. Trace suprapatellar fluid. ACL and PCL are intact. Discoid configuration to the lateral meniscus. High-grade complex tear involving the posterior horn medial meniscus at the meniscal root with narrowing of the medial joint compartment. Medial and lateral collateral ligaments appear intact. Normal popliteal fossa. Fibular head appears normal. Osteophytosis along the dorsal tibial plateau. MR/MR knee LT wo con* [id number] IMPRESSION: 1. 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 2. Complex tear involving the posterior horn medial meniscus at the meniscal r oot with blunting. 3. Discoid configuration to the lateral meniscus. 4. Moderate chondromalacia patella. 5. Soft tissue edema along the joint line. 6. No other acute findings. Outbridge grading: grade III: partial-thickness cartilage loss with focal ulcer ation
== END 2024-07-07 16:15 | disposition home or self-care (01) ==
LOC: RAD 16:15
PROVIDERS: PCP Family Medicine; Visit Provider Student in an Organized Health Care Education/Training Program
DX: M13.862 Other specified arthritis, left knee (principal); S83.232A Complex tear of medial meniscus, current injury, left knee, initial encounter; X58.XXXA Exposure to other specified factors, initial encounter; R93.6 Abnormal findings on diagnostic imaging of limbs; M22.42 Chondromalacia patellae, left knee
CPT/HCPCS: 73721

== ENCOUNTER → 2024-09-01 10:41 | Outpatient (BNVA) | payer OTHER, SELFPAY ==
[2024-02-27 15:55] VITALS: BP 126/80; BMI 59.7
== END ==
PROVIDERS: PCP Family Medicine; Visit Provider Student in an Organized Health Care Education/Training Program
DX: S83.242A Other tear of medial meniscus, current injury, left knee, initial encounter (principal); M17.12 Unilateral primary osteoarthritis, left knee; E11.42 Type 2 diabetes mellitus with diabetic polyneuropathy; X58.XXXA Exposure to other specified factors, initial encounter; Z79.4 Long term (current) use of insulin; Z79.84 Long term (current) use of oral hypoglycemic drugs
CPT/HCPCS: 99214

== ENCOUNTER → 2024-09-02 10:33 | Outpatient (BNVA) | payer OTHER, SELFPAY ==
[2024-02-27 15:55] VITALS: BP 126/80; BMI 59.7
== END ==
PROVIDERS: PCP Family Medicine; Referring Provider Family Medicine; Visit Provider Student in an Organized Health Care Education/Training Program
DX: M65.342 Trigger finger, left ring finger (principal)
CPT/HCPCS: 73130; 99214

== ENCOUNTER 2024-09-06 19:35 | Emergency (ER) | payer OTHER, SELFPAY ==
[2024-02-27 15:55] VITALS: BP 126/80; BMI 59.7
[2024-09-06 19:41] VITALS: BP 181/146; PULSE 113; RESP 18; TEMP 36.4; O2SAT 96; BMI 56.2
--- NOTE | 2024-09-06 20:08 | XRR_ITS ---
PROCEDURE INFORMATION: Exam: XR Lumbosacral Spine Exam date and time: 09/06/2024 8:35 PM Age: 43 years old Clinical indication: Prior surgery; Surgery date: 6+ months; Surgery type: Hernia mesh; C/O low back pain. No injury. TECHNIQUE: Imaging protocol: Radiologic exam of the lumbosacral spine. Views: 2 or 3 views. COMPARISON: CR XR lumbar spine 2-3V* [id number] 08/12/2021 4:06 PM FINDINGS: Bones/joints: No acute fracture. Vertebral body heights are maintained. Spinal alignment is intact. Similar mild grade 1 retrolisthesis of L4 on L5. Soft tissues: Hernia repair with mesh. XR/XR lumbar spine 2-3V* [id number] IMPRESSION: No acute osseous findings.
--- NOTE | 2024-09-06 20:13 | W.ED.BACK ---
HPI - Back Pain/Injury General: Chief Complaint: Back Pain/Injury Stated Complaint: back pain Time Seen by Provider: 09/06/24 19:44 History of Present Illness: 43-year-old male patient well-known to the emergency department. He presents with upper lumbar back pain radiating down to his sacrum for the past 2 days or so. He does not remember an injury. He has had back pain on and off for several years. No radicular pain down the legs. No loss of bowel or bladder function. No groin anesthesia or saddle anesthesia. Related Data Home Medications ?Medication ?Instructions ?Recorded ?Confirmed digoxin 125 mcg (0.125 mg) tablet 125 mcg PO QAM 09/21/19 09/02/24 aspirin 81 mg tablet,delayed 81 mg PO QAM 08/02/20 09/02/24 release metoprolol tartrate 50 mg tablet 100 mg PO BID 08/18/20 09/02/24 albuterol sulfate 90 mcg/actuation 2 puff inhalation Q6H PRN 09/26/21 09/02/24 aerosol inhaler Shortness Of Breath atorvastatin 20 mg tablet 20 mg PO QPM 09/26/21 09/02/24 cholecalciferol (vitamin D3) 25 25 mcg PO QAM 09/26/21 09/02/24 mcg (1,000 unit) tablet (Vitamin D3) amlodipine 10 mg tablet 10 mg PO DAILY 06/25/22 09/02/24 empagliflozin 25 mg tablet 25 mg PO QAM 06/25/22 09/02/24 (Jardiance) lisinopril 40 mg tablet 30 mg PO QAM 06/25/22 09/02/24 cetirizine 10 mg tablet 10 mg PO BID PRN Allergic Symptoms 01/26/23 09/02/24 insulin aspart U-100 100 unit/mL 15 unit SUBCUT TID 01/26/23 09/02/24 (3 mL) subcutaneous pen (Novolog FlexPen U-100 Insulin aspart) isosorbide mononitrate 60 mg 60 mg PO QAM 08/26/23 09/02/24 tablet,extended release 24 hr Lactobacillus acidophilus 1 tab PO DAILY 02/19/24 09/02/24 blood-glucose sensor 02/19/24 09/02/24 calcium polycarbophil 625 mg tablet 625 mg PO DAILY PRN 02/19/24 09/02/24 diclofenac sodium 1 % topical gel 2 g topical ONCE PRN 02/19/24 09/02/24 (Arthritis Pain (diclofenac)) glipizide 10 mg tablet 10 mg PO TID 02/19/24 09/02/24 lamotrigine 200 mg tablet 200 mg PO DAILY 02/19/24 09/02/24 omega 1-jje-xht-fish oil 1,000 mg 1 cap PO TID 02/19/24 09/02/24 (120 mg-180 mg) capsule (Fish Oil) omeprazole 40 mg capsule,delayed 40 mg PO DAILY 02/19/24 09/02/24 release psyllium 2 tsp PO DAILY PRN 02/19/24 09/02/24 rosuvastatin 40 mg tablet 40 mg PO DAILY 02/19/24 09/02/24 Previous Rx's ?Medication ?Instructions ?Recorded metformin 1,000 mg tablet 1,000 mg PO BID #180 tabs 04/17/21 insulin glargine 100 unit/mL (3 78 unit (0.78 mL) SUBCUT BID #15 mL 06/09/21 mL) subcutaneous pen (Lantus Solostar U-100 Insulin) High Top Velcro Tennis Shoes #1 ea 06/18/22 ketorolac 10 mg tablet 10 mg PO TID PRN pain #10 tabs 11/24/22 Held on 08/28/23. Instructions: Resume on 08/30/23. hydralazine 50 mg tablet 50 mg PO BID #60 tabs 01/07/23 Diabetic shoes #1 ea 07/02/23 pantoprazole 40 mg tablet,delayed 40 mg PO BID 6 weeks #84 tabs 07/25/23 release (Protonix) promethazine-DM 6.25 mg-15 mg/5 mL 10 ml PO Q6H PRN cough #118 mL 09/16/23 oral syrup cyclobenzaprine 10 mg tablet 10 mg PO BID PRN muscle spasm #20 09/22/23 tabs RIGHT KNEE MANAGER REAL ESTATE BRACE #1 ea 11/14/23 PIP extension splint #1 ea 02/18/24 diclofenac sodium 50 mg 50 mg PO BID PRN pain #14 tabs 04/04/24 tablet,delayed release methocarbamol 750 mg tablet 750 mg PO TID #7 tabs 09/06/24 oxycodone-acetaminophen 7.5 mg-325 1 tab PO Q6H PRN pain #7 tabs 09/06/24 mg tablet (Percocet) Allergies Allergy/AdvReac Type Severity Reaction Status Date / Time fentanyl Allergy ADR-Itching Verified 09/02/24 10:55 morphine AdvReac ADR-Confusi Verified 09/02/24 10:55 on PFSH ED PFSH: Medical History Morbid obesity Diabetic peripheral neuropathy associated with type 2 diabetes mellitus Hx MRSA infection DM type 2 (diabetes mellitus, type 2) Obstructive sleep apnea Morbid obesity Benign essential HTN Supraventricular tachycardia Alcohol dependence, in remission Bipolar disorder, in partial remission, most recent episode manic Posttraumatic stress disorder Binge eating disorder Tinea cruris Nephropathy Nephrolithiasis GERD (gastroesophageal reflux disease) Surgical History [place]og[place] 6[place] [facility] [place] [facility] [place] of ankle surgery S/P cholecystectomy S/P knee surgery S/P adenoidectomy S/P vasectomy S/P hernia repair H/O oral surgery S/P tendon repair S/P myringotomy with insertion of tube Family History Other Adopted Social History Smoking and tobacco/nicotine status: current some day tobacco/nicotine user e-cigarettes E-Cigarette Details: vaporizer device and without nicotine Alcohol intake: former Year of sobriety/quit date alcohol: 11mo Substance/Drug Use: current Other substance/drug use details: CBD Adopted: Yes Caregiver/support person: No Lives independently: Yes Household members: spouse Housing: Apartment Marital status: Number of children: 2 Highest education level completed: Some College, No Degree service: Yes status: Medically Discharged/Retired branch: [employer] Current occupational status: disabled Pets and animals: Yes Pets & animals: dog(s) Leisure activites: games Sexually active: Yes Do you think of yourself as: Straight/Heterosexual Current gender identity: Male Leda/Pentecostal: None Special leda needs: No Agree to transfusion: Yes Physical Exam Const: COMMON NORMALS: no acute distress GENERAL APPEARANCE: cooperative; not ill appearing and not frail appearing HENMT: COMMON NORMALS: normocephalic, atraumatic and Normal external nose present HEAD & SCALP: normocephalic and atraumatic FACE & SINUS: normal facial exam and face symmetric NOSE: Normal external nose present Eye: COMMON NORMALS: Equal, round and reactive pupils present and EOMs intact bilaterally PUPIL: Yes Equal, round and reactive pupils present Neck/C-Spine: GENERAL: Yes trachea midline Chest: CHEST: Yes Symmetrical chest wall rise Resp: COMMON NORMALS: normal respiratory effort, No retractions, No use of accessory muscles and clear to auscultation bilaterally AUSCULTATION: clear to auscultation bilaterally Cardio: COMMON NORMALS: regular rate and regular rhythm RATE: regular rate RHYTHM: regular rhythm GI: COMMON NORMALS: Normal to inspection, nondistended, normoactive bowel sounds present Back/Pelvis: OTHER: Exam of the lumbar spine reveals L1 tenderness. It is in the midline. Minimal paraspinal tenderness. No muscular spasm. No significant pain lower or above. Extremity: COMMON NORMALS: no pedal edema Neuro: TAMARA COMA SCALE: document GCS findings Tamara coma scale eye opening: Spontaneous Tamara coma scale verbal response: Orientated Tamara coma scale motor response: Obey commands Tamara coma scale total score: 15 SENSORY EXAM: Yes extremities (intact) Psych: COMMON NORMALS: speech normal SPEECH: Yes normal speech Skin: COMMON NORMALS: no rashes or lesions noted GENERAL SKIN EXAM: no rashes or lesions noted Course Vital Signs: Vital signs: Vital Signs Temperature 97.6 F 09/06/24 19:41 Pulse Rate 104 H 09/06/24 21:43 Respiratory Rate 20 H 09/06/24 21:33 Blood Pressure 164/120 09/06/24 21:43 Pulse Oximetry 98 09/06/24 21:43 Oxygen Delivery Me thod Room Air 09/06/24 19:41 MDM - Back Pain/Injury Medical Decision Making X-ray does not show significant arthrosis, displaced narrowing, etc. Urinalysis is clean. He is improved after medication here. Short course of pain medication and muscle relaxers. Outpatient follow-up Labs Radiology Impressions Lumbar Spine X-Ray 09/06/24 20:08 IMPRESSION: No acute osseous findings. Laboratory Results Urine Color Yellow (Yellow) 09/06/24 20:00 Urine Appearance Clear (CLEAR) 09/06/24 20:00 Urine pH 6 (5-7) 09/06/24 20:00 Ur Specific [place] 1.020 (1.005-1.030) 09/06/24 20:00 Urine Protein 1+ (Negative) H 09/06/24 20:00 Urine Glucose (UA) 4+ (Normal) H 09/06/24 20:00 Urine Ketones Negative (Negative) 09/06/24 20:00 Urine Blood Neg (Negative) 09/06/24 20:00 Urine Nitrate Negative (Negative) 09/06/24 20:00 Urine Bilirubin Neg (Negative) 09/06/24 20:00 Urine Urobilinogen Norm mg/dL (Negative) 09/06/24 20:00 Ur Leukocyte Esterase Negative (Negative) 09/06/24 20:00 Urine RBC 0-2 /hpf (0-2) 09/06/24 20:00 Urine WBC 0-5 /hpf (0-5) 09/06/24 20:00 Ur Squamous Epith Cells 0-5 /hpf (0-5) 09/06/24 20:00 Amorphous Sediment Not Reportable 09/06/24 20:00 Urine Bacteria None seen /hpf (NONE) 09/06/24 20:00 Hyaline Casts 0-4 /lpf H 09/06/24 20:00 All radiology interpretation(s) finalized by discharge Discharge Plan Discharge Patient Disposition: Home Clinical Impression: Back pain of thoracolumbar region Condition: Stable Prescriptions: New oxycodone-acetaminophen [Percocet] 7.5-325 mg tablet 1 tab PO Q6H PRN (Reason: pain) Qty: 7 0RF methocarbamol 750 mg tablet 750 mg PO TID Qty: 7 0RF No Action Lantus Solostar U-100 Insulin 100 unit/mL (3 mL) insulin pen 78 unit SUBCUT BID Qty: 15 3RF Rx Instructions: Inject 78 units twice a day. digoxin 125 mcg (0.125 mg) tablet 125 mcg PO QAM amlodipine 10 mg tablet 10 mg PO DAILY Jardiance 25 mg tablet 25 mg PO QAM (DME) Diabetic shoes See Rx Instructions .Route .MEDSUPPLY Qty: 1 0RF Rx Instructions: with one pair of custom molded inserts As directed by the shoe roxanna diclofenac sodium [Arthritis Pain (diclofenac)] 1 % gel 2 g topical ONCE PRN Rx Instructions: apply to single elbow, wrist or hand; for hand includes palm/fingers/back of hand rosuvastatin 40 mg tablet 40 mg PO DAILY glipizide 10 mg tablet 10 mg PO TID Lactobacillus acidophilus Tablet,Chewable 1 tab PO DAILY lamotrigine 200 mg tablet 200 mg PO DAILY psyllium Powder 2 tsp PO DAILY PRN Rx Instructions: mix into at least 4 oz water or juice before administering calcium polycarbophil 625 mg tablet 625 mg PO DAILY PRN omeprazole 40 mg capsule,delayed release(DR/EC) 40 mg PO DAILY (DME) blood-glucose sensor Device See Rx Instructions .Route Rx Instructions: As directed omega 8-zxy-rss-fish oil [Fish Oil] 1,000 mg (120 mg-180 mg) capsule 1 cap PO TID (DME) PIP extension splint See Rx Instructions .Route .MEDSUPPLY Qty: 1 0RF Rx Instructions: As directed (DME) Diabetic High Top Velcro Tennis Shoes with Custom Molded Orthotics See Rx Instructions .Route .MEDSUPPLY Qty: 1 0RF Rx Instructions: As directed HOME hydralazine 50 mg tablet 50 mg PO BID Qty: 60 5RF pantoprazole [Protonix] 40 mg tablet,delayed release (DR/EC) 40 mg PO BID 42 Days Qty: 84 1RF (DME) RIGHT KNEE MANAGER REAL ESTATE BRACE See Rx Instructions .Route .MEDSUPPLY Qty: 1 0RF Rx Instructions: As directed metformin 1,000 mg tablet 1,000 mg PO BID Qty: 180 0RF Rx Instructions: Take one tablet by mouth twice a day. lisinopril 40 mg tablet 30 mg PO QAM aspirin 81 mg Tablet,Delayed Release (Dr/Ec) 81 mg PO QAM metoprolol tartrate 50 mg tablet 100 mg PO BID cetirizine 10 mg tablet 10 mg PO BID PRN (Reason: Allergic Symptoms) insulin aspart U-100 [Novolog FlexPen U-100 Insulin] 100 unit/mL (3 mL) insulin pen 15 unit SUBCUT TID Rx Instructions: Administer 15 units subcut three times a day before meals. cyclobenzaprine 10 mg tablet 10 mg PO BID PRN (Reason: muscle spasm) Qty: 20 0RF atorvastatin 20 mg Tablet 20 mg PO QPM albuterol sulfate 90 mcg/actuation Hfa Aerosol Inhaler 2 puff INHALATION Q6H PRN (Reason: Shortness Of Breath) cholecalciferol (vitamin D3) [Vitamin D3] 25 mcg (1,000 unit) Tablet 25 mcg PO QAM ketorolac 10 mg tablet 10 mg PO TID PRN (Reason: pain) Qty: 10 0RF isosorbide mononitrate 60 mg tablet extended release 24 hr 60 mg PO QAM promethazine-DM 6.25-15 mg/5 mL syrup 10 ml PO Q6H PRN (Reason: cough) Qty: 118 0RF diclofenac sodium 50 mg tablet,delayed release (DR/EC) 50 mg PO BID PRN (Reason: pain) Qty: 14 0RF Discharge Orders: Discharge ED (Routine); Ordered 09/06/24 Ordered By: Gallito Branch Referrals: Manda Raza MD [Primary Care Provider] - 1-3 days Patient Instructions: Back Pain (ED), Opioid Safety, Pain Management Activity Restrictions/Additional Instructions: Return for fever, vomiting, other concerning symptoms. See your doctor next week. Call for an appointment. Print Language: Comoran Coding Level of Care Code ED Dehydrogenation Supervisor for Christin Chang
[2024-09-06 20:20] LABS: Bacteria Urine None Seen /hpf; Hyaline Casts Urine 0-4 /lpf; RBC Urine 0-2 /hpf (0-2); Squamous Epithelial Cell Urine 0-5 /hpf (0-5); WBC Urine 0-5 /hpf (0-5)
[2024-09-06 20:26] LABS: Urine Appearance Clear (CLEAR); Urine Color Yellow (Yellow)
[2024-09-06 20:27] LABS: Bilirubin Urine Neg (Negative); Blood Urine Neg (Negative); Glucose Urine UA 4+ (Normal); Ketones Urine Negative (Negative); Leukocyte Esterase Urine Negative (Negative); Nitrate Urine Negative (Negative); Protein Urine 1+ (Negative); Urobilinogen Urine Norm (Negative); pH Urine 6 (5-7)
[2024-09-06 21:33] VITALS: RESP 20; O2SAT 96
[2024-09-06] MEDS: oxyCODONE-APAP 5-325 mg Tablet 2 TAB PO (21:33)
[2024-09-06] MEDS: ketorolac 60 mg/2 mL INJ IM (21:34)
[2024-09-06] MEDS: orphenadrine 30 mg/mL Inj 2 mL 60 MG IM (21:35)
[2024-09-06 21:43] VITALS: BP 164/120; PULSE 104; O2SAT 98
== END 2024-09-06 21:40 | disposition home or self-care (01) ==
PROVIDERS: Emergency Provider Emergency Medicine; PCP Family Medicine
DX: M54.89 Other dorsalgia (principal); Z79.82 Long term (current) use of aspirin; Z79.4 Long term (current) use of insulin; F17.290 Nicotine dependence, other tobacco product, uncomplicated; I10 Essential (primary) hypertension; E11.42 Type 2 diabetes mellitus with diabetic polyneuropathy
CPT/HCPCS: 72100; 81001; 96372; 99284; J1885; J2360; J9999

== ENCOUNTER 2024-09-10 09:58 | Outpatient (RCR) | payer OTHER, SELFPAY ==
[2024-02-27 15:55] VITALS: BP 126/80; BMI 59.7
== END 2024-09-29 12:21 | disposition home or self-care (01) ==
LOC: SPT 09:58
PROVIDERS: PCP Family Medicine; Visit Provider Family Medicine
DX: M54.2 Cervicalgia (principal)
CPT/HCPCS: 97110; 97140; 97161

== ENCOUNTER → 2024-09-11 10:37 | Outpatient (BNVA) | payer OTHER, SELFPAY ==
[2024-02-27 15:55] VITALS: BP 126/80; BMI 59.7
== END ==
PROVIDERS: PCP Family Medicine; Visit Provider Psychiatry & Neurology Psychiatry
DX: F31.73 Bipolar disorder, in partial remission, most recent episode manic (principal)
CPT/HCPCS: 80061; 83036

== ENCOUNTER 2024-09-22 10:04 | Outpatient (CLI) | payer OTHER, SELFPAY ==
[2024-09-15 12:35] VITALS: BP 201/110; BMI 56.7
[2024-09-22 10:52] LABS: Basophils # 0.1 10^3/uL (0.0-0.1); Basophils % 1.3 %; Eosinophils # 0.4 10^3/uL (0.0-0.8); Eosinophils % 4.7 %; Hematocrit 47.6 % (37-53); Lymphocytes # 2.4 10^3/uL (0.8-4.8); Lymphocytes % 30.9 %; Mean Corpuscular HGB Conc 33.4 g/dL (30-55); Mean Corpuscular Hemoglobin 26.5 pg (27-33); Mean Corpuscular Volume 79.5 fl (82-101); Mean Platelet Volume 9.7 fL (7.4-10.4); Monocytes # 0.6 10^3/uL (0.2-0.9); Monocytes % 7.5 %; Neutrophils # 4.36 10^3/uL (1.8-7.7); Neutrophils % 55.1 %; Nucleated Red Blood Cells % 0 %; Platelet Count 283 10^3/cmm (157-399); Red Blood Count 5.99 10^6/uL (3.85-5.65); Red Cell Distribution Width 13.2 % (12.1-15.1)
[2024-09-22 11:04] LABS: Estmated Average Glucose 269
[2024-09-22 11:10] LABS: Alanine Aminotransferase 33 U/L (0-41); Alkaline Phosphatase 90 U/L (40-130); Anion Gap 16.1 (5-19); Aspartate Amino Transferase 20 U/L (0-40); Blood Urea Nitrogen 8 mg/dL (6-20); Calcium 9.2 mg/dL (8.5-10.5); Carbon Dioxide 26 mmol/L (22-29); Chloride 102 mmol/L (98-107); Glomerular Filtration Rate 145.7 mL/min (90-130); Glucose 291 mg/dL (65-115); Osmolality Calculated 299 mOsm/kg (285-295); Potassium 4.1 mmol/L (3.5-5.1); Sodium 140 mmol/L (136-145); Total Bilirubin 0.6 mg/dL (0.15-1.2)
== END 2024-09-22 10:05 | disposition home or self-care (01) ==
LOC: LAB 10:05
PROVIDERS: PCP Family Medicine; Visit Provider Student in an Organized Health Care Education/Training Program
DX: Z01.818 Encounter for other preprocedural examination (principal); E11.9 Type 2 diabetes mellitus without complications; E11.42 Type 2 diabetes mellitus with diabetic polyneuropathy
CPT/HCPCS: 36415; 80053; 83036; 85025

== ENCOUNTER → 2024-09-25 10:38 | Outpatient (BNVA) | payer OTHER, SELFPAY ==
[2024-09-15 12:35] VITALS: BP 201/110; BMI 56.7
== END ==
PROVIDERS: PCP Family Medicine; Visit Provider Family Medicine
DX: Z01.818 Encounter for other preprocedural examination (principal)
CPT/HCPCS: 93005

== ENCOUNTER → 2024-09-29 08:29 | Outpatient (BNVA) | payer OTHER, SELFPAY ==
[2024-09-15 12:35] VITALS: BP 201/110; BMI 56.7
== END ==
PROVIDERS: PCP Family Medicine; Visit Provider Podiatrist Foot & Ankle Surgery
DX: E11.42 Type 2 diabetes mellitus with diabetic polyneuropathy (principal); L60.3 Nail dystrophy; L84 Corns and callosities; E11.8 Type 2 diabetes mellitus with unspecified complications; I73.9 Peripheral vascular disease, unspecified; Z79.84 Long term (current) use of oral hypoglycemic drugs; Z79.4 Long term (current) use of insulin
CPT/HCPCS: 11056; 11721

== ENCOUNTER 2024-12-28 07:39 | Emergency (ER) | payer OTHER, SELFPAY ==
[2024-09-15 12:35] VITALS: BP 201/110; BMI 56.7
--- OUTSIDE RECORDS SUMMARY | 2024-12-17 08:08 | XMS_ITS | Continuity of Care Document ---
Author Name [facility] Organization [facility] Care Team Providers Care Site Supervisor Name Role Phone [facility] Unavailable Unavailable Problems Combined list of problems from Department of Defense and Veterans Affairs facilities. It does not include entries that were removed or entered in error. Problem Status Onset Date Problem Type Date of Resolution Comments Source Alcohol abuse Active Condition [facility] Alcoholic fatty liver (SNOMED CT 15324336) Active Condition [facility] Allergic asthma (SNOMED CT 757968027) Active Condition [facility] Benign essential hypertension (SNOMED CT 9726777) Active Condition [facility] Binge eating disorder Active Condition [facility] Bipolar disorder (SNOMED CT 26024667) Active Condition [facility] Cardiomegaly (SCT 3275115) Active Condition Mar 06, 2023 Entered By: THOMAS BLACK Comment: needds 2d echo usApr 29, 2023 Entered By: THOMAS BLACK Comment: echo 03/2023 = 55% normal size and ejection, miled dilated left atrium, no significant change from echo on 09/2018 [facility] Chronic nonalcoholic liver disease (SNOMED CT 95523592) Active Condition [facility] COVID-19 Active Condition Jun 27 Entered By: THOMAS BLACK Comment: positive 06/03/2020 [facility] Depression Active Condition [facility] DM - Diabetes mellitus (SNOMED CT 25274050) Active Condition [facility] Dysphagia (SCT 89543189) Active Condition October 08, 2023 Entered By: THOMAS BLACK Comment: egd 08/28/23 = mild gastritis [facility] Gastroesophageal Reflux Disease (SNOMED CT 230930697) Active Condition [facility] GERD - Gastro-Esophageal Reflux Disease (SCT 326341280) Active Condition Sep 11, 2023 Entered By: THOMAS BLACK Comment: egd 08/28/23 biopsyApr 2023 Entered By: THOMAS BLACK Comment: watermelon ston=mach seeing superspecialist rfs in [facility] 2023 Entered By: THOMAS BLACK Comment: said on fu no watermelon stomach, all resolved, think it is maybe from ozempic [facility] [facility] [facility] Headache (SCT 11331973) Active Condition Jan 15, 2024 Entered By: THOMAS BLACK Comment: hx migraines [facility] [facility] History of Polyp of Colon (SCT 231045717) Active Condition Sep 25, 2023 Entered By: THOMAS BLACK Comment: 08/28/23 colonoscopy biopsy = precancer, needs fu 08/2028 [place] [facility] HLD - Hyperlipidemia (SNOMED CT 98142974) Active Condition [facility] [facility] [facility] Homeless (SNOMED CT 48267137) Active Condition [place] [facility] [facility] Housing problem Active Condition [facility] Intermittent explosive disorder Active Condition [place] [facility] Knee pain (SNOMED CT 60788854) Active Condition [facility] left thumb surgery Active Condition [facility] [facility] Low back pain Active Condition [facility] Low income Active Condition [facility] Morbid obesity (SNOMED CT 023924801) Active Condition [place] [facility] Nondependent alcohol abuse in remission Active Condition [facility] [facility] Obstructive sleep apnea Active Condition October 26, 2016 Entered By: EARNESTINE GRANDE Comment: per nonVA sleep study report received, date of service 06/16/12 [facility] Osteoarthritis of Knee (SCT 240440742) Active Condition Mar 01, 2023 Entered By: THOMAS BLACK Comment: right, ortho [facility] [facility] [facility] Pain in right foot Active Condition O ct 2021 Entered By: THOMAS BLACK Comment: needs repeat xrayFeb 2022 Entered By: THOMAS BLACK Comment: PEs Planus bilateral feet [place] [facility] [facility] Pain of left hip joint Active Condition October 25, 2023 Entered By: THOMAS BLACK Comment: minimal degenerative disease [facility] Peripheral Neuropathy With Type 2 Diabetes (SCT 4183570588674) Active Condition [facility] Posttraumatic stress disorder Active Condition [facility] [place] [facility] [facility] Social phobia Active Condition [facility] Supraventricular tachycardia Active Condition Mar 25, 2023 Entered By: THOMAS BLACK Comment: ed visit 03/21/23 atypical CP, DM gastroparesis, = saw cardiology 03/22/23Ma2023 Entered By: THOMAS BLACK Comment: atypical cp, sees Dr Rivas, SVT since on digoxin no more issue [facility] Trigger finger Active Condition [facility] Umbilical hernia (SNOMED CT 814631641) Active Condition [facility] Unresolved Active Condition [facility] Diagnosis: ICD-10-CM E11.65 Type 2 diabetes mellitus with hyperglycemia Active Diagnosis [facility] Diagnosis: ICD-10-CM Z71.89 Other specified counseling Active Diagnosis [facility] Diagnosis: ICD-10-CM M54.59 Other low back pain Active Diagnosis [facility] Diagnosis: ICD-10-CM Z00.01 Encounter for general adult medical exam w abnormal findings Active Diagnosis [facility] Diagnosis: ICD-10-CM R60.9 Edema, unspecified Active Diagnosis [facility] Diagnosis: ICD-10-CM E66.01 Morbid (severe) obesity due to excess calories Active Diagnosis [facility] Diagnosis: ICD-10-CM F31.76 Bipolar disorder, in full remis, most recent episode depress Active Diagnosis [facility] Diagnosis: ICD-10-CM M54.2 Cervicalgia Active Diagnosis [facility] Diagnosis: ICD-10-CM R21 Rash and other nonspecific skin eruption Active Diagnosis [facility] Diagnosis: ICD-10-CM F33.1 Major depressive disorder, recurrent, moderate Active Diagnosis [facility] Diagnosis: ICD-10-CM M25.562 Pain in left knee Active Diagnosis [facility] Diagnosis: ICD-10-CM F10.94 Alcohol use, unspecified with alcohol-induced mood disorder Active Diagnosis [facility] Diagnosis: ICD-10-CM F10.11 Alcohol abuse, in remission Active Diagnosis [facility] Diagnosis: ICD-10-CM F31.9 Bipolar disorder, unspecified Active Diagnosis [facility] Diagnosis: ICD-10-CM F10.20 Alcohol dependence, uncomplicated Active Diagnosis [facility] Diagnosis: ICD-10-CM H60.501 Unspecified acute noninfective otitis externa, right ear Active Diagnosis [facility] Diagnosis: ICD-10-CM Z02.89 Encounter for other administrative examinations Active Diagnosis [facility] Diagnosis: ICD-10-CM S91.341A Puncture wound with foreign body, right foot, init encntr Active Diagnosis [facility] Diagnosis: ICD-10-CM F50.81 Binge eating disorder Active Diagnosis [facility] Diagnosis: ICD-10-CM K21.9 Gastro-esophageal reflux disease without esophagitis Active Diagnosis [facility] Diagnosis: ICD-10-CM S76.012A Strain of muscle, fascia and tendon of left hip, init encntr Active Diagnosis [facility] Diagnosis: ICD-10-CM M25.552 Pain in left hip Active Diagnosis [facility] Diagnosis: ICD-10-CM S66.510A Strain intrns musc/fasc/tend r idx fngr at wrs/hnd lv, init Active Diagnosis [facility] Diagnosis: ICD-10-CM M79.641 Pain in right hand Active Diagnosis [facility] Diagnosis: ICD-10-CM M25.529 Pain in unspecified elbow Active Diagnosis [facility] Medications Combined list of outpatient medications from Department of Defense and Veterans Affairs facilities.Medications provided include 1) outpatient medications from the last 15 months, and 2) patient-reported medications. Medication Details Route Status Patient Instructions Prescription Expires Prescription Number Last Dispense Date Ordering Provider Order Date Order Qty Source AMLODIPINE BESYLATE 10MG TAB TAKE ONE TABLET BY MOUTH ONCE A DAY FOR HIGH BLOOD PRESSURE ORAL ACTIVE 11/07/2025 [id number] SIMIN BLACK 2024 90 [facility] AMLODIPINE BESYLATE 10MG TAB TAKE ONE TABLET BY MOUTH ONCE A DAY FOR HIGH BLOOD PRESSURE ORAL DISCONT INUED 10/25/2024 [id number] 5 SIMIN BLACK 2023 90 [facility] ASPIRIN 81MG TAB,EC TAKE ONE TABLET BY MOUTH ONCE A DAY FOR CARDIOVA SCULAR DISEASE TAKE WITH FOOD. ORAL ACTIVE 11/07/2025 [id number] 5 SIMIN BLACK 2024 120 [facility] ASPIRIN 81MG TAB,EC TAKE ONE TABLET BY MOUTH ONCE A DAY FOR CARDIOVA SCULAR DISEASE TAKE WITH FOOD. ORAL DISCONT INUED 10/25/2024 [id number] 5 SIMIN BLACK 2023 120 [facility] CALCIUM CARBONATE 650MG TAB TAKE ONE TABLET BY MOUTH TWICE A DAY FOR CALCIUM SUPPLEME NTATION ORAL ACTIVE 11/24/2025 [id number] 5 IRVING KIRKPATRICK [address] [place] [address] [facility] CALCIUM POLYCARBOPH [place] 625MG TAB TAKE ONE TABLET BY MOUTH TWICE A DAY FOR FIBER SUPPLEME NTATION ORAL 09/25/2024 [id number] 5 TANG VALVERDE 2023 180 [facility] CHOLECALCIF TING 25MCG (1,000UNIT) TAB TAKE THREE TABLETS BY MOUTH ONCE A DAY ORAL 03/25/2024 [id number] 4 SIMIN BLACK 2022 100 [facility] DEXTROMETHO RPHAN HBR 10MG/GUAIFE NESIN 100MG/5ML (AF & SF) LIQUID TAKE 10 ML BY MOUTH FOUR TIMES A DAY NEEDED FOR COUGH/CO NGESTION (TAKE WITH 8 OUNCE GLASS OF WATER) ORAL 09/20/2024 [id number] 4 SIMIN BLACK 2023 360 [facility] DICLOFENAC NA 1% GEL,TOP APPLY 2 GM TO AFFECTED AREA(S) THREE TIMES A DAY NEEDED FOR PAIN DO NOT EXCEED MORE THAN 16 GRAMS DAILY TO ANY LOWER EXTREMIT Y JOINT. NOT MORE THAN 8 GRAMS DAILY TO ANY UPPER EXTREMIT Y JOINT. MAX 32GM/DAY OVER ALL JOINTS. (MEASURE DOSE WITH RULER ATTACHED INSIDE BOX) TOPICA L ACTIVE 02/04/2025 [id number] 5 SIMIN BLACK 2023 100 [place] [facility] DICLOFENAC NA 1% GEL,TOP APPLY 2 GM TO AFFECTED AREA(S) THREE TIMES A DAY NEEDED FOR PAIN DO NOT EXCEED MORE THAN 16 GRAMS DAILY TO ANY LOWER EXTREMIT Y JOINT. NOT MORE THAN 8 GRAMS DAILY TO ANY UPPER EXTREMIT Y JOINT. MAX 32GM/DAY OVER ALL JOINTS. (MEASURE DOSE WITH RULER ATTACHED INSIDE BOX) TOPICA L DISCONT INUED 02/26/2024 [id number] 4 SIMIN BLACK 2022 300 [facility] DIGOXIN 125MCG TAB TAKE ONE TABLET BY MOUTH ONCE A DAY FOR HEART ARRHYTHM IAS ORAL ACTIVE 11/07/2025 [id number] 5 SIMIN BLACK 2024 90 [facility] DIGOXIN 125MCG TAB TAKE ONE TABLET BY MOUTH ONCE A DAY FOR HEART ARRHYTHM IAS ORAL DISCONT INUED 10/25/2024 [id number] 5 SIMIN BLACK 2023 90 [facility] EMPAGLIFLOZ IN 25MG TAB TAKE ONE TABLET BY MOUTH ONCE A DAY FOR DIABETES ORAL ACTIVE 01/17/2025 [id number] 5 TANG VALVERDE 2023 90 [facility] ERGOCALCIFE ROL 1,250MCG (50,000UNIT ) CAP TAKE ONE CAPSULE BY MOUTH EVERY WEEK FOR VITAMIN D DEFICIEN CY ORAL ACTIVE 02/18/2025 [id number] 5 SIMIN BLACK 2024 12 [facility] FISH OIL 1000MG CAP,ORAL TAKE 2 CAPSULES BY MOUTH THREE TIMES A DAY WITH MEALS ORAL ACTIVE TANG VALVERDE 2022 [place] [facility] FLUTICASONE PROPIONATE 50MCG/SPRAY SOLN,NASAL, 16GM INSTILL 1 SPRAY IN NOSTRIL( S) ONCE A DAY FOR RHINITIS (MUST BE USED DIRECTED FOR MINIMUM OF 21 DAYS TO PROVIDE ADEQUATE BENEFITS ) NASAL ACTIVE 02/24/2025 [id number] 5 [facility] 10[facility] TAB TAKE ONE TABLET BY MOUTH THREE TIMES A DAY BEFORE MEALS FOR DIABETES TAKE 30 MINUTES BEFORE EATING. ORAL DISCONT INUED BY PROVIDE R 10/25/2024 [id number] 5 SIMIN BLACK R 2023 270 [facility] HYDROCORTIS ONE 1% CREAM,TOP APPLY SPARINGL Y TO AFFECTED AREA(S) THREE TIMES A DAY NEEDED FOR SEBORRHE IC DERMATIT IS FOR EXTERNAL USE ONLY. APPLY SPARINGL Y. TOPICA L ACTIVE 11/21/2025 [id number] 5 SIMIN BLACK R 2024 90 [facility] INSULIN,ASP ART,HUMAN (EQV-NOVOLO G) 100 UNIT/ML,FLE XPEN,3ML INJECT 20 UNITS UNDER THE SKIN THREE TIMES A DAY BEFORE MEALS FOR DIABETES ADMINIST ER 10 MINUTES BEFORE FOOD DIRECTED . REFRIGER ATE UN-OPENE D PENS. DISCARD CARTRIDG E 28 DAYS AFTER OPENING. SUBCUT ANEOUS 10/25/2024 [id number] 5 SIMIN BLACK R 2023 20 [facility] INSULIN,GLA RGINE,HUMAN 100 UNIT/ML INJ,SOLOSTA R,3ML INJECT 85 UNITS UNDER THE SKIN TWICE A DAY FOR DIABETES ADMINIST ER AT SAME TIME EACH DAY DIRECTED . DISCARD ANY OPEN CARTRIDG E AFTER 28 DAYS. SUBCUT ANEOUS ACTIVE 04/04/2025 [id number] 5 SIMIN BLACK R 2023 50 [facility] INSULIN,GLA RGINE-YFGN 100UNIT/ML INJ PEN,3ML INJECT 85 UNITS UNDER THE SKIN TWICE A DAY FOR DIABETES ADMINIST ER AT SAME TIME EACH DAY DIRECTED . DISCARD ANY OPEN CARTRIDG E AFTER 28 DAYS. SUBCUT ANEOUS DISCONT INUED 10/25/2024 [id number] 4 SIMIN BLACK R 2023 30 [facility] ISOSORBIDE MONONITRATE 30MG TAB,SA TAKE ONE TABLET BY MOUTH TWICE A DAY FOR CHEST PAIN TAKE ON EMPTY STOMACH. SWALLOW WHOLE. DO NOT CRUSH OR CHEW. ORAL 10/25/2024 [id number] 5 SIMIN BLACK R 2023 180 [facility] KETOCONAZOL E 2% CREAM,TOP APPLY SPARINGL Y TO AFFECTED AREA(S) TWICE A DAY FOR SEBORRHE IC DERMATIT IS (EXTERNA L USE ONLY) TOPICA L ACTIVE 11/21/2025 [id number] 5 SIMIN BLACK R 2024 60 [facility] KETOCONAZOL E 2% SHAMPOO USE SHAMPOO TO AFFECTED AREA(S) ONCE A DAY FOR SEBORRHE IC DERMATIT IS (EXTERNA L USE ONLY) (SHAKE WELL) TOPICA L ACTIVE 11/21/2025 [id number] 5 SIMIN BLACK 2024 360 [facility] LACTOBACILL US ACIDOPHILUS TAB,CHEWABL E CHEW AND SWALLOW 2 CAP/TABS BY MOUTH THREE TIMES A DAY FOR NUTRITIO N/DIETAR Y SUPPLEME NTATION FOLLOW EACH DOSE WITH A SMALL AMOUNT OF MILK, FRUIT JUICE, OR WATER. KEEP REFRIGER ATED AFTER OPENING BOTTLE. ORAL 10/25/2024 [id number] 4 SIMIN BLACK 2023 600 [facility] LAMOTRIGINE 200MG TAB TAKE ONE-HALF TABLET BY MOUTH ONCE A DAY NEEDED FOR BIPOLAR DISORDER ORAL ACTIVE 06/24/2025 [id number] 5 THANH BLEVINS R 2024 45 [facility] LAMOTRIGINE 200MG TAB TAKE ONE-HALF TABLET BY MOUTH ONCE A DAY NEEDED FOR BIPOLAR DISORDER ORAL DISCONT INUED 03/24/2025 [id number] 5 THANH BLEVINS R 2023 45 [facility] LAMOTRIGINE 200MG TAB TAKE ONE-HALF TABLET BY MOUTH ONCE A DAY NEEDED FOR BIPOLAR DISORDER ORAL DISCONT INUED (EDIT) 10/25/2024 [id number] 4 SIMIN BLACK R 2023 45 [facility] LAMOTRIGINE 200MG TAB TAKE ONE-HALF TABLET BY MOUTH ONCE A DAY NEEDED FOR BIPOLAR DISORDER ORAL DISCONT INUED 10/25/2024 [id number] 4 SIMIN BLACK 2023 90 [facility] LISINOPRIL 40MG TAB TAKE TWO TABLETS BY MOUTH ONCE A DAY FOR HIGH BLOOD PRESSURE DOSE INCREASE ORAL ACTIVE 02/24/2025 [id number] 5 SIMIN BLACK 2023 180 [facility] LISINOPRIL 40MG TAB TAKE ONE AND ONE-HALF TABLETS BY MOUTH ONCE A DAY FOR HIGH BLOOD PRESSURE ORAL DISCONT INUED (EDIT) 10/25/2024 [id number] 4 SIMIN BLACK 2023 135 [facility] LURASIDONE HCL 40MG TAB TAKE ONE TABLET BY MOUTH ONCE A DAY FOR BIPOLAR DISORDER - TAKE WITH LARGEST MEAL OF THE DAY ORAL ACTIVE 03/24/2025 [id number] 5 THANH BLEVINS R 2023 90 [facility] LURASIDONE HCL 40MG TAB TAKE ONE TABLET BY MOUTH ONCE A DAY FOR BIPOLAR DISORDER - TAKE WITH LARGEST MEAL OF THE DAY ORAL DISCONT INUED (EDIT) 06/27/2024 [id number] 4 THANH BLEVINS R 2023 90 [facility] METFORMIN HCL 500MG 24HR TAB,SA TAKE ONE TABLET BY MOUTH TWICE A DAY FOR 1 WEEK, THEN TAKE TWO TABLETS EVERY MORNING AND TAKE ONE TABLET EVERY EVENING FOR 1 WEEK, THEN TAKE TWO TABLETS TWICE A DAY FOR DIABETES TAKE WITH FOOD. AVOID ALCOHOL. DISCONTI NUE BEFORE GETTING XRAY DYE. ORAL ACTIVE 11/24/2025 [id number] 5 IRVING KIRKPATRICK 2024 290 [facility] METFORMIN HCL 500MG 24HR TAB,SA TAKE TWO TABLETS BY MOUTH ONCE A DAY FOR DIABETES TAKE WITH FOOD. AVOID ALCOHOL. DISCONTI NUE BEFORE GETTING XRAY DYE. ORAL 10/25/2024 [id number] 4 SIMIN BLACK 2023 60 [facility] METOPROLOL TARTRATE 50MG TAB TAKE ONE-HALF TABLET BY MOUTH TWICE A DAY FOR HIGH BLOOD PRESSURE TAKE WITH OR IMMEDIAT ZECHARIAH FOLLOWIN G FOOD. ORAL 10/25/2024 [id number] 5 SIMIN BLACK R 2023 90 [facility] NALTREXONE (EQV-REVIA) 50MG TAB TAKE ONE TABLET BY MOUTH ONCE A DAY FOR ASSISTAN CE WITH DEPENDEN CY ORAL ACTIVE 06/24/2025 [id number] 5 THANH BLEVINS R [address] [place] [address] [facility] OMEPRAZOLE 40MG CAP,EC TAKE ONE CAPSULE BY MOUTH EVERY MORNING BEFORE A MEAL FOR GASTROES OPHAGEAL REFLUX DISEASE TAKE 30 MINUTES PRIOR TO FOOD. ORAL ACTIVE 11/07/2025 [id number] 5 SIMIN BLACK R 2024 90 [facility] OMEPRAZOLE 40MG CAP,EC TAKE ONE CAPSULE BY MOUTH EVERY MORNING BEFORE A MEAL FOR GASTROES OPHAGEAL REFLUX DISEASE TAKE 30 MINUTES PRIOR TO FOOD. ORAL DISCONT INUED 09/20/2024 [id number] 5 SIMIN BLACK 2023 90 [facility] PSYLLIUM PWDR,ORAL MIX AND DRINK 2 TEASPOON FULS BY MOUTH ONCE A DAY FOR CONSTIPA TION MIX IN GLASS OF WATER/JU ICE. FLAVOR SUBSTITU TIONS MAY/WILL OCCUR AND SPECIFIC VARIETIE S WILL NOT BE PROVIDED . ORAL 10/25/2024 [id number] 4 SIMIN BLACK 2023 1170 [facility] ROSUVASTATI N CA 40MG TAB TAKE ONE TABLET BY MOUTH EVERY EVENING FOR HIGH CHOLESTE ROL ORAL ACTIVE 01/17/2025 [id number] 5 TANG VALVERDE 2023 90 [facility] SIMVASTATIN 80MG TAB TAKE ONE-HALF TABLET BY MOUTH EVERY EVENING FOR HIGH CHOLESTE ROL ORAL DISCONT INUED (EDIT) 10/25/2024 [id number] 4 SIMIN BLACK 2023 45 [facility] SITAGLIPTIN (EQV-ZITUVI O) 100MG TAB TAKE ONE TABLET BY MOUTH ONCE A DAY FOR DIABETES ORAL DISCONT INUED BY PROVIDE R 01/17/2025 [id number] 5 ABRAMTANG 2023 90 [facility] TIRZEPATIDE 2.5MG/0.5ML INJ,SOLN PACK,4 INJECT 2.5MG(0. 5ML) UNDER THE SKIN EVERY WEEK FOR DIABETES (ADMINIS TER DOSE AT ANY TIME OF DAY, WITH OR WITHOUT MEALS) SUBCUT ANEOUS ACTIVE 11/25/2025 [id number] 5 IRVING KIRKPATRICK 2024 1 [facility] TIRZEPATIDE 2.5MG/0.5ML INJ,SOLN PACK,4 INJECT 2.5MG(0. 5ML) UNDER THE SKIN EVERY WEEK FOR DIABETES (ADMINIS TER DOSE AT ANY TIME OF DAY, WITH OR WITHOUT MEALS) SUBCUT ANEOUS DISCONT INUED (EDIT) 11/25/2025 [id number] 5 IRVING KIRKPATRICK 2024 1 [facility] Allergies, Adverse Reactions, Alerts Combined list of allergies from Department of Defense and Veterans Affairs facilities. It does not include entries that were removed or entered in error. Substance Category Reaction Severity Reaction type Status Date Reported Comments Source FENTANYL Propensity to adverse reactions to drug (finding) Urticaria active 5 [facility] MORPHINE Propensity to adverse reactions to drug (finding) Delirium active 3 [facility] OZEMPIC Propensity to adverse reactions to drug (finding) Constipation MODERATE active 4 [facility] Immunizations Combined list of available immunizations from the Department of Defense and Veterans Affairs facilities. Immunization Series Date Given Administered By Site Reaction Lot Number CVX Code Drug Trapper Animal Status Comments Source PNEUMOCOCCAL CONJUGATE PCV20, POLYSACCHARID E [id number] CONJUGATE, ADJUVANT, PF 2024 CÉSAR CLANCY LEFT DELTO ID [id number] 216 complet ed [facility] INFLUENZA, SPLIT VIRUS, TRIVALENT, PF 2 2023 140 complet ed HISTORICA L INFORMATI ON - FROM OTHER REGISTRY, [facility] TDAP 2 2023 115 complet ed HISTORICA L INFORMATI ON - FROM OTHER REGISTRY, [facility] INFLUENZA, INJECTABLE, QUADRIVALENT, PRESERVATIVE FREE 1 2021 150 complet ed HISTORICA L INFORMATI ON - FROM OTHER [facility], [facility] INFLUENZA, INJECTABLE, QUADRIVALENT, PRESERVATIVE FREE 2020 150 complet [facility] TDAP 2020 115 complet [facility] TDAP 1 2019 115 [facility] ed HISTORICA L INFORMATI ON - FROM OTHER REGISTRY, [facility] INFLUENZA, INJECTABLE, QUADRIVALENT, PRESERVATIVE FREE 2019 150 complet ed [facility] INFLUENZA, INJECTABLE, QUADRIVALENT, PRESERVATIVE FREE [address] [facility] INFLUENZA, SEASONAL, INJECTABLE, PRESERVATIVE FREE 2016 140 complet [facility] PNEUMOCOCCAL POLYSACCHARID E PPV23 2016 [facility], SEASONAL, INJECTABLE, PRESERVATIVE FREE 2014 140 [facility] INFLUENZA, UNSPECIFIED FORMULATION 2013 [facility], UNSPECIFIED FORMULATION [address] [facility] TDAP 2009 115 complet ed [facility] Results Combined list of recent chemistry, hematology and other laboratory results from Department of Defense and Veterans Affairs, ranging from 15 months to all on record, depending upon the facility. Order Name Results Value Reference Range Date Interpretation Specimen Comments Source LAMOTRIGIN E LAMOTRIGINE [MASS/VOLUM E] IN SERUM OR PLASMA <0.5ug /mL 2.5 - 15.0 11/03 L Specimen Type: SERUM Comment: This test was developed and its analytical performance characterist ics have been determined by [place] It has not been cleared or approved by the U.S. Food and Drug Administrati on. This assay has been validated pursuant to the CLIA regulations and is used for clinical purposes. Test Performed by [facility], [facility], [address] [place], [place] Boo Helms M.D., Ph.D., Director of Laboratories , CLIA [id number] Ordering Provider: THOMAS BLACK Report Released Date/Time: October 23, 2024 02:50 PM Reporting Lab: [facility] [address] [facility] [address] Performing Lab[facility] [address] [facility] [address] [facility] CYSTATIN C EGFR PANELS ([facility] ) CYSTATIN C [MASS/VOLUM E] IN SERUM OR PLASMA 1.10 mg/L 0.57 - 1.80 11/03 Specimen Type: PLASMA Comment: Choice of which of the reported eGFR values to use depends on the clinical situation. For example, for patients with severe muscle wasting or reduced muscle mass, eGFR calculated using the 2012 cystatin equation may be preferred. Ordering Provider: THOMAS BLACK Report Released Date/Time: October 23, 2024 02:53 PM Reporting Lab: [facility] [address] [address] Performing Lab: [address] [address] [facility] CYSTATIN C EGFR PANELS ([facility] ) CKD-EPI CYSTATIN C (2011) 72.8 60 11/03 Specimen Type: PLASMA Comment: Choice of which of the reported eGFR values to use depends on the clinical situation. For example, for patients with severe muscle wasting or reduced muscle mass, eGFR calculated using the 2012 cystatin equation may be preferred. Ordering Provider: THOMAS BLACK Report Released Date/Time: October 23, 2024 02:53 PM Reporting Lab: [facility] [address] [address] Performing Lab: [address] [address] [facility] CYSTATIN C EGFR PANELS ([facility] ) CKD-EPI CREAT-CYSC (2020) 91.1 60 11/03 Specimen Type: PLASMA Comment: Choice of which of the reported eGFR values to use depends on the clinical situation. For example, for patients with severe muscle wasting or reduced muscle mass, eGFR calculated using the 2011 cystatin equation may be preferred. Ordering Provider: THOMAS BLACK Report Released Date/Time: October 23, 2024 02:53 PM Reporting Lab: [facility] [address] [address] Performing Lab: [facility] [address] [place] [phone] [facility] CYSTATIN C EGFR PANELS ([facility]-PB-[facility] ) CREATININE [MASS/VOLUM E] IN SERUM OR PLASMA 0.73 mg/dL 0.7 - 1.3 11/03 Specimen Type: PLASMA Comment: Choice of which of the reported eGFR values to use depends on the clinical situation. For example, for patients with severe muscle wasting or reduced muscle mass, eGFR calculated using the 2011 cystatin equation may be preferred. Ordering Provider: THOMAS BLACK Report Released Date/Time: October 23, 2024 02:53 PM Reporting Lab: [facility] [address] [address] Performing Lab: [address] [address] [facility] HGA1C HEMOGLOBIN A1C/HEMOGLO BIN.TOTAL IN BLOOD 11.3 4.0 - 6.0 11/03 H Specimen Type: BLOOD No comment entered. Ordering Provider: THOMAS BLACK Report Released Date/Time: October 23, 2024 02:50 PM Reporting Lab: [place] [facility] [address] [place] [facility] [address] Performing Lab: [place] [facility] [address] [facility] [address] [place] [facility] CHOLESTERO L PANEL (PB) CHOLESTEROL [MASS/VOLUM E] IN SERUM OR PLASMA 185 mg/dL 0 - 200 11/03 Specimen Type: PLASMA Comment: LDL calculation invalid when Triglyceride exceeds 250 mg/dl Ordering Provider: THOMAS BLACK Report Released Date/Time: October 23, 2024 02:50 PM Reporting Lab: [place] [facility] [address] [place] [address] Performing Lab: [place] [facility] [address] [place] [address] [place] [facility] CHOLESTERO L PANEL (PB) TRIGLYCERID E [MASS/VOLUM E] IN SERUM OR PLASMA 293 mg/dL 0 - 150 11/03 H Specimen Type: PLASMA Comment: LDL calculation invalid when Triglyceride exceeds 250 mg/dl Ordering Provider: THOMAS BLACK Report Released Date/Time: October 23, 2024 02:50 PM Reporting Lab: [place] [facility] [address] [place] [address] Performing Lab: [place] [facility] [address] [place] [address] [place] [facility] CHOLESTERO L PANEL (PB) CHOLESTEROL IN LDL [MASS/VOLUM E] IN SERUM OR PLASMA BY CALCULATION commen tmg/dL 11/03 Specimen Type: PLASMA Comment: LDL calculation invalid when Triglyceride exceeds 250 mg/dl Ordering Provider: THOMAS BLACK Report Released Date/Time: October 23, 2024 02:50 PM Reporting Lab: [place] [facility] [address] [place] [address] Performing Lab: [place] [facility] [address] [place] [address] [place] [facility] CHOLESTERO L PANEL (PB) CHOLESTEROL IN HDL [MASS/VOLUM E] IN SERUM OR PLASMA 42.0 mg/dL 40 11/03 H Specimen Type: PLASMA Comment: LDL calculation invalid when Triglyceride exceeds 250 mg/dl Ordering Provider: THOMAS BLACK Report Released Date/Time: October 23, 2024 02:50 PM Reporting Lab: [place] [facility] [address] [place] [address] Performing Lab: [place] [facility] [address] [place] [address] [place] [facility] CHOLESTERO L PANEL (PB) CHOLESTEROL IN HDL/CHOLEST TING.TOTAL [MASS RATIO] IN SERUM OR PLASMA 22.7 25 11/03 Specimen Type: PLASMA Comment: LDL calculation invalid when Triglyceride exceeds 250 mg/dl Ordering Provider: THOMAS BLACK Report Released Date/Time: October 23, 2024 02:50 PM Reporting Lab: [place] [facility] [address] [place] [address] Performing Lab: [place] [facility] [address] [place] [address] [place] [facility] CHOLESTERO L PANEL (PB) CHOLESTEROL IN LDL [MASS/VOLUM E] IN SERUM OR PLASMA BY DIRECT ASSAY 119.9 mg/dL 0 - 99.9 11/03 H Specimen Type: PLASMA Comment: LDL calculation invalid when Triglyceride exceeds 250 mg/dl Ordering Provider: THOMAS BLACK Report Released Date/Time: October 23, 2024 02:50 PM Reporting Lab: [place] [facility] [address] [place] [address] Performing Lab: [place] [facility] [address] [place] [address] [place] [facility] MAGNESIUM MAGNESIUM [MASS/VOLUM E] IN SERUM OR PLASMA 1.69 mg/dL 1.6 - 2.6 11/03 Specimen Type: PLASMA Comment: LDL calculation invalid when Triglyceride exceeds 250 mg/dl Ordering Provider: THOMAS BLACK Report Released Date/Time: October 23, 2024 02:50 PM Reporting Lab: [place] [facility] [address] [place] [address] Performing Lab: [place] [facility] [address] [place] [address] [place] [facility] COMPREHENS NIEVES METABOLIC PANEL CREATININE [MASS/VOLUM E] IN SERUM OR PLASMA 0.75 mg/dL 0.7 - 1.3 11/03 Specimen Type: PLASMA Comment: LDL calculation invalid when Triglyceride exceeds 250 mg/dl Ordering Provider: THOMAS BLACK Report Released Date/Time: October 23, 2024 02:50 PM Reporting Lab: [place] [facility] [address] [place] [address] Performing Lab: [place] [facility] [address] [place] [address] [place] [facility] COMPREHENS NIEVES METABOLIC PANEL UREA NITROGEN [MASS/VOLUM E] IN SERUM OR PLASMA 11 mg/dL 9 - 25 11/03 Specimen Type: PLASMA Comment: LDL calculation invalid when Triglyceride exceeds 250 mg/dl Ordering Provider: THOMAS BLACK Report Released Date/Time: October 23, 2024 02:50 PM Reporting Lab: [place] [facility] [address] [place] [address] Performing Lab: [place] [facility] [address] [place] [address] [place] [facility] COMPREHENS NIEVES METABOLIC PANEL GLUCOSE [MASS/VOLUM E] IN SERUM OR PLASMA 296 mg/dL 72 - 99 11/03 H Specimen Type: PLASMA Comment: LDL calculation invalid when Triglyceride exceeds 250 mg/dl Ordering Provider: THOMAS BLACK Report Released Date/Time: October 23, 2024 02:50 PM Reporting Lab: [place] [facility] [address] [place] [address] Performing Lab: [place] [facility] [address] [place] [address] [place] [facility] COMPREHENS NIEVES METABOLIC PANEL SODIUM [MOLES/VOLU ME] IN SERUM OR PLASMA 139 meq/L 136 - 145 11/03 Specimen Type: PLASMA Comment: LDL calculation invalid when Triglyceride exceeds 250 mg/dl Ordering Provider: THOMAS BLACK Report Released Date/Time: October 23, 2024 02:50 PM Reporting Lab: [place] [facility] [address] [place] [address] Performing Lab: [place] [facility] [address] [place] [address] [place] [facility] COMPREHENS NIEVES METABOLIC PANEL POTASSIUM [MOLES/VOLU ME] IN SERUM OR PLASMA 3.7 meq/L 3.5 - 5 11/03 Specimen Type: PLASMA Comment: LDL calculation invalid when Triglyceride exceeds 250 mg/dl Ordering Provider: THOMAS BLACK Report Released Date/Time: October 23, 2024 02:50 PM Reporting Lab: [place] [facility] [address] [place] [address] Performing Lab: [place] [facility] [address] [place] [address] [place] [facility] COMPREHENS NIEVES METABOLIC PANEL CHLORIDE [MOLES/VOLU ME] IN SERUM OR PLASMA 103 meq/L 98 - 107 11/03 Specimen Type: PLASMA Comment: LDL calculation invalid when Triglyceride exceeds 250 mg/dl Ordering Provider: THOMAS BLACK Report Released Date/Time: October 23, 2024 02:50 PM Reporting Lab: [place] [facility] [address] [place] [address] Performing Lab: [place] [facility] [address] [place] [address] [place] [facility] COMPREHENS NIEVES METABOLIC PANEL CARBON DIOXIDE, TOTAL [MOLES/VOLU ME] IN SERUM OR PLASMA 24 meq/L 22 - 31 11/03 Specimen Type: PLASMA Comment: LDL calculation invalid when Triglyceride exceeds 250 mg/dl Ordering Provider: THOMAS BLACK Report Released Date/Time: October 23, 2024 02:50 PM Reporting Lab: [place] [facility] [address] [place] [address] Performing Lab: [place] [facility] [address] [place] [address] [place] [facility] COMPREHENS NIEVES METABOLIC PANEL CALCIUM [MASS/VOLUM E] IN SERUM OR PLASMA 9.1 mg/dL 8.4 - 10.4 11/03 Specimen Type: PLASMA Comment: LDL calculation invalid when Triglyceride exceeds 250 mg/dl Ordering Provider: THOMAS BLACK Report Released Date/Time: October 23, 2024 02:50 PM Reporting Lab: [place] [facility] [address] [place] [address] Performing Lab: [place] [facility] [address] [place] [address] [place] [facility] COMPREHENS NIEVES METABOLIC PANEL PROTEIN [MASS/VOLUM E] IN SERUM OR PLASMA 7.1 g/dL 6 - 8.6 11/03 Specimen Type: PLASMA Comment: LDL calculation invalid when Triglyceride exceeds 250 mg/dl Ordering Provider: THOMAS BLACK Report Released Date/Time: October 23, 2024 02:50 PM Reporting Lab: [place] [facility] [address] [place] [address] Performing Lab: [place] [facility] [address] [place] [address] [place] [facility] COMPREHENS NIEVES METABOLIC PANEL ALBUMIN [MASS/VOLUM E] IN SERUM OR PLASMA 4.2 g/dL 3.4 - 5 11/03 Specimen Type: PLASMA Comment: LDL calculation invalid when Triglyceride exceeds 250 mg/dl Ordering Provider: THOMAS BLACK Report Released Date/Time: October 23, 2024 02:50 PM Reporting Lab: [place] [facility] [address] [place] [address] Performing Lab: [place] [facility] [address] [place] [address] [place] [facility] COMPREHENS NIEVES METABOLIC PANEL BILIRUBIN.T OTAL [MASS/VOLUM E] IN SERUM OR PLASMA 0.6 mg/dL 0.2 - 1.2 11/03 Specimen Type: PLASMA Comment: LDL calculation invalid when Triglyceride exceeds 250 mg/dl Ordering Provider: THOMAS BLACK Report Released Date/Time: October 23, 2024 02:50 PM Reporting Lab: [place] [facility] [address] [place] [address] Performing Lab: [place] [facility] [address] [place] [address] [place] [facility] COMPREHENS NIEVES METABOLIC PANEL ALKALINE PHOSPHATASE [ENZYMATIC ACTIVITY/VO LUME] IN SERUM OR PLASMA 100 U/L 40 - 150 11/03 Specimen Type: PLASMA Comment: LDL calculation invalid when Triglyceride exceeds 250 mg/dl Ordering Provider: THOMAS BLACK Report Released Date/Time: October 23, 2024 02:50 PM Reporting Lab: [place] [facility] [address] [place] [address] Performing Lab: [place] [facility] [address] [place] [address] [place] [facility] COMPREHENS NIEVES METABOLIC PANEL ASPARTATE AMINOTRANSF ERASE [ENZYMATIC ACTIVITY/VO LUME] IN SERUM OR PLASMA 30 U/L 5 - 34 11/03 Specimen Type: PLASMA Comment: LDL calculation invalid when Triglyceride exceeds 250 mg/dl Ordering Provider: THOMAS BLACK Report Released Date/Time: October 23, 2024 02:50 PM Reporting Lab: [place] [facility] [address] [place] [address] Performing Lab: [place] [facility] [address] [place] [address] [place] [facility] COMPREHENS NIEVES METABOLIC PANEL ALANINE AMINOTRANSF ERASE [ENZYMATIC ACTIVITY/VO LUME] IN SERUM OR PLASMA 41 U/L 8 - 40 11/03 H Specimen Type: PLASMA Comment: LDL calculation invalid when Triglyceride exceeds 250 mg/dl Ordering Provider: THOMAS BLACK Report Released Date/Time: October 23, 2024 02:50 PM Reporting Lab: [place] [facility] [address] [place] [address] Performing Lab: [place] [facility] [address] [place] [address] [place] [facility] COMPREHENS NIEVES METABOLIC PANEL GLOMERULAR FILTRATION RATE/1.73 SQ M.PREDICTED [VOLUME RATE/AREA] IN SERUM, PLASMA OR BLOOD BY CREATININE- BASED FORMULA (CKD-EPI 2020) 113 11/03 Specimen Type: PLASMA Comment: LDL calculation invalid when Triglyceride exceeds 250 mg/dl Ordering Provider: THOMAS BLACK Report Released Date/Time: October 23, 2024 02:50 PM Reporting Lab: [place] [facility] [address] [place] [address] Performing Lab: [place] [facility] [address] [place] [address] [place] [facility] VITAMIN D, 25-HYDROXY 25-HYDROXYV ITAMIN D3 [MASS/VOLUM E] IN SERUM OR PLASMA 24.4 ng/mL 30 - 96 11/03 L Specimen Type: SERUM No comment entered. Ordering Provider: THOMAS BLACK Report Released Date/Time: October 23, 2024 02:50 PM Reporting Lab: [place] [facility] [address] [place] [address] Performing Lab: [place] [facility] [address] [place] [address] [place] [facility] TSH (MA-PB) THYROTROPIN [UNITS/VOLU ME] IN SERUM OR PLASMA 1.015 u[IU]/ mL 0.47 - 5 11/03 Specimen Type: SERUM No comment entered. Ordering Provider: THOMAS BLACK Report Released Date/Time: October 23, 2024 02:50 PM Reporting Lab: [place] [facility] [address] [place] [address] Performing Lab: [place] [facility] [address] [place] [address] [place] [facility] URINE ALBUMIN PROFILE-ih (PB) ALBUMIN [MASS/VOLUM E] IN URINE 62.05 mg/L 11/03 Specimen Type: URINE No comment entered. Ordering Provider: THOMAS BLACK Report Released Date/Time: October 23, 2024 02:50 PM Reporting Lab: [place] [facility] [address] [place] [address] Performing Lab: [place] [facility] [address] [place] [address] [place] [facility] URINE ALBUMIN PROFILE-ih (PB) ALBUMIN/CRE ATININE [MASS RATIO] IN URINE 46.31 mg/g 0 - 30 11/03 H Specimen Type: URINE No comment entered. Ordering Provider: THOMAS BLACK Report Released Date/Time: October 23, 2024 02:50 PM Reporting Lab: [place] [facility] [address] [place] [address] Performing Lab: [place] [facility] [address] [place] [address] [place] [facility] URINE ALBUMIN PROFILE-ih (PB) CREATININE [MASS/VOLUM E] IN URINE 133.99 mg/dL 11/03 Specimen Type: URINE No comment entered. Ordering Provider: THOMAS BLACK Report Released Date/Time: October 23, 2024 02:50 PM Reporting Lab: [place] [facility] [address] [place] [address] Performing Lab: [place] [facility] [address] [place] [address] [place] [facility] DIGOXIN DIGOXIN [MASS/VOLUM E] IN SERUM OR PLASMA <0.19n g/mL 0.8 - 2 11/03 L Specimen Type: PLASMA Comment: LDL calculation invalid when Triglyceride exceeds 250 mg/dl Ordering Provider: THOMAS BALCK Report Released Date/Time: October 23, 2024 02:50 PM Reporting Lab: [place] [facility] [address] [place] [address] Performing Lab: [place] [facility] [address] [place] [address] [place] [facility] Vital Signs Combined list of inpatient and outpatient Vital Signs from Department of Defense and Veterans Affairs, ranging from 12 months to all on record, depending upon the facility. Vital Sign Value Date Comments Source SYSTOLIC BLOOD PRESSURE 128 11/20/2024 08:40:35 [facility] DIASTOLIC BLOOD PRESSURE 89 11/20/2024 08:40:35 [facility] PULSE OXIMETRY 97 % 11/20/2024 08:40:35 [facility] WEIGHT 393.5 11/20/2024 08:40:35 [facility] BMI 57 kg/m2 11/20/2024 08:40:35 [place] [facility] PAIN 5 11/20/2024 08:40:35 [facility] TEMPERATURE 98.4 11/20/2024 08:40:35 [facility] PULSE 82 11/20/2024 08:40:35 [facility] RESPIRATION 20 11/20/2024 08:40:35 [facility] SYSTOLIC BLOOD PRESSURE 105 11/17/2024 09:54:00 [facility] DIASTOLIC BLOOD PRESSURE 71 11/17/2024 09:54:00 [facility] TEMPERATURE 97.9 11/17/2024 09:54:00 [place] [facility] PULSE 112 11/17/2024 09:54:00 [place] [facility] SYSTOLIC BLOOD PRESSURE 128 08/26/2024 15:24:00 [facility] DIASTOLIC BLOOD PRESSURE 78 08/26/2024 15:24:00 [facility] TEMPERATURE 98 08/26/2024 15:24:00 [place] [facility] PULSE 68 08/26/2024 15:24:00 [facility] SYSTOLIC BLOOD PRESSURE 134 08/19/2024 10:26:36 [facility] DIASTOLIC BLOOD PRESSURE 100 08/19/2024 10:26:36 [facility] PULSE OXIMETRY 96 08/19/2024 10:26:36 [facility] [place] [facility] WEIGHT 392.2 08/19/2024 10:26:36 [facility] BMI 56 kg/m2 08/19/2024 10:26:36 [place] [facility] PAIN 4 08/19/2024 10:26:36 [place] [facility] TEMPERATURE 97.8 08/19/2024 10:26:36 [place] [facility] PULSE 84 08/19/2024 10:26:36 [place] [facility] RESPIRATION 22 08/19/2024 10:26:36 [place] [facility] SYSTOLIC BLOOD PRESSURE 108 05/05/2024 14:30:00 [place] [facility] DIASTOLIC BLOOD PRESSURE 78 05/05/2024 14:30:00 [place] [facility] TEMPERATURE 98.1 05/05/2024 14:30:00 [place] [facility] PULSE 52 05/05/2024 14:30:00 [place] [facility] Encounters Combined list of: 1) Encounters from Department of Veterans Affairs facilities going backup to the last 18 months, not all VA inpatient encounters are included; 2) Encounters from the Department of Defense facilities going backup to 280 months. Location Location Details Encounter Type Encounter Number Reason For Visit Attending Provider ADM Date DC Date Status Disposition Source [facility] Outpatient Encounter [id number] 06/19 [facility] Outpatient Encounter [id number] DAREK NAVARRO L 06/24 [facility] N [facility] Outpatient Encounter [id number] 06/26 [facility] OFFICE O/P EST SF 10 MIN [id number] Diagnos is: ICD-10- CM F31.9 Bipolar disorde r, unspeci fied SCHAOMAR Richardson R 06/27 [facility] PSYTX W PT 60 MINUTES [id number] Diagnos is: ICD-10- CM F33.1 Major depress nieves disorde r, recurre nt, moderat e MARCELO,CHR ISSOM J 07/01 [facility] Outpatient Encounter [id number] 07/02 [facility] Outpatient Encounter [id number] 07/02 [facility] Outpatient Encounter [id number] 07/03 [facility] Outpatient Encounter [id number] 07/03 [facility] OFF/OP EST MAY X REQ PHY/QHP [id number] Diagnos is: ICD-10- CM M25.529 Pain in unspeci fied elbow CUSTRED,TO RRI J 07/08 [facility] OFF/OP EST MAY X REQ PHY/QHP [id number] Diagnos is: ICD-10- CM M79.641 Pain in right hand Ashish COATES 07/08 [facility] OFFICE O/P EST MOD 30 MIN [id number] Diagnos is: ICD-10- CM S66.510 A Strain intrns musc/fa sc/tend r idx fngr at wrs/hnd lv, init BILL MAGAÑAMaggi STEL G 07/08 [facility] Outpatient Encounter [id number] CASEYROSSANA RIL L 07/[address] [facility] Outpatient Encounter [id number] 07/[address] [facility] Outpatient Encounter [id number] 07/17 [facility] Outpatient Encounter [id number] 07/26 [facility] PSYTX W PT 60 MINUTES [id number] Diagnos is: ICD-10- CM F33.1 Major depress nieves disorde r, recurre nt, moderat e MARCELO,CHR ISSOM J 07/31 [facility] Outpatient Encounter [id number] 08/01 [facility] Outpatient Encounter [id number] Diagnos is: ICD-10- CM E11.65 Type 2 diabete s mellitu s with hypergl ycemia Ashish VALVERDE TAYLOR W 08/07 [facility] Outpatient Encounter [id number] 08/14 [facility] Outpatient Encounter [id number] 08/18 [facility] Outpatient Encounter [id number] 08/20 [facility] Outpatient Encounter [id number] 08/25 [facility] Outpatient Encounter [id number] 08/27 [facility] Outpatient Encounter [id number] Diagnos is: ICD-10- CM E11.65 Type 2 diabete s mellitu s with hypergl ycemia Ashish VALVERDE W 08/29 [facility] [place] [facility] QNHP OL DIG ASSMT&MGMT 11-20 [id number] Diagnos is: ICD-10- CM E11.65 Type 2 diabete s mellitu s with hypergl ycemia CEZARZULY YE R 08/29 [place] [facility] Outpatient Encounter [id number] 09/02 [facility] OFF/OP EST MAY X REQ PHY/QHP [id number] Diagnos is: ICD-10- CM M25.552 Pain in left hip Ashish COATES 09/03 [facility] OFFICE O/P EST LOW 20 MIN [id number] Diagnos is: ICD-10- CM S76.012 A Strain of muscle, fascia and tendon of left hip, init encntr TRENT MAGAÑA 09/03 [facility] Outpatient Encounter [id number] HILARY DELGADO 09/09 [facility] Outpatient Encounter [id number] Diagnos is: ICD-10- CM E11.65 Type 2 diabete s mellitu s with hypergl ycemia Ashish VALVERDE W 09/09 [facility] QNHP OL DIG ASSMT&MGMT 5-10 [id number] Diagnos is: ICD-10- CM E11.65 Type 2 diabete s mellitu s with hypergl ycemia SHIREEN SIN V 09/10 [facility] OFFICE O/P EST LOW 20 MIN [id number] Diagnos is: ICD-10- CM F31.9 Bipolar disorde r, unspeci OMAR Magallanes R 09/10 [facility] Outpatient Encounter [id number] 09/19 [facility] OFFICE O/P EST LOW 20 MIN [id number] Diagnos is: ICD-10- CM K21.9 Gastro- esophag eal reflux disease without esophag itTHOMAS Redman 09/19 [facility] Outpatient Encounter [id number] 09/22 [facility] Outpatient Encounter [id number] 09/24 [facility] Outpatient Encounter [id number] 09/24 [facility] Outpatient Encounter [id number] Diagnos is: ICD-10- CM E11.65 Type 2 diabete s mellitu s with hypergl ycemia Ashish VALVERDE W 09/24 [facility] Outpatient Encounter [id number] 09/25 [facility] PSYTX W PT 60 MINUTES [id number] Diagnos is: ICD-10- CM F33.1 Major depress nieves disorde r, recurre nt, moderat e SHAWN WRAY P 09/25 [facility] Outpatient Encounter [id number] 09/29 [facility] Outpatient Encounter [id number] 09/29 [facility] Outpatient Encounter 80109-6.65 [id number] 09/30 [facility] Outpatient Encounter 90653-3.65 [id number] 9 10/01 [facility] Outpatient Encounter 76364-6.65 [id number] 8 10/02 [facility] Outpatient Encounter 51591-8.65 [id number] 8 10/08 [facility] Outpatient Encounter 83279-8.65 [id number] 5 10/08 [facility] Outpatient Encounter 61783-1.65 [id number] 5 10/08 [facility] Outpatient Encounter 90957-5.65 [id number] 2 10/13 [facility] OFFICE O/P EST HI 40 MIN 09755-9.65 [id number] 147 Diagnos is: ICD-10- CM F33.1 Major depress nieves distalya r, recurre nt, moderat e THOMAS BLACK 10/24 [facility] Outpatient Encounter [id number] [id number] 1 10/24 [facility] Outpatient Encounter 05421-1.65 [id number] 1 10/29 [facility] MTMS BY PHARM ADDL 15 MIN 94226-5.65 [id number] Diagnos is: ICD-10- CM E11.65 Type 2 diabete s mellitu s with hypergl ycemia Ashish VALVERDE W 10/31 [facility] Outpatient Encounter [id number] [id number] 601 11/06 [facility] Outpatient Encounter 52122-9.65 [id number] 11/13 [facility] OFFICE O/P EST MOD 30 MIN 72009-7.65 [id number] 675 Diagnos is: ICD-10- CM F50.81 Binge eating calos r THOMAS BLACK 11/13 [facility] HC PRO PHONE CALL 5-10 MIN 88561-4.65 [id number] Diagnos is: ICD-10- CM 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 Outpatient Encounter 32647-6.65 [id number] 12/30 [facility] PSYTX W PT 60 MINUTES 46209-9.65 [id number] 966 Diagnos is: ICD-10- CM F33.1 Major depress nieves disorde r, recurre nt, SHAWN Bui P 12/31 [facility] Outpatient Encounter 57712-4.65 [id number] 01/12 [facility] Outpatient Encounter 08468-9.65 [id number] HUMZA CUNNINGHAM J 01/12 [facility] MTMS BY PHARM ADDL 15 MIN 91901-9.65 [id number] Diagnos is: ICD-10- CM E11.65 Type 2 diabete s mellitu s with hypergl ycemia Ashish VALVERDE W 01/16 [facility] Outpatient Encounter [id number] [id number] 01/19 [facility] FEE 16687-1.65 [id number] Diagnos is: ICD-10- CM Z02.89 Encount er for other adminis trative examina tions TAZ DINH 01/22 [facility] Outpatient Encounter 34481-0.65 [id number] 669 Diagnos is: ICD-10- CM Z02.89 Encount er for other adminis trative examina tions TAZ DINH 01/22 [facility] [place] [facility] Outpatient Encounter 86012-4.65 [id number] 509 Diagnos is: ICD-10- CM Z02.89 Encount er for other adminis trative examina tions NOLBERTOAYAN VALENTIN 02/05 [facility] Outpatient Encounter 57867-5.65 [id number] 02/07 [facility] Outpatient Encounter 65513-7.65 [id number] ROSSANA PEÑA RIL L 02/09 [facility] Outpatient Encounter 43949-2.65 [id number] 9 CASEY,AP RIL L 02/13 [facility] Outpatient Encounter 26797-3.65 [id number] 1 02/18 [facility] OFF/OP EST OCTOBER X REQ PHY/QHP 83162-7.65 [id number] Diagnos is: ICD-10- CM H60.501 Unspeci fied acute noninfe ctive otitis externa , right ear LINDEN HOPKINS R 02/23 [facility] PSYTX W PT 60 MINUTES 23730-2.65 [id number] 180 Diagnos is: ICD-10- CM F33.1 Major depress nieves disorde r, recurre nt, moderat e WRAY,SHAWN TRIPP P 03/09 [facility] Outpatient Encounter 27649-5.65 [id number] 03/10 [facility] Outpatient Encounter 68895-0.65 [id number] 03/11 [facility] Outpatient Encounter 90996-5.65 [id number] ROSSANA PEÑA L 03/17 [facility] [place] [facility] PSYTX W PT 30 MINUTES 04248-3.65 [id number] 215 Diagnos is: ICD-10- CM F10.20 Alcohol depende nce, uncompl icated MARLA TERRELL D 03/17 [place] [facility] OFF/OP EST OCTOBER X REQ PHY/QHP 79075-6.65 [id number] 829 Diagnos is: ICD-10- CM M25.562 Pain in left knee GUTIÉRREZ,CAMPBELL NESSA D 03/17 [facility] Outpatient Encounter 88500-9.65 [id number] HILARY DELGADO M 03/20 [facility] [place] [facility] PT EDUCATION NOC GROUP 25930-4.65 [id number] Diagnos is: ICD-10- CM F10.11 Alcohol abuse, in remissi on Lori ZARATE T 03/23 [place] [facility] [place] [facility] Outpatient Encounter 42862-5.65 [id number] MAKI RAI P 03/23 [place] [facility] [place] [facility] GROUP PSYCHOTHER APY 40487-5 [id number] Diagnos is: ICD-10- CM F10.94 Alcohol use, unspeci fied with alcohol -induce d mood disorde r MAKI RAI P 03/23 [place] [facility] [place] [facility] Outpatient Encounter [id number] MAKI RAI P 03/23 [place] [facility] OFFICE O/P EST LOW 20 MIN [id number]. [id number] Diagnos is: ICD-10- CM F31.9 Bipolar disorde r, unspeci fied OMAR BLEVINS 03/23 [facility] [place] [facility] PSYCHOTHER APY 70447-8 [id number] 703 Diagnos is: ICD-10- CM F10.11 Alcohol abuse, in remissi on Lori ZARATE T 03/24 [place] [facility] [place] [facility] GROUP PSYCHOTHER APY 53357-4 [id number] 485 Diagnos is: ICD-10- CM F10.94 Alcohol use, unspeci fied with alcohol -induce d mood disorde r Lori ZARATE T 03/25 [place] [facility] [place] [facility] SELF-HELP/ PEER SVC PER 15MIN 14559-6.70 [id number] 724 Diagnos is: ICD-10- CM F10.94 Alcohol use, unspeci fied with alcohol -induce d mood disorde r Herbie DILLARD ODD A 03/26 [place] [facility] [place] [facility] GROUP PSYCHOTHER APY 66686-2 [id number] 667 Diagnos is: ICD-10- CM F10.94 Alcohol use, unspeci fied with alcohol -induce d mood disorde r MARLA TERRELL 03/26 [place] [facility] [place] [facility] GROUP PSYCHOTHER APY 19070-4 [id number] 537 Diagnos is: ICD-10- CM F10.94 Alcohol use, unspeci fied with alcohol -induce d mood disorde r Lori ZARATE T 03/27 [place] [facility] [place] [facility] Outpatient Encounter 51198-9.65 [id number] 03/30 [place] [facility] Outpatient Encounter 82888-7. [id number] 03/30 [facility] Outpatient Encounter 90496-3 [id number] 03/31 [facility] En[facility] 20653-5 [id number] 03/31 [place] [facility] Outpatient Encounter 38904-4. [id number] 03/31 [facility] [place] [facility] GROUP PSYCHOTHER APY 82127-8 [id number] Diagnos is: ICD-10- CM F10.94 Alcohol use, unspeci fied with alcohol -induce d mood disorde r DURGA ARREGUIN 03/31 [place] [facility] Outpatient Encounter [id number] [id number] 5 03/31 [facility] Outpatient Encounter [id number] [id number] 2 04/01 [facility] [place] [facility] SELF-HELP/ PEER SVC PER 15MIN 31825-9.65 [id number] 307 Diagnos is: ICD-10- CM F10.94 Alcohol use, unspeci fied with alcohol -induce d mood disorde Herbie Mcnulty ODD A 04/02 [place] [facility] [place] [facility] Outpatient Encounter 14902-4.65 [id number] MARLA TERRELL 04/02 [place] [facility] Outpatient Encounter 06742-0.65 [id number] 3 04/03 [facility] Outpatient Encounter 75983-9.65 [id number] 3 ROSSANA PEÑA 04/06 [facility] [place] [facility] Outpatient Encounter 04147-9.65 [id number] 04/06 [place] [facility] [place] [facility] Outpatient Encounter 37269-1.65 [id number] 04/06 [place] [facility] [place] [facility] PSYCHOTHER APY [id number] [id number] 911 Diagnos is: ICD-10- CM F10.94 Alcohol use, unspeci fied with alcohol -induce d mood disorde MARLA Sanchez 04/07 [place] [facility] [place] [facility] PSYTX W PT 30 MINUTES 57455-4.65 [id number] 125 Diagnos is: ICD-10- CM F10.94 Alcohol use, unspeci fied with alcohol -induce d mood disordMARLA Farias 04/10 [place] [facility] [place] [facility] Outpatient Encounter 71495-7.65 [id number] 04/17 [place] [facility] Outpatient Encounter 26990-7.65 [id number] 04/21 [facility] [place] [facility] Outpatient Encounter 65508-4.65 [id number] 600 04/22 [place] [facility] Outpatient Encounter 78752-1.65 [id number] 04/22 [facility] Outpatient Encounter 68298-9.65 [id number] 04/24 [facility] Outpatient Encounter 68302-8.65 [id number] 05/04 [facility] PSYTX W PT 60 MINUTES 11966-2.65 [id number] Diagnos is: ICD-10- CM F33.1 Major depress nieves disorde r, recurre nt, SHAWN Bui P 05/05 [facility] OFF/OP EST OCTOBER X REQ PHY/QHP 37040-4.65 [id number] 117 Diagnos is: ICD-10- CM M25.562 Pain in left knee CUSTRED,TO RRI J 05/05 [facility] Outpatient Encounter [id number] [id number] 05/07 [facility] MTMS BY PHARM ADDL 15 MIN [id number] [id number] Diagnos is: ICD-10- CM E11.65 Type 2 diabete s mellitu s with hypergl ycemia Ashish VALVERDE W 05/12 [facility] [place] [facility] QNHP OL DIG ASSMT&MGMT 5-10 03041-1.65 [id number] 037 Diagnos is: ICD-10- CM E11.65 Type 2 diabete s mellitu s with hypergl ycemia JANUARY,SHIREEN V 05/13 [facility] Outpatient Encounter 92384-3.65 [id number] 05/13 [facility] Outpatient Encounter 70011-2.65 [id number] 05/18 [facility]counter 07575-5.65 [id number] JOANN REA 05/22 [facility] MTMS BY PHARM ADDL 15 MIN [id number] [id number] Diagnos is: ICD-10- CM E11.65 Type 2 diabete s mellitu s with hypergl ycemia ABRAM,J TAYLOR W 05/28 [facility] [place] [facility] Outpatient Encounter 45818-6.65 [id number] 547 DIVMANDOEDIZAID 06/05 [place] [facility] MTMS BY PHARM ADDL 15 MIN 25033-4.65 [id number] Diagnos is: ICD-10- CM E11.65 Type 2 diabete s mellitu s with hypergl ycemia ABRAM,J TAYLOR W 06/23 [facility] OFFICE O/P EST LOW 20 MIN 38483-1.65 [id number] 419 Diagnos is: ICD-10- CM F31.76 Bipolar disorde r, in full remis, most recent episode depress OMAR BLEVINS 06[facility] [place] [facility] Outpatient Encounter 71826-1.65 [id number] 06/25 [place] [facility] Outpatient Encounter 44861-1.65 [id number] 06/25 [facility] Outpatient Encounter 73783-9.65 [id number] 06/30 [facility] MTMS BY PHARM ADDL 15 MIN 10977-6.65 [id number] 158 Diagnos is: ICD-10- CM E11.65 Type 2 diabete s mellitu s with hypergl ycemia Ashish VALVERDE TAYLOR W 06/30 [facility] PSYTX W PT 60 MINUTES 30794-6.65 [id number] 518 Diagnos is: ICD-10- CM F33.1 Major depress nieves disorde r, recurre nt, SHAWN Bui P 06/30 [facility] Outpatient Encounter 29206-7.65 [id number] 06/30 [facility] Outpatient Encounter 64868-7.65 [id number] 07/01 [facility] Outpatient Encounter 91877-2.65 [id number] 07/09 [facility] Outpatient Encounter 37046-3.65 [id number] 07/14 [facility] Outpatient Encounter 16727-5.65 [id number] 07/16 [facility] PSYTX W PT 60 MINUTES 86738-3.65 [id number] 532 Diagnos is: ICD-10- CM F33.1 Major depress nieves disorde r, recurre nt, SHAWN Bui P 07/28 [facility] Outpatient Encounter 40739-2.65 [id number] 5 CUSTRED,TO RRI J 08/05 [facility] Encounter 54487-1.65 [id number] 08/06 [facility] PSYTX W PT 60 MINUTES 65447-6.65 [id number] Diagnos is: ICD-10- CM F33.1 Major depress nieves disorde r, recurre nt, SHAWN Bui P 08/17 [facility] FEE 88033-8.65 [id number] 435 Diagnos is: ICD-10- CM M54.2 Cervica xuan DOCKERYTHOMAS HENRY R 08/19 [facility] SYNCH AUDIO-VIDE O EST LOW 20 61588-9.65 [id number] 285 Diagnos is: ICD-10- CM M54.2 Cervica xuan DOCKERYCARLTHOMAS R 08/19 [facility] Outpatient Encounter 96252-7.65 [id number] 08/24 [facility] OFF/OP EST MAY X REQ PHY/QHP 59694-5.65 [id number] 580 Diagnos is: ICD-10- CM R21 Rash and other nonspec ific skin eruptio n CUSTRED,TO RRI J 08/26 [facility] Outpatient Encounter 32104-9.65 [id number] 4 09/01 [facility] Outpatient Encounter 25762-6.65 [id number] 7 09/02 [facility] Outpatient Encounter 84953-2.65 [id number] 5 09/06 [facility] Outpatient Encounter 58508-7.65 [id number] 3 ROSSANA PEÑA 09/07 [facility] Outpatient Encounter 35308-9.65 [id number] 6 09/10 [facility] Outpatient Encounter 25170-7.65 [id number] 9 09/16 [facility] Outpatient Encounter 11270-6.65 [id number] HILARY DELGADO M 09/17 [facility] Outpatient Encounter 55093-1.65 [id number] 09/18 [facility] Outpatient Encounter 83949-0.65 [id number] 09/18 [facility] Outpatient Encounter 37781-7.65 [id number] 09/21 [facility] OFFICE O/P NEW LOW 30 MIN 03896-9.65 [id number] Diagnos is: ICD-10- CM M54.2 Cervica geneia ANDRE MARTE 09/21 [facility] Outpatient Encounter 47033-4.65 [id number] 6 09/21 [facility] Outpatient Encounter 77364-6.65 [id number] 09/23 [facility] OFFICE O/P EST MOD 30 MIN 96631-6.65 [id number] Diagnos is: ICD-10- CM F31.76 Bipolar disorde r, in full remis, most recent episode depress OMAR BLEVINS 09/24 [facility] Outpatient Encounter 04217-3.65 [id number] 2 09/25 [facility] Outpatient Encounter 25007-0.65 [id number] 09/29 [facility] Outpatient Encounter 17947-8.65 [id number] 5 10/02 [facility] CHIROPRACT MANJ XTRSPINL 1/ 60477-3.65 [id number] 052 Diagnos is: ICD-10- CM M54.59 Other low back pain ANDRE MARTE 10/09 [facility] Outpatient Encounter 16809-8.65 [id number] 3 10/09 [facility] SYNCH AUDIO-ONLY EST SF 10 75609-1.65 [id number] 942 Diagnos is: ICD-10- CM E66.01 Morbid (severe ) obesity due to excess calorie s THOMAS BLACK R 10/09 [facility] Outpatient Encounter 14028-7.65 [id number] 2 10/12 [facility] Outpatient Encounter 76098-4.65 [id number] WALT WHITE R 10/12 [facility] Outpatient Encounter 08615-0.65 [id number] 5 10/13 [facility] Outpatient Encounter 55453-5.65 [id number] 10/16 [facility] Outpatient Encounter 23782-1.65 [id number] 3 10/16 [facility] Outpatient Encounter 29720-0.65 [id number] 10/27 [facility] Outpatient Encounter 59926-4.65 [id number] 10/27 [facility] Outpatient Encounter 01652-0.65 [id number] 5 11/03 [facility] CHIROPRACT MANJ XTRSPINL 1/ 91093-5.65 [id number] 907 Diagnos is: ICD-10- CM M54.59 Other low back pain ANDRE MARTE ASE NICOLEL 11/06 [facility] Outpatient Encounter 97558-3.65 [id number] 1 11/11 [facility] OFF/OP EST OCTOBER X REQ PHY/QHP 95686-2.65 [id number] 605 Diagnos is: ICD-10- CM R60.9 Edema, unspeci fied CUSTRED,TO RRI J 11/17 [facility] OFFICE O/P EST HI 40 MIN 85846-8.65 [id number] 178 Diagnos is: ICD-10- CM Z00.01 Encount er for general adult medical exam w abnorma l finding s THOMAS BLACK 11/20 [facility] Outpatient Encounter 51873-8.65 [id number] HUGH VALENTIN NNIFER 11/23 [facility] MTMS BY PHARM ADDL 15 MIN 08718-2.65 [id number] 567 Diagnos is: ICD-10- CM E11.65 Type 2 diabete s mellitu s with hypergl ycemia IRVING KIRKPATRICK 11/23 [facility] [facility] [place] [facility] MTMS BY PHARM [address] 15 MIN 54227-9.65 [id number] 637 Diagnos is: ICD-10- CM E11.65 Type 2 diabete s mellitu s with hypergl ycemia SHIREEN SIN V 11/24 [place] [facility] Outpatient Encounter 56743-5.65 [id number] 11/25 [facility] CHIROPRACT MANJ XTRSPINL 1/> 26451-1.65 [id number] Diagnos is: ICD-10- CM M54.59 Other low back pain ANDRE MARTE NICOLLE 11/27 [facility] Outpatient Encounter 56060-1.65 [id number] 12/01 [facility] En[facility] 16729-6.65 [id number] 922 12/08 [place] [facility] [place] [facility] PH1 ASSMT&MGMT NQHP 5-10 70314-4.65 [id number] 543 Diagnos is: ICD-10- CM 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 Social History Type Response Date Comment Sourc e Tobacco smoking status NHIS VA-TOBACCO SCREEN FOLLOW-UP 11/20/2024 [facility] History of tobacco use VA-TOBACCO USE ADVICE 11/20/2024 [facility] History of tobacco use VA-TOBACCO USE SOME DAYS CIGARETTES 09/17/2024 [facility] History of tobacco use VA-TOBACCO USER EVERY DAY 09/10/2023 [facility] History of tobacco use VA-TOBACCO FORMER USER 09/19/2022 [facility] History of tobacco use [place]-TO[place]ACCO DOESNT USE WI 30 MIN WAKEUP 03/20/2021 [facility] History of tobacco use [place] FORMER USER 03/07/2020 [facility] History of tobacco use QUIT TOBACCO >12 MO and <7 YRS AGO 03/11/2018 [facility] History of tobacco use QUIT TOBACCO >7 YEARS AGO 08/12/2015 [facility] History of tobacco use QUIT TOBACCO IN THE LAST 12 MONTHS 04/15/2014 [facility] History of tobacco use QUIT TOBACCO >12 MO and <7 YRS AGO 01/28/2013 [facility] Plan of Care List of future care activities from [facility] facilities. Additional future care activities may be listed in the Assessment and Plan section. Date/Time Care Activity Care Activity Detail Vilma roca 01/05/2025 [facility]BUL[facility] - MEDICINE AM[facility]ULATORY - [facility]ICI [facility] [place] [facility]
[2024-12-28 07:45] VITALS: BP 156/126; PULSE 88; RESP 16; TEMP 36.7; O2SAT 94; BMI 56.4
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
--- OUTSIDE RECORDS SUMMARY | 2024-12-28 07:46 | XMS_ITS | Data Portability ---
Author Organization [facility]ton Larios [facility] Address [address] [address] Assessment No assessment recorded. Plan of Treatment Reminders Order Date Submit Date Provider Last Modified By Organization Details Last Modified Time Details Appointments None recorded. Lab None recorded. Referral None recorded. Procedures None recorded. Surgeries None recorded. Imaging None recorded. Medication Orders salicylic acid 26 % topical liquid 2023 024 [facility], [address], [place], [address], 4 11:50:49 Patient TargetsNo targets recorded. Patient InstructionsNo instructions recorded. Reason for Referral None Reported. Problems Name Problem SNOMED Code Status Onset Date Resolution Date Notes Provider Name and Address Organization Details Recorded Time Backache 305940590 Active 2012 back pain; 9:54AM by Alysia Mehta LPN, Office Visit; Promote d; acuity set as *; Not Available [facility] 3 03:08:12 Bipolar disorder 40780380 Active 2012 Bipolar ; 9:54AM by Alysia Mehta LPN, Office Visit; Promote d; acuity set as *; Not Available [facility] 3 03:08:12 History of adenoidectom y 116662832 Active 2012 Adenoid ectomy; 9:54AM by Alysia Mehta LPN, Office Visit; Promote d; acuity set as *; Not Available [facility] 3 03:08:12 Hyperlipidem ia 93162989 Active 2012 Hyperli pidemia ; 9:54AM by Alysia Mehta LPN, Office Visit; Promote d; acuity set as *; Not Available [facility] 3 03:08:12 Vasectomy Active 2012 Vasecto my; 9:54AM by Alysia Mehta LPN, Office Visit; Promote d; acuity set as *; [facility] 3 03:08:12 Obesity 865362407 Active 2012 Obesity ; 9:54AM by Alysia Mehta LPN, Office Visit; Promote d; acuity set as *; Not Available [facility] 3 03:08:12 Asthma 916853451 Active 2012 Asthma; 9:54AM by Alysia Mehta LPN, Office Visit; Promote d; acuity set as *; [facility] 3 03:08:12 Cholecystect markus Active 2012 cholecy stectom y; 9:54AM by Alysia Mehta LPN, Office Visit; Promote d; acuity set as *; [facility] Available [facility] 3 03:08:12 Benign essential hypertension 6301014 Active 2012 Hyperte nsion; 9:54AM by Alysia Mehta LPN, Office Visit; Promote d; acuity set as *; [facility] Available [facility] 3 03:08:12 Problem Notes None recorded. Medical Equipment None Reported. Allergies Allergen ID Allergen Name Allergen Category Reaction Reaction Severity Criticality Documentation Date Start Date Code Code System Note Provider Name and Address Organization Details Recorded Time 48972 morphine sulfate medicatio n other Not available Not available 12/29/2022 56366 RxNorm React ion: _didn t recog nize any famil y membe rs_; Comme nt: Recor ded 04/07 9:54A M by Alysia griffin LPN, Offic e Visit ; Promo vargas; Efren montes ce: *; ; Not Available [facility] 3 02:27:20 27404 fentanyl medicatio n Not available Not available Not available 06/17/2023 4337 RxNorm ROSALIND Chris [facility], [place]ain 4 11:32:37 Medications Name Sig Start Date Stop Date Status Note LastModified by Organization Details LastModified Time amoxicilli n 500 mg capsule TAKE 1 CAPSULE BY MOUTH THREE TIMES DAILY UNTIL GONE active Not Available Not Available No t Available doxycyclin e hyclate 100 mg capsule TAKE 1 CAPSULE BY MOUTH TWICE DAILY active Not Available Not Available No t Available trazodone 50 mg tablet TAKE 1 TABLET BY MOUTH AT BEDTIME active Not Available Not Available No t Available meloxicam 15 mg tablet TAKE 1 TABLET BY MOUTH ONCE DAILY active Not Available Not Available No t Available Wellbutrin SR 150 mg tablet, 12 hr sustained- release bid active 0; Recorded 3 9:55AM by Alysia Mehta LPN, Office Visit; Not Available Not Available Not Available Ultram 50 mg tablet active 0; Recorded 3 9:55AM by Alysia Mehta LPN, Office Visit; Not Available Not Available Not Available hydralazin e 25 mg tablet TAKE 1 TABLET BY MOUTH TWICE DAILY active Not Available Not Available No t Available Zyrtec 10 mg tablet daily 2014 active 436; Recorded 5 11:22AM by Sahra Reed LPN (Authoriz ed through Armando Ballesteros MD), Refill Request; Refill Quantity: 30; Tablet; Not Available Not Available Not Available amlodipine 10 mg tablet TAKE 1 TABLET BY MOUTH ONCE DAILY active Not Available Not Available No t Available gemfibrozi l 600 mg tablet two times daily 2011 active Recorded 3 9:55AM by Alysia Mehta LPN, Office Visit; Refill Quantity: 60; Tablet; Not Available Not Available Not Available metformin 1,000 mg tablet TAKE 1 TABLET BY MOUTH TWICE DAILY active Not Available Not Available No t Available ranitidine 150 mg tablet daily active 0; Recorded 3 9:55AM by Alysia Mehta LPN, Office Visit; Not Available Not Available Not Available lisinopril 30 mg tablet TAKE 2 TABLETS BY MOUTH ONCE DAILY active Not Available Not Available No t Available Trileptal 300 mg tablet tid active 0; Recorded 3 9:55AM by Alysia Mehta LPN, Office Visit; Not Available Not Available Not Available digoxin 125 mcg (0.125 mg) tablet TAKE 1 TABLET BY MOUTH ONCE DAILY active Not Available Not Available No t Available diazepam 10 mg tablet TAKE 1 TABLET ONCE NEEDED FOR ANXIETY 1 HOUR PRIOR TO MRI active Not Available Not Available No t Available lisinopril 40 mg tablet TAKE 1 TABLET BY MOUTH ONCE DAILY active Not Available Not Available No t Available Novolog FlexPen U-100 Insulin aspart 100 unit/mL (3 mL) subcutaneo us INJECT 15 UNITS SUBCUTANE OUSLY THREE TIMES DAILY BEFORE MEAL(S) active Not Available Not Available No t Available lisinopril -hydrochlo rothiazide daily 2012 active 436; Recorded 3 10:31AM by Sahra Reed LPN (Authoriz ed through Armando Ballesteros MD), Refill Request; Refill Quantity: 30; Tablet; Not Available Not Available Not Available digoxin daily 2013 active needs yearly appt for refills; 436; Recorded 4 5:43PM by Sahra Reed LPN (Authoriz ed through Armando Ballesteros MD), Refill Request; Refill Quantity: 0; Not Available Not Available Not Available Aspirin EC daily 2014 active 436; Recorded 5 12:23PM by Sahra Reed LPN (Authoriz ed through Armando Ballesteros MD), Refill Request; Refill Quantity: 100; Tablet; Not Available Not Available Not Available ibuprofen tid 2010 active Recorded 3 9:54AM by Alysia Mehta LPN, Office Visit; Refill Quantity: 90; Tablet; Not Available Not Available Not Available pravastati n daily 2012 active 436; Recorded 3 10:40AM by Sahra Reed LPN (Authoriz ed through Armando Ballesteros MD), Refill Request; Refill Quantity: 30; Tablet; Not Available Not Available Not Available Prilosec daily 2012 active 436; Recorded 3 12:35PM by Sahra Reed LPN (Authoriz ed through Armando Ballesteros MD), Refill Request; Refill Quantity: 30; Tablet; Not Available Not Available Not Available naproxen sodium active 0; Recorded 3 9:55AM by Alysia Mehta LPN, Office Visit; Not Available Not Available Not Available Diltiazem HCL ER daily 2013 active needs yearly appt for refills; 436; Recorded 4 5:43PM by Sahra Reed LPN (Authoriz ed through Armando Ballesteros MD), Refill Request; Refill Quantity: 0; Not Available Not Available Not Available Novolog U-100 Insulin aspart active mild ss; 0; Recorded 3 9:55AM by Alysia Mehta LPN, Office Visit; Not Available Not Available Not Available Potassium Chloride ER bid 2013 active 436; Recorded 4 11:33AM by Sahra Reed LPN (Authoriz ed through Armando Ballesteros MD), Refill Request; Refill Quantity: 60; Capsule; Not Available Not Available Not Available Lovaza 1 gram capsule bid 2012 active 436; Recorded 3 12:25PM by Sharon Connelly LPN (Authoriz ed through rAmando Ballesteros MD), Annotatio n/Addendu m; Refill Quantity: 120; Capsule; Not Available Not Available Not Available Lantus Solostar U-100 Insulin 100 unit/mL (3 mL) subcutaneo us pen INJECT 70 UNITS SUBCUTANE OUSLY TWICE DAILY active Not Available Not Available No t Available salicylic acid 26 % topical liquid APPLY TWICE DAILY FOR 4 WEEKS 2023 active Not Available Not Available Not Avai lable Victoza 0.6 mg/0.1 mL (18 mg/3 mL) subcutaneo us pen injector sc once daily 2011 active has failed metformin due to side effects; 436; Recorded 2 3:11PM by Sahra Reed LPN (Authoriz ed through Armando Ballesteros MD), Annotatio n/Addendu m; Refill Quantity: 1; Injectabl e; Not Available Not Available Not Available Multivitam ins daily 2014 active am/as; 436; Recorded 5 2:04PM by Megan Weiner RN (Authoriz ed through Armando Ballesteros MD), Refill Request; Refill Quantity: 30; Tablet; Not Available Not Available Not Available Jardiance 25 mg tablet TAKE 1 TABLET BY MOUTH ONCE DAILY active Not Available Not Available No t Available Vitals Date Recorded Body height Body mass index (BMI) Body weight Oxygen saturation Oxygen saturation in Arterial blood by Pulse oximetry Heart rate Body temperature Systolic And Diastolic Provider Name and Address Organization Details Last Updated DateTime 4 177.8 cm 58.7 kg/m2 350122. 28 g 99 % 99 % 75 /min 97.3 [degF] 156/98 mm[Hg] Tosha Seth [facility] 4 11:32:09 Social History None recorded. Functional Status None recorded. Mental Status None recorded. Family History Nothing Reported. Medical History No medical history recorded. Immunizations Vaccine Type Date Status Note Provider Nam e and Address Organization Details Recorded Time Tdap 0 completed Not Available [facility] 12/29/2022 02:50:29 Influenza, split virus, trivalent, preservative 0 completed Not Available [facility] 12/29/2022 02:50:30 Past Encounters Encounter ID Performer Location Encounter Start Date Encounter Closed Date Diagnosis/Indication Diagnosis SNOMED-CT Code Diagnosis ICD10 Code Diagnosis Note [id number] [facility] ([facility] [address] [place] [phone] 06/17/2023 11:15:52 06/17/2023 12:24:04 Hand wart 850828901 B07.8 Will start salicylic acid twice daily for 4 weeks. Discussed with patient that these generally take several weeks to improve. If no improvemen t in 2 months, should follow up with PCP for repeat cryotherap y. Patient is agreeable to plan of care. Health Concerns Section Related Observation LastModified by Organization Detai ls LastModified Time None Recorded Concern Status LastModified by Organization Details LastModified Time None Recorded Advance Directives Directive None Recorded Payers Insurance Date Sequence Insurance Name Policy Number Policy More[place] Covered Member ID Moreira Member ID Guarantor Name 06/17/2023 1 [place] Tyree Buckley [id number] Tyree Buckley 06/19/2023 [place] [facility] Tyree Buckley [id number] Tyree Buckley
--- OUTSIDE RECORDS SUMMARY | 2024-12-28 07:46 | XMS_ITS | Patient Health Record ---
Author Organization [facility] Address [address] [place] [address] Support Name Relationship Address Phone Tyree Buckley Guarantor Unknown Reason For Referral No Information Plan Of Treatment Next Appt Details Provider Name:Venus Jack, 02/02/2025 09:40:00 AM, [address] [facility] [place], [address],
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
[2024-12-28 08:08] LABS: Hematocrit 46.0 % (37-53); Hemoglobin 15.20 g/dL (11.27-16.99); Mean Corpuscular HGB Conc 33.0 g/dL (30-55); Mean Corpuscular Hemoglobin 26.2 pg (27-33); Mean Corpuscular Volume 79.3 fl (82-101); Nucleated Red Blood Cells % 0 %; Platelet Count 283 10^3/cmm (157-399); Red Blood Count 5.80 10^6/uL (3.85-5.65); White Blood Count 7.54 10^3/uL (3.29-11.43)
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
[2024-12-28 08:31] LABS: Alanine Aminotransferase 30 U/L (0-41); Albumin Level 3.9 g/dL (3.5-5.2); Alkaline Phosphatase 90 U/L (40-130); Anion Gap 15.7 (5-19); Aspartate Amino Transferase 20 U/L (0-40); Blood Urea Nitrogen 7 mg/dL (6-20); Calcium 9.0 mg/dL (8.5-10.5); Carbon Dioxide 23 mmol/L (22-29); Chloride 103 mmol/L (98-107); Creatinine Clr Calc Pharmacy 253.1240; Globulin 3.0 g/dL (1.3-4.6); Glucose 183 mg/dL (65-115); Osmolality Calculated 289 mOsm/kg (285-295); Potassium 3.7 mmol/L (3.5-5.1); Sodium 138 mmol/L (136-145); Total Protein 6.9 g/dL (6.6-8.7)
[2024-12-28 08:59] VITALS: BP 146/119; PULSE 76; O2SAT 96
[2024-12-28 09:20] LABS: Glucose Urine UA Negative (Normal); Nitrate Urine Negative (Negative); Specific Gravity, Urine 1.027 (1.005-1.030)
[2024-12-28 09:26] LABS: Add Urine Microscopic? YES
[2024-12-28 09:40] VITALS: BP 149/119; PULSE 76; O2SAT 98
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
== END 2024-12-28 09:54 | disposition home or self-care (01) ==
PROVIDERS: Emergency Provider Family Medicine; PCP Family Medicine
DX: S39.012A Strain of muscle, fascia and tendon of lower back, initial encounter (principal); Z79.84 Long term (current) use of oral hypoglycemic drugs; Z79.82 Long term (current) use of aspirin; Z79.4 Long term (current) use of insulin; F17.290 Nicotine dependence, other tobacco product, uncomplicated; E11.42 Type 2 diabetes mellitus with diabetic polyneuropathy; V89.2XXA Person injured in unspecified motor-vehicle accident, traffic, initial encounter
CPT/HCPCS: 72100; 72131; 80053; 81001; 85025; 99284

== ENCOUNTER → 2024-12-29 07:09 | Outpatient (BNVA) | payer OTHER, SELFPAY ==
[2024-09-15 12:35] VITALS: BP 201/110; BMI 56.7
== END ==
PROVIDERS: PCP Family Medicine; Visit Provider Podiatrist Foot & Ankle Surgery
DX: E11.42 Type 2 diabetes mellitus with diabetic polyneuropathy (principal); L60.3 Nail dystrophy; L84 Corns and callosities; I73.9 Peripheral vascular disease, unspecified; R23.4 Changes in skin texture; M21.41 Flat foot [pes planus] (acquired), right foot; M21.42 Flat foot [pes planus] (acquired), left foot; Z79.4 Long term (current) use of insulin; Z79.84 Long term (current) use of oral hypoglycemic drugs
CPT/HCPCS: 11056; 11721; 99213

== ENCOUNTER 2025-01-20 10:08 | Emergency (ER) | payer OTHER, SELFPAY ==
[2024-09-15 12:35] VITALS: BP 201/110; BMI 56.7
--- OUTSIDE RECORDS SUMMARY | 2025-01-19 06:00 | XMS_ITS | Encounter Summary ---
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 Date/Time Encounter Type Encounter Description Reason Provider Source Jan 19, 2025 11:00 AM SYNCH AUDIO-VIDEO EST MOD [facility] - [place] ICD-10-CM F43.10 Post-traumatic stress disorder, unspecified OMAR BLEVINS Sera Encounter Template Text not used by [place] Assessments - Encounter Diagnoses This section includes the primary and secondary diagnoses documented for the Encounter. Date/Time Primary/Secondary Diagnosis Diagnosis Name Provider Source Jan 19, 2025 12:46 PM PRIMARY Post-traumatic stress disorder, unspecified OMAR BLEVINS [facility] Jan 19, 2025 12:46 PM SECONDARY Alcohol abuse, in remission OMAR BLEVINS [facility] Jan 19, 2025 12:46 PM SECONDARY Bipolar disorder, in full remis, most recent episode depress OMAR BLEVINS [facility] Plan of Treatment: Future Appointments (+ 6 [...] 20 appointments. The data comes from all [facility]. Appointment Date/Time Appointment Type Appointme nt Facility Name Jan 20, 2025 09:00 AM AMBULATORY - MEDICINE [facility] Jan 21, 2025 08:30 AM AMBULATORY - MEDICINE [facility] Jan 21, 2025 08:32 AM AMBULATORY - MEDICINE [place] [facility] Jan 26, 2025 09:00 AM AMBULATORY - MEDICINE [facility] Feb 02, 2025 09:40 AM AMBULATORY - MEDICINE [place] [facility] Feb 02, 2025 01:00 PM AMBULATORY - MEDICINE [facility] Feb 09, 2025 09:00 AM AMBULATORY - MEDICINE [facility] Feb 19, 2025 09:20 AM AMBULATORY - MEDICINE [facility] Feb 24, 2025 01:20 PM AMBULATORY - MEDICINE [facility] Mar 09, 2025 10:00 AM AMBULATORY - MEDICINE [facility] Mar 23, 2025 09:00 AM AMBULATORY - MEDICINE [facility] Apr 06, 2025 08:20 AM AMBULATORY - MEDICINE [facility] Apr 20, 2025 08:40 AM AMBULATORY - MEDICINE [facility] May 04, 2025 09:20 AM AMBULATORY - MEDICINE [facility] Active, Pending, and Scheduled Orders This section includes a listing of several types of active, pending, and scheduled orders, including clinic medications orders, diagnostic test orders, procedure orders and consult orders; where the start date of the order is 45 days before the date of the Encounter or 45 days after the date of theEncounter. The data comes from all [facility]. Test Date/Time Test Type Test Details Facility Name Jan 05, 2025 08:39 AM Consult Order PROSTHETIC S REQUEST - FLOW SHOES AND INSERTS 657A4 Cons Utility System Repairer's Choice [facility] Jan 06, 2025 12:00 AM Laboratory - Chemi stry Order OCCULT BLOOD FIT X1 SCREEN STOOL FECES SP [facility] Jan 20, 2025 09:53 AM Consult Order COMMUNITY CARE-EMERGENCY ROOM [id number] Cons Utility System Repairer's Choice [facility] Feb 20, 2025 12:00 AM Laboratory - Chemi stry Order TESTOSTERONE, TOTAL (PB-MA) GOLD/RED SST SERUM [facility] Feb 20, 2025 12:00 AM Laboratory - Chemi stry Order VITAMIN D, 25-HYDROXY GOLD/RED SST SERUM [facility] Lab Results: +/- 30 days of the encounter This section includes the Chemistry and Hematology Lab Results on record with [place] for the patient. Radiology Reports and Pathology Reports are provided separately, in subsequent sections. Lab Results This section contains the Chemistry/Hematology Results that were resulted 30 days before or 30 daysafter the date of the Encounter. Date/Time Source Result Type Result - Unit Interpretation Reference Range Specimen Type Comment Jan 06, 2025 01:43 PM [facility] HGA1C BLOOD Specimen Type: BLOOD No comment entered. Ordering Provider: IRVING KIRKPATRICK Report Released Date/Time: Jan 05, 2025 12:48 PM Reporting Lab: [place] [facility] [address] [place] [id number] Performing Lab: [place] [facility] [address] [place] [id number] HGA1C 9.6 H 4.0-6.0 Jan 06, 2025 01:43 PM [facility] BASIC METABOLIC PANEL PLASMA Specimen Type: PL ASMA No comment entered. Ordering Provider: IRVING KIRKPATRICK Report Released Date/Time: Jan 05, 2025 12:48 PM Reporting Lab: [place] [facility] [address] [place] [id number] Performing Lab: [place] [facility] [address] [place] [id number] CREATININE 0.80 mg/dL 0.7-1.3 UREA NITROGEN 8 [...] and tobacco- related health factors from the [place] facility where the Encounter took place. Current Smoking Status This section includes the most current smoking, or tobacco-related health factor, from the [place] facility where the Encounter took place. Date/Time Current Smoking Status Comment Facil ity Nov 20, 2024 08:30 AM VA-TOBACCO USE ADVICE [facility] Tobacco Use History This section includes a history of the smoking, or tobacco-related health factors, that were collected on or before the date of the Encounter. The data comes from the [place] facility where the Encounter took place. 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 [facility] Nov 20, 2024 08:30 AM VA-TOBACCO USE MED NO [facility] Sep 19, 2022 10:00 AM VA-TOBACCO FORMER USER [facility] Sep 19, 2022 10:00 AM VA-TOBACCO QUIT 5 TO < 15 YRS [facility] Mar 20, 2021 10:30 AM VA-TOBACCO DOESNT USE WI 30 MIN WAKEUP [facility] Mar 20, 2021 10:30 AM VA-TOBACCO USE > 1 5 LESS THAN 30 YEARS [facility] Mar 20, 2021 10:30 AM VA-TOBACCO USE ADVICE [facility] Mar 20, 2021 10:30 AM VA-TOBACCO USE 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 YES interested in patches [facility] Mar 20, 2021 10:30 AM VA-TOBACCO USE MED NOTIFY PROVIDER Interested in patches [facility] Mar 20, 2021 10:30 AM VA-TOBACCO USER EVERY DAY [facility] Mar 07, 2020 02:00 PM VA-TOBACCO FORMER USER [facility] Mar 07, 2020 02:00 PM VA-TOBACCO QUIT 1 TO < 5 YRS [facility] Mar 11, 2018 11:32 AM QUIT TOBACCO >12 M O & <7 YRS AGO [facility] Aug 12, 2015 11:21 AM QUIT TOBACCO >7 YEARS AGO [facility] Apr 15, 2014 01:29 PM QUIT TOBACCO >12 M O & <7 YRS AGO [facility] Apr 15, 2014 01:29 PM QUIT TOBACCO IN TH E LAST 12 MONTHS [facility] Jan 28, 2013 01:13 PM QUIT TOBACCO >12 M O & <7 YRS AGO [facility] Encounter Notes: All associated encounter notes This section contains the clinical notes associated to the Encounter. Date/Time Encounter Note(s) Provider Source Jan 19, 2025 11:30 AM PRIMARY CARE EDUCA TION NOTE: LOCAL TITLE: OPT PHY INSTR AUTO PB STANDARD TITLE: PRIMARY CARE EDUCATION NOTE DATE OF NOTE: JAN 19, 2025@11:30 ENTRY DATE: JAN 19, 2025@12:47:18 AUTHOR: OMAR BLEVINS COSIGNER: URGENCY: STATUS: COMPLETED This documentation is related to: . F/U Visit Description of Today's Injury/Illness: MH MED MGMT Mental Health Testing: None RETURN TO CLINIC: Return appointment is needed. . Special Instructions: . None. MEDICATION REVIEW/ASSESSMENT & PLAN: 1. Continue medications 2. Continue therapy 3. RTC 6 months Allergies/ADRs (Tool #5) FACILITY ALLERGY/ADR -------- No Remote Allergy/ADR Data available for this patient [facility] FENT[facility]L [facility] MORPHINE [facility] OZ[facility] Med. Reconciliation (Tool #1) INCLUDED IN THIS LIST: Alphabetical list of active outpatient prescriptions dispensed from this VA (local) and dispensed from another VA or DoD facility (remote) as well as inpatient orders (local pending and active), local clinic medications, locally documented non-VA medications, and local prescriptions that have or been discontinued in the past 90 days. Non-VA Meds Last Documented On: Sep 25, 2023 NOTE The display of VA prescriptions dispensed from another [place] or DoD facility (remote) is limited to active outpatient prescription entries matched to National Drug File at the originating site and may not include some items such as investigational drugs, compounds, etc. NOT INCLUDED IN THIS LIST: Medications self-entered by the patient into personal health records (i.e. [facility]) are NOT included in this list. Non-VA medications documented outside this [place], remote inpatient orders (regardless of status) and remote clinic medications are NOT included in this list. The patient and provider must always discuss medications the patient is taking, regardless of where the medication was dispensed or obtained. OUTPT AMLODIPINE BESYLATE 10MG TAB (Status = Discontinued) TAKE ONE TABLET BY MOUTH ONCE A DAY FOR HIGH BLOOD PRESSURE Rx# [id number] Last Released: 06/30/24 Qty/Days Supply: 90/ Rx Expiration Date: 10/25/24 Refills Remainin Indication: FOR HIGH BLOOD PRESSURE OUTPT AMLODIPINE BESYLATE 10MG TAB (Status = Active) TAKE ONE TABLET BY MOUTH ONCE A DAY FOR HIGH BLOOD PRESSURE Rx# [id number] Last Released: 11/09/24 Qty/Days Supply: 90/ Rx Expiration Date: 11/07/25 Refills Remainin Indication: FOR HIGH BLOOD PRESSURE OUTPT ASPIRIN 81MG EC TAB (Status = Discontinued) TAKE ONE TABLET BY MOUTH ONCE A DAY FOR CARDIOVASCULAR DISEASE TAKE WITH FOOD. Rx# [id number] Last Released: 07/04/24 Qty/Days Supply: 120/90 Rx Expiration Date: 10/25/24 Refills Remainin Indication: FOR CARDIOVASCULAR DISEASE OUTPT ASPIRIN 81MG EC TAB (Status = Active) TAKE ONE TABLET BY MOUTH ONCE A DAY FOR CARDIOVASCULAR DISEASE TAKE WITH FOOD. Rx# [id number] Last Released: 11/11/24 Qty/Days Supply: 120/90 Rx Expiration Date: 11/07/25 Refills Remainin Indication: FOR CARDIOVASCULAR DISEASE OUTPT CALCIUM CARBONATE 650MG (CA 260MG) TAB (Status = Active) TAKE ONE TABLET BY MOUTH TWICE A DAY FOR CALCIUM SUPPLEMENTATION Rx# [id number] Last Released: 11/25/24 Qty/Days Supply: 180/90 Rx [...] DOSE WITH RULER ATTACHED INSIDE BOX) Rx# [id number] Last Released: 11/04/24 Qty/Days Supply: 100/30 Rx Expiration Date: 02/04/25 Refills Remainin Indication: FOR PAIN OUTPT DIGOXIN 125MCG TAB (Status = Discontinued) TAKE ONE TABLET BY MOUTH ONCE A DAY FOR HEART ARRHYTHMIAS Rx# [id number] Last Released: 07/04/24 Qty/Days Supply: Rx Expiration Date: 10/25/24 Refills Remainin Indication: FOR HEART ARRHYTHMIAS OUTPT DIGOXIN 125MCG TAB (Status = Active) TAKE ONE TABLET BY MOUTH ONCE A DAY FOR HEART ARRHYTHMIAS Rx# [id number] Last Released: 11/10/24 Qty/Days Supply: Rx Expiration Date: 11/07/25 Refills Remainin Indication: FOR HEART ARRHYTHMIAS OUTPT EMPAGLIFLOZIN 25MG TAB (Status = ) TAKE ONE TABLET BY MOUTH ONCE A DAY FOR DIABETES Rx# [id number] Last Released: 11/04/24 Qty/Days Supply: Rx Expiration Date: 01/17/25 Refills Remainin Indication: FOR DIABETES OUTPT ERGOCALCIF 1,250MCG (D2-50,000UNIT) CAP (Status = Active) TAKE ONE CAPSULE BY MOUTH EVERY WEEK FOR VITAMIN D DEFICIENCY Rx# [id number] Last Released: 11/24/24 Qty/Days Supply: Rx Expiration Date: 02/18/25 Refills Remainin Indication: FOR VITAMIN D DEFICIENCY Non-VA FISH OIL 1000MG ORAL CAP TAKE 2 CAPSULES BY MOUTH THREE TIMES A DAY WITH MEALS Sep 20, 2022 Non-VA medication recommended by [place] provider. Patient wants to buy from Non-VA pharmacy. increased dose AND freq. Indication: FOR HIGH TRIGLYCERIDES OUTPT FLUTICASONE PROP 50MCG 120D NASAL INHL (Status = Active) INSTILL 1 SPRAY IN NOSTRIL(S) ONCE A DAY FOR RHINITIS (MUST BE USED DIRECTED FOR MINIMUM OF 21 DAYS TO PROVIDE ADEQUATE BENEFITS) Rx# [id number] Last Released: 11/05/24 Qty/Days Supply: Rx Expiration Date: 02/24/25 Refills Remainin Indication: FOR RHINITIS OUTPT GLIPIZIDE 10MG TAB (Status = Discontinued) TAKE ONE TABLET BY MOUTH THREE TIMES A DAY BEFORE MEALS FOR DIABETES TAKE 30 MINUTES BEFORE EATING. Rx# [id number] Last Released: 07/04/24 Qty/Days Supply: 270 Rx Expiration Date: 10/25/24 Refills Remainin Indication: FOR DIABETES OUTPT HYDROCORTISONE 1% CREAM (Status = Active) APPLY SPARINGLY TO AFFECTED AREA(S) THREE TIMES A DAY NEEDED FOR SEBORRHEIC DERMATITIS FOR EXTERNAL USE ONLY. APPLY SPARINGLY. Rx# [id number] Last Released: 11/24/24 Qty/Days Supply: Rx Expiration Date: 11/21/25 Refills Remainin Indication: FOR SEBORRHEIC DERMATITIS OUTPT INSULIN,ASPART(EQV-NOVLG)100UN /ML FLXPEN (Status = ) INJECT 20 UNITS UNDER THE SKIN THREE TIMES A DAY BEFORE MEALS FOR DIABETES ADMINISTER 10 MINUTES BEFORE FOOD DIRECTED. REFRIGERATE UN-OPENED PENS. DISCARD CARTRIDGE 28 DAYS AFTER OPENING. Rx# [id number] Last Released: 07/02/24 Qty/Days Supply: Rx Expiration Date: 10/25/24 Refills Remainin Indication: FOR DIABETES OUTPT INSULIN,GLARGINE 100 UNT/ML 3ML SOLOSTAR (Status = Active) INJECT 85 UNITS UNDER THE SKIN TWICE A DAY FOR DIABETES ADMINISTER AT SAME TIME EACH DAY DIRECTED. DISCARD ANY OPEN CARTRIDGE AFTER 28 DAYS. Rx# [id number] Last Released: 11/09/24 Qty/Days Supply: 50 Rx Expiration Date: 04/04/25 Refills Remainin Indication: FOR DIABETES OUTPT ISOSORBIDE MONONITRATE 30MG SA TAB (Status = ) TAKE ONE TABLET BY MOUTH TWICE A DAY FOR CHEST PAIN TAKE ON EMPTY STOMACH. SWALLOW WHOLE. DO NOT CRUSH OR CHEW. Rx# [id number] Last Released: 07/02/24 Qty/Days Supply: 180/90 Rx Expiration Date: 10/25/24 Refills Remainin Indication: FOR CHEST PAIN OUTPT KETOCONAZOLE 2% CREAM (Status = Active) APPLY SPARINGLY TO AFFECTED AREA(S) TWICE A DAY FOR SEBORRHEIC DERMATITIS (EXTERNAL USE ONLY) Rx# [id number] Last Released: 11/24/24 Qty/Days Supply: 60/90 Rx Expiration Date: 11/21/25 Refills Remainin Indication: FOR SEBORRHEIC DERMATITIS OUTPT KETOCONAZOLE 2% SHAMPOO (Status = Active) USE SHAMPOO TO AFFECTED AREA(S) ONCE A DAY FOR SEBORRHEIC DERMATITIS (EXTERNAL USE ONLY) (SHAKE WELL) Rx# [id number] Last Released: 11/24/24 Qty/Days Supply: 360/90 Rx Expiration Date: 11/21/25 Refills Remainin Indication: FOR SEBORRHEIC DERMATITIS OUTPT LACTOBACILLUS ACIDOPHILUS CHEW TAB (Status = ) CHEW AND SWALLOW 2 CAP/TABS BY MOUTH THREE TIMES A DAY FOR NUTRITION/DIETARY SUPPLEMENTATION FOLLOW EACH DOSE WITH A SMALL AMOUNT OF MILK, FRUIT JUICE, OR WATER. KEEP REFRIGERATED AFTER OPENING BOTTLE. Rx# [id number] Last Released: 04/04/24 Qty/Days Supply: 600/90 Rx Expiration Date: 10/25/24 Refills Remainin Indication: FOR NUTRITION/DIETARY SUPPLEMENTATION OUTPT LAMOTRIGINE 200MG TAB (Status = Active) TAKE ONE-HALF TABLET BY MOUTH ONCE A DAY NEEDED FOR BIPOLAR DISORDER Rx# [id number] Last Released: 11/17/24 Qty/Days Supply: 45/ Rx Expiration Date: 06/24/25 Refills Remainin Indication: FOR BIPOLAR DISORDER OUTPT LISINOPRIL 40MG TAB (Status = Active) TAKE TWO TABLETS BY MOUTH ONCE A DAY FOR HIGH BLOOD PRESSURE DOSE INCREASE Rx# [id number] Last Released: 11/05/24 Qty/Days Supply: 180/90 Rx Expiration Date: 02/24/25 Refills Remainin Indication: FOR HIGH BLOOD PRESSURE OUTPT LURASIDONE HCL 40MG TAB (Status = Active) TAKE ONE TABLET BY MOUTH ONCE A DAY FOR BIPOLAR DISORDER - TAKE WITH LARGEST MEAL OF THE DAY Rx# [id number] Last Released: 11/05/24 Qty/Days Supply: 90/90 Rx Expiration Date: 03/24/25 Refills Remainin Indication: FOR BIPOLAR DISORDER OUTPT METFORMIN HCL 500MG 24HR SA TAB (Status = ) TAKE TWO TABLETS BY MOUTH ONCE A DAY FOR DIABETES TAKE WITH FOOD. AVOID ALCOHOL. DISCONTINUE BEFORE GETTING XRAY DYE. Rx# [id number] Last Released: 05/05/24 Qty/Days Supply: 60/30 Rx [...] ALCOHOL. DISCONTINUE BEFORE GETTING XRAY DYE. Rx# [id number] Last Released: 11/25/24 Qty/Days Supply: 290/90 Rx Expiration Date: 11/24/25 Refills Remainin Indication: FOR DIABETES OUTPT METOPROLOL TARTRATE 50MG TAB (Status = ) TAKE ONE-HALF TABLET BY MOUTH TWICE A DAY FOR HIGH BLOOD PRESSURE TAKE WITH OR IMMEDIATELY FOLLOWING FOOD. Rx# [id number] Last Released: 06/29/24 Qty/Days Supply: 90/90 Rx Expiration Date: 10/25/24 Refills Remainin Indication: FOR HIGH BLOOD PRESSURE OUTPT NALTREXONE (EQV-REVIA) 50MG TAB (Status = Active) TAKE ONE TABLET BY MOUTH ONCE A DAY FOR ASSISTANCE WITH DEPENDENCY Rx# [id number] Last Released: 11/05/24 Qty/Days Supply: 90/90 Rx Expiration Date: 06/24/25 Refills Remainin Indication: FOR ASSISTANCE WITH DEPENDENCY OUTPT OMEPRAZOLE 40MG EC CAP (Status = Active) TAKE ONE CAPSULE BY MOUTH EVERY MORNING BEFORE A MEAL FOR GASTROESOPHAGEAL REFLUX DISEASE TAKE 30 MINUTES PRIOR TO FOOD. Rx# [id number] Last Released: 11/10/24 Qty/Days Supply: 90/90 Rx Expiration Date: 11/07/25 Refills Remainin Indication: FOR GASTROESOPHAGEAL REFLUX DISEASE OUTPT PSYLLIUM ORAL PWD (Status = ) MIX AND DRINK 2 TEASPOONFULS BY MOUTH ONCE A DAY FOR CONSTIPATION MIX IN GLASS OF WATER/JUICE. FLAVOR SUBSTITUTIONS MAY/WILL OCCUR AND SPECIFIC VARIETIES WILL NOT BE PROVIDED. Rx# [id number] Last Released: 03/18/24 Qty/Days Supply: 1170/ Rx Expiration Date: 10/25/24 Refills Remainin Indication: FOR CONSTIPATION OUTPT ROSUVASTATIN CA 40MG TAB (Status = ) TAKE ONE TABLET BY MOUTH EVERY EVENING FOR HIGH CHOLESTEROL Rx# [id number] Last Released: 11/04/24 Qty/Days Supply: Rx Expiration Date: 01/17/25 Refills Remainin Indication: FOR HIGH CHOLESTEROL OUTPT SITAGLIPTIN (EQV-ZITUVIO) 100MG TAB (Status = Discontinued) TAKE ONE TABLET BY MOUTH ONCE A DAY FOR DIABETES Rx# [id number] Last Released: 11/05/24 Qty/Days Supply: Rx Expiration Date: 01/17/25 Refills Remainin Indication: FOR DIABETES OUTPT TIRZEPATIDE 2.5MG/0.5ML INJ,SOLN PACK,4 (Status = Discontinued) INJECT 2.5MG(0.5ML) UNDER THE SKIN EVERY WEEK FOR DIABETES (ADMINISTER DOSE AT ANY TIME OF DAY, WITH OR WITHOUT MEALS) Rx# [id number] Last Released: Supply: 07/02 Rx Expiration Date: 11/25/25 Refills Remainin Indication: FOR DIABETES OUTPT TIRZEPATIDE 2.5MG/0.5ML INJ,SOLN PACK,4 (Status = Discontinued) INJECT 2.5MG(0.5ML) UNDER THE SKIN EVERY WEEK FOR DIABETES (ADMINISTER DOSE AT ANY TIME OF DAY, WITH OR WITHOUT MEALS) Rx# [id number] Last Released: 11/30/24 Qty/Days Supply: 07/02 Rx Expiration Date: 11/25/25 Refills Remainin Indication: FOR DIABETES OUTPT TIRZEPATIDE 5MG/0.5ML INJ,SOLN PACK,4 (Status = Active) INJECT 5MG(0.5ML) UNDER THE SKIN EVERY WEEK FOR DIABETES (ADMINISTER DOSE AT ANY TIME OF DAY, WITH OR WITHOUT MEALS) Rx# [id number] Last Released: 01/11/25 Qty/Days Supply: 07/02 Rx Expiration Date: 01/06/26 Refills Remainin Indication: FOR DIABETES OUTPT UREA 40% CREAM (Status = Active) APPLY TOPICALLY TO AFFECTED AREA(S) ONCE A DAY RUB IN UNTIL COMPLETELY ABSORBED. FOR TOPICAL USE ONLY. Rx# [id number] Last Released: 12/30/24 Qty/Days Supply: Rx Expiration Date: 12/30/25 Refills Remainin SUPPLIES OUTPT GLUCOSE SENSOR FREESTYLE ALFREDO 3 (Status = Discontinued) USE SENSOR EVERY 2 WEEKS FOR BLOOD SUGAR MONITORING CHANGE SENSOR/SITE EVERY 14 DAYS. TO REPLACE SENSOR FOR ANY REASON OR FOR TECHNICAL HELP PLEASE CALL [facility] DESK: -SPECIFIC PHONE NUMBER: [phone]). Rx# [id number] Last Released: 11/05/24 Qty/Days Supply: Rx Expiration Date: 05/14/25 Refills Remainin Indication: FOR BLOOD SUGAR MONITORING OUTPT GLUCOSE SENSOR FREESTYLE ALFREDO 3 PLUS (Status = Active) USE SENSOR EVERY 15 DAYS FOR BLOOD SUGAR MONITORING CHANGE SENSOR/SITE EVERY 15 DAYS. TO REPLACE SENSOR FOR ANY REASON OR FOR TECHNICAL HELP PLEASE CALL [facility] DESK: -SPECIFIC PHONE NUMBER: ([phone]). Rx# [id number] Last Released: 11/25/24 Qty/Days Supply: Rx Expiration Date: 11/24/25 Refills Remainin Indication: FOR BLOOD SUGAR MONITORING OUTPT NEEDLE,PEN 31G,5MM (Status = Active) USE 1 NEEDLE UNDER THE SKIN TWICE A DAY FOR INJECTION Rx# [id number] Last Released: 11/26/24 Qty/Days Supply: Rx Expiration Date: 11/24/25 Refills Remainin Indication: FOR INJECTION OUTPT SHARPS DISPOSAL CONTAINER 2 GALLON SIZE (Status = Active) USE DIRECTED NEEDED SHARPS DISPOSAL Rx# [id number] Last Released: 01/14/25 Qty/Days Supply: Rx Expiration Date: 04/05/25 Refills Remainin Indication: SHARPS DISPOSAL OUTPT TRANSPARENT DRESSING 2 3/8IN X 2 3/4IN (Status = Active) USE/APPLY DRESSING(S) TO AFFECTED AREA(S) TWO TIMES PER WEEK OVERBANDAGE FOR PLACEMENT OVER SENSORS Rx# [id number] Last Released: 11/26/24 Qty/Days Supply: Rx Expiration Date: 11/24/25 Refills Remainin Indication: OVERBANDAGE PHARMACY TERMS AND POSSIBLE PATIENT ACTIONS INPT = [place] inpatient order IV = [place] intravenous medication OUTPT = [place] outpatient prescription PHARMACY POSSIBLE PATIENT TERMS EXPLANATION ACTIONS -------- -- ACTIVE A prescription that can be If you have refills, filled at the local [place] pharmacy. you may request a refill of this prescription from your [place] pharmacy. CLINIC A medication you received during If you have questions a visit to a [place] clinic or about this medication emergency department. contact your [place] healthcare team. DISCONTINUED A prescription your provider has Contact your [facility] stopped. It is no longer healthcare team if you available to be sent to you or need more of this picked up at the [place] pharmacy medication. window. A prescription which is [...] the VA. Or, it may be an kozt-lps-stfvdxq (OTC), herbal, dietary supplements or sample medication. [...] voiced an understanding of current medications? Yes /caregiver were provided an updated medication list. Following [...] PB-JANN PACT DELTA PCP /es/ OMAR Gambino [facility] Signed: 01/19/2025 12:49 [facility]MAR BLEVINS [facility]
--- OUTSIDE RECORDS SUMMARY | 2025-01-20 05:20 | XMS_ITS | Continuity of Care Document ---
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 which of the reported eGFR values to use depends on the clinical situation. For example, for patients with severe muscle wasting or reduced muscle mass, eGFR calculated using the 2012 cystatin equation may be preferred. Ordering Provider: THOMAS BLACK Report Released Date/Time: October 23, 2024 02:53 PM Reporting Lab: [facility] [address] [address] Performing Lab: [place] [address] [address] [facility] CYSTATIN C EGFR PANELS (L-PB-M A) CKD-EPI CREAT-CYSC (2020) 91.1 60 11/03 Specimen Type: PLASMA Comment: Choice of which of the reported eGFR values to use depends on the clinical situation. For example, for patients with severe muscle wasting or reduced muscle mass, eGFR calculated using the 2011 cystatin equation may be preferred. Ordering Provider: THOMAS BLACK Report Released Date/Time: October 23, 2024 02:53 PM Reporting Lab: [place] [address] [address] [address] Performing Lab: [id number] [place] [address] CYSTATIN C EGFR PANELS (L-PB-M A) CREATININE [MASS/VOLUM E] IN SERUM OR PLASMA [...] October 23, 2024 02:53 PM Reporting Lab: [facility] [address] [address] Performing Lab: [place] [address] [address] [address] [facility] HGA1C HEMOGLOBIN A1C/HEMOGLO BIN.TOTAL IN BLOOD 11.3 4.0 - 6.0 11/03 H Specimen Type: BLOOD No comment entered. Ordering Provider: THOMAS BLACK Report Released Date/Time: October 23, 2024 02:50 PM Reporting Lab: [place] [facility] [address] [facility] [address] Performing Lab: [place] [facility] [address] [place] [address] [place] [facility] URINE ALBUMIN PROFILE-i h (PB) ALBUMIN [MASS/VOLUM E] IN URINE 62.05 mg/L 11/03 Specimen Type: URINE No comment entered. Ordering Provider: THOMAS BLACK Report Released Date/Time: October 23, 2024 02:50 PM Reporting Lab: [place] [facility] [address] [place] [address] Performing Lab: [place] [facility] [address] [place] [address] [place] [facility] URINE ALBUMIN PROFILE-i h (PB) ALBUMIN/CRE ATININE [MASS RATIO] IN URINE 46.31 mg/g 0 - 30 11/03 H Specimen Type: URINE No comment entered. Ordering Provider: THOMAS BLACK Report Released Date/Time: October 23, 2024 02:50 PM Reporting Lab: [place] [facility] [address] [place] [facility] Performing Lab: [place] [facility] [address] [place] [address] [place] [facility] URINE ALBUMIN PROFILE-i h (PB) CREATININE [MASS/VOLUM E] IN URINE 133.99 mg/dL 11/03 Specimen Type: URINE No comment entered. Ordering Provider: THOMAS BLACK Report Released Date/Time: October 23, 2024 02:50 PM Reporting Lab: [place] [facility] [address] [place] [address] Performing Lab: [place] [facility] [address] [place] [address] [place] [facility] MAGNESIUM MAGNESIUM [MASS/VOLUM E] IN SERUM OR PLASMA 1.69 mg/dL 1.6 - 2.6 11/03 Specimen Type: PLASMA Comment: LDL calculation invalid when Triglycerid e exceeds 250 mg/dl Ordering Provider: THOMAS BLACK Report Released Date/Time: October 23, 2024 02:50 PM Reporting Lab: [place] [facility] [address] [place] [address] Performing Lab: [place] [facility] [address] [place] [address] [place] [facility] COMPREHEN SIVE METABOLIC PANEL CREATININE [MASS/VOLUM E] IN SERUM OR PLASMA 0.75 mg/dL 0.7 - 1.3 11/03 Specimen Type: PLASMA Comment: LDL calculation invalid when Triglycerid e exceeds 250 mg/dl Ordering Provider: THOMAS BLACK Report Released Date/Time: October 23, 2024 02:50 PM Reporting Lab: [place] [facility] [address] [place] [address] Performing Lab: [place] [facility] [address] [place] [address] [place] [facility] COMPREHEN SIVE METABOLIC PANEL UREA NITROGEN [MASS/VOLUM E] IN SERUM OR PLASMA 11 mg/dL 9 - 25 11/03 Specimen Type: PLASMA Comment: LDL calculation invalid when Triglycerid e exceeds 250 mg/dl Ordering Provider: THOMAS BLACK Report Released Date/Time: October 23, 2024 02:50 PM Reporting Lab: [place] [facility] [address] [place] [address] Performing Lab: [place] [facility] [address] [place] [address] [place] [facility] COMPREHEN SIVE METABOLIC PANEL GLUCOSE [MASS/VOLUM E] IN SERUM OR PLASMA 296 mg/dL 72 - 99 11/03 H Specimen Type: PLASMA Comment: LDL calculation invalid when Triglycerid e exceeds 250 mg/dl Ordering Provider: THOMAS BLACK Report Released Date/Time: October 23, 2024 02:50 PM Reporting Lab: [place] [facility] [address] [place] [address] Performing Lab: [place] [facility] [address] [place] [address] [place] [facility] COMPREHEN SIVE METABOLIC PANEL SODIUM [MOLES/VOLU ME] IN SERUM OR PLASMA 139 meq/L 136 - 145 11/03 Specimen Type: PLASMA Comment: LDL calculation invalid when Triglycerid e exceeds 250 mg/dl Ordering Provider: THOMAS BLACK Report Released Date/Time: October 23, 2024 02:50 PM Reporting Lab: [place] [facility] [address] [place] [address] Performing Lab: [place] [facility] [address] [place] [address] [place] [facility] COMPREHEN SIVE METABOLIC PANEL POTASSIUM [MOLES/VOLU ME] IN SERUM OR PLASMA 3.7 meq/L 3.5 - 5 11/03 Specimen Type: PLASMA Comment: LDL calculation invalid when Triglycerid e exceeds 250 mg/dl Ordering Provider: THOMAS BLACK Report Released Date/Time: October 23, 2024 02:50 PM Reporting Lab: [place] [facility] [address] [place] [address] Performing Lab: [place] [facility] [address] [place] [address] [place] [facility] COMPREHEN SIVE METABOLIC PANEL CHLORIDE [MOLES/VOLU ME] IN SERUM OR PLASMA 103 meq/L 98 - 107 11/03 Specimen Type: PLASMA Comment: LDL calculation invalid when Triglycerid e exceeds 250 mg/dl Ordering Provider: THOMAS BLACK Report Released Date/Time: October 23, 2024 02:50 PM Reporting Lab: [place] [facility] [address] [place] [address] Performing Lab: [place] [facility] [address] [place] [address] [place] [facility] COMPREHEN SIVE METABOLIC PANEL CARBON DIOXIDE, TOTAL [MOLES/VOLU ME] IN SERUM OR PLASMA 24 meq/L 22 - 31 11/03 Specimen Type: PLASMA Comment: LDL calculation invalid when Triglycerid e exceeds 250 mg/dl Ordering Provider: THOMAS BLACK Report Released Date/Time: October 23, 2024 02:50 PM Reporting Lab: [place] [facility] [address] [place] [address] Performing Lab: [place] [facility] [address] [place] [address] [place] [facility] COMPREHEN SIVE METABOLIC PANEL CALCIUM [MASS/VOLUM E] IN SERUM OR PLASMA 9.1 mg/dL 8.4 - 10.4 11/03 Specimen Type: PLASMA Comment: LDL calculation invalid when Triglycerid e exceeds 250 mg/dl Ordering Provider: THOMAS BLACK Report Released Date/Time: October 23, 2024 02:50 PM Reporting Lab: [place] [facility] [address] [place] [address] Performing Lab: [place] [facility] [address] [place] [address] [place] [facility] COMPREHEN SIVE METABOLIC PANEL PROTEIN [MASS/VOLUM E] IN SERUM OR PLASMA 7.1 g/dL 6 - 8.6 11/03 Specimen Type: PLASMA Comment: LDL calculation invalid when Triglycerid e exceeds 250 mg/dl Ordering Provider: THOMAS BLACK Report Released Date/Time: October 23, 2024 02:50 PM Reporting Lab: [place] [facility] [address] [place] [address] Performing Lab: [place] [facility] [address] [place] [address] [place] [facility] COMPREHEN SIVE METABOLIC PANEL ALBUMIN [MASS/VOLUM E] IN SERUM OR PLASMA 4.2 g/dL 3.4 - 5 11/03 Specimen Type: PLASMA Comment: LDL calculation invalid when Triglycerid e exceeds 250 mg/dl Ordering Provider: THOMAS BLACK Report Released Date/Time: October 23, 2024 02:50 PM Reporting Lab: [place] [facility] [address] [place] [address] Performing Lab: [place] [facility] [address] [place] [address] [place] [facility] COMPREHEN SIVE METABOLIC PANEL BILIRUBIN.T OTAL [MASS/VOLUM E] IN SERUM OR PLASMA 0.6 mg/dL 0.2 - 1.2 11/03 Specimen Type: PLASMA Comment: LDL calculation invalid when Triglycerid e exceeds 250 mg/dl Ordering Provider: THOMAS BLACK Report Released Date/Time: October 23, 2024 02:50 PM Reporting Lab: [place] [facility] [address] [place] [address] Performing Lab: [place] [facility] [address] [place] [address] [place] [facility] COMPREHEN SIVE METABOLIC PANEL ALKALINE PHOSPHATASE [ENZYMATIC ACTIVITY/VO LUME] IN SERUM OR PLASMA 100 U/L 40 - 150 11/03 Specimen Type: PLASMA Comment: LDL calculation invalid when Triglycerid e exceeds 250 mg/dl Ordering Provider: THOMAS BLACK Report Released Date/Time: October 23, 2024 02:50 PM Reporting Lab: [place] [facility] [address] [place] [address] Performing Lab: [place] [facility] [address] [place] [address] [place] [facility] COMPREHEN SIVE METABOLIC PANEL ASPARTATE AMINOTRANSF ERASE [ENZYMATIC ACTIVITY/VO LUME] IN SERUM OR PLASMA 30 U/L 5 - 34 11/03 Specimen Type: PLASMA Comment: LDL calculation invalid when Triglycerid e exceeds 250 mg/dl Ordering Provider: THOMAS BLACK Report Released Date/Time: October 23, 2024 02:50 PM Reporting Lab: [place] [facility] [address] [place] [address] Performing Lab: [place] [facility] [address] [place] [address] [place] [facility] COMPREHEN SIVE METABOLIC PANEL ALANINE AMINOTRANSF ERASE [ENZYMATIC ACTIVITY/VO LUME] IN SERUM OR PLASMA 41 U/L 8 - 40 11/03 H Specimen Type: PLASMA Comment: LDL calculation invalid when Triglycerid e exceeds 250 mg/dl Ordering Provider: THOMAS BLACK Report Released Date/Time: October 23, 2024 02:50 PM Reporting Lab: [place] [facility] [address] [place] [address] Performing Lab: [place] [facility] [address] [place] [address] [place] [facility] COMPREHEN SIVE METABOLIC PANEL GLOMERULAR FILTRATION RATE/1.73 SQ M.PREDICTED [VOLUME RATE/AREA] IN SERUM, PLASMA OR BLOOD BY CREATININE- BASED FORMULA (CKD-EPI 2020) 113 11/03 Specimen Type: PLASMA Comment: LDL calculation invalid when Triglycerid e exceeds 250 mg/dl Ordering Provider: THOMAS BLACK Report Released Date/Time: October 23, 2024 02:50 PM Reporting Lab: [place] [facility] [address] [place] [address] Performing Lab: [place] [facility] [address] [place] [address] [place] [facility] CHOLESTER OL PANEL (PB) CHOLESTEROL [MASS/VOLUM E] IN SERUM OR PLASMA 185 mg/dL 0 - 200 11/03 Specimen Type: PLASMA Comment: LDL calculation invalid when Triglycerid e exceeds 250 mg/dl Ordering Provider: THOMAS BLACK Report Released Date/Time: October 23, 2024 02:50 PM Reporting Lab: [place] [facility] [address] [place] [address] Performing Lab: [place] [facility] [address] [place] [address] [place] [facility] CHOLESTER OL PANEL (PB) TRIGLYCERID E [MASS/VOLUM E] IN SERUM OR PLASMA 293 mg/dL 0 - 150 11/03 H Specimen Type: PLASMA Comment: LDL calculation invalid when Triglycerid e exceeds 250 mg/dl Ordering Provider: THOMAS BLACK Report Released Date/Time: October 23, 2024 02:50 PM Reporting Lab: [place] [facility] [address] [place] [address] Performing Lab: [place] [facility] [address] [place] [address] [place] [facility] CHOLESTER OL PANEL (PB) CHOLESTEROL IN LDL [MASS/VOLUM E] IN SERUM OR PLASMA BY CALCULATION commen tmg/dL 11/03 Specimen Type: PLASMA Comment: LDL calculation invalid when Triglycerid e exceeds 250 mg/dl Ordering Provider: THOMAS BLACK Report Released Date/Time: October 23, 2024 02:50 PM Reporting Lab: [place] [facility] [address] [place] [address] Performing Lab: [place] [facility] [address] [place] [address] [place] [facility] CHOLESTER OL PANEL (PB) CHOLESTEROL IN HDL [MASS/VOLUM E] IN SERUM OR PLASMA 42.0 mg/dL 40 11/03 H Specimen Type: PLASMA Comment: LDL calculation invalid when Triglycerid e exceeds 250 mg/dl Ordering Provider: THOMAS BLACK Report Released Date/Time: October 23, 2024 02:50 PM Reporting Lab: [place] [facility] [address] [place] [address] Performing Lab: [place] [facility] [address] [place] [address] [place] [facility] CHOLESTER OL PANEL (PB) CHOLESTEROL IN HDL/CHOLEST TING.TOTAL [MASS RATIO] IN SERUM OR PLASMA 22.7 25 11/03 Specimen Type: PLASMA Comment: LDL calculation invalid when Triglycerid e exceeds 250 mg/dl Ordering Provider: THOMAS BLACK Report Released Date/Time: October 23, 2024 02:50 PM Reporting Lab: [place] [facility] [address] [place] [address] Performing Lab: [place] [facility] [address] [place] [address] [place] [facility] CHOLESTER OL PANEL (PB) CHOLESTEROL IN LDL [MASS/VOLUM E] IN SERUM OR PLASMA BY DIRECT ASSAY 119.9 mg/dL 0 - 99.9 11/03 H Specimen Type: PLASMA Comment: LDL calculation invalid when Triglycerid e exceeds 250 mg/dl Ordering Provider: THOMAS BLACK Report Released Date/Time: October 23, 2024 02:50 PM Reporting Lab: [place] [facility] [address] [place] [address] Performing Lab: [place] [facility] [address] [place] [address] [place] [facility] VITAMIN D, 25-HYDROX Y 25-HYDROXYV ITAMIN D3 [MASS/VOLUM E] IN SERUM OR PLASMA 24.4 ng/mL 30 - 96 11/03 L Specimen Type: SERUM No comment entered. Ordering Provider: THOMAS BLACK Report Released Date/Time: October 23, 2024 02:50 PM Reporting Lab: [place] [facility] [address] [place] [address] Performing Lab: [place] [facility] [address] [place] [address] [place] [facility] Vital Signs Combined list of inpatient and outpatient Vital Signs from Department of Defense and Veterans Affairs, ranging from 12 months to all on record, depending upon the facility. Vital Sign Value Date Comments Source SYSTOLIC BLOOD PRESSURE 130 01/12/2025 08:20:00 [place] [facility] DIASTOLIC BLOOD PRESSURE 91 01/12/2025 08:20:00 [place] [facility] TEMPERATURE 98.4 01/12/2025 08:20:00 [place] [facility] PULSE 82 01/12/2025 08[facility]20:[place] [facility] SYSTOLIC BLOOD PRESSURE 119 01/06/2025 14:57:05 [place] [facility] DIASTOLIC BLOOD PRESSURE 83 01/06/2025 14:57:05 [place] [facility] PULSE OXIMETRY 97 % 01/06/2025 14:57:05 [facility] WEIGHT 392.1 01/06/2025 14:57:05 [place] [facility] BMI 56 kg/m2 01/06/2025 14:57:05 [place] [facility] PAIN 5 01/06/2025 14:57:05 [place] [facility] TEMPERATURE 97.6 01/06/2025 14:57:05 [place] [facility] PULSE 88 01/06/2025 14:57:05 [place] [facility] RESPIRATION 20 01/06/2025 14:57:05 [place] [facility] SYSTOLIC BLOOD PRESSURE 128 11/20/2024 08:40:35 [place] [facility] DIASTOLIC BLOOD PRESSURE 89 11/20/2024 08:40:35 [place] [facility] PULSE OXIMETRY 97 % 11/20/2024 08:40:35 [facility] WEIGHT 393.5 11/20/2024 08:40:35 [place] [facility] BMI 57 kg/m2 11/20/2024 08:40:35 [place] [facility] PAIN 5 11/20/2024 08:40:35 [place] [facility] TEMPERATURE 98.4 11/20/2024 08:40:35 [facility] PULSE 82 11/20/2024 08:40:35 [facility] RESPIRATION 20 11/20/2024 08:40:35 [facility] SYSTOLIC BLOOD PRESSURE 105 11/17/2024 09:54:00 [facility] DIASTOLIC BLOOD PRESSURE 71 11/17/2024 09:54:00 [facility] TEMPERATURE 97.9 11/17/2024 09:54:00 [facility] PULSE 112 11/17/2024 09:54:00 [facility] SYSTOLIC BLOOD PRESSURE 128 08/26/2024 15:24:00 [facility]OC DIASTOLIC BLOOD PRESSURE 78 08/26/2024 15:24:00 [facility] TEMPERATURE 98 08/26/2024 15:24:00 [facility] PULSE 68 08/26/2024 15:24:00 [facility] CB Encounters Combined list of: 1) Encounters from Department of [facility] Affairs facilities going backup to the last 18 months, not all [place] inpatient encounters are included; 2) Encounters from the Department of [facility] facilities going backup to 280 months. Location Location Details Encounter Type Encounter Number Reason For Visit Attending Provider ADM Date DC Date Status Disposition Source [facility] Outpatient Encounter [id number] 07/26 [facility] W PT 60 MINUTES [id number] Diagnos is: ICD-10- CM F33.1 Major depress padmini disorde r, recurre nt, moderat e MARCELO,CHR ISSOM J 07/31 [facility] Outpatient Encounter [id number] 08/01 [facility] Outpatient Encounter [id number] Diagnos is: ICD-10- CM E11.65 Type 2 diabete s mellitu s with hypergl ycemia Ashish VALVERDE W 08/07 [facility] Outpatient Encounter [id number] 08/14 [facility] Outpatient Encounter [id number] 08/18 [facility] Outpatient Encounter [id number] 08/20 [facility] Outpatient Encounter [id number] 08/25 [facility] Outpatient Encounter [id number] 08/27 [facility] Outpatient Encounter [id number] Diagnos is: ICD-10- CM E11.65 Type 2 diabete s mellitu s with hypergl ycemia Ashish VALVERDE W 08/29 [facility] QNHP OL DIG ASSMT&MGMT 11-20 [id number] Diagnos is: ICD-10- CM E11.65 Type 2 diabete s mellitu s with hypergl ycemia ZULY LAUGHLIN R 08/29 [facility] Outpatient Encounter 11379-1.65 [id number] 1 09/02 [facility] OFF/OP EST MAY X REQ PHY/QHP 59027-0.65 [id number] Diagnos is: ICD-10- CM M25.552 Pain in left hip Ashish COATES 09/03 [facility] OFFICE O/P EST LOW 20 MIN 70354-3.65 [id number] 975 Diagnos is: ICD-10- CM S76.012 A Strain of muscle, fascia and tendon of left hip, init encntr TRENT MAGAÑA G 09/03 [facility] Outpatient Encounter 33286-3.65 [id number] HILARY DELGADO 09/09 [facility] Outpatient Encounter 11409-6.65 [id number] Diagnos is: ICD-10- CM E11.65 Type 2 diabete s mellitu s with hypergl ycemia Ashish VALVERDE TAYLOR W 09/09 [facility] [place] [facility] QNHP OL DIG ASSMT&MGMT 5-10 23126-3.65 [id number] 121 Diagnos is: ICD-10- CM E11.65 Type 2 diabete s mellitu s with hypergl ycemia JANUARY,SHIREEN V 09/10 [place] [facility] EST LOW 20 MIN 46624-9.65 [id number] 367 Diagnos is: ICD-10- CM F31.9 Bipolar disorde r, unspeci OMAR Magallanes R 09/10 [facility] Outpatient Encounter 69120-3.65 [id number] 1 09/19 [facility] OFFICE O/P EST LOW 20 MIN 01112-3.65 [id number] 671 Diagnos is: ICD-10- CM K21.9 Gastro- esophag eal reflux disease without esophag itis THOMAS BLACK R 09/19 [facility] Outpatient Encounter 58119-2.65 [id number] 3 09/22 [facility] Outpatient Encounter 07369-2.65 [id number].[id number] 09/24 [facility] Outpatient Encounter 24462-7.65 [id number] 09/24 [facility] 56838-1.65 [id number] 906 Diagnos is: ICD-10- CM E11.65 Type 2 diabete s mellitu s with hypergl ycemia Ashish VALVERDE TAYLOR W 09/24 [facility] Outpatient Encounter 92521-0.65 [id number] 09/25 [facility] PSYTX W PT 60 MINUTES 34131-6.65 [id number] 011 Diagnos is: ICD-10- CM F33.1 Major depress padmini disorde r, recurre nt, moderat e KAMALA,SHAWN TRIPP P 09/25 [facility] Outpatient Encounter 59048-5.65 [id number] 09/29 [facility] Outpatient Encounter 54229-6.65 [id number] 616 09/29 [facility] Outpatient Encounter 92981-3.65 [id number] 5 09/30 [facility] Outpatient Encounter 09400-4.65 [id number] 9 10/01 [facility] Outpatient Encounter 18471-0.65 [id number] 8 10/02 [facility] Outpatient Encounter 63168-0.65 [id number] 8 10/08 [facility] Outpatient Encounter 56114-0.65 [id number] 5 10/08 [facility] Outpatient Encounter 74760-6.65 [id number] 5 10/08 [facility] Outpatient Encounter 55051-9.65 [id number] 2 10/13 [facility] OFFICE O/P EST HI 40 MIN 72178-8.65 [id number] 147 Diagnos is: ICD-10- CM F33.1 Major depress padmini disorde r, recurre nt, moderat e THOMAS BLACK 10/24 [facility] Outpatient Encounter 80747-3.65 [id number] 1 10/24 [facility] Outpatient Encounter 64462-5.65 [id number] 1 10/29 [facility] MTMS BY PHARM ADDL 15 MIN 82437-2.65 [id number] Diagnos is: ICD-10- CM E11.65 Type 2 diabete s mellitu s with hypergl ycemia Ashish VALVERDE W 10/31 [facility] Outpatient Encounter 73190-6.65 [id number].[id number] 601 11/06 [facility] Outpatient Encounter 65468-5.65 [id number] 8 11/13 [facility] OFFICE O/P EST MOD 30 MIN 61981-8.65 [id number] 675 Diagnos is: ICD-10- CM F50.81 Binge eating disorde r THOMAS BLACK 11/13 [facility] PRO PHONE CALL 5-10 MIN 09115-1.65 [id number] 593 Diagnos is: ICD-10- CM 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 CAMPBELL GUTIÉRREZA D 11/14 [facility] OFF/OP EST OCTOBER X REQ PHY/QHP 89837-6.65 [id number].[id number] 287 Diagnos is: ICD-10- CM S91.341 A Punctur e wound with foreign body, right foot, init encntr CUSTRED,TO RRI J 11/14 [facility] Outpatient Encounter 03159-1.65 [id number] CASEY,AP RIL L 11/18 [facility] PSYTX W PT 60 MINUTES 96881-4.65 [id number] 014 Diagnos is: ICD-10- CM F33.1 Major depress padmini disorde r, recurre nt, SHAWN Bui P 11/25 [facility] Outpatient Encounter 58539-7.65 [id number] 3 11/26 [facility] Outpatient Encounter 32722-0.65 [id number] 0 12/30 [facility] PSYTX W PT 60 MINUTES 85046-0.65 [id number].[id number] 966 Diagnos is: ICD-10- CM F33.1 Major depress padmini disorde r, recurre nt, SHAWN Bui QASIM P 12/31 [facility] Outpatient Encounter 44351-5.65 [id number] 8 01/12 [facility] Outpatient Encounter 13549-7.65 [id number] 1 HUMZA CUNNINGHAM 01/12 [facility] MTMS BY PHARM ADDL 15 MIN 79441-7.65 [id number].[id number] 830 Diagnos is: ICD-10- CM E11.65 Type 2 diabete s mellitu s with hypergl ycemia Ashish VALVERDE W 01/16 [facility] Outpatient Encounter 66270-5.65 [id number] 7 01/19 [facility] FEE 56937-2.65 [id number].[id number] 805 Diagnos is: ICD-10- CM Z02.89 Encount er for other adminis trative examina tions TAZ DINH 01/22 [facility] Outpatient Encounter 75465-3.65 [id number] 669 Diagnos is: ICD-10- CM Z02.89 Encount er for other adminis trative examina tions TAZ DINH 01/22 [facility] Outpatient Encounter 28387-6.65 [id number] 509 Diagnos is: ICD-10- CM Z02.89 Encount er for other adminis trative examina tions AYAN ARVIZU 02/05 [facility] Outpatient Encounter 65511-9.65 [id number] 02/07 [facility] Outpatient Encounter 11734-5.65 [id number] 0 ROSSANA PEÑA RIL L 02/09 [facility] Outpatient Encounter 32012-9.65 [id number] 9 ROSSANA PEÑA RIL L 02/13 [facility] Outpatient Encounter 37453-7.65 [id number] 1 02/18 [facility] OFF/OP EST OCTOBER X REQ PHY/QHP 45413-6.65 [id number].[id number] 010 Diagnos is: ICD-10- CM H60.501 Unspeci fied acute noninfe ctive otitis externa , right ear LINDEN HOPKINS R 02/23 [facility] PSYTX W PT 60 MINUTES 23156-8.65 [id number] 180 Diagnos is: ICD-10- CM F33.1 Major depress padmini disorde r, recurre nt, moderat e SHAWN WRAY P 03/09 [facility] Outpatient Encounter 65525-0.65 [id number] 2 03/10 [facility] Outpatient Encounter 67831-2.65 [id number] 6 03/11 [facility] Outpatient Encounter 34118-9.65 [id number] 2 ROSSANA PEÑA RIL L 03/17 [facility] [place] [facility] PSYTX W PT 30 MINUTES 54974-7.65 [id number] 215 Diagnos is: ICD-10- CM F10.20 Alcohol depende nce, uncompl icated MARLA TERRELL D 03/17 [place] [facility] OFF/OP EST OCTOBER X REQ PHY/QHP 75447-2.65 [id number].[id number] 829 Diagnos is: ICD-10- CM M25.562 Pain in left knee GUTIÉRREZ,AN NESSA D 03/17 [facility] Outpatient Encounter 37631-3.65 [id number] HILARY DELGADO M 03/20 [facility] [place] [facility] PT EDUCATION NOC GROUP 35806-8.65 [id number] 808 Diagnos is: ICD-10- CM F10.11 Alcohol abuse, in remissi on Lori ZARATE T 03/23 [place] [facility] [place] [facility] Outpatient Encounter 63047-5.65 [id number] 144 MAKI RAI P 03/23 [place] [facility] [place] [facility] GROUP PSYCHOTHER APY 73936-7.65 [id number] 621 Diagnos is: ICD-10- CM F10.94 Alcohol use, unspeci fied with alcohol -induce d mood disorde r MAKI RAI P 03/23 [place] [facility] [place] [facility] Outpatient Encounter 90805-9.65 [id number] MAKI RAI P 03/23 [place] [facility] OFFICE O/P EST LOW 20 MIN 81914-8.65 [id number].[id number] 578 Diagnos is: ICD-10- CM F31.9 Bipolar disorde r, unspeci fied OMAR BLEVINS 03/23 [facility] [place] [facility] GROUP PSYCHOTHER APY 03173-9.65 [id number] 703 Diagnos is: ICD-10- CM F10.11 Alcohol abuse, in remissi on Lori ZARATE T 03/24 [place] [facility] [place] [facility] GROUP PSYCHOTHER APY 93229-9.65 [id number] 485 Diagnos is: ICD-10- CM F10.94 Alcohol use, unspeci fied with alcohol -induce d mood disorde r Lori ZARATE T 03/25 [place] [facility] [place] [facility] SELF-HELP/ PEER SVC PER 15MIN 58590-6.65 [id number] 724 Diagnos is: ICD-10- CM F10.94 Alcohol use, unspeci fied with alcohol -induce d mood disorde r Herbie DILLARD ODD A 03/26 [place] [facility] [place] [facility] GROUP PSYCHOTHER APY 50773-0.65 [id number] 667 Diagnos is: ICD-10- CM F10.94 Alcohol use, unspeci fied with alcohol -induce d mood disorde r MARLA TERRELL D 03/26 [place] [facility] [place] [facility] GROUP PSYCHOTHER APY 96901-2 [id number] 537 Diagnos is: ICD-10- CM F10.94 Alcohol use, unspeci fied with alcohol -induce d mood disorde r Lori ZARATE T 03/27 [place] [facility] [place] [facility] Outpatient Encounter 76231-5 [id number] 03/30 [place] [facility] Outpatient Encounter [id number] [id number] 03/30 [facility] Outpatient Encounter 20172-4 [id number] 5 03/31 [facility] [place] [facility] Outpatient Encounter 39268-5 [id number] 03/31 [place] [facility] Outpatient Encounter 42859-8. [id number] 03/31 [facility] [place] [facility] GROUP PSYCHOTHER APY 50585-8 [id number] Diagnos is: ICD-10- CM F10.94 Alcohol use, unspeci fied with alcohol -induce d mood disorde r DURGA ARREGUIN 03/31 [place] [facility] Outpatient Encounter 16578-7.65 [id number] 5 03/31 [facility] Outpatient Encounter 88221-7 [id number] 2 04/01 [facility] [place] [facility] SELF-HELP/ PEER SVC PER 15MIN 99059-5.65 [id number] 307 Diagnos is: ICD-10- CM F10.94 Alcohol use, unspeci fied with alcohol -induce d mood disorde r NISHANT,Herbie ODD A 04/02 [place] [facility] [place] [facility] Outpatient Encounter 73822-3.65 [id number] MARLA TERRELL D 04/02 [place] [facility] Outpatient Encounter 05422-5.65 [id number] 3 04/03 [facility] Outpatient Encounter 06095-0.65 [id number] 3 ROSSANA PEÑA 04/06 [facility] [place] [facility] Outpatient Encounter 93288-3.65 [id number] 04/06 [place] [facility] [place] [facility] Outpatient Encounter 11407-0.65 [id number] 04/06 [place] [facility] [place] [facility] GROUP PSYCHOTHER APY 40798-2.65 [id number] 911 Diagnos is: ICD-10- CM F10.94 Alcohol use, unspeci fied with alcohol -induce d mood disorde r MARLA TERRELL D 04/07 [place] [facility] [place] [facility] PSYTX W PT 30 MINUTES 88033-5.65 [id number] 125 Diagnos is: ICD-10- CM F10.94 Alcohol use, unspeci fied with alcohol -induce d mood disorde r MARLA TERRELL D 04/10 [place] [facility] [place] [facility] Outpatient Encounter 67614-9.65 [id number] 04/17 [place] [facility] Outpatient Encounter 06349-0.65 [id number] 04/21 [facility] [place] [facility] Outpatient Encounter 14600-3.65 [id number] 600 04/22 [place] [facility] Outpatient Encounter 18012-8.65 [id number] 04/22 [facility] Outpatient Encounter 63482-0.65 [id number] 04/24 [facility] Outpatient Encounter 15978-3.65 [id number] 05/04 [facility] PSYTX W PT 60 MINUTES 39339-2.65 [id number].[id number] 589 Diagnos is: ICD-10- CM F33.1 Major depress padmini disorde r, recurre nt, moderat e SHAWN WRAY P 05/05 [facility] OFF/OP EST OCTOBER X REQ PHY/QHP 27743-9.65 [id number] 117 Diagnos is: ICD-10- CM M25.562 Pain in left knee CUSTRED,TO RRI J 05/05 [facility] Outpatient Encounter 52172-3.65 [id number] 05/07 [facility] MTMS BY PHARM ADDL 15 MIN 13328-0.65 [id number] Diagnos is: ICD-10- CM E11.65 Type 2 diabete s mellitu s with hypergl ycemia Ashish VALVERDE TAYLOR W 05/12 [facility] QNHP OL DIG ASSMT&MGMT 5-10 63789-6.65 [id number] 037 Diagnos is: ICD-10- CM E11.65 Type 2 diabete s mellitu s with hypergl ycemia JANUARY,SHIREEN V 05/13 [facility] Outpatient Encounter 89737-1.65 [id number] 05/13 [facility] Outpatient Encounter 70769-6.65 [id number] 9 05/18 [facility] Outpatient Encounter 96137-5.65 [id number] HUMZA REAMaggi COURTNEY 05/22 [facility] MTMS BY PHARM ADDL 15 MIN 85894-4.65 [id number] Diagnos is: ICD-10- CM E11.65 Type 2 diabete s mellitu s with hypergl ycemia Ashish VALVERDE W 05/28 [facility] Outpatient Encounter 50478-6.65 [id number] DIVZAID JAMESON 06/05 [place] [facility] 15 MIN 44112-4.65 [id number] 062 Diagnos is: ICD-10- CM E11.65 Type 2 diabete s mellitu s with hypergl ycemia Ashish VALVERDE W 06/23 [facility] OFFICE O/P EST LOW 20 MIN 61266-8.65 [id number].[id number] 419 Diagnos is: ICD-10- CM F31.76 Bipolar disorde r, in full remis, most recent episode depress OMRA BLEVINS 06/23 [facility] Outpatient Encounter 62571-4.65 [id number] 06/25 [facility] Outpatient Encounter 78549-7.65 [id number] 2 06/25 [facility] Outpatient Encounter 21410-3.65 [id number] 06/30 [facility] 15 MIN 54691-7.65 [id number] 158 Diagnos is: ICD-10- CM E11.65 Type 2 diabete s mellitu s with hypergl ycemia Ashish VALVERDE TAYLOR W 06/30 [facility] PSYTX W PT 60 MINUTES 08410-0.65 [id number] 518 Diagnos is: ICD-10- CM F33.1 Major depress padmini disorde r, recurre nt, SHAWN Bui P 06/30 [facility] Outpatient Encounter 61245-7.65 [id number] 06/30 [facility] En[facility] 04318-9.65 [id number] 3 07/01 [facility] Encounter 29841-0.65 [id number] 2 07/09 [facility] Outpatient Encounter 66521-3.65 [id number] 07/14 [facility] Outpatient Encounter 68297-1.65 [id number] 5 07/16 [facility] PSYTX W PT 60 MINUTES 77285-2.65 [id number] 532 Diagnos is: ICD-10- CM F33.1 Major depress padmini disorde r, recurre nt, SHAWN Bui QASIM P 07/28 [facility] Outpatient Encounter 31452-6.65 [id number] 5 CUSTRED,TO RRI J 08/05 [facility] Outpatient Encounter 06681-7.65 [id number] 7 08/06 [facility] PSYTX W PT 60 MINUTES 10261-8.65 [id number] 086 Diagnos is: ICD-10- CM F33.1 Major depress padmini disorde r, recurre nt, moderat e WRAY,SHAWN TRIPP P 08/17 [facility]AC[facility] FEE 95642-4.65 [id number] 435 Diagnos is: ICD-10- CM M54.2 Cervica THOMAS Jaime R 08/19 [facility] SYNCH AUDIO-VIDE O EST LOW 20 74776-8.65 [id number] 285 Diagnos is: ICD-10- CM M54.2 Cervica THOMAS Jaime R 08/19 [facility] Outpatient Encounter 63929-1.65 [id number] 5 08/24 [facility] OFF/OP EST MAY X REQ PHY/QHP 82796-3.65 [id number] 580 Diagnos is: ICD-10- CM R21 Rash and other nonspec ific skin eruptio n CUSTRED,TO RRI J 08/26 [facility] Outpatient Encounter 57246-8.65 [id number] 8 08/27 [facility] Outpatient Encounter 47235-4.65 [id number] 4 09/01 [facility] Outpatient Encounter 48791-8.65 [id number] 7 09/02 [facility] Outpatient Encounter 23978-8.65 [id number] 5 09/06 [facility] Outpatient Encounter 18691-1.65 [id number] 3 ROSSANA PEÑA MINDA Aragon 09/07 [facility] Outpatient Encounter 38549-9.65 [id number] 6 09/10 [facility] Outpatient Encounter 14255-6.65 [id number] 9 09/16 [facility] Outpatient Encounter 24777-3.65 [id number] 9 HILARY DELGADO M 09/17 [facility] Outpatient Encounter 93155-6.65 [id number] 09/18 [facility] 92505-7.65 [id number] 6 09/18 [facility] Outpatient Encounter 84374-6.65 [id number] 09/21 [facility] OFFICE O/P NEW LOW 30 MIN 36270-2.65 [id number].[id number] 361 Diagnos is: ICD-10- CM M54.2 Cervica ANDRE Perales 09/21 [facility] Outpatient Encounter 58083-8.65 [id number] 6 09/21 [facility] Outpatient Encounter 14825-3.65 [id number] 6 09/23 [facility] OFFICE O/P EST MOD 30 MIN 21574-0.65 [id number] Diagnos is: ICD-10- CM F31.76 Bipolar disorde r, in full remis, most recent episode depress OMAR BLEVINS 09/24 [facility] Outpatient Encounter 43103-4.65 [id number] 2 09/25 [facility] Encounter 97063-2.65 [id number] 492 09/28 [facility] Outpatient Encounter 02942-3.65 [id number] 7 09/29 [facility] Outpatient Encounter 88847-1.65 [id number] 5 10/02 [facility] CHIROPRACT MANJ XTRSPINL / 08401-9.65 [id number] 052 Diagnos is: ICD-10- CM M54.59 Other low back pain ANDRE MARTE 10/09 [facility] Outpatient Encounter 05913-5.65 [id number] 3 10/09 [facility] SYNCH AUDIO-ONLY EST SF 10 29482-1.65 [id number].[id number] 942 Diagnos is: ICD-10- CM E66.01 Morbid (severe ) obesity due to excess calorie s THOMAS BLACK R 10/09 [facility] Outpatient Encounter 93754-3.65 [id number] 2 10/12 [facility] Outpatient Encounter 27827-4.65 [id number] 8 WALT WHITE R 10/12 [facility] Outpatient Encounter 35365-2.65 [id number] 5 10/13 [facility] Outpatient Encounter 48367-6.65 [id number] 9 10/16 [facility] Outpatient Encounter 15671-6.65 [id number] 3 10/16 [facility] Outpatient Encounter 29371-6.65 [id number].[id number] 10/27 [facility] Outpatient Encounter 97382-6.65 [id number].[id number] 868 10/27 [facility] Outpatient Encounter 92641-1.65 [id number] 5 11/03 [facility] MANJ XTRSPINL 1/ [id number] [id number] Diagnos is: ICD-10- CM M54.59 Other low back pain ANDRE MARTE 11/06 [facility] Outpatient Encounter [id number] 11/11 [facility] OFF/OP EST OCTOBER X REQ PHY/QHP [id number] Diagnos is: ICD-10- CM R60.9 Edema, unspeci fied CUSTRED,TO RRI J 11/17 [facility] OFFICE O/P EST HI 40 MIN [id number] Diagnos is: ICD-10- CM Z00.01 Encount er for general adult medical exam w karolyna l rachael s THOMAS BLACK 11/20 [facility] Outpatient Encounter [id number] HUGH VALENTIN 11/23 [facility] PHARM ADDL 15 MIN [id number] Diagnos is: ICD-10- CM E11.65 Type 2 diabete s mellitu s with hypergl ycemia IRVING KIRKPATRICK 11/23 [facility] [facility] [place] MTMS BY PHARM HORSE BREAKER 15 MIN [id number] [id number] Diagnos is: ICD-10- CM E11.65 Type 2 diabete s mellitu s with hypergl ycemia JANUARY,SHIREEN V 11/24 [place] [facility] Outpatient Encounter [id number] 11/25 [facility] CHIROPRACT MANJ XTRSPINL 1/ [id number] [id number] Diagnos is: ICD-10- CM M54.59 Other low back pain ANDRE MARTE 11/27 [facility] Outpatient Encounter [id number] 12/01 [facility] En[facility] [id number] [id number] 12/08 [place] [facility] [place] [facility] PH1 ASSMT&MGMT NQHP 5-10 [id number] [id number] Diagnos is: ICD-10- CM 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 VU Braun 12/08 [place] [facility] G[facility] MTMS BY PHARM EST 15 MIN [id number] [id number] Diagnos is: ICD-10- CM E11.65 Type 2 diabete s mellitu s with hypergl ycemia IRVING KIRKPATRICK Jaime 12/14 [place] [facility] Outpatient Encounter [id number] ROSSANA PEÑA L 12/28 [facility] Outpatient Encounter [id number] [id number] SANDY MCELROY Mahesh 12/29 [facility] N [facility] Outpatient Encounter [id number] [id number] 01/04 [facility] MTMS BY PHARM ADDL 15 MIN [id number] [id number] Diagnos is: ICD-10- CM E11.65 Type 2 diabete s mellitu s with hypergl ycemia IRVING KIRKPATRICK 01/05 [facility] YAZMIN MIN [facility] Outpatient Encounter [id number] [id number] 01/06 [facility] Outpatient Encounter [id number] [id number] 01/06 [facility] FEE [id number] [id number] Diagnos is: ICD-10- CM M54.50 Low back pain, unspeci fied THOMAS BLACK R 01/06 [facility] OFFICE O/P EST LOW 20 [place] [id number] Diagnos is: ICD-10- CM M54.50 Low back pain, unspeci fied THOMAS BLACK R 01/06 [facility] OFFICE O/P EST SF 10 MIN [id number] Diagnos is: ICD-10- CM M99.01 Segment al and somatic dysfunc tion of cervica l region NARCISA VARELA 01/12 [facility] Outpatient Encounter [id number] HILARY DELGADO 01/18 [facility] SYNCH AUDIO-VIDE O EST MOD 30 [id number] Diagnos is: ICD-10- CM F43.10 Post-tr aumatic stress disorde r, unspeci fiOMAR Wen 01/19 [facility] Social History Combined list of available smoking, tobacco, and other social history from Department of Defense and Veterans Affairs facilities. Social History Type Response Date Comment Sourc e Tobacco smoking status NHIS VA-TOBACCO SCREEN FOLLOW-UP 11/20/2024 [facility] History of tobacco use VA-TOBACCO USE ADVICE 11/20/2024 [facility] History of tobacco use VA-TOBACCO USE SOME DAYS CIGARETTES 09/17/2024 [facility] History of tobacco use VA-TOBACCO USER EVERY DAY 09/10/2023 [facility] History of tobacco use VA-TOBACCO FORMER USER 09/19/2022 [facility] History of tobacco use VA-TOBACCO USER EVERY DAY 03/20/2021 [facility] History of tobacco use VA-TOBACCO FORMER USER 03/07/2020 [facility] History of tobacco use QUIT TOBACCO >12 MO and <7 YRS AGO 03/11/2018 [facility] History of tobacco use QUIT TOBACCO >7 YEARS AGO 08/12/2015 [facility] History of tobacco use QUIT TOBACCO >12 MO and <7 YRS AGO 04/15/2014 [facility] History of tobacco use QUIT TOBACCO >12 MO and <7 YRS AGO 01/28/2013 [facility] Plan of Care List of future care activities from Department of [facility] Affairs facilities. Additional future care activities may be listed in the Assessment and Plan section. Date/Time Care Activity Care Activity Detail Facili ty 01/20/2025 AMBULATORY - MEDICINE AMBULATORY - MEDICI NE [facility]
[2025-01-20 10:25] VITALS: BP 133/93; PULSE 79; RESP 16; TEMP 36.6; O2SAT 99
--- NOTE | 2025-01-20 10:30 | USCV_ITS ---
Ina Tyree Age: 44 Gender: M : 1980 Exam Date: 01/20/2025 11:55 Ordering Phys: Nancy Vance MD Technologist: WILLA Exam Location: [facility] Indication: bilateral leg pain HISTORY: Lower extremity pain. PROCEDURES: Venous duplex imaging was performed in bilateral lower extremities. The following venous structures were evaluated: common femoral vein, profunda vein, proximal portion of the greater saphenous vein, superficial femoral vein, and the popliteal vein. In addition, the posterior tibial and peroneal trunk were evaluated. FINDINGS: Examination was technically limited due to body habitus. Normal 2-D Doppler and augmentation and compressibility throughout the lower extremity venous structures. Additional imaging through the proximal calf veins also reveals no thrombus. Limited evaluation of the greater saphenous vein is patent with no thrombus. CONCLUSIONS No DVT bilateral lower extremities. Dr. Ilene Chopra DO (Electronically Signed) Final Date: 20 January 2025 13:53 S
--- OUTSIDE RECORDS SUMMARY | 2025-01-20 10:32 | XMS_ITS | Patient Health Record ---
Author Organization [facility] Address [address] [place] [address] Support Name Relationship Address Phone Tyree Buckley Guarantor Unknown Reason For Referral No Information Plan Of Treatment Next Appt Details Provider Name:Venus Jack, 02/02/2025 09:40:00 AM, [address] [place], [address],
--- OUTSIDE RECORDS SUMMARY | 2025-01-20 10:33 | XMS_ITS | Clinical Summary ---
Author Organization [facility] Address [address] [facility] Attn: Epic Prelude ADT ROSALIND ALEXANDRA [address] Care Team Providers Care Field Pipelines Supervisor Name Role Phone Unavailable Primary Care Provider [...] daily. 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 EST. AVG GLUCOSE, A1C 186 mg/dL 09/28/2019 8:05 AM CDT [facility] Blood Venipuncture / Unknown 09/26/2019 2:17 AM CDT 09/26/2019 2:24 AM CDT Narrative [facility] - 09/28/2019 8:05 AM CDT HGB A1C INTERPRETATION NORMAL: <5.7% PRE-DIABETES: 5.7 - 6.4% DIABETES: 6.5% OR GREATER Cosmo Olivarez MD CHEMISTRY ORDERABLES Final R esult Performing Organization Address City/State/[facility] Co de Phone Number [facility] CLIA# [id number] [address] [place] [address] [facility] CLIA# [id number] [address] [place] [address] from Last 3 Months or Most Recently Relevant to Health Maintenance Insurance MEDICAID [place] Advance Directives For more information, please contact: [phone] * Full Code (Latest Code Status on File) Date Activated Date Inactivated Comments 10/15/2023 9:22 AM 10/15/2023 1:49 PM
--- NOTE | 2025-01-20 14:00 | W.ED.EXTPRO ---
HPI - Extremity Problem General: Chief complaint: Extremity Injury, Lower Stated complaint: pain in both calves Time Seen by Provider: 01/20/25 13:06 History of Present Illness: Patient has 2 days of increasing pain to bilateral calves. He has not had any trauma/injury. 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 Denied increased swelling, fever, chills, muscle aches other places. He has tried massage to these lower extremities without success. This is worse with walking. Patient is chronically lower extremity mild edema. No change in this. The only changes the pain. Associated symptoms: Deny chest pain, fever(s) or rash Related Data Home Medications ?Medication ?Instructions ?Recorded ?Confirmed digoxin 125 mcg (0.125 mg) tablet 125 mcg PO QAM 09/21/19 12/29/24 aspirin 81 mg tablet,delayed 81 mg PO QAM 08/02/20 12/29/24 release cholecalciferol (vitamin D3) 25 25 mcg PO QAM 09/26/21 12/29/24 mcg (1,000 unit) tablet (Vitamin D3) amlodipine 10 mg tablet 10 mg PO DAILY 06/25/22 12/29/24 empagliflozin 25 mg tablet 25 mg PO QAM 06/25/22 12/29/24 (Jardiance) lisinopril 40 mg tablet 80 mg PO QAM 06/25/22 12/29/24 blood-glucose sensor 02/19/24 12/29/24 diclofenac sodium 1 % topical gel 2 g topical ONCE PRN Pain 02/19/24 12/29/24 (Arthritis Pain (diclofenac)) lamotrigine 200 mg tablet 100 mg PO DAILY 02/19/24 12/29/24 omeprazole 40 mg capsule,delayed 40 mg PO QAM 02/19/24 12/29/24 release rosuvastatin 40 mg tablet 40 mg PO DAILY 02/19/24 12/29/24 calcium carbonate 260 mg PO BID 12/28/24 12/29/24 ergocalciferol (vitamin D2) 1,250 1,250 mcg PO Q7D 12/28/24 12/29/24 mcg (50,000 unit) capsule (Vitamin D2) hydrocortisone 1 % topical cream 1 applic topical TID PRN 12/28/24 12/29/24 seborrheic dermatitis insulin glargine 100 unit/mL (3 85 unit SUBCUT BID 12/28/24 12/29/24 mL) subcutaneous pen (Lantus Solostar U-100 Insulin) ketoconazole 2 % shampoo 1 applic topical DAILY PRN 12/28/24 12/29/24 seborrheic dermatitis ketoconazole 2 % topical cream 1 applic topical BID seborrheic 12/28/24 12/29/24 dermatitis metformin 500 mg tablet 1,000 mg PO BIDWMEAL 12/28/24 12/29/24 naltrexone 50 mg tablet 50 mg PO DAILY 12/28/24 12/29/24 tirzepatide 2.5 mg/0.5 mL 2.5 mg SUBCUT Q7D 12/28/24 12/29/24 subcutaneous pen injector Previous Rx's ?Medication ?Instructions ?Recorded High Top Velcro Tennis Shoes #1 ea 06/18/22 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 #1 ea 11/14/23 PIP extension splint #1 ea 02/18/24 tizanidine 4 mg tablet 4 mg PO Q6H PRN muscle spasticity 12/28/24 #20 tabs Diabetic shoes #1 ea 12/29/24 urea 40 % topical cream 1 applic topical DAILY #28 grams 12/29/24 clopidogrel 75 mg tablet 75 mg PO DAILY #30 tabs 01/20/25 Allergies Allergy/AdvReac Type Severity Reaction Status Date / Time fentanyl Allergy ADR-Itching Verified 12/29/24 06:36 morphine AdvReac ADR-Confusi Verified 12/29/24 06:36 on Review of Systems General: Reports: 10 or more systems reviewed and unremarkable except in HPI and below Const: Denies: fever(s) or chills Eyes: Denies: change in vision or blurry vision ENMT: Denies: throat pain or mouth pain Card: Denies: chest pain or palpitations Resp: Denies: dyspnea or non-productive cough GI: Denies: abdominal pain, nausea or vomiting : Denies: flank pain or difficulty urinating Musc: Reports: extremity pain, extremity swelling and muscle cramps; Denies: neck pain, back pain, joint pain, joint swelling, joint redness, joint warmth, joint stiffness or limited range of motion Skin/Breast: Denies: rash or pruritus Neuro: Denies: headache(s) or numbness in extremities Psych: Denies: anxiety or depression PFS ED PFS: Medical History (Updated 01/20/25 @ 14:21 by BILLIE Trejo) Psychiatric care Morbid obesity Diabetic peripheral neuropathy associated with type 2 diabetes mellitus Hx MRSA infection DM type 2 (diabetes mellitus, type 2) Obstructive sleep apnea Morbid obesity Benign essential HTN Supraventricular tachycardia Alcohol use disorder, severe, in early remission Bipolar disorder, in partial remission, most recent episode manic Chronic post-traumatic stress disorder (PTSD) Binge eating disorder Tinea cruris Nephropathy Nephrolithiasis GERD (gastroesophageal reflux disease) Surgical History History of esophagogastroduodenoscopy (EGD) 6-7 yrs ago at [facility] Hx of colonoscopy [facility] History of ankle surgery S/P cholecystectomy S/P knee surgery S/P adenoidectomy S/P vasectomy S/P hernia repair H/O oral surgery S/P tendon repair S/P myringotomy with insertion of tube Family History Other Adopted Social History Smoking and tobacco/nicotine status: current some day tobacco/nicotine user e-cigarettes E-Cigarette Details: vaporizer device and without nicotine Alcohol intake: former Year of sobriety/quit date alcohol: 11mo Substance/Drug Use: current Other substance/drug use details: CBD Adopted: Yes Caregiver/support person: No Lives independently: Yes Household members: spouse Housing: Apartment Marital status: Number of children: 2 Highest education level completed: Some College, No Degree service: Yes status: Medically Discharged/Retired branch: [employer] Current occupational status: disabled Pets and animals: Yes Pets & animals: dog(s) Leisure activites: games Sexually active: Yes Do you think of yourself as: Straight/Heterosexual Current gender identity: Male Leda/Adventism: None Special leda needs: No Agree to transfusion: Yes Physical Exam Const: COMMON NORMALS: no acute distress, average body habitus and patient oriented x3 GENERAL APPEARANCE: cooperative, comfortable, well kempt and well developed ORIENTATION/CONSCIOUSNESS: Yes awake HENMT: COMMON NORMALS: normocephalic and atraumatic HEAD & SCALP: normocephalic and atraumatic Eye: COMMON NORMALS: Equal, round and reactive pupils present and EOMs intact bilaterally PUPIL: Yes Equal, round and reactive pupils present Neck/C-Spine: COMMON NORMALS: full ROM, no lymphadenopathy, supple and no meningeal signs Lymph: LYMPHATIC: no lymphadenopathy noted Chest: COMMONS NORMALS: normal inspection of the chest and normal palpation of entire chest wall Resp: COMMON NORMALS: normal respiratory effort, No retractions and clear to auscultation bilaterally AUSCULTATION: clear to auscultation bilaterally GI: COMMON NORMALS: Normal to inspection, nondistended, normoactive bowel sounds present and Soft to palpation PALPATION: Yes Soft to palpation : COMMON NORMALS: Yes no CVA tenderness BLADDER/KIDNEY EXAM: Yes no CVA tenderness Back/Pelvis: COMMON NORMALS: no CVA tenderness Extremity: COMMON NORMALS: full ROM NARRATIVE EXTREMITY EXAM: Bilateral lower extremity distal extremity with pedis tenia bilateral without sores. Pedal pulse +1, posterior tibialis minimally present at a half on the left. Neuro: COMMON NORMALS: patient oriented x3 MENINGEAL SIGNS: Yes no meningeal signs Psych: APPEARANCE: Yes well kempt Skin: COMMON NORMALS: no rashes or lesions noted, no wounds and turgor normal GENERAL SKIN EXAM: no rashes or lesions noted and turgor normal Course Vital Signs: Vital signs: Vital Signs Temperature 97.8 F 01/20/25 10:25 Pulse Rate 91 01/20/25 14:30 Respiratory Rate 18 01/20/25 14:30 Blood Pressure 148/76 01/20/25 14:30 Pulse Oximetry 95 01/20/25 14:30 Oxygen Delivery Me thod Room Air 01/20/25 10:25 MDM - Extremity (Nontraumatic) Medical Decision Making Patient is a 44-year-old diabetic, obese, hypertensive, nicotine user, with negative ultrasound for DVT. Pain has been the last 2 days. Suspect this is similar to claudication symptoms. Posterior tibialis is difficult to find. I do suspect component of peripheral arterial disease but does have facet claudication. Given these changes, I would pretreat with clopidogrel, and plan on follow-up outpatient with primary care physician as soon as possible for possible DEMI, and arterial duplex. Discussed with patient. He has a follow-up tomorrow, and can arrange his arterial duplex and DEMI through the NH. Since this is not an emergency issue, this would be better that it was managed on outpatient basis. As well, patient can give feedback regarding his clopidogrel use in the interim. I have given him a hard prescription so he could fill this at the NH. All radiology interpretation(s) finalized by discharge Discharge Plan Discharge Patient Disposition: Home Clinical Impression: Claudication of both lower extremities Condition: Stable Prescriptions: New clopidogrel 75 mg tablet 75 mg PO DAILY Qty: 30 0RF No Action digoxin 125 mcg (0.125 mg) tablet 125 mcg PO QAM amlodipine 10 mg tablet 10 mg PO DAILY Jardiance 25 mg tablet 25 mg PO QAM diclofenac sodium [Arthritis Pain (diclofenac)] 1 % gel 2 g topical ONCE PRN (Reason: Pain) Rx Instructions: apply to single elbow, wrist or hand; for hand includes palm/fingers/back of hand rosuvastatin 40 mg tablet 40 mg PO DAILY lamotrigine 200 mg tablet 100 mg PO DAILY omeprazole 40 mg capsule,delayed release(DR/EC) 40 mg PO QAM (DME) blood-glucose sensor Device See Rx Instructions .Route Rx Instructions: As directed (DME) PIP extension splint See Rx Instructions .Route .MEDSUPPLY Qty: 1 0RF Rx Instructions: As directed (DME) Diabetic shoes See Rx Instructions .Route .MEDSUPPLY Qty: 1 0RF Rx Instructions: with one pair of custom molded inserts As directed by the shoe roxanna urea 40 % cream 1 applic topical DAILY Qty: 28 1RF (DME) Diabetic High Top Velcro Tennis Shoes with Custom Molded Orthotics See Rx Instructions .Route .MEDSUPPLY Qty: 1 0RF Rx Instructions: As directed HOME (DME) 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 See Rx Instructions .Route .MEDSUPPLY Qty: 1 0RF Rx Instructions: As directed lisinopril 40 mg tablet 80 mg PO QAM aspirin 81 mg Tablet,Delayed Release (Dr/Ec) 81 mg PO QAM cholecalciferol (vitamin D3) [Vitamin D3] 25 mcg (1,000 unit) Tablet 25 mcg PO QAM metformin 500 mg Tablet 1,000 mg PO BIDWMEAL ketoconazole 2 % Shampoo 1 applic TOPICAL DAILY PRN (Reason: seborrheic dermatitis) hydrocortisone 1 % Cream 1 applic TOPICAL TID PRN (Reason: seborrheic dermatitis) ketoconazole 2 % Cream 1 applic TOPICAL BID calcium carbonate 260 mg calcium (648 mg) Tablet 260 mg PO BID tirzepatide 2.5 mg/0.5 mL Pen Injector 2.5 mg SUBCUT Q7D ergocalciferol (vitamin D2) [Vitamin D2] 1,250 mcg (50,000 unit) Capsule 1,250 mcg PO Q7D tizanidine 4 mg tablet 4 mg PO Q6H PRN (Reason: muscle spasticity) Qty: 20 0RF Rx Instructions: do not exceed 3 doses per 24 hrs naltrexone 50 mg Tablet 50 mg PO DAILY insulin glargine [Lantus Solostar U-100 Insulin] 100 unit/mL (3 mL) insulin pen 85 unit SUBCUT BID Rx Instructions: Inject 78 units twice a day. Discharge Orders: Discharge ED (Routine); Ordered 01/20/25 Ordered By: Dianna Gilmore Referrals: Manda Raza MD [Primary Care Provider, [facility]] Discharge Diet: Diabetic Discharge Activity: Resume usual activity Patient Instructions: Peripheral Artery Disease (ED), Patient Portal & James Instructions Activity Restrictions/Additional Instructions: [facility] for appointment follow-up. As we discussed, you will need an arterial ultrasound and possibly an DEMI. This is to assess your lower extremities for arterial flow. You have been placed on clopidogrel in the interim of your follow-up to both give your physician feedback, and treatment for peripheral arterial disease. As we discussed, caution on nicotine intake. Limit any cigarette smoking/vaping. Patches would be best, however lozenges would be appropriate. Return to ED if you have ulcers developing or call your physician immediately, fever, chills, fever greater than 100.4 ?F. Print Language: Cymro Coding Level of Care Code ED Technology Project Manager for Christin Chang
[2025-01-20 14:30] VITALS: BP 148/76; PULSE 91; RESP 18; O2SAT 95
== END 2025-01-20 14:31 | disposition home or self-care (01) ==
PROVIDERS: Emergency Provider Physician Assistant; PCP Family Medicine
DX: I73.9 Peripheral vascular disease, unspecified (principal); Z79.82 Long term (current) use of aspirin; Z79.84 Long term (current) use of oral hypoglycemic drugs; Z79.4 Long term (current) use of insulin; F17.290 Nicotine dependence, other tobacco product, uncomplicated; E11.42 Type 2 diabetes mellitus with diabetic polyneuropathy; I10 Essential (primary) hypertension
CPT/HCPCS: 93970; 99284

== ENCOUNTER 2025-01-25 13:16 | Emergency (ER) | payer OTHER, SELFPAY ==
[2024-09-15 12:35] VITALS: BP 201/110; BMI 56.7
--- OUTSIDE RECORDS SUMMARY | 2025-01-19 06:00 | XMS_ITS | Encounter Summary ---
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 TAB (Status = Discontinued) TAKE ONE TABLET BY MOUTH ONCE A DAY FOR HIGH BLOOD PRESSURE Rx# [id number] Last Released: 06/30/24 Qty/Days Supply: Rx Expiration Date: 10/25/24 Refills Remainin Indication: FOR HIGH BLOOD PRESSURE OUTPT AMLODIPINE BESYLATE 10MG TAB (Status = Active) TAKE ONE TABLET BY MOUTH ONCE A DAY FOR HIGH BLOOD PRESSURE Rx# [id number] Last Released: 11/09/24 Qty/Days Supply: 90/90 Rx Expiration Date: 11/07/25 Refills Remainin Indication: FOR HIGH BLOOD PRESSURE OUTPT ASPIRIN 81MG EC TAB (Status = Discontinued) TAKE ONE TABLET BY MOUTH ONCE A DAY FOR CARDIOVASCULAR DISEASE TAKE WITH FOOD. Rx# [id number] Last Released: 07/04/24 Qty/Days Supply: 120/90 Rx Expiration Date: 10/25/24 Refills Remainin Indication: FOR CARDIOVASCULAR DISEASE OUTPT ASPIRIN 81MG EC TAB (Status = Active) TAKE ONE TABLET BY MOUTH ONCE A DAY FOR CARDIOVASCULAR DISEASE TAKE WITH FOOD. Rx# [id number] Last Released: 11/11/24 Qty/Days Supply: 120/90 Rx Expiration Date: 11/07/25 Refills Remainin Indication: FOR CARDIOVASCULAR DISEASE OUTPT CALCIUM CARBONATE 650MG (CA 260MG) TAB (Status = Active) TAKE ONE TABLET BY MOUTH TWICE A DAY FOR CALCIUM SUPPLEMENTATION Rx# [id number] Last Released: 11/25/24 Qty/Days Supply: 180/90 Rx Expiration Date: 11/24/25 Refills Remainin Indication: FOR CALCIUM SUPPLEMENTATION OUTPT DICLOFENAC NA 1% TOP GEL (Status = Active) APPLY 2 GM TO AFFECTED AREA(S) THREE TIMES A DAY NEEDED FOR PAIN DO NOT EXCEED MORE THAN 16 GRAMS DAILY TO ANY LOWER EXTREMITY JOINT. NOT MORE THAN 8 GRAMS DAILY TO ANY UPPER EXTREMITY JOINT. MAX 32GM/DAY OVER ALL JOINTS. (MEASURE DOSE WITH RULER ATTACHED INSIDE BOX) Rx# [id number] Last Released: 11/04/24 Qty/Days Supply: 100/30 Rx Expiration Date: 02/04/25 Refills Remainin Indication: FOR PAIN OUTPT DIGOXIN 125MCG TAB (Status = Discontinued) TAKE ONE TABLET BY MOUTH ONCE A DAY FOR HEART ARRHYTHMIAS Rx# [id number] Last Released: 07/04/24 Qty/Days Supply: 90/90 Rx Expiration Date: 10/25/24 Refills Remainin Indication: FOR HEART ARRHYTHMIAS OUTPT DIGOXIN 125MCG TAB (Status = Active) TAKE ONE TABLET BY MOUTH ONCE A DAY FOR HEART ARRHYTHMIAS Rx# [id number] Last Released: 11/10/24 Qty/Days Supply: Rx Expiration Date: 11/07/25 Refills Remainin Indication: FOR HEART ARRHYTHMIAS OUTPT EMPAGLIFLOZIN 25MG TAB (Status = ) TAKE ONE TABLET BY MOUTH ONCE A DAY FOR DIABETES Rx# [id number] Last Released: 11/04/24 Qty/Days Supply: Rx Expiration Date: 01/17/25 Refills Remainin Indication: FOR DIABETES OUTPT ERGOCALCIF 1,250MCG (D2-50,000UNIT) CAP (Status = Active) TAKE ONE CAPSULE BY MOUTH EVERY WEEK FOR VITAMIN D DEFICIENCY Rx# [id number] Last Released: 11/24/24 Qty/Days Supply: Rx Expiration Date: 02/18/25 Refills Remainin Indication: FOR VITAMIN D DEFICIENCY Non-VA FISH OIL 1000MG ORAL CAP TAKE 2 CAPSULES BY MOUTH THREE TIMES A DAY WITH MEALS Sep 20, 2022 Non-VA medication recommended by MD provider. Patient wants to buy from Non-MD pharmacy. increased dose AND freq. Indication: FOR HIGH TRIGLYCERIDES OUTPT FLUTICASONE PROP 50MCG 120D NASAL INHL (Status = Active) INSTILL 1 SPRAY IN NOSTRIL(S) ONCE A DAY FOR RHINITIS (MUST BE USED DIRECTED FOR MINIMUM OF 21 DAYS TO PROVIDE ADEQUATE BENEFITS) Rx# [id number] Last Released: 11/05/24 Qty/Days Supply: Rx Expiration Date: 02/24/25 Refills Remainin Indication: FOR RHINITIS OUTPT GLIPIZIDE 10MG TAB (Status = Discontinued) TAKE ONE TABLET BY MOUTH THREE TIMES A DAY BEFORE MEALS FOR DIABETES TAKE 30 MINUTES BEFORE EATING. Rx# [id number] Last Released: 07/04/24 Qty/Days Supply: Rx Expiration Date: 10/25/24 Refills Remainin Indication: FOR DIABETES OUTPT HYDROCORTISONE 1% CREAM (Status = Active) APPLY SPARINGLY TO AFFECTED AREA(S) THREE TIMES A DAY NEEDED FOR SEBORRHEIC DERMATITIS FOR EXTERNAL USE ONLY. APPLY SPARINGLY. Rx# [id number] Last Released: 11/24/24 Qty/Days Supply: Rx Expiration Date: 11/21/25 Refills Remainin Indication: FOR SEBORRHEIC DERMATITIS OUTPT INSULIN,ASPART(EQV-NOVLG)100UN /ML FLXPEN (Status = ) INJECT 20 UNITS UNDER THE SKIN THREE TIMES A DAY BEFORE MEALS FOR DIABETES ADMINISTER 10 MINUTES BEFORE FOOD DIRECTED. REFRIGERATE UN-OPENED PENS. DISCARD CARTRIDGE 28 DAYS AFTER OPENING. Rx# [id number] Last Released: 07/02/24 Qty/Days Supply: 20 Rx Expiration Date: 10/25/24 Refills Remainin Indication: FOR DIABETES OUTPT INSULIN,GLARGINE 100 UNT/ML 3ML SOLOSTAR (Status = Active) INJECT 85 UNITS UNDER THE SKIN TWICE A DAY FOR DIABETES ADMINISTER AT SAME TIME EACH DAY DIRECTED. DISCARD ANY OPEN CARTRIDGE AFTER 28 DAYS. Rx# [id number] Last Released: 11/09/24 Qty/Days Supply: 50 Rx Expiration Date: 04/04/25 Refills Remainin Indication: FOR DIABETES OUTPT ISOSORBIDE MONONITRATE 30MG SA TAB (Status = ) TAKE ONE TABLET BY MOUTH TWICE A DAY FOR CHEST PAIN TAKE ON EMPTY STOMACH. SWALLOW WHOLE. DO NOT CRUSH OR CHEW. Rx# [id number] Last Released: 07/02/24 Qty/Days Supply: 180 Rx Expiration Date: 10/25/24 Refills Remainin Indication: FOR CHEST PAIN OUTPT KETOCONAZOLE 2% CREAM (Status = Active) APPLY SPARINGLY TO AFFECTED AREA(S) TWICE A DAY FOR SEBORRHEIC DERMATITIS (EXTERNAL USE ONLY) Rx# [id number] Last Released: 11/24/24 Qty/Days Supply: 60/ Rx Expiration Date: 11/21/25 Refills Remainin Indication: FOR SEBORRHEIC DERMATITIS OUTPT KETOCONAZOLE 2% SHAMPOO (Status = Active) USE SHAMPOO TO AFFECTED AREA(S) ONCE A DAY FOR SEBORRHEIC DERMATITIS (EXTERNAL USE ONLY) (SHAKE WELL) Rx# [id number] Last Released: 11/24/24 Qty/Days Supply: 360/ Rx Expiration Date: 11/21/25 Refills Remainin Indication: FOR SEBORRHEIC DERMATITIS OUTPT LACTOBACILLUS ACIDOPHILUS CHEW TAB (Status = ) CHEW AND SWALLOW 2 CAP/TABS BY MOUTH THREE TIMES A DAY FOR NUTRITION/DIETARY SUPPLEMENTATION FOLLOW EACH DOSE WITH A SMALL AMOUNT OF MILK, FRUIT JUICE, OR WATER. KEEP REFRIGERATED AFTER OPENING BOTTLE. Rx# [id number] Last Released: 04/04/24 Qty/Days Supply: 600/90 Rx Expiration Date: 10/25/24 Refills Remainin Indication: FOR NUTRITION/DIETARY SUPPLEMENTATION OUTPT LAMOTRIGINE 200MG TAB (Status = Active) TAKE ONE-HALF TABLET BY MOUTH ONCE A DAY NEEDED FOR BIPOLAR DISORDER Rx# [id number] Last Released: 11/17/24 Qty/Days Supply: 45/90 Rx Expiration Date: 06/24/25 Refills Remainin Indication: FOR BIPOLAR DISORDER OUTPT LISINOPRIL 40MG TAB (Status = Active) TAKE TWO TABLETS BY MOUTH ONCE A DAY FOR HIGH BLOOD PRESSURE DOSE INCREASE Rx# [id number] Last Released: 11/05/24 Qty/Days Supply: 180/90 Rx Expiration Date: 02/24/25 Refills Remainin Indication: FOR HIGH BLOOD PRESSURE OUTPT LURASIDONE HCL 40MG TAB (Status = Active) TAKE ONE TABLET BY MOUTH ONCE A DAY FOR BIPOLAR DISORDER - TAKE WITH LARGEST MEAL OF THE DAY Rx# [id number] Last Released: 11/05/24 Qty/Days Supply: 90/90 Rx Expiration Date: 03/24/25 Refills Remainin Indication: FOR BIPOLAR DISORDER OUTPT METFORMIN HCL 500MG 24HR SA TAB (Status = ) TAKE TWO TABLETS BY MOUTH ONCE A DAY FOR DIABETES TAKE WITH FOOD. AVOID ALCOHOL. DISCONTINUE BEFORE GETTING XRAY DYE. Rx# [id number] Last Released: 05/05/24 Qty/Days Supply: 60/30 Rx Expiration Date: 10/25/24 Refills Remainin Indication: FOR DIABETES OUTPT METFORMIN HCL 500MG 24HR SA TAB (Status = Active) TAKE ONE TABLET BY MOUTH TWICE A DAY FOR 1 WEEK, THEN TAKE TWO TABLETS EVERY MORNING AND TAKE ONE TABLET EVERY EVENING FOR 1 WEEK, THEN TAKE TWO TABLETS TWICE A DAY FOR DIABETES TAKE WITH FOOD. AVOID ALCOHOL. DISCONTINUE BEFORE GETTING XRAY DYE. Rx# [id number] Last Released: 11/25/24 Qty/Days Supply: 290/90 Rx Expiration Date: 11/24/25 Refills Remainin Indication: FOR DIABETES OUTPT METOPROLOL TARTRATE 50MG TAB (Status = ) TAKE ONE-HALF TABLET BY MOUTH TWICE A DAY FOR HIGH BLOOD PRESSURE TAKE WITH OR IMMEDIATELY FOLLOWING FOOD. Rx# [id number] Last Released: 06/29/24 Qty/Days Supply: 90 Rx Expiration Date: 10/25/24 Refills Remainin Indication: FOR HIGH BLOOD PRESSURE OUTPT NALTREXONE (EQV-REVIA) 50MG TAB (Status = Active) TAKE ONE TABLET BY MOUTH ONCE A DAY FOR ASSISTANCE WITH DEPENDENCY Rx# [id number] Last Released: 11/05/24 Qty/Days Supply: 90 Rx Expiration Date: 06/24/25 Refills Remainin Indication: FOR ASSISTANCE WITH DEPENDENCY OUTPT OMEPRAZOLE 40MG EC CAP (Status = Active) TAKE ONE CAPSULE BY MOUTH EVERY MORNING BEFORE A MEAL FOR GASTROESOPHAGEAL REFLUX DISEASE TAKE 30 MINUTES PRIOR TO FOOD. Rx# [id number] Last Released: 11/10/24 Qty/Days Supply: Rx Expiration Date: 11/07/25 Refills Remainin Indication: FOR GASTROESOPHAGEAL REFLUX DISEASE OUTPT PSYLLIUM ORAL PWD (Status = ) MIX AND DRINK 2 TEASPOONFULS BY MOUTH ONCE A DAY FOR CONSTIPATION MIX IN GLASS OF WATER/JUICE. FLAVOR SUBSTITUTIONS MAY/WILL OCCUR AND SPECIFIC VARIETIES WILL NOT BE PROVIDED. Rx# [id number] Last Released: 03/18/24 Qty/Days Supply: 1170/90 Rx Expiration Date: 10/25/24 Refills Remainin Indication: FOR CONSTIPATION OUTPT ROSUVASTATIN CA 40MG TAB (Status = ) TAKE ONE TABLET BY MOUTH EVERY EVENING FOR HIGH CHOLESTEROL Rx# [id number] Last Released: 11/04/24 Qty/Days Supply: Rx Expiration Date: 01/17/25 Refills Remainin Indication: FOR HIGH CHOLESTEROL OUTPT SITAGLIPTIN (EQV-ZITUVIO) 100MG TAB (Status = Discontinued) TAKE ONE TABLET BY MOUTH ONCE A DAY FOR DIABETES Rx# [id number] Last Released: 11/05/24 Qty/Days Supply: Rx Expiration Date: 01/17/25 Refills Remainin Indication: FOR DIABETES OUTPT TIRZEPATIDE 2.5MG/0.5ML INJ,SOLN PACK,4 (Status = Discontinued) INJECT 2.5MG(0.5ML) UNDER THE SKIN EVERY WEEK FOR DIABETES (ADMINISTER DOSE AT ANY TIME OF DAY, WITH OR WITHOUT MEALS) Rx# [id number] Last Released: Qty/Days Supply: 07/02 Rx Expiration Date: 11/25/25 Refills Remainin Indication: FOR DIABETES OUTPT TIRZEPATIDE 2.5MG/0.5ML INJ,SOLN PACK,4 (Status = Discontinued) INJECT 2.5MG(0.5ML) UNDER THE SKIN EVERY WEEK FOR DIABETES (ADMINISTER DOSE AT ANY TIME OF DAY, WITH OR WITHOUT MEALS) Rx# [id number] Last Released: 11/30/24 Qty/Days Supply: 07/02 Rx Expiration Date: 11/25/25 Refills Remainin Indication: FOR DIABETES OUTPT TIRZEPATIDE 5MG/0.5ML INJ,SOLN PACK,4 (Status = Active) INJECT 5MG(0.5ML) UNDER THE SKIN EVERY WEEK FOR DIABETES (ADMINISTER DOSE AT ANY TIME OF DAY, WITH OR WITHOUT MEALS) Rx# [id number] Last Released: 01/11/25 Qty/Days Supply: 07/02 Rx Expiration Date: 01/06/26 Refills Remainin Indication: FOR DIABETES OUTPT UREA 40% CREAM (Status = Active) APPLY TOPICALLY TO AFFECTED AREA(S) ONCE A DAY RUB IN UNTIL COMPLETELY ABSORBED. FOR TOPICAL USE ONLY. Rx# [id number] Last Released: 12/30/24 Qty/Days Supply: Rx Expiration Date: 12/30/25 Refills Remainin SUPPLIES OUTPT GLUCOSE SENSOR FREESTYLE ALFREDO 3 (Status = Discontinued) USE SENSOR EVERY 2 WEEKS FOR BLOOD SUGAR MONITORING CHANGE SENSOR/SITE EVERY 14 DAYS. TO REPLACE SENSOR FOR ANY REASON OR FOR TECHNICAL HELP PLEASE CALL [employer] DESK: -SPECIFIC PHONE NUMBER: ([phone]). Rx# [id number] Last Released: 11/05/24 Qty/Days Supply: Rx Expiration Date: 05/14/25 Refills Remainin Indication: FOR BLOOD SUGAR MONITORING OUTPT GLUCOSE SENSOR FREESTYLE ALFREDO 3 PLUS (Status = Active) USE SENSOR EVERY 15 DAYS FOR BLOOD SUGAR MONITORING CHANGE SENSOR/SITE EVERY 15 DAYS. TO REPLACE SENSOR FOR ANY REASON OR FOR TECHNICAL HELP PLEASE CALL [employer] [facility] DESK: -SPECIFIC PHONE NUMBER: ([phone]). Rx# [id number] Last Released: 11/25/24 Qty/Days Supply: Rx Expiration Date: 11/24/25 Refills Remainin Indication: FOR BLOOD SUGAR MONITORING OUTPT NEEDLE,PEN 31G,5MM (Status = Active) USE 1 NEEDLE UNDER THE SKIN TWICE A DAY FOR INJECTION Rx# [id number] Last Released: 11/26/24 Qty/Days Supply: Rx Expiration Date: 11/24/25 Refills Remainin Indication: FOR INJECTION OUTPT SHARPS DISPOSAL CONTAINER 2 GALLON SIZE (Status = Active) USE DIRECTED NEEDED SHARPS DISPOSAL Rx# [id number] Last Released: 01/14/25 Qty/Days Supply: Rx Expiration Date: 04/05/25 Refills Remainin Indication: SHARPS DISPOSAL OUTPT TRANSPARENT DRESSING 2 3/8IN X 2 3/4IN (Status = Active) USE/APPLY DRESSING(S) TO AFFECTED AREA(S) TWO TIMES PER WEEK OVERBANDAGE FOR PLACEMENT OVER SENSORS Rx# [id number] Last Released: 11/26/24 Qty/Days Supply: Rx Expiration Date: 11/24/25 Refills Remainin Indication: OVERBANDAGE PHARMACY TERMS AND POSSIBLE PATIENT ACTIONS INPT = MD inpatient order IV = MD intravenous medication OUTPT = MD outpatient prescription PHARMACY POSSIBLE PATIENT TERMS EXPLANATION ACTIONS -------- -- ACTIVE A prescription that can be If you have refills, filled at the local [facility] pharmacy. you may request a refill of this prescription from your VA pharmacy. CLINIC A medication you received during If you have questions a visit to a VA clinic or about this medication emergency department. contact your VA healthcare team. DISCONTINUED A prescription your provider has Contact your VA stopped. It is no longer healthcare team if you available to be sent to you or need more of this picked up at the VA pharmacy medication. window. A prescription which is too old Contact your VA to fill. This does not refer to healthcare team if you the expiration date of the need more of this medication in the container. medication. NON-VA A medication that came from If this medication someplace other than a VA information is pharmacy. This may be a incorrect or out of prescription from either the VA date, please tell your or non VA providers that was VA healthcare team. filled outside the VA. Or, it may be an [id number] (OTC), herbal, dietary supplements or sample medication. ON HOLD An active prescription that will Contact your VA not be filled until pharmacy pharmacy when you need resolves the issue. more of this medication. PARKED An active prescription that will Contact your VA not be filled until the patient pharmacy when you need requests it. this medication. PENDING This prescription order has been If you have been sent to the pharmacy for review instructed to start and is not ready yet. this medication now, contact your VA pharmacy. SUSPENDED An active prescription that is Contact your VA not scheduled to be filled yet. pharmacy if you need You should receive it before this medication now. you run out. ====== Medication reconciliation performed with confirmed /caregiver and /caregiver voiced an understanding of current medications? Yes [place]/caregiver were provided an updated medication list. Following results reviewed and discussed with patient: None Future Appointments: 01/21/2025 08:30 PB-JANN CVT AUDIO EVAL 3(P 01/21/2025 08:32 PB-CVT AUDIO EVAL 3(PRO) 01/26/2025 09:00 PB-JANN CHIRO 02/02/2025 09:40 COM CARE-PAIN [id number] 02/02/2025 13:00 PB-CAP PHONE PACT PHARM 02/09/2025 09:00 PB-JANN CHIRO 02/19/2025 09:20 PB-RICH CHAIREZ NURS [facility] ( 02/24/2025 13:20 PB-JANN CHIRO 03/09/2025 10:00 PB-JANN CHIRO 03/23/2025 09:00 PB-JANN CHIRO 04/06/2025 08:20 PB-JANN CHIRO 04/20/2025 08:40 PB-JANN CHIRO 05/04/2025 09:20 PB-JANN CHIRO 11/22/2025 10:00 PB-JANN PACT DELTA PCP /es/ OMAR Gambino [facility] Signed: 01/19/2025 12:49 [facility]INS [facility]
--- OUTSIDE RECORDS SUMMARY | 2025-01-19 19:00 | XMS_ITS | Encounter Summary ---
Author Name [facility] [place] [facility] [place] Address [address] [place] [address] Care Team Providers Care Rn Imaging Name Role Phone THOMAS BLACK Primary Care Provider Unavailabl e Selected Encounter This section includes the information on record at [place] for the Encounter. Date/Time Encounter Type Encounter Description Reason Pro vider Source Jan 20, 2025 12:00 AM Outpatient Encounter EVENT (HISTORICAL) IHE Encounter Template Text not used by [place] Plan of Treatment: Future Appointments (+ 6 months) and Future Tests (+/- 45 days) The Plan of Treatment section includes future care activities for the patient from all [place] treatmentfacilities. This section includes future appointments and future orders which are active, pending or scheduled. Future Appointments This section includes appointments that were scheduled to occur 6 months from the date of the Encounter, up to a maximum of 20 appointments. The data comes from all [place] treatment facilities. Appointment Date/Time Appointment Type Appointme nt Facility Name Jan 21, 2025 08:30 AM AMBULATORY - MEDICINE [facility] Jan 21, 2025 08:32 AM [place] [facility] Jan 21, 2025 03:20 PM AMBULATORY - MEDICINE [facility] Jan 26, 2025 09:00 AM AMBULATORY - MEDICINE [facility] Feb 02, 2025 09:40 AM [facility] [place] [facility] Feb 02, 2025 01:00 PM AMBULATORY [facility] MEDICINE [facility] Feb 09, 2025 09:00 AM AMBULATORY - MEDICINE [facility] Feb 19, 2025 09:20 AM AMBULATORY - MEDICINE [facility] Feb 22, 2025 08:30 AM AMBULATORY - MEDICINE [facility] Feb 22, 2025 08:31 AM AMBULATORY - MEDICINE [facility] Feb 24, 2025 01:20 PM AMBULATORY - MEDICINE [facility] Mar 09, 2025 10:00 AM AMBULATORY - MEDICINE [facility] Mar 23, 2025 09:00 AM [facility]ORY [facility]ICINE [facility] Apr 06, 2025 08:20 AM AMBULATORY - MEDICINE [facility] Apr 20, 2025 08:40 AM AMBULATORY - MEDICINE [facility] May 04, 2025 09:20 AM AMBUL[facility]ORY - MEDICINE [facility] Jul 20, 2025 09:30 AM AMBULATORY - MEDICINE [facility] Active, Pending, and Scheduled Orders This section includes a listing of several types of active, pending, and scheduled orders, including clinic medications orders, diagnostic test orders, procedure orders and consult orders; where the start date of the order is 45 days before the date of the Encounter or 45 days after the date of theEncounter. The data comes from all [place] treatment facilities. Test Date/Time Test Type Test Details Facility Name Jan 05, 2025 08:39 AM Consult Order PROSTHETIC S REQUEST - FLOW SHOES AND INSERTS [id number] Cons Nurse Case Manager's Choice [facility] Jan 06, 2025 12:00 AM Laboratory - Chemi stry Order OCCULT BLOOD FIT X1 SCREEN STOOL FECES [facility] Feb 20, 2025 12:00 AM Laboratory - Chemi stry Order TESTOSTERONE, TOTAL (PB-MA) GOLD/RED SST SERUM [facility] Feb 20, 2025 12:00 AM Laboratory - Chemi stry Order VITAMIN D, 25-HYDROXY GOLD/RED SST SERUM [facility] Lab Results: +/- 30 days of the encounter This section includes the Chemistry and Hematology Lab Results on record with [place] for the patient. Radiology Reports and Pathology Reports are provided separately, in subsequent sections. Lab Results This section contains the Chemistry/Hematology Results that were resulted 30 days before or 30 daysafter the date of the Encounter. Date/Time Source Result Type Result - Unit Interpretation Reference Range Specimen Type Comment Jan 06, 2025 01:43 PM [facility] HGA1C BLOOD Specimen Type: BLOOD No comment entered. Ordering Provider: IRVING KIRKPATRICK Report Released Date/Time: Jan 05, 2025 12:48 PM Reporting Lab: [place] [facility] [address] [place] [address] Performing Lab: [place] [facility] [address] [place] [address] HGA1C 9.6 H 4.0-6.0 Jan 06, 2025 01:43 PM [facility] BASIC METABOLIC PANEL PLASMA Specimen Type: PL ASMA No comment entered. Ordering Provider: IRVING KIRKPATRICK Report Released Date/Time: Jan 05, 2025 12:48 PM Reporting Lab: [place] [facility] [address] [place] [address] Performing Lab: [place] [facility] [address] [place] [address] CREATININE 0.80 mg/dL 0.7-1.3 UREA NITROGEN 8 [...] and tobacco- related health factors from the [place] facility where the Encounter took place. Current Smoking Status This section includes the most current smoking, or tobacco-related health factor, from the [place] facility where the Encounter took place. Date/Time Current Smoking Status Comment Dru linda Sep 17, 2024 11:09 AM VA-TOBACCO USE DEEPA E DAYS CIGARETTES [facility] Tobacco Use History This section includes a history of the smoking, or tobacco-related health factors, that were collected on or before the date of the Encounter. The data comes from the [place] facility where the Encounter took place. 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 Date/Time Encounter Note(s) Provider Source Jan 20, 2025 12:00 AM NONVA CONSULT: LOCAL TITLE: COMMUNITY CARE-CONSULT RESULT NOTE PB STANDARD TITLE: NONVA CONSULT DATE OF NOTE: JAN 20, 2025 ENTRY DATE: JAN 22, 2025@10:29:07 AUTHOR: MERISSA DAVIDSON EXP COSIGNER: URGENCY: STATUS: COMPLETED VistA Imaging - Scanned Document [facility] SCANNED DOCUMENT SIGNATURE NOT REQUIRED Electronically Filed: 01/22/2025 by: MERISSA Trammell [facility] MERISSA DAVIDSON [facility] Jan 20, 2025 12:00 AM NONVA CONSULT: LOCAL TITLE: COMMUNITY CARE-CONSULT RESULT NOTE PB STANDARD TITLE: NONVA CONSULT DATE OF NOTE: JAN 20, 2025 ENTRY DATE: JAN 22, 2025@12:01:22 AUTHOR: SIMON GARCIA EXP COSIGNER: URGENCY: STATUS: COMPLETED VistA Imaging - Scanned Document 01/20/25 [facility] - EMERGENCY DEPT. PROGRESS NOTE SCANNED DOCUMENT SIGNATURE NOT REQUIRED Electronically Filed: 01/22/2025 by: SIMON CORONA [facility] Jan 20, 2025 12:00 AM NONVA CONSULT: LOCAL TITLE: COMMUNITY CARE-CONSULT RESULT NOTE PB STANDARD TITLE: NONVA CONSULT DATE OF NOTE: JAN 20, 2025 ENTRY DATE: JAN 22, 2025@12:02:37 AUTHOR: SIMON GARCIA EXP COSIGNER: URGENCY: STATUS: COMPLETED VistA Imaging - Scanned Document 01/20/25 [facility] - EMERGENCY DEPT. PROGRESS NOTE SCANNED DOCUMENT SIGNATURE NOT REQUIRED Electronically Filed: 01/22/2025 by: SIMON CORONA [facility]
--- OUTSIDE RECORDS SUMMARY | 2025-01-20 04:00 | XMS_ITS | Encounter Summary ---
Author Name [facility] [facility] [place] [facility] [place] Address [address] [place] [address] Care Team Providers Care Associate Genetics Professor Name Role Phone THOMAS BLACK Primary Care Provider Unavailabl e Selected Encounter This section includes the information on record at [place] for the Encounter. Date/Time Encounter Type Encounter Description Reason Provider Source Jan 20, 2025 09:00 AM OFF/OP EST OCTOBER X REQ PHY/QHP PRIMARY CARE/MEDICINE ICD-10-CM M79.662 Pain in left lower leg IRENA HOUGH [facility] Encounter Template Text not used by [place] Assessments - Encounter Diagnoses This section includes the primary and secondary diagnoses documented for the Encounter. Date/Time Primary/Secondary Diagnosis Diagnosis Name Provider Source Jan 20, 2025 02:27 PM PRIMARY Pain in left lower leg BRINAREDPREMAI J [facility] Plan of Treatment: Future Appointments (+ 6 months) and Future Tests (+/- 45 days) The Plan of Treatment section includes future care activities for the patient from all [place] treatmentfacilities. This section includes future appointments and future orders which are active, pending or scheduled. Future Appointments This section includes appointments that were scheduled to occur 6 months from the date of the Encounter, up to a maximum of 20 appointments. The data comes from all [place] treatment facilities. Appointment Date/Time Appointment Type Appointme nt Facility Name Jan 21, 2025 08:30 AM [facility] [place]IC[place] [facility] Jan 21, 2025 08:32 AM [place]IC[place] [facility] Jan 21, 2025 03:20 PM [facility] [place] [facility] [place] [facility] Jan 26, 2025 09:00 AM [facility] [place] [facility] Feb 02, 2025 09:40 AM AMBULATORY - MEDICINE [place] [facility] Feb 02, 2025 01:00 PM AMBULATORY - MEDICINE [facility] Feb 09, 2025 09:00 AM [facility] [place]IC[place] [facility] Feb 19, 2025 09:20 AM AMBULATORY - MEDICINE [facility] Feb 22, 2025 08:30 AM AMBULATORY - MEDICINE [facility] Feb 22, 2025 08:31 AM AMBULATORY - MEDICINE [place] [facility] Feb 24, 2025 01:20 PM AMBULATORY - MEDICINE [facility] Mar 09, 2025 10:00 AM AMBULATORY - MEDICINE [facility] Mar 23, 2025 09:00 AM AMBULATORY - MEDICINE [facility] Apr 06, 2025 08:20 AM AMBULATORY - MEDICINE [facility] Apr 20, 2025 08:40 AM AMBULATORY - MEDICINE [facility] May 04, 2025 09:20 AM AMBULATORY - MEDICINE [facility] Jul 20, 2025 09:30 AM AMBULATORY - MEDICINE [facility] Active, Pending, and Scheduled Orders This section includes a listing of several types of active, pending, and scheduled orders, including clinic medications orders, diagnostic test orders, procedure orders and consult orders; where the start date of the order is 45 days before the date of the Encounter or 45 days after the date of theEncounter. The data comes from all [place] treatment [facility]. Test Date/Time Test Type Test Details Facility Name Jan 05, 2025 08:39 AM Consult Order PROSTHETIC S REQUEST - FLOW SHOES AND INSERTS [id number] Cons Construction Services Technician's Choice [place] [facility] Jan 06, 2025 12:00 AM Laboratory - Chemi stry Order OCCULT BLOOD FIT X1 SCREEN STOOL FECES [facility] Feb 20, 2025 12:00 AM Laboratory - Chemi stry Order TESTOSTERONE, TOTAL (PB-MA) GOLD/RED SST SERUM [facility] Feb 20, 2025 12:00 AM Laboratory - Chemi stry Order VITAMIN D, 25-HYDROXY GOLD/RED SST SERUM SP [facility] Lab Results: +/- 30 days of the encounter This section includes the Chemistry and Hematology Lab Results on record with [place] for [place]. Radiology Reports and Pathology Reports are provided separately, in subsequent sections. Lab Results This section contains the Chemistry/Hematology Results that were resulted 30 days before or 30 daysafter the date of the Encounter. Date/Time Source Result Type Result - Unit Interpretation Reference Range Specimen Type Comment Jan 06, 2025 01:43 PM [facility] HGA1C BLOOD Specimen Type: BLOOD No comment entered. Ordering Provider: IRVING KIRKPATRICK Report Released Date/Time: Jan 05, 2025 12:48 PM Reporting Lab: [place] [facility] [address] [place] [address] Performing Lab: [place] [facility] [address] [place] [address] HGA1C 9.6 H 4.0-6.0 Jan 06, 2025 01:43 PM [facility] BASIC METABOLIC PANEL PLASMA Specimen Type: PL ASMA No comment entered. Ordering Provider: IRVING KIRKPATRICK Report Released Date/Time: Jan 05, 2025 12:48 PM Reporting Lab: [place] [facility] [address] [place] [address] Performing Lab: [place] [facility] [address] [place] [address] CREATININE 0.80 mg/dL 0.7-1.3 UREA NITROGEN 8 mg/dL L 9-25 GLUCOSE 293 mg/dL H 72-99 SODIUM 140 meq/L 136-145 POTASSIUM 3.9 meq/L 3.5-5 CHLORIDE 105 meq/L 98-107 CARBON DIOXIDE 26 meq/L 22-31 CALCIUM 9.4 mg/dL 8.4-10.4 EGFR (CKD-EPI 2020) 111 Vital Signs: All taken on the encounter date This section contains inpatient and outpatient Vital Signs collected on the date of the Encounter. Date/Time Temperature Pulse Blood Pressure Respiratory Rate SP02 Pain Height Weight Body Mass Index Source Jan 20, 2025 02:08 PM 98 F 84 /min 133/88 mm[Hg] [facility] Social History: Smoking Status (Most current) and Tobacco Use (All prior to encounter date) This section includes the most current, and the historical, smoking and tobacco- related health factors from the [place] facility where the Encounter took place. Current Smoking Status This section includes the most current smoking, or tobacco-related health factor, from the [place] facility where the Encounter took place. Date/Time Current Smoking Status Comment Facil ity Nov 20, 2024 08:30 AM VA-TOBACCO USE ADVICE [facility] Tobacco Use History This section includes a history of the smoking, or tobacco-related health factors, that were collected on or before the date of the Encounter. The data comes from the [place] facility where the Encounter took place. 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 [facility] Nov 20, 2024 08:30 AM VA-TOBACCO USE MED NO [facility] Sep 19, 2022 10:00 AM VA-TOBACCO FORMER USER [facility] Sep 19, 2022 10:00 AM VA-TOBACCO QUIT 5 TO < 15 YRS [facility] Mar 20, 2021 10:30 AM VA-TOBACCO DOESNT USE WI 30 MIN WAKEUP [facility] Mar 20, 2021 10:30 AM VA-TOBACCO USE > 1 5 LESS THAN 30 YEARS [facility] Mar 20, 2021 10:30 AM VA-TOBACCO USE ADVICE [facility] Mar 20, 2021 10:30 AM VA-TOBACCO USE CREDIT UNDERWRITER YES interested in patches [facility] Mar 20, 2021 10:30 AM VA-TOBACCO USE MED NOTIFY PROVIDER Interested in patches [facility] Mar 20, 2021 10:30 AM VA-TOBACCO USER EVERY DAY [facility] Mar 07, 2020 02:00 PM VA-TOBACCO FORMER USER [facility] Mar 07, 2020 02:00 PM VA-TOBACCO QUIT 1 TO < 5 YRS [facility] Mar 11, 2018 11:32 AM QUIT TOBACCO >12 M O & <7 YRS AGO [place] [facility] Aug 12, 2015 11:21 AM QUIT TOBACCO >7 YEARS AGO [facility] Apr 15, 2014 01:29 PM QUIT TOBACCO >12 M O & <7 YRS AGO [facility] Apr 15, 2014 01:29 PM QUIT TOBACCO IN TH E LAST 12 MONTHS [facility] Jan 28, 2013 01:13 PM QUIT TOBACCO >12 M O & <7 YRS AGO [facility] Encounter Notes: All associated encounter notes This section contains the clinical notes associated to the Encounter. Date/Time Encounter Note(s) Provider Source Jan 20, 2025 02:08 PM NURSING PROGRESS N OTE: LOCAL TITLE: NURSING NOTE PB STANDARD TITLE: NURSING PROGRESS NOTE DATE OF NOTE: JAN 20, 2025@14:08 ENTRY DATE: JAN 20, 2025@14:08:40 AUTHOR: IRENA HOUGH EXP COSIGNER: URGENCY: STATUS: COMPLETED Blood Pressure: 133/88 Pulse: 84 Temperature: 98 F (36.7 C) Pulse Oximetry: 95% Active Outpatient Medications: Active Outpatient Medications (including Supplies): Active Outpatient Medications [...] BENEFITS) Indication: FOR RHINITIS 8) GLUCOSE SENSOR FREESTYLE ALFREDO 3 PLUS USE SENSOR EVERY 15 ACTIVE DAYS CHANGE SENSOR/SITE EVERY 15 DAYS. TO REPLACE SENSOR FOR ANY REASON OR FOR TECHNICAL HELP PLEASE CALL [employer] HELP DESK: -SPECIFIC PHONE NUMBER: [phone]). Indication: FOR BLOOD SUGAR MONITORING 9) HYDROCORTISONE [...] (SHAKE WELL) Indication: FOR SEBORRHEIC DERMATITIS 13) LAMOTRIGINE 200MG TAB TAKE ONE-HALF TABLET BY MOUTH ONCE A ACTIVE (S) DAY NEEDED Indication: FOR BIPOLAR DISORDER 14) LISINOPRIL 40MG TAB TAKE TWO TABLETS BY MOUTH ONCE A DAY ACTIVE DOSE INCREASE Indication: FOR HIGH BLOOD PRESSURE 15) LURASIDONE HCL 40MG TAB TAKE ONE TABLET BY MOUTH ONCE A DAY ACTIVE - TAKE WITH LARGEST MEAL OF THE DAY Indication: FOR BIPOLAR DISORDER 16) METFORMIN HCL 500MG 24HR SA TAB TAKE ONE TABLET BY MOUTH ACTIVE TWICE A DAY FOR 1 WEEK, THEN TAKE TWO TABLETS EVERY MORNING AND TAKE ONE TABLET EVERY EVENING FOR 1 WEEK, THEN TAKE TWO TABLETS TWICE A DAY TAKE WITH FOOD. AVOID ALCOHOL. DISCONTINUE BEFORE GETTING XRAY DYE. Indication: FOR DIABETES 17) NALTREXONE (EQV-REVIA) 50MG TAB TAKE ONE TABLET BY MOUTH ACTIVE ONCE A DAY Indication: FOR ASSISTANCE WITH DEPENDENCY 18) NEEDLE,PEN 31G,5MM USE 1 NEEDLE UNDER THE SKIN TWICE A DAY ACTIVE Indication: FOR INJECTION 19) OMEPRAZOLE 40MG EC CAP TAKE ONE CAPSULE BY MOUTH EVERY ACTIVE MORNING BEFORE A MEAL TAKE 30 MINUTES PRIOR TO FOOD. Indication: FOR GASTROESOPHAGEAL REFLUX DISEASE 20) CONTAINER 2 GALLON SIZE USE DIRECTED NEEDED ACTIVE Indication: SHARPS DISPOSAL 21) TIRZEPATIDE 5MG/0.5ML INJ,SOLN PACK,4 INJECT 5MG(0.5ML) ACTIVE UNDER THE SKIN EVERY WEEK (ADMINISTER DOSE AT ANY TIME OF DAY, WITH OR WITHOUT MEALS) Indication: FOR DIABETES 22) TRANSPARENT DRESSING 2 3/8IN X 2 3/4IN USE/APPLY DRESSING(S) ACTIVE TO AFFECTED AREA(S) TWO TIMES PER WEEK FOR PLACEMENT OVER SENSORS Indication: OVERBANDAGE 23) UREA 40% CREAM APPLY TOPICALLY TO AFFECTED AREA(S) ONCE A ACTIVE DAY RUB IN UNTIL COMPLETELY ABSORBED. FOR TOPICAL USE ONLY. Active Non-VA Medications Status 1) Non-VA FISH OIL 1000MG ORAL CAP 2000MG BY MOUTH THREE TIMES ACTIVE A DAY WITH MEALS Indication: FOR HIGH TRIGLYCERIDES CC: presents with pain left calf for 2 days. Subjective: reports he woke up 2 days ago with pain in left calf area. Reports movements and standing makes pain worse. He states he has applied warmth to area with no improvement. O/A: Mora is alert and oriented. Respirations easy with no shortness of breath. Heart rate regular with no peripheral edema left lower extremity. Left calf area with no redness, warmth, or signs of infection. Holmons sign positive. No palpated lumps. Plan/ Intervention: Discussed with PCP. to report to ER for further evaluation for possible DVT. Mora states [facility]. Emergency reporting number given with stated understanding to call. ER consult to be placed by PCP. Report called to [facility] OLVERA. RTC: As scheduled and as needed. Per [employer] Directive 1605.06, wristband documentation: Patient wristband was removed and destroyed by (staff name) Irena Hough and placed in the designated [employer]-goTenna bin. /es/ IRENA HALL, [facility] Signed: 01/20/2025 14:26 IRENA HOUGH [facility]
--- OUTSIDE RECORDS SUMMARY | 2025-01-20 08:40 | XMS_ITS | Encounter Summary ---
Author Name [facility] Organization [facility] Address [address] [place] [address] Care Team Providers Care Specimen Collector Name Role Phone THOMAS BLACK Primary Care Provider Unavailabl e Selected Encounter This section includes the information on record at ID for the Encounter. Date/Time Encounter Type Encounter Description Reason Pro vider Source Jan 20, 2025 01:40 PM Outpatient Encounter ADMIN PAT ACTIVTIES (MASNONCT) I[facility] Encounter Template Text not used by ID Plan of Treatment: Future Appointments (+ 6 months) and Future Tests (+/- 45 days) The Plan of Treatment section includes future care activities for the patient from all ID treatmentfacilities. This section includes future appointments and future orders which are active, pending or scheduled. Future Appointments This section includes appointments that were scheduled to occur 6 months from the date of the Encounter, up to a maximum of 20 appointments. The data comes from all ID treatment facilities. Appointment Date/Time Appointment Type Appointme nt Facility Name Jan 21, 2025 08:30 AM AMBULATORY - MEDICINE [facility] Jan 21, 2025 08:32 AM AMBUL[facility]ORY - [place]IC[place] [facility] Jan 21, 2025 03:20 PM AMBULATORY - MEDICINE [facility] Jan 26, 2025 09:00 AM AMBULATORY - MEDICINE [facility] Feb 02, 2025 09:40 AM [facility]ORY - [place]IC[place] [facility] Feb 02, 2025 01:00 PM AMBULATORY - [place]IC[place] [facility] Feb 09, 2025 09:00 AM AMBULATORY - MEDICINE [facility] Feb 19, 2025 09:20 AM AMBULATORY - MEDICINE [facility] Feb 22, 2025 08:30 AM AMBULATORY - MEDICINE [facility] Feb 22, 2025 08:31 AM AMBULATORY - MEDICINE [place] [facility] Feb 24, 2025 01:20 PM AMBULATORY - MEDICINE [facility] Mar 09, 2025 10:00 AM AMBULATORY - MEDICINE [facility] Mar 23, 2025 09:00 AM AMBULATORY - MEDICINE [facility] Apr 06, 2025 08:20 AM AMBULATORY - MEDICINE [facility] Apr 20, 2025 08:40 AM AMBULATORY - MEDICINE [facility] May 04, 2025 09:20 AM AMBULATORY - MEDICINE [facility] Jul 20, 2025 09:30 AM AMBULATORY - MEDICINE [facility] Active, Pending, and Scheduled Orders This section includes a listing of several types of active, pending, and scheduled orders, including clinic medications orders, diagnostic test orders, procedure orders and consult orders; where the start date of the order is 45 days before the date of the Encounter or 45 days after the date of theEncounter. The data comes from all ID treatment facilities. Test Date/Time Test Type Test Details Facility Name Jan 05, 2025 08:39 AM Consult Order PROSTHETIC S REQUEST - FLOW SHOES AND INSERTS [id number] [facility] Specialist's Choice [facility] Jan 06, 2025 12:00 AM Laboratory - Chemi stry Order OCCULT BLOOD FIT X1 SCREEN STOOL FECES [facility] Feb 20, 2025 12:00 AM Laboratory - Chemi stry Order TESTOSTERONE, TOTAL (PB-MA) GOLD/RED SST [facility]UM [facility] Feb 20, 2025 12:00 AM Laboratory - Chemi stry Order VITAMIN D, 25-HYDROXY GOLD/RED SST [facility] Lab Results: +/- 30 days of the encounter This section includes the Chemistry and Hematology Lab Results on record with ID for the patient. Radiology Reports and Pathology Reports are provided separately, in subsequent sections. Lab Results This section contains the Chemistry/Hematology Results that were resulted 30 days before or 30 daysafter the date of the Encounter. Date/Time Source Result Type Result - Unit Interpretation Reference Range Specimen Type Comment Jan 06, 2025 01:43 PM [facility] HGA1C BLOOD Specimen Type: BLOOD No comment entered. Ordering Provider: IRVING KIRKPATRICK Report Released Date/Time: Jan 05, 2025 12:48 PM Reporting Lab: [place] [facility] [address] [place] [address] Performing Lab: [place] [facility] [address] [place] [address] HGA1C 9.6 H 4.0-6.0 Jan 06, 2025 01:43 PM [facility] BASIC METABOLIC PANEL PLASMA Specimen Type: PL ASMA No comment entered. Ordering Provider: IRVING KIRKPATRICK Report Released Date/Time: Jan 05, 2025 12:48 PM Reporting Lab: [place] [facility] [address] [place] [address] Performing Lab: [place] [facility] [address] [place] [address] CREATININE 0.80 mg/dL 0.7-1.3 UREA NITROGEN 8 [...] PM 98 F 84 /min 133/88 mm[Hg] [facility] Social History: Smoking Status (Most current) and Tobacco Use (All prior to encounter date) This section includes the most current, and the historical, smoking and tobacco- related health factors from the ID facility where the Encounter took place. Current Smoking Status This section includes the most current smoking, or tobacco-related health factor, from the ID facility where the Encounter took place. Date/Time Current Smoking Status Comment Dru linda Nov 20, 2024 08:30 AM VA-TOBACCO USE OPERATOR [place] [facility] Tobacco Use History This section includes a history of the smoking, or tobacco-related health factors, that were collected on or before the date of the Encounter. The data comes from the ID facility where the Encounter took place. Date/Time Smoking Status/Tobacco Use Comment F acility Nov 20, 2024 08:30 AM VA-TOBACCO USE ADVICE [facility] [place] [facility] Nov 20, 2024 08:30 AM VA-TOBACCO USE OPERATOR [facility] [facility] Nov 20, 2024 08:30 AM VA-TOBACCO USE MED NO [facility] Sep 19, 2022 10:00 AM VA-TOBACCO FORMER USER [facility] Sep 19, 2022 10:00 AM VA-TOBACCO QUIT 5 TO < [address] [facility] Mar 20, 2021 10:30 AM VA-TOBACCO DOESNT USE WI [address] [facility] Mar 20, 2021 10:30 AM VA-TOBACCO USE > [address] TH[address] [facility] Mar 20, 2021 10:30 AM VA-TOBACCO USE ADVICE [facility] Mar 20, 2021 10:30 AM VA-TOBACCO USE OPERATOR LIGHTS YES interested in patches [facility] Mar 20, 2021 10:30 AM VA-TOBACCO USE MED NOTIFY PROVIDER Interested in patches [facility] Mar 20, 2021 10:30 AM VA-TOBACCO USER EVERY DAY [facility] Mar 07, 2020 02:00 PM VA-TOBACCO FORMER USER [facility] Mar 07, 2020 02:00 PM VA-TOBACCO QUIT 1 TO < [address] [facility] Mar 11, 2018 11:32 AM QUIT TOBACCO >12 M O & <7 YRS AGO [facility] [place] [facility] Aug 12, 2015 11:21 AM QUIT TOBACCO >7 YEARS AGO [facility] Apr 15, 2014 01:29 PM QUIT TOBACCO >12 M O & <7 YRS AGO [facility] Apr 15, 2014 01:29 PM QUIT TOBACCO IN TH E LAST 12 MONTHS [facility] Jan 28, 2013 01:13 PM QUIT TOBACCO >12 M O & <[address] [facility] Encounter Notes: All associated encounter notes This section contains the clinical notes associated to the Encounter. Date/Time Encounter Note(s) Provider Source Jan 20, 2025 01:40 PM GENERAL MEDICINE N OTE: LOCAL TITLE: General Note PB STANDARD TITLE: GENERAL MEDICINE NOTE DATE OF NOTE: JAN 20, 2025@13:40 ENTRY DATE: JAN 20, 2025@13:40:48 AUTHOR: VÍCTOR HOFF EXP COSIGNER: URGENCY: STATUS: COMPLETED Confirmed audio appt for 01/21 with [place]. /walt/ KAYCE RAMIRES [facility] Signed: 01/20/2025 13:[address] [facility]
--- OUTSIDE RECORDS SUMMARY | 2025-01-20 14:37 | XMS_ITS ---
Author Name [facility] Address [address] [place] [address] Care Team Providers Care Sharepoint Solutions Architect Name Role Phone THOMAS BLACK Primary Care Provider Unavailabl e Selected Encounter This section includes the information on record at [place] for the Encounter. Date/Time Encounter Type Encounter Description Reason Pro vider Source Jan 20, 2025 07:37 PM Outpatient Encounter ADMIN PAT ACTIVTIES (MASNONCT) [facility] Encounter Template Text not used by [place] Plan of Treatment: Future Appointments (+ 6 months) and Future Tests (+/- 45 days) The Plan of Treatment section includes future care activities for the patient from all [place] treatmentfacilities. This section includes future appointments and future orders which are active, pending or scheduled. Future Appointments This section includes appointments that were scheduled to occur 6 months from the date of the Encounter, up to a maximum of 20 appointments. The data comes from all [place] treatment facilities. Appointment Date/Time Appointment Type Appointme nt Facility Name Jan 21, 2025 08:30 AM AMBULATORY - MEDICINE [facility] Jan 21, 2025 08:32 AM [facility] MEDIC[facility] [place] [facility] Jan 21, 2025 03:20 PM AMBULATORY - MEDICINE [facility] Jan 26, 2025 09:00 AM AMBULATORY - MEDICINE [facility] Feb 02, 2025 09:40 AM [facility] [facility] Feb 02, 2025 01:00 PM [facility] - [facility] [facility] Feb 09, 2025 09:00 AM AMBULATORY - MEDICINE [facility] Feb 19, 2025 09:20 AM AMBULATORY - MEDICINE [facility] Feb 22, 2025 08:30 AM AMBULATORY - MEDICINE [facility] Feb 22, 2025 08:31 AM AM[facility]ULATORY - MEDICINE [place] [facility] Feb 24, 2025 01:20 PM AMBULATORY - MEDICINE [facility] Mar 09, 2025 10:00 AM AMBULATORY - MEDICINE [facility] Mar 23, 2025 09:00 AM AMBULATORY - MEDICINE [facility] Apr 06, 2025 08:20 AM AMBULATORY - MEDICINE [facility] Apr 20, 2025 08:40 AM AMBULATORY - MEDICINE [facility] May 04, 2025 09:20 AM AMBULATORY - MEDICINE [facility] Jul 20, 2025 09:30 AM AMBULATORY - MEDICINE [facility] Active, Pending, and Scheduled Orders This section includes a listing of several types of active, pending, and scheduled orders, including clinic medications orders, diagnostic test orders, procedure orders and consult orders; where the start date of the order is 45 days before the date of the Encounter or 45 days after the date of theEncounter. The data comes from all [place] treatment facilities. Test Date/Time Test Type Test Details Facility Name Jan 05, 2025 08:39 AM Consult Order PROSTHETIC S REQUEST - FLOW SHOES AND INSERTS 657A4 Cons Impregnator And Drier Helper's Choice [facility] Jan 06, 2025 12:00 AM Laboratory - Chemi stry Order OCCULT BLOOD FIT X1 SCREEN STOOL FECES [facility] Feb 20, 2025 12:00 AM Laboratory - Chemi stry Order TESTOSTERONE, TOTAL (PB-MA) GOLD/RED SST SERUM [facility] Feb 20, 2025 12:00 AM Laboratory - Chemi stry Order VITAMIN D, 25-HYDROXY GOLD/RED SST SERUM [facility] Lab Results: +/- 30 days of the encounter This section includes the Chemistry and Hematology Lab Results on record with [place] for the patient. Radiology Reports and Pathology Reports are provided separately, in subsequent sections. Lab Results This section contains the Chemistry/Hematology Results that were resulted 30 days before or 30 daysafter the date of the Encounter. Date/Time Source Result Type Result - Unit Interpretation Reference Range Specimen Type Comment Jan 06, 2025 01:43 PM [facility] HGA1C BLOOD Specimen Type: BLOOD No comment entered. Ordering Provider: IRVING KIRKPATRICK Report Released Date/Time: Jan 05, 2025 12:48 PM Reporting Lab: [place] [facility] [address] [place] [address] Performing Lab: [place] [facility] [address] [place] [address] HGA1C 9.6 H 4.0-6.0 Jan 06, 2025 01:43 PM [facility] BASIC METABOLIC PANEL PLASMA Specimen Type: PL ASMA No comment entered. Ordering Provider: IRVING KIRKPATRICK Report Released Date/Time: Jan 05, 2025 12:48 PM Reporting Lab: [place] [facility] [address] [place] [address] Performing Lab: [place] [facility] [address] [place] [address] CREATININE 0.80 mg/dL 0.7-1.3 UREA NITROGEN 8 [...] and tobacco- related health factors from the [place] facility where the Encounter took place. Current Smoking Status This section includes the most current smoking, or tobacco-related health factor, from the [place] facility where the Encounter took place. Date/Time Current Smoking Status Comment Dru linda Sep 17, 2024 11:09 AM VA-TOBACCO USE DEEPA E DAYS CIGARETTES [facility] Tobacco Use History This section includes a history of the smoking, or tobacco-related health factors, that were collected on or before the date of the Encounter. The data comes from the [place] facility where the Encounter took place. Date/Time Smoking Status/Tobacco Use Comment F acility Sep 17, 2024 11:09 AM VA-TOBACCO USE DEEPA E DAYS CIGARETTES [facility] Sep 10, 2023 02:39 PM VA-TOBACCO [place]ESNT USE [place] [address] [facility] Sep 10, 2023 02:39 PM VA-TOBACCO USE > 1 [address]ESS THAN [address] [facility] Sep 10, 2023 02:39 PM VA-TOBACCO USE ADVICE [facility] Sep 10, 2023 02:39 PM VA-TOBACCO USE AREA PLANT MANAGER NO [facility] Sep 10, 2023 02:39 PM VA-TOBACCO USE MED NO [facility] Sep 10, 2023 02:39 PM VA-TOBACCO USER EVERY DAY [facility] Encounter Notes: All associated encounter notes This section contains the clinical notes associated to the Encounter. Date/Time Encounter Note(s) Provider Source Jan 20, 2025 07:37 PM ADMINISTRATIVE NOT E: LOCAL TITLE: ADMINISTRATIVE NOTE PB STANDARD TITLE: ADMINISTRATIVE NOTE DATE OF NOTE: JAN 20, 2025@19:37 ENTRY DATE: JAN 20, 2025@19:38:14 AUTHOR: KARLA CORMIER EXP COSIGNER: URGENCY: STATUS: COMPLETED Presented by POV to [facility]. Added to [facility] log and BMS board. /walt/ KARLA CORMIER Gripper Attacher Signed: 01/20/2025 19:38 [facility]
--- OUTSIDE RECORDS SUMMARY | 2025-01-21 03:30 | XMS_ITS | Encounter Summary ---
Author Name [facility] [place] [facility] [place] Organization [facility] [place] Address [address] [place] [address] Care Team Providers Care Special Forces Warrant Officer Name Role Phone THOMAS BLACK Primary Care Provider Unavailabl e Selected Encounter This section includes the information on record at [place] for the Encounter. Date/Time Encounter Type Encounter Description Reason Provider Source Jan 21, 2025 08:30 AM TELEHEALTH FACILITY FEE AUDIOLOGY ICD-10-CM H93.13 Tinnitus, bilateral GRAVES,ALEXAND RA A IHE Encounter Template Text not used by [place] Assessments - Encounter Diagnoses This section includes the primary and secondary diagnoses documented for the Encounter. Date/Time Primary/Secondary Diagnosis Diagnosis Name Provider Source Jan 21, 2025 09:36 AM PRIMARY Tinnitus, bilateral CORETTA,KIMBERL EY L [facility] Jan 21, 2025 09:36 AM SECONDARY Sensorineural hearing loss, bilateral CORETTA,KIMBERL EY L [facility] Plan of Treatment: Future Appointments (+ 6 months) and Future Tests (+/- 45 days) The Plan of Treatment section includes future care activities for the patient from all [place] treatmentfacilities. This section includes future appointments and future orders which are active, pending or scheduled. Future Appointments This section includes appointments that were scheduled to occur 6 months from the date of the Encounter, up to a maximum of 20 appointments. The data comes from all [place] treatment facilities. Appointment Date/Time Appointment Type Appointme nt Facility Name Jan 26, 2025 09:00 AM AMBULATORY - MEDICINE [facility] Feb 02, 2025 09:40 AM [facility] [place]IC[facility] [place] [facility] Feb 02, 2025 01:00 PM [facility] MED[facility]INE [facility] [place] [facility] Feb 09, 2025 09:00 AM AMBULATORY - MEDICINE [facility] Feb 19, 2025 09:20 AM AMBULATORY - MEDICINE [facility] Feb 22, 2025 08:30 AM AMBULATORY - MEDICINE [facility] Feb 22, 2025 08:31 AM [facility]ORY [facility]IC[facility] [place] [facility] Feb 24, 2025 01:20 PM AMBULATORY - MEDICINE [facility] Mar 09, 2025 10:00 AM AMBULATORY - MEDICINE [facility] Mar 23, 2025 09:00 AM AMBULATORY - MEDICINE [facility] Apr 06, 2025 08:20 AM AMBULATORY - MEDICINE [facility] Apr 20, 2025 08:40 AM AMBULATORY - MEDICINE [facility] May 04, 2025 09:20 AM AMBULATORY - MEDICINE [facility] Jul 20, 2025 09:30 AM AMBULATORY - MEDICINE [facility] Active, Pending, and Scheduled Orders This section includes a listing of several types of active, pending, and scheduled orders, including clinic medications orders, diagnostic test orders, procedure orders and consult orders; where the start date of the order is 45 days before the date of the Encounter or 45 days after the date of theEncounter. The data comes from all [facility]. Test Date/Time Test Type Test Details Facility Name Jan 05, 2025 08:39 AM Consult Order PROSTHETIC S REQUEST - FLOW SHOES AND INSERTS 657A4 Cons Water Jet Operator's Choice [facility] Jan 06, 2025 12:00 AM Laboratory - Chemi stry Order OCCULT BLOOD FIT X1 SCREEN STOOL FECES [facility] Feb 20, 2025 12:00 AM Laboratory - Chemi stry Order TESTOSTERONE, TOTAL (PB-MA) GOLD/RED SST SERUM [facility] Feb 20, 2025 12:00 AM Laboratory - Chemi stry Order VITAMIN D, 25-HYDROXY GOLD/RED SST SERUM [facility] Lab Results: +/- 30 days of the encounter This section includes the Chemistry and Hematology Lab Results on record with [facility] for the patient. Radiology Reports and Pathology Reports are provided separately, in subsequent sections. Lab Results This section contains the Chemistry/Hematology Results that were resulted 30 days before or 30 daysafter the date of the Encounter. Date/Time Source Result Type Result - Unit Interpretation Reference Range Specimen Type Comment Jan 06, 2025 01:43 PM [place] [facility] HGA1C BLOOD Specimen Type: BLOOD No comment entered. Ordering Provider: IRVING KIRKPATRICK Report Released Date/Time: Jan 05, 2025 12:48 PM Reporting Lab: [place] [facility] [address] [place] [address] Performing Lab: [place] [facility] [address] [place] [address] HGA1C 9.6 H 4.0-6.0 Jan 06, 2025 01:43 PM [place] [facility] BASIC METABOLIC PANEL PLASMA Specimen Type: PL ASMA No comment entered. Ordering Provider: IRVING KIRKPATRICK Report Released Date/Time: Jan 05, 2025 12:48 PM Reporting Lab: [place] [facility] [address] [place] [address] Performing Lab: [place] [facility] [address] [place] [address] CREATININE 0.80 mg/dL 0.7-1.3 UREA NITROGEN 8 [...] Height Weight Body Mass Index Source Jan 21, 2025 03:20 PM 98.2 F 86 /min 144/105 mm[Hg] [facility] Social History: Smoking Status (Most current) and Tobacco Use (All prior to encounter date) This section includes the most current, and the historical, smoking and tobacco- related health factors from the [facility] facility where the Encounter took place. Current Smoking Status This section includes the most current smoking, or tobacco-related health factor, from the [facility] facility where the Encounter took place. Date/Time Current Smoking Status Comment Facil ity Nov 20, 2024 08:30 AM VA-TOBACCO SCREEN FOLLOW-UP [facility] Tobacco Use History This section includes a history of the smoking, or tobacco-related health factors, that were collected on or before the date of the Encounter. The data comes from the [place] facility where the Encounter took place. 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 [facility] Nov 20, 2024 08:30 AM VA-TOBACCO USE MED NO [facility] Sep 19, 2022 10:00 AM VA-TOBACCO FORMER USER [facility] Sep 19, 2022 10:00 AM VA-TOBACCO QUIT 5 TO < 15 YRS [facility] Mar 20, 2021 10:30 AM VA-TOBACCO DOESNT USE WI 30 MIN WAKEUP [facility] Mar 20, 2021 10:30 AM VA-TOBACCO USE > 1 5 LESS THAN 30 YEARS [facility] Mar 20, 2021 10:30 AM VA-TOBACCO USE ADVICE [facility] Mar 20, 2021 10:30 AM VA-TOBACCO USE ELECTRIC MOTOR REPAIR SUPERVISOR YES interested in patches [facility] Mar 20, 2021 10:30 AM VA-TOBACCO USE MED NOTIFY PROVIDER Interested [facility] Mar 20, 2021 10:30 AM VA-TOBACCO USER EVERY DAY [facility] Mar 07, 2020 02:00 PM VA-TOBACCO FORMER USER [facility] Mar 07, 2020 02:00 PM VA-TOBACCO QUIT 1 TO < 5 YRS [facility] Mar 11, 2018 11:32 AM QUIT TOBACCO >12 M O & <7 YRS AGO [facility] Aug 12, 2015 11:21 AM QUIT TOBACCO >7 YEARS AGO [facility] Apr 15, 2014 01:29 PM QUIT TOBACCO >12 M O & <7 YRS AGO [facility] Apr 15, 2014 01:29 PM QUIT TOBACCO IN TH E LAST 12 MONTHS [facility] Jan 28, 2013 01:13 PM QUIT TOBACCO >12 M O & <7 YRS AGO [facility] Encounter Notes: All associated encounter notes This section contains the clinical notes associated to the Encounter. Date/Time Encounter Note(s) Provider Source Jan 21, 2025 09:35 AM AUDIOLOGY NOTE: LOCAL TITLE: HEARING CLINIC PB STANDARD TITLE: AUDIOLOGY NOTE DATE OF NOTE: JAN 21, 2025@09:35 ENTRY DATE: JAN 21, 2025@09:35:17 AUTHOR: LIVIER HITCHCOCK EXP COSIGNER: URGENCY: STATUS: COMPLETED TELEHEALTH VISIT NOTE presented at the [facility] for a telehealth visit. The provider was physically located at [place]. Multi-factor personally identifiable information of the was obtained verbally. consented to be seen via telehealth/video-conferen cing technology. Confirmation was made that both patient and provider were able to hear and see each other clearly. TCT assisted in the set-up and delivery of the service provided by croze machine operator. Please see the provider's note in CPRS for more information. /walt/ LIVIER HITCHCOCK Telehealth Clinical Leg Breaker Signed: 01/21/2025 09:36 LIVIER HITCHCOCK [facility]
--- OUTSIDE RECORDS SUMMARY | 2025-01-21 03:32 | XMS_ITS | Encounter Summary ---
Author Name [facility] [place] [facility] [place] Organization [facility] [place] Address [address] [place] [address] Care Team Providers Care Chute Man Name Role Phone THOMAS BLACK Primary Care Provider Unavailabl e Selected Encounter This section includes the information on record at [place] for the Encounter. Date/Time Encounter Type Encounter Description Reason Provider Source Jan 21, 2025 08:32 AM HEARING AID [id number] AUDIOLOGY ICD-10-CM H93.13 Tinnitus, bilateral GRAVES,ALEXAND RA A IHE Encounter Template Text not used by [place] Assessments - Encounter Diagnoses This section includes the primary and secondary diagnoses documented for the Encounter. Date/Time Primary/Secondary Diagnosis Diagnosis Name Provider Source Jan 21, 2025 08:44 AM PRIMARY Tinnitus, bilateral GRAVES,ALEXAND RA A [place] [facility] Jan 21, 2025 08:44 AM SECONDARY Sensorineural hearing loss, bilateral GRAVES,ALEXAND RA A [place] [facility] Plan of Treatment: Future Appointments (+ 6 months) and Future Tests (+/- 45 days) The Plan of Treatment section includes future care activities for the patient from all [place] treatmentfacilities. This section includes future appointments and future orders which are active, pending or scheduled. Future Appointments This section includes appointments that were scheduled to occur 6 months from the date of the Encounter, up to a maximum of 20 appointments. The data comes from all [facility]. Appointment Date/Time Appointment Type Appointme nt Facility Name Jan 26, 2025 09:00 AM AM[facility]ULATORY [facility]INE [facility] Feb 02, 2025 09:40 AM AM[facility]ULATORY - MEDICINE [place] [facility] Feb 02, 2025 01:00 PM AMBULATORY - MEDICINE [place] [facility] Feb 09, 2025 09:00 AM [facility]BULATORY - MEDICINE [facility] Feb 19, 2025 09:20 AM AMBULATORY - MEDICINE [facility] Feb 22, 2025 08:30 AM AMBULATORY - MEDICINE [facility] Feb 22, 2025 08:31 AM AMBULATORY - MEDICINE [place] [facility] Feb 24, 2025 01:20 PM AMBULATORY - MEDICINE [facility] Mar 09, 2025 10:00 AM AMBULATORY - MEDICINE [facility] Mar 23, 2025 09:00 AM AMBULATORY - MEDICINE [facility] Apr 06, 2025 08:20 AM AMBULATORY - MEDICINE [facility] Apr 20, 2025 08:40 AM AMBULATORY - MEDICINE [facility] May 04, 2025 09:20 AM AMBULATORY - MEDICINE [facility] Jul 20, 2025 09:30 AM AMBULATORY - MEDICINE [facility] Active, Pending, and Scheduled Orders This section includes a listing of several types of active, pending, and scheduled orders, including clinic medications orders, diagnostic test orders, procedure orders and consult orders; where the start date of the order is 45 days before the date of the Encounter or 45 days after the date of theEncounter. The data comes from all [facility]. Test Date/Time Test Type Test Details Facility Name Jan 05, 2025 08:39 AM Consult Order PROSTHETIC S REQUEST - FLOW SHOES AND INSERTS 657A4 Cons Fly Raiser Lockstitch's Choice [place] [facility] Jan 06, 2025 12:00 AM Laboratory - Chemi stry Order OCCULT BLOOD FIT X1 SCREEN STOOL [facility]ECES [facility] Feb 20, 2025 12:00 AM Laboratory - Chemi stry Order TESTOSTERONE, TOTAL (PB-[place]) GOLD/RED SST SERUM [facility] Feb 20, 2025 12:00 AM Laboratory - Chemi stry Order VITAMIN D, 25-HYDROXY GOLD/RED SST [facility] [place] [facility] Lab Results: +/- 30 days of the encounter This section includes the Chemistry and Hematology Lab Results on record with [place] for the patient. Radiology Reports and Pathology [...] 12:48 PM Reporting Lab: [place] [facility] [address] [place] [address] Performing Lab: [place] [facility] [address] [place] [address] HGA1C 9.6 H 4.0-6.0 Jan 06, 2025 01:43 PM [place] [facility] BASIC METABOLIC PANEL PLASMA Specimen Type: PL ASMA No comment entered. Ordering Provider: IRVING KIRKPATRICK Report Released Date/Time: Jan 05, 2025 12:48 PM Reporting Lab: [place] [facility] [address] [place] [address] Performing Lab: [place] [facility] [address] [place] [address] CREATININE 0.80 mg/dL 0.7-1.3 UREA NITROGEN 8 mg/dL L 9-25 GLUCOSE 293 mg/dL H 72-99 SODIUM 140 meq/L 136-145 POTASSIUM 3.9 meq/L 3.5-5 CHLORIDE 105 meq/L 98-107 CARBON DIOXIDE 26 meq/L 22-31 CALCIUM 9.4 mg/dL 8.4-10.4 EGFR (CKD-EPI 2020) 111 Encounter Notes: All associated encounter notes This section contains the clinical notes associated to the Encounter. Date/Time Encounter Note(s) Provider Source Jan 21, 2025 08:14 AM AUDIOLOGY NOTE: LOCAL TITLE: HEARING CLINIC PB STANDARD TITLE: AUDIOLOGY NOTE DATE OF NOTE: JAN 21, 2025@08:14 ENTRY DATE: JAN 21, 2025@08:14:45 AUTHOR: CALIN GROSSMAN COSIGNER: URGENCY: STATUS: COMPLETED Diagnosis: Sensorineural Hearing Loss, Bilateral and Tinnitus, Bilateral Treatment: Hearing Evaluation Time spent with : 60 minutes Wenona seen for an audiogram via Audio Telehealth and verbally consented to the Telehealth modality. Multi-factor personally identifiable information of the was obtained verbally (full name and date of ). Wenona accompanied by: Patient site: [facility] AUDIOLOGIC HISTORY: Patient seen today for an updated hearing evaluation. Patient states that he does not wear the hearing aids due to poor fit/retention difficulties. 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 Dislikes fit with glasses. AUDIOMETRIC EXAM: Otoscopy was performed by collaboration of telehealth clinical truck technician and provider via telehealth technology/video otoscope which revealed: Right: minimal non-occluding cerumen Left: minimal non-occluding cerumen Tympanograms: Right: consistent with normal middle ear function Left: consistent with normal middle ear function Acoustic Reflex Thresholds: not performed due to time constraints Pure-Tone Air and Bone-Conduction Audiometric Testing revealed: Right: within normal limits through 4000 Hz, mild sensorineural hearing loss Left: within normal limits through 4000 Hz, mild sensorineural hearing loss Speech Recognition Threshold testing yielded: Right: 25 dBHL Left: 25 dBHL Word Recognition testing yielded: Right: 100% @ 55 dBHL Left: 100% @ 55 dBHL Word scoring may be impacted by quality of audio through telehealth medium. Test Reliability: Good Visual inspection of hearing aids revealed plugged filters and twisted retention tails. Telehealth clinical truck technician cleaned right/left hearing aids including replacement of domes and filters. Installed medium vented dome in place of small Installed new retention tail on right device. A listening check revealed proper function. Connected hearing aids to software and updated firmware. PROVIDER COMMENTS/RECOMMENDATIONS: Hearing test results were reviewed with patient. Patient is a hearing aid candidate. Patient was counseled regarding realistic expectations for hearing aids, more specifically that hearing aids can make sounds louder but may not make speech more clear or understandable. Hearing conservation techniques were discussed and recommended. Hearing aid options were discussed, and the following devices ordered: Yodo1 R [email or web address] - Hearclear Other: push button and wheel Phone Connectivity: streaming and jim Confirmed phone compatibility with [employer]. expressed verbal consent prior to procedure. Ear mold impressions taken without complication by telehealth clinical truck technician. Ear canals clear post procedure. PLAN: 1) Return to clinic in four weeks for 60 minute hearing aid fitting. 2) Recommend hearing evaluation annually or prn. expressed understanding and is in agreement with the plan. /es/ Roger Parish [facility] Signed: 01/21/2025 09:10 [facility]
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
--- OUTSIDE RECORDS SUMMARY | 2025-01-22 04:58 | XMS_ITS | Encounter Summary ---
Author Name Department of [facility] [place] Organization [place] Address [address] [place] [address] Care Team Providers Care Special Machine Stitcher Name Role Phone THOMAS BLACK Primary Care Provider Unavailabl e Selected Encounter This section includes the information on record at NH for the Encounter. Date/Time Encounter Type Encounter Description Reason Provider Source Jan 22, 2025 09:58 AM Outpatient Encounter COMMUNITY CARE CONSULT HEATHER VEE Encounter Template Text not used by [place] Plan of Treatment: Future Appointments (+ 6 months) and Future Tests (+/- 45 days) The Plan of Treatment section includes future care activities for the patient from all [place] treatmentfacilities. This section includes future appointments and future orders which are active, pending or scheduled. Future Appointments This section includes appointments that were scheduled to occur 6 months from the date of the Encounter, up to a maximum of 20 appointments. The data comes from all [place] treatment facilities. Appointment Date/Time Appointment Type Appointme nt Facility Name Jan 26, 2025 09:00 AM AMBULATORY - MEDICINE [facility] Feb 02, 2025 09:40 AM AMBULATORY - MEDICINE [facility] Feb 02, 2025 01:00 PM AMBULATORY - MEDICINE [facility] Feb 09, 2025 09:00 AM AMBULATORY - MEDICINE [facility] Feb 19, 2025 09:20 AM AMBULATORY - MEDICINE [facility] Feb 22, 2025 08:30 AM AMBULATORY - MEDICINE [facility] Feb 22, 2025 08:31 AM AMBULATORY - MEDICINE [facility] Feb 24, 2025 01:20 PM AMBULATORY - MEDICINE [facility] Mar 09, 2025 10:00 AM AMBULATORY - MEDICINE [facility] Mar 23, 2025 09:00 AM AMBULATORY [facility] Apr 06, 2025 08:20 AM AMBULATORY [facility] Apr 20, 2025 08:40 AM AMBULATORY - MEDICINE [facility] May 04, 2025 09:20 AM AMBULATORY MEDICINE [facility] Jul 20, 2025 09:30 AM AMBULATORY [facility] Active, Pending, and Scheduled Orders This section includes a listing of several types of active, pending, and scheduled orders, including clinic medications orders, diagnostic test orders, procedure orders and consult orders; where the start date of the order is 45 days before the date of the Encounter or 45 days after the date of theEncounter. The data comes from all [place] treatment facilities. Test Date/Time Test Type Test Details Facility Name Jan 05, 2025 08:39 AM Consult Order PROSTHETIC S REQUEST - FLOW SHOES AND INSERTS 657A4 Cons Hand Sprayer's Choice [facility] Jan 06, 2025 12:00 AM Laboratory - Chemi stry Order OCCULT BLOOD FIT X1 SCREEN STOOL FECES [facility] Feb 20, 2025 12:00 AM Laboratory - Chemi stry Order VITAMIN D, 25-HYDROXY GOLD/RED SST SERUM [facility] Feb 20, 2025 12:00 AM Laboratory - Chemi stry Order TESTOSTERONE, TOTAL (PB-MA) GOLD/RED SST SERUM [facility] Lab Results: +/- 30 days of the encounter This section includes the Chemistry and Hematology Lab Results on record with [place] for the patient. Radiology Reports and Pathology Reports are provided separately, in subsequent sections. Lab Results This section contains the Chemistry/Hematology Results that were resulted 30 days before or 30 daysafter the date of the Encounter. Date/Time Source Result Type Result - Unit Interpretation Reference Range Specimen Type Comment Jan 06, 2025 01:43 PM [facility] HGA1C BLOOD Specimen Type: BLOOD No comment entered. Ordering Provider: IRVING KIRKPATRICK Report Released Date/Time: Jan 05, 2025 12:48 PM Reporting Lab: [place] [facility] [address] [place] [address] Performing Lab: [place] [facility] [address] [place] [address] HGA1C 9.6 H 4.0-6.0 Jan 06, 2025 01:43 PM [facility] [place] [facility] BASIC METABOLIC PANEL PLASMA Specimen Type: PL ASMA No comment entered. Ordering Provider: IRVING KIRKPATRICK Report Released Date/Time: Jan 05, 2025 12:48 PM Reporting Lab: [place] [facility] [address] [place] [address] Performing Lab: [place] [facility] [address] [place] [phone] CREATININE 0.80 mg/dL 0.7-1.3 UREA NITROGEN 8 [...] and tobacco- related health factors from the [place] facility where the Encounter took place. Current Smoking Status This section includes the most current smoking, or tobacco-related health factor, from the [place] facility where the Encounter took place. Date/Time Current Smoking Status Comment Dru linda Sep 17, 2024 11:09 AM VA-TOBACCO USE DEEPA E DAYS CIGARETTES [facility] Tobacco Use History This section includes a history of the smoking, or tobacco-related health factors, that were collected on or before the date of the Encounter. The data comes from the [place] facility where the Encounter took place. Date/Time Smoking Status/Tobacco Use Comment Kami daniels Sep 17, 2024 11:09 AM VA-TOBACCO USE DEEPA E DAYS CIGARETTES [facility] Sep 10, 2023 02:39 PM VA-TOBACCO DOESNT USE WI [address] 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 Date/Time Encounter Note(s) Provider Source Jan 22, 2025 09:58 AM NONVA NOTE: [facility] TITLE: COMMUNITY CARE-CARE COORDINATION PLAN NOTE 657A4 PB STANDARD TITLE: NONVA NOTE DATE OF NOTE: JAN 22, 2025@09:58 ENTRY DATE: JAN 22, 2025@09:58:59 AUTHOR: HEATHER VEE COSIGNER: URGENCY: STATUS: COMPLETED Community Care Consult: Emergency Room Consult No: [id number] [facility] Referral #: [id number] Chief Complaint: Lower Ext Injury/ Pain in blt calves Patient Admitted? No Level of Care Coordination Urgent Care Coordination was determined from: Chart Review PER ER Notes 01/20/2025 Disposition: Discharge Home Patient is a 44-year-old diabetic, obese, hypertensive, nicotine user, with negative ultrasound for DVT. Pain has been the last 2 days. Suspect this is similar to claudication symptoms. Posterior tibialis is difficult to find. I do suspect component of peripheral arterial disease but does have facet claudication. Given these changes, I would pretreat with clopidogrel, and plan on follow-up outpatient with primary care physician as soon as possible for possible DEMI, and arterial duplex. Discussed with patient. He has a follow-up tomorrow, and can arrange his arterial duplex and DEMI through the [place]. Since this is not an emergency issue, this would be better that it was managed on outpatient basis. As well, patient can give feedback regarding his clopidogrel use in the interim. I have given him a hard prescription so he could fill this at the NH. Clinical Impression: Claudication of both lower extremities New Med: Clopidogrel 75mg tablet PO daily. Qty: 30 Follow up with PCP Dr Kuzas Resume usual activity DC Instructions: Activity Restrictions/Additional Instructions: Call your [facility] doctor for appointment follow-up. As we discussed, you will need an arterial ultrasound and possibly an DEMI. This is to assess your lower extremities for arterial flow. You have been placed on clopidogrel in the interim of your follow-up to both give your physician feedback, and treatment for peripheral arterial disease. As we discussed, caution on nicotine intake. Limit any cigarette smoking/vaping. Patches would be best, however lozenges would be appropriate. Return to ED if you have ulcers developing or call your physician immediately, fever, chills, fever greater than 100.4 ?F. (ED Provider:Dinana WISE) Episode of Care Complete. Signed ER Report sent to [facility] for scanning. Alerting PACT team for review /walt/ HEATHER VEE RN [facility] Signed: 01/22/2025 10:04 Receipt Acknowledged By: * AWAITING SIGNATURE * AMOS PAREDES 01/22/2025 16:16 /es/ IRENA HALL, WADE HOOSICK CB 01/25/2025 07:22 /es/ TAYLOR VILLALBAN,RN * AWAITING SIGNATURE * THOMAS BLACK * AWAITING SIGNATURE * FARA HIGGINBOTHAM ANGELA A [place] [facility]
--- OUTSIDE RECORDS SUMMARY | 2025-01-22 09:40 | XMS_ITS | Encounter Summary ---
Author Name [facility] [place] [facility] [place] Address [address] [place] [address] Care Team Providers Care Die Casting Machine Maintainer Name Role Phone THOMAS BLACK Primary Care Provider Unavailabl e Selected Encounter This section includes the information on record at [place] for the Encounter. Date/Time Encounter Type Encounter Description Reason Pro vider Source Jan 22, 2025 02:40 PM Outpatient Encounter ADMIN PAT ACTIVTIES (MASNONCT) IHE Encounter Template Text not used by [place] Plan of Treatment: Future Appointments (+ 6 months) and Future Tests (+/- 45 days) The Plan of Treatment section includes future care activities for the patient from all [place] treatmentfacilities. This section includes future appointments and future orders which are active, pending or scheduled. Future Appointments This section includes appointments that were scheduled to occur 6 months from the date of the Encounter, up to a maximum of 20 appointments. The data comes from all [place] treatment facilities. Appointment Date/Time Appointment Type Appointme nt Facility Name Jan 26, 2025 09:00 AM [facility] MED[facility]INE [facility] Feb 02, 2025 09:40 AM [facility] - MEDIC[facility] Feb 02, 2025 01:00 PM [facility] Feb 09, 2025 09:00 AM [facility] MEDICINE [facility] Feb 19, 2025 09:20 AM [facility] - MEDICINE [facility] Feb 22, 2025 08:30 AM [facility]ORY MEDICINE [facility] Feb 22, 2025 08:31 AM [facility] Feb 24, 2025 01:20 PM AMBULATORY MEDICINE [facility] Mar 09, 2025 10:00 AM [facility]ORY [facility] Mar 23, 2025 09:[address] [facility] Apr 06, 2025 08:[address] [facility] Apr 20, 2025 08:40 AM [facility] May 04, 2025 09:[address] [facility] Jul 20, 2025 09:30 AM [facility] Active, Pending, and Scheduled Orders This section includes a listing of several types of active, pending, and scheduled orders, including clinic medications orders, diagnostic test orders, procedure orders and consult orders; where the start date of the order is 45 days before the date of the Encounter or 45 days after the date of theEncounter. The data comes from all [place] treatment facilities. Test Date/Time Test Type Test Details Facility Name Jan 05, 2025 08:39 AM Consult Order PROSTHETIC S REQUEST - FLOW SHOES AND INSERTS [id number] Cons Import Customs Clearing Agent's Choice [facility] Jan 06, 2025 12:00 AM Laboratory - Chemi stry Order OCCULT BLOOD FIT X1 SCREEN STOOL FECES [facility] Feb 20, 2025 12:00 AM Laboratory - Chemi stry Order VITAMIN D, 25-HYDROXY GOLD/RED SST SERUM [facility] Feb 20, 2025 12:00 AM Laboratory - Chemi stry Order TESTOSTERONE, TOTAL (PB-MA) GOLD/RED SST SERUM [facility] Lab Results: +/- 30 days of the encounter This section includes the Chemistry and Hematology Lab Results on record with [place] for the patient. Radiology Reports and Pathology Reports are provided separately, in subsequent sections. Lab Results This section contains the Chemistry/Hematology Results that were resulted 30 days before or 30 daysafter the date of the Encounter. Date/Time Source Result Type Result - Unit Interpretation Reference Range Specimen Type Comment Jan 06, 2025 01:43 PM [facility] HGA1C BLOOD Specimen Type: BLOOD No comment entered. Ordering Provider: IRVING KIRKPATRICK Report Released Date/Time: Jan 05, 2025 12:48 PM Reporting Lab: [place] [facility] [address] [place] [address] Performing Lab: [place] [facility] [address] [place] [address] HGA1C 9.6 H 4.0-6.0 Jan 06, 2025 01:43 PM [facility] [place] [facility] BASIC METABOLIC PANEL PLASMA Specimen Type: PL ASMA No comment entered. Ordering Provider: IRVING KIRKPATRICK Report Released Date/Time: Jan 05, 2025 12:48 PM Reporting Lab: [place] [facility] [address] [place] [address] Performing Lab: [place] [facility] [address] [place] [address] CREATININE 0.80 mg/dL 0.7-1.3 UREA NITROGEN 8 [...] and tobacco- related health factors from the [place] facility where the Encounter took place. Current Smoking Status This section includes the most current smoking, or tobacco-related health factor, from the [place] facility where the Encounter took place. Date/Time Current Smoking Status Comment Dru ity Sep 17, 2024 11:09 AM VA-TOBACCO USE DEEPA E DAYS CIGARETTES [facility] Tobacco Use History This section includes a history of the smoking, or tobacco-related health factors, that were collected on or before the date of the Encounter. The data comes from the [place] facility where the Encounter took place. 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 Date/Time Encounter Note(s) Provider Source Jan 22, 2025 02:40 PM ADMINISTRATIVE NOT E: LOCAL TITLE: ADMINISTRATIVE NOTE PB STANDARD TITLE: ADMINISTRATIVE NOTE DATE OF NOTE: JAN 22, 2025@14:40 ENTRY DATE: JAN 22, 2025@14:40:21 AUTHOR: YUSUF SEYMOUR EXP COSIGNER: URGENCY: STATUS: COMPLETED Attempted to contact to schedule MRTC series for PB-JANN CHIRO with starting PID of 02/02/2025 {appts: 6; Interval: 7}. Unable to contact via phone, left VM and mailed letter. /walt/ YUSUF SEYMOUR [facility] Signed: 01/22/2025 14:42 YUSUF SEYMOUR [facility]
--- OUTSIDE RECORDS SUMMARY | 2025-01-25 08:19 | XMS_ITS | Continuity of Care Document ---
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 CYSTATIN C (2011) 72.8 60 11/03 Specimen Type: PLASMA Comment: Choice of which of the reported eGFR values to use depends on the clinical situation. For example, for patients with severe muscle wasting or reduced muscle mass, eGFR calculated using the 2011 cystatin equation may be preferred. Ordering Provider: THOMAS BLACK Report Released Date/Time: October 23, 2024 02:53 PM Reporting Lab: [place] [address] [facility] [address] Performing Lab: [address] [id number] [place] [address] CYSTATIN C EGFR PANELS (L-PB-M A) CKD-EPI [...] October 23, 2024 02:53 PM Reporting Lab: [facility] [address] [place] [address] Performing Lab: [address] [address] [facility] CYSTATIN C EGFR PANELS (STL-PB-M A) CREATININE [MASS/VOLUM E] IN SERUM OR [...] October 23, 2024 02:53 PM Reporting Lab: [facility] [address] [facility] [address] Performing Lab: [facility] [address] [facility] [address] [place] [facility] HGA1C HEMOGLOBIN A1C/HEMOGLO BIN.TOTAL IN BLOOD 11.3 4.0 - 6.0 11/03 H Specimen Type: BLOOD No comment entered. Ordering Provider: THOMAS BLACK Report Released Date/Time: October 23, 2024 02:50 PM Reporting Lab: [place] [facility] [address] [place] [phone] Performing Lab: [place] [facility] [address] [place] [address] [place] [facility] URINE ALBUMIN PROFILE-i h (PB) ALBUMIN [MASS/VOLUM E] IN URINE 62.05 mg/L 11/03 Specimen Type: URINE No comment entered. Ordering Provider: THOMAS BLACK Report Released Date/Time: October 23, 2024 02:50 PM Reporting Lab: [place] [facility] [address] [place] [id number] Performing Lab: [place] [facility] [address] [place] [address] [place] [facility] URINE ALBUMIN PROFILE-i h (PB) ALBUMIN/CRE ATININE [MASS RATIO] IN URINE 46.31 mg/g 0 - 30 11/03 H Specimen Type: URINE No comment entered. Ordering Provider: THOMAS BLACK Report Released Date/Time: October 23, 2024 02:50 PM Reporting Lab: [place] [facility] [address] [place] [address] Performing Lab: [place] [facility] [address] [place] [address] [facility] URINE ALBUMIN PROFILE-i h (PB) CREATININE [MASS/VOLUM E] IN URINE 133.99 mg/dL 11/03 Specimen Type: URINE No comment entered. Ordering Provider: THOMAS BLACK Report Released Date/Time: October 23, 2024 02:50 PM Reporting Lab: [place] [facility] [address] [place] [address] Performing Lab: [place] [facility] [address] [place] [address] [facility] CHOLESTER OL PANEL (PB) CHOLESTEROL [MASS/VOLUM E] IN SERUM OR PLASMA 185 mg/dL 0 - 200 11/03 Specimen Type: PLASMA Comment: LDL calculation invalid when Triglycerid e exceeds 250 mg/dl Ordering Provider: THOMAS BLACK Report Released Date/Time: October 23, 2024 02:50 PM Reporting Lab: [place] [facility] [address] [place] [address] Performing Lab: [place] [facility] [address] [place] [address] [place] [facility] CHOLESTER OL PANEL (PB) TRIGLYCERID E [MASS/VOLUM E] IN SERUM OR PLASMA 293 mg/dL 0 - 150 11/03 H Specimen Type: PLASMA Comment: LDL calculation invalid when Triglycerid e exceeds 250 mg/dl Ordering Provider: THOMAS BLACK Report Released Date/Time: October 23, 2024 02:50 PM Reporting Lab: [place] [facility] [address] [place] [address] Performing Lab: [place] [facility] [address] [place] [address] [facility] [facility] [facility] CHOLESTER OL PANEL (PB) CHOLESTEROL IN LDL [MASS/VOLUM E] IN SERUM OR PLASMA BY CALCULATION commen tmg/dL 11/03 Specimen Type: PLASMA Comment: LDL calculation invalid when Triglycerid e exceeds 250 mg/dl Ordering Provider: THOMAS BLACK Report Released Date/Time: October 23, 2024 02:50 PM Reporting Lab: [place] [facility] [address] [place] [address] Performing Lab: [place] [facility] [address] [place] [address] [facility] CHOLESTER OL PANEL (PB) CHOLESTEROL IN HDL [MASS/VOLUM E] IN SERUM OR PLASMA 42.0 mg/dL 40 11/03 H Specimen Type: PLASMA Comment: LDL calculation invalid when Triglycerid e exceeds 250 mg/dl Ordering Provider: THOMAS BLACK Report Released Date/Time: October 23, 2024 02:50 PM Reporting Lab: [place] [facility] [address] [place] [address] Performing Lab: [place] [facility] [address] [place] [address] [facility] [facility] [facility] CHOLESTER OL PANEL (PB) CHOLESTEROL IN HDL/CHOLEST TING.TOTAL [MASS RATIO] IN SERUM OR PLASMA 22.7 25 11/03 Specimen Type: PLASMA Comment: LDL calculation invalid when Triglycerid e exceeds 250 mg/dl Ordering Provider: THOMAS BLACK Report Released Date/Time: October 23, 2024 02:50 PM Reporting Lab: [place] [facility] [address] [place] [address] Performing Lab: [place] [facility] [address] [place] [address] [facility] CHOLESTER OL PANEL (PB) CHOLESTEROL IN LDL [MASS/VOLUM E] IN SERUM OR PLASMA BY DIRECT ASSAY 119.9 mg/dL 0 - 99.9 11/03 H Specimen Type: PLASMA Comment: LDL calculation invalid when Triglycerid e exceeds 250 mg/dl Ordering Provider: THOMAS BLACK Report Released Date/Time: October 23, 2024 02:50 PM Reporting Lab: [place] [facility] [address] [place] [address] Performing Lab: [place] [facility] [address] [place] [address] [facility] [facility] MAGNESIUM MAGNESIUM [MASS/VOLUM E] IN SERUM OR PLASMA 1.69 mg/dL 1.6 - 2.6 11/03 Specimen Type: PLASMA Comment: LDL calculation invalid when Triglycerid e exceeds 250 mg/dl Ordering Provider: THOMAS BLACK Report Released Date/Time: October 23, 2024 02:50 PM Reporting Lab: [place] [facility] [address] [place] [address] Performing Lab: [place] [facility] [address] [place] [address] [facility] [facility] COMPREHEN SIVE METABOLIC PANEL CREATININE [MASS/VOLUM E] IN SERUM OR PLASMA 0.75 mg/dL 0.7 - 1.3 11/03 Specimen Type: PLASMA Comment: LDL calculation invalid when Triglycerid e exceeds 250 mg/dl Ordering Provider: THOMAS BLACK Report Released Date/Time: October 23, 2024 02:50 PM Reporting Lab: [place] [facility] [address] [place] [address] Performing Lab: [place] [facility] [address] [place] [address] [facility] [facility] [facility] COMPREHEN SIVE METABOLIC PANEL UREA NITROGEN [MASS/VOLUM E] IN SERUM OR PLASMA 11 mg/dL 9 - 25 11/03 Specimen Type: PLASMA Comment: LDL calculation invalid when Triglycerid e exceeds 250 mg/dl Ordering Provider: THOMAS BLACK Report Released Date/Time: October 23, 2024 02:50 PM Reporting Lab: [place] [facility] [address] [place] [address] Performing Lab: [place] [facility] [address] [place] [address] [facility] [facility] COMPREHEN SIVE METABOLIC PANEL GLUCOSE [MASS/VOLUM E] IN SERUM OR PLASMA 296 mg/dL 72 - 99 11/03 H Specimen Type: PLASMA Comment: LDL calculation invalid when Triglycerid e exceeds 250 mg/dl Ordering Provider: THOMAS BLACK Report Released Date/Time: October 23, 2024 02:50 PM Reporting Lab: [place] [facility] [address] [place] [address] Performing Lab: [place] [facility] [address] [place] [address] [facility] [facility] COMPREHEN SIVE METABOLIC PANEL SODIUM [MOLES/VOLU ME] IN SERUM OR PLASMA 139 meq/L 136 - 145 11/03 Specimen Type: PLASMA Comment: LDL calculation invalid when Triglycerid e exceeds 250 mg/dl Ordering Provider: THOMAS BLACK Report Released Date/Time: October 23, 2024 02:50 PM Reporting Lab: [place] [facility] [address] [place] [address] Performing Lab: [place] [facility] [address] [place] [address] [place] [facility] COMPREHEN SIVE METABOLIC PANEL POTASSIUM [MOLES/VOLU ME] IN SERUM OR PLASMA 3.7 meq/L 3.5 - 5 11/03 Specimen Type: PLASMA Comment: LDL calculation invalid when Triglycerid e exceeds 250 mg/dl Ordering Provider: THOMAS BLACK Report Released Date/Time: October 23, 2024 02:50 PM Reporting Lab: [place] [facility] [address] [place] [address] Performing Lab: [place] [facility] [address] [place] [address] [place] [facility] COMPREHEN SIVE METABOLIC PANEL CHLORIDE [MOLES/VOLU ME] IN SERUM OR PLASMA 103 meq/L 98 - 107 11/03 Specimen Type: PLASMA Comment: LDL calculation invalid when Triglycerid e exceeds 250 mg/dl Ordering Provider: THOMAS BLACK Report Released Date/Time: October 23, 2024 02:50 PM Reporting Lab: [place] [facility] [address] [place] [address] Performing Lab: [place] [facility] [address] [place] [address] [place] [facility] COMPREHEN SIVE METABOLIC PANEL CARBON DIOXIDE, TOTAL [MOLES/VOLU ME] IN SERUM OR PLASMA 24 meq/L 22 - 31 11/03 Specimen Type: PLASMA Comment: LDL calculation invalid when Triglycerid e exceeds 250 mg/dl Ordering Provider: THOMAS BLACK Report Released Date/Time: October 23, 2024 02:50 PM Reporting Lab: [place] [facility] [address] [place] [address] Performing Lab: [place] [facility] [address] [place] [address] [place] [facility] COMPREHEN SIVE METABOLIC PANEL CALCIUM [MASS/VOLUM E] IN SERUM OR PLASMA 9.1 mg/dL 8.4 - 10.4 11/03 Specimen Type: PLASMA Comment: LDL calculation invalid when Triglycerid e exceeds 250 mg/dl Ordering Provider: THOMAS BLACK Report Released Date/Time: October 23, 2024 02:50 PM Reporting Lab: [place] [facility] [address] [place] [address] Performing Lab: [place] [facility] [address] [place] [address] [place] [facility] COMPREHEN SIVE METABOLIC PANEL PROTEIN [MASS/VOLUM E] IN SERUM OR PLASMA 7.1 g/dL 6 - 8.6 11/03 Specimen Type: PLASMA Comment: LDL calculation invalid when Triglycerid e exceeds 250 mg/dl Ordering Provider: THOMAS BLACK Report Released Date/Time: October 23, 2024 02:50 PM Reporting Lab: [place] [facility] [address] [place] [address] Performing Lab: [place] [facility] [address] [place] [address] [place] [facility] COMPREHEN SIVE METABOLIC PANEL ALBUMIN [MASS/VOLUM E] IN SERUM OR PLASMA 4.2 g/dL 3.4 - 5 11/03 Specimen Type: PLASMA Comment: LDL calculation invalid when Triglycerid e exceeds 250 mg/dl Ordering Provider: THOMAS BLACK Report Released Date/Time: October 23, 2024 02:50 PM Reporting Lab: [place] [facility] [address] [place] [address] Performing Lab: [place] [facility] [address] [place] [address] [place] [facility] COMPREHEN SIVE METABOLIC PANEL BILIRUBIN.T OTAL [MASS/VOLUM E] IN SERUM OR PLASMA 0.6 mg/dL 0.2 - 1.2 11/03 Specimen Type: PLASMA Comment: LDL calculation invalid when Triglycerid e exceeds 250 mg/dl Ordering Provider: THOMAS BLACK Report Released Date/Time: October 23, 2024 02:50 PM Reporting Lab: [place] [facility] [address] [place] [address] Performing Lab: [place] [facility] [address] [place] [address] [place] [facility] COMPREHEN SIVE METABOLIC PANEL ALKALINE PHOSPHATASE [ENZYMATIC ACTIVITY/VO LUME] IN SERUM OR PLASMA 100 U/L 40 - 150 11/03 Specimen Type: PLASMA Comment: LDL calculation invalid when Triglycerid e exceeds 250 mg/dl Ordering Provider: THOMAS BLACK Report Released Date/Time: October 23, 2024 02:50 PM Reporting Lab: [place] [facility] [address] [place] [address] Performing Lab: [place] [facility] [address] [place] [address] [place] [facility] COMPREHEN SIVE METABOLIC PANEL ASPARTATE AMINOTRANSF ERASE [ENZYMATIC ACTIVITY/VO LUME] IN SERUM OR PLASMA 30 U/L 5 - 34 11/03 Specimen Type: PLASMA Comment: LDL calculation invalid when Triglycerid e exceeds 250 mg/dl Ordering Provider: THOMAS BLACK Report Released Date/Time: October 23, 2024 02:50 PM Reporting Lab: [place] [facility] [address] [place] [address] Performing Lab: [place] [facility] [address] [place] [address] [place] [facility] COMPREHEN SIVE METABOLIC PANEL ALANINE AMINOTRANSF ERASE [ENZYMATIC ACTIVITY/VO LUME] IN SERUM OR PLASMA 41 U/L 8 - 40 11/03 H Specimen Type: PLASMA Comment: LDL calculation invalid when Triglycerid e exceeds 250 mg/dl Ordering Provider: THOMAS BLACK Report Released Date/Time: October 23, 2024 02:50 PM Reporting Lab: [place] [facility] [address] [place] [address] Performing Lab: [place] [facility] [address] [place] [address] [place] [facility] COMPREHEN SIVE METABOLIC PANEL GLOMERULAR FILTRATION RATE/1.73 SQ M.PREDICTED [VOLUME RATE/AREA] IN SERUM, PLASMA OR BLOOD BY CREATININE- BASED FORMULA (CKD-EPI 2020) 113 11/03 Specimen Type: PLASMA Comment: LDL calculation invalid when Triglycerid e exceeds 250 mg/dl Ordering Provider: THOMAS BLACK Report Released Date/Time: October 23, 2024 02:50 PM Reporting Lab: [place] [facility] [address] [place] [address] Performing Lab: [place] [facility] [address] [place] [address] [place] [facility] VITAMIN D, 25-HYDROX Y 25-HYDROXYV ITAMIN D3 [MASS/VOLUM E] IN SERUM OR PLASMA 24.4 ng/mL 30 - 96 11/03 L Specimen Type: SERUM No comment entered. Ordering Provider: THOMAS BLACK Report Released Date/Time: October 23, 2024 02:50 PM Reporting Lab: [place] [facility] [address] [place] [address] Performing Lab: [place] [facility] [address] [place] [address] [place] [facility] Vital Signs Combined list of inpatient and outpatient Vital Signs from Department of Defense and Veterans Affairs, ranging from 12 months to all on record, depending upon the facility. Vital Sign Value Date Comments Source SYSTOLIC BLOOD PRESSURE 144 01/21/2025 15:20:00 [facility] DIASTOLIC BLOOD PRESSURE 105 01/21/2025 15:20:00 [facility] TEMPERATURE 98.2 01/21/2025 15:20:00 [facility] PULSE 86 01/21/2025 15:20:00 [facility] SYSTOLIC BLOOD PRESSURE 133 01/20/2025 14:08:00 [facility] DIASTOLIC BLOOD PRESSURE 88 01/20/2025 14:08:00 [facility] TEMPERATURE 98 01/20/2025 14:08:00 [facility] PULSE 84 01/20/2025 14:08:00 [facility] SYSTOLIC BLOOD PRESSURE 130 01/12/2025 08:20:00 [facility] DIASTOLIC BLOOD PRESSURE 91 01/12/2025 08:20:00 [facility] TEMPERATURE 98.4 01/12/2025 08:20:00 [place] [place] PULSE 82 01/12/2025 08:20:00 [place] [place] SYSTOLIC BLOOD PRESSURE 119 01/06/2025 14:57:05 [facility] [place] DIASTOLIC BLOOD PRESSURE 83 01/06/2025 14:57:05 [facility] [place] [facility] PULSE OXIMETRY 97 % 01/06/2025 14:57:[address] [facility] WEIGHT 392.1 01/06/2025 14:57:05 [place] [place] [facility] BMI 56 kg/m2 01/06/2025 14:57:05 [facility] PAIN 5 01/06/2025 14:57:05 [facility] TEMPERATURE 97.6 01/06/2025 14:57:05 [facility] PULSE 88 01/06/2025 14:57:05 [facility] RESPIRATION 20 01/06/2025 14:57:05 [facility] SYSTOLIC BLOOD PRESSURE 128 11/20/2024 08:40:35 [facility] [place] [facility] DIASTOLIC BLOOD PRESSURE 89 11/20/2024 08:40:35 [facility] PULSE OXIMETRY 97 % 11/20/2024 08:40:[address] [facility] WEIGHT 393.5 11/20/2024 08:40:35 [facility] BMI 57 kg/m2 11/20/2024 08:40:35 [facility] PAIN 5 11/20/2024 08:40:35 [facility] TEMPERATURE 98.4 11/20/2024 08:40:35 [facility] PULSE 82 11/20/2024 08:40:35 [place] [place] [facility] RESPIRATION 20 11/20/2024 08:40:35 [facility] Encounters Combined list of: 1) Encounters from Department of Veterans Affairs facilities going backup to the last 18 months, not all VA inpatient encounters are included; 2) Encounters from the Department of Defense facilities going backup to 280 months. Location Location Details Encounter Type Encounter Number Reason For Visit Attending Provider ADM Date DC Date Status Disposition Source [facility] PSYTX W PT 60 MINUTES [id number] Diagnos is: ICD-10- CM F33.1 Major depress padmini disorde r, recurre nt, moderat e MARCELO,CHR ISSOM J 07/31 [facility] Outpatient Encounter [id number] 08/01 [facility] [id number] Diagnos is: ICD-10- CM E11.65 Type 2 diabete s mellitu s with hypergl ycemia Ashish VALVERDE TAYLOR W 08/07 [facility] Outpatient Encounter [id number] 08/14 [facility] Outpatient Encounter [id number] 08/18 [facility] Outpatient Encounter [id number] 08/20 [facility] Outpatient Encounter [id number] 08/25 [facility] Outpatient Encounter [id number] 08/[address] [facility] Outpatient Encounter [id number] Diagnos is: ICD-10- CM E11.65 Type 2 diabete s mellitu s with hypergl ycemia Ashish VALVERDE TAYLOR W 08/29 [facility] [place] [facility] QNHP OL DIG ASSMT&MGMT 11 [id number] Diagnos is: ICD-10- CM E11.65 Type 2 diabete s mellitu s with hypergl ycemia TRUMAN ZULY R 08/29 [place] [facility] Outpatient Encounter [id number] 09/[address] [facility] OFF/OP EST MAY X REQ PHY/QHP [id number] Diagnos is: ICD-10- CM M25.552 Pain in left hip Ashish COATES 09/03 [facility] OFFICE O/P EST LOW 20 MIN [id number] Diagnos is: ICD-10- CM S76.012 A Strain of muscle, fascia and tendon of left hip, init encntr TRENT MAGAÑA G 09/03 [facility] Outpatient Encounter [id number] HILARY DELGADO M 09/[address] [facility] Outpatient Encounter [id number] Diagnos is: ICD-10- CM E11.65 Type 2 diabete s mellitu s with hypergl ycemia Ashish VALVERDE W 09/09 [facility] [place] [facility] QNHP OL DIG ASSMT&MGMT 5-10 [id number] Diagnos is: ICD-10- CM E11.65 Type 2 diabete s mellitu s with hypergl ycemia JANUARY,SHIREEN V 09/10 [place] [facility] OFFICE O/P EST LOW 20 MIN [id number] Diagnos is: ICD-10- CM F31.9 Bipolar disorde r, unspeci fied OMAR BLEVINS R 09/10 [facility] Outpatient Encounter [id number] 09/[address] [facility] OFFICE O/P EST LOW 20 MIN [id number] Diagnos is: ICD-10- CM K21.9 Gastro- esophag eal reflux disease without esophag itTHOMAS Redman 09/19 [facility] Outpatient Encounter [id number] 09/[address] [facility] Outpatient Encounter [id number] 09/24 [facility] Outpatient Encounter [id number] 09/24 [facility] Outpatient Encounter [id number] Diagnos is: ICD-10- CM E11.65 Type 2 diabete s mellitu s with hypergl ycemia Ashish VALVERDE W 09/24 [facility] Outpatient Encounter [id number] 09/[address] [facility] PSYTX W PT 60 MINUTES [id number] [id number] Diagnos is: ICD-10- CM F33.1 Major depress padmini disorde r, recurre nt, moderat e SHAWN WRAY P 09/25 [facility] Outpatient Encounter [id number] 09/29 [facility] [place] [facility] Outpatient Encounter [id number] 09/29 [place] [facility] Outpatient Encounter [id number] 09/30 [facility] Outpatient Encounter [id number] [id number] 10/01 [facility] Outpatient Encounter 84886-1.65 [id number] 10/[address] [facility] Outpatient Encounter 66320-9.65 [id number] 10/[address] [facility] Outpatient Encounter 13318-5.65 [id number] 10/[address] [facility] Outpatient Encounter 79355-7.65 [id number] 5 10/[address] [facility] Outpatient Encounter 37990-8.65 [id number] 2 10/13 [facility] OFFICE O/P EST HI 40 MIN 77921-5.65 [id number] 147 Diagnos is: ICD-10- CM F33.1 Major depress padmini disorde r, recurre nt, moderat e THOMAS BLACK 10/24 [facility] Outpatient Encounter 91950-2.65 [id number] 1 10/[address] [facility] Outpatient Encounter 72875-8.65 [id number] 1 10/29 [facility] MTMS BY PHARM ADDL 15 MIN 89927-3.65 [id number] 957 Diagnos is: ICD-10- CM E11.65 Type 2 diabete s mellitu s with hypergl ycemia Ashish VALVERDE 10/31 [facility] Outpatient Encounter 08145-1.65 [id number] 601 11/06 [facility] Outpatient Encounter 43711-5.65 [id number] 11/[address] 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 PSYTX W PT 60 MINUTES 27027-7.65 [id number].[id number] 014 Diagnos is: ICD-10- CM F33.1 Major depress padmini disorde r, recurre nt, moderat e SHAWN WRAY P 11/25 [facility] Outpatient Encounter 36017-7.65 [id number] 3 11/26 [facility] N [facility] Outpatient Encounter 73082-2.65 [id number] 0 12/30 [facility] PT 60 MINUTES 98697-1.65 [id number] Diagnos is: ICD-10- CM F33.1 Major depress padmini disorde r, recurre nt, moderat e WRAYSHAWN P 12/31 [facility] Outpatient Encounter 62547-1.65 [id number] 8 01/12 [facility] Outpatient Encounter 65263-4.65 [id number] 1 HUMZA CUNNINGHAM J 01/[address] [facility] MTMS BY PHARM ADDL 15 MIN 33885-3.65 [id number] 830 Diagnos is: ICD-10- CM E11.65 Type 2 diabete s mellitu s with hypergl ycemia Ashish VALVERDE W 01/16 [facility] Outpatient Encounter 67087-2.65 [id number] 01/[address] [facility] FEE 60693-7.65 [id number].[id number] 805 Diagnos is: ICD-10- CM Z02.89 Encount er for other adminis trative examina tions TAZ DINH 01/22 [facility] Outpatient Encounter 40193-9.65 [id number] 669 Diagnos is: ICD-10- CM Z02.89 Encount er for other adminis trative examina tions TAZ DINH 01/22 [facility] Outpatient Encounter 21737-4.65 [id number] 509 Diagnos is: ICD-10- CM Z02.89 Encount er for other adminis trative examina tions AYAN ARVIZU 02/05 [facility] 58763-4.65 [id number] 02/07 [facility] Outpatient Encounter 75641-4.65 [id number] 0 ROSSANA PEÑA RIL L 02/09 [facility] N [facility] Outpatient Encounter 04467-9.65 [id number] ROSSANA PEÑA RIL L 02/13 [facility] Outpatient Encounter 07376-3.65 [id number] 1 02/[address] [facility] OFF/OP EST OCTOBER X REQ PHY/QHP 01462-8.65 [id number] 010 Diagnos is: ICD-10- CM H60.501 Unspeci fied acute noninfe ctive otitis externa , right ear LINDEN HOPKINS 02/23 [facility] PSYTX W PT 60 MINUTES 78886-1.65 [id number] 180 Diagnos is: ICD-10- CM F33.1 Major depress padmini disorde r, recurre nt, moderat e SHAWN WRAY P 03/09 [facility] Outpatient Encounter 42955-6.65 [id number] 2 03/[address] [facility] Outpatient Encounter 38421-8.65 [id number] 03/[address] [facility] Outpatient Encounter 45004-4.65 [id number] 2 ROSSANA PEÑA RIL L 03/17 [facility] [place] [facility] PSYTX W PT 30 MINUTES 41668-9.65 [id number] 215 Diagnos is: ICD-10- CM F10.20 Alcohol depende nce, uncompl icated MARLA TERRELL D 03/17 [place] [facility] OFF/OP EST MAY X REQ PHY/QHP 16340-9.65 [id number] 829 Diagnos is: ICD-10- CM M25.562 Pain in left knee CAMPBELL GUTIÉRREZ D 03/17 [facility] Outpatient Encounter 85478-3.65 [id number] HILARY DELGADO M 03/20 [facility] [place] [facility] PT EDUCATION NOC GROUP 23348-8.65 [id number] 808 Diagnos is: ICD-10- CM F10.11 Alcohol abuse, in remissi on Lori ZARATE T 03/23 [place] [facility] [place] [facility] Outpatient Encounter 70449-2.65 [id number] 144 MAKI RAI P 03/23 [place] [facility] [place] [facility] GROUP PSYCHOTHER APY 73204-1.65 [id number] 621 Diagnos is: ICD-10- CM F10.94 Alcohol use, unspeci fied with alcohol -induce d mood disorde r MAKI RAI P 03/23 [place] [facility] [place] [facility] Outpatient Encounter 13670-9.65 [id number] MAKI RAI P 03/23 [place] [facility] OFFICE O/P EST LOW 20 MIN 05431-4.65 [id number] 578 Diagnos is: ICD-10- CM F31.9 Bipolar disorde r, unspeci fied OMAR BLEVINS 03/23 [facility] [place] [facility] GROUP PSYCHOTHER APY 42888-0.65 [id number] 703 Diagnos is: ICD-10- CM F10.11 Alcohol abuse, in remissi on Lori ZARATE SAMIRA T 03/24 [place] [facility] [place] [facility] GROUP PSYCHOTHER APY 77856-765 [id number] 485 Diagnos is: ICD-10- CM F10.94 Alcohol use, unspeci fied with alcohol -induce d mood disorde r Lori ZARATE T 03/25 [place] [facility] [place] [facility] SELF-HELP/ PEER SVC PER 15MIN 97032-9.65 [id number] 724 Diagnos is: ICD-10- CM F10.94 Alcohol use, unspeci fied with alcohol -induce d mood disorde r Herbie DILLARD ODD A 03/26 [place] [facility] [place] [facility] GROUP PSYCHOTHER APY 29232-465 [id number] 667 Diagnos is: ICD-10- CM F10.94 Alcohol use, unspeci fied with alcohol -induce d mood disorde r MARLA TERRELL D 03/26 [place] [facility] [place] [facility] GROUP PSYCHOTHER APY 06906-965 [id number] 537 Diagnos is: ICD-10- CM F10.94 Alcohol use, unspeci fied with alcohol -induce d mood disorde r Lori ZARATE T 03/27 [place] [facility] [place] [facility] Outpatient Encounter [id number] [id number] 03/30 [place] [facility] Outpatient Encounter 30829-8.65 [id number] 570 03/30 [facility] Outpatient Encounter 83832-2 [id number] 5 03/31 [facility] [place] [facility] Outpatient Encounter [id number] [id number] 173 03/31 [place] [facility] Outpatient Encounter 99432-4 [id number] 7 03/31 [facility] [place] [facility] GROUP PSYCHOTHER APY 88419-6.65 [id number] Diagnos is: ICD-10- CM F10.94 Alcohol use, unspeci fied with alcohol -induce d mood disorde r DURGA ARREGUIN 03/31 [place] [facility] Outpatient Encounter 89093-7.65 [id number] 5 03/31 [facility] Outpatient Encounter 21649-4.65 [id number] 2 04/01 [facility] N [place] [facility] SELF-HELP/ PEER SVC PER 15MIN 43890-0.65 [id number] 307 Diagnos is: ICD-10- CM F10.94 Alcohol use, unspeci fied with alcohol -induce d mood disorde r Herbie DILLARD ODD A 04/02 [place] [facility] [place] [facility] Outpatient Encounter 06449-3.65 [id number] MARLA TERRELL 04/02 [place] [facility] Outpatient Encounter 70680-5.65 [id number] 3 04/03 [facility] Outpatient Encounter 18835-6.65 [id number] 3 ROSSANA PEÑA 04/06 [facility] [place] [facility] Outpatient Encounter 08715-5.65 [id number] 04/06 [place] [facility] [place] [facility] Outpatient Encounter 78196-7.65 [id number] 04/06 [place] [facility] [place] [facility] GROUP PSYCHOTHER APY 92445-4.65 [id number] 911 Diagnos is: ICD-10- CM F10.94 Alcohol use, unspeci fied with alcohol -induce d mood disorde r XANDERMARLA TEJEDA D 04/07 [place] [facility] [place] [facility] PSYTX W PT 30 MINUTES 74810-8.65 [id number] 125 Diagnos is: ICD-10- CM F10.94 Alcohol use, unspeci fied with alcohol -induce d mood disorde r XANDERMARLA TEJEDA D 04/10 [place] [facility] [place] [facility] Outpatient Encounter 05526-4.65 [id number] 04/17 [place] [facility] Outpatient Encounter 12032-6.65 [id number] 2 04/21 [facility] Outpatient Encounter 42540-9.65 [id number] 04/22 [facility] Out[facility] Encounter 77756-8.65 [id number] 1 04/22 [facility] Outpatient Encounter 56714-0.65 [id number] 4 04/24 [facility] Outpatient Encounter 48867-3.65 [id number] 4 05/04 [facility] PSYTX W PT 60 MINUTES 95386-2.65 [id number] 589 Diagnos is: ICD-10- CM F33.1 Major depress padmini disorde r, recurre nt, moderat e SHAWN WRAY P 05/05 [facility] OFF/OP EST OCTOBER X REQ PHY/QHP 43954-0.65 [id number] 117 Diagnos is: ICD-10- CM M25.562 Pain in left knee CUSTRED,TO RRI J 05/05 [facility] Outpatient Encounter 46048-3.65 [id number] 7 05/07 [facility] BY PHARM ADDL 15 MIN 09959-9.65 [id number] 632 Diagnos is: ICD-10- CM E11.65 Type 2 diabete s mellitu s with hypergl ycemia Ashish VALVERDE W 05/12 [facility] [place] [facility] QNHP OL DIG ASSMT&MGMT 5-10 47523-5.65 [id number] 037 Diagnos is: ICD-10- CM E11.65 Type 2 diabete s mellitu s with hypergl ycemia JANUARY,SHIREEN V 05/13 [place] [facility] Outpatient Encounter 78159-6.65 [id number] 5 05/13 [facility] Encounter 83245-5.65 [id number] 9 05/18 [facility] Encounter 18119-7.65 [id number] JOANN REA 05/22 [facility] AD[facility] 15 MIN 34974-6.65 [id number] 788 Diagnos is: ICD-10- CM E11.65 Type 2 diabete s mellitu s with hypergl ycemia Ashish VALVERDE W 05/28 [facility] [place] [facility] Outpatient Encounter 52213-6.65 [id number] 547 ZAID WEN 06/05 [place] [facility] 15 MIN 13558-1.65 [id number].[id number] 062 Diagnos is: ICD-10- CM E11.65 Type 2 diabete s mellitu s with hypergl ycemia Ashish VALVERDE W 06/23 [facility] OFFICE O/P EST LOW 20 MIN 35975-1.65 [id number] 419 Diagnos is: ICD-10- CM F31.76 Bipolar disorde r, in full remis, most recent episode depress OMAR BLEVINS R 06/23 [facility] Outpatient Encounter 90139-9.65 [id number] 06/25 [place] [facility] Outpatient Encounter 54266-8.65 [id number] 06/25 [facility] Outpatient Encounter 09889-3.65 [id number] 06/[address] [facility] MTMS BY PHARM ADDL 15 MIN 80773-2.65 [id number].[id number] 158 Diagnos is: ICD-10- CM E11.65 Type 2 diabete s mellitu s with hypergl ycemia ABRAM,J TAYLOR W 06/30 [facility] PSYTX W PT 60 MINUTES 85487-5.65 [id number].[id number] 518 Diagnos is: ICD-10- CM F33.1 Major depress padmini disorde r, recurre nt, moderat e SHAWN WRAY P 06/30 [facility] Outpatient Encounter 77763-9.65 [id number] 06/30 [facility] Outpatient Encounter 48968-7.65 [id number] 3 07/01 [facility] Outpatient Encounter 28595-1.65 [id number] 2 07/09 [facility] [place] [facility] Outpatient Encounter 68353-9.65 [id number] 07/14 [place] [facility] Outpatient Encounter 57023-1.65 [id number] 5 07/16 [facility] PSYTX W PT 60 MINUTES 91207-8.65 [id number] 532 Diagnos is: ICD-10- CM F33.1 Major depress padmini disorde r, recurre nt, SHAWN Bui P 07/28 [facility] Outpatient Encounter 13944-3.65 [id number] 5 CUSTRED,TO RRI J 08/[address] [facility] Outpatient Encounter 01458-8.65 [id number] 08/[address] [facility] PSYTX W PT 60 MINUTES 50235-4.65 [id number] 086 Diagnos is: ICD-10- CM F33.1 Major depress padmini disorde r, recurre nt, SHAWN Bui P 08/17 [facility] FEE 90252-8.65 [id number] 435 Diagnos is: ICD-10- CM M54.2 Cervica geneia THOMAS BLACK R 08/19 [facility] EST LOW 20 52886-7.65 [id number] 285 Diagnos is: ICD-10- CM M54.2 Cervica lgia THOMAS BLACK R 08/19 [facility] Outpatient Encounter 75758-9.65 [id number] 08/[address] [facility] OFF/OP EST MAY X REQ PHY/QHP 38639-6.65 [id number] 580 Diagnos is: ICD-10- CM R21 Rash and other nonspec ific skin eruptio n CUSTRED,TO RRI J 08/26 [facility] Outpatient Encounter 52073-2.65 [id number] 8 08/27 [facility] N [facility] Outpatient Encounter 66408-6.65 [id number] 4 09/01 [facility] Encounter 18183-5.65 [id number] 7 09/02 [facility] Outpatient Encounter 24036-9.65 [id number] 5 09/06 [facility] Outpatient Encounter 63891-7.65 [id number] 3 ROSSANA PEÑA 09/07 [facility] N [facility] Outpatient Encounter 25416-6.65 [id number] 6 09/10 [facility] Outpatient Encounter 54009-3.65 [id number] 9 09/16 [facility] Outpatient Encounter 11274-3.65 [id number] 9 HILARY DELGADO 09/17 [facility] Outpatient Encounter 66034-4.65 [id number] 09/18 [facility] Outpatient Encounter 18141-9.65 [id number] 6 09/18 [facility] Outpatient Encounter 80531-4.65 [id number] 0 09/21 [facility] OFFICE O/P NEW LOW 30 MIN 08847-2.65 [id number] Diagnos is: ICD-10- CM M54.2 Cervica lgia ANDRE MARTE ASE NICOLLE 09/21 [facility] Outpatient Encounter 49597-3.65 [id number] 6 09/21 [facility] En[facility] 96537-4.65 [id number] 09/23 [facility]P EST MOD 30 MIN 60216-4.65 [id number] 593 Diagnos is: ICD-10- CM F31.76 Bipolar disorde r, in full remis, most recent episode depress OMAR BLEVINS 09/24 [facility] Outpatient Encounter 60488-7.65 [id number] 2 09/25 [facility] [place] [facility] Outpatient Encounter 47115-4.65 [id number] 09/28 [place] [facility] Outpatient Encounter 10927-7.65 [id number] 7 09/[address] [facility] Outpatient Encounter 16476-4.65 [id number] 5 10/02 [facility] CHIROPRACT MANJ XTRSPINL 1/> 03049-1.65 [id number].[id number] 052 Diagnos is: ICD-10- CM M54.59 Other low back pain ANDRE MARTE 10/09 [facility] Outpatient Encounter 46416-5.65 [id number] 3 10/09 [facility] SYNCH AUDIO-ONLY EST SF 10 26889-2.65 [id number] 942 Diagnos is: ICD-10- CM E66.01 Morbid (severe ) obesity due to excess calorie s SARKISJANNATHOMAS Mitchell Madiha 10/09 [facility] Outpatient Encounter 07505-3.65 [id number] 2 10/12 [facility] Outpatient Encounter 86029-8.65 [id number] WALT WHITE R 10/[address] [facility] Outpatient Encounter 10809-4.65 [id number] 5 10/[address] [facility] Outpatient Encounter 76929-2.65 [id number] 10/16 [facility] Outpatient Encounter 04632-3.65 [id number] 3 10/16 [facility] Outpatient Encounter 49156-2.65 [id number] 10/27 [facility] Encounter 10269-0.65 [id number] 868 10/27 [facility] Encounter 21764-8.65 [id number] 5 11/03 [facility] CHIROPRACT MANJ XTRSPINL 1/ 58373-8.65 [id number].[id number] 907 Diagnos is: ICD-10- CM M54.59 Other low back pain ANDRE MARTE 11/06 [facility] Encounter 62876-0.65 [id number] 1 11/11 [facility] OFF/OP EST MAY X REQ PHY/QHP 23900-3.65 [id number].[id number] 605 Diagnos is: ICD-10- CM R60.9 Edema, unspeci fied CUSTRED,TO RRI J 11/17 [facility] OFFICE O/P EST HI 40 MIN 40394-7.65 [id number].[id number] 178 Diagnos is: ICD-10- CM Z00.01 Encount er for general adult medical exam w abnorma l finding s SOFIATHOMAS R 11/20 [facility] Outpatient Encounter 28270-6.65 [id number] 3 HUGH VALENTIN 11/23 [facility] [place] [facility] MTMS BY PHARM ADDL 15 MIN 17807-6.65 [id number] 567 Diagnos is: ICD-10- CM E11.65 Type 2 diabete s mellitu s with hypergl ycemia IRVING KIRKPATRICK 11/23 [facility] [place] [facility] MTMS BY PHARM MACHINE ZIPPER TRIMMER 15 MIN 34222-2.65 [id number] 637 Diagnos is: ICD-10- CM E11.65 Type 2 diabete s mellitu s with hypergl ycemia JANUARY,SHIREEN V 11/24 [place] [facility] Outpatient Encounter 95975-0.65 [id number] 11/25 [facility] CHIROPRACT MANJ XTRSPINL 1/> 77052-3.65 [id number].[id number] 992 Diagnos is: ICD-10- CM M54.59 Other low back pain ANDRE MARTE 11/27 [facility] Outpatient Encounter 79387-4.65 [id number] 7 12/01 [facility] [place] [facility] Outpatient Encounter 14992-0.65 [id number] 922 12/08 [place] [facility] [place] [facility] PH1 ASSMT&MGMT NQHP 5-10 16823-6.65 [id number] 543 Diagnos is: ICD-10- CM 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 MGVU Mahesh 12/08 [place] [facility] PHARM EST 15 MIN 14646-2.65 [id number].[id number] 703 Diagnos is: ICD-10- CM E11.65 Type 2 diabete s mellitu s with hypergl ycemia IRVING KIRKPATRICK 12/14 [place] [facility] Outpatient Encounter 16862-1.65 [id number] 4 ROSSANA PEÑA 12/28 [facility] Outpatient Encounter 06361-4.65 [id number] 5 SANDY MCELROY 12/29 [facility] Outpatient Encounter 70667-6.65 [id number] 2 01/04 [facility] MTMS BY PHARM ADDL 15 MIN 12337-3.65 [id number] 583 Diagnos is: ICD-10- CM E11.65 Type 2 diabete s mellitu s with hypergl ycemia IRVING KIRKPATRICK 01/05 [place] [facility] Outpatient Encounter 30876-5.65 [id number] 3 01/06 [facility] Outpatient Encounter 75662-1.65 [id number] 2 01/06 [facility] FAC[facility] FEE 87167-2.65 [id number] 602 Diagnos is: ICD-10- CM M54.50 Low back pain, unspeci fied KUZAS,THOMAS R 01/06 [facility] OFFICE O/P EST LOW 20 MIN 53261-2.65 [id number] 403 Diagnos is: ICD-10- CM M54.50 Low back pain, unspeci fied THOMAS BLACK R 01/06 [facility] OFF[facility] O/P EST SF 10 MIN [id number] Diagnos is: ICD-10- CM M99.01 Segment al and somatic dysfunc tion of cervica l region NARCISA VARELA E 01/12 [facility] Outpatient Encounter [id number] DANNYHILARY RHODES M 01/18 [facility] A[facility]-VIDE O EST MOD 30 [id number] Diagnos is: ICD-10- CM F43.10 Post-tr aumatic stress disorde r, unspeci OMAR Magallanes R 01/19 [facility] Outpatient Encounter [id number] 01/[address] [facility] OFF/OP EST MAY X REQ PHY/QHP [id number] Diagnos is: ICD-10- CM M79.662 Pain in left lower leg CUSTRED,TO RRI J 01/20 [facility] Outpatient Encounter [id number] 01/20 [facility] Outpatient Encounter [id number] 01/[address] [facility] FEE [id number] Diagnos is: ICD-10- CM H93.13 Tinnitu s, bilater al NGOC,FLACO LELO A 01/21 [facility] [place] XM&SLCTN BINAURL [id number] [id number] Diagnos is: ICD-10- CM H93.13 Tinnitu s, bilater al NGOC,FLACO LELO A 01/21 [place] [facility] [place] MANJ 3-4 [place] [id number] Diagnos is: ICD-10- CM M99.01 Segment al and somatic dysfunc tion of cervica l region NARCISA VARELA 01/21 [facility] Outpatient Encounter [id number] REINA VEE A 01/22 [facility] Outpatient Encounter [id number] 01/22 [facility] Social History Combined list of available smoking, tobacco, and other social history from [facility] of Defense and [facility] facilities. Social History Type Response Date Comment [facility] e Tobacco smoking status IDIS VA-TOBACCO SCREEN FOLLOW-UP 11/20/2024 [facility] History of tobacco use VA-TOBACCO USE ADVICE 11/20/2024 [facility] History of tobacco use VA-TOBACCO USE SOME DAYS CIGARETTES 09/17/2024 [facility] History of tobacco use VA-TOBACCO DOESNT USE WI 30 MIN WAKEUP 09/10/2023 [facility] History of tobacco use VA-TOBACCO FORMER USER 09/19/2022 [facility] History of tobacco use VA-TOBACCO USER EVERY DAY 03/20/2021 [facility] History of tobacco use VA-TOBACCO FORMER USER 03/07/2020 [facility] History of tobacco use QUIT TOBACCO >12 MO and <7 YRS AGO 03/11/2018 [facility] History of tobacco use QUIT TOBACCO >7 YEARS AGO 08/12/2015 [facility] History of tobacco use QUIT TOBACCO IN THE LAST 12 MONTHS 04/15/2014 [facility] History of tobacco use QUIT TOBACCO >12 MO and <7 YRS AGO 01/28/2013 [facility] Plan of Care List of future care activities from Department of [facility] facilities. Additional future care activities may be listed in the Assessment and Plan section. Date/Time Care Activity Care Activity Detail Facili ty 01/26/2025 AMBULATORY - MEDICINE AMBULATORY - MEDICI [place] ROSALIND MACARIOOC
--- OUTSIDE RECORDS SUMMARY | 2025-01-25 13:21 | XMS_ITS | Patient Health Record ---
Author Organization [facility] Address [address] [place] [address] Support Name Relationship Address Phone Tyree Buckley Guarantor Unknown [phone] Reason For Referral No Information Plan Of Treatment Next Appt Details Provider Name:Venus Jack, 02/02/2025 09:40:00 AM, [address] [place], [address],
--- OUTSIDE RECORDS SUMMARY | 2025-01-25 13:23 | XMS_ITS | Clinical Summary ---
Author Organization [facility] Address [address] [facility] Attn: Epic Prelude ADT ROSALIND ALEXANDRA [address] Care Team Providers Care Chiropractic Doctor Name Role Phone Unavailable Primary Care Provider [...] daily. 0 Active naloxone (NARCAN) 4 mg/spray [place], Non-Aerosol Administer 1 spray (4 mg) in [...] drink = 0.6 oz pur e alcohol) Feeling Safe Answer Date Recorded Within the last year, have y ou been afraid of your partner or ex-partner? No 09/26/2019 Within the last year, have y ou been humiliated or emotionally abused in other ways by your partner or ex-partner? No Within the last year, have y ou been kicked, hit, slapped, or otherwise physically hurt by your partner or ex-partner? No 09/26/2019 Within the last year, have y ou been raped or forced to have any kind of sexual activity by your partner or ex-partner? No 09/26/2019 Financial Resource Strain Answer Date R ecorded How hard is it for you to pa y for the very basics like food, housing, medical care, and heating? Not hard at all 09/26/2019 Food Insecurity Answer Date Recorded Within the past 12 months, y ou worried that your food would run out before you got the money to buy more. Never true 09/26/19 20 Within the past 12 months, t he food you bought just didn't last and you didn't have money to get more. Never true 09/26/2019 Transportation Needs Answer Date Record ed In the past 12 months, has l ack of transportation kept you from medical appointments or from getting medications? No 09/02 In the past 12 months, has l ack of transportation kept you from meetings, work, or from getting things needed for daily living? No 09/26/2019 Feeling Safe Answer Date Recorded Are you in a relationship wi th someone who hurts you emotionally and/or physically? No 10/15/2023 Sex and Gender Information Value Date Recorded Sex Assigned at Not on file Legal Sex Male 8:[address] Gender Identity Not on file Sexual Orientation [...] Health Maintenance Due Date Last Done Comments DIABETES ANNUAL FOOT EXAM 09/21/1997 DIABETES MICROALBUMIN ANNUAL SCREEN 09/21/1997 LDL CHOLESTEROL ANNUAL 09/21/1997 HEPATITIS B VACCINES (1 of 3 - 19+ 3-dose series) 09/21/1998 HPV VACCINES (1 - 3-dose SCD M series) 09/21/2006 DIABETES ANNUAL RETINAL EXAM 05/15/2023 05/15/2022 DIABETES [...] % 09/28/2019 8:05 AM CDT [facility] EST. AVG GLUCOSE, A1C 186 mg/dL 09/28/2019 8:[address] [facility] Blood Venipuncture / Unknown 09/26/2019 2:17 AM CDT 09/26/2019 2:24 AM CDT Narrative [facility] - 09/28/2019 8:05 AM CDT HGB A1C INTERPRETATION NORMAL: <5.7% PRE-DIABETES: 5.7 - 6.4% DIABETES: 6.5% OR GREATER us Cosmo Olivarez MD CHEMISTRY ORDERABLES Final R esult [facility] CLIA# [id number] [address] [place] [address] [facility] CLIA# [id number] [facility] [place] [address] from Last 3 Months or Most Recently Relevant to Health Maintenance Insurance Advance Directives For more information, please contact: [phone] * Full Code (Latest Code Status on File) Date Activated Date Inactivated Comments 10/15/2023 9:22 AM 10/15/2023 1:49 PM
[2025-01-25 13:30] VITALS: BP 164/106; PULSE 80; RESP 17; TEMP 36.7; O2SAT 98; BMI 56.2
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
--- NOTE | 2025-01-25 14:56 | USCV_ITS ---
Tyree Buckley Age: 44 Gender: M : 1980 Exam Date: 01/25/2025 15:28 Ordering Phys: Miquel Marlow DO Technologist: VENUS Exam Location: [facility] [place] Indication: LE Calf Pain HISTORY: Lower extremity pain. PROCEDURES: Venous duplex imaging was performed in bilateral lower extremities. The following venous structures were evaluated: common femoral vein, profunda vein, proximal portion of the greater saphenous vein, superficial femoral vein, and the popliteal vein. In addition, the posterior tibial veins were evaluated. In addition, the posterior tibial and peroneal trunk were evaluated. Serial compression, augmentation maneuvers, and spectral Doppler flow evaluation were performed. FINDINGS: No evidence of DVT seen in any vessel visualized at this time. CONCLUSIONS No evidence of right lower extremity DVT. No evidence of left lower extremity DVT. Endy iLao MD (Electronically Signed) Final Date: 25 January 2025 16:03 S
[2025-01-25] MEDS: promethazine 25 mg/mL SDV 1 mL IM (15:01)
[2025-01-25 15:06] VITALS: BP 162/91; PULSE 82; RESP 16; O2SAT 98
[2025-01-25 16:17] VITALS: BP 153/91; PULSE 77; O2SAT 97
== END 2025-01-25 16:18 | disposition home or self-care (01) ==
PROVIDERS: Emergency Provider Family Medicine; PCP Family Medicine
DX: M79.604 Pain in right leg (principal); M79.605 Pain in left leg
CPT/HCPCS: 93970; 96372; 99284; J1885; J2550

== ENCOUNTER → 2025-02-02 15:40 | Outpatient (BNVA) | payer OTHER, SELFPAY ==
[2024-09-15 12:35] VITALS: BP 201/110; BMI 56.7
== END ==
PROVIDERS: PCP Family Medicine; Visit Provider Orthopaedic Surgery
DX: M48.061 Spinal stenosis, lumbar region without neurogenic claudication (principal)
CPT/HCPCS: 99203

== ENCOUNTER → 2025-02-03 10:33 | Outpatient (BNVA) | payer OTHER, SELFPAY ==
[2024-09-15 12:35] VITALS: BP 201/110; BMI 56.7
== END ==
PROVIDERS: PCP Family Medicine; Visit Provider Student in an Organized Health Care Education/Training Program
DX: M65.342 Trigger finger, left ring finger (principal)
CPT/HCPCS: 99214

== ENCOUNTER → 2025-02-08 12:51 | Outpatient (BNVA) | payer OTHER, SELFPAY ==
[2024-09-15 12:35] VITALS: BP 201/110; BMI 56.7
== END ==
PROVIDERS: PCP Family Medicine; Visit Provider Podiatrist Foot & Ankle Surgery
DX: E11.42 Type 2 diabetes mellitus with diabetic polyneuropathy (principal); L60.3 Nail dystrophy; L84 Corns and callosities; I73.9 Peripheral vascular disease, unspecified; M21.41 Flat foot [pes planus] (acquired), right foot; M21.42 Flat foot [pes planus] (acquired), left foot; R20.9 Unspecified disturbances of skin sensation; R23.4 Changes in skin texture; Z79.84 Long term (current) use of oral hypoglycemic drugs
CPT/HCPCS: 11056; 11721; 99213

== ENCOUNTER 2025-02-11 08:07 | Outpatient (CLI) | payer OTHER, SELFPAY ==
[2024-09-15 12:35] VITALS: BP 201/110; BMI 56.7
--- NOTE | 2025-02-11 08:19 | XRR_ITS ---
PROCEDURE INFORMATION: Exam: XR Lumbosacral Spine Exam date and time: 02/11/2025 8:25 AM Age: 44 years old Clinical indication: Low back pain; Additional info: Spondylosis of lumbosaral region w/o myelopathy TECHNIQUE: Imaging protocol: Radiologic exam of the lumbosacral spine. Views: 6 or more views. Including flexion and extension views. COMPARISON: CT lumbar spine wo con* [id number] 12/28/2024 8:42 AM FINDINGS: Tubes, catheters and devices: Mesh material is again noted overlying the abdominal wall. Bones/joints: No fracture or malalignment. Vertebral body heights are maintained. No suspicious osseous lesions. No spondylolisthesis during flexion extension views. Disc heights are within normal limits. Soft tissues: Unremarkable. XR/XR lumbar spine 6V w f/e [id number] IMPRESSION: No acute findings.
--- NOTE | 2025-02-11 08:19 | XRR_ITS ---
PROCEDURE INFORMATION: Exam: XR Cervical Spine Exam date and time: 02/11/2025 8:25 AM Age: 44 years old Clinical indication: Neck pain; Additional info: Cervical spondylosis TECHNIQUE: Imaging protocol: Radiologic exam of the cervical spine. Views: 6 or more views. COMPARISON: CT cervical spin wo con* [id number] 08/27/2019 8:31 PM FINDINGS: Bones/joints: The C7-T1 articulation is obscured on lateral views. Otherwise, the cervical spine is in normal alignment. The open-mouth view reveals an intact odontoid process and ring of C1. No fracture or vertebral body height loss. No evidence of spondylolisthesis during flexion and extension views. Anterior endplate spurs and anterior longitudinal ligament calcification are noted at the C4-C5 disc level. Uncinate hypertrophy moderately narrows the left C6-C7 foramen. Soft tissues: Prevertebral soft tissue thickness is within normal limits. XR/XR cervical spine min 6V [id number] IMPRESSION: 1. Mild degenerative disc disease at C4-C5. 2. Left C6-C7 foraminal narrowing.
== END 2025-02-11 08:08 | disposition home or self-care (01) ==
LOC: RAD 08:14
PROVIDERS: PCP Family Medicine; Visit Provider Student in an Organized Health Care Education/Training Program
DX: M47.817 Spondylosis without myelopathy or radiculopathy, lumbosacral region (principal)
CPT/HCPCS: 72052; 72114

== ENCOUNTER 2025-02-12 10:30 | Outpatient (CLI) | payer OTHER, SELFPAY ==
[2024-09-15 12:35] VITALS: BP 201/110; BMI 56.7
--- NOTE | 2025-02-12 10:30 | USR_ITS ---
PROCEDURE INFORMATION: Exam: US Bilateral Noninvasive Physiologic Study of the Lower Extremity Arteries, Limited Exam date and time: 02/12/2025 10:26 AM Age: 44 years old Clinical indication: Pain; Leg, lower; Bilateral; Additional info: Decreased pedal pulses TECHNIQUE: Imaging protocol: Bilateral Limited bilateral noninvasive physiologic studies of lower extremity arteries. Waveforms were obtained and evaluated. Images were documented and archived. Exam is limited. COMPARISON: MR knee LT wo con* [id number] 07/07/2024 4:47 PM FINDINGS: Right Ankle-Brachial Index: 1.38. Negative for stenosis Left Ankle-Brachial Index: 1.4. Negative for stenosis US/CV ankle brachial index [id number] IMPRESSION: No evidence of stenosis or occlusion in the lower extremity.
== END 2025-02-12 10:31 | disposition home or self-care (01) ==
LOC: RAD 10:30
PROVIDERS: PCP Family Medicine; Visit Provider Podiatrist Foot & Ankle Surgery
DX: R09.89 Other specified symptoms and signs involving the circulatory and respiratory systems (principal)
CPT/HCPCS: 93922

== ENCOUNTER 2025-03-05 05:37 | Day surgery (SDC) | payer OTHER, SELFPAY ==
[2024-09-15 12:35] VITALS: BP 201/110; BMI 56.7
[2025-03-05] VITALS (12 sets, daily range): BP systolic 106–164; BP diastolic 65–102; PULSE 64–76; RESP 16–19; TEMP 36.2–36.6; O2SAT 91–99; BMI 55.3
[2025-03-05] MEDS: acetaminophen 1,000 MG/100 ML PIGGYBACK 400 MG IV (06:26)
--- NOTE | 2025-03-05 06:48 | W.PM.OPSUD ---
Surgery/Procedure H&P Update DATE OF PROCEDURE: March 05, 2025 DATE H&P PERFORMED: 02/03/25 H&P UPDATE INFORMATION: I have reviewed H&P completed within last 30 days, I have examined patient prior to procedure and No changes to prior documentation PREOP DIAGNOSIS: Left ring finger trigger PRIMARY INDICATION FOR PROCEDURE: Left ring finger trigger PLANNED PROCEDURE: Operation Date: 03/05/25 07:30 Proposed Procedures p LEFT Ring Finger Trigger Finger Release(Left) - Celestino Khanna DO
--- NOTE | 2025-03-05 06:52 | ANES.PREANE2 ---
Pre-Anesthetic Assessment Height/Weight: Height 5 ft 10 in Weight 386 lb Temp Pulse Resp BP Pulse Ox O2 Del Method 97.1 F L 75 18 164/102 99 Room Air 03/05/25 06:32 03/05/25 06:32 03/05/25 06:32 03/05/25 06:32 03/05/25 06:32 03/05/25 06:34 Preop Diagnosis: Left ring finger trigger Operation Date: 03/05/25 07:30 Proposed Procedures p LEFT Ring Finger Trigger Finger Release(Left) - Celestino Otsego, DO Was Beta Perfecto taken within 24 hours: N/A Was Clonidine taken within 24 hours: N/A Last intake: Intake Last Liquid Date 03/04/25 Last Liquid Time 23:30 Last Solid Date 03/04/25 Last Solid Time 23:30 Social No alcohol and No tobacco Exam alert, oriented x 3, clear to auscultation bilaterally and regular rate & rhythm Airway Submandibular: within normal limits Cervical ROM: within normal limits Mallampati: Class III Anesthetic Plan ASA status: 3 Anesthesia: General Other: No prior issues with anesthesia NPO since yesterday evening History of GERD on omeprazole Hypertension on amlodipine History of PVD, on chronic Plavix. Last taken in 02/25/2025 Type 2 diabetes, no insulin. Preop BS 130 Alcohol use disorder in remission BMI 55 KLARISSA, no CPAP because he says he lost significant amount of weight Plan for GETA Medications/Allergies Home Medications ?Medication ?Instructions ?Recorded ?Confirmed ?Last Taken ?Type aspirin 81 mg tablet,delayed 81 mg PO QAM 08/02/20 03/04/25 02/25/25 History release cholecalciferol (vitamin D3) 25 25 mcg PO QAM 09/26/21 03/04/25 03/04/25 History mcg (1,000 unit) tablet (Vitamin D3) High Top Velcro Tennis Shoes #1 ea 06/18/22 02/08/25 Unknown Rx amlodipine 10 mg tablet 10 mg PO DAILY 06/25/22 03/04/25 03/04/25 History RIGHT KNEE [employer]AGE [employer]IVER BRACE #1 ea 11/14/23 02/08/25 Unknown Rx PIP extension splint #1 ea 02/18/24 02/08/25 Unknown Rx blood-glucose sensor 02/19/24 02/08/25 Unknown History diclofenac sodium 1 % topical gel 2 g topical ONCE PRN Pain 02/19/24 03/05/25 09/30/24 History (Arthritis Pain (diclofenac)) lamotrigine 200 mg tablet 100 mg PO DAILY 02/19/24 03/04/25 03/04/25 History omeprazole 40 mg capsule,delayed 40 mg PO QAM 02/19/24 03/04/25 03/04/25 History release rosuvastatin 40 mg tablet 40 mg PO DAILY 02/19/24 03/04/25 03/04/25 History calcium carbonate 260 mg PO BID 12/28/24 03/04/25 03/04/25 History ergocalciferol (vitamin D2) 1,250 1,250 mcg PO Q7D 12/28/24 03/05/25 12/27/24 History mcg (50,000 unit) capsule (Vitamin D2) hydrocortisone 1 % topical cream 1 applic topical TID PRN 12/28/24 03/05/25 12/27/24 History seborrheic dermatitis metformin 500 mg tablet 1,000 mg PO BIDWMEAL 12/28/24 03/04/25 03/04/25 History naltrexone 50 mg tablet 50 mg PO DAILY 12/28/24 03/05/25 12/28/24 History tirzepatide 2.5 mg/0.5 mL 2.5 mg SUBCUT Q7D 12/28/24 03/04/25 02/25/25 History subcutaneous pen injector tizanidine 4 mg tablet 4 mg PO Q6H PRN muscle spasticity 12/28/24 03/05/25 Unknown Rx #20 tabs Diabetic shoes #1 ea 12/29/24 02/08/25 Unknown Rx clopidogrel 75 mg tablet 75 mg PO DAILY #30 tabs 01/20/25 03/04/25 02/25/25 Rx tramadol 50 mg tablet 50 mg PO Q6H PRN pain 5 days #20 03/05/25 Unknown Rx tabs Allergies Allergy/AdvReac Type Severity Reaction Status Date / Time fentanyl Allergy ADR-Itching Verified 03/05/25 06:08 morphine AdvReac ADR-Confusi Verified 03/05/25 06:08 on Current Medications Generic Name Dose Route Start Last Admin Trade Name Freq PRN Reason Stop Dose Admin Sodium Chloride 1,000 mls @ 30 mls/hr 03/05/25 06:00 03/05/25 06:26 Sodium Chloride 0.9% IV 03/06/25 05:59 30 mls/hr .Q24H RAUL Administration PFSH Anesthesia Medical History (Updated 02/08/25 @ 15:13 by Darryl Womack DPM) Psychiatric care Morbid obesity Diabetic peripheral neuropathy associated with type 2 diabetes mellitus Hx MRSA infection DM type 2 (diabetes mellitus, type 2) Obstructive sleep apnea Morbid obesity Benign essential HTN Supraventricular tachycardia Alcohol use disorder, severe, in early remission Bipolar disorder, in partial remission, most recent episode manic Chronic post-traumatic stress disorder (PTSD) Binge eating disorder Tinea cruris Nephropathy Nephrolithiasis GERD (gastroesophageal reflux disease) Surgical History [place]ophagog[place]oscopy ([place]GD) 6[place] [facility] [place] [facility] [place] of ankle surgery S/P cholecystectomy S/P knee surgery S/P adenoidectomy S/P vasectomy S/P hernia repair H/O oral surgery S/P tendon repair S/P myringotomy with insertion of tube Family History Other Adopted Social History Smoking and tobacco/nicotine status: current some day tobacco/nicotine user e-cigarettes E-Cigarette Details: vaporizer device and without nicotine Alcohol intake: former Year of sobriety/quit date alcohol: 11mo Substance/Drug Use: current Other substance/drug use details: CBD Adopted: Yes Caregiver/support person: No Lives independently: Yes Household members: spouse Housing: Apartment Marital status: Number of children: 2 Highest education level completed: Some College, No Degree service: Yes status: Medically Discharged/Retired branch: [employer] Current occupational status: disabled Pets and animals: Yes Pets & animals: dog(s) Leisure activites: games Sexually active: Yes Do you think of yourself as: Straight/Heterosexual Current gender identity: Male Leda/Holiness: None Special leda needs: No Agree to transfusion: Yes Data Anesthesia Cardiac Studies: Echocardiogram 03/22/23 Sestamibi Stress Test (Cardiology) 01/07/20
[2025-03-05] MEDS: ceFAZolin 3,000 MG in sodium chloride 0.9% (plus) 100 ML 200 MG IV (07:04)
[2025-03-05] MEDS: ROPivacaine 0.5% SDV 30 mL 150 MG INJECTION (07:10)
--- NOTE | 2025-03-05 07:23 | W.PM.BPON ---
Date of Procedure: 03/05/2025 Surgeon: Celestino Khanna DO Continuous Improvement Director(s): None Procedure(s) performed: Left ring finger trigger release Findings of the procedure(s): Underwent procedure as planned without issues or complications taken recovery in stable condition Estimated blood loss: 3 mL Specimen(s) removed: None Post-operative diagnosis: Left ring finger trigger release
--- NOTE | 2025-03-05 07:24 | P.OP_ITS ---
Operative Report Date of procedure: March 05, 2025 Surgeon: Celestino Khanna DO Procedure: Preoperative diagnosis: Left ring finger trigger Post-op diagnosis: Same Procedure done: Left?Ring?finger?trigger?release Surgeon: Celestino Khanna DO Estimated blood loss: 3cc Tourniquet time 4mins Complications: None Condition: stable Disposition: same day Brief History: Patient's been seen and worked up in the outpatient setting and findings consistent with preoperative diagnosis of Left?Ring?finger?trigger.? He is failed conservative treatment.? Continues to have mechanical locking and catching.? Severe pain as well.? We talked about treatment options nonoperative versus operative intervention.? ?Patient understands the risk benefits complication alternatives of surgical nonsurgical treatment options.? Understanding his risks with surgery he elects proceed with surgical intervention.? Consent obtained in the preoperative holding area for left ring finger trigger release.? Here today to proceed with surgical intervention.? All questions answered. Procedure: Patient was seen and evaluated in the preoperative holding area.? Consent was reviewed and signed with patient.? Seen evaluated by Anesthesia Department.? Onc e cleared for surgery was brought back to the operative suite.? Placed in supine position on the OR table all bony prominences well-padded patient properly secured to the bed.? Patient's Left arm was then placed to the armboard.? A nonsterile tourniquet applied to the Left upper arm.? Patient's Left upper extremity was then prepped and draped in standard orthopedic fashion.? Final timeout performed.? Patient received appropriate preoperative antibiotics. Esmarch tourniquet was used exsanguinate the Left upper extremity tourniquet insufflated to 250 mmHg. Under sterile aseptic technique local digital block was performed to the Left?Ring?finger.? Once appropriately anesthetized a standard oblique incision was made centering over the A1 eugenia following patient's flexor crease.? Sharp scalpel incision was made only through skin and then switched to Littler dissection scissors and spread longitudinally directly over the flexor tendon sheath.? I then mobilized both radially and ulnarly and Kasdan retractors were used and placed by my reference assistant to protect neurovascular bundle.? Next I visualized the A1 eugenia and this was incised with a scalpel.? I then switched to dissection scissors and released the A1 eugenia both proximally as well as distally to its entirety.? Significant tendon sheath fluid was noted consistent with inflammation.? Mild fraying of the flexor tendons noted but no tear.? At this point I utilized a rag nail and pulled the tendons FDS and FDP out of the incision and no?triggering was noted.? I then took the finger through active range of motion and actively flexed and extended finger with no?triggering.? This point thorough irrigation was performed.? Tourniquet deflated hemostasis satisfactory with bipolar.? I then subsequently closed the incision with in terrupted nylon suture.? Xeroform 4 x 4's, Kerlix and an Phillip wrap was applied for a bulky soft dressing.? Patient was then subsequently awakened from anesthesia and taken to PACU in stable condition tolerated procedure without issues. Disposition: Patient taken back in stable condition recovering well.? Patient will receive appropriate discharge instruction as well as pain medication postoperatively.? Patient to follow-up with me in the office in 2 weeks for repeat evaluation and incision check.? Patient understands that any questions or concerns and contact the office.? All questions answered.
--- NOTE | 2025-03-05 08:50 | ANE.PACU2 ---
Inpatient post-anesthesia follow up: Airway intact: Yes Vital signs: Temperature 97.9 F Pulse Rate 67 Respiratory Rate 16 Blood Pressure 127/83 Pulse Oximetry 94 Oxygen Delivery Me thod Room Air Oxygen Flow Rate Fraction of Inspir ed Oxygen Hydration adequate: Yes Nausea and vomiting: No Pain level: 1 Mental status: Baseline
== END 2025-03-05 08:50 | disposition home or self-care (01) ==
PROVIDERS: PCP Family Medicine; Visit Provider Student in an Organized Health Care Education/Training Program
PROC: (CPT 26055; principal; 2025-03-05 07:30)
DX: M65.342 Trigger finger, left ring finger (principal); K21.9 Gastro-esophageal reflux disease without esophagitis; I10 Essential (primary) hypertension; I73.9 Peripheral vascular disease, unspecified; E11.9 Type 2 diabetes mellitus without complications; G47.33 Obstructive sleep apnea (adult) (pediatric); Z79.82 Long term (current) use of aspirin; Z79.84 Long term (current) use of oral hypoglycemic drugs; E66.01 Morbid (severe) obesity due to excess calories; Z68.43 Body mass index [BMI] 50.0-59.9, adult; F43.12 Post-traumatic stress disorder, chronic; F31.9 Bipolar disorder, unspecified; F17.290 Nicotine dependence, other tobacco product, uncomplicated
CPT/HCPCS: 26055; 36416; 82962; J0131; J0330; J0690; J1171; J1885; J2250; J2704; J2795; J7030; J9999

== ENCOUNTER → 2025-03-19 10:26 | Outpatient (BNVA) | payer OTHER, SELFPAY ==
[2024-09-15 12:35] VITALS: BP 201/110; BMI 56.7
== END ==
PROVIDERS: PCP Family Medicine; Visit Provider Physician Assistant
DX: Z98.890 Other specified postprocedural states (principal); Z09 Encounter for follow-up examination after completed treatment for conditions other than malignant neoplasm
CPT/HCPCS: 99024

== ENCOUNTER → 2025-03-29 07:19 | Outpatient (BNVA) | payer OTHER, SELFPAY ==
[2024-09-15 12:35] VITALS: BP 201/110; BMI 56.7
== END ==
PROVIDERS: PCP Family Medicine; Visit Provider Podiatrist Foot & Ankle Surgery
DX: E11.42 Type 2 diabetes mellitus with diabetic polyneuropathy (principal); L60.3 Nail dystrophy; L84 Corns and callosities; E11.8 Type 2 diabetes mellitus with unspecified complications; I73.9 Peripheral vascular disease, unspecified; M21.41 Flat foot [pes planus] (acquired), right foot; M21.42 Flat foot [pes planus] (acquired), left foot; R20.9 Unspecified disturbances of skin sensation; R23.4 Changes in skin texture; Z79.84 Long term (current) use of oral hypoglycemic drugs
CPT/HCPCS: 11056; 11721; 99213

== ENCOUNTER → 2025-05-12 11:17 | Outpatient (BNVA) | payer OTHER, SELFPAY ==
[2025-05-10 15:34] VITALS: BP 201/110; BMI 56.7
== END ==
PROVIDERS: PCP Family Medicine; Visit Provider Podiatrist Foot & Ankle Surgery
DX: M79.671 Pain in right foot (principal); M65.971 Unspecified synovitis and tenosynovitis, right ankle and foot; R60.9 Edema, unspecified
CPT/HCPCS: 73630; 99213

== ENCOUNTER → 2025-05-18 12:59 | Outpatient (BNVA) | payer OTHER, SELFPAY ==
[2025-05-10 15:34] VITALS: BP 201/110; BMI 56.7
== END ==
PROVIDERS: PCP Family Medicine; Visit Provider Student in an Organized Health Care Education/Training Program
DX: M65.342 Trigger finger, left ring finger (principal); Z98.890 Other specified postprocedural states; M25.642 Stiffness of left hand, not elsewhere classified
CPT/HCPCS: 99213